=== PATIENT | male | born 1995 | race Caucasian/White ===

== ENCOUNTER → 2018-06-30 16:05 | Outpatient (CLI) | payer MEDICARE, MEDICAID, SELFPAY ==
[2015-10-23 00:17] VITALS: BMI 44.2
--- NOTE | 2018-06-30 16:18 | RAD_ITS ---
STUDY: X-RAY - ABDOMEN/PELVIS REASON FOR EXAM: Male, 22 years old. Kidney stone. TECHNIQUE: Three AP supine views of the abdomen and pelvis. COMPARISON: CT abdomen pelvis without contrast May 21, 2017 FINDINGS: There are bilateral posterior spinal fixation rods, secured in multiple levels with multiple cerclage wires. The rods are also connected to each other by transverse metal bars in the upper thoracic and lower lumbar regions. There is suggestion of a mid thoracic lordosis and upper lumbar kyphosis as well as extensive multilevel degenerative changes of the spine. Images are further distorted by rotation of the patient to the right. Grossly normal visualized lung bases. The heart size is difficult to accurately evaluate Gas-filled loops of bowel predominantly reside in the anterior inferior abdomen, but gas also mildly distends the rectal vault. The pattern is nonspecific. There is no demonstrated free abdominal air. The visualized liver, spleen and kidneys are grossly normal in size and morphology. The ventriculoperitoneal catheter overlaps the right chest and right abdomen, the distal catheter is not well seen. A separate catheter, presumably a suprapubic Bonilla tube, overlaps the low abdominal wall. A few small phleboliths project in the pelvic soft tissues. There are stable chronic deformities of the lower pelvis and hips. RAD/Abdomen Single View IMPRESSION: 1. No demonstrated kidney stone. 2. Nonspecific bowel gas pattern with gas in the rectal vault. 3. Chronic deformities of the spine and pelvis again noted. Bilateral spinal fixation rods again seen as well. 4. Ventriculoperitoneal catheter are again seen overlying the right chest and right abdomen, although its tip is not visualized. A probable suprapubic Bonilla catheter also overlaps the low abdomen. Electronically Signed: Rosalino Heard MD at 17:17 EST , Service support ,
[2018-06-30 16:57] LABS: Hematocrit 44.3 % (40-54); Hemoglobin 12.1 g/dl (13.0-16.5); Mean Corp Hgb Conc 27.3 g/gl (32-36); Mean Corpuscular Hgb 22.5 pg (27.0-32.0); Mean Corpuscular Volume 82.5 fL (80-94); Mean Platelet Vol. 10.5 fl (6.2-12.0); Platelet Count 550 K/mm3 (150-450); RBC Distribution Width CV 22.1 % (11.6-14.6); RBC Distribution Width SD 64.2 fl (35.1-43.9); Red Blood Count 5.37 M/mm3 (4.6-6.2); White Blood Count 7.1 K/mm3 (4.4-11.0)
[2018-06-30 17:03] LABS: Scan Indicated on CBC? Y/N YES- FLAGS NOTED
[2018-06-30 17:14] LABS: Anion Gap 8 (5-15); BUN 13 mg/dL (7-18); BUN/Creat Ratio 17.1 RATIO (10-20); Calcium,Total 8.5 mg/dL (8.5-10.1); Chloride 102 mmol/L (98-107); Creatinine, Serum 0.76 mg/dL (0.70-1.30); EST Glomerular Filtration Rate 133 mL/min (>60); Est Glom Filt Rate - Afr Amer 161 mL/min (>60); Glucose 84 mg/dL (74-106); Potassium 3.7 mmol/L (3.5-5.1); Sodium Level 141 mmol/L (136-145)
[2018-06-30 17:49] LABS: Differential Comment SCANNED
== END ==
PROVIDERS: Family Provider Family Medicine; PCP Family Medicine; Referring Provider Urology; Visit Provider Urology
DX: Q05.9 Spina bifida, unspecified (principal); N20.0 Calculus of kidney
CPT/HCPCS: 36415; 74018; 80048; 85027

== ENCOUNTER 2018-07-14 10:33 | Emergency (ER) | payer MEDICARE, MEDICAID, SELFPAY ==
[2018-07-14 10:35] VITALS: BP 134/88; PULSE 119; RESP 20; TEMP 37.3; O2SAT 92; BMI 47.5
[2018-07-14 10:50] VITALS: BP 138/82; PULSE 113; RESP 22; TEMP 37.3; O2SAT 94
--- NOTE | 2018-07-14 10:54 | EKG12_ITS ---
Test Reason : SOB Blood Pressure : / mmHG Vent. Rate : 114 BPM Atrial Rate : 114 BPM P-R Int : 118 ms QRS Dur : 082 ms QT Int : 326 ms P-R-T Axes : 026 107 018 degrees QTc Int : 449 ms Sinus tachycardia Rightward axis Borderline ECG No previous ECGs available Confirmed by EDITA DANIEL, MATEO ([id number]), school photograph editor CHARITO WAGGONER ([id number]) on 07/22/2018 9:46:08 AM Referred By: NICK Confirmed By:MATEO KOHLER MD
--- NOTE | 2018-07-14 10:54 | CT_ITS ---
STUDY: CTA CHEST REASON FOR EXAM: Male, 22 years old. Shortness of breath. Tachycardia. Spina bifida and Medina dl fixation. RADIATION DOSAGE (If Supplied By Facility): CTDIvol = ( 25.85 ) mGy, DLP = ( 468.62 ) mGycm TECHNIQUE: The examination was performed with the intravenous administration of Isovue 370 100ML IV. Post-processing of the angiographic images was performed, with multiplanar reformation and 3D reconstruction. Individualized dose optimization techniques were used for this CT. COMPARISON: None. FINDINGS: Limited study due to the patient's physical deformity. Normal enhancement of the main pulmonary artery and right and left pulmonary arteries. Normal enhancement of the bilateral peripheral pulmonary arteries. There is no demonstrated pulmonary embolism. Normal thoracic aorta and visualized great vessels. There is no demonstrated aortic dissection. Moderate sized pericardial effusion. Normal mediastinum. Normal hilar regions. Normal visualized trachea and bronchi. Limited inspiratory effort. Mild degree of vascular congestion. Normal pleura. Normal chest wall structures. Severe kyphoscoliosis with Medina dl fixation. Normal visualized upper abdomen. CT/CTA Chest W/WO Contrast IMPRESSION: Moderate sized pericardial effusion. Poor inspiratory effort with evidence of vascular crowding. Electronically Signed: Jesus Alberto Munoz, at 13:44 EDT , Service support ,
[2018-07-14 11:38] VITALS: BP 125/85; PULSE 114; RESP 27; O2SAT 94
[2018-07-14 11:56] LABS: Absolute Lymphocyte Count 2.12 X10^3/ul (0.83-4.51); Basophil# 0.03 X10^3/uL; Basophil% 0.2 % (0-1); Eosinophils% 3.1 % (0-5); Hematocrit 45.5 % (40-54); Hemoglobin 12.5 g/dl (13.0-16.5); Lymphocyte # 2.12 X10^3/ul (4.0); Lymphocyte % 16.4 % (19-41); Mean Corp Hgb Conc 27.5 g/gl (32-36); Mean Corpuscular Hgb 22.3 pg (27.0-32.0); Mean Corpuscular Volume 81.1 fL (80-94); Mean Platelet Vol. 9.7 fl (6.2-12.0); Monocyte# 1.33 X10^3/uL; Monocyte% 10.3 % (0-10); Neutrophil # 9.01 X10^3/uL (2.7-7.7); Neutrophil % 69.5 % (47-70); Platelet Count 522 K/mm3 (150-450); RBC Distribution Width CV 20.8 % (11.6-14.6); RBC Distribution Width SD 60.4 fl (35.1-43.9); Red Blood Count 5.61 M/mm3 (4.6-6.2)
[2018-07-14 11:57] LABS: Differential Indicated SCAN CRITERIA MET; POSITIVE COUNT NO; POSITIVE DIFFERENTIAL NO; POSITIVE MORPHOLOGY YES
[2018-07-14 12:00] LABS: Absolute Nucleated RBC Count 0.09 10^3/uL (0-5)
[2018-07-14 12:02] LABS: ALB/GLOB Ratio 0.3 RATIO (0.9-2.4); AST(SGOT) 14 U/L (15-37); Alanine Aminotransfer ALT/SGPT 9 U/L (16-61); Alkaline Phosphatase 99 U/L (45-117); Anion Gap 2 (5-15); BUN 23 mg/dL (7-18); BUN/Creat Ratio 25.2 RATIO (10-20); Calcium,Total 8.3 mg/dL (8.5-10.1); Chloride 104 mmol/L (98-107); Creatinine, Serum 0.91 mg/dL (0.70-1.30); EST Glomerular Filtration Rate 108 mL/min (>60); Est Glom Filt Rate - Afr Amer 131 mL/min (>60); Estimated Creatinine Clearance 96.67 ml/min; Globulin 6.5 g/dL (2.2-4.2); Glucose 81 mg/dL (74-106); Protein, Total 8.5 g/dL (6.4-8.2); Sodium Level 140 mmol/L (136-145)
[2018-07-14 12:16] LABS: Lactic Acid 0.8 mmol/L (0.4-2.0)
[2018-07-14 12:33] LABS: BNP,B-Type NATRIURETIC PEPTIDE 507.5 pg/mL (0-100)
[2018-07-14 12:38] LABS: Anisocytosis 1+
[2018-07-14 12:47] LABS: Mucous, Urine 0 SEEN /hpf (<or=2+); Squamous Epithelial Cells - UA 0 SEEN /hpf (0-5)
[2018-07-14 12:50] LABS: Glucose, Dipstick Normal (Normal); Ketone-Dipstick Negative (Negative); Leukocyte Esterase-Dipstick 500 /ul (Negative); Nitrite-Dipstick Positive (Negative); Occult Blood-Urine 250 /ul (Negative); Protein-Dipstick 100 mg/dl (Negative); Specific Gravity, Urine 1.015 (1.002-1.030); Urine Bilirubin Dipstick Negative (Negative); Urine Clarity Turbid (Clear); Urine Urobilinogen Normal (Normal); Urine pH 6.5 (5.0 - 8.0)
[2018-07-14 12:56] LABS: Color, Urine SEE COMMENT BELOW (Yellow); White Blood Cells >100 SEEN /hpf (0-5)
--- NOTE | 2018-07-14 12:56 | ED.VISSUMM ---
- ER Visit Summary Date of Service: 07/14/18 Chief Complaint: Shortness of breath History of Present Illness: The patient is a 22 M with intermittent tachycardia and shortness of breath for 2 months. Today at work he was increasingly short of breath and his pulse ox was 64% on room air. He is not sure what is causing his symptoms. He said he is feeling better with nasal cannula oxygen. He does have a history of paraplegia from spina bifida. History of a suprapubic catheter with UTIs and sepsis. Also reports a history of pressure ulcers. Denies any history of cardiac disease, lung disease, pneumonia, PE, heart failure. Physical Examination: Afebrile. Heart rate 113 and respiratory rate 22. 94% on nasal cannula. Patient is alert and oriented. No acute distress. Sitting and breathing comfortably. He is in a wheelchair. Heart tachycardic but regular. Lungs are clear. Abdomen soft and nontender. Extremities are edematous. Test Results: EKG showed sinus rhythm at a rate of 114. White count 13 and hemoglobin 12.5. Platelets 522. CO2 34, BUN 23. Hepatic panel unremarkable. Coags pending. Urine pending. Troponin normal. BNP 507 and lactate normal. Cultures pending. CTA pending. Emergency Department Course and Treatment: Patient presents with shortness of breath and hypoxia. He is improved on a nasal cannula, but it was causing him some discomfort and he was switched to a Ventimask. He maintained normal saturations. His EKG showed sinus tachycardia and troponin was normal. BNP was 507. CTA was done. This was limited. It was significant for a moderate pericardial effusion. This looks like a new finding. The patient has no known history of this, and I could not identify any prior effusion on other imaging. Patient also has a white count of 13, hemoglobin 12.5, platelets 522. Lactate was normal. Urinalysis showed signs of infection. Cultures are pending. He was treated with Rocephin. He was not in septic shock. The remainder of his workup was unremarkable. I spoke with the hospitalist and assembler for puller over hand here. Because of the new pericardial effusion, they do not have the capabilities to care for him at this facility. The patient requested [facility], but no beds were available so he requested [facility], and they are currently on page for transfer. Recent has remained stable. He is receiving antibiotics and on oxygen. Treatment Plan: As above Disposition: Transfer Impression: 1. UTI 2. Sepsis 3. Pericardial effusion This note was generated with DigiZmart dictation software. It may contain incorrect words, spelling, and punctuation that were not noted in review of the chart prior to signing ED Disposition - Plan for ED Patient: Referrals: Cameron Romero DO [Primary Care Provider] -
[2018-07-14 12:58] LABS: Bacteria 4+ /hpf (None Seen)
[2018-07-14 12:59] LABS: Red Blood Cells-Urine 0-5 SEEN /hpf (0-5)
--- NOTE | 2018-07-14 12:59 | ED.DCSUM_ITS ---
- ER Visit Summary Date of Service: 07/14/18 Chief Complaint: Shortness of breath History of Present Illness: The patient is a 22 M with intermittent tachycardia and shortness of breath for 2 months. Today at work he was increasingly short of breath and his pulse ox was 64% on room air. He is not sure what is causing his symptoms. He said he is feeling better with nasal cannula oxygen. He does have a history of paraplegia from spina bifida. History of a suprapubic catheter with UTIs and sepsis. Also reports a history of pressure ulcers. Denies any history of cardiac disease, lung disease, pneumonia, PE, heart failure. Physical Examination: Afebrile. Heart rate 113 and respiratory rate 22. 94% on nasal cannula. Patient is alert and oriented. No acute distress. Sitting and breathing comfortably. He is in a wheelchair. Heart tachycardic but regular. Lungs are clear. Abdomen soft and nontender. Extremities are edematous. Test Results: EKG showed sinus rhythm at a rate of 114. White count 13 and hemoglobin 12.5. Platelets 522. CO2 34, BUN 23. Hepatic panel unremarkable. Coags pending. Urine pending. Troponin normal. BNP 507 and lactate normal. Cultures pending. CTA pending. Emergency Department Course and Treatment: Patient presents with shortness of breath and hypoxia. He is improved on a nasal cannula, but it was causing him some discomfort and he was switched to a Ventimask. He maintained normal saturations. His EKG showed sinus tachycardia and troponin was normal. BNP was 507. CTA was done. This was limited. It was significant for a moderate pericardial effusion . This looks like a new finding. The patient has no known history of this, and I could not identify any prior effusion on other imaging. Patient also has a white count of 13, hemoglobin 12.5, platelets 522. Lactate was normal. Urinalysis showed signs of infection. Cultures are pending. He was treated with Rocephin. He was not in septic shock. The remainder of his workup was unremarkable. I spoke with the hospitalist and graphics coordinator here. Because of the new pericardial effusion, they do not have the capabilities to care for him at this facility. The patient requested [facility], but no beds were available so he requested [facility], and they are currently on page for transfer. Recent has remained stable. He is receiving antibiotics and on oxygen. Treatment Plan: As above Disposition: Transfer Impression: 1. UTI 2. Sepsis 3. Pericardial effusion This note was generated with Ent[employer] dictation software. It may contain incorrect words, spelling, and punctuation that were not noted in review of the chart prior to signing ED Disposition - Plan for ED Patient: Referrals: Cameron Romero DO [Primary Care Provider] -
[2018-07-14 13:03] VITALS: BP 113/76; PULSE 105; RESP 33; TEMP 37.2; O2SAT 93
[2018-07-14 13:18] LABS: International Normalized Ratio 1.2; Partial Thromboplast Time 32.6 Seconds (24.1-36.2); Prothrombin Time (Protime)PT. 15.3 SECONDS (11.7-14.9)
[2018-07-14] MEDS: Ceftriaxone 1 GM/50 ML BAG IV (13:48)
--- NOTE | 2018-07-14 14:45 | CASEMGMT ---
RN CM Assessment Introduced role of RN CM to patient and parents Oliva Hammond at bedside. Patient is alert, oriented and able to participate in RN CM Assessment. Care providers, pharmacy, and demographics verified. Presentation: CC: Patient states was at work- [employer], [employer] and has c/o SOB, Tachycardia x2 months with increased SOB today, pulse ox 64%ra and Dusky with work nurse. PCP: Dr Cameron Romero Specialists: Uro- Dr Cohen Preferred Pharmacy: [facility] Insurance: Medicaid Prescription Benefit: Yes LNOK: Parents Maida/Victor M Hammond Living Arrangements: Lives with parents in a SS Home with ramp. WC Bound, Requires assistance with all ADL's. Denies having Passport/Waiver Services. Transportation: [employer] ([employer]- Voucher Program) DME: WC, Jessy [employer], Hosp. Bed- [facility], Shower Chair. No preference- preference through insurance. HHC: Yes- Past with [facility]. Current- [facility]- RN for VS/Check SNF: None in past, No preference, through insurance. DC PLAN: Home with resumption of HH and possible Home O2. Goal: Home. Issues: would like some assistance with exchanging hospital bed as [facility] closed and would like a new one since current one- they have to use regular mattress on it. Gatito Smith RNCM
[2018-07-14 15:18] VITALS: BP 113/70; PULSE 115; RESP 24; TEMP 36.9; O2SAT 92
--- NOTE | 2018-07-14 16:31 | ED.RN ---
TALKED TO PABLO CHARISMA ETA TO TAKE PATIENT TO [facility] IS 15 MIN
[2018-07-14 16:33] VITALS: BP 111/70; PULSE 110; RESP 32; TEMP 36.4; O2SAT 95
[2018-07-14 21:07] LABS: NRBC Flagged by Analyzer 0.7 % (0-5)
== END 2018-07-14 17:05 | disposition short-term general hospital (02) ==
PROVIDERS: Emergency Provider Emergency Medicine; Family Provider Family Medicine; PCP Family Medicine
DX: A41.9 Sepsis, unspecified organism (principal); N39.0 Urinary tract infection, site not specified; I31.3 Pericardial effusion (noninflammatory); G82.20 Paraplegia, unspecified; Q05.9 Spina bifida, unspecified
CPT/HCPCS: 36415; 71275; 80053; 81001; 83605; 83880; 84484; 85025; 85610; 85730; 87040; 87077; 87086; 87088; 87186; 93005; 96365; 99285; J7050; Q9967; A4216

== ENCOUNTER 2018-07-28 15:40 | Emergency (ER) | payer MEDICARE, MEDICAID, SELFPAY ==
[2018-07-28 15:41] VITALS: BP 122/72; PULSE 108; RESP 16; TEMP 36.6; O2SAT 90; BMI 46.7
[2018-07-28 16:12] VITALS: BP 106/66; PULSE 94; RESP 16; O2SAT 89
--- NOTE | 2018-07-28 16:38 | ED.VISSUMM ---
- ER Visit Summary Date of Service: 07/28/18 Chief Complaint: Hematuria History of Present Illness: The patient is a 22 M who presents with hematuria that was noticed today. Father states that patient has been passing clots through both his suprapubic catheter site and penis. Father denies any fevers or chills. Mother states that while the patient was at [facility] in [place] his suprapubic catheter was accidentally pulled out with the balloon inflated. Patient is currently being treated for urinary tract infection. Patient had been on Xarelto but this was stopped 5 days ago. Physical Examination: Vital signs are stable except for slight tachycardia of 108. Patient is afebrile. Patient is in no acute distress. Oral mucosa is pink and moist. Neck is supple. Trachea is midline. There is no JVD noted. Heart was regular and tachycardic. Lungs are clear and equal bilateral. Abdomen is soft. Bowel sounds are normal. There is no tenderness. There is no rebound or guarding noted. Test Results: CBC shows a mild anemia with a hemoglobin of 10.4. PT with INR and PTT were obtained and were essentially within normal limits. Metabolic profile was essentially within normal limits. Emergency Department Course and Treatment: Suprapubic catheter was replaced under sterile conditions by myself. Urinalysis was ordered but was unable to be obtained. There is no further bleeding from the stoma, suprapubic catheter, or penis here in the emergency department. Father was instructed to follow-up with the patient's primary care physician in 5-7 days. Patient and his father understood and were agreeable with the plan. All questions were answered. Disposition: Discharge home Impression: Hematuria This note was generated with Gamar dictation software. It may contain incorrect words, spelling, and punctuation that were not noted in review of the chart prior to signing ED Disposition - Plan for ED Patient: Disposition: Home or Assisted Living Diagnosis: Hematuria Instructions: ED Hematuria Referrals: Cameron Romero DO [Primary Care Provider] - Additional Instructions: Continue the Levaquin as prescribed until gone. Follow-up with your primary care physician in 5-7 days. Return if worse in any way.
[2018-07-28 16:41] LABS: International Normalized Ratio 1.1; Partial Thromboplast Time 20.4 Seconds (24.1-36.2); Prothrombin Time (Protime)PT. 14.3 SECONDS (11.7-14.9)
[2018-07-28 16:55] LABS: Anion Gap 4 (5-15); BUN 10 mg/dL (7-18); BUN/Creat Ratio 12.9 RATIO (10-20); Calcium,Total 8.4 mg/dL (8.5-10.1); Chloride 98 mmol/L (98-107); Creatinine, Serum 0.78 mg/dL (0.70-1.30); EST Glomerular Filtration Rate 130 mL/min (>60); Est Glom Filt Rate - Afr Amer 157 mL/min (>60); Estimated Creatinine Clearance 112.78 ml/min; Glucose 91 mg/dL (74-106); Sodium Level 135 mmol/L (136-145)
[2018-07-28 17:00] LABS: Absolute Lymphocyte Count 2.49 X10^3/ul (0.83-4.51); Absolute Neutrophil Count 8.4 X10^3/uL (2.0-7.7); Basophil# 0.04 X10^3/uL; Basophil% 0.3 % (0-1); Eosinophil# 0.69 X10^3/uL; Eosinophils% 5.5 % (0-5); Hematocrit 36.5 % (40-54); Hemoglobin 10.4 g/dl (13.0-16.5); Lymphocyte # 2.49 X10^3/ul (4.0); Lymphocyte % 19.7 % (19-41); Mean Corp Hgb Conc 28.5 g/gl (32-36); Mean Corpuscular Hgb 22.3 pg (27.0-32.0); Mean Corpuscular Volume 78.2 fL (80-94); Monocyte% 7.9 % (0-10); Neutrophil # 8.38 X10^3/uL (2.7-7.7); Neutrophil % 66.3 % (47-70); Platelet Count 423 K/mm3 (150-450); RBC Distribution Width CV 22.2 % (11.6-14.6); RBC Distribution Width SD 62.1 fl (35.1-43.9); Red Blood Count 4.67 M/mm3 (4.6-6.2); White Blood Count 12.6 K/mm3 (4.4-11.0)
[2018-07-28 17:05] LABS: Differential Indicated SCAN CRITERIA MET; POSITIVE COUNT NO; POSITIVE DIFFERENTIAL NO; POSITIVE MORPHOLOGY YES
[2018-07-28 17:07] LABS: Anisocytosis 1+; Hypochromasia RARE; Microcytosis 1+; Ovalocyte RARE; Platelet Estimate SLT INC (ADEQ); Platelet Morphology LARGE; Target Cells 1+
--- NOTE | 2018-07-28 19:39 | ED.RN ---
FATHER RINGS OUT STATING THAT THEY WOULD LIKE TO BE DISCHARGED AND THEY HAVE A FOLLOW UP APPOINTMENT WITH HIS PCP TOMORROW. DR. VELÁZQUEZ MADE AWARE.
[2018-07-28 19:51] VITALS: BP 121/80; PULSE 99; RESP 16; O2SAT 100
[2018-07-28 19:52] LABS: Bacteria 0 SEEN /hpf (None Seen); Mucous, Urine 0 SEEN /hpf (<or=2+); Squamous Epithelial Cells - UA 0 SEEN /hpf (0-5)
[2018-07-28 19:53] LABS: Glucose, Dipstick Normal (Normal); Ketone-Dipstick Negative (Negative); Leukocyte Esterase-Dipstick 500 /ul (Negative); Nitrite-Dipstick Negative (Negative); Occult Blood-Urine 250 /ul (Negative); Protein-Dipstick 500 mg/dl (Negative); Urine Bilirubin Dipstick Negative (Negative); Urine Clarity Cloudy (Clear); Urine Urobilinogen Normal (Normal)
[2018-07-28 19:57] LABS: Color, Urine SEE COMMENT BELOW (Yellow)
[2018-07-28 20:02] LABS: Red Blood Cells-Urine > 100 SEEN /hpf (0-5); White Blood Cells 5-10 SEEN /hpf (0-5)
[2018-07-28 20:15] VITALS: BP 111/70; PULSE 90; RESP 16; O2SAT 99
== END 2018-07-28 20:18 | disposition home or self-care (01) ==
PROVIDERS: Emergency Provider Emergency Medicine; Family Provider Family Medicine; PCP Family Medicine
DX: R31.9 Hematuria, unspecified (principal); N39.0 Urinary tract infection, site not specified; E66.9 Obesity, unspecified; R19.7 Diarrhea, unspecified; Q05.9 Spina bifida, unspecified
CPT/HCPCS: 80048; 81001; 85025; 85610; 85730; 99284; J7030; A4216

== ENCOUNTER → 2018-09-07 16:47 | Outpatient (CLI) | payer MEDICARE, MEDICAID, SELFPAY ==
[2018-09-07 13:42] VITALS: BMI 46.6
[2018-09-07 17:56] LABS: Anion Gap 3 (5-15); BUN 16 mg/dL (7-18); Calcium,Total 9.1 mg/dL (8.5-10.1); Chloride 104 mmol/L (98-107); EST Glomerular Filtration Rate 147 mL/min (>60); Est Glom Filt Rate - Afr Amer 178 mL/min (>60); Glucose 81 mg/dL (74-106); Magnesium 2.3 mg/dL (1.6-2.6); Sodium Level 138 mmol/L (136-145)
== END ==
PROVIDERS: Family Provider Family Medicine; PCP Family Medicine; Referring Provider Internal Medicine Cardiovascular Disease; Visit Provider Internal Medicine Cardiovascular Disease
DX: I31.3 Pericardial effusion (noninflammatory) (principal); I27.21 Secondary pulmonary arterial hypertension
CPT/HCPCS: 36415; 80048; 83735

== ENCOUNTER → 2018-09-30 15:11 | Outpatient (CLI) | payer MEDICARE, MEDICAID, SELFPAY ==
[2018-09-07 13:42] VITALS: BMI 46.6
--- NOTE | 2018-09-30 15:20 | ECHOCS_ITS ---
Reason For Study: Pericardial Effusion Procedure This was a 2D Doppler, Color Flow transthoracic echocardiogram. The study was technically difficult. Contrast injection was performed. Patient was scanned in wheel chair. Exam performed in department. Left Ventricle Normal LV size. Moderate concentric left ventricular hypertrophy. Left ventricular systolic function is normal. The estimated ejection fraction is 55 %. No regional wall motion abnormalities noted. Atria The left atrium is not well visualized. The right atrium is not well visualized. Mitral Valve Mitral valve not well visualized. Tricuspid Valve The tricuspid valve is not well visualized. Aortic Valve The aortic valve is not well visualized. Pulmonic Valve The pulmonic valve is not well visualized. Great Vessels Normal aortic root. The pulmonary artery is normal size. Normal inferior vena cava. Pericardium/Pleural No pericardial effusion. Medication 22 gauge I.V. with prn adaptor inserted into right arm. Diluted definity 3ml given slow IV push to enhance endocardial definition. MMode/2D Measurements & Calculations LVIDd: 3.6 cm IVSd: 1.4 cm LAV(MOD-sp4): 42.5 ml LVIDs: 2.7 cm LVPWd: 1.3 cm FS: 24.7 % LVAd ap4: 30.0 cm2 SV(MOD-sp4): 49.5 ml SV(sp4-el): 53.1 ml EDV(MOD-sp4): 97.7 ml EDV(sp4-el): 99.5 ml LVAs ap4: 19.1 cm2 ESV(MOD-sp4): 48.2 ml ESV(sp4-el): 46.3 ml EF(MOD-sp4): 50.7 % EF(sp4-el): 53.4 % LA A4 area: 16.5 cm2 Time Measurements MV dec time: 0.16 sec Doppler Measurements & Calculations MV E max sam: 74.9 cm/sec Lat Peak E' Sam: 10.8 cm/sec Med Peak E' Sam: 7.1 cm/sec MV A max sam: 95.5 cm/sec E/E' lat: 6.9 E/E' med: 10.6 MV E/A: 0.78 MV V2 max: 100.9 cm/sec MV P1/2t max sam: 78.3 cm/sec Ao V2 max: 96.3 cm/sec MV max P.1 mmHg MV P1/2t: 53.3 msec Ao max P.7 mmHg MV V2 mean: 55.2 cm/sec MV mean P.5 mmHg MV dec slope: 430.1 cm/sec2 MV V2 VTI: 16.7 cm MVA(P1/2t): 4.1 cm2 LV V1 max: 86.6 cm/sec PA V2 max: 104.0 cm/sec LV V1 max P.0 mmHg Interpretation Summary Normal LV size. Left ventricular systolic function is normal. The estimated ejection fraction is 55 %. Moderate concentric left ventricular hypertrophy. No pericardial effusion. Ordering Physician: Carroll Holman Referring Physician: Carroll Holman Performed By: Ahsan Loredo [facility]
== END ==
PROVIDERS: Family Provider Family Medicine; PCP Family Medicine; Referring Provider Internal Medicine Cardiovascular Disease; Visit Provider Internal Medicine Cardiovascular Disease
DX: I31.3 Pericardial effusion (noninflammatory) (principal); I27.21 Secondary pulmonary arterial hypertension
CPT/HCPCS: 93306; Q9957; A4216; C8929

== ENCOUNTER → 2019-03-28 13:05 | Outpatient (CLI) | payer MEDICARE, MEDICAID, SELFPAY ==
[2018-10-27 14:27] VITALS: BMI 46.6
== END ==
PROVIDERS: Family Provider Family Medicine; PCP Family Medicine; Visit Provider Family Medicine
DX: R31.9 Hematuria, unspecified (principal)
CPT/HCPCS: 87077; 87086; 87088

== ENCOUNTER → 2019-04-10 14:48 | Outpatient (CLI) | payer MEDICARE, MEDICAID, SELFPAY ==
[2018-10-27 14:27] VITALS: BMI 46.6
[2019-04-10 15:44] LABS: Absolute Lymphocyte Count 3.11 X10^3/uL (0.83-4.51); Absolute Neutrophil Count 8.5 X10^3/uL (2.0-7.7); Basophil# 0.07 X10^3/uL; Basophil% 0.5 % (0-1); Eosinophil# 0.38 X10^3/uL; Eosinophils% 2.9 % (0-5); Hematocrit 33.8 % (40-54); Hemoglobin 9.3 g/dL (13.0-16.5); Lymphocyte # 3.11 X10^3/ul (4.0); Lymphocyte % 23.9 % (19-41); Mean Corp Hgb Conc 27.5 g/dL (32-36); Mean Platelet Vol. 9.1 fl (6.2-12.0); Monocyte# 0.93 X10^3/uL; Monocyte% 7.1 % (0-10); NRBC Flagged by Analyzer 0 % (0-5); Neutrophil # 8.49 X10^3/uL (2.7-7.7); Neutrophil % 65.3 % (47-70); POSITIVE MORPHOLOGY YES; Platelet Count 710 K/mm3 (150-450); RBC Distribution Width CV 20.6 % (11.6-14.6); RBC Distribution Width SD 49.1 fl (35.1-43.9)
[2019-04-10 16:04] LABS: Differential Indicated SCAN CRITERIA MET
[2019-04-10 16:18] LABS: Anion Gap 5 (5-15); BUN 14 mg/dL (7-18); BUN/Creat Ratio 19.4 RATIO (10-20); Calcium,Total 8.9 mg/dL (8.5-10.1); Chloride 106 mmol/L (98-107); Creatinine, Serum 0.72 mg/dL (0.70-1.30); EST Glomerular Filtration Rate 140 mL/min (>60); Est Glom Filt Rate - Afr Amer 170 mL/min (>60); Glucose 91 mg/dL (74-106); Sodium Level 139 mmol/L (136-145)
[2019-04-10 16:20] LABS: Anisocytosis 2+; Hypochromasia 1+; Microcytosis 2+; Platelet Estimate MKD INC (ADEQ); Red Cell Morphology N CHROM NORMAL (NORM C&C)
[2019-04-10 16:21] LABS: Ovalocyte RARE
[2019-04-10 16:32] LABS: Target Cells RARE
== END ==
PROVIDERS: Family Provider Family Medicine; PCP Family Medicine; Referring Provider Physician Assistant Medical; Visit Provider Physician Assistant Medical
DX: I27.21 Secondary pulmonary arterial hypertension (principal); I31.3 Pericardial effusion (noninflammatory); G47.33 Obstructive sleep apnea (adult) (pediatric); E03.9 Hypothyroidism, unspecified
CPT/HCPCS: 36415; 80048; 84443; 85025

== ENCOUNTER → 2019-04-17 13:35 | Outpatient (CLI) | payer MEDICARE, MEDICAID, SELFPAY ==
[2018-10-27 14:27] VITALS: BMI 46.6
== END ==
PROVIDERS: Family Provider Family Medicine; PCP Family Medicine; Referring Provider Family Medicine; Visit Provider Family Medicine
DX: G47.33 Obstructive sleep apnea (adult) (pediatric) (principal)
CPT/HCPCS: 94762

== ENCOUNTER → 2019-04-20 16:08 | Outpatient (CLI) | payer MEDICARE, MEDICAID, SELFPAY ==
[2018-10-27 14:27] VITALS: BMI 46.6
[2019-04-20 17:17] LABS: Ferritin 10 ng/mL (26-388); Iron 18 ug/dL (65-175); LDH 139 U/L (87-241)
== END ==
PROVIDERS: Family Provider Family Medicine; PCP Family Medicine; Visit Provider Family Medicine
DX: D50.9 Iron deficiency anemia, unspecified (principal)
CPT/HCPCS: 36415; 82728; 83540; 83615

== ENCOUNTER 2022-02-10 18:45 | Inpatient (IN) | payer MEDICARE, MEDICAID, SELFPAY ==
[2022-02-10 18:47] VITALS: BP 120/74; PULSE 107; RESP 19; TEMP 36.6; O2SAT 97; BMI 47.9
[2022-02-10 19:33] LABS: Hematocrit 42.2 % (40-54); Hemoglobin 12.6 g/dL (13.0-16.5); Mean Corp Hgb Conc 29.9 g/dL (32-36); Mean Corpuscular Hgb 25.8 pg (27.0-32.0); Mean Corpuscular Volume 86.3 fL (80-94); Mean Platelet Vol. 9.5 fl (6.2-12.0); Platelet Count 580 K/mm3 (150-450); RBC Distribution Width CV 17.4 % (11.6-14.6); RBC Distribution Width SD 54.7 fl (35.1-43.9); Red Blood Count 4.89 M/mm3 (4.6-6.2); White Blood Count 17.8 K/mm3 (4.4-11.0)
[2022-02-10 19:52] LABS: Anion Gap 12 (5-15); BUN 86 mg/dL (7-18); Calcium,Total 8.3 mg/dL (8.5-10.1); Chloride 114 mmol/L (98-107); Creatinine, Serum 3.58 mg/dL (0.70-1.30); EST Glomerular Filtration Rate 22 mL/min (>60); Est Glom Filt Rate - Afr Amer 26 mL/min (>60); Estimated Creatinine Clearance 23.72 ml/min; Glucose 89 mg/dL (74-106); Potassium 5.4 mmol/L (3.5-5.1); Sodium Level 138 mmol/L (136-145)
[2022-02-10 20:01] LABS: Lactic Acid 0.7 mmol/L (0.4-1.9)
[2022-02-10] MEDS: 0.9% Normal Saline 1,000 ML 1000 ML IV (20:03)
[2022-02-10 20:05] VITALS: BP 122/78; PULSE 105; RESP 18; TEMP 36.8; O2SAT 98
[2022-02-10 20:28] LABS: Mucous, Urine 0 SEEN /hpf (<or=2+); Squamous Epithelial Cells - UA 0 SEEN /hpf (0-5)
[2022-02-10 20:33] LABS: Color, Urine Brown (Yellow); Glucose, Dipstick Normal (Normal); Ketone-Dipstick 5 mg/dl (Negative); Leukocyte Esterase-Dipstick 500 /ul (Negative); Nitrite-Dipstick Positive (Negative); Occult Blood-Urine 250 /ul (Negative); Protein-Dipstick 500 mg/dl (Negative); Specific Gravity, Urine 1.015 (1.002-1.030); Urine Bilirubin Dipstick Negative (Negative); Urine Clarity Cloudy (Clear); Urine Urobilinogen Normal (Normal)
[2022-02-10 20:40] LABS: White Blood Cells >100 SEEN /hpf (0-5)
[2022-02-10 20:41] LABS: Bacteria 3+ /hpf (None Seen); Red Blood Cells-Urine > 100 SEEN /hpf (0-5)
[2022-02-10 20:52] LABS: International Normalized Ratio 1.4; Prothrombin Time (Protime)PT. 16.9 SECONDS (11.7-14.9)
[2022-02-10 20:53] LABS: Partial Thromboplast Time 35.3 Seconds (24.1-36.2)
--- NOTE | 2022-02-10 20:59 | EX.ED.DYSGE1 ---
HPI History of Present Illness Chief Complaint: Complaint Detail of Chief Complaint: Failed Patient treatment UTI and diarrhea Informant: patient and parent Onset/Context/Timing Onset: Weeks (Treated with amoxicillin 2 weeks ago. Presently on levofloxacin) Context: Sudden Onset Timing: Intermittent Quality: Foul-smelling urine Current Severity: Mild Maximum Severity: Moderate Worsened by: Nothing Relieved by: Initial antibiotic Associated Symptoms Associated Symptoms: Diarrhea. Subjective fever. Dehydration Narrative Narrative: Patient is a 26-year-old male with spina bifida who is paraplegic who has history of recurrent urinary tract infection. He also has history of secondary pulmonary hypertension and chronic systolic congestive heart failure. Patient presents because of persistent urinary symptoms. He has no sensation. He states his stool is black. He has been taking Pepto-Bismol. Stool does not have an odor to it nor is it sticky. Patient denies documented fever. Patient denies headache, visual, ocular auditory symptoms. Patient denies cardiac respiratory symptoms. Prior similar symptoms: Yes Recent Illness/Hospitalization: Yes [facility] Medical History (Updated 02/10/22 @ 21:[address] 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, stage 3 Right-sided heart failure Secondary pulmonary arterial hypertension Spina bifida Systolic CHF Umbilical hernia Home Medications spironolactone 25 mg tablet 25 mg PO DAILY 30 days #30 tabs 08/30/18 [History Last Taken Unknown] furosemide 40 mg tablet 40 mg PO DAILY 30 days #30 tabs 09/07/18 [History Last Taken Unknown] Allergy/AdvReac Type Severity Reaction Status Date / Time ampicillin Allergy rash Verified 11/16/19 07:43 fentanyl Allergy Rash Verified 11/16/19 07:43 latex Allergy Hives Verified 11/16/19 07:43 meropenem Allergy rash Verified 11/16/19 07:43 morphine Allergy Hives Verified 11/16/19 07:43 Family History Grandfather Heart disease Surgical History (Updated 02/10/22 @ 21:[address] Maureen Ferguson MD) History of back surgery History of foot surgery History of ventriculoperitoneal shunting S/P cutaneous-vesicostomy Status post laser lithotripsy of ureteral calculus Social History (Updated 02/10/22 @ 21:[address] Maureen Ferguson MD) household members: family Smoking Status: Never smoker alcohol intake: never substance use type: does not use ROS ROS ED Constitutional Constitutional ED: Reports fever(s) and subjective; Denies chills, sweats or weight loss Eyes Eyes: Denies blurry vision, change in vision or diplopia ENT ENT ED: Denies ear pain, rhinorrhea or sore throat Cardiovascular Cardiovascular: Denies chest pain, orthopnea or palpitations Respiratory/Chest Respiratory/Chest: Denies cough, dyspnea, dyspnea on exertion or orthopnea Gastrointestinal Gastrointestinal: Reports diarrhea; Denies abdominal pain, constipation, melena, nausea or vomiting Genitourinary Genitourinary ED: Reports other Details: Foul-smelling urine. ; Denies dysuria, hematuria or urinary frequency Musculoskeletal Musculoskeletal: Denies arthralgias, back pain, myalgias or neck pain Integumentary Denies abscess, Abrasions or rash Neurologic Neurologic: Reports weakness; Denies headache(s) or paresthesias Endocrine Endocrinology: Denies cold intolerance or heat intolerance Hematologic/Lymphatic Hematologic/Lymphatic: Reports systems reviewed and no addt'l complaints, except as documented and none Allergic/Immunologic Allergic/Immunologic ED: Denies mouth swelling or tongue swelling EXAM Physical Exam Const Vital Signs: 02/10/22 18:47 02/10/22 20:05 02/10/22 21:26 Temperature 97.9 F 98.3 F 98.3 F Temperature Source Temporal Oral Oral Pulse Rate 107 H 105 H 102 H Respiratory Rate 19 H 18 16 Blood Pressure 120/74 122/78 H 126/75 H Blood Pressure Mean 89 92 92 Pulse Ox 97 98 98 Oxygen Delivery Method Room Air Room Air Room Air Positive well nourished, well developed, obese and unkempt General Appearance ED: unkempt, well developed, NAD and pallor; Negative for cyanotic or diaphoretic Nutritional Appearance: obese HEENT Reports dry mucous membranes HEENT Narrative: Head is atraumatic normocephalic. Ears normal. Nares patent. Uvula midline. No deviation tongue or protrusion. Mouth ED: Yes dry mucous membranes Mouth: dry mucous membranes Eyes PERRL and EOMs intact bilaterally General Eye ED: Negative for pale conjunctiva or scleral icterus Neck no lymphadenopathy, supple and no JVD Chest Wall inspection of chest normal and palpation of chest normal Resp normal respiratory effort and clear to auscultation bilaterally Cardio regular rhythm, S1 normal heart sound, S2 normal heart sound and no murmurs Rate: tachycardic GI non-tender, non-distended, hepatosplenomegaly and no masses Inspection: abdominal distention Auscultation: hypoactive bowel sounds Palpation: soft Back/Spine no CVA tenderness Extremity Negative for normal to inspection Extremity Narrative: Patient is paraplegic. General Extremety ED: Yes edema; Negative for tenderness General Extremity: edema Neuro oriented x3 and CN's II-XII intact bilaterally Sensorium / Orientation: alert Psych mental status grossly normal Appearance: unkempt Skin no rashes or lesions noted and no wounds General Skin Exam: pallor; Negative for jaundice Sepsis Attestation Sepsis Alert: Yes Sepsis Attestation: Agree w/Sepsis Date exam was performed: 02/10/22 Time exam was performed: 19:32 Possible Source of Sepsis: Genitourinary Sepsis Organ Dysfunction Criteria Present: Creatinine > 2.0 mg/dL MDM MDM MDM Narrative Medical decision making narrative: She presents with diarrhea. Suspect his black diarrhea is due to Pepto-Bismol. Suspect this is antibiotic induced. Stool was sent for C. difficile since this needs to be ruled out. Patient's urine has the appearance of bloody cream of mushroom soup. Clinically patient dehydrated. 1 L of normal saline was ordered. He does have evidence of endorgan dysfunction. Based on his allergies to ampicillin, meropenem and the fact he is present levofloxacin with failure he was treated with gentamicin. Since he is not hemodynamically unstable he did not receive the 30 cc/kg bolus furthermore he has a history of chronic heart failure. Lab Data Attestation: I reviewed the patient's lab results. Lab results narrative: White count is elevated. Basic metabolic panel is remarkable for a CO2 of 12 with a normal anion gap. BUN and creatinine are elevated 86 and 3.58 respectively. Lactate is 1. Coags are normal. Urine does consent within fraction. Prior to administration antibiotics blood cultures were obtained. Labs: Laboratory Results - last 24 hr 02/10/22 02/10/22 02/10/22 19:25 19:25 19:25 WBC 17.8 H RBC 4.89 Hgb 12.6 L Hct 42.2 MCV 86.3 MCH 25.8 L MCHC 29.9 L RDW Std Deviation 54.7 H RDW Coeff of Francisco 17.4 H Plt Count 580 H MPV 9.5 PT INR APTT Sodium 138 Potassium 5.4 H Chloride 114 H Carbon Dioxide 12.0 L Anion Gap 12 BUN 86 H Creatinine 3.58 H Estim Creat Clear Calc 23.72 Est GFR (MDRD) Af Amer 26 L Est GFR (MDRD) Non-Af 22 L BUN/Creatinine Ratio 24.0 H Glucose 89 Lactic Acid 0.7 Calcium 8.3 L Urine Color Urine Clarity Urine pH Ur Specific [place] Urine Protein Urine Glucose (UA) Urine Ketones Urine Occult Blood Urine Nitrite Urine Bilirubin Urine Urobilinogen Ur Leukocyte Esterase Urine RBC Urine WBC Ur Squamous Epith Cells Urine Bacteria Urine Mucus 02/10/22 02/10/22 20:18 20:35 WBC RBC Hgb Hct MCV MCH MCHC RDW Std Deviation RDW Coeff of Francisco Plt Count MPV PT 16.9 H INR 1.4 APTT 35.3 Sodium Potassium Chloride Carbon Dioxide Anion Gap BUN Creatinine Estim Creat Clear Calc Est GFR (MDRD) Af Amer Est GFR (MDRD) Non-Af BUN/Creatinine Ratio Glucose Lactic Acid Calcium Urine Color Brown Urine Clarity Cloudy Urine pH 8.0 Ur Specific [place] 1.015 Urine Protein 500 H Urine Glucose (UA) Normal Urine Ketones 5 H Urine Occult Blood 250 H Urine Nitrite Positive H Urine Bilirubin Negative Urine Urobilinogen Normal Ur Leukocyte Esterase 500 H Urine RBC > 100 SEEN Urine WBC >100 SEEN Ur Squamous Epith Cells 0 SEEN Urine Bacteria 3+ Urine Mucus 0 SEEN Rhythm Strip Rhythm Strip: Sinus Tach Rate: 105 Ectopy: None Critical Care Time Critical Care Time: Yes Critical care time (excluding procedures): 30-74 minutes (22), Including time spent: (History, physical, documentation, review of prior records), Discussing w/Patient &/or Family/[employer] (Discussion with patient and family regarding laboratory results), Discussing w/Consultants and Arranging Admission or Transfer Discharge Plan Dx/Rx/DC Orders Clinical Impression: Complicated urinary tract infection, Paraplegia, Spina bifida, Severe sepsis with acute organ dysfunction, Diarrhea, Chronic systolic (congestive) heart failure Disposition Disposition: Acute Care [facility]
--- NOTE | 2022-02-10 21:21 | PCM.HP.STD ---
HPI - General General Date of Admission: 02/10/22 Date of Service: 02/10/22 Chief Complaint: Recent UTI Dx 2 weeks prior, worsening, failed outpatient abx therapy. HPI Narrative The patient is a 20 year old M w/ PMHx: Spina bifida w/ paraplegic immobility syndrome w/ chronic indwelling catheter following w/ Urologist at [facility] w/ history of nephrolithiasis w/ stents in the past, Chronic normocytic anemia/iron deficiency anemia, Chronic Systolic CHF, Hx Pericardial Effusion, Secondary Pulmonary HTN, SOPHIA, Morbid Obesity who presents to the [facility] ED on 02/10/22 with history of recent outpatient urinary tract infection treatment with onset of diarrhea reportedly treated with amoxicillin initially starting 2 weeks prior with initial improvement however worsened, transitioned recently to levofloxacin with 3 doses administered total however patient had worsening foul-smelling urine, subjective fevers, poor oral intake and loose stools with ongoing persistent urinary symptoms prompting ED evaluation. He has been taking pepto-bismol of note and also is on chronic iron and notes his stools are chronically dark appearing but have not been tarry or sticky in appearance. He does report that since his transition to levaquin his diarrhea has lessened. He notes that he did have a urine sample taken by a visiting nurse for culture to [facility], unfortunately he and his mother report that the sample was misplaced therefore there is no UCx from this recent UTI diagnosis. Work-up in the ED included T98.3, heart rate 105, BP 122/70, respiratory rate 18, 98% on room air, CBC with WC 17.8, hemoglobin 12.6, MCV 86.3, platelet 580 without differential performed, coags with PT 16.9, INR 1.4, PTT 35.3, BMP with potassium 5.4, chloride 114, carbon oxide 12, BUN/creatinine 86/3.58 with prior baseline creatinine noted 0.7-0.9, lactic acid 0.7, urinalysis concerning for urinary tract infection, blood culture x2 pending per ED, urine culture pending per ED, c-diff pending per the ED. patient allergies and unclear history of response to cephalosporins ED physician administered normal saline bolus 1 L x 1, maintenance IV fluids and gentamicin IV. [facility] Medical History (Updated 02/10/22 @ 21:[address] 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, stage 3 Right-sided heart failure Secondary pulmonary arterial hypertension Spina bifida Systolic CHF Umbilical hernia Home Medications spironolactone 25 mg tablet 25 mg PO DAILY 30 days #30 tabs 08/30/18 [History Last Taken Unknown] furosemide 40 mg tablet 40 mg PO DAILY 30 days #30 tabs 09/07/18 [History Last Taken Unknown] ferrous gluconate 240 mg (27 mg iron) tablet (Ferate) 27 mg PO BID 02/10/22 [History Last Taken Unknown] Allergy/AdvReac Type Severity Reaction Status Date / Time ampicillin Allergy rash Verified 11/16/19 07:43 fentanyl Allergy Rash Verified 11/16/19 07:43 latex Allergy Hives Verified 11/16/19 07:43 meropenem Allergy rash Verified 11/16/19 07:43 morphine Allergy Hives Verified 11/16/19 07:43 Family History (Updated 02/10/22 @ 21:[address] Maureen Ferguson MD) Grandfather Heart disease Father Hypertension Mother Hyperlipidemia Surgical History (Updated 02/10/22 @ 22:[address] Maureen Ferguson MD) History of back surgery History of foot surgery History of ventriculoperitoneal shunting S/P cutaneous-vesicostomy S/P ureteral stent placement Status post laser lithotripsy of ureteral calculus Social History (Updated 02/10/22 @ 21:[address] Maureen Ferguson MD) household members: family Smoking Status: Never smoker second hand exposure: Yes alcohol intake: never substance use type: does not use ROS ROS Narrative Admission Review of Systems: CONSTITUTIONAL: No weight loss, chills, + subjective fever, weakness or fatigue. HEENT: Eyes: No visual loss, blurred vision, double vision or yellow sclerae. Ears, Nose, Throat: No hearing loss, sneezing, congestion, runny nose or sore throat. SKIN: + chronic stasis/decub, intertrigo. CARDIOVASCULAR: + Edema. No chest pain, chest pressure or chest discomfort, palpitations, orthopnea, syncopal events. RESPIRATORY: No shortness of breath, cough or sputum, wheezing, hemoptysis. GASTROINTESTINAL: + anorexia, No nausea, vomiting or diarrhea, abdominal pain, melena, BRBPR. GENITOURINARY: + foul smelling urine, indwelling catheter. NEUROLOGICAL: + Spina bifida with chronic paraplegia. No headache, dizziness, syncope, change in bowel or bladder control, seizure. MUSCULOSKELETAL: No muscle, back pain, joint pain or stiffness. HEMATOLOGIC: + anemia, bleeding or bruising. LYMPHATICS: No enlarged nodes. No history of splenectomy. PSYCHIATRIC: No history of depression or anxiety. ENDOCRINOLOGIC: No reports of sweating, cold or heat intolerance. No polyuria or polydipsia. ALLERGIES: + history of hives. Vital Signs Vital Signs Vital Signs: 02/10/22 18:47 02/10/22 20:05 Temperature 97.9 F 98.3 F Temperature Source Temporal Oral Pulse Rate 107 H 105 H Respiratory Rate 19 H 18 Blood Pressure 120/74 122/78 H Blood Pressure Mean 89 92 Pulse Ox 97 98 Oxygen Delivery Method Room Air Room Air Weight Weight: 262 lb 2.074 oz Body Mass Index (BMI) 47.9 Physical Exam Narrative Physical Examination: General: Awake, alert, oriented x 3 and cooperative, seated upright in the ED bed, fatigued appearing, no acute distress. Skin: Normal color, normal turgor, no icterus, no cyanosis except for bilateral lower extremity venous stasis skin changes, intertrigo and folds, chronic stasis decubitus ulcers. HEENT: AT/NC, EOMI, PERRLA, dry, no carotid bruits or JVD noted; however, thickened neck makes evaluation difficult. Lungs: Diminished, distant, appropriate effort, no rales, ronchi or wheezing. Heart: Tachycardic with regular rhythm; no gallop, rub audible. Abdomen: Soft, morbidly obese, NTTP, no obvious distention but habitus makes evaluation difficult, distant normal bowel sounds, unable to discern HSM secondary to habitus, chronic catheter with purulent output. Extremities: No cyanosis, no clubbing, see skin, significant pedal to proximal juarez 3+ pitting edema which he notes is chronic. Neurological: Patient awake, alert, oriented as noted, cognitive function currently appears based intact, confirmed per mother; pupils equally reactive to light and accommodation, cranial nerves grossly normal, chronic significant deficits with paraplegia secondary to underlying spina bifida, strength severely global decreased secondary to acute presentation and underlying chronic comorbidities Psychiatric: Affect appears fatigued, no acute evidence of depressive or anxiety feelings. Results Lab / Micro Data Result Diagrams: 02/10/22 19:25 02/10/22 19:25 Labs: Laboratory Results - last 24 hr 02/10/22 19:25: WBC 17.8 H, RBC 4.89, Hgb 12.6 L, Hct 42.2, MCV 86.3, MCH 25.8 L, MCHC 29.9 L, RDW Std Deviation 54.7 H, RDW Coeff of Francisco 17.4 H, Plt Count 580 H, MPV 9.5 02/10/22 19:25: Sodium 138, Potassium 5.4 H, Chloride 114 H, Carbon Dioxide 12.0 L, Anion Gap 12, BUN 86 H, Creatinine 3.58 H, Estim Creat Clear Calc 23.72, Est GFR (MDRD) Af Amer 26 L, Est GFR (MDRD) Non-Af 22 L, BUN/Creatinine Ratio 24.0 H, Glucose 89, Calcium 8.3 L 02/10/22 19:25: Lactic Acid 0.7 02/10/22 20:18: Urine Color Brown, Urine Clarity Cloudy, Urine pH 8.0, Ur Specific [place] 1.015, Urine Protein 500 H, Urine Glucose (UA) Normal, Urine Ketones 5 H, Urine Occult Blood 250 H, Urine Nitrite Positive H, Urine Bilirubin Negative, Urine Urobilinogen Normal, Ur Leukocyte Esterase 500 H, Urine RBC > 100 SEEN, Urine WBC >100 SEEN, Ur Squamous Epith Cells 0 SEEN, Urine Bacteria 3+, Urine Mucus 0 SEEN 02/10/22 20:35: PT 16.9 H, INR 1.4, APTT 35.3 Rhythm Strip Rhythm Strip: Sinus Tach Rate: 105 Ectopy: None Assessment & Plan Assessment/Plan (1) Severe sepsis with acute organ dysfunction: (2) Complicated urinary tract infection: PLAN: Plan The patient is a 20 year old M w/ PMHx: Spina bifida w/ paraplegic immobility syndrome w/ chronic indwelling catheter following w/ Urologist at [facility] w/ history of nephrolithiasis w/ stents in the past, Chronic normocytic anemia/iron deficiency anemia, Chronic Systolic CHF, Hx Pericardial Effusion, Secondary Pulmonary HTN, SOPHIA, Morbid Obesity who presents to the [facility] ED on 02/10/22 with history of recent outpatient urinary tract infection treatment with onset of diarrhea reportedly treated with amoxicillin initially starting 2 weeks prior with initial improvement however worsened, transitioned recently to levofloxacin with 3 doses administered total however patient had worsening foul-smelling urine, subjective fevers, poor oral intake and loose stools with ongoing persistent urinary symptoms prompting ED evaluation. #1. Acute Sepsis secondary to Complicated UTI w/ Chronic Indwelling catheter/Chronic Vesicostomy (evidence of sepsis-induced organ dysfunction with leukocytosis, tachycardia, RUTH with source of infection): Will admit patient to the PCU, maintain on cardiac monitoring, continue judicious IVFs given cardiac history as noted, maintain on IV cefepime pending Cx as does not recall prior reaction to cephalosporins but could always transition to gentamycin if necessary (rash with other abx therapies as reaction), Bld Cx x 2 obtained in the ED, requested renal US and FeNa as noted. Pending sensitivity and speciation low threshold to involve infectious disease if necessary. Will have catheter changed. #2. Diarrhea, suspected secondary to Acute UTI as noted #1 and/or antibiotic associated: C-diff pending per ED, if negative will initiate antidiarrheal regimen, maintain on judicious hydration given CHF history. #3. Acute kidney injury: Secondary to GI losses, acute UTI as noted. Admission BUN/Cr 86/3.58, prior baseline creatinine noted to be 0.7-0.9, will continue judiciously hydrate given underlying CHF history, hold nephrotoxic medications and repeat chemistry in AM. Given significant elevation and history of nephrolithiasis will request renal US and FeNa assessment. #4. Hyperkalemia, mild: Admission potassium 5.4, does not mention any hemolysis evident, will continue hydration, repeat level in AM. #5. Chronic systolic CHF: Given acute kidney injury holding patient Lasix and spironolactone, from review of medications outpatient does not appear to be on a beta-ángel nor EDGAR inhibitor/ARB, given hematuria will defer aspirin therapy at this time, not on statin. 09/30/2018 echocardiogram with normal LV size, LV systolic function normal, EF 55%, moderate concentric LVH, no evidence of any pericardial effusion. #6. Chronic normocytic anemia/iron deficiency anemia: Admission hemoglobin 12.6, MCV 86.3, baseline from review of records appears most recently in 2019 10-12 range, stable, continue to trend. We will continue iron supplementation #7. Spina bifida w/ paraplegic: Patient w/ as noted chronic indwelling catheter, following w/ Urologist at [facility] w/ history of nephrolithiasis w/ stents. Frequent position changes. PT, OT consulted. #8. Chronic bilateral lower extremity edema: Patient frequently sleeps upright, from discussion eats extremely salty foods, discussed at length with mother and will place neck Edgar wraps however in the past she has been hesitant as she notes that they have been aggressively applied and wounds have resulted therefore discussed that these would frequently be assessed. #9. Morbid Obesity: Weight loss and lifestyle changes encouraged, nutrition consulted given per discussion extremely unhealthy eating habits. #10. Chronic pressure ulcers: Frequent position changes, barrier cream, wound RN consultation. #11. DVT prophylaxis: SCDs, given notable hematuria will defer chemoprophylaxis but once improving will add given risk Charges/Coding Visit Charges Inpatient E&M: 73805 Init Hosp L3
[2022-02-10 21:26] VITALS: BP 126/75; PULSE 102; RESP 16; TEMP 36.8; O2SAT 98
[2022-02-10] MEDS: 0.9% Normal Saline 1,000 ML 150 ML IV (21:55)
[2022-02-10 21:56] VITALS: BP 126/75; PULSE 102; RESP 16; TEMP 36.8; O2SAT 98
[2022-02-10 23:13] VITALS: BMI 46.7
[2022-02-10] MEDS: 0.9% Normal Saline 1,000 ML 125 ML IV (23:40)
[2022-02-10] MEDS: Menthol/Lanolin/Calamine/Znox 113 GM Tube 1 APPLIC TOPICAL (23:40)
[2022-02-10] MEDS: Nystatin Powder 15gm Bottle 1 APPLIC TOPICAL (23:40)
[2022-02-10 23:47] VITALS: BMI 46.7
[2022-02-10 23:50] VITALS: BP 114/79; PULSE 111; RESP 18; TEMP 36.6; O2SAT 98
[2022-02-11] VITALS (23 sets, daily range): BP systolic 105–130; BP diastolic 53–93; PULSE 102–126; RESP 16–36; TEMP 35.9–36.9; O2SAT 96–99
--- NOTE | 2022-02-11 00:08 | NURSING ---
When pt came from ed while transferring pt. his supra pubic cath got pulled out. Per father he said that we need to stock up because they fall out often. He said when pt was [facility] it got pulled out w balloon attached and ever since it falls out.
--- NOTE | 2022-02-11 00:21 | NURSING ---
Family now request cath be placed so he can get a good night sleep. 16f latex free cath placed in suprapubic
[2022-02-11 00:27] LABS: Creatinine, Urine (random) < 13.00 mg/dL (NO RANGE EST.); Urine Sodium 123 mmol/L (Not Establ.)
--- NOTE | 2022-02-11 04:16 | CPS ---
Pt brought in own Trilogy machine. machine was set up for use, He is currently on it.
[2022-02-11] MEDS: Nystatin Powder 15gm Bottle 1 APPLIC TOPICAL ×3 (05:00→21:51)
--- NOTE | 2022-02-11 05:55 | US_ITS ---
HISTORY: RUTH -- PATIENT HAS A HOLGUIN -- HX OF SPINA BIFIDA W/ SCRUGGS KAREN FIXATION -- HX OF KIDNEY STONES. TECHNIQUE: Shaw scale and color doppler images were obtained of the kidneys. 52 images. COMPARISON: CT 05/21/2017. FINDINGS: RIGHT KIDNEY: 17 cm in length with a cortical thickness of 1.7 cm. Moderate hydronephrosis. Multiple echogenic foci measuring 1 cm. LEFT KIDNEY: 16.5 cm in length with a cortical thickness of 1.7 cm. Moderate hydronephrosis. Multiple echogenic foci measuring 1 cm. URINARY BLADDER: Decompressed by Holguin catheter, limiting evaluation. US/Kidney and Bladder IMPRESSION: Enlarged bilateral kidneys with multiple renal calculi and moderate bilateral hydronephrosis. Electronically Signed: Jayne Nicolas MD at 8:16 EDT ,
[2022-02-11] MEDS: 0.9% Normal Saline 1,000 ML 125 ML IV (06:46)
[2022-02-11 06:54] LABS: Absolute Lymphocyte Count 2.01 X10^3/uL (0.83-4.51); Basophil# 0.09 X10^3/uL; Basophil% 0.5 % (0-1); Eosinophil# 0.09 X10^3/uL; Eosinophils% 0.5 % (0-5); Hematocrit 41.3 % (40-54); Hemoglobin 12.5 g/dL (13.0-16.5); Lymphocyte # 2.01 X10^3/ul (0.83-4.51); Lymphocyte % 11.2 % (19-41); Mean Corp Hgb Conc 30.3 g/dL (32-36); Mean Corpuscular Hgb 26.5 pg (27.0-32.0); Mean Corpuscular Volume 87.5 fL (80-94); Mean Platelet Vol. 9.4 fl (6.2-12.0); Monocyte% 7.8 % (0-10); NRBC Flagged by Analyzer 0 % (0-5); Neutrophil # 14.01 X10^3/uL (2.7-7.7); Neutrophil % 78.3 % (47-70); Platelet Count 526 K/mm3 (150-450); RBC Distribution Width CV 17.3 % (11.6-14.6); RBC Distribution Width SD 55.9 fl (35.1-43.9); Red Blood Count 4.72 M/mm3 (4.6-6.2); White Blood Count 17.9 K/mm3 (4.4-11.0)
[2022-02-11 07:48] LABS: ALB/GLOB Ratio 0.2 RATIO (0.9-2.4); AST(SGOT) 10 U/L (15-37); Alanine Aminotransfer ALT/SGPT 8 U/L (16-61); Albumin, Serum 1.4 g/dL (3.2-5.0); Alkaline Phosphatase 122 U/L (45-117); Anion Gap 15 (5-15); BUN 84 mg/dL (7-18); BUN/Creat Ratio 24.4 RATIO (10-20); Calcium,Total 7.9 mg/dL (8.5-10.1); Chloride 116 mmol/L (98-107); Creatinine, Serum 3.44 mg/dL (0.70-1.30); EST Glomerular Filtration Rate 23 mL/min (>60); Est Glom Filt Rate - Afr Amer 27 mL/min (>60); Estimated Creatinine Clearance 24.69 ml/min; Glucose 73 mg/dL (74-106); Potassium 5.4 mmol/L (3.5-5.1); Protein, Total 7.4 g/dL (6.4-8.2); Sodium Level 137 mmol/L (136-145)
--- NOTE | 2022-02-11 07:50 | PCM.PN.HOSP ---
Subjective Subjective Follow-up for sepsis most probably due to complicated UTI Patient has history of spina bifid complicated with paraplegia, suprapubic catheter and obstructive sleep apnea on Trelegy Objective Data Objective Data Vital Signs: Vital Signs Temp Pulse Resp BP Pulse Ox O2 Del Method 98 F 110 H 17 114/72 98 Room Air 02/11/22 05:06 02/11/22 06:50 02/11/22 05:06 02/11/22 05:06 02/11/22 05:06 02/11/22 05:08 Oxygen Delivery Method Room Air Weight: 255 lb 15.307 oz Body Mass Index (BMI) 46.7 Intake & Output: Intake and Output for Last 24 Hours 02/09/22 02/10/22 02/11/22 23:59 23:59 23:59 Intake Total 1253 / 1253 1047.5 / 1047.5 Output Total 2350 / 2350 Balance 1253 / -797 -1302.5 / -1302.5 Lab / Micro Data Result Diagrams: 02/11/22 06:48 02/11/22 06:48 Labs: Laboratory Results - last 24 hr 02/10/22 19:25: WBC 17.8 H, RBC 4.89, Hgb 12.6 L, Hct 42.2, MCV 86.3, MCH 25.8 L, MCHC 29.9 L, RDW Std Deviation 54.7 H, RDW Coeff of Francisco 17.4 H, Plt Count 580 H, MPV 9.5 02/10/22 19:25: Sodium 138, Potassium 5.4 H, Chloride 114 H, Carbon Dioxide 12.0 L, Anion Gap 12, BUN 86 H, Creatinine 3.58 H, Estim Creat Clear Calc 23.72, Est GFR (MDRD) Af Amer 26 L, Est GFR (MDRD) Non-Af 22 L, BUN/Creatinine Ratio 24.0 H, Glucose 89, Calcium 8.3 L 02/10/22 19:25: Lactic Acid 0.7 02/10/22 20:18: Urine Color Brown, Urine Clarity Cloudy, Urine pH 8.0, Ur Specific [place] 1.015, Urine Protein 500 H, Urine Glucose (UA) Normal, Urine Ketones 5 H, Urine Occult Blood 250 H, Urine Nitrite Positive H, Urine Bilirubin Negative, Urine Urobilinogen Normal, Ur Leukocyte Esterase 500 H, Urine RBC > 100 SEEN, Urine WBC >100 SEEN, Ur Squamous Epith Cells 0 SEEN, Urine Bacteria 3+, Urine Mucus 0 SEEN 02/10/22 20:18: Ur Random Sodium 123, Urine Creatinine < 13.00 02/10/22 20:35: PT 16.9 H, INR 1.4, APTT 35.3 02/11/22 06:48: WBC 17.9 H, RBC 4.72, Hgb 12.5 L, Hct 41.3, MCV 87.5, MCH 26.5 L, MCHC 30.3 L, RDW Std Deviation 55.9 H, RDW Coeff of Francisco 17.3 H, Plt Count 526 H, MPV 9.4, Immature Gran % (Auto) 1.700 H, Neut % (Auto) 78.3 H, Lymph % (Auto) 11.2 L, [place] % (Auto) 7.8, Eos % (Auto) 0.5, Baso % (Auto) 0.5, Absolute Neuts (auto) 14.0 H, Absolute Lymphs (auto) 2.01, Nucleated RBC % 0 02/11/22 06:48: Sodium 137, Potassium 5.4 H, Chloride 116 H, Carbon Dioxide 6.0 L*, Anion Gap 15, BUN 84 H, Creatinine 3.44 H, Estim Creat Clear Calc 24.69, Est GFR (MDRD) Af Amer 27 L, Est GFR (MDRD) Non-Af 23 L, BUN/Creatinine Ratio 24.4 H, Glucose 73 L, Calcium 7.9 L, Total Bilirubin 0.20, AST 10 L, ALT 8 L, Alkaline Phosphatase 122 H, Total Protein 7.4, Albumin 1.4 L, Globulin 6.0 H, Albumin/Globulin Ratio 0.2 L Micro: Microbiology 02/10/22 19:45 Stool C. difficile DNA Amplification - Final Rhythm Strip Rhythm Strip: Sinus Tach Rate: 105 Ectopy: None Physical Exam Narrative Seen and examined on the floor in the morning and afternoon Physical General: Alert, Oriented x3, Cooperative, morbid obesity BMI 46.8 kg per metered square mainly truncal obesity HEENT: Atraumatic, PERRLA, EOMI, Normocephalic Oral: No Gingival or Mucosal Lesions/ Ulcerations Neck: Supple, No JVD, Negative Carotid Bruits Lungs: Air entry diminished in bilateral lung bases. No crepitation/rhonchi Cardiovascular: Sinus tachycardia, Normal S1, Normal S2, No murmurs Abdomen: Bowel Sounds Present, Soft, Non Tender, Non-Distended : Could not inspect lower abdomen/pelvis/perineum due to body habitus/contracture of lower extremities. Extremities: Mild pedal edema. Edgar wrap bandage. Capillary Refill Less than 3 Seconds Skin: Multiple surgical scar in the back. Musculoskeletal: Paraplegia. Contracture of lower extremities. No Tenderness to Palpation of Joints or Extremities Neurological: Spina bifid probably at lower thoracic level. Paraplegia, contracture. Suprapubic catheter. Psych/Mental Status: Flat affect. Assessment & Plan Assessment/Plan (1) Severe sepsis with acute organ dysfunction: (2) Complicated urinary tract infection: PLAN: Plan The patient is a 20 year old M with history of spina bifida complicated with paraplegia, chronic indwelling catheter, multiple surgeries/rods in his spine was admitted after outpatient failure of antibiotic. It was treated with amoxicillin initiated about 2 weeks and was changed to Levaquin due to diarrhea. He had 3 dosages of Levaquin prior to admission. Patient admitted with fever poor oral intake loose stool and foul-smelling urine. #1. Sepsis due to complicated UTI: Patient is being admitted in the PCU. The patient presented with sepsis due to complicated UTI/genitourinary infection with acute sepsis-related organ dysfunction as evidenced by RUTH, acute hypercarbic respiratory/ventilatory failure that required trilogy ventilator on AVAPS. Portable chest x-ray stat was done and is of poor quality/limited visualization. Lung exams reveal clear breath sounds. ABG 7.1 11/25/ on 21% FiO2/AVAPS, TV 500 mL. BMP shows acute decrease in CO2 of 6 from 12 with anion gap 15 suggestive of with metabolic acidosis compensated respiratory alkalosis. Patient is empirically started on IV cefepime. Cultures were obtained and pending. Ultrasound kidney shows multiple bilateral renal colliculi with bilateral hydronephrosis and enlarged kidneys. ID consulted and requested urology consult. #2. Acute respiratory failure secondary to respiratory muscle fatigue from metabolic acidosis probably related to diarrhea, complicated with sepsis. Patient on AVAPS through trilogy ventilator. Stool for C. difficile PCR negative. Discontinue IV fluid. #3. Acute kidney injury, prerenal due to diarrhea with concern, prolonged ischemia leading to ATN: Admission BUN/Cr 86/3.58, prior baseline creatinine noted to be 0.7-0.9. Patient was on IV fluid on 125 mill per hour but will stop it as patient respiratory distress. #4. Hyperkalemia, mild: Admission potassium 5.4, monitor potassium. #5. Chronic diastolic/HFpEF : Given acute kidney injury holding patient Lasix and spironolactone, from review of medications outpatient does not appear to be on a beta-ángel nor EDGAR inhibitor/ARB. Given hematuria, does not need aspirin. 09/30/2018 echocardiogram with normal LV size, LV systolic function normal, EF 55%, moderate concentric LVH, no evidence of any pericardial effusion. #6. Chronic normocytic anemia/iron deficiency anemia: Admission hemoglobin 12.6, MCV 86.3, baseline from review of records appears most recently in 2018 10-12 range, stable, continue to trend. We will continue iron supplementation #7. Spina bifida w/ paraplegic: Patient with chronic indwelling catheter, being followed by urologist at [facility] w/ history of nephrolithiasis w/ stents. Frequent position changes. PT, OT consulted. As per nursing staff, nurse at the night. Suprapubic catheter. Urologist is consulted. #8. Chronic bilateral lower extremity edema: Patient frequently sleeps upright, from discussion eats extremely salty foods, discussed at length with mother and will place neck Edgar wraps however in the past she has been hesitant as she notes that they have been aggressively applied and wounds have resulted therefore discussed that these would frequently be assessed. #9. Morbid Obesity: Weight loss and lifestyle changes encouraged, nutrition consulted given per discussion extremely unhealthy eating habits. #10. Chronic pressure ulcers: Frequent position changes, barrier cream, wound RN consultation. #11. DVT prophylaxis: SCDs, given notable hematuria will defer chemoprophylaxis but once improving will add given risk Total time of the visit including total time spent in counseling or coordination of care, (more than 50% of the total time, spent in obtaining medical information from nurses and other ancillary care providers,explaining to the patient about labs, imaging, diagnosis and management of active complex medical conditions), , review of labs and imaging is 40 minutes. Total time of the visit including total time spent in counseling or coordination of care, (more than 50% of the total time, spent in obtaining medical information from nurses and other ancillary care providers,explaining to the patient about labs, imaging, diagnosis and management of active complex medical conditions), discussion with drapery sewer hand, ID and urologist, review of labs and imaging is 40 minutes. Clinical Impression(s) from Imaging Studies Renal Ultrasound 02/11/22 05:55 IMPRESSION: Enlarged bilateral kidneys with multiple renal calculi and moderate bilateral hydronephrosis. Microbiology Past 72 Hours 02/10/22 19:45 Stool C. difficile DNA Amplification - Final Laboratory Results 02/10/22 19:25: WBC 17.8 H, RBC 4.89, Hgb 12.6 L, Hct 42.2, MCV 86.3, MCH 25.8 L, MCHC 29.9 L, RDW Std Deviation 54.7 H, RDW Coeff of Francisco 17.4 H, Plt Count 580 H, MPV 9.5 02/10/22 19:25: Sodium 138, Potassium 5.4 H, Chloride 114 H, Carbon Dioxide 12.0 L, Anion Gap 12, BUN 86 H, Creatinine 3.58 H, Estim Creat Clear Calc 23.72, Est GFR (MDRD) Af Amer 26 L, Est GFR (MDRD) Non-Af 22 L, BUN/Creatinine Ratio 24.0 H, Glucose 89, Calcium 8.3 L 02/10/22 19:25: Lactic Acid 0.7 02/10/22 20:18: Urine Color Brown, Urine Clarity Cloudy, Urine pH 8.0, Ur Specific [place] 1.015, Urine Protein 500 H, Urine Glucose (UA) Normal, Urine Ketones 5 H, Urine Occult Blood 250 H, Urine Nitrite Positive H, Urine Bilirubin Negative, Urine Urobilinogen Normal, Ur Leukocyte Esterase 500 H, Urine RBC > 100 SEEN, Urine WBC >100 SEEN, Ur Squamous Epith Cells 0 SEEN, Urine Bacteria 3+, Urine Mucus 0 SEEN 02/10/22 20:18: Ur Random Sodium 123, Urine Creatinine < 13.00 02/10/22 20:35: PT 16.9 H, INR 1.4, APTT 35.3 02/11/22 06:48: WBC 17.9 H, RBC 4.72, Hgb 12.5 L, Hct 41.3, MCV 87.5, MCH 26.5 L, MCHC 30.3 L, RDW Std Deviation 55.9 H, RDW Coeff of Francisco 17.3 H, Plt Count 526 H, MPV 9.4, Immature Gran % (Auto) 1.700 H, Neut % (Auto) 78.3 H, Lymph % (Auto) 11.2 L, [place] % (Auto) 7.8, Eos % (Auto) 0.5, Baso % (Auto) 0.5, Absolute Neuts (auto) 14.0 H, Absolute Lymphs (auto) 2.01, Nucleated RBC % 0 02/11/22 06:48: Sodium 137, Potassium 5.4 H, Chloride 116 H, Carbon Dioxide 6.0 L*, Anion Gap 15, BUN 84 H, Creatinine 3.44 H, Estim Creat Clear Calc 24.69, Est GFR (MDRD) Af Amer 27 L, Est GFR (MDRD) Non-Af 23 L, BUN/Creatinine Ratio 24.4 H, Glucose 73 L, Calcium 7.9 L, Total Bilirubin 0.20, AST 10 L, ALT 8 L, Alkaline Phosphatase 122 H, Total Protein 7.4, Albumin 1.4 L, Globulin 6.0 H, Albumin/Globulin Ratio 0.2 L Sepsis Attestation Sepsis Alert: Yes Sepsis Attestation: Agree w/Sepsis Date exam was performed: 02/11/22 Time exam was performed: 08:00 Possible Source of Sepsis: Genitourinary Supportive Findings: The patient presented with sepsis due to complicated UTI with bilateral renal calculi and bilateral hydronephrosis and with acute sepsis-related organ dysfunction as evidenced by acute hypocarbic respiratory failure/ventilatory failure, metabolic acidosis and RUTH. Charges/Coding Visit Charges Inpatient E&M: 60447 Subs Hosp L3
[2022-02-11] MEDS: Menthol/Lanolin/Calamine/Znox 113 GM Tube 1 APPLIC TOPICAL ×3 (09:07→21:51)
[2022-02-11] MEDS: Ferrous Gluconate 324 MG Tablet 325 MG PO (09:07)
--- NOTE | 2022-02-11 11:45 | CASEMGMT ---
NATHALIA PETERSON FLOUR DISTRIBUTOR KRISTEN to room to meet with patient for initial transition planning/care coordination assessment. NATHALIA PETERSON introduced self and role at [facility]. Pt voices understanding and consents to assessment at this time. Pt resting in bed in no distress at this time. Father, Victor M, @ bedside. Pt agreeable to him being present during assessment. Pt is A/O at this time and answers all questions appropriately. Father provided a lot of the information as well. Care providers, pharmacy, and demographics verified/updated at this time. PCP: Dr Romero Specialists: Pt was seeing urologist @ [facility] but no longer going there. An states he has an appt w/Dr Anderson @ [facility]/urology on 02/19, but he would like him to switch to local urologist. Pt/father provided w/list of local physicians. Pt also sees Dr Holman-cardiology. Preferred Pharmacy: [facility] Retail Insurance: [employer], [employer] Medical Prescription Benefit: Yes Living Will/HPOA: Father states pt completed HPOA @ [facility] in the past but they do not have copy of it. Pt/father made aware, if pt would like to, he can complete new/updated POA paperwork while @ [facility]. Pt states he would like to do that. Danielle VENTURA, made aware. LNOK: Parents, Victor M and Maida. Living Arrangements: Lives in handicap accessible home w/ramp entrance w/parents and 2 siblings. Parents help to take care of pt. Transportation: Parents. DME: States has the following DME: ceiling track/transfer/lift system, hospital bed w/pressure relieving mattress. Father states top half of mattress is not inflating properly and he is not sure what DME co they originally got the mattress from. He states he thought it was from [facility], but he has contacted them and they informed him it was not from them. NATHALIA PETERSON advised him to f/u w/insurance co for this info. Pt also has a Trilogy unit from [employer], a pulse ox, power w/c, and lift chair. Pt does not have a medical alert button. Father interested in info. Provided by CM at this time. He states no need for further DME at this time. HHC/SNF: No hx of SNF. Has had [facility] in the past. Active w/[facility]: SN only. Pt and father wish for pt to return home w/HHC. Father states would be interested in list of other HHC agencies. A list of HHC providers including quality and resource use data and consistent with the patient?s preferred geographic region, medical needs, and insurance network were provided from the [employer] Guide. RN KRISTEN instructed father and pt to inform CM if they wish to resume services w/[facility] or if they would like referral sent to a different provider. They voice understanding. CM to follow for any further discharge planning/needs. Pt and father voice no further concerns/needs at this time. Advised them to ask for CM if any further questions/concerns/needs arise. Voices understanding. PLAN: Home w/HHC, family support and discharge plans in place. Pt may need new script for suprapubic catheter supplies and for pressure relieving mattress. CM to follow. Darnell CORONA RN CM
--- NOTE | 2022-02-11 13:26 | CON.PCM.ID_ITS ---
Assessment & Plan Assessment/Plan (1) Severe sepsis with acute organ dysfunction: PLAN: Complicated by RUTH. Imaging shows bilateral renal stones and hydro. Will consult urology. Cont cefepime. Would avoid further aminoglycosides given his RUTH. Will also consult wound care for eval. Will follow, thank you (2) Paraplegia: (3) Complicated urinary tract infection: HPI Consult Data Date of Consult: 02/11/22 HPI Narrative Reason for Consultation: sepsis HPI Narrative: OKSANA DAMIAN, is a 26 M with paraplegia due to spina bifida, presented with 2 weeks of fever, foul smelling urine. Had been on po abx (reportedly amox then levaquin) with improvement but then sx returned within 4 days. Ucx was not able to be collected. Due to worsening, sent to ED, given gent, admitted on cefepime. Feeling a little better, no abd pain, no flank pain. Full ROS performed and neg except as noted above. 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, stage 3 Right-sided heart failure Secondary pulmonary arterial hypertension Spina bifida Systolic CHF Umbilical hernia Home Medications spironolactone 25 mg tablet 25 mg PO DAILY water pill 30 days #30 tabs 08/30/18 [History Last Taken 02/08/22] furosemide 40 mg tablet 40 mg PO DAILY water pill 30 days #30 tabs 09/07/18 [History Last Taken 02/08/22] ferrous gluconate 240 mg (27 mg iron) tablet (Ferate) 27 mg PO BID iron 02/10/22 [History Last Taken 02/08/22] Allergy/AdvReac Type Severity Reaction Status Date / Time ampicillin Allergy rash Verified 02/10/22 23:55 fentanyl Allergy Rash Verified 02/10/22 23:55 latex Allergy Hives Verified 02/10/22 23:55 meropenem Allergy rash Verified 02/10/22 23:55 morphine Allergy Hives Verified 02/10/22 23:55 Family History (Updated 02/10/22 @ 21:[address] Maureen Ferguson MD) Grandfather Heart disease Father Hypertension Mother Hyperlipidemia Surgical History (Updated 02/10/22 @ 22:[address] Maureen Ferguson MD) History of back surgery History of foot surgery History of ventriculoperitoneal shunting S/P cutaneous-vesicostomy S/P ureteral stent placement Status post laser lithotripsy of ureteral calculus Social History (Updated 02/10/22 @ 21:[address] Maureen Ferguson MD) household members: family Smoking Status: Never smoker second hand exposure: Yes alcohol intake: never substance use type: does not use Physical Exam Const alert and no apparent distress General Appearance: cooperative HEENT head/scalp atraumatic Eyes PERRL and EOMs intact bilaterally Neck supple and No nodes Resp clear to auscultation bilaterally Auscultation: diminished lung sounds Cardio Rate: tachycardic GI soft to palpation, non-tender and non-distended GI Narrative: catheter in place Extremity General Extremity: edema Skin Skin Narrative: unable to visualize pelvic wound. Neuro CN's II-XII intact bilaterally Lab / Micro Data Attestation: I reviewed the patient's lab results. Result Diagrams: 02/11/22 06:48 02/11/22 06:48 Labs: Laboratory Results - last 24 hr 02/10/22 19:25: WBC 17.8 H, RBC 4.89, Hgb 12.6 L, Hct 42.2, MCV 86.3, MCH 25.8 L , MCHC 29.9 L, RDW Std Deviation 54.7 H, RDW Coeff of Francisco 17.4 H, Plt Count 580 H, MPV 9.5 02/10/22 19:25: Sodium 138, Potassium 5.4 H, Chloride 114 H, Carbon Dioxide 12.0 L, Anion Gap 12, BUN 86 H, Creatinine 3.58 H, Estim Creat Clear Calc 23.72, Est GFR (MDRD) Af Amer 26 L, Est GFR (MDRD) Non-Af 22 L, BUN/Creatinine Ratio 24.0 H , Glucose 89, Calcium 8.3 L 02/10/22 19:25: Lactic Acid 0.7 02/10/22 20:18: Urine Color Brown, Urine Clarity Cloudy, Urine pH 8.0, Ur Specific [place] 1.015, Urine Protein 500 H, Urine Glucose (UA) Normal, Urine Ketones 5 H, Urine Occult Blood 250 H, Urine Nitrite Positive H, Urine Bilirubin Negative, Urine Urobilinogen Normal, Ur Leukocyte Esterase 500 H, Urine RBC > 100 SEEN, Urine WBC >100 SEEN, Ur Squamous Epith Cells 0 SEEN, Urine Bacteria 3+, Urine Mucus 0 SEEN 02/10/22 20:18: Ur Random Sodium 123, Urine Creatinine < 13.00 02/10/22 20:35: PT 16.9 H, INR 1.4, APTT 35.3 02/11/22 06:48: WBC 17.9 H, RBC 4.72, Hgb 12.5 L, Hct 41.3, MCV 87.5, MCH 26.5 L , MCHC 30.3 L, RDW Std Deviation 55.9 H, RDW Coeff of Francisco 17.3 H, Plt Count 526 H, MPV 9.4, Immature Gran % (Auto) 1.700 H, Neut % (Auto) 78.3 H, Lymph % (Auto) 11.2 L, [place] % (Auto) 7.8, Eos % (Auto) 0.5, Baso % (Auto) 0.5, Absolute Neuts (auto) 14.0 H, Absolute Lymphs (auto) 2.01, Nucleated RBC % 0 02/11/22 06:48: Sodium 137, Potassium 5.4 H, Chloride 116 H, Carbon Dioxide 6.0 L*, Anion Gap 15, BUN 84 H, Creatinine 3.44 H, Estim Creat Clear Calc 24.69, Est GFR (MDRD) Af Amer 27 L, Est GFR (MDRD) Non-Af 23 L, BUN/Creatinine Ratio 24.4 H , Glucose 73 L, Calcium 7.9 L, Total Bilirubin 0.20, AST 10 L, ALT 8 L, Alkaline Phosphatase 122 H, Total Protein 7.4, Albumin 1.4 L, Globulin 6.0 H, Albumin/Globulin Ratio 0.2 L Micro: Microbiology 02/10/22 19:45 Stool C. difficile DNA Amplification - Final Rhythm Strip Rhythm Strip: Sinus Tach Rate: 105 Ectopy: None Radiology Impression Renal Ultrasound 02/11/22 05:55 IMPRESSION: Enlarged bilateral kidneys with multiple renal calculi and moderate bilateral hydronephrosis. Electronically Signed: Jayne Nicolas MD at 8:16 EDT Reading Location ID and State: [facility] / [place] Tel , Service support ,
--- NOTE | 2022-02-11 13:32 | RAD_ITS ---
STUDY: X-RAY CHEST REASON FOR EXAM: Male, 26 years old. SOB, Resp failure TECHNIQUE: AP and lateral views of the chest. Limited study due to the patient''s condition. COMPARISON: Comparison is made with prior study dated 02/05/2011. FINDINGS: A right-sided ventriculoperitoneal shunt tube is in situ. Limited expansion of the lungs. No definite infiltrate is seen. There is no demonstrated pleural abnormality. Normal size heart. Normal mediastinum and akira. Normal visualized pulmonary arteries. Normal visualized aortic arch and descending thoracic aorta. Status post thin dl fixation of the thoracic and upper lumbar spine. Levoscoliosis. Normal visualized ribs, clavicles, and shoulders. There is no demonstrated abnormality of the visualized soft tissue structures of the upper abdomen. RAD/Chest 1 View (Portable) IMPRESSION: Limited examination. Limited inspiratory effort. No definite infiltrate is seen. Electronically Signed: Jesus Alberto Munoz MD at 14:41 EDT ,
[2022-02-11 13:46] LABS: Allen Test Positive; Base Excess -19 mmol/L (-2 to +2); Bicarbonate 9.5 mmol/L (22-26); Blood Gas Specimen Type ART; FI02 21; Mode avaps; O2 Delivery Device BiPAP; PO2 104 mmHG (75-100); SITE R Radial; SO2 96 % (95-99); Total Carbon Dioxide 10 mmol/L; Vt 500; pH 7.17 (7.35-7.45)
--- NOTE | 2022-02-11 14:20 | CHAPLAIN ---
Type of Pastoral Visit _x__ Initial Visit ___ Follow-up Visit ___ On-call Visit ___ General Patient Visit ___ Spiritual Assessment ___ Family Conference ___ Bereavement ___ Rapid Response ___ Code Blue ___ Other (describe below) Pastoral Care Referral From ___ Patient _x__ Family ___ Nurse ___ Physician ___ Group Fitness Instructor ___ Product Management Consultant ___ Other (describe below) Sacrament/Intervention _x__ Active listening ___ Anointing ___ Cheondoism ___ Bereavement ___ Communion ___ Ashley exploration ___ ___ Life review _x__ Prayer ___ Reconciliation ___ Sacrament of Sick _x__ Supportive presence ___ Wedding ___ Other (describe below) Pastoral Comments patient is awake but on bi-pap machine; father of pt is in the room and speaks for the pt; pt does acknowledge presence and support of this felt cementer; father requests prayers as he describes the condition and needs of the pt; pt welcomes prayer; offer of ongoing support given as they desire
--- NOTE | 2022-02-11 15:12 | EX.PCM.CONCC ---
Assessment & Plan Assessment/Plan (1) Complicated urinary tract infection: (2) Severe sepsis with acute organ dysfunction: (3) Chronic systolic (congestive) heart failure: (4) Secondary pulmonary arterial hypertension: PLAN: Plan RECOMMENDATIONS: 1. Continue cefepime pending culture results 2. Continue AVAPS until tomorrow morning with only short breaks as necessary 3. Monitor closely for hypotension. Cannot exclude need for central line and pressors 4. Obtain ABG as needed for decreased mental status 5. Wean oxygen as tolerated to keep saturations between 90 and 94% 6. Await urology recommendations 7. Confirmed full CODE STATUS IMPRESSIONS: 1. Sepsis secondary to complicated UTI Patient with evidence of endorgan damage with acute kidney injury and respiratory failure requiring AVAPS rescue. Patient with significant acidosis leading to tachypnea and respiratory muscle fatigue. Continue with antibiotics for now. Anticipate improved respiratory status as sepsis improves. Cannot exclude the need for pressors moving forward. Given patient's respiratory status, fluids must be given cautiously if at all. Patient appears to be oxygenating well. 2. Acute respiratory failure secondary to respiratory muscle fatigue Patient with significant metabolic acidosis and attempts at respiratory compensation have required continuous AVAPS rescue. Cannot exclude the need for intubation, but patient appears to be tolerating acidosis at this time. This could improve with antibiotic treatment and time. If patient starts to become more somnolent, repeat ABG would be indicated. If patient starts to develop a respiratory acidosis, intubation would be required. 3. Acute kidney injury Patient with baseline creatinine of approximately 0.8 and presents with a creatinine of 3.58. Nephrotoxic medications have been held. Patient does have a history of nephrolithiasis and urology has been consulted. Exam is significantly limited given abdominal obesity. No indication for acute [employer]. Hyperkalemia likely secondary to acidosis. 4. Chronic normocytic anemia/chronic systolic CHF/spina bifida with paraplegia/lymphedema/morbid obesity/pressure ulcers Complicates care, management, recovery and prognosis. Clinical suspicion for controlled congestive heart failure at this time. Cannot exclude the development of worsening congestive heart failure with additional fluid boluses. Wound nurse has been consulted. HPI Consult Data Date of Consult: 02/11/22 HPI Narrative Reason for Consultation: Respiratory failure HPI Narrative: OKSANA DAMIAN is a 26 M, with past medical history listed below, who presents to [facility] on 02/10/2022 secondary to recurrent urinary tract infection with failure of outpatient therapy. Patient reportedly has been on amoxicillin for 2 weeks and Levaquin just recently. Patient does have a history of quadriplegia secondary to spina bifida and recurrent urinary tract infections with a suprapubic catheter. Patient had denied any respiratory symptoms, but continued to have foul-smelling urine. Patient is taking Pepto-Bismol regularly and states she has black stools. In the ER, patient was afebrile, tachycardic and normotensive. Patient was tolerating room air. Laboratory data showed a white blood cell count of 17.8, hemoglobin 12.6 and platelets of 580. Chemistries showed an elevated potassium level of 5.4, BUN of 86 and creatinine of 3.58. Lactic acid was within normal limits, along with coagulation studies. UA was highly suggestive of a UTI. Patient was given 1 L of normal saline and gentamicin. Patient was not given 30 cc/kg of fluids secondary to a history of heart failure. Patient was transferred to the PCU for further evaluation On the floor, patient was transitioned to cefepime therapy for coverage. Through the day today, patient was noted to have increasing tachypnea and requiring AVAPS [id number] to maintain saturations. There was some concern for worsening respiratory status, so a chest x-ray and ABG was obtained. Given the patient had only partially compensated metabolic acidosis, pulmonary/critical care was consulted for further evaluation. Patient was evaluated by myself in the PCU. Patient was comfortable on AVAPS and outside tachypnea stated that he felt improved. Patient has no sensation in his pelvis. Patient does have a suprapubic catheter and has dealt with this before. Patient reportedly has required intubation in the past when the lungs could not keep up. Patient's father is at the bedside and able to confirm reported history. The patient was transferred to the intensive care unit for further evaluation. Review of the medical record shows patient has grown Klebsiella, Aerococcus and Enterococcus with no signs of MDRO. Review of systems otherwise negative from a constitutional, HEENT, respiratory, cardiovascular, GI, genitourinary, musculoskeletal, skin, neurologic, psychiatric and hematologic system unless stated above. 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, stage 3 Right-sided heart failure Secondary pulmonary arterial hypertension Spina bifida Systolic CHF Umbilical hernia Home Medications spironolactone 25 mg tablet 25 mg PO DAILY water pill 30 days #30 tabs 08/30/18 [History Last Taken 02/08/22] furosemide 40 mg tablet 40 mg PO DAILY water pill 30 days #30 tabs 09/07/18 [History Last Taken 02/08/22] ferrous gluconate 240 mg (27 mg iron) tablet (Ferate) 27 mg PO BID iron 02/10/22 [History Last Taken 02/08/22] Allergy/AdvReac Type Severity Reaction Status Date / Time ampicillin Allergy rash Verified 02/10/22 23:55 fentanyl Allergy Rash Verified 02/10/22 23:55 latex Allergy Hives Verified 02/10/22 23:55 meropenem Allergy rash Verified 02/10/22 23:55 morphine Allergy Hives Verified 02/10/22 23:55 Family History Grandfather Heart disease Father Hypertension Mother Hyperlipidemia Surgical History History of back surgery History of foot surgery History of ventriculoperitoneal shunting S/P cutaneous-vesicostomy S/P ureteral stent placement Status post laser lithotripsy of ureteral calculus Social History household members: family Smoking Status: Never smoker second hand exposure: Yes alcohol intake: never substance use type: does not use ROS ROS Narrative See HPI Physical Exam Const alert, oriented x3 and no apparent distress Constitutional Narrative: On AVAPS and my evaluation General Appearance: in distress Positive for respiratory HEENT normocephalic and head/scalp atraumatic Eyes PERRL and EOMs intact bilaterally Neck supple and No nodes Resp clear to auscultation bilaterally Auscultation: diminished lung sounds; Negative for rales, rhonchi or wheezes Cardio S1 normal heart sound, S2 normal heart sound, no murmurs, no rub and no gallops Rate: tachycardic GI soft to palpation, non-tender and non-distended GI Narrative: Appears to have suprapubic catheter. Significant abdominal obesity limits exam Extremity General Extremity: edema Skin Skin Narrative: unable to visualize pelvic wound. Neuro oriented x3 and CN's II-XII intact bilaterally Neuro Narrative: Paraplegia with atrophy noted Psych cooperative and affect normal Medical Records Data Attestation: I reviewed the patient's medical records (Multiple cultures were reviewed. Results in HPI) Lab / Micro Data Attestation: I reviewed the patient's lab results. Result Diagrams: 02/11/22 06:48 02/11/22 06:48 Labs: Laboratory Results - last 24 hr 02/10/22 19:25: WBC 17.8 H, RBC 4.89, Hgb 12.6 L, Hct 42.2, MCV 86.3, MCH 25.8 L, MCHC 29.9 L, RDW Std Deviation 54.7 H, RDW Coeff of [place] 17.4 H, Plt Count 580 H, MPV 9.5 02/10/22 19:25: Sodium 138, Potassium 5.4 H, Chloride 114 H, Carbon Dioxide 12.0 L, Anion Gap 12, BUN 86 H, Creatinine 3.58 H, Estim Creat Clear Calc 23.72, Est GFR (MDRD) Af Amer 26 L, Est GFR (MDRD) Non-Af 22 L, BUN/Creatinine Ratio 24.0 H, Glucose 89, Calcium 8.3 L 02/10/22 19:25: Lactic Acid 0.7 02/10/22 20:18: Urine Color Brown, Urine Clarity Cloudy, Urine pH 8.0, Ur Specific [place] 1.015, Urine Protein 500 H, Urine Glucose (UA) Normal, Urine Ketones 5 H, Urine Occult Blood 250 H, Urine Nitrite Positive H, Urine Bilirubin Negative, Urine Urobilinogen Normal, Ur Leukocyte Esterase 500 H, Urine RBC > 100 SEEN, Urine WBC >100 SEEN, Ur Squamous Epith Cells 0 SEEN, Urine Bacteria 3+, Urine Mucus 0 SEEN 02/10/22 20:18: Ur Random Sodium 123, Urine Creatinine < 13.00 02/10/22 20:35: PT 16.9 H, INR 1.4, APTT 35.3 02/11/22 06:48: WBC 17.9 H, RBC 4.72, Hgb 12.5 L, Hct 41.3, MCV 87.5, MCH 26.5 L, MCHC 30.3 L, RDW Std Deviation 55.9 H, RDW Coeff of [place] 17.3 H, Plt Count 526 H, MPV 9.4, Immature Gran % (Auto) 1.700 H, Neut % (Auto) 78.3 H, Lymph % (Auto) 11.2 L, [place] % (Auto) 7.8, Eos % (Auto) 0.5, Baso % (Auto) 0.5, Absolute Neuts (auto) 14.0 H, Absolute Lymphs (auto) 2.01, Nucleated RBC % 0 02/11/22 06:48: Sodium 137, Potassium 5.4 H, Chloride 116 H, Carbon Dioxide 6.0 L*, Anion Gap 15, BUN 84 H, Creatinine 3.44 H, Estim Creat Clear Calc 24.69, Est GFR (MDRD) Af Amer 27 L, Est GFR (MDRD) Non-Af 23 L, BUN/Creatinine Ratio 24.4 H, Glucose 73 L, Calcium 7.9 L, Total Bilirubin 0.20, AST 10 L, ALT 8 L, Alkaline Phosphatase 122 H, Total Protein 7.4, Albumin 1.4 L, Globulin 6.0 H, Albumin/Globulin Ratio 0.2 L Micro: Microbiology 02/10/22 19:45 Stool C. difficile DNA Amplification - Final ABG Data ABG results: ABG 02/11/22 13:38 Specimen Type ART Sample Site R Radial pH 7.17 L* Bicarbonate Actual 9.5 L Total CO2 10 Base Excess -19 L O2 Saturation 96 O2 % 21 ABG pCO2 26.0 L ABG pO2 104 H Valdemar Test Positive O2 Delivery Device BiPAP Vent Mode avaps Tidal Volume 500 Crit Call To/Read Back Yes Blood Gas Notified Whom dimitri Attestation: I personally reviewed and interpreted this ABG as follows: (Partially compensated acute metabolic acidosis) Rhythm Strip Rhythm Strip: Sinus Tach Rate: 105 Ectopy: None Radiology Impression Renal Ultrasound 02/11/22 05:55 IMPRESSION: Enlarged bilateral kidneys with multiple renal calculi and moderate bilateral hydronephrosis. Electronically Signed: Jayne Nicolas MD at 8:16 EDT , Chest X-Ray 02/11/22 13:32 IMPRESSION: Limited examination. Limited inspiratory effort. No definite infiltrate is seen. Electronically Signed: Jesus Alberto Munoz MD at 14:41 EDT , Charges/Coding Visit Charges Inpatient E&M: 03443 Init Hosp L3
--- NOTE | 2022-02-11 15:16 | WOUNDNOTE ---
wound/skin photo: buttocks/scrotum
--- NOTE | 2022-02-11 18:21 | PCM.CONS.U ---
HPI Consult Data Date of Consult: 02/11/22 HPI Narrative HPI Narrative: OKSANA DAMIAN, is a 26 male with spina bifida who presented to the hospital with a urinary tract infection he is currently in the intensive care unit for sepsis. Apparently has a suprapubic catheter in but looks like at home per the nursing report he does not use a catheter but currently he does have a suprapubic catheter in place and is draining clear yellow urine. He had an ultrasound done to demonstrate some mild bilateral hydronephrosis I think this is a chronic finding also could be from his spina bifida chronic condition. I hope the patient will improve with resuscitation IV fluids and antibiotics in the intensive care unit I think it could be impossible to do any urological intervention on his kidneys given his body habitus and condition and severe scoliosis because of his spina bifida. If further urological intervention is could be necessary for this patient he may need to be transferred to a tertiary care center facility but at this point I think continue resuscitation as you have been doing and we will continue to monitor with you call me with questions. 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, stage 3 Right-sided heart failure Secondary pulmonary arterial hypertension Spina bifida Systolic CHF Umbilical hernia Home Medications spironolactone 25 mg tablet 25 mg PO DAILY water pill 30 days #30 tabs 08/30/18 [History Last Taken 02/08/22] furosemide 40 mg tablet 40 mg PO DAILY water pill 30 days #30 tabs 09/07/18 [History Last Taken 02/08/22] ferrous gluconate 240 mg (27 mg iron) tablet (Ferate) 27 mg PO BID iron 02/10/22 [History Last Taken 02/08/22] Allergy/AdvReac Type Severity Reaction Status Date / Time ampicillin Allergy rash Verified 02/10/22 23:55 fentanyl Allergy Rash Verified 02/10/22 23:55 latex Allergy Hives Verified 02/10/22 23:55 meropenem Allergy rash Verified 02/10/22 23:55 morphine Allergy Hives Verified 02/10/22 23:55 Family History Grandfather Heart disease Father Hypertension Mother Hyperlipidemia Surgical History History of back surgery History of foot surgery History of ventriculoperitoneal shunting S/P cutaneous-vesicostomy S/P ureteral stent placement Status post laser lithotripsy of ureteral calculus Social History household members: family Smoking Status: Never smoker second hand exposure: Yes alcohol intake: never substance use type: does not use Lab / Micro Data Result Diagrams: 02/11/22 06:48 02/11/22 06:48 Labs: Laboratory Results - last 24 hr 02/10/22 19:25: WBC 17.8 H, RBC 4.89, Hgb 12.6 L, Hct 42.2, MCV 86.3, MCH 25.8 L, MCHC 29.9 L, RDW Std Deviation 54.7 H, RDW Coeff of [place] 17.4 H, Plt Count 580 H, MPV 9.5 02/10/22 19:25: Sodium 138, Potassium 5.4 H, Chloride 114 H, Carbon Dioxide 12.0 L, Anion Gap 12, BUN 86 H, Creatinine 3.58 H, Estim Creat Clear Calc 23.72, Est GFR (MDRD) Af Amer 26 L, Est GFR (MDRD) Non-Af 22 L, BUN/Creatinine Ratio 24.0 H, Glucose 89, Calcium 8.3 L 02/10/22 19:25: Lactic Acid 0.7 02/10/22 20:18: Urine Color Brown, Urine Clarity Cloudy, Urine pH 8.0, Ur Specific [place] 1.015, Urine Protein 500 H, Urine Glucose (UA) Normal, Urine Ketones 5 H, Urine Occult Blood 250 H, Urine Nitrite Positive H, Urine Bilirubin Negative, Urine Urobilinogen Normal, Ur Leukocyte Esterase 500 H, Urine RBC > 100 SEEN, Urine WBC >100 SEEN, Ur Squamous Epith Cells 0 SEEN, Urine Bacteria 3+, Urine Mucus 0 SEEN 02/10/22 20:18: Ur Random Sodium 123, Urine Creatinine < 13.00 02/10/22 20:35: PT 16.9 H, INR 1.4, APTT 35.3 02/11/22 06:48: WBC 17.9 H, RBC 4.72, Hgb 12.5 L, Hct 41.3, MCV 87.5, MCH 26.5 L, MCHC 30.3 L, RDW Std Deviation 55.9 H, RDW Coeff of [place] 17.3 H, Plt Count 526 H, MPV 9.4, Immature Gran % (Auto) 1.700 H, Neut % (Auto) 78.3 H, Lymph % (Auto) 11.2 L, [place] % (Auto) 7.8, Eos % (Auto) 0.5, Baso % (Auto) 0.5, Absolute Neuts (auto) 14.0 H, Absolute Lymphs (auto) 2.01, Nucleated RBC % 0 02/11/22 06:48: Sodium 137, Potassium 5.4 H, Chloride 116 H, Carbon Dioxide 6.0 L*, Anion Gap 15, BUN 84 H, Creatinine 3.44 H, Estim Creat Clear Calc 24.69, Est GFR (MDRD) Af Amer 27 L, Est GFR (MDRD) Non-Af 23 L, BUN/Creatinine Ratio 24.4 H, Glucose 73 L, Calcium 7.9 L, Total Bilirubin 0.20, AST 10 L, ALT 8 L, Alkaline Phosphatase 122 H, Total Protein 7.4, Albumin 1.4 L, Globulin 6.0 H, Albumin/Globulin Ratio 0.2 L Micro: Microbiology 02/10/22 19:45 Stool C. difficile DNA Amplification - Final ABG Data ABG results: ABG 02/11/22 13:38 Specimen Type ART Sample Site R Radial pH 7.17 L* Bicarbonate Actual 9.5 L Total CO2 10 Base Excess -19 L O2 Saturation 96 O2 % 21 ABG pCO2 26.0 L ABG pO2 104 H Valdemar Test Positive O2 Delivery Device BiPAP Vent Mode avaps Tidal Volume 500 Crit Call To/Read Back Yes Blood Gas Notified Whom dimitri Rhythm Strip Rhythm Strip: Sinus Tach Rate: 105 Ectopy: None Radiology Impression Renal Ultrasound 02/11/22 05:55 IMPRESSION: Enlarged bilateral kidneys with multiple renal calculi and moderate bilateral hydronephrosis. Electronically Signed: Jayne Nicolas MD at 8:16 EDT Reading Location ID and State: [facility] / MD Tel , Service support , Chest X-Ray 02/11/22 13:32 IMPRESSION: Limited examination. Limited inspiratory effort. No definite infiltrate is seen. Electronically Signed: Jesus Alberto Munoz MD at 14:41 EDT ,
[2022-02-11] MEDS: 0.9% Saline Lock 10 ML Syringe IV (21:47)
[2022-02-12] VITALS (37 sets, daily range): BP systolic 90–151; BP diastolic 52–103; PULSE 85–129; RESP 12–39; TEMP 35.9–36.8; O2SAT 96–108
--- NOTE | 2022-02-12 04:24 | PCM.HOSP.N ---
Hospitalist Note Staff reporting appearance mildly increased breathing rate, fatigued appearance with concern for mild encephalopathy. Will request ABG, AM CBC, CMP now. Given prior lab review from this AM may require bicarb administration as was notably acidotic.
[2022-02-12 04:40] LABS: Absolute Lymphocyte Count 2.12 X10^3/uL (0.83-4.51); Absolute Neutrophil Count 12.9 X10^3/uL (2.0-7.7); Basophil# 0.19 X10^3/uL; Basophil% 1.1 % (0-1); Eosinophil# 0.18 X10^3/uL; Hematocrit 41.4 % (40-54); Hemoglobin 12.6 g/dL (13.0-16.5); Lymphocyte # 2.12 X10^3/ul (0.83-4.51); Lymphocyte % 12.3 % (19-41); Mean Corp Hgb Conc 30.4 g/dL (32-36); Mean Corpuscular Hgb 26.1 pg (27.0-32.0); Mean Corpuscular Volume 85.7 fL (80-94); Mean Platelet Vol. 9.6 fl (6.2-12.0); Monocyte# 1.26 X10^3/uL; Monocyte% 7.3 % (0-10); NRBC Flagged by Analyzer 0 % (0-5); Neutrophil # 12.94 X10^3/uL (2.7-7.7); Neutrophil % 74.8 % (47-70); Platelet Count 504 K/mm3 (150-450); RBC Distribution Width CV 17.9 % (11.6-14.6); RBC Distribution Width SD 56.8 fl (35.1-43.9); Red Blood Count 4.83 M/mm3 (4.6-6.2); White Blood Count 17.3 K/mm3 (4.4-11.0)
[2022-02-12 04:46] LABS: Bedside Glucose 73 mg/dL (74-106)
[2022-02-12 04:55] LABS: Base Excess -22 mmol/L (-2 to +2); Bicarbonate 6.8 mmol/L (22-26); Blood Gas Specimen Type ART; O2 Delivery Device Room Air; PO2 111 mmHG (75-100); SITE L Radial; SO2 97 % (95-99); Total Carbon Dioxide 7 mmol/L; pCO2 18.4 mmHg (35-45); pH 7.18 (7.35-7.45)
[2022-02-12] MEDS: Succinylcholine Chloride 200 MG/10 ML SYRINGE 100 MG IV (05:05)
--- NOTE | 2022-02-12 05:15 | RAD_ITS ---
EXAM: XR CHEST, 1 VIEW CLINICAL INDICATION: To confirm ET placement -- Call wet read to TECHNIQUE: Frontal view of the chest. This report was created using [employer] report generation technology. COMPARISON: 02/11/2022. FINDINGS: LUNGS AND PLEURAL SPACES: Very lung volumes limit the exam. No consolidations. No pneumothorax. No effusion. HEART: Unremarkable. Cardiac silhouette not enlarged. MEDIASTINUM: Central airways and mediastinal contour are unremarkable. BONES/JOINTS: Severe scoliosis with posterior fixation. SOFT TISSUES: Unremarkable. TUBES, LINES AND DEVICES: Endotracheal tube tip is 2.6 cm above the antionette. NG tube is in the stomach. RAD/Chest 1 View (Portable) IMPRESSION: 1. Endotracheal tube tip is 2.6 cm above the antionette. 2. NG tube is in the stomach. 3. Very lung volumes limit the exam. No consolidations. 4. No acute cardiopulmonary abnormality. 5. Severe scoliosis with posterior fixation. Electronically Signed: Rojelio Marx MD at 6:05 EDT ,
[2022-02-12] MEDS: Propofol 10MG/Ml 1,000 MG/100 ML Bottle 7.2 MG CONT INF (05:26)
[2022-02-12 05:27] LABS: ALB/GLOB Ratio 0.2 RATIO (0.9-2.4); AST(SGOT) 16 U/L (15-37); Alanine Aminotransfer ALT/SGPT 9 U/L (16-61); Albumin, Serum 1.4 g/dL (3.2-5.0); Alkaline Phosphatase 131 U/L (45-117); Anion Gap 15 (5-15); BUN 89 mg/dL (7-18); BUN/Creat Ratio 23.2 RATIO (10-20); Calcium,Total 8.3 mg/dL (8.5-10.1); Chloride 116 mmol/L (98-107); Creatinine, Serum 3.83 mg/dL (0.70-1.30); EST Glomerular Filtration Rate 20 mL/min (>60); Est Glom Filt Rate - Afr Amer 24 mL/min (>60); Estimated Creatinine Clearance 22.18 ml/min; Globulin 6.1 g/dL (2.2-4.2); Glucose 83 mg/dL (74-106); Potassium 5.5 mmol/L (3.5-5.1); Protein, Total 7.5 g/dL (6.4-8.2); Sodium Level 138 mmol/L (136-145)
[2022-02-12] MEDS: Midazolam 2 MG/2 ML Syringe 4 MG IV (05:56)
[2022-02-12] MEDS: Etomidate 20 MG/10 ML Vial IV (05:56)
[2022-02-12] MEDS: Nystatin Powder 15gm Bottle 1 APPLIC TOPICAL ×3 (06:03→21:13)
[2022-02-12] MEDS: 0.9% Saline Lock 10 ML Syringe IV ×2 (06:09→06:10)
--- NOTE | 2022-02-12 06:23 | NURSING ---
0450: Dr. Ferguson at bedside to prepare for RSI d/t respiratory fatigue and increased work of breathing. 0501: 20 mg etomidate IVP given. 0502: 4 mg versed IVP given. RT bagging pt. 0505: 100 mg succ IVP given d/t difficulty intubating. 0507: 7.5 cm tube, 24 @ lip, positive color change, and bilateral breath sounds. OG placed.
[2022-02-12 06:39] LABS: CPK Total, Creatine Kinase 24 U/L (39-308); Triglycerides 192 mg/dL
[2022-02-12 06:43] LABS: Ferritin 138 ng/mL (26-388)
--- NOTE | 2022-02-12 07:21 | PN.CC_ITS ---
Assessment & Plan Assessment/Plan (1) Complicated urinary tract infection: (2) Severe sepsis with acute organ dysfunction: (3) Chronic systolic (congestive) heart failure: (4) Secondary pulmonary arterial hypertension: PLAN: Plan RECOMMENDATIONS: 1. Continue cefepime pending culture results 2. Continue mechanical ventilation 3. Monitor closely for hypotension. Cannot exclude need for central line and pressors 4. Obtain nephrology consult. Initiate bicarbonate drip 5. Wean oxygen as tolerated to keep saturations between 90 and 94% 6. Potential transfer for urologic investigation/intervention 7. Confirmed full CODE STATUS IMPRESSIONS: 1. Sepsis secondary to complicated UTI Patient with evidence of endorgan damage with acute kidney injury and respiratory failure requiring AVAPS rescue. Patient with significant acidosis leading to tachypnea and respiratory muscle fatigue. Continue with antibiotics for now. Anticipate improved respiratory status as sepsis improves. Some concern for postobstructive renal failure. Cannot exclude the need for pressors moving forward. Given patient's respiratory status, fluids must be given cautiously if at all. Patient appears to be oxygenating well for now. 2. Acute respiratory failure secondary to respiratory muscle fatigue Patient deteriorated overnight with respiratory muscle fatigue requiring intubation this morning. Chest x-ray shows appropriate placement of the endotracheal tube with the limitations of body habitus. No significant infiltrates are appreciated. Patient is oxygenating well 3. Acute kidney injury Patient with baseline creatinine of approximately 0.8 and presents with a creatinine of 3.58. Nephrotoxic medications have been held. Patient does have a history of nephrolithiasis with renal ultrasound showing postobstructive issues. Urologic options limited per consult. Exam is significantly limited given abdominal obesity. Cannot exclude the need for renal replacement therapy, but bicarbonate drip has been ordered. Nephrology consulted. Patient may requi re transfer for definitive urologic interventions. Hyperkalemia likely secondary to acidosis. 4. Chronic normocytic anemia/chronic systolic CHF/spina bifida with paraplegia/lymphedema/morbid obesity/pressure ulcers Complicates care, management, recovery and prognosis. Clinical suspicion for controlled congestive heart failure at this time. Cannot exclude the devel opment of worsening congestive heart failure with additional fluid boluses. Wound nurse has been consulted. TIME: 34 minutes critical care time spent addressing patient's complicated UTI, acute respiratory failure, acute kidney injury, review of all data and collaboration with care team Subjective Subjective Overnight events reviewed. Unfortunately, patient did develop paradoxical breathing requiring intubation. Patient also initiated on a bicarbonate drip. Urology did assess the patient and states that interventions at [facility] are limited. Did discuss with the patient's family at the bedside and they are willing to transfer him if necessary. Family also reported the patient has had a rash to morphine in the past. They believe it is also happen with fentanyl, but were not sure. Objective Data Objective Data Vital Signs: Vital Signs Temp Pulse Resp BP Pulse Ox O2 Del Method FiO2 36.3 C L 120 H 31 H 121/94 H 98 Bi-pap 28 02/12/22 00:00 02/12/22 05:44 02/12/22 05:44 02/12/22 03:00 02/12/22 05:44 02/12/22 03:00 02/12/22 05:44 Oxygen Delivery Method Bi-pap Weight: 119.4 kg Body Mass Index (BMI) 46.7 Intake & Output: Intake and Output for Last 24 Hours 02/10/22 02/11/22 02/12/22 23:59 23:59 23:59 Intake Total 1253 / 1253 2607.5 / 2607.5 5.19 / 5.19 Output Total 2900 / 3300 400 / 400 Balance 1253 / -797 -292.5 / -692.5 -394.81 / -394.81 Lab / Micro Data Attestation: I reviewed the patient's lab results. Result Diagrams: 02/12/22 04:30 02/12/22 04:56 Labs: Laboratory Results - last 24 hr 02/11/22 06:48: Sodium 137, Potassium 5.4 H, Chloride 116 H, Carbon Dioxide 6.0 L*, Anion Gap 15, BUN 84 H, Creatinine 3.44 H, Estim Creat Clear Calc 24.69, Est GFR (MDRD) Af Amer 27 L, Est GFR (MDRD) Non-Af 23 L, BUN/Creatinine Ratio 24.4 H , Glucose 73 L, Calcium 7.9 L, Total Bilirubin 0.20, AST 10 L, ALT 8 L, Alkaline Phosphatase 122 H, Total Protein 7.4, Albumin 1.4 L, Globulin 6.0 H, Albumin/Globulin Ratio 0.2 L 02/12/22 04:25: POC Glucose 73 L 02/12/22 04:30: WBC 17.3 H, RBC 4.83, Hgb 12.6 L, Hct 41.4, MCV 85.7, MCH 26.1 L , MCHC 30.4 L, RDW Std Deviation 56.8 H, RDW Coeff of Francisco 17.9 H, Plt Count 504 H, MPV 9.6, Immature Gran % (Auto) 3.500 H, Neut % (Auto) 74.8 H, Lymph % (Auto) 12.3 L, [place] % (Auto) 7.3, Eos % (Auto) 1.0, Baso % (Auto) 1.1 H, Absolute Neuts (auto) 12.9 H, Absolute Lymphs (auto) 2.12, Nucleated RBC % 0 02/12/22 04:30: Sodium Cancelled, Potassium Cancelled, Chloride Cancelled, Carbon Dioxide Cancelled, Anion Gap Cancelled, BUN Cancelled, Creatinine Cancelled, Estim Creat Clear Calc Cancelled, Est GFR (MDRD) Af Amer Cancelled, Est GFR (MDRD) Non-Af Cancelled, BUN/Creatinine Ratio Cancelled, Glucose Cancelled, Calcium Cancelled, Total Bilirubin Cancelled, AST Cancelled, ALT Cancelled, Alkaline Phosphatase Cancelled, Total Protein Cancelled, Albumin Cancelled, Globulin Cancelled, Albumin/Globulin Ratio Cancelled 02/12/22 04:56: Ferritin 138 02/12/22 04:56: Sodium 138, Potassium 5.5 H, Chloride 116 H, Carbon Dioxide 7.0 L*, Anion Gap 15, BUN 89 H, Creatinine 3.83 H, Estim Creat Clear Calc 22.18, Est GFR (MDRD) Af Amer 24 L, Est GFR (MDRD) Non-Af 20 L, BUN/Creatinine Ratio 23.2 H , Glucose 83, Calcium 8.3 L, Total Bilirubin 0.30, AST 16, ALT 9 L, Alkaline Phosphatase 131 H, Total Protein 7.5, Albumin 1.4 L, Globulin 6.1 H, Albumin/Globulin Ratio 0.2 L 02/12/22 04:56: Total Creatine Kinase 24 L, Triglycerides 192 Micro: Microbiology 02/10/22 19:45 Stool C. difficile DNA Amplification - Final ABG Data ABG results: ABG 02/11/22 02/12/22 13:38 04:50 Specimen Type ART ART Sample Site R Radial L Radial pH 7.17 L* 7.18 L* Bicarbonate Actual 9.5 L 6.8 L Total CO2 10 7 Base Excess -19 L -22 L O2 Saturation 96 97 O2 % 21 ABG pCO2 26.0 L 18.4 L* ABG pO2 104 H 111 H Valdemar Test Positive O2 Delivery Device BiPAP Room Air Vent Mode avaps Tidal Volume 500 Crit Call To/Read Back Yes Yes Blood Gas Notified Whom dimitri Ferguson Attestation: I personally reviewed and interpreted this ABG as follows: (Partially compensated metabolic acidosis) Radiography Diagnostic Testing: Radiology Impression Renal Ultrasound 02/11/22 05:55 IMPRESSION: Enlarged bilateral kidneys with multiple renal calculi and moderate bilateral hydronephrosis. Electronically Signed: Jayne Nicolas MD at 8:16 EDT , Chest X-Ray 02/11/22 13:32 IMPRESSION: Limited examination. Limited inspiratory effort. No definite infiltrate is seen. Electronically Signed: Jesus Alberto Munoz MD at 14:41 EDT , Chest X-Ray 02/12/22 05:15 IMPRESSION: 1. Endotracheal tube tip is 2.6 cm above the antionette. 2. NG tube is in the stomach. 3. Very lung volumes limit the exam. No consolidations. 4. No acute cardiopulmonary abnormality. 5. Severe scoliosis with posterior fixation. Electronically Signed: Rojelio Marx MD at 6:05 EDT , Rhythm Strip Rhythm Strip: Sinus Tach Rate: 124 Ectopy: None Physical Exam Const no apparent distress Constitutional Narrative: Recently paralyzed on my evaluation General Appearance: patient mechanically ventilated HEENT normocephalic and head/scalp atraumatic Eyes Eyes Narrative: Recently paralyzed Neck supple and No nodes Neck Narrative: JVD difficult to assess given body habitus and ramos Resp clear to auscultation bilaterally Auscultation: diminished lung sounds; Negative for rales, rhonchi or wheezes Cardio regular rate, S1 normal heart sound, S2 normal heart sound, no murmurs, no rub and no gallops Rate: tachycardic GI soft to palpation, non-tender and non-distended GI Narrative: Appears to have very mobile suprapubic catheter. Significant abdominal obesity limits exam Extremity General Extremity: edema Skin Skin Narrative: unable to visualize pelvic wound. Neuro oriented x3 and CN's II-XII intact bilaterally Neuro Narrative: Paraplegia with atrophy noted Psych Mood & Affect: flat affect Charges/Coding Procedures Hospitalists Procedures: 17992 Critial Care 1st Hr
[2022-02-12] MEDS: Propofol 10MG/Ml 1,000 MG/100 ML Bottle 35.8 MG CONT INF ×2 (08:16→11:04)
--- NOTE | 2022-02-12 09:14 | PCM.PN.ID ---
Physical Exam Narrative Now in icu, intubated, no fever Const no apparent distress Resp Effort and Inspection: mechanically ventilated Cardio regular rate and regular rhythm GI soft to palpation, non-tender and non-distended Skin Skin Narrative: wound bandaged, reviewed photo ID ID: Route of nutrition/ use of supplements: [] Nutritional Intake: [] IV Site: [] Bonilla Catheter: [] Assessment & Plan Assessment/Plan (1) Severe sepsis with acute organ dysfunction: PLAN: Complicated by RUTH. Imaging shows bilateral renal stones and hydro. Urology recommends transfer, now in process. Ucx with alpha hemolytic organism. Cont cefepime, adjusting dose due to worsening GFR. Neph consulted. Now intubated. Would avoid further aminoglycosides given his RUTH. Small scrotal wound, seen by wound care. Will follow (2) Paraplegia: (3) Complicated urinary tract infection:
[2022-02-12] MEDS: Menthol/Lanolin/Calamine/Znox 113 GM Tube 1 APPLIC TOPICAL ×3 (10:01→21:13)
[2022-02-12] MEDS: Chlorhexidine 15 ML PO ×2 (10:02→21:13)
--- NOTE | 2022-02-12 10:06 | CON.PCM.RE_ITS ---
Assessment & Plan Assessment/Plan (1) RUTH (acute kidney injury): PLAN: The patient has normal as of 2019. Serum creatinine was 0.72 mg/dL then. The patient was admitted on 02/10/2022 with serum creatinine of 3.58 mg/dL. There has been further progression of RUTH since admission despite stable hemodynamics. Suspect this is RUTH from ATN related to severe sepsis. The patient is still making urine. He has mild hyperkalemia and acidosis which should still be treatable medically. No need for dialysis at this point. We will recheck renal function later today and in the morning. (2) Metabolic acidosis: PLAN: Acidosis is secondary to RUTH. Will start patient on isotonic sodium bicarbonate infusion. Recheck serum bicarbonate level later today and in a.m. (3) Hyperkalemia: PLAN: The patient has mild hyperkalemia with potassium level 5.5 mmol/L. This is secondary to RUTH and severe acidosis. He is still making urine, so potassium should still be treatable with bicarbonate drip which we are starting. We will recheck potassium level later today and in a.m. (4) Severe sepsis with acute organ dysfunction: PLAN: The patient is being treated for complicated UTI. Antimicrobial is appropriately dosed for his renal function. HPI Consult Data Date of Consult: 02/13/22 HPI Narrative Reason for Consultation: Acute kidney injury HPI Narrative: OKSANA DAMIAN, is a 26-year-old man with history of spina bifida with paraplegia, bladder dysfunction status post suprapubic tube placement, anemia, heart failure with reduced ejection fraction, pulmonary hypertension, morbid obesity, and SOPHIA. The patient presented to the hospital on 02/10/2022 with fever, foul-smelling urine, poor oral intake and loose bowel movements. The patient was actually admits of treatment with oral antibiotic for UTI. He was initially on amoxicillin for 2 weeks without improvement. He had been on levofloxacin for 3 days prior to presentation. On presentation, the patient was found to have severe sepsis due to complicated UTI. He has subsequently been intubated although he is not currently on IV vasopressor. Prior to admission, the patient had been on spironolactone and furosemide. He was not on RAMIRO inhi bitor or ARB. There is no prior chronic use of NSAIDs. Ultrasound of the kidney from 02/11/2022 showed bilateral nephrolithiasis. There is moderate hydronephrosis in both kidneys. The patient is currently intubated and sedated. We cannot obtain any history directly from the patient. However, his father, Victor M, was extensively interviewed. The patient has not been followed by nephrology as outpatient. He has seen urology at [facility] in the past. He was followed by Dr. Pino, pediatric urologist. However, he has not seen urology recently since he is aged out from [facility]. The patient has what sounds like a Mitrofanoff valve that was being catheterized in the past. The patient has not been doing self cath lately. He does have suprapubic tube. There has been no hospitalization since 2019. At that time, renal function was normal. The patient's father is unsure if there has been more recent blood work since [address] Romero's office. 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, stage 3 Right-sided heart failure Secondary pulmonary arterial hypertension Spina bifida Systolic CHF Umbilical hernia Home Medications spironolactone 25 mg tablet 25 mg PO DAILY water pill 30 days #30 tabs 08/30/18 [History Last Taken 02/08/22] furosemide 40 mg tablet 40 mg PO DAILY water pill 30 days #30 tabs 09/07/18 [ History Last Taken 02/08/22] ferrous gluconate 240 mg (27 mg iron) tablet (Ferate) 27 mg PO BID iron 02/10/22 [History Last Taken 02/08/22] Allergy/AdvReac Type Severity Reaction Status Date / Time ampicillin Allergy rash Verified 02/10/22 23:55 fentanyl Allergy Rash Verified 02/10/22 23:55 latex Allergy Hives Verified 02/10/22 23:55 meropenem Allergy rash Verified 02/10/22 23:55 morphine Allergy Hives Verified 02/10/22 23:55 Family History Grandfather Heart disease Father Hypertension Mother Hyperlipidemia Surgical History History of back surgery History of foot surgery History of ventriculoperitoneal shunting S/P cutaneous-vesicostomy S/P ureteral stent placement Status post laser lithotripsy of ureteral calculus Social History household members: family Smoking Status: Never smoker second hand exposure: Yes alcohol intake: never substance use type: does not use ROS ROS Narrative Cannot do ROS because patient is intubated and sedated. Physical Exam Narrative General appearance: Ill-appearing. On mechanical ventilator and sedated. HEENT: Normocephalic, atraumatic. Mucous membrane moist. He is intubated. Pupils equal round and reactive to light. Neck: Thick but supple. Heart: Normal S1, S2. No rubs, murmurs or gallops. Lungs: Coarse breath sound anteriorly. Abdomen: Obese, normal bowel sound, firm, nontender. No guarding or rebound. Extremities: 1+ edema in the lower extremity bilaterally. No clubbing or cyanosis. Neurologic: The patient is sedated so neurologic exam is limited. However, there is no focal neurologic deficit on my exam. Skin: Warm and dry. No rash. Lab / Micro Data Result Diagrams: 02/13/22 04:05 02/13/22 04:05 Labs: Laboratory Results - last 24 hr 02/10/22 20:18: Urine Color Brown, Urine Clarity Cloudy, Urine pH 8.0, Ur Specific [place] 1.015, Urine Protein 500 H, Urine Glucose (UA) Normal, Urine Ketones 5 H, Urine Occult Blood 250 H, Urine Nitrite Positive H, Urine Bilirubin Negative, Urine Urobilinogen Normal, Ur Leukocyte Esterase 500 H, Urine RBC > 100 SEEN, Urine WBC >100 SEEN, Ur Squamous Epith Cells 0 SEEN, Urine Bacteria 3+, Urine Mucus 0 SEEN 02/12/22 04:25: POC Glucose 73 L 02/12/22 04:30: WBC 17.3 H, RBC 4.83, Hgb 12.6 L, Hct 41.4, MCV 85.7, MCH 26.1 L , MCHC 30.4 L, RDW Std Deviation 56.8 H, RDW Coeff of Francisco 17.9 H, Plt Count 504 H, MPV 9.6, Immature Gran % (Auto) 3.500 H, Neut % (Auto) 74.8 H, Lymph % (Auto) 12.3 L, [place] % (Auto) 7.3, Eos % (Auto) 1.0, Baso % (Auto) 1.1 H, Absolute Neuts (auto) 12.9 H, Absolute Lymphs (auto) 2.12, Nucleated RBC % 0 02/12/22 04:30: Sodium Cancelled, Potassium Cancelled, Chloride Cancelled, Carbon Dioxide Cancelled, Anion Gap Cancelled, BUN Cancelled, Creatinine Cancelled, Estim Creat Clear Calc Cancelled, Est GFR (MDRD) Af Amer Cancelled, Est GFR (MDRD) Non-Af Cancelled, BUN/Creatinine Ratio Cancelled, Glucose Can celled, Calcium Cancelled, Total Bilirubin Cancelled, AST Cancelled, ALT Cancelled, Alkaline Phosphatase Cancelled, Total Protein Cancelled, Albumin Cancelled, Globulin Cancelled, Albumin/Globulin Ratio Cancelled 02/12/22 04:56: Ferritin 138 02/12/22 04:56: Sodium 138, Potassium 5.5 H, Chloride 116 H, Carbon Dioxide 7.0 L*, Anion Gap 15, BUN 89 H, Creatinine 3.83 H, Estim Creat Clear Calc 22.18, Est GFR (MDRD) Af Amer 24 L, Est GFR (MDRD) Non-Af 20 L, BUN/Creatinine Ratio 23.2 H , Glucose 83, Calcium 8.3 L, Total Bilirubin 0.30, AST 16, ALT 9 L, Alkaline Phosphatase 131 H, Total Protein 7.5, Albumin 1.4 L, Globulin 6.1 H, Albumin/Globulin Ratio 0.2 L 02/12/22 04:56: Total Creatine Kinase 24 L, Triglycerides 192 Micro: Microbiology 02/10/22 20:18 Urine Catheter - Bonilla Urine Culture - Preliminary Alpha hemolytic organism ABG Data ABG results: ABG 02/11/22 02/12/22 13:38 04:50 Specimen Type ART ART Sample Site R Radial L Radial pH 7.17 L* 7.18 L* Bicarbonate Actual 9.5 L 6.8 L Total CO2 10 7 Base Excess -19 L -22 L O2 Saturation 96 97 O2 % 21 ABG pCO2 26.0 L 18.4 L* ABG pO2 104 H 111 H Valdemar Test Positive O2 Delivery Device BiPAP Room Air Vent Mode avaps Tidal Volume 500 Crit Call To/Read Back Yes Yes Blood Gas Notified Whom dimitri Ferguson Rhythm Strip Rhythm Strip: Sinus Tach Rate: 124 Ectopy: None Radiology Impression Chest X-Ray 02/11/22 13:32 IMPRESSION: Limited examination. Limited inspiratory effort. No definite infiltrate is seen. Electronically Signed: Jesus Alberto Munoz MD at 14:41 EDT , Chest X-Ray 02/12/22 05:15 IMPRESSION: 1. Endotracheal tube tip is 2.6 cm above the antionette. 2. NG tube is in the stomach. 3. Very lung volumes limit the exam. No consolidations. 4. No acute cardiopulmonary abnormality. 5. Severe scoliosis with posterior fixation. Electronically Signed: Rojelio Marx MD at 6:05 EDT ,
[2022-02-12] MEDS: FLU VACC QS2022-23(6MOS UP)/PF 60 MCG/0.5 ML SYRINGE IM (11:05)
--- NOTE | 2022-02-12 13:05 | CPS ---
Critical ABG values, Dr. Mega nicole.
[2022-02-12 13:15] LABS: Allen Test Positive; Base Excess -21 mmol/L (-2 to +2); Bicarbonate 7.2 mmol/L (22-26); Blood Gas Specimen Type ART; FI02 28; Mode AC; O2 Delivery Device ET Tube; PEEP 5; PO2 155 mmHG (75-100); RR 12; SITE R Radial; SO2 99 % (95-99); Total Carbon Dioxide 8 mmol/L; Vt 450; pCO2 18.8 mmHg (35-45); pH 7.19 (7.35-7.45)
[2022-02-12] MEDS: fentaNYL 100 MCG/2 ML Ampul 50 MCG IV (13:51)
--- NOTE | 2022-02-12 15:36 | PCM.PN.HOSP ---
Subjective Subjective In and examined today, he is sedated and on the ventilator at this time, I talked with his family members who are in the room at the time of my examination. I also talked with critical care as well as nephrology concerning his care. Nephrology feels that the patient has a chronic hydronephrosis and does not need to be transferred to a tertiary facility to be seen by urologist. Objective Data Objective Data Vital Signs: Vital Signs Temp Pulse Resp BP Pulse Ox O2 Del Method FiO2 97.8 F 107 H 27 H 108/66 99 Mechanical Ventilator 28 02/12/22 12:00 02/12/22 15:00 02/12/22 15:00 02/12/22 15:00 02/12/22 15:00 02/12/22 15:00 02/12/22 15:00 Oxygen Delivery Method Mechanical Ventilator Weight: 119.4 kg Body Mass Index (BMI) 46.7 Intake & Output: Intake and Output for Last 24 Hours 02/10/22 02/11/22 02/12/22 23:59 23:59 23:59 Intake Total 1253 / 1253 2607.5 / 2607.5 1027.59 / 1027.59 Output Total 2900 / 3300 950 / 950 Balance 1253 / -797 -292.5 / -692.5 77.59 / 77.59 Lab / Micro Data Result Diagrams: 02/12/22 04:30 02/12/22 04:56 Labs: Laboratory Results - last 24 hr 02/10/22 20:18: Urine Color Brown, Urine Clarity Cloudy, Urine pH 8.0, Ur Specific [place] 1.015, Urine Protein 500 H, Urine Glucose (UA) Normal, Urine Ketones 5 H, Urine Occult Blood 250 H, Urine Nitrite Positive H, Urine Bilirubin Negative, Urine Urobilinogen Normal, Ur Leukocyte Esterase 500 H, Urine RBC > 100 SEEN, Urine WBC >100 SEEN, Ur Squamous Epith Cells 0 SEEN, Urine Bacteria 3+, Urine Mucus 0 SEEN 02/12/22 04:25: POC Glucose 73 L 02/12/22 04:30: WBC 17.3 H, RBC 4.83, Hgb 12.6 L, Hct 41.4, MCV 85.7, MCH 26.1 L, MCHC 30.4 L, RDW Std Deviation 56.8 H, RDW Coeff of Francisco 17.9 H, Plt Count 504 H, MPV 9.6, Immature Gran % (Auto) 3.500 H, Neut % (Auto) 74.8 H, Lymph % (Auto) 12.3 L, [place] % (Auto) 7.3, Eos % (Auto) 1.0, Baso % (Auto) 1.1 H, Absolute Neuts (auto) 12.9 H, Absolute Lymphs (auto) 2.12, Nucleated RBC % 0 02/12/22 04:30: Sodium Cancelled, Potassium Cancelled, Chloride Cancelled, Carbon Dioxide Cancelled, Anion Gap Cancelled, BUN Cancelled, Creatinine Cancelled, Estim Creat Clear Calc Cancelled, Est GFR (MDRD) Af Amer Cancelled, Est GFR (MDRD) Non-Af Cancelled, BUN/Creatinine Ratio Cancelled, Glucose Cancelled, Calcium Cancelled, Total Bilirubin Cancelled, AST Cancelled, ALT Cancelled, Alkaline Phosphatase Cancelled, Total Protein Cancelled, Albumin Cancelled, Globulin Cancelled, Albumin/Globulin Ratio Cancelled 02/12/22 04:56: Ferritin 138 02/12/22 04:56: Sodium 138, Potassium 5.5 H, Chloride 116 H, Carbon Dioxide 7.0 L*, Anion Gap 15, BUN 89 H, Creatinine 3.83 H, Estim Creat Clear Calc 22.18, Est GFR (MDRD) Af Amer 24 L, Est GFR (MDRD) Non-Af 20 L, BUN/Creatinine Ratio 23.2 H, Glucose 83, Calcium 8.3 L, Total Bilirubin 0.30, AST 16, ALT 9 L, Alkaline Phosphatase 131 H, Total Protein 7.5, Albumin 1.4 L, Globulin 6.1 H, Albumin/Globulin Ratio 0.2 L 02/12/22 04:56: Total Creatine Kinase 24 L, Triglycerides 192 Micro: Microbiology 02/12/22 05:40 Sputum, Tracheal Aspirate Gram Stain - Final 02/10/22 20:18 Urine Catheter - Bonilla Urine Culture - Preliminary Alpha hemolytic organism 02/10/22 19:45 Stool C. difficile DNA Amplification - Final ABG Data ABG results: ABG 02/12/22 02/12/22 04:50 13:04 Specimen Type ART ART Sample Site L Radial R Radial pH 7.18 L* 7.19 L* Bicarbonate Actual 6.8 L 7.2 L Total CO2 7 8 Base Excess -22 L -21 L O2 Saturation 97 99 O2 % 28 ABG pCO2 18.4 L* 18.8 L* ABG pO2 111 H 155 H Valdemar Test Positive Respiration Rate 12 O2 Delivery Device Room Air ET Tube Vent Mode AC Tidal Volume 450 POC PEEP 5 Crit Call To/Read Back Yes Yes Blood Gas Notified Whom Dr. Ferguson Radiography Diagnostic Testing: Radiology Impression Chest X-Ray 02/12/22 05:15 IMPRESSION: 1. Endotracheal tube tip is 2.6 cm above the antionette. 2. NG tube is in the stomach. 3. Very lung volumes limit the exam. No consolidations. 4. No acute cardiopulmonary abnormality. 5. Severe scoliosis with posterior fixation. Electronically Signed: Rojelio Marx MD at 6:05 EDT , Rhythm Strip Rhythm Strip: Sinus Tach Rate: 124 Ectopy: None Physical Exam Const Constitutional Narrative: Patient is mildly sedated, he withdraws to painful stimuli. Patient is on the ventilator at this time HEENT head/scalp atraumatic and moist oral mucous membranes Neck no JVD Resp normal respiratory effort, no use of accessory muscles and clear to auscultation bilaterally Cardio regular rate, regular rhythm, S1 normal heart sound and S2 normal heart sound GI normal to inspection, nondistended, normoactive bowel sounds, soft to palpation and non-tender Extremity Extremity Narrative: Severe muscle atrophy is noted over the lower extremities Neuro CN's II-XII intact bilaterally Neuro Narrative: Patient has severe muscle atrophy of the lower extremities, patient is paraplegic Psych Psych Narrative: Patient is mildly sedated and on the ventilator Assessment & Plan Assessment/Plan (1) Metabolic acidosis: PLAN: Plan 1. Sepsis secondary to urinary tract infection from indwelling suprapubic Bonilla catheter-continue present antibiotic coverage per infectious diseases #2 acute respiratory failure-patient is now on a ventilator, critical care is participating in his care #3 acute kidney injury-nephrology is participating in his care, he will be given IV fluids and labs will be monitored #4 spina bifida with paraplegia-complicates care, management, recovery, and prognosis #5 metabolic acidosis-secondary to acute sepsis, nephrology is participating in his care, he is currently on a bicarb drip Charges/Coding Visit Charges Inpatient E&M: 02817 Subs Hosp L2
[2022-02-12 16:05] LABS: CPK Total, Creatine Kinase 175 U/L (39-308)
[2022-02-12 18:44] LABS: Albumin, Serum 1.3 g/dL (3.2-5.0); BUN 96 mg/dL (7-18); Calcium,Total 8.5 mg/dL (8.5-10.1); Chloride 115 mmol/L (98-107); Creatinine, Serum 4.17 mg/dL (0.70-1.30); EST Glomerular Filtration Rate 18 mL/min (>60); Est Glom Filt Rate - Afr Amer 22 mL/min (>60); Estimated Creatinine Clearance 20.37 ml/min; Glucose 91 mg/dL (74-106); Phosphorus 8.6 mg/dL (2.5-4.9); Potassium 5.1 mmol/L (3.5-5.1); Sodium Level 140 mmol/L (136-145)
[2022-02-12] MEDS: Propofol 10MG/Ml 1,000 MG/100 ML Bottle 14.3 MG CONT INF (19:42)
--- NOTE | 2022-02-12 19:52 | NURSING ---
This nurse checked pt's IV drips. The last bottle of propofol that was hung was not scanned. Propofol was running at 20mg/hr when this RN came on shift at 1900. Sodium bicarb drip was not changed to 150ml/hr, was still running at 100ml/hr. This RN changed rate to 150ml/hr, according to orders.
--- NOTE | 2022-02-12 21:36 | NURSING ---
This RN, with help of two fellow RNs and WOOL BRUSHER, rolled pt to assess suprapubic catheter, catheter was intact and draining, but had lots of sediment. Urine is dark brownish red, milky looking with clots. Catheter irrigated with 50cc sterile water, not much output drained back out. Pt was also incontinent of stool. [place] care provided, bed linens changed. While turning pt, catheter came out with balloon intact, bleeding noted from stoma. This RN placed a new latex-free catheter using sterile technique, inserted until resistance met, then inflated balloon with 10cc. No urine output noted at this time.
--- NOTE | 2022-02-12 21:54 | NURSING ---
Pt's father very concerned about pt's blood pressure of 92/53, map of 66. This RN provided education on goal blood pressure and the importance of map of 65 or greater. This RN provided emotional support and acknowledged that this BP looks scary because we're taught that 120/80 is normal, but this RN reassured pt's father that this BP is very good especially because his map is above 65, and that we don't start to worry until SBP drops or the map is below 65. This RN also reassured pt's father that we can see all of pt's vital signs on the monitor at the nurse's station and that we are taking his BP every hour.
[2022-02-13] VITALS (26 sets, daily range): BP systolic 88–100; BP diastolic 56–68; PULSE 77–94; RESP 12–26; TEMP 36.1–36.6; O2SAT 94–98
[2022-02-13] MEDS: Propofol 10MG/Ml 1,000 MG/100 ML Bottle 14.3 MG CONT INF (03:00)
[2022-02-13 04:09] LABS: Absolute Lymphocyte Count 2.13 X10^3/uL (0.83-4.51); Absolute Neutrophil Count 10.5 X10^3/uL (2.0-7.7); Basophil# 0.14 X10^3/uL; Basophil% 0.9 % (0-1); Eosinophil# 0.71 X10^3/uL; Eosinophils% 4.7 % (0-5); Hematocrit 35.8 % (40-54); Hemoglobin 11.2 g/dL (13.0-16.5); Lymphocyte # 2.13 X10^3/ul (0.83-4.51); Mean Corp Hgb Conc 31.3 g/dL (32-36); Mean Corpuscular Volume 83.1 fL (80-94); Mean Platelet Vol. 9.4 fl (6.2-12.0); Monocyte# 1.08 X10^3/uL; Monocyte% 7.1 % (0-10); NRBC Flagged by Analyzer 0 % (0-5); Neutrophil # 10.54 X10^3/uL (2.7-7.7); Neutrophil % 69.4 % (47-70); Platelet Count 468 K/mm3 (150-450); RBC Distribution Width CV 17.6 % (11.6-14.6); RBC Distribution Width SD 53.8 fl (35.1-43.9); Red Blood Count 4.31 M/mm3 (4.6-6.2); White Blood Count 15.2 K/mm3 (4.4-11.0)
[2022-02-13 04:21] LABS: Anion Gap 15 (5-15); BUN 91 mg/dL (7-18); BUN/Creat Ratio 20.4 RATIO (10-20); Chloride 110 mmol/L (98-107); Creatinine, Serum 4.47 mg/dL (0.70-1.30); EST Glomerular Filtration Rate 17 mL/min (>60); Est Glom Filt Rate - Afr Amer 20 mL/min (>60); Glucose 122 mg/dL (74-106); Potassium 4.3 mmol/L (3.5-5.1); Sodium Level 139 mmol/L (136-145)
[2022-02-13] MEDS: Nystatin Powder 15gm Bottle 1 APPLIC TOPICAL (05:40)
--- NOTE | 2022-02-13 07:57 | PCM.CONS.B ---
Consult Date of Consult: 02/13/22 Reason for Consult Spoke to Hospitalist this morning, the patient condition is deteriorating, less urine output, rising Cr. He does have rising cr and on ultrasound has hydro worse on right, At this point since he is not improving with resusitation I would recommend a right nephrostomy tube placed by interventional radiology given anatomy a stent placement will be impossible. Call me with questions or concerns.
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
[2022-02-13 09:07] LABS: International Normalized Ratio 1.3; Prothrombin Time (Protime)PT. 16.1 SECONDS (11.7-14.9)
[2022-02-13 09:08] LABS: Partial Thromboplast Time 34.7 Seconds (24.1-36.2)
[2022-02-13] MEDS: Menthol/Lanolin/Calamine/Znox 113 GM Tube 1 APPLIC TOPICAL (10:22)
[2022-02-13] MEDS: Chlorhexidine 15 ML PO (10:23)
--- NOTE | 2022-02-13 11:36 | PN.RENAL_ITS ---
Subjective Subjective Following for RUTH. The patient remains intubated on ventilator. Cannot do ROS. Objective Data Objective Data Vital Signs: Vital Signs Temp Pulse Resp BP Pulse Ox O2 Del Method FiO2 97.8 F 90 21 H 96/61 96 Mechanical Ventilator 21 02/13/22 10:00 02/13/22 11:14 02/13/22 11:14 02/13/22 11:00 02/13/22 11:14 02/13/22 11:00 02/13/22 11:14 Oxygen Delivery Method Mechanical Ventilator Weight: 120 kg Body Mass Index (BMI) 46.7 Intake & Output: Intake and Output for Last 24 Hours 02/11/22 02/12/22 02/13/22 23:59 23:59 23:59 Intake Total 2607.5 / 2607.5 1124.78 / 1139.08 2471.77 / 2471.77 Output Total 2900 / 3300 950 / 975 25 / 25 Balance -292.5 / -692.5 174.78 / 164.08 2446.77 / 2446.77 Lab / Micro Data Result Diagrams: 02/13/22 04:05 02/13/22 04:05 Labs: Laboratory Results - last 24 hr 02/10/22 20:18: Urine Color Brown, Urine Clarity Cloudy, Urine pH 8.0, Ur Specific [place] 1.015, Urine Protein 500 H, Urine Glucose (UA) Normal, Urine Ketones 5 H, Urine Occult Blood 250 H, Urine Nitrite Positive H, Urine Bilirubin Negative, Urine Urobilinogen Normal, Ur Leukocyte Esterase 500 H, Urine RBC > 100 SEEN, Urine WBC >100 SEEN, Ur Squamous Epith Cells 0 SEEN, Urine Bacteria 3+, Urine Mucus 0 SEEN 02/12/22 15:30: Sodium 140, Potassium 5.1, Chloride 115 H, Carbon Dioxide 7.0 L* , BUN 96 H, Creatinine 4.17 H, Estim Creat Clear Calc 20.37, Est GFR (MDRD) Af Amer 22 L, Est GFR (MDRD) Non-Af 18 L, BUN/Creatinine Ratio 23.0 H, Glucose 91, Calcium 8.5, Phosphorus 8.6 H, Albumin 1.3 L 02/12/22 15:30: Total Creatine Kinase 175 02/13/22 04:05: WBC 15.2 H, RBC 4.31 L, Hgb 11.2 L, Hct 35.8 L, MCV 83.1, MCH 26.0 L, MCHC 31.3 L, RDW Std Deviation 53.8 H, RDW Coeff of [place] 17.6 H, Plt Count 468 H, MPV 9.4, Immature Gran % (Auto) 3.900 H, Neut % (Auto) 69.4, Lymph % (Auto) 14.0 L, [place] % (Auto) 7.1, Eos % (Auto) 4.7, Baso % (Auto) 0.9, Absolute Neuts (auto) 10.5 H, Absolute Lymphs (auto) 2.13, Nucleated RBC % 0 02/13/22 04:05: Sodium 139, Potassium 4.3, Chloride 110 H, Carbon Dioxide 14.0 L , Anion Gap 15, BUN 91 H, Creatinine 4.47 H, Estim Creat Clear Calc 19.00, Est GFR (MDRD) Af Amer 20 L, Est GFR (MDRD) Non-Af 17 L, BUN/Creatinine Ratio 20.4 H , Glucose 122 H, Calcium 8.0 L 02/13/22 08:30: PT 16.1 H, INR 1.3, APTT 34.7 Micro: Microbiology 02/10/22 20:18 Urine Catheter - [facility] Urine Culture - Preliminary Alpha Hemolytic Streptococcus GPC Poss Enterococcus sp 02/12/22 05:40 Sputum, Tracheal Aspirate Gram Stain - Final 02/12/22 05:40 Sputum, Tracheal Aspirate Respiratory Culture - Preliminary Presumptive C albicans 02/10/22 20:30 Blood Culture (Wb) - Anticubital Right Blood Culture - Preliminary No growth in 48 hours. 02/10/22 20:35 Blood Culture (Wb) - Anticubital Left Blood Culture - Preliminary No growth in 48 hours. 02/10/22 19:45 Stool C. difficile DNA Amplification - Final ABG Data ABG results: ABG 02/12/22 13:04 Specimen Type ART Sample Site R Radial pH 7.19 L* Bicarbonate Actual 7.2 L Total CO2 8 Base Excess -21 L O2 Saturation 99 O2 % 28 ABG pCO2 18.8 L* ABG pO2 155 H Valdemar Test Positive Respiration Rate 12 O2 Delivery Device ET Tube Vent Mode AC Tidal Volume 450 POC PEEP 5 Crit Call To/Read Back Yes Rhythm Strip Rhythm Strip: Sinus Rhythm Rate: 88 Ectopy: None Physical Exam Narrative General appearance: Ill-appearing. On mechanical ventilator and sedated. HEENT: Normocephalic, atraumatic. Mucous membrane moist. He is intubated. Pupils equal round and reactive to light. Neck: Thick but supple. Heart: Normal S1, S2. No rubs, murmurs or gallops. Lungs: Coarse breath sound anteriorly. Abdomen: Obese, normal bowel sound, firm, nontender. No guarding or rebound. Extremities: 1+ edema in the lower extremity bilaterally. No clubbing or cyanosis. Assessment & Plan Assessment/Plan (1) RUTH (acute kidney injury): PLAN: The patient has normal as of 2019. Serum creatinine was 0.72 mg/dL then. The patient was admitted on 02/10/2022 with serum creatinine of 3.58 mg/dL. There has been further progression of RUTH. I still think that RUTH from ATN related to severe sepsis. Urine output has declined with soft BP although he is not yet on IV vasopressor. Plan is for the patient be transferred to tertiary care [facility] for nephrostomy tube. The patient may still need dialysis although there is no urgent need since potassium and acidosis has improved. (2) Metabolic acidosis: PLAN: Acidosis is most likely secondary to RUTH. Serum bicarbonate level has improved from 4 mmol/L up to 14 mmol/L in less than 24 hours. Continue bicarbonate drip for now until serum bicarbonate level is consistently above 20 mmol/L. (3) Hyperkalemia: PLAN: The patient had mild hyperkalemia with potassium level 5.5 mmol/L. This is secondary to RUTH and severe acidosis. Potassium level has improved and is better today at 4.3 mmol/L. We will continue to monitor. (4) Severe sepsis with acute organ dysfunction: PLAN: The patient is being treated for complicated UTI. Antimicrobial is appropriately dosed for his renal function. (5) Hydronephrosis: PLAN: The patient has bilateral hydronephrosis. He does have multiple nephrolithiasis bilaterally. However, these are intrarenal kidney stones. I reviewed ultrasound with radiologist yesterday. There is no ureteral obstruction. Suspect hydronephrosis is chronic. He has been seen by urologist who is recommending nephrostomy tube placement. The patient will be transferred to tertiary care center for nephrostomy tube placement.
--- NOTE | 2022-02-13 13:14 | PCM.PN.ID ---
Physical Exam Narrative On vent, worsening Cr, transfer planned for neph tube placement Const Constitutional Narrative: intubated, sedated Resp clear to auscultation bilaterally Effort and Inspection: mechanically ventilated Cardio regular rate and regular rhythm GI soft to palpation and non-tender Skin no rashes or lesions noted ID ID: Route of nutrition/ use of supplements: [] Nutritional Intake: [] IV Site: [] [place] Catheter: [] Assessment & Plan Assessment/Plan (1) Severe sepsis with acute organ dysfunction: PLAN: Complicated by RUTH. Imaging shows bilateral renal stones and hydro. Urology recommends transfer, now in process. Ucx with alpha strep and now also growing 1-10k enterococcus (suspect not a true pathogen). Cont cefepime, adjusted dose due to worsening GFR. Neph consulted. Now intubated. Would avoid further aminoglycosides given his RUTH. Small scrotal wound, seen by wound care. Will follow (2) Paraplegia: (3) Complicated urinary tract infection:
--- NOTE | 2022-02-13 16:08 | NURSING ---
[facility] at bedside to transfer patient to [facility] for continued care.
--- NOTE | 2022-02-13 16:54 | DS.PCM_ITS ---
Providers Date of Admission: 02/10/22 Date of Discharge: 02/13/22 Primary Care Physician: Dr. Cameron Romero, Consultations 02/11/22 11:39 Consult: Infectious Disease Routine Consulting Provider: Luis Amador Reason for Consult: Recurrent UTI, Suprapubic cath, Spina bifida EMERGENT Consult: No MD Notified: Yes Date Notified: 02/11/22 Time Notified: 11:39 Method of Notification: Verbal 02/11/22 12:39 Consult: Urology Routine Consulting Provider: Michele Cohen Reason for Consult: RUTH, stones and hydro bilaterally EMERGENT Consult: No MD Notified: Yes Date Notified: 02/11/22 Time Notified: 15:05 Method of Notification: Answering Service 02/11/22 12:41 Consult: Onc/Wound/academic records specialist Routine Comment: Reason for Consult:: sacral wound 02/11/22 14:09 Consult: Youth Accommodation Support Worker / Pulmonary Medicine Routine Consulting Provider: Pulmonary Medicine [facility] Reason for Consult: acute on chr resp failure/ventilatory failure EMERGENT Consult: No MD Notified: Yes Date Notified: 02/11/22 Time Notified: 14:09 Method of Notification: Verbal 02/12/22 06:56 Consult: Nephrology Routine Consulting Provider: Cruz Ocampo Reason for Consult: Acute renal failure EMERGENT Consult: No MD Notified: Yes Date Notified: 02/12/22 Time Notified: 08:07 Method of Notification: Answering Service Reason For Visit: SEPSIS, COMPLICATED UTI, RUTH Diagnosis Discharge Diagnosis (1) Severe sepsis with acute organ dysfunction: Status: Acute Code(s): A41.9 - Sepsis, unspecified organism; R65.20 - Severe sepsis without septic shock (2) Paraplegia: Status: Chronic Code(s): G82.20 - Paraplegia, unspecified (3) Complicated urinary tract infection: Status: Acute Code(s): N39.0 - Urinary tract infection, site not specified Plan 1. Sepsis secondary to urinary tract infection from indwelling suprapubic Bonilla catheter-continue present antibiotic coverage per infectious diseases #2 acute respiratory failure-patient is now on a ventilator, critical care is p articipating in his care #3 acute kidney injury etiology unclear-nephrology is participating in his care, he will be given IV fluids and labs will be monitored #4 spina bifida with paraplegia-complicates care, management, recovery, and prognosis #5 Acute metabolic acidosis-secondary to acute sepsis, nephrology is participating in his care, he is currently on a bicarb drip #6 bilateral hydronephrosis #7 morbid obesity Medications at Discharge Home Medications spironolactone 25 mg tablet 25 mg PO DAILY water pill 30 days #30 tabs 08/30/18 furosemide 40 mg tablet 40 mg PO DAILY water pill 30 days #30 tabs 09/07/18 ferrous gluconate 240 mg (27 mg iron) tablet (Ferate) 27 mg PO BID iron 02/10/22 Hospital Course Operations None Procedures Intubation Summary of Care Provided Minutes Spent on Discharge: 32 Hospital Course: This 26-year-old white male was seen in the emergency room at [facility] with complaints of feeling unwell with feverish symptoms although he denied any documented fever at home. He also complained of urinary symptoms such as foul-smelling urine. Patient has a chronic suprapubic catheter in place due to his spina bifida. Patient also complained of diarrhea symptoms and had been taking Pepto-Bismol at home. Work-up in the emergency room revealed the patient be tachycardic, white blood cell count was elevated at 17.8, urinalysis indicated a urinary tract infection and the patient's creatinine was elevated at 3.58 with a BUN of 86. Patient was admitted to [facility], he was seen in consultation by infectious diseases and pulmonary medicine, he was placed on IV antibiotics and seen in consultation by urology. Kidney ultrasound revealed bilateral hydronephrosis, this however was felt to be chronic in nature and patient was seen by nephrology and given IV fluids. Patient had respiratory failure during his admission due to muscle fatigue and had to be transferred to the ICU and intubated. Patient was noted to be acidotic and a bicarb drip was instituted and adjusted by nephrology. Patient's creatinine however continued to elevate and it was recommended that the patient undergo insertion of a nephrostomy tube to see if this would improve his creatinine. Unfortunately, services were not available at [facility] for insertion of the nephrostomy tube and the patient had to be transferred to [facility] in [place] for further care. On 02/13/2022, patient was seen and examined:Patient is somnolent but responds to some questions by nodding his head, he remains on the ventilator HEENT head/scalp atraumatic and moist oral mucous membranes Neck no JVD Resp normal respiratory effort, no use of accessory muscles and clear to auscultation bilaterally Cardio regular rate, regular rhythm, S1 normal heart sound and S2 normal heart sound GI normal to inspection, nondistended, normoactive bowel sounds, soft to palpation and non-tender Extremity Extremity Narrative: Severe muscle atrophy is noted over the lower extremities Neuro CN's II-XII intact bilaterally Neuro Narrative: Patient has severe muscle atrophy of the lower extremities, patient is paraplegic Psych Psych Narrative: Patient is somnolent and on the ventilator On 02/13/2022, patient was transferred to [facility] in [facility] for further care. Patient was in stable condition at the time of his discharge Weight / BMI Weight Weight: 120 kg Body Mass Index (BMI) 46.7 ABG / Lab / Microbiology Data Result Diagrams: 02/13/22 04:05 02/13/22 04:05 Laboratory: Laboratory Results - last 24 hr 02/10/22 20:18: Urine Color Brown, Urine Clarity Cloudy, Urine pH 8.0, Ur Specific [place] 1.015, Urine Protein 500 H, Urine Glucose (UA) Normal, Urine Ketones 5 H, Urine Occult Blood 250 H, Urine Nitrite Positive H, Urine Bilirubin Negative, Urine Urobilinogen Normal, Ur Leukocyte Esterase 500 H, Urine RBC > 100 SEEN, Urine WBC >100 SEEN, Ur Squamous Epith Cells 0 SEEN, Urine Bacteria 3+, Urine Mucus 0 SEEN 02/12/22 15:30: Sodium 140, Potassium 5.1, Chloride 115 H, Carbon Dioxide 7.0 L* , BUN 96 H, Creatinine 4.17 H, Estim Creat Clear Calc 20.37, Est GFR (MDRD) Af Amer 22 L, Est GFR (MDRD) Non-Af 18 L, BUN/Creatinine Ratio 23.0 H, Glucose 91, Calcium 8.5, Phosphorus 8.6 H, Albumin 1.3 L 02/13/22 04:05: WBC 15.2 H, RBC 4.31 L, Hgb 11.2 L, Hct 35.8 L, MCV 83.1, MCH 26.0 L, MCHC 31.3 L, RDW Std Deviation 53.8 H, RDW Coeff of Francisco 17.6 H, Plt Count 468 H, MPV 9.4, Immature Gran % (Auto) 3.900 H, Neut % (Auto) 69.4, Lymph % (Auto) 14.0 L, [place] % (Auto) 7.1, Eos % (Auto) 4.7, Baso % (Auto) 0.9, Absolute Neuts (auto) 10.5 H, Absolute Lymphs (auto) 2.13, Nucleated RBC % 0 02/13/22 04:05: Sodium 139, Potassium 4.3, Chloride 110 H, Carbon Dioxide 14.0 L , Anion Gap 15, BUN 91 H, Creatinine 4.47 H, Estim Creat Clear Calc 19.00, Est GFR (MDRD) Af Amer 20 L, Est GFR (MDRD) Non-Af 17 L, BUN/Creatinine Ratio 20.4 H , Glucose 122 H, Calcium 8.0 L 02/13/22 08:30: PT 16.1 H, INR 1.3, APTT 34.7 Microbiology: Microbiology 02/10/22 20:18 Urine Catheter - Bonilla Urine Culture - Preliminary Alpha Hemolytic Streptococcus GPC Poss Enterococcus sp 02/12/22 05:40 Sputum, Tracheal Aspirate Gram Stain - Final 02/12/22 05:40 Sputum, Tracheal Aspirate Respiratory Culture - Preliminary Presumptive C albicans 02/10/22 20:30 Blood Culture (Wb) - Anticubital Right Blood Culture - Preliminary No growth in 48 hours. 02/10/22 20:35 Blood Culture (Wb) - Anticubital Left Blood Culture - P reliminary No growth in 48 hours. 02/10/22 19:45 Stool C. difficile DNA Amplification - Final Meaningful Use Info Meaningful Use Diagnoses (Choose all that apply): None applicable Discharge Plan Admission Admit Date/Time: 02/10/22 21:36 Attending Provider: Cameron Mclean Primary Care Provider: Cameron Romero Consulting Providers: Maureen Ferguson ; Luis Amador ; Armaan Ayoub ; Laurent Bernal ; Twin Lucas ; Frank Desouza ; Karen Sierra NP ; Michele Cohen ; Reuben Fajardo ; Cruz Oacmpo Discharge Orders/Prescriptions Prescriptions: No Action furosemide 40 mg tablet 40 mg PO DAILY 30 Days Qty: 30 spironolactone 25 mg tablet 25 mg PO DAILY 30 Days Qty: 30 Label Comments: TAKE 1 TABLET BY MOUTH DAILY ferrous gluconate [Ferate] 240 mg (27 mg iron) tablet 27 mg PO BID Label Comments: TAKE 1 TABLET BY MOUTH TWICE DAILY WITH WATER OR JUICE BETWEEN MEALS. Referrals / Follow Up: Cameron Romero DO [Primary Care Provider] - Disposition Disposition (needs filled in before D/C Order can be placed): Acute Care Hospital Charges/Coding Visit Charges Inpatient E&M: 14762 Disch Hosp
== END 2022-02-13 16:05 | disposition short-term general hospital (02) | DRG 698 ==
LOC: ED 21:46 → PCU 22:26 → ICU 02-11 14:49
PROVIDERS: Internal Medicine; Internal Medicine Critical Care Medicine; Internal Medicine Nephrology; Admitting Provider Family Medicine; Emergency Provider Emergency Medicine; PCP Family Medicine; Visit Provider Internal Medicine
DX: T83.510A Infection and inflammatory reaction due to cystostomy catheter, initial encounter (principal); A41.9 Sepsis, unspecified organism; N17.0 Acute kidney failure with tubular necrosis; J96.02 Acute respiratory failure with hypercapnia; R65.20 Severe sepsis without septic shock; E87.4 Mixed disorder of acid-base balance; E87.29 Other acidosis; N13.6 Pyonephrosis; G82.20 Paraplegia, unspecified; Z68.42 Body mass index [BMI] 45.0-49.9, adult; I50.42 Chronic combined systolic (congestive) and diastolic (congestive) heart failure; N39.0 Urinary tract infection, site not specified; E87.21 Acute metabolic acidosis; I27.29 Other secondary pulmonary hypertension; I11.0 Hypertensive heart disease with heart failure; Q05.9 Spina bifida, unspecified; E66.01 Morbid (severe) obesity due to excess calories; G47.33 Obstructive sleep apnea (adult) (pediatric); D50.9 Iron deficiency anemia, unspecified; R19.7 Diarrhea, unspecified; E87.5 Hyperkalemia; M41.9 Scoliosis, unspecified; I89.0 Lymphedema, not elsewhere classified; Z23 Encounter for immunization; B95.2 Enterococcus as the cause of diseases classified elsewhere
CPT/HCPCS: 31500; 31720; 36415; 36600; 71045; 76770; 80048; 80053; 80069; 81001; 82550; 82570; 82728; 82803; 82962; 83605; 84300; 84478; 85025; 85027; 85610; 85730; 87040; 87070; 87077; 87086; 87088; 87186; 87205; 87493; 94002; 94003; 97803; 99251; 99285; G0008; J7030; 90686; A4216; G0463

== ENCOUNTER 2022-09-17 01:29 | Inpatient (IN) | payer MEDICARE, MEDICAID, SELFPAY ==
[2022-09-17] VITALS (31 sets, daily range): BP systolic 80–140; BP diastolic 28–94; PULSE 79–132; RESP 13–38; TEMP 36.4–37.8; O2SAT 89–98; BMI 43.0; BMI 40.7
--- NOTE | 2022-09-17 01:44 | EDS_ITS ---
HPI History of Present Illness Chief Complaint: General Illness Detail of Chief Complaint: Fever Informant: patient Narrative Narrative: Patient presents from [facility] with complaint of fever and chills that started around 7 PM yesterday. Patient temp went up to 100.6. Patient apparently also had low blood pressure however he has history of sepsis a year ago and since that time he had low blood pressure and is on midodrine. Patient has history of spina bifida. Patient has had a cough for about a week. Also has pressure ulcers. He had some loose stools today. He denies chest pain or abdominal pain. Patient is a dialysis patient. He has a port in his right chest and a fistula in his left arm. 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, stage 3 Right-sided heart failure Secondary pulmonary arterial hypertension Spina bifida Systolic CHF Umbilical hernia Home Medications acetaminophen 325 mg tablet 650 mg PO Q4H PRN PAIN/FEVER 09/17/22 [History Last Taken Unknown] acetaminophen 650 mg rectal suppository 650 mg CO Q4H PRN PAIN/FEVER 09/17/22 [History Last Taken Unknown] albuterol sulfate 2.5 mg/3 mL (0.083 %) solution for nebulization 2.5 mg inhalation Q4H PRN Shortness Of Breath 09/17/22 [History Last Taken Unknown] aluminum-magnesium hydroxide 225 mg-200 mg/5 mL oral suspension 30 ml PO Q4H PRN PRN GI DISTRESS 09/17/22 [History Last Taken Unknown] bisacodyl 10 mg rectal suppository 10 mg CO DAILY PRN Constipation 09/17/22 [History Last Taken Unknown] dextrose 40 % oral gel (Glucose Gel) 15 g PO Q15M PRN Hypoglycemia 09/17/22 [History Last Taken Unknown] ferrous sulfate 325 mg (65 mg iron) tablet 325 mg PO DAILY 09/17/22 [History Last Taken Unknown] gabapentin 100 mg capsule 100 mg PO DAILY 09/17/22 [History Last Taken Unknown] guaifenesin 200 mg/5 mL oral liquid 400 mg PO Q4H PRN Cough 09/17/22 [History Last Taken Unknown] guaifenesin 600 mg tablet, extended release 12 hr (Mucinex) 600 mg PO BID 09/17/22 [History Last Taken Unknown] heparin, porcine (PF) 5,000 unit/mL injection syringe 5,000 unit subcut Q8H 09/17/22 [History Last Taken Unknown] hydrocortisone 10 mg tablet 10 mg PO BID 09/17/22 [History Last Taken Unknown] hydrocortisone 5 mg tablet 5 mg PO DAILY 09/17/22 [History Last Taken Unknown] loperamide 2 mg tablet 2 mg PO Q6H PRN Diarrhea 09/17/22 [History Last Taken Unknown] magnesium hydroxide 400 mg/5 mL oral suspension (Milk of Magnesia) 400 mg PO DAILY PRN Constipation 09/17/22 [History Last Taken Unknown] melatonin 3 mg tablet 3 mg PO QHS 09/17/22 [History Last Taken Unknown] midodrine 10 mg tablet 20 mg PO TID 09/17/22 [History Last Taken Unknown] pantoprazole 40 mg tablet,delayed release 40 mg PO BID 09/17/22 [History Last Taken Unknown] sertraline 25 mg tablet 25 mg PO DAILY 09/17/22 [History Last Taken Unknown] sodium hypochlorite 0.25 % solution (Dakin's Solution) 1 applic topical DAILY 09/17/22 [History Last Taken Unknown] sodium phosphates 19 gram-7 gram/118 mL enema (Fleet Enema) 118 ml CO DAILY PRN Constipation 09/17/22 [History Last Taken Unknown] trazodone 100 mg tablet 100 mg PO QHS 09/17/22 [History Last Taken Unknown] vitamin B complex-vitamin C-folic acid 0.8 mg tablet (Renal-Adal) 1 tab PO DAILY 09/17/22 [History Last Taken Unknown] Allergy/AdvReac Type Severity Reaction Status Date / Time ampicillin Allergy rash Verified 09/17/22 01:38 cefepime Allergy Hives Verified 09/17/22 01:38 daptomycin Allergy Hives Verified 09/17/22 01:38 fentanyl Allergy Rash Verified 09/17/22 01:38 latex Allergy Hives Verified 09/17/22 01:38 meropenem Allergy rash Verified 09/17/22 01:38 morphine Allergy Hives Verified 09/17/22 01:38 sulbactam [From Unasyn] Allergy Hives Verified 09/17/22 01:38 vancomycin Allergy Hives Verified 09/17/22 01:38 Family History Grandfather Heart disease Father Hypertension Mother Hyperlipidemia Surgical History History of back surgery History of foot surgery History of ventriculoperitoneal shunting S/P cutaneous-vesicostomy S/P ureteral stent placement Status post laser lithotripsy of ureteral calculus Social History household members: family Smoking Status: Never smoker second hand exposure: Yes alcohol intake: never substance use type: does not use ROS ROS ED Review of Systems ROS Unobtainable: other Constitutional Constitutional ED: Reports chills, fever(s) and lethargy; Denies sweats or weight loss Eyes Eyes: Denies blurry vision, change in vision or diplopia ENT ENT ED: Denies rhinorrhea or sore throat Cardiovascular Cardiovascular: Denies chest pain, orthopnea or racing heartbeat Respiratory/Chest Respiratory/Chest: Reports cough and dyspnea on exertion; Denies dyspnea, orthopnea or sputum Gastrointestinal Gastrointestinal: Denies abdominal pain, diarrhea, nausea or vomiting Genitourinary Genitourinary ED: Denies dysuria, hematuria or urinary frequency Musculoskeletal Musculoskeletal: Denies arthralgias, back pain, myalgias or neck pain Integumentary Denies abscess, Abrasions or rash Neurologic Neurologic: Denies headache(s) or weakness Psychiatric Psychiatric: Denies anxiety, depression or suicidal thoughts Endocrine Endocrinology: Denies polydipsia, polyphagia or polyuria Hematologic/Lymphatic Hematologic/Lymphatic: Denies easy bleeding, easy bruising or lymphadenopathy Allergic/Immunologic Allergic/Immunologic ED: Denies mouth swelling, tongue swelling or urticaria EXAM Physical Exam Const Vital Signs: 09/17/22 01:30 09/17/22 01:33 09/17/22 02:11 Temperature 99.4 F H 99.4 F H Temperature Source Oral Oral Pulse Rate 132 H 132 H Respiratory Rate 18 20 H Respiratory Effort Normal Respiratory Pattern Normal Blood Pressure 101/60 101/60 Blood Pressure Mean 73 73 Pulse Ox 94 94 Oxygen Delivery Method Nasal Cannula Nasal Cannula Oxygen Flow Rate (L/min) 2 2 09/17/22 02:33 09/17/22 03:00 Temperature 99.7 F H 99.1 F Temperature Source Oral Oral Pulse Rate 126 H 125 H Respiratory Rate 20 H 20 H Respiratory Effort Respiratory Pattern Blood Pressure 89/57 L 88/48 L Blood Pressure Mean 67 61 Pulse Ox 95 95 Oxygen Delivery Method Room Air Room Air Oxygen Flow Rate (L/min) Positive well nourished and well developed General Appearance ED: well developed and NAD HEENT Reports TM's clear and moist mucous membranes normocephalic and atraumatic; Negative for trauma or tenderness Tympanic Membrane ED: Yes TM's clear Eyes PERRL and EOMs intact bilaterally General Eye ED: Negative for pale conjunctiva or scleral icterus Neck no lymphadenopathy, supple and no JVD General: Negative for tenderness Chest Wall inspection of chest normal and palpation of chest normal Chest: Negative for tenderness Resp normal respiratory effort and clear to auscultation bilaterally Effort and Inspection: Negative for respiratory distress or pain with movement Auscultation: Negative for rhonchi, wheezes or diminished lung sounds Cardio regular rate, regular rhythm, S1 normal heart sound, S2 normal heart sound and no murmurs Peripheral Pulses: pulses 2+ throughout GI normal to inspection, nondistended, normoactive bowel sounds, soft to palpation, non-tender, non-distended and no masses Back/Spine no CVA tenderness and no thoracic nor lumbar tenderness Back/Spine Narrative: Patient has a nephrostomy tube in the right flank. Patient has pressure ulcers to his buttocks with no significant drainage noted. He does have some friable skin. Does have some loose stool on arrival. Extremity normal to inspection General Extremety ED: Negative for edema General Extremity: Negative for edema Neuro oriented x3, CN's II-XII intact bilaterally, no sensory deficits noted and gait normal Sensorium / Orientation: awake, alert, oriented to person, oriented to place and oriented to time Motor Exam: strength 5/5 throughout and strength abnormal Psych mental status grossly normal Skin no rashes or lesions noted and no wounds MDM MDM MDM Narrative Medical decision making narrative: Patient presents with fever and low blood pressure at [facility]. Concern for sepsis. Patient with prior history of sepsis from urine source. He has a nephrostomy tube. His last dialysis was yesterday. Patient also chronically has low blood pressure from what he and his father tell me and has been on midodrine. Patient had fevers and chills and he had a cough for about a week. IV line established. Patient placed on a panel monitor. CBC with differential obtained showed a white count 25,000. Urinalysis obtained from nephrostomy tubes showed 500 leukocyte Estrace and greater than 100 RBCs and WBCs and +4 bacteria. I did send off urine culture. Blood cultures ordered. Patient empirically started on Levaquin IV as he has multiple drug allergies. Chest x-ray on my interpretation shows no evidence of infiltrate although difficult study given patient body habitus. I ordered a liter normal same fluid bolus initially instead of the 30 mL/kg given that he is a dialysis patient and wanted to slowly add fluid as needed. Case discussed with hospitalist will evaluate patient for admission. COVID and flu testing was negative. Lab Data Attestation: I reviewed the patient's lab results. Labs: Laboratory Results - last 24 hr 09/17/22 09/17/22 09/17/22 01:55 01:55 01:55 WBC 25.3 H RBC 3.67 L Hgb 9.5 L Hct 33.0 L MCV 89.9 MCH 25.9 L MCHC 28.8 L RDW Std Deviation 63.7 H RDW Coeff of Francisco 19.8 H Plt Count 479 H MPV 10.3 Immature Gran % (Auto) 0.700 Neut % (Auto) 87.0 H Lymph % (Auto) 5.1 L [place] % (Auto) 4.7 Eos % (Auto) 2.0 Baso % (Auto) 0.5 Absolute Neuts (auto) 22.0 H Absolute Lymphs (auto) 1.29 Nucleated RBC % 0 Platelet Estimate SLT INC Anisocytosis 2+ Sodium 137 Potassium 4.0 Chloride 98 Carbon Dioxide 29.0 Anion Gap 10 BUN 23 H Creatinine 2.38 H Estim Creat Clear Calc 35.69 Est GFR (MDRD) Af Amer 42 L Est GFR (MDRD) Non-Af 35 L BUN/Creatinine Ratio 9.7 L Glucose 129 H Lactic Acid 3.1 H* Calcium 9.2 Total Bilirubin 0.80 AST 22 ALT 16 Alkaline Phosphatase 256 H Total Protein 7.6 Albumin 2.2 L Globulin 5.4 H Albumin/Globulin Ratio 0.4 L Urine Color Urine Clarity Urine pH Ur Specific [place] Urine Protein Urine Glucose (UA) Urine Ketones Urine Occult Blood Urine Nitrite Urine Bilirubin Urine Urobilinogen Ur Leukocyte Esterase Urine RBC Urine WBC Ur Squamous Epith Cells Urine Bacteria Urine Mucus 09/17/22 02:04 WBC RBC Hgb Hct MCV MCH MCHC RDW Std Deviation RDW Coeff of [place] Plt Count MPV Immature Gran % (Auto) Neut % (Auto) Lymph % (Auto) [place] % (Auto) Eos % (Auto) Baso % (Auto) Absolute Neuts (auto) Absolute Lymphs (auto) Nucleated RBC % Platelet Estimate Anisocytosis Sodium Potassium Chloride Carbon Dioxide Anion Gap BUN Creatinine Estim Creat Clear Calc Est GFR (MDRD) Af Amer Est GFR (MDRD) Non-Af BUN/Creatinine Ratio Glucose Lactic Acid Calcium Total Bilirubin AST ALT Alkaline Phosphatase Total Protein Albumin Globulin Albumin/Globulin Ratio Urine Color [place] Urine Clarity Turbid Urine pH 8.0 Ur Specific [place] 1.015 Urine Protein 500 H Urine Glucose (UA) Normal Urine Ketones Negative Urine Occult Blood 250 H Urine Nitrite Negative Urine Bilirubin Negative Urine Urobilinogen Normal Ur Leukocyte Esterase 500 H Urine RBC > 100 SEEN Urine WBC >100 SEEN Ur Squamous Epith Cells 0 SEEN Urine Bacteria 4+ Urine Mucus 0 SEEN Radiography Chest X-Ray - ED: 1 View Diagnostic Testin view chest x-ray obtained interpreted by myself no acute disease process. Discharge Plan Triage Chief Complaint: General Illness ED Provider: [place] Dx/Rx/DC Orders Clinical Impression: Acute UTI, Sepsis, Leukocytosis, Pressure ulcer Prescriptions: No Action hydrocortisone 5 mg Tablet 5 mg PO DAILY Rx Instructions: MORNING WITH 10MNG TABLET acetaminophen 325 mg Tablet 650 mg PO Q4H PRN (Reason: PAIN/FEVER) acetaminophen 650 mg Suppository 650 mg CO Q4H PRN (Reason: PAIN/FEVER) albuterol sulfate 2.5 mg /3 mL (0.083 %) Solution For Nebulization 2.5 mg INHALATION Q4H PRN (Reason: Shortness Of Breath) dextrose [Glucose Gel] 40 % Gel 15 g PO Q15M PRN (Reason: Hypoglycemia) Rx Instructions: until symptoms of low blood sugar are controlled loperamide 2 mg Tablet 2 mg PO Q6H PRN (Reason: Diarrhea) melatonin 3 mg Tablet 3 mg PO QHS magnesium hydroxide [Milk of Magnesia] 400 mg/5 mL Suspension 400 mg PO DAILY PRN (Reason: Constipation) trazodone 100 mg Tablet 100 mg PO QHS bisacodyl 10 mg Suppository 10 mg CO DAILY PRN (Reason: Constipation) pantoprazole 40 mg Tablet,Delayed Release (Dr/Ec) 40 mg PO BID ferrous sulfate 325 mg (65 mg iron) Tablet 325 mg PO DAILY aluminum-magnesium hydroxide 225-200 mg/5 mL Suspension 30 ml PO Q4H PRN PRN (Reason: GI DISTRESS) Fleet Enema 19-7 gram/118 mL Enema 118 ml CO DAILY PRN (Reason: Constipation) sertraline 25 mg Tablet 25 mg PO DAILY Renal-Adal 0.8 mg Tablet 1 tab PO DAILY gabapentin 100 mg Capsule 100 mg PO DAILY hydrocortisone 10 mg Tablet 10 mg PO BID Rx Instructions: MORNING AND EVENING Dakin's Solution 0.25 % Solution 1 applic TOPICAL DAILY midodrine 10 mg Tablet 20 mg PO TID Rx Instructions: do not give last dose of day after 6PM or within 4 hrs of bedtime guaifenesin 200 mg/5 mL Liquid 400 mg PO Q4H PRN (Reason: Cough) heparin, porcine (PF) 5,000 unit/mL Syringe 5,000 unit SUBCUT Q8H guaifenesin [Mucinex] 600 mg Tablet Extended Release 12hr 600 mg PO BID Primary Care Provider: Rebeca Stephenson Referrals: Cameron Romero DO [Med Staff - [facility]] - Disposition Disposition: Acute Care Hospital [facility]
[2022-09-17] MEDS: levoFLOXacin IV 750 MG/150 ML BAG 100 MG IV ×2 (02:07→10:51)
[2022-09-17 02:12] LABS: Mucous, Urine 0 SEEN /hpf (<or=2+); Squamous Epithelial Cells - UA 0 SEEN /hpf (0-5)
[2022-09-17 02:13] LABS: Color, Urine Amber (Yellow); Glucose, Dipstick Normal (Normal); Ketone-Dipstick Negative (Negative); Leukocyte Esterase-Dipstick 500 /ul (Negative); Nitrite-Dipstick Negative (Negative); Occult Blood-Urine 250 /ul (Negative); Protein-Dipstick 500 mg/dl (Negative); Specific Gravity, Urine 1.015 (1.002-1.030); Urine Bilirubin Dipstick Negative (Negative); Urine Clarity Turbid (Clear); Urine Urobilinogen Normal (Normal)
[2022-09-17 02:14] LABS: Absolute Lymphocyte Count 1.29 X10^3/uL (0.83-4.51); Basophil# 0.12 X10^3/uL; Basophil% 0.5 % (0-1); Eosinophil# 0.51 X10^3/uL; Hemoglobin 9.5 g/dL (13.0-16.5); Lymphocyte # 1.29 X10^3/ul (0.83-4.51); Lymphocyte % 5.1 % (19-41); Mean Corp Hgb Conc 28.8 g/dL (32-36); Mean Corpuscular Hgb 25.9 pg (27.0-32.0); Mean Corpuscular Volume 89.9 fL (80-94); Mean Platelet Vol. 10.3 fl (6.2-12.0); Monocyte% 4.7 % (0-10); NRBC Flagged by Analyzer 0 % (0-5); Neutrophil # 22.04 X10^3/uL (2.7-7.7); POSITIVE DIFFERENTIAL YES; Platelet Count 479 K/mm3 (150-450); RBC Distribution Width CV 19.8 % (11.6-14.6); RBC Distribution Width SD 63.7 fl (35.1-43.9); Red Blood Count 3.67 M/mm3 (4.6-6.2); White Blood Count 25.3 K/mm3 (4.4-11.0)
--- NOTE | 2022-09-17 02:15 | RAD_ITS ---
EXAM: XR CHEST, 1 VIEW CLINICAL INDICATION: cough cough TECHNIQUE: Frontal view of the chest. COMPARISON: 02/12/2022. FINDINGS: LUNGS AND PLEURAL SPACES: Lungs are underexpanded. There is no visualized pulmonary infiltrate. No pneumothorax. No effusion. HEART: Unremarkable. Cardiac silhouette not enlarged. MEDIASTINUM: Central airways and mediastinal contour are unremarkable. BONES/JOINTS: There are [place] rods overlying the thoracic spine. There is thoracic kyphosis and levoscoliosis. SOFT TISSUES: Unremarkable. TUBES, LINES AND DEVICES: There is a right internal jugular central venous catheter with its tip overlying the superior vena cava. RAD/Chest 1 View (Portable) IMPRESSION: 1. Underexpansion of the lungs with no visualized pulmonary infiltrate. 2. Central line in place. Electronically Signed: Ace Escamilla MD at 3:41 EDT Reading Location ID and State: [facility] / [place] , Service support ,
[2022-09-17 02:19] LABS: Differential Indicated SCAN CRITERIA MET
[2022-09-17] MEDS: 0.9% Normal Saline 1,000 ML 150 ML IV (02:26)
--- NOTE | 2022-09-17 02:36 | ED.RN ---
PATIENT TAKES MIDODRINE THREE TIMES A DAY FOR HYPOTENSION. FATHER AND PATIENT REPORT HIS BLOOD PRESSURES TYPICALLY RUN IN THE 80-90 RANGE SYSTOLIC.
[2022-09-17 02:38] LABS: Bacteria 4+ /hpf (None Seen); Red Blood Cells-Urine > 100 SEEN /hpf (0-5); White Blood Cells >100 SEEN /hpf (0-5)
[2022-09-17 02:38] LABS: Anisocytosis 2+; Platelet Estimate SLT INC (ADEQ)
[2022-09-17] MEDS: 0.9% Normal Saline 1,000 ML 999 ML IV ×2 (02:50→03:59)
[2022-09-17 03:00] LABS: ALB/GLOB Ratio 0.4 RATIO (0.9-2.4); AST(SGOT) 22 U/L (15-37); Alanine Aminotransfer ALT/SGPT 16 U/L (16-61); Albumin, Serum 2.2 g/dL (3.2-5.0); Alkaline Phosphatase 256 U/L (45-117); Anion Gap 10 (5-15); BUN 23 mg/dL (7-18); BUN/Creat Ratio 9.7 RATIO (10-20); Calcium,Total 9.2 mg/dL (8.5-10.1); Chloride 98 mmol/L (98-107); Creatinine, Serum 2.38 mg/dL (0.70-1.30); EST Glomerular Filtration Rate 35 mL/min (>60); Est Glom Filt Rate - Afr Amer 42 mL/min (>60); Estimated Creatinine Clearance 35.69 ml/min; Globulin 5.4 g/dL (2.2-4.2); Glucose 129 mg/dL (74-106); Protein, Total 7.6 g/dL (6.4-8.2); Sodium Level 137 mmol/L (136-145)
[2022-09-17 03:09] LABS: Lactic Acid 3.1 mmol/L (0.4-1.9)
[2022-09-17 03:47] LABS: Magnesium 1.8 mg/dL (1.6-2.6); Phosphorus 2.6 mg/dL (2.5-4.9)
--- NOTE | 2022-09-17 03:58 | PCM.HP.STD ---
HPI - General General Date of Admission: 09/17/22 Date of Service: 09/17/22 Chief Complaint: Fever, chills, BP lower than his baseline. HPI Narrative The patient is a 26 /o M w/ PMHx: Spina bifida w/ paraplegic immobility syndrome w/ chronic indwelling catheter following w/ Urologist at [facility] w/ history of nephrolithiasis w/ stents in the past, Chronic normocytic anemia/iron deficiency anemia, Chronic Systolic CHF, Hx Pericardial Effusion, Secondary Pulmonary HTN, SOPHIA, Morbid Obesity, Chronic Hypotension on Midodrine with suspected underlying adrenal insufficiency, ESRD on HD who presents to the [facility] ED on 09/17/22 with history of most recent [facility] time for change out in 4 to 6 to 8 weeks locally however its unclear who this has been set up with who now presents with onset of fever and chills starting approximately 7 PM on day prior to presentation with blood pressure mildly decreased from his baseline although his baseline has currently been low since his septic presentation 01/2022 and as noted he has been initiated on midodrine but also on hydrocortisone this is noted suspect adrenal insufficiency concurrently prompting skilled facility transition from the ED for evaluation. Work-up in the ED included T99.4, heart rate 132, BP 101/60, respiratory rate 18, 94% on 2 L nasal cannula with most recent vital sign assessment T99.7, heart rate 126, BP 89/65 with MAP 67, respiratory rate 20, 95% oxygenation reported as on room air, CBC with WC 25.3, hemoglobin 9.5, MCV 89.9, platelet 479 with significant left shift, CMP with BUN/creatinine 23/2.38, glucose 129, alk phos 256 otherwise hepatic profile not marked appearing, lactic acid 3.1, urine noted to be turbid, specific remedy 1.015, protein 500, occult blood 250, negative nitrite, leukocyte Estrace 500 with greater than 100 urine RBCs and WBCs with 4+ urine bacteria, urine culture pending per ED, blood culture x2 pending per ED, rapid COVID and influenza antigen negative, chest x-ray with significant chronic changes with no acute cardiopulmonary findings. In the ED patient administered 1 L normal saline, maintained on maintenance IV fluids and administered Levaquin 750 mg x 1. 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, stage 3 Right-sided heart failure Secondary pulmonary arterial hypertension Spina bifida Systolic CHF Umbilical hernia Home Medications acetaminophen 325 mg tablet 650 mg PO Q4H PRN PAIN/FEVER 09/17/22 [History Last Taken Unknown] acetaminophen 650 mg rectal suppository 650 mg TX Q4H PRN PAIN/FEVER 09/17/22 [History Last Taken Unknown] albuterol sulfate 2.5 mg/3 mL (0.083 %) solution for nebulization 2.5 mg inhalation Q4H PRN Shortness Of Breath 09/17/22 [History Last Taken Unknown] aluminum-magnesium hydroxide 225 mg-200 mg/5 mL oral suspension 30 ml PO Q4H PRN PRN GI DISTRESS 09/17/22 [History Last Taken Unknown] bisacodyl 10 mg rectal suppository 10 mg TX DAILY PRN Constipation 09/17/22 [History Last Taken Unknown] dextrose 40 % oral gel (Glucose Gel) 15 g PO Q15M PRN Hypoglycemia 09/17/22 [History Last Taken Unknown] ferrous sulfate 325 mg (65 mg iron) tablet 325 mg PO DAILY 09/17/22 [History Last Taken Unknown] gabapentin 100 mg capsule 100 mg PO DAILY 09/17/22 [History Last Taken Unknown] guaifenesin 200 mg/5 mL oral liquid 400 mg PO Q4H PRN Cough 09/17/22 [History Last Taken Unknown] guaifenesin 600 mg tablet, extended release 12 hr (Mucinex) 600 mg PO BID 09/17/22 [History Last Taken Unknown] heparin, porcine (PF) 5,000 unit/mL injection syringe 5,000 unit subcut Q8H 09/17/22 [History Last Taken Unknown] hydrocortisone 10 mg tablet 10 mg PO BID 09/17/22 [History Last Taken Unknown] hydrocortisone 5 mg tablet 5 mg PO DAILY 09/17/22 [History Last Taken Unknown] loperamide 2 mg tablet 2 mg PO Q6H PRN Diarrhea 09/17/22 [History Last Taken Unknown] magnesium hydroxide 400 mg/5 mL oral suspension (Milk of Magnesia) 400 mg PO DAILY PRN Constipation 09/17/22 [History Last Taken Unknown] melatonin 3 mg tablet 3 mg PO QHS 09/17/22 [History Last Taken Unknown] midodrine 10 mg tablet 20 mg PO TID 09/17/22 [History Last Taken Unknown] pantoprazole 40 mg tablet,delayed release 40 mg PO BID 09/17/22 [History Last Taken Unknown] sertraline 25 mg tablet 25 mg PO DAILY 09/17/22 [History Last Taken Unknown] sodium hypochlorite 0.25 % solution (Dakin's Solution) 1 applic topical DAILY 09/17/22 [History Last Taken Unknown] sodium phosphates 19 gram-7 gram/118 mL enema (Fleet Enema) 118 ml TX DAILY PRN Constipation 09/17/22 [History Last Taken Unknown] trazodone 100 mg tablet 100 mg PO QHS 09/17/22 [History Last Taken Unknown] vitamin B complex-vitamin C-folic acid 0.8 mg tablet (Renal-Adal) 1 tab PO DAILY 09/17/22 [History Last Taken Unknown] Allergy/AdvReac Type Severity Reaction Status Date / Time ampicillin Allergy rash Verified 09/17/22 01:38 cefepime Allergy Hives Verified 09/17/22 01:38 daptomycin Allergy Hives Verified 09/17/22 01:38 fentanyl Allergy Rash Verified 09/17/22 01:38 latex Allergy Hives Verified 09/17/22 01:38 meropenem Allergy rash Verified 09/17/22 01:38 morphine Allergy Hives Verified 09/17/22 01:38 sulbactam [From Unasyn] Allergy Hives Verified 09/17/22 01:38 vancomycin Allergy Hives Verified 09/17/22 01:38 Family History Grandfather Heart disease Father Hypertension Mother Hyperlipidemia Surgical History (Updated 09/17/22 @ 03:[address] Maureen Ferguson MD) History of back surgery History of foot surgery History of kidney surgery History of ventriculoperitoneal shunting S/P cutaneous-vesicostomy S/P ureteral stent placement Status post laser lithotripsy of ureteral calculus Social History household members: family Smoking Status: Never smoker second hand exposure: Yes alcohol intake: never substance use type: does not use ROS ROS Narrative Admission Review of Systems: CONSTITUTIONAL: No weight loss, + fever, chills, weakness or fatigue. HEENT: Eyes: No visual loss, blurred vision, double vision or yellow sclerae. Ears, Nose, Throat: No hearing loss, sneezing, congestion, runny nose or sore throat. SKIN: + chronic stasis/decub, intertrigo. CARDIOVASCULAR: + Edema. No chest pain, chest pressure or chest discomfort, palpitations, orthopnea, syncopal events. RESPIRATORY: No shortness of breath, cough or sputum, wheezing, hemoptysis. GASTROINTESTINAL: + anorexia, No nausea, vomiting or diarrhea, abdominal pain, melena, BRBPR. GENITOURINARY: + foul smelling urine, nephrostomy tube in place. NEUROLOGICAL: + Spina bifida with chronic paraplegia. No headache, dizziness, syncope, change in bowel or bladder control, seizure. MUSCULOSKELETAL: No muscle, back pain, joint pain or stiffness. HEMATOLOGIC: + anemia, bleeding or bruising. LYMPHATICS: No enlarged nodes. No history of splenectomy. PSYCHIATRIC: No history of depression or anxiety. ENDOCRINOLOGIC: No reports of sweating, cold or heat intolerance. No polyuria or polydipsia. ALLERGIES: + history of hives. Vital Signs Vital Signs Vital Signs: 09/17/22 01:30 09/17/22 01:33 09/17/22 02:11 Temperature 99.4 F H 99.4 F H Temperature Source Oral Oral Pulse Rate 132 H 132 H Respiratory Rate 18 20 H Respiratory Effort Normal Respiratory Pattern Normal Blood Pressure 101/60 101/60 Blood Pressure Mean 73 73 Pulse Ox 94 94 Oxygen Delivery Method Nasal Cannula Nasal Cannula Oxygen Flow Rate (L/min) 2 2 09/17/22 02:33 09/17/22 03:00 Temperature 99.7 F H 99.1 F Temperature Source Oral Oral Pulse Rate 126 H 125 H Respiratory Rate 20 H 20 H Respiratory Effort Respiratory Pattern Blood Pressure 89/57 L 88/48 L Blood Pressure Mean 67 61 Pulse Ox 95 95 Oxygen Delivery Method Room Air Room Air Oxygen Flow Rate (L/min) Weight Weight: 235 lb 0.204 oz Body Mass Index (BMI) 43.0 Physical Exam Narrative Physical Examination: General: Awake, alert, oriented x 3 and cooperative, seated upright in the ED bed, fatigued appearing, no acute distress. Skin: Normal color, normal turgor, no icterus, no cyanosis except for bilateral lower extremity venous stasis skin changes, intertrigo in folds, chronic stasis decubitus ulcers, BL ischial/abdominal/scrotal wounds with dressings in place. HEENT: AT/NC, EOMI, PERRLA, mildly dry MM, no carotid bruits or JVD noted; however, thickened neck makes evaluation difficult. Lungs: Diminished, distant, appropriate effort, no rales, ronchi or wheezing. Heart: Tachycardic with regular rhythm; no gallop, rub audible. Abdomen: Soft, morbidly obese, NTTP, no obvious distention but habitus makes evaluation difficult, distant normal bowel sounds, unable to discern HSM secondary to habitus, nephrostomy tube in place. Extremities: No cyanosis, no clubbing, see skin, 1+ pedal edema to mid juarez, improved from prior evaluations. Neurological: Patient awake, alert, oriented as noted, cognitive function appears baseline intact, confirmed per mother; pupils equally reactive to light and accommodation, cranial nerves grossly normal, chronic significant deficits with paraplegia secondary to underlying spina bifida, strength severely global decreased secondary to acute presentation and underlying chronic comorbidities Psychiatric: Affect appears fatigued, no acute evidence of depressive or anxiety feelings. Results Lab / Micro Data Result Diagrams: 09/17/22 01:55 09/17/22 01:55 Labs: Laboratory Results - last 24 hr 09/17/22 01:55: WBC 25.3 H, RBC 3.67 L, Hgb 9.5 L, Hct 33.0 L, MCV 89.9, MCH 25.9 L, MCHC 28.8 L, RDW Std Deviation 63.7 H, RDW Coeff of Francisco 19.8 H, Plt Count 479 H, MPV 10.3, Immature Gran % (Auto) 0.700, Neut % (Auto) 87.0 H, Lymph % (Auto) 5.1 L, Blair % (Auto) 4.7, Eos % (Auto) 2.0, Baso % (Auto) 0.5, Absolute Neuts (auto) 22.0 H, Absolute Lymphs (auto) 1.29, Nucleated RBC % 0, Platelet Estimate SLT INC, Anisocytosis 2+ 09/17/22 01:55: Sodium 137, Potassium 4.0, Chloride 98, Carbon Dioxide 29.0, Anion Gap 10, BUN 23 H, Creatinine 2.38 H, Estim Creat Clear Calc 35.69, Est GFR (MDRD) Af Amer 42 L, Est GFR (MDRD) Non-Af 35 L, BUN/Creatinine Ratio 9.7 L, Glucose 129 H, Calcium 9.2, Total Bilirubin 0.80, AST 22, ALT 16, Alkaline Phosphatase 256 H, Total Protein 7.6, Albumin 2.2 L, Globulin 5.4 H, Albumin/Globulin Ratio 0.4 L 09/17/22 01:55: Lactic Acid 3.1 H* 09/17/22 02:04: Urine Color [place], Urine Clarity Turbid, Urine pH 8.0, Ur Specific [place] 1.015, Urine Protein 500 H, Urine Glucose (UA) Normal, Urine Ketones Negative, Urine Occult Blood 250 H, Urine Nitrite Negative, Urine Bilirubin Negative, Urine Urobilinogen Normal, Ur Leukocyte Esterase 500 H, Urine RBC > 100 SEEN, Urine WBC >100 SEEN, Ur Squamous Epith Cells 0 SEEN, Urine Bacteria 4+, Urine Mucus 0 SEEN Micro: Microbiology 09/17/22 02:05 Nasal Secretion SARS-CoV-2 & FLU Antigen (Rapid) - Final Assessment & Plan Assessment/Plan (1) Sepsis: PLAN: Plan The patient is a 26 /o M w/ PMHx: Spina bifida w/ paraplegic immobility syndrome w/ chronic indwelling catheter following w/ Urologist at [facility] w/ history of nephrolithiasis w/ stents in the past, Chronic normocytic anemia/iron deficiency anemia, Chronic Systolic CHF, Hx Pericardial Effusion, Secondary Pulmonary HTN, SOPHIA, Morbid Obesity, Chronic Hypotension on Midodrine with suspected underlying adrenal insufficiency, ESRD on HD who presents to the [facility] ED on 09/17/22 with history of most recent [facility] at that time for change out in 4 to 6 to 8 weeks locally however its unclear who this has been set up with who now presents with onset of fever and chills starting approximately 7 PM on day prior to presentation with blood pressure mildly decreased from his baseline. #1. Acute Sepsis (tachycardia, hypotension with systolic less than 90, tachypnea, positive source of infection, lactic acidosis) with chronic nephrostomy tube: Will admit patient to the ICU to be cautious although patient does tend to run low, continue judicious hydration given underlying CHF history with lactic acid trending per facility protocol, maintain on cardiac monitoring, maintain on IV Levaquin given allergies and review of most recent culture with pending Cx with de-escalation/alteration of antibiotic therapy once this results, will stress dose with IV hydrocortisone, blood culture x2 pending per ED, will request IR consultation for nephrostomy change, PT/OT/CM consultations for discharge planning, will consult pen and pencil repairer per protocol. #2. ESRD: Admission BUN/creatinine 23/2.38, following with Dr. Tinsley, noted dialysis days Wednesday, Wednesday, Wednesday, Wednesday last note noted 02/13/2022 admission with [facility] at that time felt secondary to ATN secondary to severe sepsis transferred at that time to tertiary care center for nephrostomy tube placements with noted bilateral hydronephrosis eventually worsening and transitioning to dialysis, will continue home HD regimen, nephrology consulted, pending. #3. Chronic hypotension with suspected underlying adrenal insufficiency: Not clear on patient medical history from skilled facility but patient is maintained on chronic midodrine as well as hydrocortisone oral daily regimen thus suspect underlying adrenal insufficiency, will continuemidodrine and given presentation will stress dose with IV hydrocortisone with transition back to oral regimen once improved. #5. Chronic systolic CHF: 09/30/2018 echocardiogram with normal LV size, LV systolic function normal, EF 55%, moderate concentric LVH, no evidence of any pericardial effusion. Patient with concurrent history of hypertension on midodrine therapy which complicates patient underlying CHF history, will continue aspirin, not on statin therapy, not on beta-ángel nor RAMIRO inhibitor/ARB given progressive renal disease as well as hypertension. We will continue judicious hydration given his history. #5. Chronic normocytic anemia/iron deficiency anemia: Admission hemoglobin 9.5, baseline hemoglobin more recently noted to be 8-9, most recent prior to this 09/14/2022 hemoglobin 8.2 however in 01/2022 hemoglobin 1112 at that time but has vacillated over the years, repeat CBC in AM, continue supplementation. #6. Spina bifida w/ paraplegic: Patient w/ as noted chronic indwelling catheter, following w/ Urologist at [facility] w/ history of nephrolithiasis w/ stents, 01/2022 admission as noted with eventual transfer for nephrostomy tube placements with eventual end-stage renal disease requiring dialysis. Frequent position changes. PT, OT consulted. #7. Chronic bilateral lower extremity edema: Patient from prior records frequently sleeping upright in a chair with poor food choices heavy and salts, will place neck ramiro wraps, elevate bilateral lower extremity, improved from prior evaluations. #8. Morbid Obesity: Weight loss and lifestyle changes encouraged. #9. Chronic pressure ulcers: Frequent position changes, barrier cream, continue Dakin's solution with packing, wound RN consultation. #10. SOPHIA: We will continue CPAP nightly. #11. Anxiety and depression: We will continue patient home sertraline regimen. #12. GERD: We will continue patient home PPI. #13. DVT prophylaxis: Heparin. #14. CODE STATUS: Full code per facility paperwork. Admission Evaluation Time spent evaluating chart, patient history, patient evaluation, care planning and discussion with specialists: 75 minutes. Charges/Coding Visit Charges Inpatient E&M: 54066 Init Hosp L3 Procedures Hospitalists Procedures: 90320 Advncd Care Plan 30 Min
--- NOTE | 2022-09-17 04:25 | RAD_ITS ---
PROCEDURE: Right nephrostomy tube exchange. DATE OF EXAMINATION: September 17, 2022. INDICATION: Male, 26 years old. Spina bifida. Renal infection. PHYSICIAN: Dr. Alexander Miller FLUOROSCOPY TIME (if supplied): (10 seconds) minutes/seconds. 2 images were submitted. CONSENT: The risks, benefits and alternatives to the procedure were explained to the patient, and the patient agreed to the procedure and signed the consent. Procedure: The indwelling right sided 10 [place] nephrostomy catheter was removed. Over a Amplatz Super Stiff guidewire, a 10 [place] percutaneous nephrostomy catheter was placed. Good drainage was obtained. The patient tolerated the procedure well. RAD/Nephrostomy Tube Exchange IMPRESSION: Exchange of the right 10 [place] percutaneous nephrostomy catheter. Electronically Signed: Jesus Alberto Munoz MD at 12:17 EDT ,
[2022-09-17] MEDS: 0.9% Normal Saline 1,000 ML 125 ML IV (05:53)
[2022-09-17] MEDS: Heparin Injection (Vial) 5,000 UNIT/ML VIAL 5000 UNIT SC ×3 (05:53→21:44)
[2022-09-17] MEDS: Hydrocortisone Sod Succinate 100 MG/2 ML Vial IV ×3 (05:53→21:44)
[2022-09-17] MEDS: 0.9% Saline Lock 10 ML Syringe IV ×2 (06:05→14:17)
[2022-09-17] MEDS: levoFLOXacin 750 MG Tablet PO (06:06)
[2022-09-17 06:09] LABS: Reflex Lactate? Y
[2022-09-17 06:21] LABS: Absolute Lymphocyte Count 1.45 X10^3/uL (0.83-4.51); Absolute Neutrophil Count 20.5 X10^3/uL (2.0-7.7); Basophil# 0.09 X10^3/uL; Basophil% 0.4 % (0-1); Eosinophil# 0.51 X10^3/uL; Eosinophils% 2.2 % (0-5); Hematocrit 29.6 % (40-54); Hemoglobin 8.5 g/dL (13.0-16.5); Lymphocyte # 1.45 X10^3/ul (0.83-4.51); Lymphocyte % 6.2 % (19-41); Mean Corp Hgb Conc 28.7 g/dL (32-36); Mean Corpuscular Volume 90.5 fL (80-94); Mean Platelet Vol. 10.1 fl (6.2-12.0); Monocyte# 0.69 X10^3/uL; Monocyte% 2.9 % (0-10); NRBC Flagged by Analyzer 0 % (0-5); Neutrophil # 20.49 X10^3/uL (2.7-7.7); Neutrophil % 87.4 % (47-70); POSITIVE DIFFERENTIAL YES; Platelet Count 439 K/mm3 (150-450); RBC Distribution Width CV 19.7 % (11.6-14.6); Red Blood Count 3.27 M/mm3 (4.6-6.2); White Blood Count 23.5 K/mm3 (4.4-11.0)
[2022-09-17 06:23] LABS: Differential Indicated SCAN CRITERIA MET
--- NOTE | 2022-09-17 06:31 | EX.PCM.CONCC ---
Assessment & Plan Assessment/Plan (1) Sepsis: PLAN: Plan RECOMMENDATIONS: 1. Continue broad-spectrum antimicrobials, pending infectious work-up. 2. Continue stress dose steroids for now. 3. Continue scheduled midodrine. 4. Consider nephrostomy tube exchange. 5. Wean supplemental oxygen for saturations greater than 90%. 6. Encourage incentive spirometer use. 7. Initiate nocturnal BiPAP therapy, given history of SOPHIA. IMPRESSIONS: 1. Sepsis The patient presented with sepsis due to probable urinary tract source of infection with acute sepsis related organ dysfunction as evidenced by lactic acidemia and persistent hypotension. The patient has stabilized from a hemodynamic perspective. He does have a history of questionable adrenal insufficiency and chronic hypotension, requiring scheduled midodrine. The patient currently has a nephrostomy tube in place, raising the possibility for a complicated UTI. At this time, agree with exchanging the nephrostomy tube. Continue empiric broad-spectrum antimicrobials, pending infectious work-up. The patient will be maintained on scheduled midodrine along with stress dose steroids, pending further clinical improvement. 2. End-stage renal disease on hemodialysis Nephrology consultation pending to assist with hemodialysis needs. 3. Relative adrenal insufficiency with persistent/chronic hypotension Continue baseline midodrine regimen. Agree with continuing hydrocortisone for now pending improvement in clinical status. 4. History of congestive heart failure/anemia/spina bifida with paraplegia/obesity/obstructive sleep apnea Complicates care, management, recovery and prognosis. Continue home supportive measures. Initiate nocturnal BiPAP therapy with sleep. This note was generated with [employer] dictation software. It may contain incorrect words, spelling, and punctuation that were not noted in checking the note before signing. HPI Consult Data Date of Consult: 09/18/22 HPI Narrative Reason for Consultation: Sepsis HPI Narrative: The patient is a 26-year-old male, with a history as outlined below, who presented to the emergency department on September 17 via EMS with fevers, chills and hypotension. The patient has a complex medical history including baseline spina bifida with immobility, end-stage renal disease on hemodialysis, anemia, chronic congestive heart failure, obstructive sleep apnea, chronic hypotension, and adrenal insufficiency. The patient recently underwent nephrostomy tube placement approximately 6 weeks ago at [facility]. The patient currently resides at a senior living facility and presented to the hospital with multiple decubitus wounds as well. The patient reported that his blood pressure at his baseline typically runs 90 to 110 mmHg systolic. On presentation to the emergency department, the patient was noted to have a low-grade fever of 99.4 ?F. He was tachycardic and tachypneic. Presenting blood pressure was documented to be 101/60 mmHg. Initial laboratory evaluation revealed a white blood cell count of 25,000. Chemistry profile was notable for a creatinine of 2.38 with a lactate of 3.1. Urinalysis was notable for leukocyte Estrace, white blood cells and 4+ urine bacteria. Chest x-ray demonstrated no acute cardiopulmonary process. The patient did receive supplemental IV fluid hydration and was initiated on broad-spectrum antimicrobials. The patient was admitted to the medical intensive care unit for further management. [facility] Medical History (Updated 09/17/22 @ 12:[address] 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, stage 3 Right-sided heart failure Secondary pulmonary arterial hypertension Spina bifida Systolic CHF Umbilical hernia Home Medications acetaminophen 325 mg tablet 650 mg PO Q4H PRN PAIN/FEVER 09/17/22 [History Last Taken Unknown] acetaminophen 650 mg rectal suppository 650 mg NH Q4H PRN PAIN/FEVER 09/17/22 [History Last Taken Unknown] albuterol sulfate 2.5 mg/3 mL (0.083 %) solution for nebulization 2.5 mg inhalation Q4H PRN Shortness Of Breath 09/17/22 [History Last Taken Unknown] aluminum-magnesium hydroxide 225 mg-200 mg/5 mL oral suspension 30 ml PO Q4H PRN PRN GI DISTRESS 09/17/22 [History Last Taken Unknown] bisacodyl 10 mg rectal suppository 10 mg NH DAILY PRN Constipation 09/17/22 [History Last Taken Unknown] dextrose 40 % oral gel (Glucose Gel) 15 g PO Q15M PRN Hypoglycemia 09/17/22 [History Last Taken Unknown] ferrous sulfate 325 mg (65 mg iron) tablet 325 mg PO DAILY 09/17/22 [History Last Taken Unknown] gabapentin 100 mg capsule 100 mg PO DAILY 09/17/22 [History Last Taken Unknown] guaifenesin 200 mg/5 mL oral liquid 400 mg PO Q4H PRN Cough 09/17/22 [History Last Taken Unknown] guaifenesin 600 mg tablet, extended release 12 hr (Mucinex) 600 mg PO BID 09/17/22 [History Last Taken Unknown] heparin, porcine (PF) 5,000 unit/mL injection syringe 5,000 unit subcut Q8H 09/17/22 [History Last Taken Unknown] hydrocortisone 10 mg tablet 10 mg PO BID 09/17/22 [History Last Taken Unknown] hydrocortisone 5 mg tablet 5 mg PO DAILY 09/17/22 [History Last Taken Unknown] loperamide 2 mg tablet 2 mg PO Q6H PRN Diarrhea 09/17/22 [History Last Taken Unknown] magnesium hydroxide 400 mg/5 mL oral suspension (Milk of Magnesia) 400 mg PO DAILY PRN Constipation 09/17/22 [History Last Taken Unknown] melatonin 3 mg tablet 3 mg PO QHS 09/17/22 [History Last Taken Unknown] midodrine 10 mg tablet 20 mg PO TID 09/17/22 [History Last Taken Unknown] pantoprazole 40 mg tablet,delayed release 40 mg PO BID 09/17/22 [History Last Taken Unknown] sertraline 25 mg tablet 25 mg PO DAILY 09/17/22 [History Last Taken Unknown] sodium hypochlorite 0.25 % solution (Dakin's Solution) 1 applic topical DAILY 09/17/22 [History Last Taken Unknown] sodium phosphates 19 gram-7 gram/118 mL enema (Fleet Enema) 118 ml NH DAILY PRN Constipation 09/17/22 [History Last Taken Unknown] trazodone 100 mg tablet 100 mg PO QHS 09/17/22 [History Last Taken Unknown] vitamin B complex-vitamin C-folic acid 0.8 mg tablet (Renal-Adal) 1 tab PO DAILY 09/17/22 [History Last Taken Unknown] Allergy/AdvReac Type Severity Reaction Status Date / Time ampicillin Allergy rash Verified 09/17/22 01:38 cefepime Allergy Hives Verified 09/17/22 01:38 daptomycin Allergy Hives Verified 09/17/22 01:38 fentanyl Allergy Rash Verified 09/17/22 01:38 latex Allergy Hives Verified 09/17/22 01:38 meropenem Allergy rash Verified 09/17/22 01:38 morphine Allergy Hives Verified 09/17/22 01:38 sulbactam [From Unasyn] Allergy Hives Verified 09/17/22 01:38 vancomycin Allergy Hives Verified 09/17/22 01:38 Family History Grandfather Heart disease Father Hypertension Mother Hyperlipidemia Surgical History History of back surgery History of foot surgery History of kidney surgery History of ventriculoperitoneal shunting S/P cutaneous-vesicostomy S/P ureteral stent placement Status post laser lithotripsy of ureteral calculus Social History household members: family Smoking Status: Never smoker second hand exposure: Yes alcohol intake: never substance use type: does not use ROS ROS Narrative 10 systems reviewed with pertinent positives as noted in the HPI above. Physical Exam Const alert and no apparent distress General Appearance: cooperative Nutritional Appearance: obese HEENT normocephalic and head/scalp atraumatic Eyes PERRL, EOMs intact bilaterally and conjunctivae normal Neck supple General: trachea midline Chest inspection of chest normal Resp normal respiratory effort Auscultation: diminished lung sounds; Negative for rales, rhonchi or wheezes Cardio S1 normal heart sound and S2 normal heart sound Rate: tachycardic GI normal to inspection, nondistended, normoactive bowel sounds Extremity General Extremity: edema; Negative for clubbing Skin General Skin Exam: venous stasis and dermatitis Neuro oriented x3 and no focal motor deficits Neuro Narrative: Baseline paraplegia Psych cooperative and affect normal Lab / Micro Data Result Diagrams: 09/17/22 06:05 09/17/22 06:05 Labs: Laboratory Results - last 24 hr 09/17/22 01:55: WBC 25.3 H, RBC 3.67 L, Hgb 9.5 L, Hct 33.0 L, MCV 89.9, MCH 25.9 L, MCHC 28.8 L, RDW Std Deviation 63.7 H, RDW Coeff of Francisco 19.8 H, Plt Count 479 H, MPV 10.3, Immature Gran % (Auto) 0.700, Neut % (Auto) 87.0 H, Lymph % (Auto) 5.1 L, [place] % (Auto) 4.7, Eos % (Auto) 2.0, Baso % (Auto) 0.5, Absolute Neuts (auto) 22.0 H, Absolute Lymphs (auto) 1.29, Nucleated RBC % 0, Platelet Estimate SLT INC, Anisocytosis 2+ 09/17/22 01:55: Sodium 137, Potassium 4.0, Chloride 98, Carbon Dioxide 29.0, Anion Gap 10, BUN 23 H, Creatinine 2.38 H, Estim Creat Clear Calc 35.69, Est GFR (MDRD) Af Amer 42 L, Est GFR (MDRD) Non-Af 35 L, BUN/Creatinine Ratio 9.7 L, Glucose 129 H, Calcium 9.2, Total Bilirubin 0.80, AST 22, ALT 16, Alkaline Phosphatase 256 H, Total Protein 7.6, Albumin 2.2 L, Globulin 5.4 H, Albumin/Globulin Ratio 0.4 L 09/17/22 01:55: Lactic Acid 3.1 H* 09/17/22 01:55: Phosphorus 2.6, Magnesium 1.8 09/17/22 02:04: Urine Color Yamilex, Urine Clarity Turbid, Urine pH 8.0, Ur Specific [place] 1.015, Urine Protein 500 H, Urine Glucose (UA) Normal, Urine Ketones Negative, Urine Occult Blood 250 H, Urine Nitrite Negative, Urine Bilirubin Negative, Urine Urobilinogen Normal, Ur Leukocyte Esterase 500 H, Urine RBC > 100 SEEN, Urine WBC >100 SEEN, Ur Squamous Epith Cells 0 SEEN, Urine Bacteria 4+, Urine Mucus 0 SEEN 09/17/22 06:05: WBC 23.5 H, RBC 3.27 L, Hgb 8.5 L, Hct 29.6 L, MCV 90.5, MCH 26.0 L, MCHC 28.7 L, RDW Std Deviation 65.0 H, RDW Coeff of [place] 19.7 H, Plt Count 439, MPV 10.1, Immature Gran % (Auto) 0.900, Neut % (Auto) 87.4 H, Lymph % (Auto) 6.2 L, [place] % (Auto) 2.9, Eos % (Auto) 2.2, Baso % (Auto) 0.4, Absolute Neuts (auto) 20.5 H, Absolute Lymphs (auto) 1.45, Nucleated RBC % 0 Micro: Microbiology 09/17/22 02:05 Nasal Secretion SARS-CoV-2 & FLU Antigen (Rapid) - Final Radiology Impression Chest X-Ray 09/17/22 02:15 IMPRESSION: 1. Underexpansion of the lungs with no visualized pulmonary infiltrate. 2. Central line in place. Electronically Signed: Ace Escamilla MD at 3:41 EDT Reading Location ID and State: [facility] / [place] , Service support , Charges/Coding Visit Charges Inpatient E&M: 10108 Init Hosp L3
[2022-09-17 06:41] LABS: ALB/GLOB Ratio 0.4 RATIO (0.9-2.4); AST(SGOT) 26 U/L (15-37); Alanine Aminotransfer ALT/SGPT 14 U/L (16-61); Albumin, Serum 1.9 g/dL (3.2-5.0); Alkaline Phosphatase 240 U/L (45-117); Anion Gap 6 (5-15); BUN 23 mg/dL (7-18); BUN/Creat Ratio 9.4 RATIO (10-20); Calcium,Total 8.6 mg/dL (8.5-10.1); Chloride 105 mmol/L (98-107); Creatinine, Serum 2.45 mg/dL (0.70-1.30); EST Glomerular Filtration Rate 33 mL/min (>60); Est Glom Filt Rate - Afr Amer 40 mL/min (>60); Estimated Creatinine Clearance 33.21 ml/min; Globulin 4.9 g/dL (2.2-4.2); Glucose 79 mg/dL (74-106); Potassium 3.9 mmol/L (3.5-5.1); Protein, Total 6.8 g/dL (6.4-8.2); Sodium Level 139 mmol/L (136-145)
[2022-09-17 06:52] LABS: Differential Comment SCANNED
--- NOTE | 2022-09-17 06:58 | NURSING ---
This RN called [facility] about new consult for patient. They were updated that patient is an ESRD patient that receives hemodialysis Mondays, Tuesdays, Wednesdays, and Fridays.
--- NOTE | 2022-09-17 07:03 | PN.HOSP_ITS ---
Reason for Visit Reason for Visit: Diagnoses Sepsis, unspecified organism (09/17/22) Subjective Subjective feeling better. Objective Data Objective Data Vital Signs: Vital Signs Temp Pulse Resp BP Pulse Ox O2 Del Method O2 Flow Rate 37.0 C 123 H 38 H 98/54 L 93 Room Air 2 09/17/22 04:45 09/17/22 07:00 09/17/22 07:00 09/17/22 07:00 09/17/22 07:00 09/17/22 07:00 09/17/22 01:33 Oxygen Flow Rate (L/min) 2 Oxygen Delivery Method Room Air Weight: 100.4 kg Body Mass Index (BMI) 40.7 Intake & Output: Intake and Output for Last 24 Hours 09/15/22 09/16/22 09/17/22 23:59 23:59 23:59 Intake Total 2380 / 2380 Balance 2380 / 2380 Lab / Micro Data Result Diagrams: 09/17/22 06:05 09/17/22 06:05 Labs: Laboratory Results - last 24 hr 09/17/22 01:55: WBC 25.3 H, RBC 3.67 L, Hgb 9.5 L, Hct 33.0 L, MCV 89.9, MCH 25 .9 L, MCHC 28.8 L, RDW Std Deviation 63.7 H, RDW Coeff of Francisco 19.8 H, Plt Count 479 H, MPV 10.3, Immature Gran % (Auto) 0.700, Neut % (Auto) 87.0 H, Lymph % (Auto) 5.1 L, [place] % (Auto) 4.7, Eos % (Auto) 2.0, Baso % (Auto) 0.5, Absolute Neuts (auto) 22.0 H, Absolute Lymphs (auto) 1.29, Nucleated RBC % 0, Platelet Estimate SLT INC, Anisocytosis 2+ 09/17/22 01:55: Sodium 137, Potassium 4.0, Chloride 98, Carbon Dioxide 29.0, Anion Gap 10, BUN 23 H, Creatinine 2.38 H, Estim Creat Clear Calc 35.69, Est GFR (MDRD) Af Amer 42 L, Est GFR (MDRD) Non-Af 35 L, BUN/Creatinine Ratio 9.7 L, Glucose 129 H, Calcium 9.2, Total Bilirubin 0.80, AST 22, ALT 16, Alkaline Phosphatase 256 H, Total Protein 7.6, Albumin 2.2 L, Globulin 5.4 H, Albumin/Globulin Ratio 0.4 L 09/17/22 01:55: Lactic Acid 3.1 H* 09/17/22 01:55: Phosphorus 2.6, Magnesium 1.8 09/17/22 02:04: Urine Color Yamilex, Urine Clarity Turbid, Urine pH 8.0, Ur Specific [place] 1.015, Urine Protein 500 H, Urine Glucose (UA) Normal, Urine Ketones Negative, Urine Occult Blood 250 H, Urine Nitrite Negative, Urine Bilirubin Negative, Urine Urobilinogen Normal, Ur Leukocyte Esterase 500 H, Urine RBC > 100 SEEN, Urine WBC >100 SEEN, Ur Squamous Epith Cells 0 SEEN, Urine Bacteria 4+, Urine Mucus 0 SEEN 09/17/22 06:05: WBC 23.5 H, RBC 3.27 L, Hgb 8.5 L, Hct 29.6 L, MCV 90.5, MCH 26.0 L, MCHC 28.7 L, RDW Std Deviation 65.0 H, RDW Coeff of Francisco 19.7 H, Plt Co unt 439, MPV 10.1, Immature Gran % (Auto) 0.900, Neut % (Auto) 87.4 H, Lymph % (Auto) 6.2 L, [place] % (Auto) 2.9, Eos % (Auto) 2.2, Baso % (Auto) 0.4, Absolute Neuts (auto) 20.5 H, Absolute Lymphs (auto) 1.45, Nucleated RBC % 0, Diff erential Comment SCANNED 09/17/22 06:05: Sodium 139, Potassium 3.9, Chloride 105, Carbon Dioxide 28.0, Anion Gap 6, BUN 23 H, Creatinine 2.45 H, Estim Creat Clear Calc 33.21, Est GFR (MDRD) Af Amer 40 L, Est GFR (MDRD) Non-Af 33 L, BUN/Creatinine Ratio 9.4 L, Gl ucose 79, Calcium 8.6, Total Bilirubin 0.60, AST 26, ALT 14 L, Alkaline Phosphatase 240 H, Total Protein 6.8, Albumin 1.9 L, Globulin 4.9 H, Albumin/Globulin Ratio 0.4 L Micro: Microbiology 09/17/22 02:05 Nasal Secretion SARS-CoV-2 & FLU Antigen (Rapid) - Final Radiography Diagnostic Testing: Radiology Impression Chest X-Ray 09/17/22 02:15 IMPRESSION: 1. Underexpansion of the lungs with no visualized pulmonary infiltrate. 2. Central line in place. Electronically Signed: Ace Escamilla MD at 3:41 EDT Reading Location ID and State: [facility] / [place] , Service support , Physical Exam Const alert and no apparent distress HEENT head/scalp atraumatic and moist oral mucous membranes Resp normal respiratory effort, no retractions, no use of accessory muscles and clear to auscultation bilaterally Cardio regular rate, regular rhythm, S1 normal heart sound and S2 normal heart sound GI normal to inspection, nondistended, normoactive bowel sounds, soft to palpation, non-tender and non-distended Extremity Extremity Narrative: stage 4 ischial ulcer bilateral hips Assessment & Plan Assessment/Plan (1) Sepsis: PLAN: Acute Sepsis (tachycardia, hypotension with systolic less than 90, tachypnea, positive source of infection, lactic acidosis) with chronic nephrostomy tube: Will admit patient to the ICU to be cautious although patient does tend to run low, continue judicious hydration given underlying CHF history with lactic acid trending per facility protocol, maintain on cardiac monitoring, IV Levaquin given allergies and review of most recent culture with pending Cx with de-escalation/alteration of antibiotic therapy once this results, will stress dose with IV hydrocortisone, blood culture x2 pending per ED, will request IR consultation for nephrostomy change, PT/OT/CM consultations for discharge planning, will consult rag cutting machine operator per protocol. (2) Acute UTI: PLAN: On IV levofloxacin s/p right nephrostomy tube change on 09/17 follow up UCx (3) Decubitus ulcer: QUALIFIERS: Pressure injury location: buttock Laterality: unspecified laterality PLAN: Chronic pressure ulcers: Frequent position changes, barrier cream, continue Dakin's solution with packing, wound RN consultation. Continue wound care. No clear sign of infection at this time. PLAN: Plan The patient is a 26 /o M w/ PMHx: Spina bifida w/ paraplegic immobility syndrome w/ chronic indwelling catheter following w/ Urologist at [facility] w/ history of nephrolithiasis w/ stents in the past, Chronic normocytic anemia/iron deficiency anemia, Chronic Systolic CHF, Hx Pericardial Effusion, Secondary Pulmonary HTN, SOPHIA, Morbid Obesity, Chronic Hypotension on Midodrine with suspected underlying adrenal insufficiency, ESRD on HD who presents to the [facility] ED on 09/17/22 with history of most recent nephrostomy tube replacement 6 weeks prior reportedly at [facility] with recommendation at that time for change out in 4 to 6 to 8 weeks locally however its unclear who this has been set up with who now presents with onset of fever and chills starting approximately 7 PM on day prior to presentation with blood pressure mildly decreased from his baseline. Chronic conditions: * ESRD: Admission BUN/creatinine 25/06.38, following with Dr. Tinsley, noted dialysis days Wednesday, Wednesday, Wednesday, Wednesday last note noted 02/13/2022 admission with [facility] at that time felt secondary to ATN secondary to severe sepsis transferred at that time to tertiary care center for nephrostomy tube placements with noted bilateral hydronephrosis eventually worsening and transitioning to dialysis, will continue home HD regimen, nephrology consulted, pending. * Chronic hypotension with suspected underlying adrenal insufficiency: Not clear on patient medical history from skilled facility but patient is maintained on chronic midodrine as well as hydrocortisone oral daily regimen thus suspect underlying adrenal insufficiency, will continuemidodrine and given presentation will stress dose with IV hydrocortisone with transition back to oral regimen once improved. * Chronic systolic CHF: 09/30/2018 echocardiogram with normal LV size, LV systolic function normal, EF 55%, moderate concentric LVH, no evidence of any pericardial effusion. Patient with concurrent history of hypertension on midodrine therapy which complicates patient underlying CHF history, will continue aspirin, not on statin therapy, not on beta-ángel nor RAMIRO inhibitor/ARB given progressive renal disease as well as hypertension. We will continue judicious hydration given his history. * Chronic normocytic anemia/iron deficiency anemia: Admission hemoglobin 9.5, baseline hemoglobin more recently noted to be 8-9, most recent prior to this 09/14/2022 hemoglobin 8.2 however in 01/2022 hemoglobin 1112 at that time but has vacillated over the years, repeat CBC in AM, continue supplementation. * Spina bifida w/ paraplegic: Patient w/ as noted chronic indwelling catheter, following w/ Urologist at [facility] w/ history of nephrolithiasis w/ stents, 01/2022 admission as noted with eventual transfer for nephrostomy tube placements with eventual end-stage renal disease requiring dialysis. Frequent position changes. PT, OT consulted. * Chronic bilateral lower extremity edema: Patient from prior records frequently sleeping upright in a chair with poor food choices heavy and salts, will place neck ramiro wraps, elevate bilateral lower extremity, improved from prior evaluations. * Morbid Obesity: Weight loss and lifestyle changes encouraged. * SOPHIA: We will continue CPAP nightly. * Anxiety and depression: We will continue patient home sertraline regimen. * GERD: We will continue patient home PPI. DVT prophylaxis: Heparin. CODE STATUS: Full code per facility paperwork. Charges/Coding Visit Charges Inpatient E&M: 37411 Subs Hosp L3
[2022-09-17 07:25] LABS: Lactic Acid 1.6 mmol/L (0.4-1.9)
[2022-09-17] MEDS: Ferrous Sulfate 325 MG Tablet PO (07:57)
[2022-09-17] MEDS: Midodrine HCl 5 MG Tablet 20 MG PO ×3 (07:58→17:39)
--- NOTE | 2022-09-17 09:30 | CASEMGMT ---
Social Work SW participated in ICU rounds, pt is here from [facility]. SW spoke w/pt after rounds. Pt confirmed he is here from [facility], and would like to return. Pt states he feels he is being well cared for at [facility], pt declined a list of other facilities in the area. Pt has been there two weeks, was at [facility] prior. His plan is to get home eventually, he normally lives with his parents and two of his three brothers. Pt has been on dialysis since January, and his family is working on getting a van to get him back and forth to dialysis. Pt explained has been in and out of hospitals and nursing homes since January. SW offered support to pt. Plan will be for pt to return to [facility] when ready. case planner Kiera will send updates via [employer]. JAY Rai
--- NOTE | 2022-09-17 09:49 | CASEMGMT ---
Discharge Planning Return SNF referral sent to [facility] via [facility]. Kiera Miranda
--- NOTE | 2022-09-17 10:08 | NURSING ---
0925-pt transported to radiology for nephrostomy tube replacement.
--- NOTE | 2022-09-17 10:12 | NURSING ---
RAMIRO wraps to be placed after wound nurse sees patient.
--- NOTE | 2022-09-17 10:14 | CASEMGMT ---
Social Work LW/POA forms not on file. SW called [facility], they do not have the documents either. They are going to request them from [facility], where pt was prior, and send them to the hospital should they attain a copy. JAY Rai
--- NOTE | 2022-09-17 10:35 | CASEMGMT ---
Discharge Planning Per [facility], patient can return. He was being skilled when sent to hospital and will return skilled. notified. Kiera Miranda
[2022-09-17] MEDS: Gabapentin 100 MG Capsule PO (10:57)
[2022-09-17] MEDS: guaiFENesin 600 MG Tablet PO ×2 (10:57→21:34)
[2022-09-17] MEDS: Pantoprazole Sodium 40 MG Tablet PO ×2 (10:57→21:34)
[2022-09-17] MEDS: Sertraline 50 MG Tablet 25 MG PO (10:58)
--- NOTE | 2022-09-17 11:54 | NURSING ---
1047-Patient returned from Radiology.
[2022-09-17] MEDS: DAKIN'S SOL HALF STRENGTH (=0.25%) 1 APPLIC TOPICAL (12:02)
[2022-09-17] MEDS: Menthol/Lanolin/Calamine/Znox 113 GM Tube 1 APPLIC TOPICAL ×3 (12:05→21:35)
--- NOTE | 2022-09-17 12:29 | NURSING ---
RAMIRO wraps applied to BLE
--- NOTE | 2022-09-17 12:51 | WOUNDNOTE ---
wound photo: right ischium
--- NOTE | 2022-09-17 12:52 | WOUNDNOTE ---
wound photo: left ischium
--- NOTE | 2022-09-17 12:53 | WOUNDNOTE ---
wound photo: right abdomen/right thigh
[2022-09-17] MEDS: MELATONIN 3 MG TABLET PO (21:34)
[2022-09-17] MEDS: traZODone 100 MG Tablet PO ×2 (21:34→21:35)
[2022-09-18] VITALS (15 sets, daily range): BP systolic 112–143; BP diastolic 69–95; PULSE 71–93; RESP 13–27; TEMP 35.9–37.3; O2SAT 90–99; BMI 40.8
[2022-09-18] MEDS: Hydrocortisone Sod Succinate 100 MG/2 ML Vial IV ×2 (05:07→21:48)
[2022-09-18] MEDS: Heparin Injection (Vial) 5,000 UNIT/ML VIAL 5000 UNIT SC ×3 (05:07→21:48)
--- NOTE | 2022-09-18 06:28 | PN.CC_ITS ---
Assessment & Plan Assessment/Plan (1) Sepsis: PLAN: Plan RECOMMENDATIONS: 1. Continue continue empiric antimicrobials, pending finalized culture results. 2. Will decrease stress dose steroids today. Continue to wean as tolerated. 3. Continue scheduled midodrine. 4. Encourage incentive spirometer use. 5. Continue nocturnal BiPAP therapy, given history of SOPHIA. 6. The patient is medically stable for transfer out of the intensive care unit. We will sign off from a critical care perspective. IMPRESSIONS: 1. Sepsis The patient presented with sepsis due to gram-negative complicated UTI/bacteremia with acute sepsis related organ dysfunction as evidenced by lactic acidemia and persistent hypotension. The patient has stabilized from a hemodynamic perspective. He does have a history of questionable adrenal insufficiency and chronic hypotension, requiring scheduled midodrine. The patient's nephrostomy tube was exchanged on September 17, without complication. Plan to continue antimicrobials, pending finalized culture results. The patient will remain on scheduled midodrine. Given hemodynamic stability, will decrease michelle quency of stress dose steroids. 2. End-stage renal disease on hemodialysis Nephrology following to assist with hemodialysis needs. 3. Relative adrenal insufficiency with persistent/chronic hypotension Continue baseline midodrine regimen. Continue to wean stress dose steroids as tolerated by hemodynamic status. 4. History of congestive heart failure/anemia/spina bifida with paraplegia/obesity/obstructive sleep apnea Complicates care, management, recovery and prognosis. Continue home supportive measures. Continue nocturnal BiPAP therapy. This note was generated with SnipSnap dictation software. It may contain incorrect words, spelling, and punctuation that were not noted in checking the note before signing. Subjective Subjective The patient was seen and examined at the bedside this morning. Events from the last 24 hours have been reviewed. The patient is currently afebrile, hemodynamically stable and maintaining appropriate oxygen saturations on room air. The patient's nephrostomy tube was successfully exchanged yesterday. The patient is documented to be overall net +3.6 L for the hospitalization. White count remains elevated at 23,000. Objective Data Objective Data The patient's most recent lab work, culture data and imaging studies have all been personally reviewed. Preliminary blood cultures dated September 17 were positive for gram-negative rods. Urine culture is pending. Vital Signs: Vital Signs Temp Pulse Resp BP Pulse Ox O2 Del Method O2 Flow Rate 98.9 F 83 20 H 121/90 H 92 Room Air 2 09/18/22 05:00 09/18/22 06:00 09/18/22 06:00 09/18/22 06:00 09/18/22 06:00 09/18/22 06:00 09/17/22 15:53 FiO2 25 09/18/22 01:38 Oxygen Flow Rate (L/min) 2 Oxygen Delivery Method Room Air Weight: 221 lb 12.56 oz Body Mass Index (BMI) 40.8 Intake & Output: Intake and Output for Last 24 Hours 09/16/22 09/17/22 09/18/22 23:59 23:59 23:59 Intake Total 3475.83 / 3595.83 120 / 120 Output Total 50 / 50 Balance 3425.83 / 3545.83 120 / 120 Lab / Micro Data Attestation: I reviewed the patient's lab results. Result Diagrams: 09/19/22 03:34 09/19/22 03:34 Labs: Laboratory Results - last 24 hr 09/17/22 06:05: Differential Comment SCANNED 09/17/22 06:05: Sodium 139, Potassium 3.9, Chloride 105, Carbon Dioxide 28.0, Anion Gap 6, BUN 23 H, Creatinine 2.45 H, Estim Creat Clear Calc 33.21, Est GFR (MDRD) Af Amer 40 L, Est GFR (MDRD) Non-Af 33 L, BUN/Creatinine Ratio 9.4 L, Glucose 79, Calcium 8.6, Total Bilirubin 0.60, AST 26, ALT 14 L, Alkaline Ph osphatase 240 H, Total Protein 6.8, Albumin 1.9 L, Globulin 4.9 H, Albumin/Globulin Ratio 0.4 L 09/17/22 06:45: Lactic Acid 1.6 Micro: Microbiology 09/17/22 02:00 Blood Culture (Wb) - Right Hand Blood Culture - Preliminary 09/17/22 02:05 Nasal Secretion SARS-CoV-2 & FLU Antigen (Rapid) - Final Radiography Diagnostic Testing: Radiology Impression Nephrostomy Tube Change 09/17/22 04:25 IMPRESSION: Exchange of the right 10 Kuwaiti percutaneous nephrostomy catheter. Electronically Signed: Jesus Alberto Munoz MD at 12:17 EDT , Physical Exam Const alert and no apparent distress General Appearance: cooperative Nutritional Appearance: obese HEENT normocephalic and head/scalp atraumatic Eyes PERRL, EOMs intact bilaterally and conjunctivae normal Neck supple General: trachea midline Chest inspection of chest normal Resp normal respiratory effort Auscultation: diminished lung sounds; Negative for rales, rhonchi or wheezes Cardio S1 normal heart sound and S2 normal heart sound Rate: tachycardic GI normal to inspection, nondistended, normoactive bowel sounds Extremity General Extremity: edema; Negative for clubbing Skin General Skin Exam: venous stasis and dermatitis Neuro oriented x3 and no focal motor deficits Neuro Narrative: Baseline paraplegia Psych cooperative and affect normal Charges/Coding Visit Charges Inpatient E&M: 16468 Subs Hosp L2
--- NOTE | 2022-09-18 07:01 | PN.HOSP_ITS ---
Reason for Visit Reason for Visit: Diagnoses Sepsis, unspecified organism (09/17/22) Pressure ulcer of unspecified site, unspecified stage (09/17/22) Urinary tract infection, site not specified (09/17/22) Subjective Subjective feels better Objective Data Objective Data Vital Signs: Vital Signs Temp Pulse Resp BP Pulse Ox O2 Del Method O2 Flow Rate 37.2 C 83 20 H 121/90 H 92 Room Air 2 09/18/22 05:00 09/18/22 06:00 09/18/22 06:00 09/18/22 06:00 09/18/22 06:00 09/18/22 06:00 09/17/22 15:53 FiO2 25 09/18/22 01:38 Oxygen Flow Rate (L/min) 2 Oxygen Delivery Method Room Air Weight: 100.6 kg Body Mass Index (BMI) 40.8 Intake & Output: Intake and Output for Last 24 Hours 09/16/22 09/17/22 09/18/22 23:59 23:59 23:59 Intake Total 3475.83 / 3595.83 240 / 240 Output Total 50 / 50 Balance 3425.83 / 3545.83 240 / 240 Lab / Micro Data Result Diagrams: 09/17/22 06:05 09/17/22 06:05 Labs: Laboratory Results - last 24 hr 09/17/22 06:45: Lactic Acid 1.6 Micro: Microbiology 09/17/22 02:00 Blood Culture (Wb) - Right Hand Blood Culture - Preliminary 09/17/22 02:05 Nasal Secretion SARS-CoV-2 & FLU Antigen (Rapid) - Final Radiography Diagnostic Testing: Radiology Impression Nephrostomy Tube Change 09/17/22 04:25 IMPRESSION: Exchange of the right 10 Hong Konger percutaneous nephrostomy catheter. Electronically Signed: Jesus Alberto Munoz MD at 12:17 EDT , Physical Exam Const alert and no apparent distress HEENT head/scalp atraumatic and moist oral mucous membranes Resp normal respiratory effort, no retractions, no use of accessory muscles and clear to auscultation bilaterally Cardio regular rate, regular rhythm, S1 normal heart sound and S2 normal heart sound GI normal to inspection, nondistended, normoactive bowel sounds, soft to palpation, non-tender and non-distended Assessment & Plan Assessment/Plan (1) Sepsis: PLAN: Acute Sepsis (tachycardia, hypotension with systolic less than 90, tachypnea, positive source of infection, lactic acidosis) with chronic nephrostomy tube: Will admit patient to the ICU to be cautious although patient does tend to run low, continue judicious hydration given underlying CHF history with lactic acid trending per facility protocol, maintain on cardiac monitoring, IV Levaquin given allergies and review of most recent culture with pending Cx with de-escalation/alteration of antibiotic therapy once this results, will stress dose with IV hydrocortisone, blood culture x2 pending UCx pending. (2) Acute UTI: PLAN: 2/ nephrostomy tube On IV levofloxacin s/p right nephrostomy tube changed on 09/17 follow up UCx (3) Decubitus ulcer: QUALIFIERS: Laterality: unspecified laterality Pressure injury location: buttock PLAN: Chronic pressure ulcers: Frequent position changes, barrier cream, continue Dakin's solution with packing, wound RN consultation. Continue wound care. No clear sign of infection at this time. PLAN: Plan The patient is a 26 /o M w/ PMHx: Spina bifida w/ paraplegic immobility syndrome w/ chronic indwelling catheter following w/ Urologist at [facility]/ history of nephrolithiasis w/ stents in the past, Chronic normocytic anemia/iron deficiency anemia, Chronic Systolic CHF, Hx Pericardial Effusion, Secondary Pulmonary HTN, SOPHIA, Morbid Obesity, Chronic Hypotension on Midodrine with suspected underlying adrenal insufficiency, ESRD on HD who presents to the [facility] ED on 09/17/22 with history of most recent nephrostomy tube replacement 6 weeks prior reportedly at [facility] with recommendation at that time for change out in 4 to 6 to 8 weeks locally however its unclear who this has been set up with who now presents with onset of fever and chills starting approximately 7 PM on day prior to presentation with blood pressure mildly decreased from his baseline. Chronic conditions: * ESRD: Admission BUN/creatinine /2.38, following with Dr. Tinsley, noted dialysis days Wednesday, Wednesday, Wednesday, Wednesday last note noted 02/13/2022 admission with [facility] at that time felt secondary to ATN secondary to severe sepsis transferred at that time to tertiary care center for nephrostomy tube place ments with noted bilateral hydronephrosis eventually worsening and transitioning to dialysis, will continue home HD regimen, nephrology consulted, pending. * Chronic hypotension with suspected underlying adrenal insufficiency: Not clear on patient medical history from skilled facility but patient is maintained on chronic midodrine as well as hydrocortisone oral daily regimen thus suspect underlying adrenal insufficiency, will continuemidodrine and given presentation will stress dose with IV hydrocortisone with transition back to oral regimen once improved. * Chronic systolic CHF: 09/30/2018 echocardiogram with normal LV size, LV systolic function normal, EF 55%, moderate concentric LVH, no evidence of any pericardial effusion. Patient with concurrent history of hypertension on midodrine therapy which complicates patient underlying CHF history, will continue aspirin, not on statin therapy, not on beta-ángel nor RAMIRO inhibitor/ARB given progressive renal disease as well as hypertension. We will continue judicious hydration given his history. * Chronic normocytic anemia/iron deficiency anemia: Admission hemoglobin 9.5, baseline hemoglobin more recently noted to be 8-9, most recent prior to this 09/14/2022 hemoglobin 8.2 however in 01/2022 hemoglobin 1112 at that time but has vacillated over the years, repeat CBC in AM, continue supplementation. * Spina bifida w/ paraplegic: Patient w/ as noted chronic indwelling catheter, following w/ Urologist at [facility] w/ history of nephrolithiasis w/ stents, 01/2022 admission as noted with eventual transfer for nephrostomy tube placements with eventual end-stage renal disease requiring dialysis. Frequent position changes. PT, OT consulted. * Chronic bilateral lower extremity edema: Patient from prior records frequently sleeping upright in a chair with poor food choices heavy and salts, will place neck ramiro wraps, elevate bilateral lower extremity, improved from prior evaluations. * Morbid Obesity: BMI >40 * SOPHIA: We will continue CPAP nightly. * Anxiety and depression: We will continue patient home sertraline regimen. * GERD: We will continue patient home PPI. DVT prophylaxis: Heparin. CODE STATUS: Full code per facility paperwork. Charges/Coding Visit Charges Inpatient E&M: 60249 Subs Hosp L2
[2022-09-18] MEDS: Midodrine HCl 5 MG Tablet 20 MG PO ×3 (08:52→17:32)
--- NOTE | 2022-09-18 09:26 | CASEMGMT ---
SW sent updates to [facility]. SW also let [facility] know patient may be ready over the weekend. Green sheet will be placed on chart. Plan: d/c back to [facility] under skilled level of care. Danielle PINEDA
--- NOTE | 2022-09-18 09:30 | CON.PCM.RE_ITS ---
Assessment & Plan Assessment/Plan (1) ESRD (end stage renal disease): (2) Acute UTI: (3) Hypotension: PLAN: Plan This is a pleasant 26-year-old male with past medical history significant for ESRD on hemodialysis 4 times weekly at [facility] who was admitted for further evaluation and treatment of acute UTI. Patient has history of hydronephrosis and has right nephrostomy tube. He had nephrostomy tube changed yesterday. Urine culture is pending. He is on IV antibiotics, Levaquin. Nephrology consulted for management of hemodialysis needs. Patient last dialyzed Wednesday at the [facility]. We will plan for dialysis today over 3.5 hours on 3K bath and attempt around 1 L fluid removal. Patient appears near euvolemic. Continue midodrine predialysis and as ordered. Blood pressures are acceptable currently. Patient has a history of anemia of chronic disease and receives CRISTIANO and iron at nursing, we will monitor hemoglobin trends. Last hemoglobin 8.5. Further orders forthcoming as hospitalization evolves, thank you for allowing us to participate in the care of of Mr. Damian. HPI Consult Data Date of Consult: 09/18/22 HPI Narrative HPI Narrative: OKSANA DAMIAN, is a 26 M with past medical history significant for spina bifida, chronic diastolic heart failure, history of bilateral hydronephrosis with chroni c nephrostomy tube, ESRD on dialysis since around March 2022 who was brought to the emergency room from [facility] for evaluation of hypotension and fever. Patient was admitted for further evaluation and treatment. Nephrology consulted for management of hemodialysis. Patient currently dialyzes at [facility] on a Wednesday, Wednesday, Wednesday, Wednesday schedule. Patient last dialyzed on Wednesday. This morning patient reports he is feeling better. Denies any nausea or vomiting. Reports has good appetite. 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, stage 3 Right-sided heart failure Secondary pulmonary arterial hypertension Spina bifida Systolic CHF Umbilical hernia Home Medications acetaminophen 325 mg tablet 650 mg PO Q4H PRN PAIN/FEVER 09/17/22 [History Last Taken Unknown] acetaminophen 650 mg rectal suppository 650 mg WI Q4H PRN PAIN/FEVER 09/17/22 [History Last Taken Unknown] albuterol sulfate 2.5 mg/3 mL (0.083 %) solution for nebulization 2.5 mg inhalation Q4H PRN Shortness Of Breath 09/17/22 [History Last Taken Unknown] aluminum-magnesium hydroxide 225 mg-200 mg/5 mL oral suspension 30 ml PO Q4H PRN PRN GI DISTRESS 09/17/22 [History Last Taken Unknown] bisacodyl 10 mg rectal suppository 10 mg WI DAILY PRN Constipation 09/17/22 [History Last Taken Unknown] dextrose 40 % oral gel (Glucose Gel) 15 g PO Q15M PRN Hypoglycemia 09/17/22 [History Last Taken Unknown] ferrous sulfate 325 mg (65 mg iron) tablet 325 mg PO DAILY 09/17/22 [History Last Taken Unknown] gabapentin 100 mg capsule 100 mg PO DAILY 09/17/22 [History Last Taken Unknown] guaifenesin 200 mg/5 mL oral liquid 400 mg PO Q4H PRN Cough 09/17/22 [History Last Taken Unknown] guaifenesin 600 mg tablet, extended release 12 hr (Mucinex) 600 mg PO BID 09/17/22 [History Last Taken Unknown] heparin, porcine (PF) 5,000 unit/mL injection syringe 5,000 unit subcut Q8H 09/17/22 [History Last Taken Unknown] hydrocortisone 10 mg tablet 10 mg PO BID 09/17/22 [History Last Taken Unknown] hydrocortisone 5 mg tablet 5 mg PO DAILY 09/17/22 [History Last Taken Unknown] loperamide 2 mg tablet 2 mg PO Q6H PRN Diarrhea 09/17/22 [History Last Taken Unknown] magnesium hydroxide 400 mg/5 mL oral suspension (Milk of Magnesia) 400 mg PO SADAF LY PRN Constipation 09/17/22 [History Last Taken Unknown] melatonin 3 mg tablet 3 mg PO QHS 09/17/22 [History Last Taken Unknown] midodrine 10 mg tablet 20 mg PO TID 09/17/22 [History Last Taken Unknown] pantoprazole 40 mg tablet,delayed release 40 mg PO BID 09/17/22 [History Last Taken Unknown] sertraline 25 mg tablet 25 mg PO DAILY 09/17/22 [History Last Taken Unknown] sodium hypochlorite 0.25 % solution (Dakin's Solution) 1 applic topical DAILY 09/17/22 [History Last Taken Unknown] sodium phosphates 19 gram-7 gram/118 mL enema (Fleet Enema) 118 ml WI DAILY PRN Constipation 09/17/22 [History Last Taken Unknown] trazodone 100 mg tablet 100 mg PO QHS 09/17/22 [History Last Taken Unknown] vitamin B complex-vitamin C-folic acid 0.8 mg tablet (Renal-Adal) 1 tab PO DAILY 09/17/22 [History Last Taken Unknown] Allergy/AdvReac Type Severity Reaction Status Date / Time ampicillin Allergy rash Verified 09/17/22 01:38 cefepime Allergy Hives Verified 09/17/22 01:38 daptomycin Allergy Hives Verified 09/17/22 01:38 fentanyl Allergy Rash Verified 09/17/22 01:38 latex Allergy Hives Verified 09/17/22 01:38 meropenem Allergy rash Verified 09/17/22 01:38 morphine Allergy Hives Verified 09/17/22 01:38 sulbactam [From Unasyn] Allergy Hives Verified 09/17/22 01:38 vancomycin Allergy Hives Verified 09/17/22 01:38 Family History Grandfather Heart disease Father Hypertension Mother Hyperlipidemia Surgical History History of back surgery History of foot surgery History of kidney surgery History of ventriculoperitoneal shunting S/P cutaneous-vesicostomy S/P ureteral stent placement Status post laser lithotripsy of ureteral calculus Social History household members: family Smoking Status: Never smoker second hand exposure: Yes alcohol intake: never substance use type: does not use ROS ROS Narrative As in HPI and past medical history Physical Exam Narrative Alert and oriented x3, no apparent distress S1, S2, RRR Lung sounds clear anteriorly and posteriorly. No wheezes, rhonchi or rales noted Abdomen soft, nontender, positive bowel sounds No edema noted to bilateral legs Tunneled HD catheter dressing clean, dry and intact Lab / Micro Data Result Diagrams: 09/17/22 06:05 09/17/22 06:05 Micro: Microbiology 05/18/23 02:00 Blood Culture (Wb) - Right Hand Blood Culture - Preliminary Radiology Impression Nephrostomy Tube Change 09/17/22 04:25 IMPRESSION: Exchange of the right 10 Ivorian percutaneous nephrostomy catheter. Electronically Signed: Jesus Alberto Munoz MD at 12:17 EDT ,
[2022-09-18] MEDS: guaiFENesin 600 MG Tablet PO ×2 (13:19→21:48)
[2022-09-18] MEDS: Pantoprazole Sodium 40 MG Tablet PO ×2 (13:19→21:49)
[2022-09-18] MEDS: Heparin 10,000 UNITS/10 ML Vial IV (13:20)
[2022-09-18] MEDS: Sertraline 50 MG Tablet 25 MG PO (13:21)
[2022-09-18] MEDS: Menthol/Lanolin/Calamine/Znox 113 GM Tube 1 APPLIC TOPICAL ×2 (13:22→21:49)
[2022-09-18] MEDS: Gabapentin 100 MG Capsule PO (13:23)
--- NOTE | 2022-09-18 13:40 | DIALYSIS ---
Hemodialysis x 3.5 hours completed. UF 1000 ml as ordered. CVC flushed with normal saline and filled to volume with heparin. Patient stable and alert. Report to Noelle Kumar Rn
[2022-09-18] MEDS: DAKIN'S SOL HALF STRENGTH (=0.25%) 1 APPLIC TOPICAL (14:10)
[2022-09-18] MEDS: MELATONIN 3 MG TABLET PO (21:48)
--- NOTE | 2022-09-18 22:00 | NURSING ---
This RN assumed care of this pt at this time
[2022-09-19 03:01] VITALS: RESP 14
[2022-09-19 03:52] VITALS: BP 127/81; PULSE 86; RESP 15; TEMP 36.7; O2SAT 99
[2022-09-19 03:59] LABS: Absolute Neutrophil Count 16.9 X10^3/uL (2.0-7.7); Basophil# 0.05 X10^3/uL; Basophil% 0.3 % (0-1); Eosinophil# 0.06 X10^3/uL; Eosinophils% 0.3 % (0-5); Hematocrit 32.5 % (40-54); Hemoglobin 9.4 g/dL (13.0-16.5); Lymphocyte % 5.8 % (19-41); Mean Corp Hgb Conc 28.9 g/dL (32-36); Mean Corpuscular Hgb 25.6 pg (27.0-32.0); Mean Corpuscular Volume 88.6 fL (80-94); Mean Platelet Vol. 10.3 fl (6.2-12.0); Monocyte# 0.64 X10^3/uL; Monocyte% 3.4 % (0-10); NRBC Flagged by Analyzer 0 % (0-5); Neutrophil # 16.85 X10^3/uL (2.7-7.7); Neutrophil % 89.3 % (47-70); Platelet Count 499 K/mm3 (150-450); RBC Distribution Width CV 19.1 % (11.6-14.6); RBC Distribution Width SD 61.7 fl (35.1-43.9); Red Blood Count 3.67 M/mm3 (4.6-6.2); White Blood Count 18.9 K/mm3 (4.4-11.0)
[2022-09-19 04:51] LABS: Anion Gap 8 (5-15); BUN 45 mg/dL (7-18); BUN/Creat Ratio 18.1 RATIO (10-20); Calcium,Total 9.4 mg/dL (8.5-10.1); Chloride 101 mmol/L (98-107); Creatinine, Serum 2.48 mg/dL (0.70-1.30); EST Glomerular Filtration Rate 33 mL/min (>60); Est Glom Filt Rate - Afr Amer 40 mL/min (>60); Glucose 135 mg/dL (74-106); Potassium 4.8 mmol/L (3.5-5.1); Sodium Level 137 mmol/L (136-145)
[2022-09-19] MEDS: Heparin Injection (Vial) 5,000 UNIT/ML VIAL 5000 UNIT SC ×2 (05:20→14:25)
[2022-09-19 06:00] VITALS: BMI 40.9
[2022-09-19 07:52] VITALS: O2SAT 96
--- NOTE | 2022-09-19 08:24 | PN.HOSP_ITS ---
Reason for Visit Reason for Visit: Diagnoses Sepsis, unspecified organism (09/17/22) Pressure ulcer of unspecified site, unspecified stage (09/17/22) Urinary tract infection, site not specified (09/17/22) Subjective Subjective Feeling better. No events. Objective Data Objective Data Vital Signs: Vital Signs Temp Pulse Resp BP Pulse Ox O2 Del Method O2 Flow Rate 36.7 C 86 15 127/81 H 99 CPAP 2 09/19/22 03:52 09/19/22 03:52 09/19/22 03:52 09/19/22 03:52 09/19/22 03:52 09/19/22 03:52 09/17/22 15:53 FiO2 25 09/19/22 03:52 Oxygen Flow Rate (L/min) 2 Oxygen Delivery Method CPAP Weight: 101 kg Body Mass Index (BMI) 40.9 Intake & Output: Intake and Output for Last 24 Hours 09/17/22 09/18/22 09/19/22 23:59 23:59 23:59 Intake Total 3475.83 / 3595.83 640 / 640 Output Total 50 / 50 1000 / 1000 0 / 0 Balance 3425.83 / 3545.83 -360 / -360 0 / 0 Lab / Micro Data Result Diagrams: 09/19/22 03:34 09/19/22 03:34 Labs: Laboratory Results - last 24 hr 09/19/22 03:34: Sodium 137, Potassium 4.8, Chloride 101, Carbon Dioxide 28.0, Anion Gap 8, BUN 45 H, Creatinine 2.48 H, Estim Creat Clear Calc 32.80, Est GFR (MDRD) Af Amer 40 L, Est GFR (MDRD) Non-Af 33 L, BUN/Creatinine Ratio 18.1, Glucose 135 H, Calcium 9.4 09/19/22 03:34: WBC 18.9 H, RBC 3.67 L, Hgb 9.4 L, Hct 32.5 L, MCV 88.6, MCH 25.6 L, MCHC 28.9 L, RDW Std Deviation 61.7 H, RDW Coeff of Francisco 19.1 H, Plt Count 499 H, MPV 10.3, Immature Gran % (Auto) 0.900, Neut % (Auto) 89.3 H, Lymph % (Auto) 5.8 L, [place] % (Auto) 3.4, Eos % (Auto) 0.3, Baso % (Auto) 0.3, Absolute Neuts (auto) 16.9 H, Absolute Lymphs (auto) 1.10, Nucleated RBC % 0 Micro: Microbiology 09/17/22 02:04 Urine, Clean Catch Urine Culture - Final Proteus mirabilis 09/17/22 02:00 Blood Culture (Wb) - Right Hand Blood Culture - Preliminary 09/17/22 02:05 Nasal Secretion SARS-CoV-2 & FLU Antigen (Rapid) - Final Physical Exam Const alert and no apparent distress Resp normal respiratory effort, no retractions, no use of accessory muscles and clear to auscultation bilaterally Cardio regular rate, regular rhythm, S1 normal heart sound and S2 normal heart sound GI normal to inspection, nondistended, normoactive bowel sounds, soft to palpation, non-tender and non-distended Extremity normal to inspection Assessment & Plan Assessment/Plan (1) Sepsis: PLAN: Acute Sepsis (tachycardia, hypotension with systolic less than 90, tachypnea, positive source of infection, lactic acidosis) with chronic nephrostomy tube: Will admit patient to the ICU to be cautious although patient does tend to run low, continue judicious hydration given underlying CHF history with lactic acid trending per facility protocol, maintain on cardiac monitoring, IV Levaquin given allergies and review of most recent culture with pending Cx with de-escalation/alteration of antibiotic therapy once this results, will stress dose with IV hydrocortisone, blood culturethus far negative. UCx showing proteus. DC levofloxacin (2) Acute UTI: PLAN: / nephrostomy tube On IV levofloxacin s/p right nephrostomy tube changed on 09/17 Culture showing Proteus mirabilis. (3) Decubitus ulcer: QUALIFIERS: Laterality: unspecified laterality Pressure injury location: buttock PLAN: Chronic pressure ulcers: Frequent position changes, barrier cream, continue Dakin's solution with packing, wound RN consultation. Continue wound care. No clear sign of infection at this time. (4) Chronic hypotension: PLAN: Chronic hypotension with suspected underlying adrenal insufficiency: Not clear on patient medical history from skilled facility but patient is maintained on chronic midodrine as well as hydrocortisone oral daily regimen thus suspect underlying adrenal insufficiency, will continue midodrine Change IV hydrocortisone to PO and wean down to his home dose of 5mg. PLAN: Plan The patient is a 26 /o M w/ PMHx: Spina bifida w/ paraplegic immobility syndrome w/ chronic indwelling catheter following w/ Urologist at [facility] w/ history of nephrolithiasis w/ stents in the past, Chronic normocytic anemia/iron deficiency anemia, Chronic Systolic CHF, Hx Pericardial Effusion, Secondary Pulmonary HTN, SOPHIA, Morbid Obesity, Chronic Hypotension on Midodrine with suspected underlying adrenal insufficiency, ESRD on HD who presents to the [facility] ED on 09/17/22 with history of most recent nephrostomy tube replacement 6 weeks p rior reportedly at [facility] with recommendation at that time for change out in 4 to 6 to 8 weeks locally however its unclear who this has been set up with who now presents with onset of fever and chills starting approximately 7 PM on day prior to presentation with blood pressure mildly decreased from his baseline. Chronic conditions: * ESRD: Admission BUN/creatinine 23/2.38, following with Dr. Tinsley, noted dialysis days Wednesday, Wednesday, Wednesday, Wednesday last note noted 02/13/2022 admission with [facility] at that time felt secondary to ATN secondary to severe sepsis transferred at that time to tertiary care center for nephrostomy tube placements with noted bilateral hydronephrosis eventually worsening and transitioning to dialysis, will continue home HD regimen, nephrology consulted, pending. * Chronic systolic CHF: 09/30/2018 echocardiogram with normal LV size, LV systolic function normal, EF 55%, moderate concentric LVH, no evidence of any pericardial effusion. Patient with concurrent history of hypertension on midodrine therapy which complicates patient underlying CHF history, will continue aspirin, not on statin therapy, not on beta-ángel nor RAMIRO inhibitor/ARB given progressive renal disease as well as hypertension. We will continue judicious hydration given his history. * Chronic normocytic anemia/iron deficiency anemia: Admission hemoglobin 9.5, baseline hemoglobin more recently noted to be 8-9, most recent prior to this 09/14/2022 hemoglobin 8.2 however in 01/2022 hemoglobin 1112 at that time but has vacillated over the years, repeat CBC in AM, continue supplementation. * Spina bifida w/ paraplegic: Patient w/ as noted chronic indwelling catheter, following w/ Urologist at [facility] w/ history of nephrolithiasis w/ stents, 01/2022 admission as noted with eventual transfer for nephrostomy tube placements with eventual end-stage renal disease requiring dialysis. Frequent position changes. PT, OT consulted. * Chronic bilateral lower extremity edema: Patient from prior records frequently sleeping upright in a chair with poor food choices heavy and salts, will place neck ramiro wraps, elevate bilateral lower extremity, improved from prior evaluations. * Morbid Obesity: BMI >40 * SOPHIA: We will continue CPAP nightly. * Anxiety and depression: We will continue patient home sertraline regimen. * GERD: We will continue patient home PPI. DVT prophylaxis: Heparin. CODE STATUS: Full code per facility paperwork. DC to facility today.
[2022-09-19 09:07] VITALS: BP 114/62; PULSE 93; RESP 14; TEMP 36.6; O2SAT 94
[2022-09-19] MEDS: Ferrous Sulfate 325 MG Tablet PO (09:14)
[2022-09-19] MEDS: Midodrine HCl 5 MG Tablet 20 MG PO ×2 (09:14→12:28)
[2022-09-19] MEDS: guaiFENesin 600 MG Tablet PO (09:15)
[2022-09-19] MEDS: Pantoprazole Sodium 40 MG Tablet PO (09:15)
[2022-09-19] MEDS: Sertraline 50 MG Tablet 25 MG PO (09:15)
[2022-09-19] MEDS: levoFLOXacin IV 750 MG/150 ML BAG 100 MG IV (09:33)
[2022-09-19] MEDS: 0.9% Saline Lock 10 ML Syringe IV (09:33)
[2022-09-19] MEDS: Gabapentin 100 MG Capsule PO (09:33)
[2022-09-19] MEDS: Menthol/Lanolin/Calamine/Znox 113 GM Tube 1 APPLIC TOPICAL ×2 (09:50→14:25)
--- NOTE | 2022-09-19 12:35 | TREXTCAR_ITS ---
Diet Diet Order/Speech Therapy: 09/17/22 04:25 Diet: Cardiac - Heart Healthy Food consistency:: Regular Liquid Consistency:: Regular/Thin Type of Dietary Supplement:: Napoleon Diet Comments: orange napoleon w/ breakfast and dinner; 240mL nerpo w/ lunch vanilla Routine Orders/Code Status Routine Lab Work: CBC (weekly) and BMP (weekly) Code Status: Full Code Wound(s) Right Buttock: Wound Type: Pressure Injury Left Buttock: Wound Type: Pressure Injury Right Wilder: Wound Type: Abrasion Right Thigh: Wound Type: Skin Tear Dressing Change: Adaptic RLQ Abdomen: Wound Type: open wound (unknown etiology) Dressing Change: Dakins moistened gauze right ischium: Wound Type: Pressure Injury Dressing Change: Dakins moistened gauze left ischium: Wound Type: Pressure Injury Dressing Change: Dakins moistened gauze Therapies Extremity Affected:: Bilateral Lower Physical Therapy: Eval and Treat Occupational Therapy: Eval and Treat Problem/Diagnosis (1) Sepsis: Status: Acute Code(s): A41.9 - Sepsis, unspecified organism Plan: Acute Sepsis (tachycardia, hypotension with systolic less than 90, tachypnea, positive source of infection, lactic acidosis) with chronic nephrostomy tube: Will admit patient to the ICU to be cautious although patient does tend to run low, continue judicious hydration given underlying CHF history with lactic acid trending per facility protocol, maintain on cardiac monitoring, IV Levaquin given allergies and review of most recent culture with pending Cx w ith de-escalation/alteration of antibiotic therapy once this results, will stress dose with IV hydrocortisone, blood culturethus far negative. UCx showing proteus. DC levofloxacin (2) Acute UTI: Status: Acute Code(s): N39.0 - Urinary tract infection, site not specified Plan: 2/ nephrostomy tube On IV levofloxacin s/p right nephrostomy tube changed on 09/17 Culture showing Proteus mirabilis. (3) Decubitus ulcer: Status: Acute Code(s): L89.90 - Pressure ulcer of unspecified site, unspecified stage Plan: Chronic pressure ulcers: Frequent position changes, barrier cream, continue Dakin's solution with packing, wound RN consultation. Continue wound care. No clear sign of infection at this time. (4) Chronic hypotension: Status: Chronic Code(s): I95.89 - Other hypotension Plan: Chronic hypotension with suspected underlying adrenal insufficiency: Not clear on patient medical history from skilled facility but patient is maintained on chronic midodrine as well as hydrocortisone oral daily regimen thus suspect underlying adrenal insufficiency, will continue midodrine Change IV hydrocortisone to PO and wean down to his home dose of 5mg. Plan The patient is a 26 /o M w/ PMHx: Spina bifida w/ paraplegic immobility syndrome w/ chronic indwelling catheter following w/ Urologist at [facility] w/ history of nephrolithiasis w/ stents in the past, Chronic normocytic anemia/iron deficiency anemia, Chronic Systolic CHF, Hx Pericardial Effusion, Secondary Pulmonary HTN, SOPHIA, Morbid Obesity, Chronic Hypotension on Midodrine with suspected underlying adrenal insufficiency, ESRD on HD who presents to the [facility] ED on 09/17/22 with history of most recent nephrostomy tube replacement 6 weeks prior reportedly at [facility] with recommendation at that time for change out in 4 to 6 to 8 weeks locally however its unclear who this has been set up with who now presents with onset of fever and chills starting approximately 7 PM on day prior to presentation with blood pressure mildly decreased from his baseline. Chronic conditions: * ESRD: Admission BUN/creatinine 23/2.38, following with Dr. Tinsley, noted dialysis days Wednesday, Wednesday, Wednesday, Wednesday last note noted 02/13/2022 admission with [facility] at that time felt secondary to ATN secondary to severe sepsis transferred at that time to tertiary care center for nephrostomy tube placements with noted bilateral hydronephrosis eventually worsening and transitioning to dialysis, will continue home HD regimen, nephrology consulted, pending. * Chronic systolic CHF: 09/30/2018 echocardiogram with normal LV size, LV systolic function normal, EF 55%, moderate concentric LVH, no evidence of any pericardial effusion. Patient with concurrent history of hypertension on midodrine therapy which complicates patient underlying CHF history, will continue aspirin, not on statin therapy, not on beta-ángel nor RAMIRO inhibitor/ARB given progressive renal disease as well as hypertension. We will continue judicious hydration given his history. * Chronic normocytic anemia/iron deficiency anemia: Admission hemoglobin 9.5, baseline hemoglobin more recently noted to be 8-9, most recent prior to this 09/14/2022 hemoglobin 8.2 however in 01/2022 hemoglobin 1112 at that time but has vacillated over the years, repeat CBC in AM, continue supplementation. * Spina bifida w/ paraplegic: Patient w/ as noted chronic indwelling catheter, following w/ Urologist at [facility] w/ history of nephrolithiasis w/ stents, 01/2022 admission as noted with eventual transfer for nephrostomy tube placements with eventual end-stage renal disease requiring dialysis. Frequent position changes. PT, OT consulted. * Chronic bilateral lower extremity edema: Patient from prior records frequently sleeping upright in a chair with poor food choices heavy and salts, will place neck ramiro wraps, elevate bilateral lower extremity, improved from prior evaluations. * Morbid Obesity: BMI >40 * SOPHIA: We will continue CPAP nightly. * Anxiety and depression: We will continue patient home sertraline regimen. * GERD: We will continue patient home PPI. DVT prophylaxis: Heparin. CODE STATUS: Full code per facility paperwork. DC to facility today. Allergies/Procedures Done in Hospital Allergies ampicillin Allergy (Verified 09/17/22 01:38) rash cefepime Allergy (Verified 09/17/22 01:38) Hives daptomycin Allergy (Verified 09/17/22 01:38) Hives fentanyl Allergy (Verified 09/17/22 01:38) Rash latex Allergy (Verified 09/17/22 01:38) Hives meropenem Allergy (Verified 09/17/22 01:38) rash morphine Allergy (Verified 09/17/22 01:38) Hives sulbactam [From Unasyn] Allergy (Verified 09/17/22 01:38) Hives vancomycin Allergy (Verified 09/17/22 01:38) Hives Procedures: - (nephrostomy tube change) Type of Care/Length of Stay Estimated LOS: More Than 30 Days Type of Care Needed: Skilled Rehab Potential: Fair Prognosis: Fair Additional Orders/Day of Discharge Day of Discharge: 09/19/22 Dietary and Speech Recommendations Dietitian Recommendations/Changes: continue cardiac diet; will monitor intake/labs and adjust diet as indicated. Napoleon BID for wounds, Nepro CarbSteady ONS 1x/day for additional protein if consumed. Discharge Plan Admission Admit Date/Time: 09/17/22 03:22 Primary Reason for Your Visit: sepsis UTI Attending Provider: Adam Allen Primary Care Provider: Rebeca Stephenson Consulting Providers: Maureen Ferguson ; Laurent Bernal ; Cruz Ocampo Instructions Additional Instructions / Restrictions: Dialysis 4x/week. (Wednesday, Wednesday, Wednesday, Wednesday). Discharge Orders/Prescriptions Prescriptions: New levofloxacin 750 mg tablet 750 mg PO Q48H Qty: 5 0RF Rx Instructions: start 09/21/2022 hydrocortisone 10 mg tablet 10 mg PO TID Qty: 30 0RF Rx Instructions: 2 tabs (20mg) twice daily for 3 days, then resume normal routine. Continued acetaminophen 325 mg Tablet 650 mg PO Q4H PRN (Reason: PAIN/FEVER) acetaminophen 650 mg Suppository 650 mg MD Q4H PRN (Reason: PAIN/FEVER) albuterol sulfate 2.5 mg /3 mL (0.083 %) Solution For Nebulization 2.5 mg INHALATION Q4H PRN (Reason: Shortness Of Breath) dextrose [Glucose Gel] 40 % Gel 15 g PO Q15M PRN (Reason: Hypoglycemia) Rx Instructions: until symptoms of low blood sugar are controlled loperamide 2 mg Tablet 2 mg PO Q6H PRN (Reason: Diarrhea) melatonin 3 mg Tablet 3 mg PO QHS magnesium hydroxide [Milk of Magnesia] 400 mg/5 mL Suspension 400 mg PO DAILY PRN (Reason: Constipation) trazodone 100 mg Tablet 100 mg PO QHS bisacodyl 10 mg Suppository 10 mg MD DAILY PRN (Reason: Constipation) pantoprazole 40 mg Tablet,Delayed Release (Dr/Ec) 40 mg PO BID ferrous sulfate 325 mg (65 mg iron) Tablet 325 mg PO DAILY aluminum-magnesium hydroxide 225-200 mg/5 mL Suspension 30 ml PO Q4H PRN PRN (Reason: GI DISTRESS) Fleet Enema 19-7 gram/118 mL Enema 118 ml MD DAILY PRN (Reason: Constipation) sertraline 25 mg Tablet 25 mg PO DAILY Renal-Adal 0.8 mg Tablet 1 tab PO DAILY gabapentin 100 mg Capsule 100 mg PO DAILY Dakin's Solution 0.25 % Solution 1 applic TOPICAL DAILY midodrine 10 mg Tablet 20 mg PO TID Rx Instructions: do not give last dose of day after 6PM or within 4 hrs of bedtime guaifenesin 200 mg/5 mL Liquid 400 mg PO Q4H PRN (Reason: Cough) heparin, porcine (PF) 5,000 unit/mL Syringe 5,000 unit SUBCUT Q8H guaifenesin [Mucinex] 600 mg Tablet Extended Release 12hr 600 mg PO BID Held hydrocortisone 5 mg Tablet 5 mg PO DAILY Hold Instructions: Resume on 09/23/22. Rx Instructions: MORNING WITH 10MNG TABLET hydrocortisone 10 mg Tablet 10 mg PO BID Hold Instructions: Resume on 09/23/22. Rx Instructions: MORNING AND EVENING Referrals / Follow Up: Rebeca Stephenson MD [Primary Care Provider] - Cameron Romero DO [Med Staff - Machine Sorter] - Within 2 Weeks Disposition Disposition (needs filled in before D/C Order can be placed): [facility] (1) Decubitus ulcer Qualifiers: Pressure injury location: buttock Laterality: unspecified laterality
--- NOTE | 2022-09-19 12:51 | DS.PCM_ITS ---
Providers Date of Admission: 09/17/22 Primary Care Physician: Dr. 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 / Pulmonary Medicine Routine Consulting Provider: Laurent Bernal Reason for Consult: Sepsis, UTI EMERGENT Consult: No Notified: Yes Date Notified: 09/17/22 Time Notified: 03:56 Method of Notification: Text Consult: Nephrology Routine Consulting Provider: Cruz Ocampo Reason for Consult: ESRD on HD EMERGENT Consult: No Notified: Yes Date Notified: 09/17/22 Time Notified: 03:24 Method of Notification: Verbal Consult: Onc/Wound/verification rep Routine Comment: Reason for Consult:: Pressure ulcers Reason For Visit: SEPSIS, UTI Diagnosis Discharge Diagnosis (1) Sepsis: Status: Acute Code(s): A41.9 - Sepsis, unspecified organism Plan: Acute Sepsis (tachycardia, hypotension with systolic less than 90, tachypnea, positive source of infection, lactic acidosis) with chronic nephrostomy tube: Will admit patient to the ICU to be cautious although patient does tend to run low, continue judicious hydration given underlying CHF history with lactic acid trending per facility protocol, maintain on cardiac monitoring, IV Levaquin given allergies and review of most recent culture with pending Cx with de-escalation/alteration of antibiotic therapy once this results, will stress dose with IV hydrocortisone, blood culturethus far negative. UCx showing proteus. DC levofloxacin (2) Acute UTI: Status: Acute Code(s): N39.0 - Urinary tract infection, site not specified Plan: 2/2 nephrostomy tube On IV levofloxacin s/p right nephrostomy tube changed on 09/17 Culture showing Proteus mirabilis. (3) Decubitus ulcer: Status: Acute Code(s): L89.90 - Pressure ulcer of unspecified site, unspecified stage Qualifiers: Pressure injury location: buttock Laterality: unspecified laterality Plan: Chronic pressure ulcers: Frequent position changes, barrier cream, continue Dakin's solution with packing, wound RN consultation. Continue wound care. No clear sign of infection at this time. (4) Chronic hypotension: Status: Chronic Code(s): I95.89 - Other hypotension Plan: Chronic hypotension with suspected underlying adrenal insufficiency: Not clear on patient medical history from skilled facility but patient is maintained on chronic midodrine as well as hydrocortisone oral daily regimen thus suspect underlying adrenal insufficiency, will continue midodrine Change IV hydrocortisone to PO and wean down to his home dose of 5mg. Plan The patient is a 26 /o M w/ PMHx: Spina bifida w/ paraplegic immobility syndrome w/ chronic indwelling catheter following w/ Urologist at [facility] w/ history of nephrolithiasis w/ stents in the past, Chronic normocytic anemia/iron deficiency anemia, Chronic Systolic CHF, Hx Pericardial Effusion, Secondary Pulmonary HTN, SOPHIA, Morbid Obesity, Chronic Hypotension on Midodrine with suspected underlying adrenal insufficiency, ESRD on HD who presents to the [facility] ED on 09/17/22 with history of most recent nephrostomy tube replacement 6 weeks prior reportedly at [facility] with recommendation at that time for change out in 4 to 6 to 8 weeks locally however its unclear who this has been set up with who now presents with onset of fever and chills starting approximately 7 PM on day prior to presentation with blood pressure mildly decreased from his baseline. Chronic conditions: * ESRD: Admission BUN/creatinine 23/2.38, following with Dr. Tinsley, noted dialysis days Wednesday, Wednesday, Wednesday, Wednesday last note noted 02/13/2022 admission with [facility] at that time felt secondary to ATN secondary to severe sepsis transferred at that time to tertiary care center for nephrostomy tube placements with noted bilateral hydronephrosis eventually worsening and t ransitioning to dialysis, will continue home HD regimen, nephrology consulted, pending. * Chronic systolic CHF: 09/30/2018 echocardiogram with normal LV size, LV systolic function normal, EF 55%, moderate concentric LVH, no evidence of any pericardial effusion. Patient with concurrent history of hypertension on midodrine therapy which complicates patient underlying CHF history, will continue aspirin, not on statin therapy, not on beta-ángel nor RAMIRO inhibitor/ARB given progressive renal disease as well as hypertension. We will continue judicious hydration given his history. * Chronic normocytic anemia/iron deficiency anemia: Admission hemoglobin 9.5, baseline hemoglobin more recently noted to be 8-9, most recent prior to this 09/14/2022 hemoglobin 8.2 however in 01/2022 hemoglobin 1112 at that time but has vacillated over the years, repeat CBC in AM, continue supplementation. * Spina bifida w/ paraplegic: Patient w/ as noted chronic indwelling catheter, following w/ Urologist at [facility] w/ history of nephrolithiasis w/ stents, 01/2022 admission as noted with eventual transfer for nephrostomy tube placements with eventual end-stage renal disease requiring dialysis. Frequent position changes. PT, OT consulted. * Chronic bilateral lower extremity edema: Patient from prior records frequently sleeping upright in a chair with poor food choices heavy and salts, will place neck ramiro wraps, elevate bilateral lower extremity, improved from prior evaluations. * Morbid Obesity: BMI >40 * SOPHIA: We will continue CPAP nightly. * Anxiety and depression: We will continue patient home sertraline regimen. * GERD: We will continue patient home PPI. DVT prophylaxis: Heparin. CODE STATUS: Full code per facility paperwork. DC to facility today. Medications at Discharge Home Medications acetaminophen 325 mg tablet 650 mg PO Q4H PRN PAIN/FEVER 09/17/22 acetaminophen 650 mg rectal suppository 650 mg TX Q4H PRN PAIN/FEVER 09/17/22 albuterol sulfate 2.5 mg/3 mL (0.083 %) solution for nebulization 2.5 mg inhalation Q4H PRN Shortness Of Breath 09/17/22 aluminum-magnesium hydroxide 225 mg-200 mg/5 mL oral suspension 30 ml PO Q4H PRN PRN GI DISTRESS 09/17/22 bisacodyl 10 mg rectal suppository 10 mg TX DAILY PRN Constipation 09/17/22 dextrose 40 % oral gel (Glucose Gel) 15 g PO Q15M PRN Hypoglycemia 09/17/22 ferrous sulfate 325 mg (65 mg iron) tablet 325 mg PO DAILY 09/17/22 gabapentin 100 mg capsule 100 mg PO DAILY 09/17/22 guaifenesin 200 mg/5 mL oral liquid 400 mg PO Q4H PRN Cough 09/17/22 guaifenesin 600 mg tablet, extended release 12 hr (Mucinex) 600 mg PO BID 09/17/22 heparin, porcine (PF) 5,000 unit/mL injection syringe 5,000 unit subcut Q8H 09/17/22 hydrocortisone 10 mg tablet 10 mg PO BID 09/17/22 hydrocortisone 5 mg tablet 5 mg PO DAILY 09/17/22 loperamide 2 mg tablet 2 mg PO Q6H PRN Diarrhea 09/17/22 magnesium hydroxide 400 mg/5 mL oral suspension (Milk of Magnesia) 400 mg PO DAILY PRN Constipation 09/17/22 melatonin 3 mg tablet 3 mg PO QHS 09/17/22 midodrine 10 mg tablet 20 mg PO TID 09/17/22 pantoprazole 40 mg tablet,delayed release 40 mg PO BID 09/17/22 sertraline 25 mg tablet 25 mg PO DAILY 09/17/22 sodium hypochlorite 0.25 % solution (Dakin's Solution) 1 applic topical DAILY 09/17/22 sodium phosphates 19 gram-7 gram/118 mL enema (Fleet Enema) 118 ml TX DAILY PRN Constipation 09/17/22 trazodone 100 mg tablet 100 mg PO QHS 09/17/22 vitamin B complex-vitamin C-folic acid 0.8 mg tablet (Renal-Adal) 1 tab PO DAILY 09/17/22 hydrocortisone 10 mg tablet 10 mg PO TID #30 tabs 09/19/22 levofloxacin 750 mg tablet 750 mg PO Q48H #5 tabs 09/19/22 Hospital Course Operations None Procedures - (nephrostomy tube change) Summary of Care Provided Minutes Spent on Discharge: 35 Hospital Course: 18-year-old male presents with sepsis secondary to UTI. Patient was found to have nephrostomy tube associated UTI secondary to Proteus mirabilis. Sensitive levofloxacin which is what he was started on. Patient has noted extensive history of allergies. Patient steroids were increased and to 100 twice daily of hydrocortisone. Patient has remained stable. Patient did have a nephrostomy tube change. Today, the patient is doing much better, his white count still elevated but is trending downwards. Should be noted that his white count has been elevated at least since July. Patient continue with levofloxacin which she has been on here in the hospital with renal dosing. Patient is end-stage renal disease as well as on hemodialysis 4 times a week on Mondays, Wednesday, Wednesday and Wednesday. Patient did have dialysis while he was here. Patient will be discharged back to [facility] in stable condition. Weight / BMI Weight Weight: 101 kg Body Mass Index (BMI) 40.9 ABG / Lab / Microbiology Data Result Diagrams: 09/19/22 03:34 09/19/22 03:34 Laboratory: Laboratory Results - last 24 hr 09/19/22 03:34: Sodium 137, Potassium 4.8, Chloride 101, Carbon Dioxide 28.0, Anion Gap 8, BUN 45 H, Creatinine 2.48 H, Estim Creat Clear Calc 32.80, Est GFR (MDRD) Af Amer 40 L, Est GFR (MDRD) Non-Af 33 L, BUN/Creatinine Ratio 18.1, Glucose 135 H, Calcium 9.4 09/19/22 03:34: WBC 18.9 H, RBC 3.67 L, Hgb 9.4 L, Hct 32.5 L, MCV 88.6, MCH 25.6 L, MCHC 28.9 L, RDW Std Deviation 61.7 H, RDW Coeff of Francisco 19.1 H, Plt Count 499 H, MPV 10.3, Immature Gran % (Auto) 0.900, Neut % (Auto) 89.3 H, Lymph % (Auto) 5.8 L, [place] % (Auto) 3.4, Eos % (Auto) 0.3, Baso % (Auto) 0.3, Absolute Neuts (auto) 16.9 H, Absolute Lymphs (auto) 1.10, Nucleated RBC % 0 Microbiology: Microbiology 09/17/22 02:00 Blood Culture (Wb) - Right Hand Blood Culture - Preliminary 09/17/22 01:55 Blood Culture (Wb) - Right Forearm Blood Culture - Preliminary No growth in 48 hours. 09/17/22 02:04 Urine, Clean Catch Urine Culture - Final Proteus mirabilis 09/17/22 02:05 Nasal Secretion SARS-CoV-2 & FLU Antigen (Rapid) - Final Meaningful Use Info Meaningful Use Diagnoses (Choose all that apply): None applicable Discharge Plan Admission Admit Date/Time: 09/17/22 03:22 Primary Reason for Your Visit: sepsis UTI Attending Provider: Adam Allen Primary Care Provider: Rebeca Stephenson Consulting Providers: Maureen Ferguson ; Laurent Bernal ; Cruz Ocampo Instructions Additional Instructions / Restrictions: Dialysis 4x/week. (Wednesday, Wednesday, Wednesday, Wednesday). Discharge Orders/Prescriptions Prescriptions: New levofloxacin 750 mg tablet 750 mg PO Q48H Qty: 5 0RF Rx Instructions: start 09/21/2022 hydrocortisone 10 mg tablet 10 mg PO TID Qty: 30 0RF Rx Instructions: 2 tabs (20mg) twice daily for 3 days, then resume normal routine. Continued acetaminophen 325 mg Tablet 650 mg PO Q4H PRN (Reason: PAIN/FEVER) acetaminophen 650 mg Suppository 650 mg TX Q4H PRN (Reason: PAIN/FEVER) albuterol sulfate 2.5 mg /3 mL (0.083 %) Solution For Nebulization 2.5 mg INHALATION Q4H PRN (Reason: Shortness Of Breath) dextrose [Glucose Gel] 40 % Gel 15 g PO Q15M PRN (Reason: Hypoglycemia) Rx Instructions: until symptoms of low blood sugar are controlled loperamide 2 mg Tablet 2 mg PO Q6H PRN (Reason: Diarrhea) melatonin 3 mg Tablet 3 mg PO QHS magnesium hydroxide [Milk of Magnesia] 400 mg/5 mL Suspension 400 mg PO DAILY PRN (Reason: Constipation) trazodone 100 mg Tablet 100 mg PO QHS bisacodyl 10 mg Suppository 10 mg TX DAILY PRN (Reason: Constipation) pantoprazole 40 mg Tablet,Delayed Release (Dr/Ec) 40 mg PO BID ferrous sulfate 325 mg (65 mg iron) Tablet 325 mg PO DAILY aluminum-magnesium hydroxide 225-200 mg/5 mL Suspension 30 ml PO Q4H PRN PRN (Reason: GI DISTRESS) Fleet Enema 19-7 gram/118 mL Enema 118 ml TX DAILY PRN (Reason: Constipation) sertraline 25 mg Tablet 25 mg PO DAILY Renal-Adal 0.8 mg Tablet 1 tab PO DAILY gabapentin 100 mg Capsule 100 mg PO DAILY Dakin's Solution 0.25 % Solution 1 applic TOPICAL DAILY midodrine 10 mg Tablet 20 mg PO TID Rx Instructions: do not give last dose of day after 6PM or within 4 hrs of bedtime guaifenesin 200 mg/5 mL Liquid 400 mg PO Q4H PRN (Reason: Cough) heparin, porcine (PF) 5,000 unit/mL Syringe 5,000 unit SUBCUT Q8H guaifenesin [Mucinex] 600 mg Tablet Extended Release 12hr 600 mg PO BID Held hydrocortisone 5 mg Tablet 5 mg PO DAILY Hold Instructions: Resume on 09/23/22. Rx Instructions: MORNING WITH 10MNG TABLET hydrocortisone 10 mg Tablet 10 mg PO BID Hold Instructions: Resume on 09/23/22. Rx Instructions: MORNING AND EVENING Referrals / Follow Up: Gudla,Rebeca, MD [Primary Care Provider] - Cameron Romero DO [Med Staff - Portable Canteen Operator] - Within 2 Weeks Disposition Disposition (needs filled in before D/C Order can be placed): Care Home Facility Charges/Coding Visit Charges Inpatient E&M: 35585 Disch Hosp >30min
--- NOTE | 2022-09-19 13:03 | NURSING ---
I spoke with Afua at [facility] to inform her that the pt will be d/c today and transport is scheduled for 1500.
--- NOTE | 2022-09-19 13:05 | NURSING ---
I left a message for Maida pt's mom to return a phone call to [facility] to inform her that the pt will be d/c today and picked up by transport at 1500.
--- NOTE | 2022-09-19 13:33 | NURSING ---
report called to [facility] Dorian rn
[2022-09-19 14:28] VITALS: BP 125/84; PULSE 91; RESP 16; TEMP 37; O2SAT 96
== END 2022-09-19 15:25 | disposition skilled nursing facility (03) | DRG 698 ==
LOC: ED 03:19 → ICU 04:17 → PCU 09-18 14:28
PROVIDERS: Admitting Provider Family Medicine; Emergency Provider Emergency Medicine; PCP Internal Medicine
DX: T83.512A Infection and inflammatory reaction due to nephrostomy catheter, initial encounter (principal); A41.9 Sepsis, unspecified organism; L89.214 Pressure ulcer of right hip, stage 4; L89.224 Pressure ulcer of left hip, stage 4; N18.6 End stage renal disease; E27.40 Unspecified adrenocortical insufficiency; G82.20 Paraplegia, unspecified; I13.2 Hypertensive heart and chronic kidney disease with heart failure and with stage 5 chronic kidney disease, or end stage renal disease; I50.22 Chronic systolic (congestive) heart failure; Z68.41 Body mass index [BMI] 40.0-44.9, adult; D63.8 Anemia in other chronic diseases classified elsewhere; I95.89 Other hypotension; I27.29 Other secondary pulmonary hypertension; Z99.2 Dependence on renal dialysis; Q05.9 Spina bifida, unspecified; E66.01 Morbid (severe) obesity due to excess calories; I50.812 Chronic right heart failure; D50.9 Iron deficiency anemia, unspecified; G47.33 Obstructive sleep apnea (adult) (pediatric); F41.9 Anxiety disorder, unspecified; F32.A Depression, unspecified; Z79.01 Long term (current) use of anticoagulants; Z79.899 Other long term (current) drug therapy; Z20.822 Contact with and (suspected) exposure to COVID-19
CPT/HCPCS: 36415; 50435; 71045; 80048; 80053; 81001; 83605; 83735; 84100; 85025; 87040; 87077; 87086; 87088; 87186; 87428; 94002; 94003; 94668; 94762; 97166; 97535; 97802; 99252; 99285; J7030; J7050; Q9967; A4216; G0463

== ENCOUNTER 2022-10-28 19:14 | Inpatient (IN) | payer MEDICARE, MEDICAID, SELFPAY ==
[2022-10-28 19:17] VITALS: BP 95/50; PULSE 106; RESP 18; TEMP 37.2; O2SAT 95
--- NOTE | 2022-10-28 19:40 | EKG12_ITS ---
Test Reason : FEVER Blood Pressure : / mmHG Vent. Rate : 103 BPM Atrial Rate : 000 BPM P-R Int : 000 ms QRS Dur : 080 ms QT Int : 360 ms P-R-T Axes : 000 045 021 degrees QTc Int : 471 ms Sinus tachycardia Confirmed by EDITA DANIEL, MATEO ([id number]), managing editor CHARITO WAGGONER ([id number]) on 10/29/2022 10:43:39 AM Referred By: Confirmed By:MATEO KOHLER MD
--- NOTE | 2022-10-28 19:42 | EDS_ITS ---
HPI History of Present Illness Chief Complaint: Fever Informant: patient Narrative Narrative: Patient presents secondary to concerns for sepsis. Patient was diagnosed with C. difficile approximately 10 days ago. He is on an oral antibiotic but he does not know the name. I presume this to be Flagyl as he does have a documented allergy to vancomycin. Patient reportedly had low blood pressure today with systolic pressures in the 90s. He states his systolic pressure is usually between 100-110. His oxygen saturation also dropped to 85 today although patient states he was not feeling short of breath at the time. They placed him on nasal cannula. Family states in the past they have let his infections go too long and he ended up with sepsis. They were concerned for this of brought him in. He is currently at [facility]. Patient had a CBC obtained on Wednesday, 2 days ago, there revealed a white count of 23,000. He had chemistry studies obtained today but a repeat CBC was not performed. 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, stage 3 Pressure ulcer Right-sided heart failure Secondary pulmonary arterial hypertension Spina bifida Systolic CHF Umbilical hernia Home Medications acetaminophen 325 mg tablet 650 mg PO Q4H PRN PAIN/FEVER 09/17/22 [History Last Taken Unknown] acetaminophen 650 mg rectal suppository 650 mg LA Q4H PRN PAIN/FEVER 09/17/22 [History Last Taken Unknown] albuterol sulfate 2.5 mg/3 mL (0.083 %) solution for nebulization 2.5 mg inhalation Q4H PRN Shortness Of Breath 09/17/22 [History Last Taken Unknown] aluminum-magnesium hydroxide 225 mg-200 mg/5 mL oral suspension 30 ml PO Q4H PRN PRN GI DISTRESS 09/17/22 [History Last Taken Unknown] bisacodyl 10 mg rectal suppository 10 mg LA DAILY PRN Constipation 09/17/22 [History Last Taken Unknown] dextrose 40 % oral gel (Glucose Gel) 15 g PO Q15M PRN Hypoglycemia 09/17/22 [History Last Taken Unknown] ferrous sulfate 325 mg (65 mg iron) tablet 325 mg PO DAILY 09/17/22 [History Last Taken Unknown] gabapentin 100 mg capsule 100 mg PO DAILY 09/17/22 [History Last Taken Unknown] guaifenesin 200 mg/5 mL oral liquid 400 mg PO Q4H PRN Cough 09/17/22 [History Last Taken Unknown] guaifenesin 600 mg tablet, extended release 12 hr (Mucinex) 600 mg PO BID 09/17/22 [History Last Taken Unknown] heparin, porcine (PF) 5,000 unit/mL injection syringe 5,000 unit subcut Q8H 09/17/22 [History Last Taken Unknown] hydrocortisone 10 mg tablet 10 mg PO Q12H 09/17/22 [History Last Taken Unknown] hydrocortisone 5 mg tablet 5 mg PO DAILY 09/17/22 [History Last Taken Unknown] loperamide 2 mg tablet 2 mg PO Q6H PRN Diarrhea 09/17/22 [History Last Taken Unknown] magnesium hydroxide 400 mg/5 mL oral suspension (Milk of Magnesia) 400 mg PO DAILY PRN Constipation 09/17/22 [History Last Taken Unknown] melatonin 3 mg tablet 3 mg PO QHS PRN insomnia 09/17/22 [History Last Taken Unknown] midodrine 10 mg tablet 20 mg PO TID 09/17/22 [History Last Taken Unknown] pantoprazole 40 mg tablet,delayed release 40 mg PO BID 09/17/22 [History Last Taken Unknown] sertraline 25 mg tablet 25 mg PO DAILY 09/17/22 [History Last Taken Unknown] sodium hypochlorite 0.25 % solution (Dakin's Solution) 1 applic topical DAILY 09/17/22 [History Last Taken Unknown] sodium phosphates 19 gram-7 gram/118 mL enema (Fleet Enema) 118 ml LA DAILY PRN Constipation 09/17/22 [History Last Taken Unknown] trazodone 100 mg tablet 100 mg PO QHS 09/17/22 [History Last Taken Unknown] vitamin B complex-vitamin C-folic acid 0.8 mg tablet (Renal-Adal) 1 tab PO DAILY 09/17/22 [History Last Taken Unknown] levofloxacin 750 mg tablet 750 mg PO Q48H #5 tabs 09/19/22 [Rx Last Taken Unknown] Lactobacillus rhamnosus GG 10 billion cell capsule (Culturelle) 1 cap PO BID 10/28/22 [History Last Taken Unknown] digestive enzymes (Enzyme Digest capsule) 1 cap PO TID 10/28/22 [History Last Taken Unknown] metronidazole 500 mg tablet 500 mg PO TID 10/28/22 [History Last Taken Unknown] sevelamer carbonate 800 mg tablet (Renvela) 800 mg PO TID 10/28/22 [History Last Taken Unknown] simethicone 80 mg chewable tablet (Gas Relief (simethicone)) 80 mg PO BID PRN gi upset 10/28/22 [History Last Taken Unknown] Allergy/AdvReac Type Severity Reaction Status Date / Time ampicillin Allergy rash Verified 10/28/22 19:20 cefepime Allergy Hives Verified 10/28/22 19:20 daptomycin Allergy Hives Verified 10/28/22 19:20 fentanyl Allergy Rash Verified 10/28/22 19:20 latex Allergy Hives Verified 10/28/22 19:20 meropenem Allergy rash Verified 10/28/22 19:20 morphine Allergy Hives Verified 10/28/22 19:20 sulbactam [From Unasyn] Allergy Hives Verified 10/28/22 19:20 vancomycin Allergy Hives Verified 10/28/22 19:20 Family History Grandfather Heart disease Father Hypertension Mother Hyperlipidemia Surgical History History of back surgery History of foot surgery History of kidney surgery History of ventriculoperitoneal shunting S/P cutaneous-vesicostomy S/P ureteral stent placement Status post laser lithotripsy of ureteral calculus Social History household members: family Smoking Status: Never smoker second hand exposure: Yes alcohol intake: never substance use type: does not use ROS ROS ED Constitutional Constitutional ED: Denies chills or fever(s) Eyes Eyes: Denies change in vision or discharge from eye(s) ENT ENT ED: Denies discharge from eye(s), rhinorrhea or sore throat Cardiovascular Cardiovascular: Denies chest pain or palpitations Respiratory/Chest Respiratory/Chest: Denies cough or dyspnea Gastrointestinal Gastrointestinal: Reports diarrhea; Denies nausea or vomiting Musculoskeletal Musculoskeletal: Reports other Details: Paraplegia Integumentary Denies Abrasions or rash Neurologic Neurologic: Denies headache(s) or weakness Psychiatric Psychiatric: Denies anxiety or depression Allergic/Immunologic Allergic/Immunologic ED: Denies lip swelling or urticaria EXAM Physical Exam Const Vital Signs: 10/28/22 19:17 10/28/22 19:52 10/28/22 20:07 Temperature 99.0 F 98.6 F Temperature Source Temporal Oral Pulse Rate 106 H Respiratory Rate 18 Respiratory Effort Respiratory Pattern Blood Pressure 95/50 L Blood Pressure Mean 65 Pulse Ox 95 Oxygen Delivery Method Nasal Cannula Room Air Oxygen Flow Rate (L/min) 2 10/28/22 20:58 10/28/22 21:24 10/28/22 22:00 Temperature 98.6 F Temperature Source Oral Pulse Rate 105 H 100 Respiratory Rate 30 H 21 H Respiratory Effort Normal Respiratory Pattern Normal Blood Pressure 81/45 L 101/55 L Blood Pressure Mean 57 70 Pulse Ox 98 100 Oxygen Delivery Method Nasal Cannula Nasal Cannula Oxygen Flow Rate (L/min) 2 2 10/28/22 23:42 Temperature Temperature Source Pulse Rate 108 H Respiratory Rate 28 H Respiratory Effort Respiratory Pattern Blood Pressure 77/53 L Blood Pressure Mean 61 Pulse Ox 100 Oxygen Delivery Method Nasal Cannula Oxygen Flow Rate (L/min) 2 Positive well nourished and well developed General Appearance ED: well developed HEENT Reports normocephalic and head/scalp atraumatic Eyes PERRL and EOMs intact bilaterally Neck supple Chest Wall inspection of chest normal and palpation of chest normal Resp normal respiratory effort and clear to auscultation bilaterally Cardio regular rate and regular rhythm GI non-tender GI Narrative: Reducible periumbilical hernia. Large decubitus ulcer. Inspection: abdominal distention Palpation: soft Extremity Extremity Narrative: Lower extremity atrophy secondary to paraplegia. Neuro oriented x3 Neuro Narrative: Chronic paraplegia secondary to spina bifida Sensorium / Orientation: alert Psych mental status grossly normal MDM MDM MDM Narrative Medical decision making narrative: Sepsis work-up was initiated. Blood and urine cultures sent. Given patient's low blood pressure and dialysis status he was given initially a 250 cc IV fluid bolus. With patient having hypoxia a CTA of the chest was obtained to evaluate for PE. CT scan of the abdomen pelvis was also obtained while he was there given patient has recently been treated for colitis. Lab Data Attestation: I reviewed the patient's lab results. Labs: Laboratory Results - last 24 hr 10/28/22 10/28/22 20:00 20:36 WBC 21.6 H RBC 3.63 L Hgb 9.5 L Hct 32.8 L MCV 90.4 MCH 26.2 L MCHC 29.0 L RDW Std Deviation 59.3 H RDW Coeff of Francisco 18.1 H Plt Count 503 H MPV 10.0 Immature Gran % (Auto) 1.300 H Neut % (Auto) 73.6 H Lymph % (Auto) 14.2 L Hudson % (Auto) 8.2 Eos % (Auto) 1.9 Baso % (Auto) 0.8 Absolute Neuts (auto) 15.9 H Absolute Lymphs (auto) 3.07 Nucleated RBC % 0 Differential Comment SCANNED Diff Path Review August foll PT 16.4 H INR 1.3 APTT 40.3 H Sodium 136 Potassium 5.0 Chloride 100 Carbon Dioxide 28.0 Anion Gap 8 BUN 54 H Creatinine 4.22 H Est GFR (MDRD) Af Amer 22 L Est GFR (MDRD) Non-Af 18 L BUN/Creatinine Ratio 12.8 Glucose 128 H Lactic Acid 2.1 H* Calcium 9.5 Total Bilirubin 0.50 AST 16 ALT 10 L Alkaline Phosphatase 176 H Total Protein 8.0 Albumin 2.1 L Globulin 5.9 H Albumin/Globulin Ratio 0.4 L Urine Color Yellow Urine Clarity Cloudy Urine pH 7.0 Ur Specific Hague 1.010 Urine Protein 500 H Urine Glucose (UA) Normal Urine Ketones Negative Urine Occult Blood 50 H Urine Nitrite Negative Urine Bilirubin Negative Urine Urobilinogen Normal Ur Leukocyte Esterase 500 H Urine RBC 5-10 SEEN Urine WBC >100 SEEN Ur Squamous Epith Cells 0 SEEN Urine Bacteria 3+ Urine Mucus 0 SEEN Radiography Diagnostic Testing: Clinical Impression(s) from Imaging Studies Abdomen/Pelvis CT 10/28/22 21:45 IMPRESSION: 1. Right inguinal hernia containing short segment of bowel likely the cecum, which wall thickening and mild stranding which can be a sign of incarceration, cannot exclude strangulation. No bowel obstruction. 2. Suggestion of colonic wall thickening ascending to transverse colon is most likely due to nondistention, colitis less likely. 3. Right nephrostomy tube tip appears to be within the renal parenchyma at the upper pole. No hydronephrosis. Right nephrolithiasis. 4. Left renal pelviectasis with stranding about the renal pelvis is nonspecific, can be seen with inflammatory process pyelitis or pyelonephritis. No hydronephrosis on the left. 5. Marked hepatomegaly significantly increased compared to prior CT. 6. Presumed wound with decubitus ulcer posteriorly overlying the right hip/ischium with findings of possible osteomyelitis. Moderate right hip joint effusion. Cannot exclude septic hip. Smaller left hip joint effusion with likely smaller similar wound on the left. 7. CT chest reported separately. Electronically Signed: Lexi Kidd MD at 22:27 EDT , ADDENDUM: 10/28/22 2240 IMPRESSION: 1. Right inguinal hernia containing short segment of bowel likely the cecum, which wall thickening and mild stranding which can be a sign of incarceration, cannot exclude strangulation. No bowel obstruction. 2. Suggestion of colonic wall thickening ascending to transverse colon is most likely due to nondistention, colitis less likely. 3. Right nephrostomy tube tip appears to be within the renal parenchyma at the upper pole. No hydronephrosis. Right nephrolithiasis. 4. Left renal pelviectasis with stranding about the renal pelvis is nonspecific, can be seen with inflammatory process pyelitis or pyelonephritis. No hydronephrosis on the left. 5. Marked hepatomegaly significantly increased compared to prior CT. 6. Presumed wound with decubitus ulcer posteriorly overlying the right hip/ischium with findings of possible osteomyelitis. Moderate right hip joint effusion. Cannot exclude septic hip. Smaller left hip joint effusion with likely smaller similar wound on the left. 7. CT chest reported separately. N.B. : The above Results were Read Back by Lexi Kidd MD to Cuca Montiel MD, and understanding confirmed on 10/28/2022 22:33:21 (ET). Electronically Signed: Lexi Kidd MD at 22:27 EDT , Chest CTA 10/28/22 21:45 IMPRESSION: Suboptimal study. No definite evidence of pulmonary emboli. Hazy opacities in the lungs nonspecific and may be due to atelectasis, edema, or pneumonitis. Partial compressive atelectasis in the lower lobes. CT abdomen and pelvis reported separately. Electronically Signed: Lexi Kidd MD at 22:13 EDT , EKG Initial EKG: Attestation: I personally reviewed and interpreted this EKG as follows: Interpretation: Sinus Tachycardia (Sinus tach at 103. No acute ischemia.) Treatment and Re-Evaluation :: CBC was a white count of 21.6. This is slightly improved when compared to labs from 2 days ago. Hemoglobin is 9.5 which is stable with his baseline. Chemistry studies reveal a BUN of 54 and a creatinine of 4.22. Patient is dialysis dependent. Lactic acid is slightly elevated at 2.1. LFTs significant only for an alk phos of 176. Urinalysis reveals greater than 100 white cells with 3+ bacteria. This is taken from his nephrostomy bag. Urine and blood cultures have been sent. CTA of the chest reveals no obvious pulmonary embolism. CT scan of the abdomen and pelvis reveals right inguinal hernia with a short segment of bowel and possible stranding. Right nephrostomy tube in pl c[facility]. No hydronephrosis. Hepatomegaly is noted when compared to prior CT scan from a couple years ago. Decubitus ulcer noted with possible osteomyelitis. Fluid noted in the right hip joint. When I spoke with the radiologist her primary concern was for this inguinal hernia. I went back and reexamined the patient. I do not palpate any hernias in the groin line. He has a hernia in the periumbilical region that is soft and reducible. I reviewed the images with Dr. Pham. He examined the patient and agrees the only hernia that he notes is the periumbilical lesion that is soft and reducible. Patient has continued to require repeat doses of IV fluids. He was just given his evening dose of midodrine for blood pressure support. I spoke with the hospitalist and he will be admitted to the ICU for further treatment. Patient has significant antibiotic allergies. He is given a dose of Levaquin which is worked well for his urine in the past as well as a dose of clindamycin for skin given his decubitus ulcers. Stool was sent for C. difficile. Initial test does return positive and we are awaiting toxin test at this time. Critical Care Time Critical Care Time: Yes Critical care time (excluding procedures): 30-74 minutes (40 mins), Including time spent:, Discussing w/Patient &/or Family/Digital Data Analyst, Discussing w/Consultants, Arranging Admission or Transfer and Performing Direct Patient Care at Bedside Discharge Plan Triage Chief Complaint: Fever ED Provider: Cuca Montiel Dx/Rx/DC Orders Clinical Impression: UTI (urinary tract infection), Sepsis, Decubitus ulcer Prescriptions: No Action hydrocortisone 5 mg Tablet 5 mg PO DAILY Hold Instructions: Resume on 09/23/22. Rx Instructions: MORNING WITH 10MNG TABLET acetaminophen 325 mg Tablet 650 mg PO Q4H PRN (Reason: PAIN/FEVER) acetaminophen 650 mg Suppository 650 mg LA Q4H PRN (Reason: PAIN/FEVER) albuterol sulfate 2.5 mg /3 mL (0.083 %) Solution For Nebulization 2.5 mg INHALATION Q4H PRN (Reason: Shortness Of Breath) dextrose [Glucose Gel] 40 % Gel 15 g PO Q15M PRN (Reason: Hypoglycemia) Rx Instructions: until symptoms of low blood sugar are controlled loperamide 2 mg Tablet 2 mg PO Q6H PRN (Reason: Diarrhea) melatonin 3 mg Tablet 3 mg PO QHS PRN (Reason: insomnia) magnesium hydroxide [Milk of Magnesia] 400 mg/5 mL Suspension 400 mg PO DAILY PRN (Reason: Constipation) trazodone 100 mg Tablet 100 mg PO QHS bisacodyl 10 mg Suppository 10 mg LA DAILY PRN (Reason: Constipation) pantoprazole 40 mg Tablet,Delayed Release (Dr/Ec) 40 mg PO BID ferrous sulfate 325 mg (65 mg iron) Tablet 325 mg PO DAILY aluminum-magnesium hydroxide 225-200 mg/5 mL Suspension 30 ml PO Q4H PRN PRN (Reason: GI DISTRESS) Fleet Enema 19-7 gram/118 mL Enema 118 ml LA DAILY PRN (Reason: Constipation) sertraline 25 mg Tablet 25 mg PO DAILY Renal-Adal 0.8 mg Tablet 1 tab PO DAILY gabapentin 100 mg Capsule 100 mg PO DAILY hydrocortisone 10 mg Tablet 10 mg PO Q12H Hold Instructions: Resume on 09/23/22. Dakin's Solution 0.25 % Solution 1 applic TOPICAL DAILY midodrine 10 mg Tablet 20 mg PO TID Rx Instructions: do not give last dose of day after 6PM or within 4 hrs of bedtime guaifenesin 200 mg/5 mL Liquid 400 mg PO Q4H PRN (Reason: Cough) heparin, porcine (PF) 5,000 unit/mL Syringe 5,000 unit SUBCUT Q8H guaifenesin [Mucinex] 600 mg Tablet Extended Release 12hr 600 mg PO BID levofloxacin 750 mg tablet 750 mg PO Q48H Qty: 5 0RF Rx Instructions: start 09/21/2022 metronidazole 500 mg tablet 500 mg PO TID Patient Comments: complete 11/04/22 Culturelle 10 billion cell capsule 1 cap PO BID Rx Instructions: x2 weeks end 11/07/22 Enzyme Digest Capsule 1 cap PO TID Rx Instructions: administer with food; swallow whole; do not crush/chew/dissolve/break/cut sevelamer carbonate [Renvela] 800 mg tablet 800 mg PO TID Rx Instructions: must administer with a meal/food simethicone [Gas Relief (simethicone)] 80 mg tablet,chewable 80 mg PO BID PRN (Reason: gi upset) Primary Care Provider: Rebeca Stephenson Referrals: Rebeca Stephenson MD [Primary Care Provider] -
[2022-10-28 20:07] VITALS: TEMP 37
[2022-10-28 20:17] LABS: Absolute Lymphocyte Count 3.07 X10^3/uL (0.83-4.51); Absolute Neutrophil Count 15.9 X10^3/uL (2.0-7.7); Basophil# 0.18 X10^3/uL; Basophil% 0.8 % (0-1); Eosinophils% 1.9 % (0-5); Hematocrit 32.8 % (40-54); Hemoglobin 9.5 g/dL (13.0-16.5); Lymphocyte # 3.07 X10^3/ul (0.83-4.51); Lymphocyte % 14.2 % (19-41); Mean Corpuscular Hgb 26.2 pg (27.0-32.0); Mean Corpuscular Volume 90.4 fL (80-94); Monocyte# 1.77 X10^3/uL; Monocyte% 8.2 % (0-10); NRBC Flagged by Analyzer 0 % (0-5); Neutrophil % 73.6 % (47-70); POSITIVE DIFFERENTIAL YES; Platelet Count 503 K/mm3 (150-450); RBC Distribution Width CV 18.1 % (11.6-14.6); RBC Distribution Width SD 59.3 fl (35.1-43.9); Red Blood Count 3.63 M/mm3 (4.6-6.2); White Blood Count 21.6 K/mm3 (4.4-11.0)
[2022-10-28 20:20] LABS: Differential Indicated SCAN CRITERIA MET
[2022-10-28 20:36] LABS: ALB/GLOB Ratio 0.4 RATIO (0.9-2.4); AST(SGOT) 16 U/L (15-37); Alanine Aminotransfer ALT/SGPT 10 U/L (16-61); Albumin, Serum 2.1 g/dL (3.2-5.0); Alkaline Phosphatase 176 U/L (45-117); Anion Gap 8 (5-15); BUN 54 mg/dL (7-18); BUN/Creat Ratio 12.8 RATIO (10-20); Calcium,Total 9.5 mg/dL (8.5-10.1); Chloride 100 mmol/L (98-107); Creatinine, Serum 4.22 mg/dL (0.70-1.30); EST Glomerular Filtration Rate 18 mL/min (>60); Est Glom Filt Rate - Afr Amer 22 mL/min (>60); Globulin 5.9 g/dL (2.2-4.2); Glucose 128 mg/dL (74-106); Sodium Level 136 mmol/L (136-145)
[2022-10-28 20:43] LABS: International Normalized Ratio 1.3; Prothrombin Time (Protime)PT. 16.4 SECONDS (11.7-14.9)
[2022-10-28 20:44] LABS: Mucous, Urine 0 SEEN /hpf (<or=2+); Squamous Epithelial Cells - UA 0 SEEN /hpf (0-5)
[2022-10-28 20:44] LABS: Partial Thromboplast Time 40.3 Seconds (24.1-36.2)
[2022-10-28 20:56] LABS: Color, Urine Yellow (Yellow); Glucose, Dipstick Normal (Normal); Ketone-Dipstick Negative (Negative); Leukocyte Esterase-Dipstick 500 /ul (Negative); Nitrite-Dipstick Negative (Negative); Occult Blood-Urine 50 /ul (Negative); Protein-Dipstick 500 mg/dl (Negative); Urine Bilirubin Dipstick Negative (Negative); Urine Clarity Cloudy (Clear); Urine Urobilinogen Normal (Normal)
[2022-10-28 20:58] VITALS: BMI 42.4
[2022-10-28 20:59] LABS: Lactic Acid 2.1 mmol/L (0.4-1.9)
[2022-10-28 21:20] LABS: Bacteria 3+ /hpf (None Seen); Red Blood Cells-Urine 5-10 SEEN /hpf (0-5); White Blood Cells >100 SEEN /hpf (0-5)
[2022-10-28 21:24] VITALS: BP 81/45; PULSE 105; RESP 30; TEMP 37; O2SAT 98
[2022-10-28 21:30] LABS: Differential Comment SCANNED
--- NOTE | 2022-10-28 21:45 | CT_ITS ---
We are attempting to reach an attending provider to discuss findings. An addendum with communication details will be sent when the communication is complete. EXAM: CT Abdomen And Pelvis W/ Contrast Injection HISTORY: colitis TECHNIQUE: Routine protocol CT abdomen pelvis. IV Contrast: IV 100mL Isovue-370 . Oral Contrast: without. Sagittal and coronal images were reconstructed. RADIATION DOSAGE (If Supplied By Facility): CTDIvol = ( 21.72 ) mGy, DLP = ( 1846.79 ) mGycm Individualized dose optimization techniques were used for this CT. COMPARISON: CT abdomen and pelvis 05/21/2017. LIMITATIONS: None. FINDINGS: LOWER CHEST: Reported separately. LIVER: Enlarged, especially the left lobe which is significantly larger compared to previous CT. GALLBLADDER/BILE DUCTS: Unremarkable. PANCREAS: Unremarkable. SPLEEN: Unremarkable. ADRENAL GLANDS: Unremarkable. 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 Right nephrostomy tube with tip appears to be in the upper pole parenchyma superficially, near the renal margin posteriorly, not in the collecting system. Several calculi in the right kidney. No significant hydronephrosis or perinephric stranding. Left kidney with diffuse cortical thinning compared to prior, lobulated contour. Mild fullness of the left renal pelvis with stranding about the renal pelvis and proximal ureter, no significant hydronephrosis. BOWEL / MESENTERY: There is a small right inguinal hernia which contains a short segment of bowel which is likely the cecum, with mild wall thickening, minimal adjacent stranding and fluid in the hernia sac. Suggestion of colonic wall thickening mainly the ascending through transverse colon possibly exaggerated by suboptimal distention. No adjacent stranding. No bowel obstruction. APPENDIX: Not identified. PERITONEUM: No free air. No free fluid. VESSELS: Abdominal aorta is normal caliber. RETROPERITONEUM: Several mildly enlarged lymph nodes largest periaortic level of the left kidney 1.6 cm in short axis, similar to slightly larger compared to prior. REPRODUCTIVE ORGANS: Unremarkable. BLADDER: Not distended. ABDOMINAL WALL: Apparent skin defect or wound posteriorly overlying the right hip/ischial, with superficial collection measures approximately 5 x 2.5 cm axial, with fluid and small foci of air in the collection. This collection may be actually within skinfold or abscess. Smaller similar collection overlying the left ischium. These collections appear larger compared to prior. There is associated marked soft tissue thickening about the right hip joint with right joint effusion, which is increased. Smaller left hip joint effusion. BONES: Chronic deformity of the pelvis and hips. There is focal sclerosis of the right ischium which is similar but increased compared to prior study, just deep to the overlying presumed wound. Surgical hardware throughout the spine with marked kyphoscoliosis. OTHER: None. CT/Abdomen/Pelvis W IV Cont ONLY IMPRESSION: 1. Right inguinal hernia containing short segment of bowel likely the cecum, which wall thickening and mild stranding which can be a sign of incarceration, cannot exclude strangulation. No bowel obstruction. 2. Suggestion of colonic wall thickening ascending to transverse colon is most likely due to nondistention, colitis less likely. 3. Right nephrostomy tube tip appears to be within the renal parenchyma at the upper pole. No hydronephrosis. Right nephrolithiasis. 4. Left renal pelviectasis with stranding about the renal pelvis is nonspecific, can be seen with inflammatory process pyelitis or pyelonephritis. No hydronephrosis on the left. 5. Marked hepatomegaly significantly increased compared to prior CT. 6. Presumed wound with decubitus ulcer posteriorly overlying the right hip/ischium with findings of possible osteomyelitis. Moderate right hip joint effusion. Cannot exclude septic hip. Smaller left hip joint effusion with likely smaller similar wound on the left. 7. CT chest reported separately. Electronically Signed: Lexi Kidd MD at 22:27 EDT ,
--- NOTE | 2022-10-28 21:45 | CT_ITS ---
STUDY: CTA CHEST REASON FOR EXAM: Male, 27 years old. hypoxia RADIATION DOSAGE (If Supplied By Facility): CTDIvol = ( 21.72 ) mGy, DLP = ( 1846.79 ) mGycm TECHNIQUE: The examination was performed with the intravenous administration of IV 100mL Isovue-370. Post-processing of the angiographic images was performed, with multiplanar reformation and 3D reconstruction. Individualized dose optimization techniques were used for this CT. COMPARISON: CT chest 07/14/2018 FINDINGS: Limitations: Significant image degradation due to patient body habitus/scoliosis, artifact from extensive surgical hardware in the spine, and respiratory motion. LUNGS: Low lung volumes. Hazy opacities throughout both lungs. Partial compressive atelectasis in the lower lobes greater on the right. No consolidation. PLEURA: No pleural effusion. No pneumothorax. PULMONARY VESSELS: No definite pulmonary emboli identified. MEDIASTINUM: Unremarkable. HEART: Not enlarged. AORTA/GREAT VESSELS: Thoracic aorta is normal caliber. No aneurysm or dissection. UPPER ABDOMEN: No acute findings. BONES/SOFT TISSUES: Marked kyphoscoliosis with surgical hardware in place. OTHER: None. CT/CTA Chest W/WO Contrast IMPRESSION: Suboptimal study. No definite evidence of pulmonary emboli. Hazy opacities in the lungs nonspecific and may be due to atelectasis, edema, or pneumonitis. Partial compressive atelectasis in the lower lobes. CT abdomen and pelvis reported separately. Electronically Signed: Lexi Kidd MD at 22:13 EDT ,
[2022-10-28 22:00] VITALS: BP 101/55; PULSE 100; RESP 21; O2SAT 100
[2022-10-28] MEDS: Midodrine HCl 5 MG Tablet 20 MG PO (23:34)
[2022-10-28 23:42] VITALS: BP 77/53; PULSE 108; RESP 28; O2SAT 100
--- NOTE | 2022-10-28 23:44 | ED.RN ---
Dr. Montiel aware of pt fluid resuscitation for sepsis. Pt not applicable for fluid due to kidney function.
[2022-10-29] VITALS (20 sets, daily range): BP systolic 80–145; BP diastolic 37–90; PULSE 69–111; RESP 12–31; TEMP 36.2–37.1; O2SAT 93–100; BMI 41.7
--- NOTE | 2022-10-29 00:07 | PCM.HP.STD ---
HPI - General General Date of Admission: 10/29/22 Date of Service: 10/29/22 Chief Complaint: Fever, fatigue, malaise, low BP, transient hypoxia. HPI Narrative The patient is a 27 y/o M w/ PMHx: Spina bifida s/p PROGRAM REP shunt (nonfunctional) w/ paraplegic immobility syndrome w/ chronic indwelling catheter following w/ Urologist at [facility] w/ history of nephrolithiasis w/ stents in the past and chronic right nephrostomy tube with most recent change noted 09/17/2022 during recent prior admission complicated by sepsis and acute complicated urinary infection, Chronic normocytic anemia/iron deficiency anemia, Chronic Systolic CHF, Hx Pericardial Effusion, Secondary Pulmonary HTN, SOPHIA, Morbid Obesity, Chronic Hypotension on Midodrine with suspected underlying adrenal insufficiency, ESRD on HD who presents to the [facility] ED from [facility] on 10/28/22 with history of concern for sepsis per his family with recent diagnosis of C. difficile approximately 10 days prior placed on oral antibiotic although patient did not know the name but it was presumed to be Flagyl given documented vancomycin allergy with desaturation with oxygen dropping to 85 although patient denied dyspnea at that time, placed on nasal cannula with also concern for his blood pressure dropping into the 90s however he does have chronically low blood pressure and his pressures frequently are 90s to 100 range from review of records with also reported CBC most recently on Wednesday with a WBC elevation of 23,000. He denies any recent abdominal pain, nausea or emesis but does report decreased appetite. Work-up in the ED included Tmax 99 with most recent repeat 98.6, heart rate initially 106 with most recent repeat 100, BP initially 95/50 with decreased to 81/45 but most recent 101/55, respiratory rate 98% on 2 L nasal cannula, CBC with WBC 21.6, hemoglobin 9.5, MCV 90.4, platelet 503 with left shift, coags with PT 16.4, INR 1.3, PTT 40.3, CMP with BUN/creatinine 54/4.22, glucose 128, lactic acid 2.1, total bilirubin 0.5, AST/LT 16/10, alk phos 176, urinalysis noted to be cloudy, specific remedy 1.010, protein 500, occult blood 50, nitrite negative, leukocyte Estrace 500 with urine RBCs 5-10, greater than 100 urine WBCs and 3+ urine bacteria, urine culture pending per ED, blood culture x2 pending per ED, C. difficile assay requested per ED physician and pending upon requested evaluation of patient, chest CTA secondary to mild hypoxia noted to be a suboptimal study, no definitive evidence of pulmonary emboli, hazy opacity in the lungs nonspecific secondary to atelectasis, edema or pneumonitis, partially compressive atelectasis in the lower lobes, CT abdomen and pelvis with right inguinal hernia containing a short segment of bowel likely the cecum with wall thickening and mild stranding possibly a sign of incarceration cannot exclude strangulation at this point but no bowel obstruction, suggestion of colonic wall thickening of the ascending to transverse colon likely due to nondistention, colitis less likely, right nephrostomy tube tip appears to be within the renal parenchyma at the upper pole with no evidence of hydronephrosis with right nephrolithiasis noted, left renal pelviectasis with stranding about the renal pelvis is nonspecific but certainly could be seen with inflammatory process like pyelitis or pyelonephritis with no hydronephrosis noted on the left, marked hepatomegaly increased from prior CT, presumed wound with a decubitus ulcer posteriorly overlying the right hip/ischium with findings of possible osteomyelitis, moderate right hip joint effusion, unable to exclude septic hip possibility, small left hip joint effusion with likely small similar wound on the left. In the ED patient administered 1 L normal saline. Given possible acute findings on imaging ED requested general surgery evaluation and Dr. Pham presented to the ED and noted patient with reproducible hernia and no clinical concern for incarcerated hernia. He also reviewed the CT read as well. 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, stage 3 Pressure ulcer Right-sided heart failure Secondary pulmonary arterial hypertension Spina bifida Systolic CHF Umbilical hernia Home Medications acetaminophen 325 mg tablet 650 mg PO Q4H PRN PAIN/FEVER 09/17/22 [History Last Taken Unknown] acetaminophen 650 mg rectal suppository 650 mg CO Q4H PRN PAIN/FEVER 09/17/22 [History Last Taken Unknown] albuterol sulfate 2.5 mg/3 mL (0.083 %) solution for nebulization 2.5 mg inhalation Q4H PRN Shortness Of Breath 09/17/22 [History Last Taken Unknown] aluminum-magnesium hydroxide 225 mg-200 mg/5 mL oral suspension 30 ml PO Q4H PRN PRN GI DISTRESS 09/17/22 [History Last Taken Unknown] bisacodyl 10 mg rectal suppository 10 mg CO DAILY PRN Constipation 09/17/22 [History Last Taken Unknown] dextrose 40 % oral gel (Glucose Gel) 15 g PO Q15M PRN Hypoglycemia 09/17/22 [History Last Taken Unknown] ferrous sulfate 325 mg (65 mg iron) tablet 325 mg PO DAILY 09/17/22 [History Last Taken Unknown] gabapentin 100 mg capsule 100 mg PO DAILY 09/17/22 [History Last Taken Unknown] guaifenesin 200 mg/5 mL oral liquid 400 mg PO Q4H PRN Cough 09/17/22 [History Last Taken Unknown] guaifenesin 600 mg tablet, extended release 12 hr (Mucinex) 600 mg PO BID 09/17/22 [History Last Taken Unknown] heparin, porcine (PF) 5,000 unit/mL injection syringe 5,000 unit subcut Q8H 09/17/22 [History Last Taken Unknown] hydrocortisone 10 mg tablet 10 mg PO Q12H 09/17/22 [History Last Taken Unknown] hydrocortisone 5 mg tablet 5 mg PO DAILY 09/17/22 [History Last Taken Unknown] loperamide 2 mg tablet 2 mg PO Q6H PRN Diarrhea 09/17/22 [History Last Taken Unknown] magnesium hydroxide 400 mg/5 mL oral suspension (Milk of Magnesia) 400 mg PO DAILY PRN Constipation 09/17/22 [History Last Taken Unknown] melatonin 3 mg tablet 3 mg PO QHS PRN insomnia 09/17/22 [History Last Taken Unknown] midodrine 10 mg tablet 20 mg PO TID 09/17/22 [History Last Taken Unknown] pantoprazole 40 mg tablet,delayed release 40 mg PO BID 09/17/22 [History Last Taken Unknown] sertraline 25 mg tablet 25 mg PO DAILY 09/17/22 [History Last Taken Unknown] sodium hypochlorite 0.25 % solution (Dakin's Solution) 1 applic topical DAILY 09/17/22 [History Last Taken Unknown] sodium phosphates 19 gram-7 gram/118 mL enema (Fleet Enema) 118 ml CO DAILY PRN Constipation 09/17/22 [History Last Taken Unknown] trazodone 100 mg tablet 100 mg PO QHS 09/17/22 [History Last Taken Unknown] vitamin B complex-vitamin C-folic acid 0.8 mg tablet (Renal-Adal) 1 tab PO DAILY 09/17/22 [History Last Taken Unknown] levofloxacin 750 mg tablet 750 mg PO Q48H #5 tabs 09/19/22 [Rx Last Taken Unknown] Lactobacillus rhamnosus GG 10 billion cell capsule (Culturelle) 1 cap PO BID 10/28/22 [History Last Taken Unknown] digestive enzymes (Enzyme Digest capsule) 1 cap PO TID 10/28/22 [History Last Taken Unknown] metronidazole 500 mg tablet 500 mg PO TID 10/28/22 [History Last Taken Unknown] sevelamer carbonate 800 mg tablet (Renvela) 800 mg PO TID 10/28/22 [History Last Taken Unknown] simethicone 80 mg chewable tablet (Gas Relief (simethicone)) 80 mg PO BID PRN gi upset 10/28/22 [History Last Taken Unknown] Allergy/AdvReac Type Severity Reaction Status Date / Time ampicillin Allergy rash Verified 10/28/22 19:20 cefepime Allergy Hives Verified 10/28/22 19:20 daptomycin Allergy Hives Verified 10/28/22 19:20 fentanyl Allergy Rash Verified 10/28/22 19:20 latex Allergy Hives Verified 10/28/22 19:20 meropenem Allergy rash Verified 10/28/22 19:20 morphine Allergy Hives Verified 10/28/22 19:20 sulbactam [From Unasyn] Allergy Hives Verified 10/28/22 19:20 vancomycin Allergy Hives Verified 10/28/22 19:20 Family History Grandfather Heart disease Father Hypertension Mother Hyperlipidemia Surgical History History of back surgery History of foot surgery History of kidney surgery History of ventriculoperitoneal shunting S/P cutaneous-vesicostomy S/P ureteral stent placement Status post laser lithotripsy of ureteral calculus Social History household members: family Smoking Status: Never smoker second hand exposure: Yes alcohol intake: never substance use type: does not use ROS ROS Narrative Admission Review of Systems: CONSTITUTIONAL: No weight loss, + fever, chills, weakness or fatigue. HEENT: Eyes: No visual loss, blurred vision, double vision or yellow sclerae. Ears, Nose, Throat: No hearing loss, sneezing, congestion, runny nose or sore throat. SKIN: + chronic stasis/decub ulcers, frequent intertrigo. CARDIOVASCULAR: + Chronic peripheral edema, unchanged. No chest pain, chest pressure or chest discomfort, palpitations, orthopnea, syncopal events. RESPIRATORY: No shortness of breath, cough or sputum, wheezing, hemoptysis. GASTROINTESTINAL: + anorexia, No nausea, vomiting or diarrhea, abdominal pain, melena, BRBPR. GENITOURINARY: + foul smelling urine, nephrostomy tube in place. NEUROLOGICAL: + Spina bifida with chronic paraplegia. No headache, dizziness, syncope, change in bowel or bladder control, seizure. MUSCULOSKELETAL: No muscle, back pain, joint pain or stiffness. HEMATOLOGIC: + anemia, bleeding or bruising. LYMPHATICS: No enlarged nodes. No history of splenectomy. PSYCHIATRIC: No history of depression or anxiety. ENDOCRINOLOGIC: No reports of sweating, cold or heat intolerance. No polyuria or polydipsia. ALLERGIES: + history of hives. Vital Signs Vital Signs Vital Signs: 10/28/22 19:17 10/28/22 19:52 10/28/22 20:07 Temperature 99.0 F 98.6 F Temperature Source Temporal Oral Pulse Rate 106 H Respiratory Rate 18 Respiratory Effort Respiratory Pattern Blood Pressure 95/50 L Blood Pressure Mean 65 Pulse Ox 95 Oxygen Delivery Method Nasal Cannula Room Air Oxygen Flow Rate (L/min) 2 10/28/22 20:58 10/28/22 21:24 10/28/22 22:00 Temperature 98.6 F Temperature Source Oral Pulse Rate 105 H 100 Respiratory Rate 30 H 21 H Respiratory Effort Normal Respiratory Pattern Normal Blood Pressure 81/45 L 101/55 L Blood Pressure Mean 57 70 Pulse Ox 98 100 Oxygen Delivery Method Nasal Cannula Nasal Cannula Oxygen Flow Rate (L/min) 2 2 10/28/22 23:42 Temperature Temperature Source Pulse Rate 108 H Respiratory Rate 28 H Respiratory Effort Respiratory Pattern Blood Pressure 77/53 L Blood Pressure Mean 61 Pulse Ox 100 Oxygen Delivery Method Nasal Cannula Oxygen Flow Rate (L/min) 2 Weight Weight: 231 lb 14.821 oz Body Mass Index (BMI) 42.4 Physical Exam Narrative Physical Examination: General: Awakens to stimuli, alert once awoken, oriented x 3 and cooperative, laying in the ED bed, fatigued appearing, no acute distress. Skin: Normal color, normal turgor, no icterus, no cyanosis except for bilateral lower extremity venous stasis skin changes, chronic stasis decubitus ulcers w/ BL ischial/abdominal region. HEENT: AT/NC, EOMI, PERRLA, mildly dry MM, no carotid bruits or JVD noted; however, thickened neck makes evaluation difficult. Lungs: Diminished, distant, appropriate effort, no rales, ronchi or wheezing. Heart: Mildly tachycardic with regular rhythm; no gallop, rub audible. Abdomen: Soft, morbidly obese, NTTP, no obvious distention but habitus makes evaluation difficult, distant normal bowel sounds, unable to discern HSM secondary to habitus, nephrostomy tube in place. Extremities: No cyanosis, no clubbing, see skin, 1+ pedal edema to mid juarez, similar to his prior presentation, stable. Neurological: Patient awake, alert, oriented as noted, cognitive function appears baseline intact, pupils equally reactive to light and accommodation, cranial nerves grossly normal, chronic significant deficits with paraplegia secondary to underlying spina bifida, strength severely global decreased secondary to acute presentation and underlying chronic comorbidities Psychiatric: Affect appears fatigued, no acute evidence of depressive or anxiety feelings. Results Lab / Micro Data 10/28/22 20:00 10/28/22 20:00 Labs: Laboratory Results - last 24 hr 10/28/22 20:00: WBC 21.6 H, RBC 3.63 L, Hgb 9.5 L, Hct 32.8 L, MCV 90.4, MCH 26.2 L, MCHC 29.0 L, RDW Std Deviation 59.3 H, RDW Coeff of Francisco 18.1 H, Plt Count 503 H, MPV 10.0, Immature Gran % (Auto) 1.300 H, Neut % (Auto) 73.6 H, Lymph % (Auto) 14.2 L, [place] % (Auto) 8.2, Eos % (Auto) 1.9, Baso % (Auto) 0.8, Absolute Neuts (auto) 15.9 H, Absolute Lymphs (auto) 3.07, Nucleated RBC % 0, Differential Comment SCANNED, Diff Path Review August, PT 16.4 H, INR 1.3, APTT 40.3 H, Sodium 136, Potassium 5.0, Chloride 100, Carbon Dioxide 28.0, Anion Gap 8, BUN 54 H, Creatinine 4.22 H, Est GFR (MDRD) Af Amer 22 L, Est GFR (MDRD) Non-Af 18 L, BUN/Creatinine Ratio 12.8, Glucose 128 H, Lactic Acid 2.1 H*, Calcium 9.5, Total Bilirubin 0.50, AST 16, ALT 10 L, Alkaline Phosphatase 176 H, Total Protein 8.0, Albumin 2.1 L, Globulin 5.9 H, Albumin/Globulin Ratio 0.4 L 10/28/22 20:36: Urine Color Yellow, Urine Clarity Cloudy, Urine pH 7.0, Ur Specific Lincoln 1.010, Urine Protein 500 H, Urine Glucose (UA) Normal, Urine Ketones Negative, Urine Occult Blood 50 H, Urine Nitrite Negative, Urine Bilirubin Negative, Urine Urobilinogen Normal, Ur Leukocyte Esterase 500 H, Urine RBC 5-10 SEEN, Urine WBC >100 SEEN, Ur Squamous Epith Cells 0 SEEN, Urine Bacteria 3+, Urine Mucus 0 SEEN Micro: Microbiology 10/28/22 20:36 Stool C. difficile DNA Amplification - Final Radiology Impression Abdomen/Pelvis CT 10/28/22 21:45 IMPRESSION: 1. Right inguinal hernia containing short segment of bowel likely the cecum, which wall thickening and mild stranding which can be a sign of incarceration, cannot exclude strangulation. No bowel obstruction. 2. Suggestion of colonic wall thickening ascending to transverse colon is most likely due to nondistention, colitis less likely. 3. Right nephrostomy tube tip appears to be within the renal parenchyma at the upper pole. No hydronephrosis. Right nephrolithiasis. 4. Left renal pelviectasis with stranding about the renal pelvis is nonspecific, can be seen with inflammatory process pyelitis or pyelonephritis. No hydronephrosis on the left. 5. Marked hepatomegaly significantly increased compared to prior CT. 6. Presumed wound with decubitus ulcer posteriorly overlying the right hip/ischium with findings of possible osteomyelitis. Moderate right hip joint effusion. Cannot exclude septic hip. Smaller left hip joint effusion with likely smaller similar wound on the left. 7. CT chest reported separately. Electronically Signed: Lexi Kidd MD at 22:27 EDT , ADDENDUM: 10/28/22 2240 IMPRESSION: 1. Right inguinal hernia containing short segment of bowel likely the cecum, which wall thickening and mild stranding which can be a sign of incarceration, cannot exclude strangulation. No bowel obstruction. 2. Suggestion of colonic wall thickening ascending to transverse colon is most likely due to nondistention, colitis less likely. 3. Right nephrostomy tube tip appears to be within the renal parenchyma at the upper pole. No hydronephrosis. Right nephrolithiasis. 4. Left renal pelviectasis with stranding about the renal pelvis is nonspecific, can be seen with inflammatory process pyelitis or pyelonephritis. No hydronephrosis on the left. 5. Marked hepatomegaly significantly increased compared to prior CT. 6. Presumed wound with decubitus ulcer posteriorly overlying the right hip/ischium with findings of possible osteomyelitis. Moderate right hip joint effusion. Cannot exclude septic hip. Smaller left hip joint effusion with likely smaller similar wound on the left. 7. CT chest reported separately. N.B. : The above Results were Read Back by Lexi Kidd MD to Cuca Montiel MD, and understanding confirmed on 10/28/2022 22:33:21 (ET). Electronically Signed: Lexi Kidd MD at 22:27 EDT , Chest CTA 10/28/22 21:45 IMPRESSION: Suboptimal study. No definite evidence of pulmonary emboli. Hazy opacities in the lungs nonspecific and may be due to atelectasis, edema, or pneumonitis. Partial compressive atelectasis in the lower lobes. CT abdomen and pelvis reported separately. Electronically Signed: Lexi Kidd MD at 22:13 EDT , Assessment & Plan Assessment/Plan (1) UTI (urinary tract infection): PLAN: Plan The patient is a 27 y/o M w/ PMHx: Spina bifida s/p PROGRAM REP shunt (nonfunctional) w/ paraplegic immobility syndrome w/ chronic indwelling catheter following w/ Urologist at [facility] w/ history of nephrolithiasis w/ stents in the past and chronic right nephrostomy tube with most recent change noted 09/17/2022 during recent prior admission complicated by sepsis and acute complicated urinary infection, Chronic normocytic anemia/iron deficiency anemia, Chronic Systolic CHF, Hx Pericardial Effusion, Secondary Pulmonary HTN, SOPHIA, Morbid Obesity, Chronic Hypotension on Midodrine with suspected underlying adrenal insufficiency, ESRD on HD who presents to the [facility] ED from [facility] on 10/28/22 with history of concern for sepsis per his family with recent diagnosis of C. difficile approximately 10 days prior placed on oral antibiotic although patient did not know the name but it was presumed to be Flagyl given documented vancomycin allergy with transient desaturation with oxygen dropping to 85 although patient denied dyspnea at that time placed on nasal cannula with also concern for his blood pressure dropping into the 90s. #1. Acute Sepsis (tachycardia, hypotension with systolic less than 90, tachypnea, leukocytosis, lactic acidosis), multifactorial including Acute pyelonephritis/Acute complicated UTI complicated by chronic nephrostomy tube (although in alternate kidney affected on imaging), recently diagnosed C. difficile colitis and potential #2: Will admit patient to the ICU to be cautious although patient does tend to run low, continue judicious hydration given underlying CHF history with lactic acid trending per facility protocol, maintain on cardiac monitoring, maintain on IV Levaquin given allergies pending Cx with de-escalation/alteration of antibiotic therapy once this results with concurrent continuation of presumed oral flagyl given recent C. difficile infection history, will stress dose with IV hydrocortisone and hold oral with continuation of chronic midodrine regimen at this time, may need to request IR involvement for nephrostomy tube change as on imaging it notes that the right kidney is low-lying and malrotated and that the right nephrostomy tube tip appears to be within the upper pole of the parenchyma superficially near the renal margin posteriorly and not in the collecting system with several calculi in the right kidney although it does not demonstrate any hydronephrosis or perinephric stranding compared to the left kidney, will request Infectious disease involvement, PT/OT/CM consultations for discharge planning, will consult historical guide per protocol, maintain on fall and aspiration precautions. #2. Incidental right inguinal hernia containing a short segment of bowel with mild stranding concerning for possible incarceration: Given these acute findings on imaging ED requested general surgery evaluation and Dr. Pham presented to the ED and noted patient with reproducible hernia and no clinical concern for incarcerated hernia. He also reviewed the CT read as well. Given note placed upon his evaluation while patient in the ED and no acute surgical needs at this time will defer ongoing consultation. #3. Possible Mild Acute Hypoxia secondary to Acute on Chronic systolic CHF with mild overload secondary to missed HD: 09/30/2018 echocardiogram with normal LV size, LV systolic function normal, EF 55%, moderate concentric LVH, no evidence of any pericardial effusion. Patient with concurrent history of hypertension on midodrine therapy which complicates patient underlying CHF history, will continue aspirin, not on statin therapy, not on beta-ángel nor RAMIRO inhibitor/ARB given progressive renal disease as well as hypotension. We will continue judicious hydration given his history of hypotension cautiously and plan for HD arrangement per Nephrology, will supplement oxygenation in the interim and likely confounded by hypoventilation syndrome with his habitus. If BP improves enough could certainly pulse dose lasix. #4. Incidental moderate right hip joint effusion as well as small left hip joint effusion: Noted on CT imaging, no obvious immediate concerns for septic arthritis but will continue to closely monitor and if necessary may always consider orthopedic surgery involvement and aspiration. #5. Chronic pressure ulcers/chronic osteomyelitis: CT abdomen and pelvis with decubitus ulcer posteriorly overlying the right hip/ischium with findings consistent with osteomyelitis, frequent position changes, barrier cream, continue Dakin's solution with packing, wound RN consultation. #6. ESRD: Admission BUN/creatinine 54/4.22, following with Dr. Tinsley, noted dialysis days Wednesday, Wednesday, Wednesday, Wednesday, will continue home HD regimen, nephrology consulted, pending. Missed HD Wednesday of note given illness. #7. Chronic hypotension with suspected underlying adrenal insufficiency complicated by #1 as noted: Patient blood pressures routinely 90-100 range, maintained on chronic midodrine as well hydrocortisone oral regimen, given presentation will place on stress dose steroids and continue chronic midodrine regimen. #8. Chronic normocytic anemia/iron deficiency anemia: Admission hemoglobin 9.5, baseline hemoglobin more recently noted to be 8-9 range, repeat CBC in AM, continue supplementation. #9. Spina bifida w/ paraplegic: s/p PROGRAM REP shunt (nonfunctional), patient w/ as noted chronic indwelling catheter coupled with concurrent chronic nephrostomy tube, following w/ Urologist at [facility] w/ history of nephrolithiasis w/ stents/nephrostomy tube placement 01/2022 with eventual transition to ESRD on HD secondary to worsening renal function, will maintain on frequent positional changes, offloading, PT and OT assessments as well as case management for discharge planning. #10. Chronic bilateral lower extremity edema: Patient from prior records frequently sleeping upright in a chair with poor food choices heavy and salts, will place neck ramiro wraps, elevate bilateral lower extremity. #11. Morbid Obesity: Weight loss and lifestyle changes encouraged. #12. SOPHIA: We will continue CPAP nightly. #13. Anxiety and depression: We will continue patient home sertraline regimen. #14. GERD: We will continue patient home PPI. #15. DVT prophylaxis: Heparin. #16. CODE STATUS: Full code per facility paperwork. Admission Evaluation Time spent evaluating chart, patient history, patient evaluation, care planning and discussion with specialists: 75 minutes. Charges/Coding Visit Charges Inpatient E&M: 38230 Init Hosp L3
--- NOTE | 2022-10-29 00:08 | PCM.PN.BLA ---
Progress Note I was asked by EM to evaluate patient for possible incarcerated/strangulated inguinal hernia based on intake CT imaging report. In my review of imaging and examination of patient, I find that the hernia designated as an 'inguinal hernia' on report actually is an umbilical hernia. This is not immediately apparent given the usual location of such a finding, but Mr. Hammond's altered habitus puts his umbilical hernia in an unusually inferior position. One may more readily appreciate this fact when closely evaluating the designated hernia's location as widely disparate from the pubis. With this clarification, I found Mr. Hammond's umbilical hernia to be relatively wide-mouthed and free reducible without overlying skin changes or other exam findings consistent with incarceration/strangulation.
[2022-10-29 00:14] LABS: Reflex Lactate? Y
[2022-10-29 00:46] LABS: Erythrocyte Sedimentation Rate 130 mm/hr (0-20)
[2022-10-29] MEDS: Clindamycin 600 MG/50 ML BAG 100 MG IV (01:06)
[2022-10-29 01:14] LABS: Lactic Acid 0.9 mmol/L (0.4-1.9)
[2022-10-29] MEDS: 0.9% Normal Saline 1,000 ML 100 ML IV (02:44)
[2022-10-29] MEDS: Hydrocortisone Sod Succinate 100 MG/2 ML Vial IV ×5 (02:45→22:59)
[2022-10-29 03:49] LABS: Absolute Lymphocyte Count 2.76 X10^3/uL (0.83-4.51); Absolute Neutrophil Count 19.3 X10^3/uL (2.0-7.7); Basophil# 0.13 X10^3/uL; Basophil% 0.5 % (0-1); Eosinophils% 1.6 % (0-5); Hematocrit 28.7 % (40-54); Hemoglobin 8.4 g/dL (13.0-16.5); Lymphocyte # 2.76 X10^3/ul (0.83-4.51); Lymphocyte % 11.2 % (19-41); Mean Corp Hgb Conc 29.3 g/dL (32-36); Mean Corpuscular Hgb 26.8 pg (27.0-32.0); Mean Corpuscular Volume 91.7 fL (80-94); Mean Platelet Vol. 9.9 fl (6.2-12.0); Monocyte# 1.68 X10^3/uL; Monocyte% 6.8 % (0-10); NRBC Flagged by Analyzer 0 % (0-5); Neutrophil # 19.27 X10^3/uL (2.7-7.7); Neutrophil % 78.7 % (47-70); POSITIVE DIFFERENTIAL YES; Platelet Count 460 K/mm3 (150-450); RBC Distribution Width SD 59.8 fl (35.1-43.9); Red Blood Count 3.13 M/mm3 (4.6-6.2); White Blood Count 24.5 K/mm3 (4.4-11.0)
[2022-10-29 04:12] LABS: ALB/GLOB Ratio 0.3 RATIO (0.9-2.4); AST(SGOT) 18 U/L (15-37); Alanine Aminotransfer ALT/SGPT < 6 U/L (16-61); Albumin, Serum 1.8 g/dL (3.2-5.0); Alkaline Phosphatase 146 U/L (45-117); Anion Gap 7 (5-15); BUN 56 mg/dL (7-18); BUN/Creat Ratio 13.2 RATIO (10-20); Calcium,Total 8.5 mg/dL (8.5-10.1); Chloride 103 mmol/L (98-107); Creatinine, Serum 4.24 mg/dL (0.70-1.30); EST Glomerular Filtration Rate 18 mL/min (>60); Est Glom Filt Rate - Afr Amer 21 mL/min (>60); Estimated Creatinine Clearance 19.85 ml/min; Globulin 5.4 g/dL (2.2-4.2); Glucose 107 mg/dL (74-106); Potassium 5.1 mmol/L (3.5-5.1); Protein, Total 7.2 g/dL (6.4-8.2); Sodium Level 137 mmol/L (136-145)
[2022-10-29 04:54] LABS: Differential Indicated SCAN CRITERIA MET
[2022-10-29 05:13] LABS: Anisocytosis 1+; Platelet Estimate SLT INC (ADEQ)
[2022-10-29] MEDS: metroNIDAZOLE 500 MG Tablet PO ×3 (05:24→22:59)
--- NOTE | 2022-10-29 07:13 | EX.PCM.CONCC ---
Assessment & Plan Assessment/Plan (1) Sepsis: PLAN: Plan RECOMMENDATIONS: 1. Continue continue empiric antimicrobials, pending finalized culture results. ID consultation is pending. 2. Discuss need for ongoing nephrostomy tube with urology. 3. Consultation to nephrology to assist with hemodialysis needs. 4. Continue midodrine and stress dose steroids. 5. Encourage incentive spirometer use. 6. Okay to discontinue continuous IV fluid resuscitation. 7. Continue nocturnal BiPAP therapy, given history of SOPHIA. IMPRESSIONS: 1. Sepsis The patient presented with sepsis due to probable complicated UTI with acute sepsis related organ dysfunction as evidenced by lactic acidemia and hypotension. The patient did ultimately respond from a hemodynamic perspective to IV fluid resuscitation and the initiation of midodrine and stress dose steroids. The patient was admitted to the hospital last month with a gram-negative complicated UTI and bacteremia. His nephrostomy tube was last exchanged during his prior hospitalization. He does have a history of questionable adrenal insufficiency and chronic hypotension, requiring scheduled midodrine. Plan to continue antimicrobials, pending finalized culture results. Infectious diseases consultation is pending. We will need to discuss management of nephrostomy tube with urology. Continuous IV fluids can be discontinued from my perspective. 2. End-stage renal disease on hemodialysis Nephrology consultation has been placed to assist with hemodialysis needs. 3. Relative adrenal insufficiency with persistent/chronic hypotension Continue baseline midodrine regimen. Continue to wean stress dose steroids as tolerated by hemodynamic status. 4. History of congestive heart failure/anemia/spina bifida with paraplegia/obesity/obstructive sleep apnea Complicates care, management, recovery and prognosis. Continue home supportive measures. Continue nocturnal BiPAP therapy. This note was generated with [employer] dictation software. It may contain incorrect words, spelling, and punctuation that were not noted in checking the note before signing. HPI Consult Data Date of Consult: 10/29/22 HPI Narrative Reason for Consultation: Sepsis HPI Narrative: The patient is a 27-year-old male, with a history as outlined below, who presented to the emergency department on October 28 with fevers, malaise and hypotension. The patient was last admitted to the hospital in August 2022 with sepsis secondary to gram-negative complicated UTI/bacteremia. He did require nephrostomy tube exchange during his last hospitalization. The patient was ultimately discharged on September 19. The patient has a complex medical history including baseline spina bifida with immobility, end-stage renal disease on hemodialysis, anemia, chronic congestive heart failure, obstructive sleep apnea, chronic hypotension, and adrenal insufficiency. The patient currently resides at a longterm facility and presented to the hospital with multiple decubitus wounds as well. The patient reported that his blood pressure at his baseline typically runs 90 to 110 mmHg systolic. On presentation to the emergency department, the patient was noted to be afebrile with a presenting blood pressure of 95/50 mmHg. Initial laboratory evaluation revealed an elevated white blood cell count to 21,000. Chemistry profile was notable for a sodium of 135 and creatinine of 3.4. Lactate was elevated at 2.1. Urine analysis was positive for leukocyte esterase and 3+ urine bacteria. CT abdomen/pelvis demonstrated colonic wall thickening with possible left-sided pyelonephritis and a decubitus ulcer overlying the right hip/ischium with findings of possible osteomyelitis. CTA chest demonstrated no definitive PE with compressive atelectasis in the lower lobes. The patient received supplemental IV fluid hydration and was started on broad-spectrum antimicrobials. The patient was continued on midodrine and was started on stress dose steroids as well. Consultations were placed to infectious diseases, nephrology and wound care. The patient was admitted to the medical intensive care unit for further management. 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, stage 3 Pressure ulcer Right-sided heart failure Secondary pulmonary arterial hypertension Spina bifida Systolic CHF Umbilical hernia Home Medications acetaminophen 325 mg tablet 650 mg PO Q4H PRN PAIN/FEVER 09/17/22 [History Last Taken Unknown] acetaminophen 650 mg rectal suppository 650 mg SD Q4H PRN PAIN/FEVER 09/17/22 [History Last Taken Unknown] albuterol sulfate 2.5 mg/3 mL (0.083 %) solution for nebulization 2.5 mg inhalation Q4H PRN Shortness Of Breath 09/17/22 [History Last Taken Unknown] aluminum-magnesium hydroxide 225 mg-200 mg/5 mL oral suspension 30 ml PO Q4H PRN PRN GI DISTRESS 09/17/22 [History Last Taken Unknown] bisacodyl 10 mg rectal suppository 10 mg SD DAILY PRN Constipation 09/17/22 [History Last Taken Unknown] dextrose 40 % oral gel (Glucose Gel) 15 g PO Q15M PRN Hypoglycemia 09/17/22 [History Last Taken Unknown] ferrous sulfate 325 mg (65 mg iron) tablet 325 mg PO DAILY 09/17/22 [History Last Taken Unknown] gabapentin 100 mg capsule 100 mg PO DAILY 09/17/22 [History Last Taken Unknown] guaifenesin 200 mg/5 mL oral liquid 400 mg PO Q4H PRN Cough 09/17/22 [History Last Taken Unknown] guaifenesin 600 mg tablet, extended release 12 hr (Mucinex) 600 mg PO BID 09/17/22 [History Last Taken Unknown] heparin, porcine (PF) 5,000 unit/mL injection syringe 5,000 unit subcut Q8H 09/17/22 [History Last Taken Unknown] hydrocortisone 10 mg tablet 10 mg PO Q12H 09/17/22 [History Last Taken Unknown] hydrocortisone 5 mg tablet 5 mg PO DAILY 09/17/22 [History Last Taken Unknown] loperamide 2 mg tablet 2 mg PO Q6H PRN Diarrhea 09/17/22 [History Last Taken Unknown] magnesium hydroxide 400 mg/5 mL oral suspension (Milk of Magnesia) 400 mg PO DAILY PRN Constipation 09/17/22 [History Last Taken Unknown] melatonin 3 mg tablet 3 mg PO QHS PRN insomnia 09/17/22 [History Last Taken Unknown] midodrine 10 mg tablet 20 mg PO TID 09/17/22 [History Last Taken Unknown] pantoprazole 40 mg tablet,delayed release 40 mg PO BID 09/17/22 [History Last Taken Unknown] sertraline 25 mg tablet 25 mg PO DAILY 09/17/22 [History Last Taken Unknown] sodium hypochlorite 0.25 % solution (Dakin's Solution) 1 applic topical DAILY 09/17/22 [History Last Taken Unknown] sodium phosphates 19 gram-7 gram/118 mL enema (Fleet Enema) 118 ml SD DAILY PRN Constipation 09/17/22 [History Last Taken Unknown] trazodone 100 mg tablet 100 mg PO QHS 09/17/22 [History Last Taken Unknown] vitamin B complex-vitamin C-folic acid 0.8 mg tablet (Renal-Adal) 1 tab PO DAILY 09/17/22 [History Last Taken Unknown] levofloxacin 750 mg tablet 750 mg PO Q48H #5 tabs 09/19/22 [Rx Last Taken Unknown] Lactobacillus rhamnosus GG 10 billion cell capsule (Culturelle) 1 cap PO BID 10/28/22 [History Last Taken Unknown] digestive enzymes (Enzyme Digest capsule) 1 cap PO TID 10/28/22 [History Last Taken Unknown] metronidazole 500 mg tablet 500 mg PO TID 10/28/22 [History Last Taken Unknown] sevelamer carbonate 800 mg tablet (Renvela) 800 mg PO TID 10/28/22 [History Last Taken Unknown] simethicone 80 mg chewable tablet (Gas Relief (simethicone)) 80 mg PO BID PRN gi upset 10/28/22 [History Last Taken Unknown] Allergy/AdvReac Type Severity Reaction Status Date / Time ampicillin Allergy rash Verified 10/28/22 19:20 cefepime Allergy Hives Verified 10/28/22 19:20 daptomycin Allergy Hives Verified 10/28/22 19:20 fentanyl Allergy Rash Verified 10/28/22 19:20 latex Allergy Hives Verified 10/28/22 19:20 meropenem Allergy rash Verified 10/28/22 19:20 morphine Allergy Hives Verified 10/28/22 19:20 sulbactam [From Unasyn] Allergy Hives Verified 10/28/22 19:20 vancomycin Allergy Hives Verified 10/28/22 19:20 Family History Grandfather Heart disease Father Hypertension Mother Hyperlipidemia Surgical History History of back surgery History of foot surgery History of kidney surgery History of ventriculoperitoneal shunting S/P cutaneous-vesicostomy S/P ureteral stent placement Status post laser lithotripsy of ureteral calculus Social History household members: family Smoking Status: Never smoker second hand exposure: Yes alcohol intake: never substance use type: does not use ROS ROS Narrative 10 systems reviewed with pertinent positives as noted in the HPI above. Physical Exam Const alert and no apparent distress General Appearance: cooperative Nutritional Appearance: obese HEENT normocephalic and head/scalp atraumatic Eyes PERRL, EOMs intact bilaterally and conjunctivae normal Neck supple General: trachea midline Chest inspection of chest normal Resp normal respiratory effort Auscultation: diminished lung sounds; Negative for rales, rhonchi or wheezes Cardio regular rate, regular rhythm, S1 normal heart sound and S2 normal heart sound GI normal to inspection, nondistended, normoactive bowel sounds Extremity General Extremity: edema; Negative for clubbing Skin General Skin Exam: venous stasis and dermatitis Neuro oriented x3 and no focal motor deficits Neuro Narrative: Baseline paraplegia Psych cooperative and affect normal Lab / Micro Data 10/29/22 03:40 10/29/22 03:40 Labs: Laboratory Results - last 24 hr 10/28/22 20:00: WBC 21.6 H, RBC 3.63 L, Hgb 9.5 L, Hct 32.8 L, MCV 90.4, MCH 26.2 L, MCHC 29.0 L, RDW Std Deviation 59.3 H, RDW Coeff of Francisco 18.1 H, Plt Count 503 H, MPV 10.0, Immature Gran % (Auto) 1.300 H, Neut % (Auto) 73.6 H, Lymph % (Auto) 14.2 L, [place] % (Auto) 8.2, Eos % (Auto) 1.9, Baso % (Auto) 0.8, Absolute Neuts (auto) 15.9 H, Absolute Lymphs (auto) 3.07, Nucleated RBC % 0, Differential Comment SCANNED, Diff Path Review August, ESR 130 H, PT 16.4 H, INR 1.3, APTT 40.3 H, Sodium 136, Potassium 5.0, Chloride 100, Carbon Dioxide 28.0, Anion Gap 8, BUN 54 H, Creatinine 4.22 H, Est GFR (MDRD) Af Amer 22 L, Est GFR (MDRD) Non-Af 18 L, BUN/Creatinine Ratio 12.8, Glucose 128 H, Lactic Acid 2.1 H*, Calcium 9.5, Total Bilirubin 0.50, AST 16, ALT 10 L, Alkaline Phosphatase 176 H, C-React Prot Ext Range 142.00 H, Total Protein 8.0, Albumin 2.1 L, Globulin 5.9 H, Albumin/Globulin Ratio 0.4 L 10/28/22 20:36: Urine Color Yellow, Urine Clarity Cloudy, Urine pH 7.0, Ur Specific [place] 1.010, Urine Protein 500 H, Urine Glucose (UA) Normal, Urine Ketones Negative, Urine Occult Blood 50 H, Urine Nitrite Negative, Urine Bilirubin Negative, Urine Urobilinogen Normal, Ur Leukocyte Esterase 500 H, Urine RBC 5-10 SEEN, Urine WBC >100 SEEN, Ur Squamous Epith Cells 0 SEEN, Urine Bacteria 3+, Urine Mucus 0 SEEN 10/29/22 00:45: Lactic Acid 0.9 10/29/22 03:40: WBC 24.5 H, RBC 3.13 L, Hgb 8.4 L, Hct 28.7 L, MCV 91.7, MCH 26.8 L, MCHC 29.3 L, RDW Std Deviation 59.8 H, RDW Coeff of Francisco 18.0 H, Plt Count 460 H, MPV 9.9, Immature Gran % (Auto) 1.200 H, Neut % (Auto) 78.7 H, Lymph % (Auto) 11.2 L, [place] % (Auto) 6.8, Eos % (Auto) 1.6, Baso % (Auto) 0.5, Absolute Neuts (auto) 19.3 H, Absolute Lymphs (auto) 2.76, Nucleated RBC % 0, Diff Path Review May , Platelet Estimate SLT INC, Anisocytosis 1+, Sodium 137, Potassium 5.1, Chloride 103, Carbon Dioxide 27.0, Anion Gap 7, BUN 56 H, Creatinine 4.24 H, Estim Creat Clear Calc 19.85, Est GFR (MDRD) Af Amer 21 L, Est GFR (MDRD) Non-Af 18 L, BUN/Creatinine Ratio 13.2, Glucose 107 H, Calcium 8.5, Total Bilirubin 0.50, AST 18, ALT < 6 L, Alkaline Phosphatase 146 H, Total Protein 7.2, Albumin 1.8 L, Globulin 5.4 H, Albumin/Globulin Ratio 0.3 L Micro: Microbiology 10/28/22 20:36 Stool C. difficile GDH Antigen & Toxins - Final 10/28/22 20:36 Stool C. difficile DNA Amplification - Final Radiology Impression Abdomen/Pelvis CT 10/28/22 21:45 IMPRESSION: 1. Right inguinal hernia containing short segment of bowel likely the cecum, which wall thickening and mild stranding which can be a sign of incarceration, cannot exclude strangulation. No bowel obstruction. 2. Suggestion of colonic wall thickening ascending to transverse colon is most likely due to nondistention, colitis less likely. 3. Right nephrostomy tube tip appears to be within the renal parenchyma at the upper pole. No hydronephrosis. Right nephrolithiasis. 4. Left renal pelviectasis with stranding about the renal pelvis is nonspecific, can be seen with inflammatory process pyelitis or pyelonephritis. No hydronephrosis on the left. 5. Marked hepatomegaly significantly increased compared to prior CT. 6. Presumed wound with decubitus ulcer posteriorly overlying the right hip/ischium with findings of possible osteomyelitis. Moderate right hip joint effusion. Cannot exclude septic hip. Smaller left hip joint effusion with likely smaller similar wound on the left. 7. CT chest reported separately. Electronically Signed: Lexi Kidd MD at 22:27 EDT , ADDENDUM: 10/28/22 2734 IMPRESSION: 1. Right inguinal hernia containing short segment of bowel likely the cecum, which wall thickening and mild stranding which can be a sign of incarceration, cannot exclude strangulation. No bowel obstruction. 2. Suggestion of colonic wall thickening ascending to transverse colon is most likely due to nondistention, colitis less likely. 3. Right nephrostomy tube tip appears to be within the renal parenchyma at the upper pole. No hydronephrosis. Right nephrolithiasis. 4. Left renal pelviectasis with stranding about the renal pelvis is nonspecific, can be seen with inflammatory process pyelitis or pyelonephritis. No hydronephrosis on the left. 5. Marked hepatomegaly significantly increased compared to prior CT. 6. Presumed wound with decubitus ulcer posteriorly overlying the right hip/ischium with findings of possible osteomyelitis. Moderate right hip joint effusion. Cannot exclude septic hip. Smaller left hip joint effusion with likely smaller similar wound on the left. 7. CT chest reported separately. N.B. : The above Results were Read Back by Lexi Kidd MD to Cuca Montiel MD, and understanding confirmed on 10/28/2022 22:33:21 (ET). Electronically Signed: Lexi Kidd MD at 22:27 EDT , Chest CTA 10/28/22 21:45 IMPRESSION: Suboptimal study. No definite evidence of pulmonary emboli. Hazy opacities in the lungs nonspecific and may be due to atelectasis, edema, or pneumonitis. Partial compressive atelectasis in the lower lobes. CT abdomen and pelvis reported separately. Electronically Signed: Lexi Kidd MD at 22:13 EDT , Charges/Coding Visit Charges Inpatient E&M: 85905 Init Hosp L3
[2022-10-29] MEDS: DAKIN'S SOL HALF STRENGTH (=0.25%) 1 APPLIC TOPICAL (08:46)
[2022-10-29] MEDS: SEVELAMER CARBONATE 800 MG TABLET PO ×3 (09:06→17:14)
[2022-10-29] MEDS: Folic Acid/Vitamin B Comp W-C 1 Capsule 1 CAP PO (09:06)
[2022-10-29] MEDS: Midodrine HCl 5 MG Tablet 20 MG PO ×2 (09:06→12:24)
[2022-10-29] MEDS: Ferrous Sulfate 325 MG Tablet PO (09:06)
[2022-10-29] MEDS: Pantoprazole Sodium 40 MG Tablet PO ×2 (09:07→22:59)
[2022-10-29] MEDS: Sertraline 50 MG Tablet 25 MG PO (09:07)
--- NOTE | 2022-10-29 09:18 | CASEMGMT ---
Patient is from [facility]. SW met with patient. Introduced self and role at [facility]. SW asked patient if his plan is to return to [facility] at d/c. Patient said the plan before he came to [facility] this visit was d/c from [facility] on Wednesday10-31-22. Patient said he would like t go home if possible. AUDREY asked [facility] d/c schedule planning manager to please find out what services including dialysis and home health have been arranged. Danilele Daly CONTACT LENS ASSISTANT MIRIAM
[2022-10-29] MEDS: Gabapentin 100 MG Capsule PO (09:23)
[2022-10-29] MEDS: Heparin Injection (Vial) 5,000 UNIT/ML VIAL 5000 UNIT SC ×2 (09:23→23:00)
--- NOTE | 2022-10-29 09:49 | CASEMGMT ---
Discharge Planning Patient was at [facility] for a skilled stay and planned to discharge this weekend. Per [facility], the following has been completed or needs completed; HH referral made to [facility]. Per my follow up with HH, they have asked for new referral to be made closer to discharge. Dialysis is set up with [facility] for /Wed, patient needing to arrive at 11:40. DME's ordered through [employer]; bipap ordered and approved, low air loss mattress ordered and waiting for approval. Needs a referral to the wound center. [facility] was going to send script for pull-ups and initiate wound care teaching with family. Follow up is scheduled with Dr. Romero for 11/04/22 @ 11:20a. Kiera Miranda, Discharge Planning Asst.
--- NOTE | 2022-10-29 09:57 | WOUNDNOTE ---
wound photo: left ischium
--- NOTE | 2022-10-29 09:58 | WOUNDNOTE ---
wound photo: right ischium
--- NOTE | 2022-10-29 09:59 | WOUNDNOTE ---
wound photo: right lower abdomen
--- NOTE | 2022-10-29 09:59 | WOUNDNOTE ---
wound photo: right lower leg
--- NOTE | 2022-10-29 10:00 | WOUNDNOTE ---
wound photo: left lower leg
--- NOTE | 2022-10-29 12:44 | CASEMGMT ---
AUDREY called patient's mom Maida. AUDREY introduced self and role at [facility]. AUDREY spoke with Maida about about d/c planning. Maida confirmed the plan was to come home from [facility] on Wednesday. AUDREY asked if there is anything that would prevent patient from being able to come home. Maida did not think so. Maida said the SW at [facility] had set things up. The SW at [facility] did order a mattress and a bed for patient, but it is not in yet. Maida said they have patient's old bed, but it is really narrow. AUDREY told her we could check on this. Per d/c planner scheduler Kiera a low air loss mattress was ordered from [facility], but has not yet been approved. AUDREY and NATHALIA CM will follow for d/c planning. Danielle PINEDA
[2022-10-29 13:11] LABS: Pathologist Review Reviewed
[2022-10-29 13:11] LABS: Pathologist Review Reviewed
--- NOTE | 2022-10-29 13:12 | PN.HOSP_ITS ---
Hospitalist Note Seen and examined today in the ICU, I talked briefly with critical care about his care, I also talked with urology concerning his nephrostomy tube, urology does not feel it needs to be changed at this time. Patient's C. difficile toxin was negative, antigen was positive. Patient had gram-positive cocci in the blood today, ID will see the patient and evaluate antibiotic coverage. I also talked briefly with the wound nurse, patient's pressure wounds do not appear to have purulent drainage present. Patient's white blood cell count today was 24.5. Patient's urine culture resulted in showing over 100,000 colonies of gram- negative dl. Await antibiotic recommendations from infectious diseases at this time.
[2022-10-29] MEDS: 0.9% Saline Lock 10 ML Syringe IV ×2 (15:05→17:14)
[2022-10-29] MEDS: Linezolid 600 MG Tablet PO ×2 (15:15→22:59)
--- NOTE | 2022-10-29 15:20 | CON.PCM.ID_ITS ---
Assessment & Plan Assessment/Plan (1) Bacteremia: PLAN: PCR showing mSSA. Will check repeat bcx and echo. Suspected source is deep R ischial wound with possible osteo seen on CT. Recommend plastic surgery eval and wound culture. Ucx with GNR. On flagyl for cdiff at [facility], will continue, diarrhea controlled. Will change abx to linezolid/cefepime/flagyl. Has tolerated cefepime in recent past. Will follow, thank you, d/w primary team. (2) Sepsis: (3) Decubitus ulcer: (4) UTI (urinary tract infection): HPI Consult Data Date of Consult: 10/29/22 HPI Narrative Reason for Consultation: bacteremia HPI Narrative: OKSANA DAMIAN, is a 27 M with spina bifida, paraplegia, recurrent uti, chronic R neph tube, ESRD, presented 10/28 to ED from [facility] with fatigue, hypoxia, low BP. Was started on po flagyl 10/16/22 for cdiff, diarrhea resolved. Admitted to icu on levaquin/flagyl. Feeling better this afternoon. No abd pain, no blood in stool. Full ROS performed and neg except as noted above. 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, stage 3 Pressure ulcer Right-sided heart failure Secondary pulmonary arterial hypertension Spina bifida Systolic CHF Umbilical hernia Home Medications acetaminophen 325 mg tablet 650 mg PO Q4H PRN PAIN/FEVER 09/17/22 [History Last Taken Unknown] acetaminophen 650 mg rectal suppository 650 mg MA Q4H PRN PAIN/FEVER 09/17/22 [History Last Taken Unknown] albuterol sulfate 2.5 mg/3 mL (0.083 %) solution for nebulization 2.5 mg inhalation Q4H PRN Shortness Of Breath 09/17/22 [History Last Taken Unknown] aluminum-magnesium hydroxide 225 mg-200 mg/5 mL oral suspension 30 ml PO Q4H PRN PRN GI DISTRESS 09/17/22 [History Last Taken Unknown] bisacodyl 10 mg rectal suppository 10 mg MA DAILY PRN Constipation 09/17/22 [History Last Taken Unknown] dextrose 40 % oral gel (Glucose Gel) 15 g PO Q15M PRN Hypoglycemia 09/17/22 [History Last Taken Unknown] ferrous sulfate 325 mg (65 mg iron) tablet 325 mg PO DAILY 09/17/22 [History Last Taken Unknown] gabapentin 100 mg capsule 100 mg PO DAILY 09/17/22 [History Last Taken Unknown] guaifenesin 200 mg/5 mL oral liquid 400 mg PO Q4H PRN Cough 09/17/22 [History Last Taken Unknown] guaifenesin 600 mg tablet, extended release 12 hr (Mucinex) 600 mg PO BID 09/17/22 [History Last Taken Unknown] heparin, porcine (PF) 5,000 unit/mL injection syringe 5,000 unit subcut Q8H 09/17/22 [History Last Taken Unknown] hydrocortisone 10 mg tablet 10 mg PO Q12H 09/17/22 [History Last Taken Unknown] hydrocortisone 5 mg tablet 5 mg PO DAILY 09/17/22 [History Last Taken Unknown] loperamide 2 mg tablet 2 mg PO Q6H PRN Diarrhea 09/17/22 [History Last Taken Unknown] magnesium hydroxide 400 mg/5 mL oral suspension (Milk of Magnesia) 400 mg PO DAILY PRN Constipation 09/17/22 [History Last Taken Unknown] melatonin 3 mg tablet 3 mg PO QHS PRN insomnia 09/17/22 [History Last Taken Unknown] midodrine 10 mg tablet 20 mg PO TID 09/17/22 [History Last Taken Unknown] pantoprazole 40 mg tablet,delayed release 40 mg PO BID 09/17/22 [History Last Taken Unknown] sertraline 25 mg tablet 25 mg PO DAILY 09/17/22 [History Last Taken Unknown] sodium hypochlorite 0.25 % solution (Dakin's Solution) 1 applic topical DAILY 09/17/22 [History Last Taken Unknown] sodium phosphates 19 gram-7 gram/118 mL enema (Fleet Enema) 118 ml MA DAILY PRN Constipation 09/17/22 [History Last Taken Unknown] trazodone 100 mg tablet 100 mg PO QHS 09/17/22 [History Last Taken Unknown] vitamin B complex-vitamin C-folic acid 0.8 mg tablet (Renal-Adal) 1 tab PO DAILY 09/17/22 [History Last Taken Unknown] levofloxacin 750 mg tablet 750 mg PO Q48H #5 tabs 09/19/22 [Rx Last Taken Unknown] Lactobacillus rhamnosus GG 10 billion cell capsule (Culturelle) 1 cap PO BID 10/28/22 [History Last Taken Unknown] digestive enzymes (Enzyme Digest capsule) 1 cap PO TID 10/28/22 [History Last Taken Unknown] metronidazole 500 mg tablet 500 mg PO TID 10/28/22 [History Last Taken Unknown] sevelamer carbonate 800 mg tablet (Renvela) 800 mg PO TID 10/28/22 [History Last Taken Unknown] simethicone 80 mg chewable tablet (Gas Relief (simethicone)) 80 mg PO BID PRN gi upset 10/28/22 [History Last Taken Unknown] Allergy/AdvReac Type Severity Reaction Status Date / Time ampicillin Allergy rash Verified 10/28/22 19:20 cefepime Allergy Hives Verified 10/28/22 19:20 daptomycin Allergy Hives Verified 10/28/22 19:20 fentanyl Allergy Rash Verified 10/28/22 19:20 latex Allergy Hives Verified 10/28/22 19:20 meropenem Allergy rash Verified 10/28/22 19:20 morphine Allergy Hives Verified 10/28/22 19:20 sulbactam [From Unasyn] Allergy Hives Verified 10/28/22 19:20 vancomycin Allergy Hives Verified 10/28/22 19:20 Family History Grandfather Heart disease Father Hypertension Mother Hyperlipidemia Surgical History History of back surgery History of foot surgery History of kidney surgery History of ventriculoperitoneal shunting S/P cutaneous-vesicostomy S/P ureteral stent placement Status post laser lithotripsy of ureteral calculus Social History household members: family Smoking Status: Never smoker second hand exposure: Yes alcohol intake: never substance use type: does not use Physical Exam Const alert, oriented x3 and no apparent distress General Appearance: cooperative HEENT normocephalic and head/scalp atraumatic Eyes PERRL and EOMs intact bilaterally Neck supple and No nodes Resp normal air movement and clear to auscultation bilaterally Cardio regular rate and regular rhythm GI soft to palpation, non-tender and non-distended Extremity General Extremity: edema Skin Skin Narrative: reviewed photos Neuro CN's II-XII intact bilaterally Lab / Micro Data Attestation: I reviewed the patient's lab results. 10/29/22 03:40 10/29/22 03:40 Labs: Laboratory Results - last 24 hr 10/28/22 20:00: WBC 21.6 H, RBC 3.63 L, Hgb 9.5 L, Hct 32.8 L, MCV 90.4, MCH 26.2 L, MCHC 29.0 L, RDW Std Deviation 59.3 H, RDW Coeff of [place] 18.1 H, Plt Count 503 H, MPV 10.0, Immature Gran % (Auto) 1.300 H, Neut % (Auto) 73.6 H, Lymph % (Auto) 14.2 L, [place] % (Auto) 8.2, Eos % (Auto) 1.9, Baso % (Auto) 0.8, Absolute Neuts (auto) 15.9 H, Absolute Lymphs (auto) 3.07, Nucleated RBC % 0, Differential Comment SCANNED, Diff Path Review Reviewed, ESR 130 H, PT 16.4 H, INR 1.3, APTT 40.3 H, Sodium 136, Potassium 5.0, Chloride 100, Carbon Dioxide 28.0, Anion Gap 8, BUN 54 H, Creatinine 4.22 H, Est GFR (MDRD) Af Amer 22 L, Est GFR (MDRD) Non-Af 18 L, BUN/Creatinine Ratio 12.8, Glucose 128 H, Lactic Acid 2.1 H*, Calcium 9.5, Total Bilirubin 0.50, AST 16, ALT 10 L, Alkaline Phosphatase 176 H, C-React Prot Ext Range 142.00 H, Total Protein 8.0, Albumin 2.1 L, Globulin 5.9 H, Albumin/Globulin Ratio 0.4 L 10/28/22 20:36: Urine Color Yellow, Urine Clarity Cloudy, Urine pH 7.0, Ur Specific [place] 1.010, Urine Protein 500 H, Urine Glucose (UA) Normal, Urine Ketones Negative, Urine Occult Blood 50 H, Urine Nitrite Negative, Urine Bilirubin Negative, Urine Urobilinogen Normal, Ur Leukocyte Esterase 500 H, Urine RBC 5-10 SEEN, Urine WBC >100 SEEN, Ur Squamous Epith Cells 0 SEEN, Urine Bacteria 3+, Urine Mucus 0 SEEN 10/29/22 00:45: Lactic Acid 0.9 10/29/22 03:40: WBC 24.5 H, RBC 3.13 L, Hgb 8.4 L, Hct 28.7 L, MCV 91.7, MCH 26.8 L, MCHC 29.3 L, RDW Std Deviation 59.8 H, RDW Coeff of [place] 18.0 H, Plt Count 460 H, MPV 9.9, Immature Gran % (Auto) 1.200 H, Neut % (Auto) 78.7 H, Lymph % (Auto) 11.2 L, [place] % (Auto) 6.8, Eos % (Auto) 1.6, Baso % (Auto) 0.5, Absolute Neuts (auto) 19.3 H, Absolute Lymphs (auto) 2.76, Nucleated RBC % 0, Diff Path Review Reviewed, Platelet Estimate SLT INC, Anisocytosis 1+, Sodium 137, Potassium 5.1, Chloride 103, Carbon Dioxide 27.0, Anion Gap 7, BUN 56 H, Creatinine 4.24 H, Estim Creat Clear Calc 19.85, Est GFR (MDRD) Af Amer 21 L, Est GFR (MDRD) Non-Af 18 L, BUN/Creatinine Ratio 13.2, Glucose 107 H, Calcium 8.5, Total Bilirubin 0.50, AST 18, ALT < 6 L, Alkaline Phosphatase 146 H, Total Protein 7.2, Albumin 1.8 L, Globulin 5.4 H, Albumin/Globulin Ratio 0.3 L Micro: Microbiology 10/28/22 21:17 Blood Culture (Wb) - Anticubital Right Bacteria Detection (PCR) - Final Staphylococcus aureus 10/28/22 21:17 Blood Culture (Wb) - Anticubital Right Blood Culture - Preliminary 10/28/22 20:36 Stool C. difficile GDH Antigen & Toxins - Final 10/28/22 20:36 Stool C. difficile DNA Amplification - Final 10/28/22 20:36 Urine Catheter - Catheter Urine Culture - Preliminary Gram negative dl 10/28/22 20:00 Blood Culture (Wb) - Anticubital Right Blood Culture - Preliminary Radiology Impression Abdomen/Pelvis CT 10/28/22 21:45 IMPRESSION: 1. Right inguinal hernia containing short segment of bowel likely the cecum, which wall thickening and mild stranding which can be a sign of incarceration, cannot exclude strangulation. No bowel obstruction. 2. Suggestion of colonic wall thickening ascending to transverse colon is most likely due to nondistention, colitis less likely. 3. Right nephrostomy tube tip appears to be within the renal parenchyma at the upper pole. No hydronephrosis. Right nephrolithiasis. 4. Left renal pelviectasis with stranding about the renal pelvis is nonspecific, can be seen with inflammatory process pyelitis or pyelonephritis. No hydronephrosis on the left. 5. Marked hepatomegaly significantly increased compared to prior CT. 6. Presumed wound with decubitus ulcer posteriorly overlying the right hip/ischium with findings of possible osteomyelitis. Moderate right hip joint effusion. Cannot exclude septic hip. Smaller left hip joint effusion with likely smaller similar wound on the left. 7. CT chest reported separately. Electronically Signed: Lexi Kidd MD at 22:27 EDT , ADDENDUM: 10/28/22 [id number] IMPRESSION: 1. Right inguinal hernia containing short segment of bowel likely the cecum, which wall thickening and mild stranding which can be a sign of incarceration, cannot exclude strangulation. No bowel obstruction. 2. Suggestion of colonic wall thickening ascending to transverse colon is most likely due to nondistention, colitis less likely. 3. Right nephrostomy tube tip appears to be within the renal parenchyma at the upper pole. No hydronephrosis. Right nephrolithiasis. 4. Left renal pelviectasis with stranding about the renal pelvis is nonspecific, can be seen with inflammatory process pyelitis or pyelonephritis. No hydronephrosis on the left. 5. Marked hepatomegaly significantly increased compared to prior CT. 6. Presumed wound with decubitus ulcer posteriorly overlying the right hip/ischium with findings of possible osteomyelitis. Moderate right hip joint effusion. Cannot exclude septic hip. Smaller left hip joint effusion with likely smaller similar wound on the left. 7. CT chest reported separately. N.B. : The above Results were Read Back by Lexi Kidd MD to Cuca Montiel MD, and understanding confirmed on 10/28/2022 22:33:21 (ET). Electronically Signed: Lexi Kidd MD at 22:27 EDT , Chest CTA 10/28/22 21:45 IMPRESSION: Suboptimal study. No definite evidence of pulmonary emboli. Hazy opacities in the lungs nonspecific and may be due to atelectasis, edema, or pneumonitis. Partial compressive atelectasis in the lower lobes. CT abdomen and pelvis reported separately. Electronically Signed: Lexi Kidd MD at 22:13 EDT ,
--- NOTE | 2022-10-29 15:24 | ECHOCS_ITS ---
Reason For Study: Murmur Procedure This was a 2D Doppler, Color Flow transthoracic echocardiogram. The study was technically difficult. Contrast injection was performed. Exam performed portable in patient room. Left Ventricle Normal LV size. Left ventricular systolic function is normal. The estimated ejection fraction is 60 %. No regional wall motion abnormalities noted. Right Ventricle Normal RV size. Normal systolic function. Atria The left atrium is mildly enlarged. Normal right atrium. Mitral Valve Mitral valve not well visualized. Tricuspid Valve The tricuspid valve is not well visualized. Mild (1+) eccentric tricuspid valve insufficiency. Pulmonary artery systolic pressure is 30 mmHg. Aortic Valve The aortic valve is not well visualized. Pulmonic Valve The pulmonic valve is not well visualized. Great Vessels Normal aortic root. The pulmonary is not well visualized. Normal inferior vena cava. Pericardium/Pleural No pericardial effusion. Medication Diluted definity 2ml given slow IV push to enhance endocardial definition. MMode/2D Measurements & Calculations LVIDd: 5.3 cm IVSd: 0.93 cm Ao root diam: 3.2 cm LVIDs: 2.6 cm LVPWd: 0.69 cm LA dimension: 3.8 cm FS: 51.3 % LAV(MOD-bp): 76.6 ml LVAd ap4: 33.5 cm2 SV(MOD-sp4): 75.0 ml LAV(MOD-bp) Indexed: 38.1 ml/m2 LVLd ap4: 8.0 cm LAV(MOD-sp2): 68.8 ml EDV(MOD-sp4): 115.0 ml LAV(MOD-sp4): 84.5 ml EDV(sp4-el): 119.0 ml LVAs ap4: 17.3 cm2 LVLs ap4: 6.3 cm ESV(MOD-sp4): 39.9 ml ESV(sp4-el): 40.6 ml EF(MOD-sp4): 65.3 % EF(sp4-el): 65.9 % SV(sp4-el): 78.4 ml LA A4 area: 25.3 cm2 Time Measurements MV dec time: 0.20 sec Doppler Measurements & Calculations MV E max sam: 127.0 cm/sec Lat Peak E' Sam: 12.8 cm/sec Med Peak E' Sam: 9.9 cm/sec MV A max sam: 86.0 cm/sec E/E' lat: 9.9 E/E' med: 12.9 MV E/A: 1.5 MV V2 max: 130.1 cm/sec MV P1/2t max sam: 130.1 cm/sec Ao V2 max: 125.4 cm/sec MV max P.8 mmHg MV P1/2t: 58.1 msec Ao max P.3 mmHg MV V2 mean: 69.9 cm/sec Ao V2 mean: 82.6 cm/sec MV mean P.4 mmHg MV dec slope: 655.3 cm/sec2 Ao mean P.2 mmHg MV V2 VTI: 25.6 cm MVA(P1/2t): 3.8 cm2 Ao V2 VTI: 29.4 cm AV (velocity ratio): 0.96 LV V1 max: 109.3 cm/sec PA V2 max: 127.0 cm/sec TR max sam: 261.2 cm/sec LV V1 max P.8 mmHg PA V2 mean: 86.0 cm/sec TR max P.3 mmHg LV V1 mean P.0 mmHg LV V1 mean: 82.7 cm/sec LV V1 VTI: 28.3 cm ECHO/Echo Complete W/ Contrast Interpretation Summary Normal LV size. Left ventricular systolic function is normal. The estimated ejection fraction is 60 %. Pulmonary artery systolic pressure is 30 mmHg. Contrast injection was performed. Ordering Physician: Luis Amador Performed By: Ahsan Loredo RCS
[2022-10-29] MEDS: Menthol/Lanolin/Calamine/Znox 113 GM Tube 1 APPLIC TOPICAL (22:59)
[2022-10-30] VITALS (7 sets, daily range): BP systolic 113–159; BP diastolic 79–98; PULSE 59–89; RESP 12–29; TEMP 36.3–36.8; O2SAT 90–98; BMI 42.0
[2022-10-30] MEDS: metroNIDAZOLE 500 MG Tablet PO ×3 (05:18→22:53)
[2022-10-30] MEDS: Hydrocortisone Sod Succinate 100 MG/2 ML Vial IV ×4 (05:20→22:53)
--- NOTE | 2022-10-30 08:44 | PCM.CONS.R ---
Assessment & Plan Assessment/Plan (1) Bacteremia: (2) ESRD (end stage renal disease): (3) Decubitus ulcer: (4) UTI (urinary tract infection): (5) Hypotension: PLAN: Plan This is a pleasant 27-year-old male with past medical history significant for ESRD on hemodialysis who was brought to the emergency room for evaluation of fever and fatigue. Admitted for bacteremia. Nephrology consulted for hemodialysis needs. Patient currently dialyzes at [facility] on a Wednesday, Wednesday, , Wednesday schedule; however patient was to be discharged from long term to home this weekend. His outpatient hemodialysis schedule is arranged at [facility] on a Wednesday, , Wednesday schedule. We will plan for hemodialysis today over 3.5 hours and attempt fluid removal as patient/blood pressure tolerates. Patient currently has tunneled hemodialysis catheter that is being used for dialysis however he does have a maturing left forearm AV fistula. Per patient report this was created in June however he has not been able to follow-up with vascular due to conflict in schedule and hospitalizations. For now we will use tunneled hemodialysis catheter for dialysis today. ID consulted. Blood cultures showing MSSA. Suspected source is deep right hip/ischial wound and possible osteo was seen on CT from 10/28. Repeat blood cultures pending. Echo pending. Patient is on IV antibiotics. Patient has history of chronic hypotension and is on midodrine 20 mg 3 times daily. Blood pressures acceptable. Patient has a history of anemia of chronic disease. We will monitor hemoglobin trends. Further orders forthcoming as hospitalization evolves, thank you for allowing us to participate in the care of Mr. Damian. HPI Consult Data Date of Consult: 10/30/22 HPI Narrative HPI Narrative: OKSANA DAMIAN, is a 27 M with past medical history significant for ESRD on hemodialysis at [facility] on a Wednesday, Wednesday, , Wednesday schedule, history of spina bifida status post RN FLIGHT shunt (nonfunctional) with paraplegic immobility syndrome, chronic indwelling Bon[place] catheter, history of bilateral hydronephrosis and history of nephrolithiasis with stents in past with chronic right nephrostomy tube, chronic diastolic heart failure, SOPHIA who was brought to the emergency room from the long term for evaluation of fever, fatigue, hypotension. Patient was initially admitted to ICU for acute sepsis. Since admission patient has improved and has been moved out of ICU. Nephrology consulted for dialysis needs. Patient reports feeling better overall. Denies any nausea or vomiting. Per patient report this week and he was supposed to be discharged from long term to home. 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, stage 3 Pressure ulcer Right-sided heart failure Secondary pulmonary arterial hypertension Spina bifida Systolic CHF Umbilical hernia Home Medications acetaminophen 325 mg tablet 650 mg PO Q4H PRN PAIN/FEVER 09/17/22 [History Last Taken Unknown] acetaminophen 650 mg rectal suppository 650 mg [place] Q4H PRN PAIN/FEVER 09/17/22 [History Last Taken Unknown] albuterol sulfate 2.5 mg/3 mL (0.083 %) solution for nebulization 2.5 mg inhalation Q4H PRN Shortness Of Breath 09/17/22 [History Last Taken Unknown] aluminum-magnesium hydroxide 225 mg-200 mg/5 mL oral suspension 30 ml PO Q4H PRN PRN GI DISTRESS 09/17/22 [History Last Taken Unknown] bisacodyl 10 mg rectal suppository 10 mg [place] DAILY PRN Constipation 09/17/22 [History Last Taken Unknown] dextrose 40 % oral gel (Glucose Gel) 15 g PO Q15M PRN Hypoglycemia 09/17/22 [History Last Taken Unknown] ferrous sulfate 325 mg (65 mg iron) tablet 325 mg PO DAILY 09/17/22 [History Last Taken Unknown] gabapentin 100 mg capsule 100 mg PO DAILY 09/17/22 [History Last Taken Unknown] guaifenesin 200 mg/5 mL oral liquid 400 mg PO Q4H PRN Cough 09/17/22 [History Last Taken Unknown] guaifenesin 600 mg tablet, extended release 12 hr (Mucinex) 600 mg PO BID 09/17/22 [History Last Taken Unknown] heparin, porcine (PF) 5,000 unit/mL injection syringe 5,000 unit subcut Q8H 09/17/22 [History Last Taken Unknown] hydrocortisone 10 mg tablet 10 mg PO Q12H 09/17/22 [History Last Taken Unknown] hydrocortisone 5 mg tablet 5 mg PO DAILY 09/17/22 [History Last Taken Unknown] loperamide 2 mg tablet 2 mg PO Q6H PRN Diarrhea 09/17/22 [History Last Taken Unknown] magnesium hydroxide 400 mg/5 mL oral suspension (Milk of Magnesia) 400 mg PO DAILY PRN Constipation 09/17/22 [History Last Taken Unknown] melatonin 3 mg tablet 3 mg PO QHS PRN insomnia 09/17/22 [History Last Taken Unknown] midodrine 10 mg tablet 20 mg PO TID 09/17/22 [History Last Taken Unknown] pantoprazole 40 mg tablet,delayed release 40 mg PO BID 09/17/22 [History Last Taken Unknown] sertraline 25 mg tablet 25 mg PO DAILY 09/17/22 [History Last Taken Unknown] sodium hypochlorite 0.25 % solution (Dakin's Solution) 1 applic topical DAILY 09/17/22 [History Last Taken Unknown] sodium phosphates 19 gram-7 gram/118 mL enema (Fleet Enema) 118 ml [place] DAILY PRN Constipation 09/17/22 [History Last Taken Unknown] trazodone 100 mg tablet 100 mg PO QHS 09/17/22 [History Last Taken Unknown] vitamin B complex-vitamin C-folic acid 0.8 mg tablet (Renal-Adal) 1 tab PO DAILY 09/17/22 [History Last Taken Unknown] levofloxacin 750 mg tablet 750 mg PO Q48H #5 tabs 09/19/22 [Rx Last Taken Unknown] Lactobacillus rhamnosus GG 10 billion cell capsule (Culturelle) 1 cap PO BID 10/28/22 [History Last Taken Unknown] digestive enzymes (Enzyme Digest capsule) 1 cap PO TID 10/28/22 [History Last Taken Unknown] metronidazole 500 mg tablet 500 mg PO TID 10/28/22 [History Last Taken Unknown] sevelamer carbonate 800 mg tablet (Renvela) 800 mg PO TID 10/28/22 [History Last Taken Unknown] simethicone 80 mg chewable tablet (Gas Relief (simethicone)) 80 mg PO BID PRN gi upset 10/28/22 [History Last Taken Unknown] Allergy/AdvReac Type Severity Reaction Status Date / Time ampicillin Allergy rash Verified 10/28/22 19:20 cefepime Allergy Hives Verified 10/28/22 19:20 daptomycin Allergy Hives Verified 10/28/22 19:20 fentanyl Allergy Rash Verified 10/28/22 19:20 latex Allergy Hives Verified 10/28/22 19:20 meropenem Allergy rash Verified 10/28/22 19:20 morphine Allergy Hives Verified 10/28/22 19:20 sulbactam [From Unasyn] Allergy Hives Verified 10/28/22 19:20 vancomycin Allergy Hives Verified 10/28/22 19:20 Family History Grandfather Heart disease Father Hypertension Mother Hyperlipidemia Surgical History History of back surgery History of foot surgery History of kidney surgery History of ventriculoperitoneal shunting S/P cutaneous-vesicostomy S/P ureteral stent placement Status post laser lithotripsy of ureteral calculus Social History household members: family Smoking Status: Never smoker second hand exposure: Yes alcohol intake: never substance use type: does not use ROS ROS Narrative As in HPI and past medical history Physical Exam Narrative Alert oriented x3, no apparent distress S1, S2, RRR Lung sounds clear anteriorly and posteriorly. No wheezes, rhonchi rales noted No edema Right chest tunneled HD catheter dressing clean, dry and intact Left forearm AV fistula positive thrill and bruit noted Lab / Micro Data 10/29/22 03:40 10/29/22 03:40 Labs: Laboratory Results - last 24 hr 10/28/22 20:00: Diff Path Review Reviewed 10/29/22 03:40: Diff Path Review Reviewed Micro: Microbiology 10/28/22 20:00 Blood Culture (Wb) - Anticubital Right Blood Culture - Preliminary 10/28/22 21:17 Blood Culture (Wb) - Anticubital Right Bacteria Detection (PCR) - Final Staphylococcus aureus 10/28/22 21:17 Blood Culture (Wb) - Anticubital Right Blood Culture - Preliminary Staphylococcus aureus 10/28/22 20:36 Urine Catheter - Catheter Urine Culture - Preliminary Acinetobacter baumannii 10/28/22 20:36 Stool C. difficile GDH Antigen & Toxins - Final 10/28/22 20:36 Stool C. difficile DNA Amplification - Final
[2022-10-30] MEDS: Pantoprazole Sodium 40 MG Tablet PO ×2 (09:19→22:53)
[2022-10-30] MEDS: Midodrine HCl 5 MG Tablet 20 MG PO ×2 (09:19→11:36)
[2022-10-30] MEDS: Heparin Injection (Vial) 5,000 UNIT/ML VIAL 5000 UNIT SC ×2 (09:20→22:43)
[2022-10-30] MEDS: Sertraline 50 MG Tablet 25 MG PO (09:20)
[2022-10-30] MEDS: Folic Acid/Vitamin B Comp W-C 1 Capsule 1 CAP PO (09:20)
[2022-10-30] MEDS: Ferrous Sulfate 325 MG Tablet PO (09:21)
[2022-10-30] MEDS: Gabapentin 100 MG Capsule PO (09:21)
[2022-10-30] MEDS: Linezolid 600 MG Tablet PO ×2 (09:21→22:53)
[2022-10-30] MEDS: Menthol/Lanolin/Calamine/Znox 113 GM Tube 1 APPLIC TOPICAL ×2 (09:22→22:52)
[2022-10-30] MEDS: DAKIN'S SOL HALF STRENGTH (=0.25%) 1 APPLIC TOPICAL (09:23)
--- NOTE | 2022-10-30 11:06 | PCM.PN.INT ---
Assessment & Plan Assessment/Plan (1) Sepsis: PLAN: Plan RECOMMENDATIONS: 1. Continue antimicrobials per ID recommendations. 2. Ongoing hemodialysis per nephrology recommendations. 3. Continue midodrine. Okay to begin to wean stress dose steroids as tolerated. 4. Encourage incentive spirometer use. 5. Continue nocturnal BiPAP therapy, given history of SOPHIA. 6. We will sign off from a critical care perspective. Please call with any additional questions. IMPRESSIONS: 1. Sepsis The patient presented with sepsis due to probable complicated UTI +/- Hip/ischium osteomyelitis with acute sepsis related organ dysfunction as evidenced by lactic acidemia and hypotension. The patient did ultimately respond from a hemodynamic perspective to IV fluid resuscitation and the initiation of midodrine and stress dose steroids. The patient was admitted to the hospital last month with a gram-negative complicated UTI and bacteremia. His nephrostomy tube was last exchanged during his prior hospitalization. He does have a history of questionable adrenal insufficiency and chronic hypotension, requiring scheduled midodrine. Plan to continue antimicrobials, per ID recommendations. Given stability and hemodynamic status, stress dose steroids can be weaned as tolerated. 2. End-stage renal disease on hemodialysis Nephrology following to assist with hemodialysis needs. 3. Relative adrenal insufficiency with persistent/chronic hypotension Continue baseline midodrine regimen. Continue to wean stress dose steroids as tolerated by hemodynamic status. 4. History of congestive heart failure/anemia/spina bifida with paraplegia/obesity/obstructive sleep apnea Complicates care, management, recovery and prognosis. Continue home supportive measures. Continue nocturnal BiPAP therapy. This note was generated with [employer] dictation software. It may contain incorrect words, spelling, and punctuation that were not noted in checking the note before signing. Subjective Subjective The patient was seen and examined at the bedside this morning. Events from the last 24 hours have been reviewed. The patient is currently afebrile, hemodynamically stable and maintaining appropriate oxygen saturations on room air. The patient is documented to be overall net +2.6 L for the hospitalization. The patient is resting comfortably in bed without any specific complaints. Objective Data Objective Data The patient's most recent lab work, culture data and imaging studies have all been personally reviewed. Preliminary urine culture dated October 28 was positive for Acinetobacter. Preliminary blood culture is growing Staph aureus. Vital Signs: Vital Signs Temp Pulse Resp BP Pulse Ox O2 Del Method O2 Flow Rate 97.6 F L 85 18 128/88 H 95 Room Air 1 10/30/22 05:00 10/30/22 05:00 10/30/22 05:00 10/30/22 05:00 10/30/22 05:00 10/30/22 05:00 10/29/22 15:42 FiO2 30 10/30/22 04:55 Oxygen Flow Rate (L/min) 1 Oxygen Delivery Method Room Air Weight: 229 lb 11.547 oz Body Mass Index (BMI) 42.0 Intake & Output: Intake and Output for Last 24 Hours 10/28/22 10/29/22 10/30/22 23:59 23:59 23:59 Intake Total 750 / 750 2034 / 2034 Output Total 90 / 190 100 / 100 Balance 750 / 750 1945 / 1845 -100 / -100 Lab / Micro Data Attestation: I reviewed the patient's lab results. 10/29/22 03:40 10/29/22 03:40 Labs: Laboratory Results - last 24 hr 10/28/22 20:00: Diff Path Review Reviewed 10/29/22 03:40: Diff Path Review Reviewed Micro: Microbiology 10/28/22 20:00 Blood Culture (Wb) - Anticubital Right Blood Culture - Preliminary 10/28/22 21:17 Blood Culture (Wb) - Anticubital Right Bacteria Detection (PCR) - Final Staphylococcus aureus 10/28/22 21:17 Blood Culture (Wb) - Anticubital Right Blood Culture - Preliminary Staphylococcus aureus 10/28/22 20:36 Urine Catheter - Catheter Urine Culture - Preliminary Acinetobacter baumannii 10/28/22 20:36 Stool C. difficile GDH Antigen & Toxins - Final 10/28/22 20:36 Stool C. difficile DNA Amplification - Final Physical Exam Const alert and no apparent distress General Appearance: cooperative Nutritional Appearance: obese HEENT normocephalic and head/scalp atraumatic Eyes PERRL, EOMs intact bilaterally and conjunctivae normal Neck supple General: trachea midline Chest inspection of chest normal Resp normal respiratory effort Auscultation: diminished lung sounds; Negative for rales, rhonchi or wheezes Cardio regular rate, regular rhythm, S1 normal heart sound and S2 normal heart sound GI normal to inspection, nondistended, normoactive bowel sounds Extremity General Extremity: edema; Negative for clubbing Skin General Skin Exam: venous stasis and dermatitis Neuro oriented x3 and no focal motor deficits Neuro Narrative: Baseline paraplegia Psych cooperative and affect normal Charges/Coding Visit Charges Inpatient E&M: 49232 Subs Hosp L2
[2022-10-30] MEDS: SEVELAMER CARBONATE 800 MG TABLET PO (11:37)
--- NOTE | 2022-10-30 13:46 | PN.ID_ITS ---
Physical Exam Narrative Feeling better, no fever, no new joint pain Const alert and no apparent distress Resp normal air movement and clear to auscultation bilaterally Cardio regular rate and regular rhythm GI soft to palpation, non-tender and non-distended Skin Skin Narrative: no new rash ID ID: Route of nutrition/ use of supplements: [] Nutritional Intake: [] IV Site: [] Bonilla Catheter: [] Assessment & Plan Assessment/Plan (1) Bacteremia: PLAN: PCR showing mSSA. Will check repeat bcx and has pending echo. Suspected source is deep R ischial wound with possible osteo seen on CT. Recommend plastic surgery eval and wound culture. Ucx with XDR Acinetobacter, will request additional susceptibilities. On flagyl for cdiff at [facility], will continue, diarrhea controlled. Cont linezolid/cefepime/flagyl. Has tolerated cefepime in recent past. Will follow (2) Sepsis: (3) Decubitus ulcer: (4) UTI (urinary tract infection):
--- NOTE | 2022-10-30 17:03 | PCM.PN.HOSP ---
Reason for Visit Reason for Visit: Diagnoses Sepsis, unspecified organism (10/29/22) Pressure ulcer of unspecified site, unspecified stage (10/29/22) Urinary tract infection, site not specified (10/29/22) Bacteremia (10/29/22) Subjective Subjective Patient was seen and examined today, he remains afebrile, I talked briefly with infectious diseases-they would like the patient to be seen by plastic surgery regarding his right ischial wound. Patient continues on Zyvox, cefepime, and Flagyl Objective Data Objective Data Vital Signs: Vital Signs Temp Pulse Resp BP Pulse Ox O2 Del Method O2 Flow Rate 97.4 F L 80 18 159/98 H 90 Room Air 1 10/30/22 14:39 10/30/22 14:39 10/30/22 14:39 10/30/22 14:39 10/30/22 11:00 10/30/22 14:39 10/29/22 15:42 FiO2 30 10/30/22 04:55 Oxygen Flow Rate (L/min) 1 Oxygen Delivery Method Room Air Weight: 104.2 kg Body Mass Index (BMI) 42.0 Intake & Output: Intake and Output for Last 24 Hours 10/28/22 10/29/22 10/30/22 23:59 23:59 23:59 Intake Total 750 / 750 2035 / 2035 700 / 700 Output Total 90 / 190 100 / 100 Balance 750 / 750 1945 / 1845 600 / 600 Lab / Micro Data 10/29/22 03:40 10/29/22 03:40 Micro: Microbiology 10/30/22 09:00 Wound - Ischium Gram Stain - Final 10/28/22 20:00 Blood Culture (Wb) - Anticubital Right Blood Culture - Preliminary 10/28/22 21:17 Blood Culture (Wb) - Anticubital Right Bacteria Detection (PCR) - Final Staphylococcus aureus 10/28/22 21:17 Blood Culture (Wb) - Anticubital Right Blood Culture - Preliminary Staphylococcus aureus 10/28/22 20:36 Urine Catheter - Catheter Urine Culture - Preliminary Acinetobacter baumannii 10/28/22 20:36 Stool C. difficile GDH Antigen & Toxins - Final 10/28/22 20:36 Stool C. difficile DNA Amplification - Final Radiography Diagnostic Testing: Radiology Impression Echocardiogram 10/29/22 15:24 Interpretation Summary Normal LV size. Left ventricular systolic function is normal. The estimated ejection fraction is 60 %. Pulmonary artery systolic pressure is 30 mmHg. Contrast injection was performed. Ordering Physician: Luis Amador Performed By: Ahsan Loredo RCS Physical Exam Const alert, oriented x3 and no apparent distress General Appearance: cooperative, well kempt and well developed Orientation / Consciousness: awake, oriented to person, oriented to place and oriented to time HEENT normocephalic and moist oral mucous membranes Eyes PERRL, EOMs intact bilaterally and conjunctivae normal Neck supple, no JVD, thyroid normal and no carotid bruits General: trachea midline Resp normal respiratory effort, no retractions, no use of accessory muscles and clear to auscultation bilaterally Auscultation: Negative for rales, rhonchi or wheezes Cardio regular rate, regular rhythm, S1 normal heart sound, S2 normal heart sound, no murmurs, no rub and no gallops GI normal to inspection, nondistended, normoactive bowel sounds, soft to palpation, non-tender and non-distended GI Narrative: Patient is morbidly obese, nephrostomy tube in place in the right lateral abdominal area Extremity Extremity Narrative: Generalized atrophy is noted over the lower extremities Neuro oriented x3, CN's II-XII intact bilaterally and no sensory deficits noted Sensorium / Orientation: awake, alert, oriented to person, oriented to place and oriented to time Speech: speech normal Psych affect normal Assessment & Plan Assessment/Plan (1) Bacteremia: PLAN: Plan 1. Methicillin sensitive Staph aureus bacteremia-possibly from ischial decubitus infection, continue antibiotic coverage per infectious diseases #2 right ischial decubitus with infection-continue antibiotic coverage per ID #3 Acinetobacter urinary tract infection--this organism is resistant to many antibiotics, infectious diseases have requested additional susceptibilities #4 sepsis secondary to methicillin sensitive Staph aureus-continue antibiotic coverage per infectious diseases #5 end-stage renal disease on dialysis-nephrology is participating in his care #6 spina bifida with paraplegia-complicates care, medical course, recovery, and prognosis #7 morbid obesity-complicates care, medical course, recovery, and prognosis #8 obstructive sleep apnea-patient is on CPAP at night #9 right nephrostomy tube secondary to obstruction from renal calculi-I talked to urology yesterday, patient is at high risk for treatment of his right kidney stones here at the hospital, urology will not attempt any removal of stones at this hospital here. Total clinical time spent by myself addressing the patient's medical issues, reviewing all of his data, and collaborating with patient's care team: 35 minutes Charges/Coding Visit Charges Inpatient E&M: 91972 Subs Hosp L2
--- NOTE | 2022-10-30 18:15 | DIALYSIS ---
Hemodialysis complete with 3 liters fluid removed. Dialysis CVC dressing changed, site clean and dry. Pt tolerated treatment without difficulty.
[2022-10-30] MEDS: 0.9% Saline Lock 10 ML Syringe IV (22:53)
[2022-10-30] MEDS: Acetaminophen 325 MG Tablet 650 MG PO (23:01)
[2022-10-31] VITALS (8 sets, daily range): BP systolic 110–154; BP diastolic 64–92; PULSE 60–88; RESP 12–26; TEMP 36.1–36.8; O2SAT 94–100; BMI 40.1
[2022-10-31] MEDS: Hydrocortisone Sod Succinate 100 MG/2 ML Vial IV ×4 (05:37→23:25)
[2022-10-31] MEDS: 0.9% Saline Lock 10 ML Syringe IV ×4 (05:38→23:25)
[2022-10-31] MEDS: metroNIDAZOLE 500 MG Tablet PO ×3 (05:38→21:48)
[2022-10-31] MEDS: Gabapentin 100 MG Capsule PO (10:23)
[2022-10-31] MEDS: Sertraline 50 MG Tablet 25 MG PO (10:33)
[2022-10-31] MEDS: SEVELAMER CARBONATE 800 MG TABLET PO ×3 (10:33→17:25)
[2022-10-31] MEDS: Ferrous Sulfate 325 MG Tablet PO (10:33)
[2022-10-31] MEDS: Folic Acid/Vitamin B Comp W-C 1 Capsule 1 CAP PO (10:33)
[2022-10-31] MEDS: Pantoprazole Sodium 40 MG Tablet PO ×2 (10:34→21:48)
[2022-10-31] MEDS: Linezolid 600 MG Tablet PO ×2 (10:34→21:48)
[2022-10-31] MEDS: Menthol/Lanolin/Calamine/Znox 113 GM Tube 1 APPLIC TOPICAL ×2 (10:35→21:49)
[2022-10-31] MEDS: Midodrine HCl 5 MG Tablet 20 MG PO ×2 (10:35→11:54)
[2022-10-31] MEDS: DAKIN'S SOL HALF STRENGTH (=0.25%) 1 APPLIC TOPICAL (10:36)
[2022-10-31] MEDS: Heparin Injection (Vial) 5,000 UNIT/ML VIAL 5000 UNIT SC ×2 (10:36→21:48)
--- NOTE | 2022-10-31 13:21 | PCM.PN.HOSP ---
Reason for Visit Reason for Visit: Diagnoses Sepsis, unspecified organism (10/29/22) Pressure ulcer of unspecified site, unspecified stage (10/29/22) Urinary tract infection, site not specified (10/29/22) Bacteremia (10/29/22) Subjective Subjective Patient was seen and examined today, he denies any fevers or chills. Labs were not drawn on the patient today. Objective Data Objective Data Vital Signs: Vital Signs Temp Pulse Resp BP Pulse Ox O2 Del Method O2 Flow Rate 98.1 F 88 18 110/71 95 Room Air 2 10/31/22 12:00 10/31/22 12:00 10/31/22 12:00 10/31/22 12:00 10/31/22 12:00 10/31/22 12:00 10/30/22 19:47 FiO2 30 10/31/22 05:20 Oxygen Flow Rate (L/min) 2 Oxygen Delivery Method Room Air Weight: 99.5 kg Body Mass Index (BMI) 40.1 Intake & Output: Intake and Output for Last 24 Hours 10/29/22 10/30/22 10/31/22 23:59 23:59 23:59 Intake Total 2034 / 2034 780 / 780 410 / 410 Output Total 90 / 190 3100 / 3200 100 / 100 Balance 1945 / 1845 -2320 / -2420 310 / 310 Lab / Micro Data 10/29/22 03:40 10/29/22 03:40 Micro: Microbiology 10/30/22 09:00 Wound - Ischium Gram Stain - Final 10/30/22 09:00 Wound - Ischium Wound Culture - Preliminary Mixed Gram Pos & Gram Neg Org 10/30/22 08:00 Blood Culture (Wb) - Right Wrist Blood Culture - Preliminary 10/28/22 20:00 Blood Culture (Wb) - Anticubital Right Blood Culture - Final Staphylococcus aureus 10/28/22 21:17 Blood Culture (Wb) - Anticubital Right Bacteria Detection (PCR) - Final Staphylococcus aureus 10/28/22 21:17 Blood Culture (Wb) - Anticubital Right Blood Culture - Final Meth. resistant Staph. aureus 10/28/22 20:36 Urine Catheter - Catheter Urine Culture - Preliminary Acinetobacter baumannii 10/28/22 20:36 Stool C. difficile GDH Antigen & Toxins - Final 10/28/22 20:36 Stool C. difficile DNA Amplification - Final Radiography Diagnostic Testing: Radiology Impression Echocardiogram 10/29/22 15:24 Interpretation Summary Normal LV size. Left ventricular systolic function is normal. The estimated ejection fraction is 60 %. Pulmonary artery systolic pressure is 30 mmHg. Contrast injection was performed. Ordering Physician: Luis Amador Performed By: Ahsan Loredo RCS Physical Exam Narrative alert, oriented x3 and no apparent distress General Appearance: cooperative, well kempt and well developed Orientation / Consciousness: awake, oriented to person, oriented to place and oriented to time HEENT normocephalic and moist oral mucous membranes Eyes PERRL, EOMs intact bilaterally and conjunctivae normal Neck supple, no JVD, thyroid normal and no carotid bruits General: trachea midline Resp normal respiratory effort, no retractions, no use of accessory muscles and clear to auscultation bilaterally Auscultation: Negative for rales, rhonchi or wheezes Cardio regular rate, regular rhythm, S1 normal heart sound, S2 normal heart sound, no murmurs, no rub and no gallops GI normal to inspection, nondistended, normoactive bowel sounds, soft to palpation, non-tender and non-distended GI Narrative: Patient is morbidly obese, nephrostomy tube in place in the right lateral abdominal area Extremity Extremity Narrative: Generalized atrophy is noted over the lower extremities Neuro oriented x3, CN's II-XII intact bilaterally and no sensory deficits noted Sensorium / Orientation: awake, alert, oriented to person, oriented to place and oriented to time Speech: speech normal Psych affect normal Assessment & Plan Assessment/Plan (1) ESRD (end stage renal disease): (2) Bacteremia: PLAN: Plan 1. Methicillin sensitive Staph aureus bacteremia-possibly from ischial decubitus infection, continue antibiotic coverage per infectious diseases #2 right ischial decubitus with infection-continue antibiotic coverage per ID, plastic surgery will evaluate the patient in consultation #3 Acinetobacter urinary tract infection--this organism is resistant to many antibiotics, infectious diseases have requested additional susceptibilities #4 sepsis secondary to methicillin sensitive Staph aureus-continue antibiotic coverage per infectious diseases #5 end-stage renal disease on dialysis-nephrology is participating in his care #6 spina bifida with paraplegia-complicates care, medical course, recovery, and prognosis #7 morbid obesity-complicates care, medical course, recovery, and prognosis #8 obstructive sleep apnea-patient is on CPAP at night #9 right nephrostomy tube secondary to obstruction from renal calculi-I talked to urology yesterday, patient is at high risk for treatment of his right kidney stones here at the hospital, urology will not attempt any removal of stones at this hospital here. Total clinical time spent by myself addressing the patient's medical issues, reviewing all of his data, and collaborating with patient's care team: 35 minutes Charges/Coding Visit Charges Inpatient E&M: 18412 Subs Hosp L2
[2022-11-01] VITALS (9 sets, daily range): BP systolic 112–155; BP diastolic 62–98; PULSE 54–96; RESP 12–27; TEMP 36.3–36.7; O2SAT 94–100; BMI 41.0
[2022-11-01] MEDS: metroNIDAZOLE 500 MG Tablet PO ×3 (05:31→21:42)
[2022-11-01] MEDS: Hydrocortisone Sod Succinate 100 MG/2 ML Vial IV ×3 (05:33→17:44)
[2022-11-01 05:42] LABS: Absolute Lymphocyte Count 1.47 X10^3/uL (0.83-4.51); Absolute Neutrophil Count 12.1 X10^3/uL (2.0-7.7); Basophil# 0.02 X10^3/uL; Basophil% 0.1 % (0-1); Hematocrit 34.2 % (40-54); Hemoglobin 9.9 g/dL (13.0-16.5); Lymphocyte # 1.47 X10^3/ul (0.83-4.51); Lymphocyte % 10.3 % (19-41); Mean Corp Hgb Conc 28.9 g/dL (32-36); Mean Corpuscular Hgb 25.7 pg (27.0-32.0); Mean Corpuscular Volume 88.8 fL (80-94); Mean Platelet Vol. 9.9 fl (6.2-12.0); Monocyte# 0.62 X10^3/uL; Monocyte% 4.3 % (0-10); NRBC Flagged by Analyzer 0 % (0-5); Neutrophil # 12.06 X10^3/uL (2.7-7.7); Neutrophil % 84.5 % (47-70); Platelet Count 672 K/mm3 (150-450); RBC Distribution Width CV 17.8 % (11.6-14.6); RBC Distribution Width SD 57.1 fl (35.1-43.9); Red Blood Count 3.85 M/mm3 (4.6-6.2); White Blood Count 14.3 K/mm3 (4.4-11.0)
[2022-11-01] MEDS: Pantoprazole Sodium 40 MG Tablet PO ×2 (10:05→21:42)
[2022-11-01] MEDS: SEVELAMER CARBONATE 800 MG TABLET PO ×3 (10:05→17:44)
[2022-11-01] MEDS: Folic Acid/Vitamin B Comp W-C 1 Capsule 1 CAP PO (10:05)
[2022-11-01] MEDS: Sertraline 50 MG Tablet 25 MG PO (10:05)
[2022-11-01] MEDS: Menthol/Lanolin/Calamine/Znox 113 GM Tube 1 APPLIC TOPICAL ×2 (10:06→21:43)
[2022-11-01] MEDS: Ferrous Sulfate 325 MG Tablet PO (10:06)
[2022-11-01] MEDS: Gabapentin 100 MG Capsule PO (10:06)
[2022-11-01] MEDS: DAKIN'S SOL HALF STRENGTH (=0.25%) 1 APPLIC TOPICAL (10:07)
[2022-11-01] MEDS: Linezolid 600 MG Tablet PO ×2 (10:08→21:42)
[2022-11-01] MEDS: Heparin Injection (Vial) 5,000 UNIT/ML VIAL 5000 UNIT SC ×2 (10:08→21:42)
[2022-11-01] MEDS: Midodrine HCl 5 MG Tablet 20 MG PO (12:03)
--- NOTE | 2022-11-01 15:45 | PN.HOSP_ITS ---
Reason for Visit Reason for Visit: Diagnoses Sepsis, unspecified organism (10/29/22) Pressure ulcer of unspecified site, unspecified stage (10/29/22) End stage renal disease (10/29/22) Urinary tract infection, site not specified (10/29/22) Bacteremia (10/29/22) Subjective Subjective Patient was seen and examined today, he does not complain of any fevers or chills, patient's white blood cell count today was 14.3, hemoglobin was 9.9. Objective Data Objective Data Vital Signs: Vital Signs Temp Pulse Resp BP Pulse Ox O2 Del Method O2 Flow Rate 97.3 F L 96 18 112/69 96 Room Air 2 11/01/22 12:00 11/01/22 12:00 11/01/22 12:00 11/01/22 12:00 11/01/22 12:00 11/01/22 14:10 10/30/22 19:47 FiO2 30 11/01/22 03:20 Oxygen Flow Rate (L/min) 2 Oxygen Delivery Method Room Air Weight: 101.8 kg Body Mass Index (BMI) 41.0 Intake & Output: Intake and Output for Last 24 Hours 10/30/22 10/31/22 11/01/22 23:59 23:59 23:59 Intake Total 780 / 780 890 / 890 290 / 290 Output Total 3100 / 3200 100 / 100 125 / 125 Balance -2320 / -2420 790 / 790 165 / 165 Lab / Micro Data 11/01/22 05:10 10/29/22 03:40 Labs: Laboratory Results - last 24 hr 11/01/22 05:10: WBC 14.3 H, RBC 3.85 L, Hgb 9.9 L, Hct 34.2 L, MCV 88.8, MCH 25.7 L, MCHC 28.9 L, RDW Std Deviation 57.1 H, RDW Coeff of Francisco 17.8 H, Plt Count 672 H, MPV 9.9, Immature Gran % (Auto) 0.800, Neut % (Auto) 84.5 H, Lymph % (Auto) 10.3 L, Phelps % (Auto) 4.3, Eos % (Auto) 0.0, Baso % (Auto) 0.1, Absolute Neuts (auto) 12.1 H, Absolute Lymphs (auto) 1.47, Nucleated RBC % 0 Micro: Microbiology 10/30/22 09:00 Wound - Ischium Gram Stain - Final 10/30/22 09:00 Wound - Ischium Wound Culture - Preliminary Gram negative dl Gram negative dl#2 Gram negative dl#3 Staphylococcus species 10/30/22 09:00 Wound - Ischium Anaerobic Culture - Preliminary 10/31/22 06:11 Blood Culture (Wb) - Right Forearm Blood Culture - Preliminary No growth in 48 hours. 10/30/22 08:00 Blood Culture (Wb) - Right Wrist Blood Culture - Preliminary Staphylococcus aureus 10/28/22 20:00 Blood Culture (Wb) - Anticubital Right Blood Culture - Final Staphylococcus aureus 10/28/22 21:17 Blood Culture (Wb) - Anticubital Right Bacteria Detection (PCR) - Final Staphylococcus aureus 10/28/22 21:17 Blood Culture (Wb) - Anticubital Right Blood Culture - Final Meth. resistant Staph. aureus 10/28/22 20:36 Urine Catheter - Catheter Urine Culture - Preliminary Acinetobacter baumannii 10/28/22 20:36 Stool C. difficile GDH Antigen & Toxins - Final 10/28/22 20:36 Stool C. difficile DNA Amplification - Final Physical Exam Narrative alert, oriented x3 and no apparent distress General Appearance: cooperative, well kempt and well developed Orientation / Consciousness: awake, oriented to person, oriented to place and oriented to time HEENT normocephalic and moist oral mucous membranes Eyes PERRL, EOMs intact bilaterally and conjunctivae normal Neck supple, no JVD, thyroid normal and no carotid bruits General: trachea midline Resp normal respiratory effort, no retractions, no use of accessory muscles and clear to auscultation bilaterally Auscultation: Negative for rales, rhonchi or wheezes Cardio regular rate, regular rhythm, S1 normal heart sound, S2 normal heart sound, no murmurs, no rub and no gallops GI normal to inspection, nondistended, normoactive bowel sounds, soft to palpation, non-tender and non-distended GI Narrative: Patient is morbidly obese, nephrostomy tube in place in the right lateral ab dominal area Extremity Extremity Narrative: Generalized atrophy is noted over the lower extremities Neuro oriented x3, CN's II-XII intact bilaterally and no sensory deficits noted Sensorium / Orientation: awake, alert, oriented to person, oriented to place and oriented to time Speech: speech normal Psych affect normal Assessment & Plan Assessment/Plan (1) Bacteremia: (2) ESRD (end stage renal disease): PLAN: Plan 1. Methicillin sensitive Staph aureus bacteremia-possibly from ischial decubitus infection, continue antibiotic coverage per infectious diseases #2 right ischial decubitus with infection-continue antibiotic coverage per ID, plastic surgery will evaluate the patient in consultation, I have attempted to contact plastic surgery (Dr. Davalos) since yesterday without success, await contact from Dr. Davalos #3 Acinetobacter urinary tract infection--this organism is resistant to many antibiotics, infectious diseases have requested additional susceptibilities #4 sepsis secondary to methicillin sensitive Staph aureus-continue antibiotic coverage per infectious diseases #5 end-stage renal disease on dialysis-nephrology is participating in his care #6 spina bifida with paraplegia-complicates care, medical course, recovery, and prognosis #7 morbid obesity-complicates care, medical course, recovery, and prognosis #8 obstructive sleep apnea-patient is on CPAP at night #9 right nephrostomy tube secondary to obstruction from renal calculi-I talked to urology yesterday, patient is at high risk for treatment of his right kidney stones here at the hospital, urology will not attempt any removal of stones at this hospital here. Total clinical time spent by myself addressing the patient's medical issues, reviewing all of his data, and collaborating with patient's care team: 35 minutes Charges/Coding Visit Charges Inpatient E&M: 27846 Subs Hosp L2
[2022-11-01] MEDS: 0.9% Saline Lock 10 ML Syringe IV (17:44)
--- NOTE | 2022-11-01 18:48 | PCM.PN.REN ---
Objective Data Objective Data Vital Signs: Vital Signs Temp Pulse Resp BP Pulse Ox O2 Del Method O2 Flow Rate 98.0 F 62 16 155/98 H 94 Room Air 2 11/01/22 17:40 11/01/22 17:40 11/01/22 17:40 11/01/22 17:40 11/01/22 17:40 11/01/22 17:40 10/30/22 19:47 FiO2 30 11/01/22 03:20 Oxygen Flow Rate (L/min) 2 Oxygen Delivery Method Room Air Weight: 101.8 kg Body Mass Index (BMI) 41.0 Intake & Output: Intake and Output for Last 24 Hours 10/30/22 10/31/22 11/01/22 23:59 23:59 23:59 Intake Total 780 / 780 890 / 890 650 / 650 Output Total 3100 / 3200 100 / 100 125 / 125 Balance -2320 / -2420 790 / 790 525 / 525 Lab / Micro Data 11/01/22 05:10 10/29/22 03:40 Labs: Laboratory Results - last 24 hr 11/01/22 05:10: WBC 14.3 H, RBC 3.85 L, Hgb 9.9 L, Hct 34.2 L, MCV 88.8, MCH 25.7 L, MCHC 28.9 L, RDW Std Deviation 57.1 H, RDW Coeff of Francisco 17.8 H, Plt Count 672 H, MPV 9.9, Immature Gran % (Auto) 0.800, Neut % (Auto) 84.5 H, Lymph % (Auto) 10.3 L, Levy % (Auto) 4.3, Eos % (Auto) 0.0, Baso % (Auto) 0.1, Absolute Neuts (auto) 12.1 H, Absolute Lymphs (auto) 1.47, Nucleated RBC % 0 Micro: Microbiology 10/30/22 09:00 Wound - Ischium Gram Stain - Final 10/30/22 09:00 Wound - Ischium Wound Culture - Preliminary Gram negative dl Gram negative dl#2 Gram negative dl#3 Staphylococcus species 10/30/22 09:00 Wound - Ischium Anaerobic Culture - Preliminary 10/31/22 06:11 Blood Culture (Wb) - Right Forearm Blood Culture - Preliminary No growth in 48 hours. 10/30/22 08:00 Blood Culture (Wb) - Right Wrist Blood Culture - Preliminary Staphylococcus aureus 10/28/22 20:00 Blood Culture (Wb) - Anticubital Right Blood Culture - Final Staphylococcus aureus 10/28/22 21:17 Blood Culture (Wb) - Anticubital Right Bacteria Detection (PCR) - Final Staphylococcus aureus 10/28/22 21:17 Blood Culture (Wb) - Anticubital Right Blood Culture - Final Meth. resistant Staph. aureus 10/28/22 20:36 Urine Catheter - Catheter Urine Culture - Preliminary Acinetobacter baumannii 10/28/22 20:36 Stool C. difficile GDH Antigen & Toxins - Final 10/28/22 20:36 Stool C. difficile DNA Amplification - Final Physical Exam Narrative Alert oriented x3, no apparent distress S1, S2, RRR Lung sounds clear anteriorly and posteriorly. No wheezes, rhonchi rales noted No edema Right chest tunneled HD catheter dressing clean, dry and intact Left forearm AV fistula positive thrill and bruit noted Assessment & Plan Assessment/Plan (1) ESRD (end stage renal disease): (2) Bacteremia: (3) Decubitus ulcer: (4) UTI (urinary tract infection): (5) Hypotension: PLAN: Plan This is a pleasant 27-year-old male with past medical history significant for ESRD on hemodialysis who was brought to the emergency room for evaluation of fever and fatigue. Admitted for bacteremia. Nephrology consulted for hemodialysis needs. Patient currently dialyzes at [facility] on a Wednesday, Wednesday, , Wednesday schedule; however patient was due to be discharged from long term to home this weekend. His outpatient hemodialysis schedule is arranged at [facility] on a Wednesday, , Wednesday schedule. However, discharge plan is up in the air at this point because of his current infection. We will keep the patient on MWF schedule for now. We will plan for hemodialysis tomorrow and attempt fluid removal as patient/blood pressure tolerates. Patient currently has tunneled hemodialysis catheter that is being used for dialysis. The patient has left lower arm AV fistula that was created in June. It does not look like it is ready to be used and likely need further work. Per patient report this was created in June however he has not been able to follow-up with vascular due to conflict in schedule and hospitalizations. ID consulted. Blood cultures showing MSSA. Suspected source is deep right hip/ischial wound and possible osteo was seen on CT from 10/28. Repeat blood cultures pending. Echo pending. Patient is on IV antibiotics. Patient has history of chronic hypotension and is on midodrine 20 mg 3 times daily. Blood pressures acceptable. Patient has a history of anemia of chronic disease. We will monitor hemoglobin trends. Further orders forthcoming as hospitalization evolves, thank you for allowing us to participate in the care of Mr. Hammond.
[2022-11-02] VITALS (18 sets, daily range): BP systolic 117–247; BP diastolic 85–105; PULSE 57–85; RESP 12–24; TEMP 36.4–36.6; O2SAT 94–100; BMI 41.7; BMI 41.3
[2022-11-02] MEDS: Hydrocortisone Sod Succinate 100 MG/2 ML Vial IV ×3 (00:47→13:07)
[2022-11-02] MEDS: metroNIDAZOLE 500 MG Tablet PO ×3 (05:28→21:53)
[2022-11-02 08:49] LABS: Absolute Lymphocyte Count 0.95 X10^3/uL (0.83-4.51); Absolute Neutrophil Count 10.7 X10^3/uL (2.0-7.7); Basophil# 0.01 X10^3/uL; Basophil% 0.1 % (0-1); Hematocrit 34.9 % (40-54); Hemoglobin 10.5 g/dL (13.0-16.5); Lymphocyte # 0.95 X10^3/ul (0.83-4.51); Lymphocyte % 7.9 % (19-41); Mean Corp Hgb Conc 30.1 g/dL (32-36); Mean Corpuscular Hgb 26.2 pg (27.0-32.0); Mean Platelet Vol. 9.6 fl (6.2-12.0); Monocyte# 0.32 X10^3/uL; Monocyte% 2.7 % (0-10); NRBC Flagged by Analyzer 0 % (0-5); Neutrophil # 10.68 X10^3/uL (2.7-7.7); Neutrophil % 88.6 % (47-70); Platelet Count 659 K/mm3 (150-450); RBC Distribution Width CV 17.5 % (11.6-14.6); RBC Distribution Width SD 55.1 fl (35.1-43.9); Red Blood Count 4.01 M/mm3 (4.6-6.2); White Blood Count 12.1 K/mm3 (4.4-11.0)
[2022-11-02] MEDS: DAKIN'S SOL HALF STRENGTH (=0.25%) 1 APPLIC TOPICAL (09:47)
[2022-11-02 09:49] LABS: Anion Gap 11 (5-15); BUN 103 mg/dL (7-18); BUN/Creat Ratio 20.7 RATIO (10-20); Chloride 105 mmol/L (98-107); Creatinine, Serum 4.98 mg/dL (0.70-1.30); EST Glomerular Filtration Rate 15 mL/min (>60); Est Glom Filt Rate - Afr Amer 18 mL/min (>60); Glucose 127 mg/dL (74-106); Potassium 4.6 mmol/L (3.5-5.1); Sodium Level 137 mmol/L (136-145)
[2022-11-02] MEDS: SEVELAMER CARBONATE 800 MG TABLET PO ×3 (09:50→18:50)
[2022-11-02] MEDS: Sertraline 50 MG Tablet 25 MG PO (09:50)
[2022-11-02] MEDS: Linezolid 600 MG Tablet PO ×2 (09:50→21:55)
[2022-11-02] MEDS: Pantoprazole Sodium 40 MG Tablet PO ×2 (09:50→21:54)
[2022-11-02] MEDS: Midodrine HCl 5 MG Tablet 20 MG PO ×2 (09:50→13:07)
[2022-11-02] MEDS: Folic Acid/Vitamin B Comp W-C 1 Capsule 1 CAP PO (09:51)
[2022-11-02] MEDS: Ferrous Sulfate 325 MG Tablet PO (09:51)
[2022-11-02] MEDS: Heparin Injection (Vial) 5,000 UNIT/ML VIAL 5000 UNIT SC ×2 (09:52→21:53)
[2022-11-02] MEDS: Menthol/Lanolin/Calamine/Znox 113 GM Tube 1 APPLIC TOPICAL ×2 (09:52→21:55)
[2022-11-02] MEDS: Gabapentin 100 MG Capsule PO (10:40)
--- NOTE | 2022-11-02 10:40 | WOUNDNOTE ---
wound photo: right abdomen
[2022-11-02] MEDS: 0.9% Saline Lock 10 ML Syringe IV ×4 (10:41→21:56)
--- NOTE | 2022-11-02 10:41 | WOUNDNOTE ---
wound photo: right ischium
--- NOTE | 2022-11-02 10:42 | WOUNDNOTE ---
wound photo: left ischium
[2022-11-02] MEDS: PureFlow B 2K Dialysis Soln 1 BAG 6 BAG PF ×2 (14:41→14:42)
[2022-11-02] MEDS: 0.9% Normal Saline 1,000 ML IV.SOLN. 1000 ML OPERA.SITE (14:43)
--- NOTE | 2022-11-02 15:07 | PCM.PN.HOSP ---
Reason for Visit Reason for Visit: Fever Subjective Subjective Mr. Hammond is a 27-year-old white male with a history of spina bifida and paraplegia who presented to the emergency department on 10/28/2022 with fever. Patient was recently diagnosed with C. difficile infection and was placed on oral Flagyl. Treatment was about 10 days in duration prior to presentation. He evidently had a hypotension on the day of presentation with systolic pressures in the 90s. His oxygen saturation also dropped to 85%. Family indicated on presentation that they have let his infections go too long before getting addressed and he ended up with sepsis previously. They were concerned about sepsis and brought him in. He had been living at [facility] with plans to be transition to home. Vital signs on presentation showed a blood pressure of 81/45 at the nicole but did respond to IV fluids and did not require pressors. His serum creatinine and BUN are elevated however the patient is on dialysis at baseline. His urine was consistent with infection and he has chronic nephrostomy tubes per Dr. Cohen. CTA of the chest was performed due to mild hypoxia and was suboptimal but no definitive evidence of PE was noted. A CT of the abdomen pelvis was performed and was concerning for bowel wall thickening in the ascending to transverse colon with some concern for incarceration however the patient was seen by general surgery and no concern for incarceration was identified per their examination. Patient did have a large decubitus wound over the right posterior ischium with findings concerning for osteomyelitis as well as a moderate right hip joint effusion. He was admitted to the ICU and placed on broad-spectrum antibiotics. Consultations to pulmonary/critical care medicine, infectious disease, and nephrology were placed. He has been maintained on cefepime, oral Flagyl, and linezolid during his hospitalization. Urine culture demonstrated Acinetobacter that has multidrug resistance, blood cultures show Staph aureus that is methicillin resistant, and wound cultures show Klebsiella pneumonia, Acinetobacter, and Staph aureus. Infectious disease felt that the patient should be further evaluated by plastic surgery given the appearance of his wound and suggestion of osteomyelitis. Unfortunately, plastic surgery is not available for evaluation and he is being transferred to [facility] where he has had previous surgeries. Per discussion with the transfer center, they do feel that a bed may become available later today and if not today tomorrow. Patient is currently on a transfer list and they will call a bed becomes available. Objective Data Objective Data Vital Signs: Vital Signs Temp Pulse Resp BP Pulse Ox O2 Del Method O2 Flow Rate 97.6 F L 74 14 141/99 H 96 Room Air 2 11/02/22 14:10 11/02/22 14:58 11/02/22 14:58 11/02/22 14:58 11/02/22 14:58 11/02/22 14:58 10/30/22 19:47 FiO2 30 11/02/22 02:40 Oxygen Flow Rate (L/min) 2 Oxygen Delivery Method Room Air Weight: 103.5 kg Body Mass Index (BMI) 41.7 Intake & Output: Intake and Output for Last 24 Hours 10/31/22 11/01/22 11/02/22 23:59 23:59 23:59 Intake Total 890 / 890 650 / 650 50 / 50 Output Total 100 / 100 125 / 190 95 / 95 Balance 790 / 790 525 / 460 -45 / -45 Lab / Micro Data 11/02/22 08:29 11/02/22 08:29 Labs: Laboratory Results - last 24 hr 11/02/22 08:29: WBC 12.1 H, RBC 4.01 L, Hgb 10.5 L, Hct 34.9 L, MCV 87.0, MCH 26.2 L, MCHC 30.1 L, RDW Std Deviation 55.1 H, RDW Coeff of Francisco 17.5 H, Plt Count 659 H, MPV 9.6, Immature Gran % (Auto) 0.700, Neut % (Auto) 88.6 H, Lymph % (Auto) 7.9 L, [place] % (Auto) 2.7, Eos % (Auto) 0.0, Baso % (Auto) 0.1, Absolute Neuts (auto) 10.7 H, Absolute Lymphs (auto) 0.95, Nucleated RBC % 0, Sodium 137, Potassium 4.6, Chloride 105, Carbon Dioxide 21.0, Anion Gap 11, BUN 103 H*, Creatinine 4.98 H, Estim Creat Clear Calc 16.90, Est GFR (MDRD) Af Amer 18 L, Est GFR (MDRD) Non-Af 15 L, BUN/Creatinine Ratio 20.7 H, Glucose 127 H, Calcium 9.0 Micro: Microbiology 10/30/22 09:00 Wound - Ischium Gram Stain - Final 10/30/22 09:00 Wound - Ischium Wound Culture - Final Klebsiella pneumoniae sp pneum Acinetobacter baumannii Staphylococcus aureus 10/30/22 09:00 Wound - Ischium Anaerobic Culture - Final No anaerobic bacteria isolated. 10/31/22 06:11 Blood Culture (Wb) - Right Forearm Blood Culture - Preliminary No growth in 48 hours. 10/30/22 08:00 Blood Culture (Wb) - Right Wrist Blood Culture - Preliminary Staphylococcus aureus 10/28/22 20:00 Blood Culture (Wb) - Anticubital Right Blood Culture - Final Staphylococcus aureus 10/28/22 21:17 Blood Culture (Wb) - Anticubital Right Bacteria Detection (PCR) - Final Staphylococcus aureus 10/28/22 21:17 Blood Culture (Wb) - Anticubital Right Blood Culture - Final Meth. resistant Staph. aureus 10/28/22 20:36 Urine Catheter - Catheter Urine Culture - Preliminary Acinetobacter baumannii 10/28/22 20:36 Stool C. difficile GDH Antigen & Toxins - Final 10/28/22 20:36 Stool C. difficile DNA Amplification - Final Physical Exam Const alert, oriented x3, no apparent distress and well nourished Constitutional Narrative: Young, white male, sitting up in bed, morbidly obese, appears comfortable and nontoxic, nursing at bedside HEENT head/scalp atraumatic and moist oral mucous membranes HEENT Narrative: Mallampati 3, no thrush Head and Scalp: normocephalic Resp normal respiratory effort, no retractions, no use of accessory muscles and clear to auscultation bilaterally Cardio regular rate, regular rhythm, S1 normal heart sound, S2 normal heart sound, no murmurs, no rub, no gallops and no clicks GI normal to inspection, nondistended, normoactive bowel sounds, soft to palpation and non-tender GI Narrative: Right lower quadrant nephrostomy tube in place draining pale yellow urine Extremity Extremity Narrative: No clubbing cyanosis or edema, bilateral lower extremities with significantly decreased muscle mass in size reduction due to history of spina bifida Neuro oriented x3 and CN's II-XII intact bilaterally Neuro Narrative: Decreased movement in bilateral lower extremities, bilateral upper extremities with normal range of motion and intact Speech: speech normal Psych affect normal Psych Narrative: Very pleasant, appropriately interactive Assessment & Plan Assessment/Plan (1) Sepsis: (2) Bacteremia: (3) UTI (urinary tract infection): (4) Hydronephrosis: (5) Nephrolithiasis: (6) Decubitus ulcer: PLAN: Plan Sepsis-likely multifactorial -Suspect related to hip/ischium osteomyelitis/wound infection as well as complicated UTI -Sepsis has resolved -Plan to do stress dose steroids, midodrine and IV fluid resuscitation -Pressors required -New antibiotics as ordered -Appreciate infectious disease input Complicated UTI -Patient has nephrostomy tube on the right secondary to obstruction from renal calculi -Conversation with urology on 10/31/2022 and they indicated the patient was a high risk for treatment of his right kidney stones at this hospital and would defer to an outpatient at a different facility that was more tertiary in nature -Continue nephrostomy tubes currently placed -Urine culture shows Acinetobacter that is multidrug-resistant -Continue cefepime and linezolid per infectious disease recommendations Infected pressure ulcer/osteomyelitis -Polymicrobial -ID is amending further debridement and care with surgical consultation -Plastic surgery not available this week--> plan to transfer to tertiary center -Awaiting bed at [facility] -Continue broad-spectrum antibiotics as ordered by infectious disease MRSA bacteremia -Echocardiogram is unremarkable -Patient is unfortunately allergic to vancomycin -Currently on linezolid per infectious disease recommendations -Repeat blood cultures are pending for clearance Recent C. difficile and infection -Continue Flagyl p.o. -Patient with vancomycin allergy End-stage renal disease on HD -Nephrology is following and continue dialysis per nephrology recommendations Adrenal insufficiency -Wean hydrocortisone from 100 every 6 to 50 twice daily -Home hydrocortisone doses are 15 mg p.o. twice daily and 5 mg daily -Continue home midodrine GERD -Continue twice daily PPI Chronic anemia secondary to renal disease -Hemoglobin is stable Leukocytosis -Secondary to the above infections -White count is trending down Depression/insomnia -Continue home sertraline -Continue trial down -Continue home as needed Morbid obesity -BMI 41.7 -Complicates treatment, prognosis, outcomes -Recommend weight loss DVT prophylaxis -Continue heparin but increase to 3 times daily from twice daily dosing given morbid obesity CODE STATUS -Full code Charges/Coding Visit Charges Inpatient E&M: 26078 Subs Hosp L2
--- NOTE | 2022-11-02 15:41 | CASEMGMT ---
NATHALIA PETERSON called [facility] with referral and they are not able to accept the patient. Per hospitalist patient will need to be transfered. NATHALIA PETERSON to patient's room and his preference is [facility]. NATHALIA PETERSON updated hospitalist of choice. NAHTALIA PETERSON received message from patient's father Victor M. NATHALIA PETERSON called Victor M back and discussed transfer to another facility for plastics consult. NATHALIA PETERSON updated Victor M regarding [facility] declining patient. Victor M had no further questions or concerns at this time.
--- NOTE | 2022-11-02 17:22 | PCM.DC.SUM ---
Providers Date of Admission: 10/29/22 Primary Care Physician: Dr. Rebeca Stephenson MD Consultations 10/29/22 01:14 Consult: Infectious Disease Routine Consulting Provider: Luis Amador Reason for Consult: Recurrent UTI/?Pyelo EMERGENT Consult: No Notified: Yes Date Notified: 10/29/22 Time Notified: 00:09 Method of Notification: Text Consult: Service Center Assistant / Pulmonary Medicine Routine Consulting Provider: Laurent Bernal Reason for Consult: Sepsis, UTI/Pyel EMERGENT Consult: No Notified: Yes Date Notified: 10/29/22 Time Notified: 00:09 Method of Notification: Text Consult: Nephrology Routine Consulting Provider: Amarjit Estevez Reason for Consult: ESRD ON HD EMERGENT Consult: No Notified: Yes Date Notified: 10/29/22 Time Notified: 00:11 Method of Notification: Answering Service Consult: Onc/Wound/associate editor Routine Comment: Reason for Consult:: Would care and evaluation 11/02/22 08:07 Consult: Plastic Surgery Routine Consulting Provider: Nixon Davalos Reason for Consult: pressure ulcer R Ischial region EMERGENT Consult: No Notified: Yes Date Notified: 11/02/22 Time Notified: 08:44 Method of Notification: Text Reason For Visit: SEPSIS, UTI/PYELO Diagnosis Discharge Diagnosis (1) Sepsis: Status: Acute Code(s): A41.9 - Sepsis, unspecified organism (2) Bacteremia: Status: Acute Code(s): R78.81 - Bacteremia (3) UTI (urinary tract infection): Status: Acute Code(s): N39.0 - Urinary tract infection, site not specified (4) Hydronephrosis: Status: Acute Code(s): N13.30 - Unspecified hydronephrosis (5) Nephrolithiasis: Status: Acute Code(s): N20.0 - Calculus of kidney (6) Decubitus ulcer: Status: Acute Code(s): L89.90 - Pressure ulcer of unspecified site, unspecified stage Plan Sepsis-likely multifactorial -Suspect related to hip/ischium osteomyelitis/wound infection as well as complicated UTI -Sepsis has resolved -Plan to do stress dose steroids, midodrine and IV fluid resuscitation -Pressors required -New antibiotics as ordered -Appreciate infectious disease input Complicated UTI -Patient has nephrostomy tube on the right secondary to obstruction from renal calculi -Conversation with urology on 10/31/2022 and they indicated the patient was a high risk for treatment of his right kidney stones at this hospital and would defer to an outpatient at a different facility that was more tertiary in nature -Continue nephrostomy tubes currently placed -Urine culture shows Acinetobacter that is multidrug-resistant -Continue cefepime and linezolid per infectious disease recommendations Infected pressure ulcer/osteomyelitis -Polymicrobial -ID is amending further debridement and care with surgical consultation -Plastic surgery not available this week--> plan to transfer to tertiary center -Awaiting bed at [facility] -Continue broad-spectrum antibiotics as ordered by infectious disease MRSA bacteremia -Echocardiogram is unremarkable -Patient is unfortunately allergic to vancomycin -Currently on linezolid per infectious disease recommendations -Repeat blood cultures are pending for clearance Recent C. difficile and infection -Continue Flagyl p.o. -Patient with vancomycin allergy End-stage renal disease on HD -Nephrology is following and continue dialysis per nephrology recommendations Adrenal insufficiency -Wean hydrocortisone from 100 every 6 to 50 twice daily -Home hydrocortisone doses are 15 mg p.o. twice daily and 5 mg daily -Continue home midodrine GERD -Continue twice daily PPI Chronic anemia secondary to renal disease -Hemoglobin is stable Leukocytosis -Secondary to the above infections -White count is trending down Depression/insomnia -Continue home sertraline -Continue trial down -Continue home as needed Morbid obesity -BMI 41.7 -Complicates treatment, prognosis, outcomes -Recommend weight loss DVT prophylaxis -Continue heparin but increase to 3 times daily from twice daily dosing given morbid obesity CODE STATUS -Full code Medications at Discharge Home Medications acetaminophen 325 mg tablet 650 mg PO Q4H PRN PAIN/FEVER 09/17/22 acetaminophen 650 mg rectal suppository 650 mg WA Q4H PRN PAIN/FEVER 09/17/22 albuterol sulfate 2.5 mg/3 mL (0.083 %) solution for nebulization 2.5 mg inhalation Q4H PRN Shortness Of Breath 09/17/22 aluminum-magnesium hydroxide 225 mg-200 mg/5 mL oral suspension 30 ml PO Q4H PRN PRN GI DISTRESS 09/17/22 bisacodyl 10 mg rectal suppository 10 mg WA DAILY PRN Constipation 09/17/22 dextrose 40 % oral gel (Glucose Gel) 15 g PO Q15M PRN Hypoglycemia 09/17/22 ferrous sulfate 325 mg (65 mg iron) tablet 325 mg PO DAILY 09/17/22 gabapentin 100 mg capsule 100 mg PO DAILY 09/17/22 guaifenesin 200 mg/5 mL oral liquid 400 mg PO Q4H PRN Cough 09/17/22 guaifenesin 600 mg tablet, extended release 12 hr (Mucinex) 600 mg PO BID 09/17/22 heparin, porcine (PF) 5,000 unit/mL injection syringe 5,000 unit subcut Q8H 09/17/22 hydrocortisone 10 mg tablet 10 mg PO Q12H 09/17/22 hydrocortisone 5 mg tablet 5 mg PO DAILY 09/17/22 loperamide 2 mg tablet 2 mg PO Q6H PRN Diarrhea 09/17/22 magnesium hydroxide 400 mg/5 mL oral suspension (Milk of Magnesia) 400 mg PO DAILY PRN Constipation 09/17/22 melatonin 3 mg tablet 3 mg PO QHS PRN insomnia 09/17/22 midodrine 10 mg tablet 20 mg PO TID 09/17/22 pantoprazole 40 mg tablet,delayed release 40 mg PO BID 09/17/22 sertraline 25 mg tablet 25 mg PO DAILY 09/17/22 sodium hypochlorite 0.25 % solution (Dakin's Solution) 1 applic topical DAILY 09/17/22 sodium phosphates 19 gram-7 gram/118 mL enema (Fleet Enema) 118 ml WA DAILY PRN Constipation 09/17/22 trazodone 100 mg tablet 100 mg PO QHS 09/17/22 vitamin B complex-vitamin C-folic acid 0.8 mg tablet (Renal-Adal) 1 tab PO DAILY 09/17/22 levofloxacin 750 mg tablet 750 mg PO Q48H #5 tabs 09/19/22 Lactobacillus rhamnosus GG 10 billion cell capsule (Culturelle) 1 cap PO BID 10/28/22 digestive enzymes (Enzyme Digest capsule) 1 cap PO TID 10/28/22 metronidazole 500 mg tablet 500 mg PO TID 10/28/22 sevelamer carbonate 800 mg tablet (Renvela) 800 mg PO TID 10/28/22 simethicone 80 mg chewable tablet (Gas Relief (simethicone)) 80 mg PO BID PRN gi upset 10/28/22 Hospital Course Procedures 2-D Echocardiogram and - (CT of the chest abdomen pelvis/EKG) Summary of Care Provided Hospital Course: Mr. Hammond is a 27-year-old white male with a history of spina bifida and paraplegia who presented to the emergency department on 10/28/2022 with fever. Patient was recently diagnosed with C. difficile infection and was placed on oral Flagyl. Treatment was about 10 days in duration prior to presentation. He evidently had a hypotension on the day of presentation with systolic pressures in the 90s. His oxygen saturation also dropped to 85%. Family indicated on presentation that they have let his infections go too long before getting addressed and he ended up with sepsis previously. They were concerned about sepsis and brought him in. He had been living at [facility] with plans to be transition to home. Vital signs on presentation showed a blood pressure of 81/45 at the nicole but did respond to IV fluids and did not require pressors. His serum creatinine and BUN are elevated however the patient is on dialysis at baseline. His urine was consistent with infection and he has chronic nephrostomy tubes per Dr. Cohen. CTA of the chest was performed due to mild hypoxia and was suboptimal but no definitive evidence of PE was noted. A CT of the abdomen pelvis was performed and was concerning for bowel wall thickening in the ascending to transverse colon with some concern for incarceration however the patient was seen by general surgery and no concern for incarceration was identified per their examination. Patient did have a large decubitus wound over the right posterior ischium with findings concerning for osteomyelitis as well as a moderate right hip joint effusion. He was admitted to the ICU and placed on broad-spectrum antibiotics. Consultations to pulmonary/critical care medicine, infectious disease, and nephrology were placed. He has been maintained on cefepime, oral Flagyl, and linezolid during his hospitalization. Urine culture demonstrated Acinetobacter that has multidrug resistance, blood cultures show Staph aureus that is methicillin resistant, and wound cultures show Klebsiella pneumonia, Acinetobacter, and Staph aureus. Infectious disease felt that the patient should be further evaluated by plastic surgery given the appearance of his wound and suggestion of osteomyelitis. Unfortunately, plastic surgery is not available for evaluation and he is being transferred to [facility] where he has had previous surgeries. Is been on stress dose steroids 100 every 6 since admission for hypotension. These were weaned to 50 twice daily as his blood pressure was trending up and he no longer needed stress dose steroids on 11/02/2022. I would recommend a fast taper of his Solu-Medrol with daily reduction as long as he is hemodynamically stable and transition back to his oral zone. He was receiving dialysis on 11/02/2022. A bed became available at [facility] on 11/02/2022 and he was excepted for transfer to [facility]. He was discharged to tertiary center in stable condition. Discharge diagnoses/plan: Sepsis-likely multifactorial -Suspect related to hip/ischium osteomyelitis/wound infection as well as complicated UTI -Sepsis has resolved -Plan to do stress dose steroids, midodrine and IV fluid resuscitation -Pressors required -New antibiotics as ordered -Appreciate infectious disease input Complicated UTI -Patient has nephrostomy tube on the right secondary to obstruction from renal calculi -Conversation with urology on 10/31/2022 and they indicated the patient was a high risk for treatment of his right kidney stones at this hospital and would defer to an outpatient at a different facility that was more tertiary in nature -Continue nephrostomy tubes currently placed -Urine culture shows Acinetobacter that is multidrug-resistant -Continue cefepime and linezolid per infectious disease recommendations Infected pressure ulcer/osteomyelitis -Polymicrobial -ID is amending further debridement and care with surgical consultation -Plastic surgery not available this week--> plan to transfer to tertiary center -Awaiting bed at [facility] in [place] -Continue broad-spectrum antibiotics as ordered by infectious disease MRSA bacteremia -Echocardiogram is unremarkable -Patient is unfortunately allergic to vancomycin -Currently on linezolid per infectious disease recommendations -Repeat blood cultures are pending for clearance Recent C. difficile and infection -Continue Flagyl p.o. -Patient with vancomycin allergy End-stage renal disease on HD -Nephrology is following and continue dialysis per nephrology recommendations Adrenal insufficiency -Wean hydrocortisone from 100 every 6 to 50 twice daily -Home hydrocortisone doses are 15 mg p.o. twice daily and 5 mg daily -Continue home midodrine GERD -Continue twice daily PPI Chronic anemia secondary to renal disease -Hemoglobin is stable Leukocytosis -Secondary to the above infections -White count is trending down Depression/insomnia -Continue home sertraline -Continue trial down -Continue home as needed Morbid obesity -BMI 41.7 -Complicates treatment, prognosis, outcomes -Recommend weight loss DVT prophylaxis -Continue heparin but increase to 3 times daily from twice daily dosing given morbid obesity CODE STATUS -Full code Physical Exam Const alert, oriented x3, no apparent distress and well nourished Constitutional Narrative: Young, white male, sitting up in bed, morbidly obese, appears comfortable and nontoxic, nursing at bedside General Appearance: cooperative, well kempt and well developed Orientation / Consciousness: awake, oriented to person, oriented to place and oriented to time HEENT normocephalic, head/scalp atraumatic and moist oral mucous membranes Eyes PERRL, EOMs intact bilaterally and conjunctivae normal Neck supple, no JVD, thyroid normal and no carotid bruits General: trachea midline Resp normal respiratory effort, no retractions, no use of accessory muscles and clear to auscultation bilaterally Auscultation: Negative for rales, rhonchi or wheezes Cardio regular rate, regular rhythm, S1 normal heart sound, S2 normal heart sound, no murmurs, no rub, no gallops and no clicks GI normal to inspection, nondistended, normoactive bowel sounds, soft to palpation, non-tender and non-distended GI Narrative: Right lower quadrant nephrostomy tube in place draining pale yellow urine Extremity no clubbing, cyanosis or edema Extremity Narrative: No clubbing cyanosis or edema, bilateral lower extremities with significantly decreased muscle mass in size reduction due to history of spina bifida Skin no rashes or lesions noted General Skin Exam: no breakdown Neuro oriented x3, CN's II-XII intact bilaterally, no focal motor deficits and no sensory deficits noted Neuro Narrative: Decreased movement in bilateral lower extremities, bilateral upper extremities with normal range of motion and intact Sensorium / Orientation: awake, alert, oriented to person, oriented to place and oriented to time Speech: speech normal Psych affect normal Psych Narrative: Very pleasant, appropriately interactive Weight / BMI Weight Weight: 103.5 kg Body Mass Index (BMI) 41.7 ABG / Lab / Microbiology Data 11/02/22 08:29 11/02/22 08:29 Laboratory: Laboratory Results - last 24 hr 11/02/22 08:29: WBC 12.1 H, RBC 4.01 L, Hgb 10.5 L, Hct 34.9 L, MCV 87.0, MCH 26.2 L, MCHC 30.1 L, RDW Std Deviation 55.1 H, RDW Coeff of Francisco 17.5 H, Plt Count 659 H, MPV 9.6, Immature Gran % (Auto) 0.700, Neut % (Auto) 88.6 H, Lymph % (Auto) 7.9 L, [place] % (Auto) 2.7, Eos % (Auto) 0.0, Baso % (Auto) 0.1, Absolute Neuts (auto) 10.7 H, Absolute Lymphs (auto) 0.95, Nucleated RBC % 0, Sodium 137, Potassium 4.6, Chloride 105, Carbon Dioxide 21.0, Anion Gap 11, BUN 103 H*, Creatinine 4.98 H, Estim Creat Clear Calc 16.90, Est GFR (MDRD) Af Amer 18 L, Est GFR (MDRD) Non-Af 15 L, BUN/Creatinine Ratio 20.7 H, Glucose 127 H, Calcium 9.0 Microbiology: Microbiology 10/30/22 09:00 Wound - Ischium Gram Stain - Final 10/30/22 09:00 Wound - Ischium Wound Culture - Final Klebsiella pneumoniae sp pneum Acinetobacter baumannii Staphylococcus aureus 10/30/22 09:00 Wound - Ischium Anaerobic Culture - Final No anaerobic bacteria isolated. 10/31/22 06:11 Blood Culture (Wb) - Right Forearm Blood Culture - Preliminary No growth in 48 hours. 10/30/22 08:00 Blood Culture (Wb) - Right Wrist Blood Culture - Preliminary Staphylococcus aureus 10/28/22 20:00 Blood Culture (Wb) - Anticubital Right Blood Culture - Final Staphylococcus aureus 10/28/22 21:17 Blood Culture (Wb) - Anticubital Right Bacteria Detection (PCR) - Final Staphylococcus aureus 10/28/22 21:17 Blood Culture (Wb) - Anticubital Right Blood Culture - Final Meth. resistant Staph. aureus 10/28/22 20:36 Urine Catheter - Catheter Urine Culture - Preliminary Acinetobacter baumannii 10/28/22 20:36 Stool C. difficile GDH Antigen & Toxins - Final 10/28/22 20:36 Stool C. difficile DNA Amplification - Final D/C Instructions Discharge Diet: Low fat / Low cholesterol and Renal Diet Meaningful Use Info Meaningful Use Diagnoses (Choose all that apply): None applicable Discharge Plan Admission Admit Date/Time: 10/29/22 00:07 Primary Reason for Your Visit: Fever Attending Provider: Deisy Murcia Primary Care Provider: Gudla,Rebeca Consulting Providers: Maureen Ferguson; Luis Amador; Laurent Bernal; Amarjit Estevez; Cameron Mclean; Nixon Davalos Discharge Orders/Prescriptions Prescriptions: No Action hydrocortisone 5 mg Tablet 5 mg PO DAILY Hold Instructions: Resume on 09/23/22. Rx Instructions: MORNING WITH 10MNG TABLET acetaminophen 325 mg Tablet 650 mg PO Q4H PRN (Reason: PAIN/FEVER) acetaminophen 650 mg Suppository 650 mg WA Q4H PRN (Reason: PAIN/FEVER) albuterol sulfate 2.5 mg /3 mL (0.083 %) Solution For Nebulization 2.5 mg INHALATION Q4H PRN (Reason: Shortness Of Breath) dextrose [Glucose Gel] 40 % Gel 15 g PO Q15M PRN (Reason: Hypoglycemia) Rx Instructions: until symptoms of low blood sugar are controlled loperamide 2 mg Tablet 2 mg PO Q6H PRN (Reason: Diarrhea) melatonin 3 mg Tablet 3 mg PO QHS PRN (Reason: insomnia) magnesium hydroxide [Milk of Magnesia] 400 mg/5 mL Suspension 400 mg PO DAILY PRN (Reason: Constipation) trazodone 100 mg Tablet 100 mg PO QHS bisacodyl 10 mg Suppository 10 mg WA DAILY PRN (Reason: Constipation) pantoprazole 40 mg Tablet,Delayed Release (Dr/Ec) 40 mg PO BID ferrous sulfate 325 mg (65 mg iron) Tablet 325 mg PO DAILY aluminum-magnesium hydroxide 225-200 mg/5 mL Suspension 30 ml PO Q4H PRN PRN (Reason: GI DISTRESS) Fleet Enema 19-7 gram/118 mL Enema 118 ml WA DAILY PRN (Reason: Constipation) sertraline 25 mg Tablet 25 mg PO DAILY Renal-Adal 0.8 mg Tablet 1 tab PO DAILY gabapentin 100 mg Capsule 100 mg PO DAILY hydrocortisone 10 mg Tablet 10 mg PO Q12H Hold Instructions: Resume on 09/23/22. Dakin's Solution 0.25 % Solution 1 applic TOPICAL DAILY midodrine 10 mg Tablet 20 mg PO TID Rx Instructions: do not give last dose of day after 6PM or within 4 hrs of bedtime guaifenesin 200 mg/5 mL Liquid 400 mg PO Q4H PRN (Reason: Cough) heparin, porcine (PF) 5,000 unit/mL Syringe 5,000 unit SUBCUT Q8H guaifenesin [Mucinex] 600 mg Tablet Extended Release 12hr 600 mg PO BID levofloxacin 750 mg tablet 750 mg PO Q48H Qty: 5 0RF Rx Instructions: start 09/21/2022 metronidazole 500 mg tablet 500 mg PO TID Patient Comments: complete 11/04/22 Culturelle 10 billion cell capsule 1 cap PO BID Rx Instructions: x2 weeks end 11/07/22 Enzyme Digest Capsule 1 cap PO TID Rx Instructions: administer with food; swallow whole; do not crush/chew/dissolve/break/cut sevelamer carbonate [Renvela] 800 mg tablet 800 mg PO TID Rx Instructions: must administer with a meal/food simethicone [Gas Relief (simethicone)] 80 mg tablet,chewable 80 mg PO BID PRN (Reason: gi upset) Referrals / Follow Up: Rebeca Stephenson MD [Primary Care Provider] - Within 2 Weeks Disposition Disposition (needs filled in before D/C Order can be placed): Acute Care Hospital Charges/Coding Visit Charges Inpatient E&M: 53654 Disch Hosp >30min
--- NOTE | 2022-11-02 17:47 | NURSING ---
This RN informed Dr. Ingrid Murcia that patient blood pressure has been trending up during last hour of dialysis. Ultrafiltration goal for dialysis increased, but lungs are clear with no edema & increased fluid removal had no impact. Dr. Murcia stated to notify her if HTN remains unchanged. This RN contacted the community health promoter to notify Dr. Murcia
--- NOTE | 2022-11-02 19:17 | PN.RENAL_ITS ---
Subjective Subjective Following for ESRD. The patient seen during hemodialysis treatment. He denies chest pain, shortness of breath, or nausea. Objective Data Objective Data Vital Signs: Vital Signs Temp Pulse Resp BP Pulse Ox O2 Del Method O2 Flow Rate 97.9 F 59 L 18 159/102 H 98 Room Air 2 11/02/22 18:28 11/02/22 18:28 11/02/22 18:28 11/02/22 18:28 11/02/22 18:28 11/02/22 18:28 10/30/22 19:47 FiO2 30 11/02/22 02:40 Oxygen Flow Rate (L/min) 2 Oxygen Delivery Method Room Air Weight: 102 kg Body Mass Index (BMI) 41.3 Intake & Output: Intake and Output for Last 24 Hours 10/31/22 11/01/22 11/02/22 23:59 23:59 23:59 Intake Total 890 / 890 650 / 650 970 / 970 Output Total 100 / 100 125 / 190 2595 / 2595 Balance 790 / 790 525 / 460 -1625 / -1625 Lab / Micro Data 11/02/22 08:29 11/02/22 08:29 Labs: Laboratory Results - last 24 hr 11/02/22 08:29: WBC 12.1 H, RBC 4.01 L, Hgb 10.5 L, Hct 34.9 L, MCV 87.0, MCH 26.2 L, MCHC 30.1 L, RDW Std Deviation 55.1 H, RDW Coeff of Francisco 17.5 H, Plt Count 659 H, MPV 9.6, Immature Gran % (Auto) 0.700, Neut % (Auto) 88.6 H, Lymph % (Auto) 7.9 L, [place] % (Auto) 2.7, Eos % (Auto) 0.0, Baso % (Auto) 0.1, Absolute Neuts (auto) 10.7 H, Absolute Lymphs (auto) 0.95, Nucleated RBC % 0, Sodium 137, Potassium 4.6, Chloride 105, Carbon Dioxide 21.0, Anion Gap 11, BUN 103 H*, Creatinine 4.98 H, Estim Creat Clear Calc 16.90, Est GFR (MDRD) Af Amer 18 L, Est GFR (MDRD) Non-Af 15 L, BUN/Creatinine Ratio 20.7 H, Glucose 127 H, Calcium 9.0 Micro: Microbiology 10/30/22 09:00 Wound - Ischium Gram Stain - Final 10/30/22 09:00 Wound - Ischium Wound Culture - Final Klebsiella pneumoniae sp pneum Acinetobacter baumannii Staphylococcus aureus 10/30/22 09:00 Wound - Ischium Anaerobic Culture - Final No anaerobic bacteria isolated. 10/31/22 06:11 Blood Culture (Wb) - Right Forearm Blood Culture - Preliminary No growth in 48 hours. 10/30/22 08:00 Blood Culture (Wb) - Right Wrist Blood Culture - Preliminary Staphylococcus aureus 10/28/22 20:00 Blood Culture (Wb) - Anticubital Right Blood Culture - Final Staphylococcus aureus 10/28/22 21:17 Blood Culture (Wb) - Anticubital Right Bacteria Detection (PCR) - Final Staphylococcus aureus 10/28/22 21:17 Blood Culture (Wb) - Anticubital Right Blood Culture - Final Meth. resistant Staph. aureus 10/28/22 20:36 Urine Catheter - Catheter Urine Culture - Preliminary Acinetobacter baumannii 10/28/22 20:36 Stool C. difficile GDH Antigen & Toxins - Final 10/28/22 20:36 Stool C. difficile DNA Amplification - Final Physical Exam Narrative Alert oriented x3, no apparent distress S1, S2, RRR Lung sounds clear anteriorly and posteriorly. No wheezes, rhonchi rales noted No edema Right chest tunneled HD catheter dressing clean, dry and intact Left forearm AV fistula positive thrill and bruit noted, however, the real is only good at around arterial anastomosis at the wrist Assessment & Plan Assessment/Plan (1) ESRD (end stage renal disease): (2) Bacteremia: (3) Decubitus ulcer: (4) UTI (urinary tract infection): (5) Hypotension: PLAN: Plan This is a pleasant 27-year-old male with past medical history significant for ESRD on hemodialysis who was brought to the emergency room for evaluation of fever and fatigue. Admitted for bacteremia. Nephrology consulted for hemodialysis needs. Patient currently dialyzes at [facility] on a Wednesday, Wednesday, , Wednesday schedule; however patient was due to be discharged from intermediate to home this weekend. His outpatient hemodialysis schedule is arranged at [facility] on a Wednesday, , Wednesday schedule. However, discharge plan is up in the air at this point because of his current infection. We will keep the patient on MWF schedule for now. I saw the patient to hemodialysis today and he is tolerating treatment well. Patient currently has tunneled hemodialysis catheter that is being used for dialysis. The patient has left lower arm AV fistula that was created in June. It does not look like it is ready to be used and likely need further work. Per patient report this was created in June however he has not been able to follow-up with vascular due to conflict in schedule and hospitalizations. ID consulted. Blood cultures showing MSSA. Suspected source is deep right hip/ischial wound and possible osteo was seen on CT from 10/28. He is to be transferred to [facility] today for tertiary care and for plastic surgery needed.
[2022-11-02] MEDS: Hydrocortisone Sod Succinate 100 MG/2 ML Vial 50 MG IV (21:55)
== END 2022-11-02 23:50 | disposition short-term general hospital (02) | DRG 698 ==
LOC: ED 20:48 → ICU 10-29 01:10 → PCU 10-29 18:03
PROVIDERS: Internal Medicine; Admitting Provider Family Medicine; Emergency Provider Emergency Medicine; PCP Internal Medicine; Visit Provider Internal Medicine
DX: T83.511A Infection and inflammatory reaction due to indwelling urethral catheter, initial encounter (principal); A41.01 Sepsis due to Methicillin susceptible Staphylococcus aureus; N18.6 End stage renal disease; I31.39 Other pericardial effusion (noninflammatory); A04.72 Enterocolitis due to Clostridium difficile, not specified as recurrent; I13.2 Hypertensive heart and chronic kidney disease with heart failure and with stage 5 chronic kidney disease, or end stage renal disease; G82.20 Paraplegia, unspecified; E87.20 Acidosis, unspecified; E27.40 Unspecified adrenocortical insufficiency; Z68.41 Body mass index [BMI] 40.0-44.9, adult; I50.42 Chronic combined systolic (congestive) and diastolic (congestive) heart failure; M86.9 Osteomyelitis, unspecified; N10 Acute pyelonephritis; N13.6 Pyonephrosis; Z16.39 Resistance to other specified antimicrobial drug; L89.139 Pressure ulcer of right lower back, unspecified stage; I95.89 Other hypotension; L89.159 Pressure ulcer of sacral region, unspecified stage; I27.29 Other secondary pulmonary hypertension; I50.812 Chronic right heart failure; Q05.9 Spina bifida, unspecified; E66.01 Morbid (severe) obesity due to excess calories; Z99.2 Dependence on renal dialysis; T83.512A Infection and inflammatory reaction due to nephrostomy catheter, initial encounter; D63.8 Anemia in other chronic diseases classified elsewhere; D63.1 Anemia in chronic kidney disease; K40.90 Unilateral inguinal hernia, without obstruction or gangrene, not specified as recurrent; K52.9 Noninfective gastroenteritis and colitis, unspecified; D50.9 Iron deficiency anemia, unspecified; K21.9 Gastro-esophageal reflux disease without esophagitis; L89.319 Pressure ulcer of right buttock, unspecified stage; G47.33 Obstructive sleep apnea (adult) (pediatric); L89.219 Pressure ulcer of right hip, unspecified stage; Z79.01 Long term (current) use of anticoagulants; Z98.2 Presence of cerebrospinal fluid drainage device; R09.02 Hypoxemia; R16.0 Hepatomegaly, not elsewhere classified; G47.00 Insomnia, unspecified; B96.1 Klebsiella pneumoniae [K. pneumoniae] as the cause of diseases classified elsewhere; Z79.2 Long term (current) use of antibiotics
CPT/HCPCS: 36415; 71275; 74177; 80048; 80053; 81001; 83605; 85025; 85610; 85652; 85730; 86140; 87040; 87070; 87075; 87077; 87086; 87088; 87149; 87186; 87205; 87493; 90937; 93005; 93306; 94002; 94003; 94668; 94762; 97161; 97166; 99285; J7030; J7040; J7050; Q9957; Q9967; A4216; C8929; G0257

== ENCOUNTER 2022-11-27 17:53 | Emergency (ER) | payer MEDICARE, MEDICAID, SELFPAY ==
[2022-11-27 17:54] VITALS: BP 143/96; PULSE 90; RESP 17; TEMP 36.2; O2SAT 98
--- NOTE | 2022-11-27 19:47 | EX.ED.GENINJ ---
HPI <LEXX Loo - Last Filed: 11/27/22 21:00> History of Present Illness Chief Complaint: Laceration Narrative Narrative: Patient presenting today with a laceration to his right anterior lower leg that he got earlier this evening from his jessy lift strap catching against a skin tear on his right leg and tearing it even further. His tetanus is up-to-date. He denies any other injury. He is on heparin for DVT prevention. 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, stage 3 Pressure ulcer Right-sided heart failure Secondary pulmonary arterial hypertension Spina bifida Systolic CHF Umbilical hernia Home Medications acetaminophen 325 mg tablet 650 mg PO Q4H PRN PAIN/FEVER 09/17/22 [History Last Taken Unknown] acetaminophen 650 mg rectal suppository 650 mg SC Q4H PRN PAIN/FEVER 09/17/22 [History Last Taken Unknown] albuterol sulfate 2.5 mg/3 mL (0.083 %) solution for nebulization 2.5 mg inhalation Q4H PRN Shortness Of Breath 09/17/22 [History Last Taken Unknown] aluminum-magnesium hydroxide 225 mg-200 mg/5 mL oral suspension 30 ml PO Q4H PRN PRN GI DISTRESS 09/17/22 [History Last Taken Unknown] bisacodyl 10 mg rectal suppository 10 mg SC DAILY PRN Constipation 09/17/22 [History Last Taken Unknown] dextrose 40 % oral gel (Glucose Gel) 15 g PO Q15M PRN Hypoglycemia 09/17/22 [History Last Taken Unknown] ferrous sulfate 325 mg (65 mg iron) tablet 325 mg PO DAILY 09/17/22 [History Last Taken Unknown] gabapentin 100 mg capsule 100 mg PO DAILY 09/17/22 [History Last Taken Unknown] guaifenesin 200 mg/5 mL oral liquid 400 mg PO Q4H PRN Cough 09/17/22 [History Last Taken Unknown] guaifenesin 600 mg tablet, extended release 12 hr (Mucinex) 600 mg PO BID 09/17/22 [History Last Taken Unknown] heparin, porcine (PF) 5,000 unit/mL injection syringe 5,000 unit subcut Q8H 09/17/22 [History Last Taken Unknown] hydrocortisone 10 mg tablet 10 mg PO Q12H 09/17/22 [History Last Taken Unknown] hydrocortisone 5 mg tablet 5 mg PO DAILY 09/17/22 [History Last Taken Unknown] loperamide 2 mg tablet 2 mg PO Q6H PRN Diarrhea 09/17/22 [History Last Taken Unknown] magnesium hydroxide 400 mg/5 mL oral suspension (Milk of Magnesia) 400 mg PO DAILY PRN Constipation 09/17/22 [History Last Taken Unknown] melatonin 3 mg tablet 3 mg PO QHS PRN insomnia 09/17/22 [History Last Taken Unknown] midodrine 10 mg tablet 20 mg PO TID 09/17/22 [History Last Taken Unknown] pantoprazole 40 mg tablet,delayed release 40 mg PO BID 09/17/22 [History Last Taken Unknown] sertraline 25 mg tablet 25 mg PO DAILY 09/17/22 [History Last Taken Unknown] sodium hypochlorite 0.25 % solution (Dakin's Solution) 1 applic topical DAILY 09/17/22 [History Last Taken Unknown] sodium phosphates 19 gram-7 gram/118 mL enema (Fleet Enema) 118 ml SC DAILY PRN Constipation 09/17/22 [History Last Taken Unknown] trazodone 100 mg tablet 100 mg PO QHS 09/17/22 [History Last Taken Unknown] vitamin B complex-vitamin C-folic acid 0.8 mg tablet (Renal-Adal) 1 tab PO DAILY 09/17/22 [History Last Taken Unknown] levofloxacin 750 mg tablet 750 mg PO Q48H #5 tabs 09/19/22 [Rx Last Taken Unknown] Lactobacillus rhamnosus GG 10 billion cell capsule (Culturelle) 1 cap PO BID 10/28/22 [History Last Taken Unknown] digestive enzymes (Enzyme Digest capsule) 1 cap PO TID 10/28/22 [History Last Taken Unknown] metronidazole 500 mg tablet 500 mg PO TID 10/28/22 [History Last Taken Unknown] sevelamer carbonate 800 mg tablet (Renvela) 800 mg PO TID 10/28/22 [History Last Taken Unknown] simethicone 80 mg chewable tablet (Gas Relief (simethicone)) 80 mg PO BID PRN gi upset 10/28/22 [History Last Taken Unknown] Allergy/AdvReac Type Severity Reaction Status Date / Time ampicillin Allergy rash Verified 11/27/22 17:54 daptomycin Allergy Hives Verified 11/27/22 17:54 fentanyl Allergy Rash Verified 11/27/22 17:54 latex Allergy Hives Verified 11/27/22 17:54 meropenem Allergy rash Verified 11/27/22 17:54 morphine Allergy Hives Verified 11/27/22 17:54 sulbactam [From Unasyn] Allergy Hives Verified 11/27/22 17:54 vancomycin Allergy Hives Verified 11/27/22 17:54 Family History Grandfather Heart disease Father Hypertension Mother Hyperlipidemia Surgical History History of back surgery History of foot surgery History of kidney surgery History of ventriculoperitoneal shunting S/P cutaneous-vesicostomy S/P ureteral stent placement Status post laser lithotripsy of ureteral calculus Social History household members: family Smoking Status: Never smoker second hand exposure: Yes alcohol intake: never substance use type: does not use ROS <LEXX Loo - Last Filed: 11/27/22 21:00> ROS ED Constitutional Constitutional ED: Denies chills, fever(s) or sweats Eyes Eyes: Denies blurry vision Cardiovascular Cardiovascular: Denies chest pain Respiratory/Chest Respiratory/Chest: Denies cough or dyspnea Gastrointestinal Gastrointestinal: Denies abdominal pain, nausea or vomiting Musculoskeletal Musculoskeletal: Denies arthralgias or myalgias Integumentary Reports laceration Neurologic Neurologic: Denies confusion, dizziness or paresthesias EXAM <LEXX Loo - Last Filed: 11/27/22 21:00> Physical Exam Const Vital Signs: 11/27/22 17:54 11/27/22 21:12 Temperature 97.1 F L Temperature Source Temporal Pulse Rate 90 79 Respiratory Rate 17 16 Blood Pressure 143/96 H 145/67 H Blood Pressure Mean 111 Pulse Ox 98 98 Oxygen Delivery Method Room Air Positive well nourished, well developed and no apparent distress General Appearance ED: well developed HEENT Reports normocephalic and head/scalp atraumatic Mouth ED: Yes moist mucous membranes normal Eyes PERRL and EOMs intact bilaterally Neck full ROM and supple Chest Wall inspection of chest normal Resp normal respiratory effort and clear to auscultation bilaterally Cardio regular rate and regular rhythm GI soft to palpation, non-tender, non-distended and no masses Back/Spine normal ROM and normal to inspection Extremity normal to inspection and full ROM Extremity Narrative: 5 cm linear laceration to the right anterior lower leg. Neuro oriented x3, CN's II-XII intact bilaterally, moves all extremities, no focal motor deficits and no sensory deficits noted Sensorium / Orientation: awake and alert Psych mental status grossly normal and thought process normal Skin no rashes or lesions noted and no wounds <Dr. Eugenio Mayorga MD - Last Filed: 11/27/22 23:34> Physical Exam Const Vital Signs: 11/27/22 17:54 11/27/22 21:12 Temperature 97.1 F L Temperature Source Temporal Pulse Rate 90 79 Respiratory Rate 17 16 Blood Pressure 143/96 H 145/67 H Blood Pressure Mean 111 Pulse Ox 98 98 Oxygen Delivery Method Room Air PROC <LEXX Loo - Last Filed: 11/27/22 21:00> Procedures Lacerations laceration: Length: 1.97 in Depth: Sub Q Shape: Linear Prep: Chlorhexadine Laceration repair: Irrigated and Lidocaine with epi Number of Sutures/Empire: 11 Suture Information: Ethilon (5-0) and Simple MDM <LEXX Loo - Last Filed: 11/27/22 21:00> MDM MDM Narrative Medical decision making narrative: Patient presenting today with a linear laceration to his right anterior lower leg from a Jessy strap that caught a skin tear that was already existing in that area and teared it even further. It is about 5 cm in length and will need sutured. Tetanus is up-to-date. See procedure note. Patient tolerated procedure well. Wound was then wrapped with bacitracin ointment and a bandage. He has been educated on signs of infection to look out for and reasons to return. He is to have sutures removed in 10 to 14 days. He will be discharged home in stable condition and is comfortable plan. Mom is comfortable with plan <Dr. Eugenio Mayorga MD - Last Filed: 11/27/22 23:34> [facility] Narrative Medical decision making narrative: Patient presenting today with a linear laceration to his right anterior lower leg from a Jessy strap that caught a skin tear that was already existing in that area and teared it even further. It is about 5 cm in length and will need sutured. Tetanus is up-to-date. See procedure note. Patient tolerated procedure well. Wound was then wrapped with bacitracin ointment and a bandage. He has been educated on signs of infection to look out for and reasons to return. He is to have sutures removed in 10 to 14 days. He will be discharged home in stable condition and is comfortable plan. Mom is comfortable with plan Patient seen and evaluated with BASIL. I personally interviewed and examined the patient. I was involved in all aspects of patient's orders, interpretation of results, and treatment. Patient sustained laceration anterior right leg. Patient has a laceration anterior left leg. No active bleeding. There is no Novast compromise. The wound was repaired by the physician melrude under my guidance and supervision. Discharge Plan Triage Chief Complaint: Laceration ED Midlevel Provider: Sherice Conteh ED Provider: Eugenio Mayorga Dx/Rx/DC Orders Clinical Impression: Laceration Instructions: ED Laceration: All Closures Prescriptions: No Action hydrocortisone 5 mg Tablet 5 mg PO DAILY Hold Instructions: Resume on 09/23/22. Rx Instructions: MORNING WITH 10MNG TABLET acetaminophen 325 mg Tablet 650 mg PO Q4H PRN (Reason: PAIN/FEVER) acetaminophen 650 mg Suppository 650 mg SC Q4H PRN (Reason: PAIN/FEVER) albuterol sulfate 2.5 mg /3 mL (0.083 %) Solution For Nebulization 2.5 mg INHALATION Q4H PRN (Reason: Shortness Of Breath) dextrose [Glucose Gel] 40 % Gel 15 g PO Q15M PRN (Reason: Hypoglycemia) Rx Instructions: until symptoms of low blood sugar are controlled loperamide 2 mg Tablet 2 mg PO Q6H PRN (Reason: Diarrhea) melatonin 3 mg Tablet 3 mg PO QHS PRN (Reason: insomnia) magnesium hydroxide [Milk of Magnesia] 400 mg/5 mL Suspension 400 mg PO DAILY PRN (Reason: Constipation) trazodone 100 mg Tablet 100 mg PO QHS bisacodyl 10 mg Suppository 10 mg SC DAILY PRN (Reason: Constipation) pantoprazole 40 mg Tablet,Delayed Release (Dr/Ec) 40 mg PO BID ferrous sulfate 325 mg (65 mg iron) Tablet 325 mg PO DAILY aluminum-magnesium hydroxide 225-200 mg/5 mL Suspension 30 ml PO Q4H PRN PRN (Reason: GI DISTRESS) Fleet Enema 19-7 gram/118 mL Enema 118 ml SC DAILY PRN (Reason: Constipation) sertraline 25 mg Tablet 25 mg PO DAILY Renal-Adal 0.8 mg Tablet 1 tab PO DAILY gabapentin 100 mg Capsule 100 mg PO DAILY hydrocortisone 10 mg Tablet 10 mg PO Q12H Hold Instructions: Resume on 09/23/22. Dakin's Solution 0.25 % Solution 1 applic TOPICAL DAILY midodrine 10 mg Tablet 20 mg PO TID Rx Instructions: do not give last dose of day after 6PM or within 4 hrs of bedtime guaifenesin 200 mg/5 mL Liquid 400 mg PO Q4H PRN (Reason: Cough) heparin, porcine (PF) 5,000 unit/mL Syringe 5,000 unit SUBCUT Q8H guaifenesin [Mucinex] 600 mg Tablet Extended Release 12hr 600 mg PO BID levofloxacin 750 mg tablet 750 mg PO Q48H Qty: 5 0RF Rx Instructions: start 09/21/2022 metronidazole 500 mg tablet 500 mg PO TID Patient Comments: complete 11/04/22 Culturelle 10 billion cell capsule 1 cap PO BID Rx Instructions: x2 weeks end 11/07/22 Enzyme Digest Capsule 1 cap PO TID Rx Instructions: administer with food; swallow whole; do not crush/chew/dissolve/break/cut sevelamer carbonate [Renvela] 800 mg tablet 800 mg PO TID Rx Instructions: must administer with a meal/food simethicone [Gas Relief (simethicone)] 80 mg tablet,chewable 80 mg PO BID PRN (Reason: gi upset) Primary Care Provider: Cameron Romero Referrals: Cameron Romero DO [Primary Care Provider] - 10 Day for suture removal Activity Restrictions/Additional Instructions: Please follow-up to have the sutures removed in 10 to 14 days. Follow-up with your PCP. Please follow-up sooner for any signs of infection. Clean the area daily with mild soap and water and wrapped with a bandage and antibiotic ointment. Disposition Disposition: Home, Self Care Discharge Date/Time: 11/27/22 21:14
[2022-11-27] MEDS: Lidocaine 1% /Epi 1:100 (20ml) 20 ML Vial 10 ML INFILT (20:00)
[2022-11-27 21:12] VITALS: BP 145/67; PULSE 79; RESP 16; O2SAT 98
== END 2022-11-27 21:14 | disposition home or self-care (01) ==
PROVIDERS: Emergency Provider Emergency Medicine; PCP Family Medicine; Visit Provider Emergency Medicine
DX: S81.812A Laceration without foreign body, left lower leg, initial encounter (principal); I13.2 Hypertensive heart and chronic kidney disease with heart failure and with stage 5 chronic kidney disease, or end stage renal disease; I50.22 Chronic systolic (congestive) heart failure; N18.6 End stage renal disease; Z79.899 Other long term (current) drug therapy; Z79.01 Long term (current) use of anticoagulants; W31.89XA Contact with other specified machinery, initial encounter
CPT/HCPCS: 12002; 99284

== ENCOUNTER 2022-12-15 16:10 | Outpatient (RCR) | payer MEDICARE, MEDICAID, SELFPAY ==
[2022-12-15 16:37] LABS: Absolute Lymphocyte Count 1.77 X10^3/uL (0.83-4.51); Absolute Neutrophil Count 11.7 X10^3/uL (2.0-7.7); Basophil# 0.14 X10^3/uL; Basophil% 0.9 % (0-1); Eosinophil# 0.47 X10^3/uL; Hematocrit 33.6 % (40-54); Hemoglobin 9.9 g/dL (13.0-16.5); Lymphocyte # 1.77 X10^3/ul (0.83-4.51); Lymphocyte % 11.5 % (19-41); Mean Corp Hgb Conc 29.5 g/dL (32-36); Mean Corpuscular Hgb 26.9 pg (27.0-32.0); Mean Corpuscular Volume 91.3 fL (80-94); Monocyte# 1.08 X10^3/uL; NRBC Flagged by Analyzer 0 % (0-5); Neutrophil # 11.72 X10^3/uL (2.7-7.7); Neutrophil % 75.9 % (47-70); Platelet Count 533 K/mm3 (150-450); RBC Distribution Width CV 18.3 % (11.6-14.6); RBC Distribution Width SD 59.5 fl (35.1-43.9); Red Blood Count 3.68 M/mm3 (4.6-6.2); White Blood Count 15.4 K/mm3 (4.4-11.0)
== END 2022-12-31 23:59 ==
LOC: LABSPEC 16:10
PROVIDERS: PCP Family Medicine; Referring Provider Family Medicine; Visit Provider Family Medicine
DX: D64.9 Anemia, unspecified (principal)
CPT/HCPCS: 85025

== ENCOUNTER 2023-01-19 13:46 | Outpatient (RCR) | payer MEDICARE, MEDICAID, SELFPAY ==
[2023-01-19 15:05] LABS: Absolute Lymphocyte Count 1.67 X10^3/uL (0.83-4.51); Absolute Neutrophil Count 9.5 X10^3/uL (2.0-7.7); Basophil# 0.15 X10^3/uL; Basophil% 1.2 % (0-1); Eosinophil# 0.53 X10^3/uL; Eosinophils% 4.1 % (0-5); Hematocrit 38.1 % (40-54); Hemoglobin 10.9 g/dL (13.0-16.5); Lymphocyte # 1.67 X10^3/ul (0.83-4.51); Mean Corp Hgb Conc 28.6 g/dL (32-36); Mean Corpuscular Hgb 26.4 pg (27.0-32.0); Mean Corpuscular Volume 92.3 fL (80-94); NRBC Flagged by Analyzer 0 % (0-5); Neutrophil % 74.1 % (47-70); Platelet Count 457 K/mm3 (150-450); RBC Distribution Width CV 17.9 % (11.6-14.6); RBC Distribution Width SD 58.6 fl (35.1-43.9); Red Blood Count 4.13 M/mm3 (4.6-6.2); White Blood Count 12.8 K/mm3 (4.4-11.0)
== END 2023-01-30 23:59 ==
LOC: LABSPEC 13:46
PROVIDERS: PCP Family Medicine; Referring Provider Family Medicine; Visit Provider Family Medicine
DX: D64.9 Anemia, unspecified (principal)
CPT/HCPCS: 36415; 85025

== ENCOUNTER → 2023-01-19 | Outpatient (CLI) | payer MEDICARE, MEDICAID, SELFPAY ==
--- NOTE | 2023-01-19 12:59 | AVDS_ITS ---
Reason For Study: End Stage Renal Disease LEFT Lt Inflow - 110.4/71.9 cm/sec Lt Inflow - 232.2 ml/min Prox Anastomosis - 396.3/230.4 cm/s Prox Anastomosis - 415.0 ml/min Prox Graft - 86.8/57.3 cm/s Prox Graft - 701.0 ml/min Branch noted off graft near proximal portion Mid Graft - 38.9/25.9 cm/s Mid Graft - 629.6 ml/min Dist Graft - 44.2/29.3 cm/s Dist Graft - 751.6 ml/min Lt [place] - 57.3/38.1 cm/s Lt Outflow - -543.3 ml/min Bifurcation noted after outflow. Outflow appears to be Median Cubital. VL/AV Fistula/Dialysis Graft Scan Interpretation Summary Widely patent left AVG with no significant stenosis. Ordering Physician: Werner Bowie Referring Physician: Cameron Romero Performed By: Chase Cortes RVT
== END | disposition home or self-care (01) ==
LOC: CVS 12:58
PROVIDERS: PCP Family Medicine; Referring Provider Surgery; Visit Provider Surgery
DX: N18.6 End stage renal disease (principal)
CPT/HCPCS: 93990

== ENCOUNTER 2023-02-18 14:19 | Inpatient (IN) | payer MEDICARE, MEDICAID, SELFPAY ==
[2023-02-18] VITALS (13 sets, daily range): BP systolic 65–124; BP diastolic 34–82; PULSE 96–133; RESP 14–27; TEMP 36.8–38.8; O2SAT 92–100; BMI 43.4
--- NOTE | 2023-02-18 15:30 | EKG12_ITS ---
Test Reason : HYPOTENSION Blood Pressure : / mmHG Vent. Rate : 109 BPM Atrial Rate : 109 BPM P-R Int : 114 ms QRS Dur : 088 ms QT Int : 342 ms P-R-T Axes : 024 083 045 degrees QTc Int : 460 ms Sinus tachycardia Otherwise normal ECG Confirmed by ADA DANIEL, ZIGGY ([id number]), editor magazine SHERIE MASSEY ([id number]) on 02/23/2023 12:52:04 PM Referred By: Confirmed By:NICHOLAS CABALLERO MD
--- NOTE | 2023-02-18 15:30 | RAD_ITS ---
STUDY: X-RAY CHEST REASON FOR EXAM: Male, 27 years old. fever -- -- pt was gettting dialysis had hypotension and felt woosy. states took a midodriene and tylenol at en route. to ed. also concerned for fever. TECHNIQUE: Single PA view of the chest. COMPARISON: September 17, 2022 FINDINGS: No new opacities are seen. Stable right side PEDIATRIC PHYSICAL THERAPIST shunt catheter tubing. There are interstitial fibrotic changes of the lungs. There is no demonstrated pleural abnormality. There is mild cardiac enlargement. Normal mediastinum and akira. There is prominence of the pulmonary hilar arteries and peripheral pulmonary arteries, consistent with congestive heart failure (CHF). Normal visualized aortic arch and descending thoracic aorta. Stable spinal hardware. Stable osseous structures. There is no demonstrated abnormality of the visualized soft tissue structures of the upper abdomen. RAD/Chest 1 View (Portable) IMPRESSION: Chronic CHF. Electronically Signed: Luis Oneal MD at 16:26 EDT ,
[2023-02-18 16:03] LABS: Absolute Lymphocyte Count 0.92 X10^3/uL (0.83-4.51); Absolute Neutrophil Count 9.7 X10^3/uL (2.0-7.7); Basophil# 0.07 X10^3/uL; Basophil% 0.6 % (0-1); Eosinophil# 0.21 X10^3/uL; Eosinophils% 1.8 % (0-5); Hemoglobin 11.3 g/dL (13.0-16.5); Lymphocyte # 0.92 X10^3/ul (0.83-4.51); Mean Corp Hgb Conc 29.7 g/dL (32-36); Mean Corpuscular Hgb 26.2 pg (27.0-32.0); Mean Corpuscular Volume 88.2 fL (80-94); Mean Platelet Vol. 9.9 fl (6.2-12.0); Monocyte# 0.47 X10^3/uL; Monocyte% 4.1 % (0-10); NRBC Flagged by Analyzer 0 % (0-5); Neutrophil # 9.72 X10^3/uL (2.7-7.7); Neutrophil % 85.1 % (47-70); Platelet Count 313 K/mm3 (150-450); RBC Distribution Width CV 17.3 % (11.6-14.6); RBC Distribution Width SD 55.7 fl (35.1-43.9); Red Blood Count 4.31 M/mm3 (4.6-6.2); White Blood Count 11.4 K/mm3 (4.4-11.0)
--- NOTE | 2023-02-18 16:09 | EDS_ITS ---
HPI History of Present Illness Chief Complaint: Hypotension Narrative Narrative: 27-year-old male presenting for evaluation. He was at dialysis today and had a low blood pressure in the 70s. Patient states that he has midodrine for this issue and took it and his blood pressure responded. Patient also was told that he had a temperature of 100.4. This was not with an oral thermometer. This is with a temporal thermometer. Patient did state that he felt kind of off but he also was hypotensive. He states he feels good right now. He states he has been having cough and congestion as well as sinus issues for about 10 days. His primary care physician called him and doxycycline yesterday. Patient does have history of sacral decubitus ulcer secondary to spina bifida and paraplegia. Patient states he gets wound care at [facility] and these have been slowly improving. They go every 3 weeks for dressing changes and see wound care. Patient has not his nephrostomy tube changed 2 days ago by IR at [facility]. He states has been some blood in it but this is typical when they change it. His family states that they went a little bit deeper this time. They do believe that the urine is starting to clear up. 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, stage 3 Pressure ulcer Right-sided heart failure Secondary pulmonary arterial hypertension Spina bifida Systolic CHF Umbilical hernia Home Medications bisacodyl 10 mg rectal suppository 10 mg SD DAILY PRN Constipation 09/17/22 [History Last Taken Unknown] dextrose 40 % oral gel (Glucose Gel) 15 g PO Q15M PRN Hypoglycemia 09/17/22 [History Last Taken Unknown] gabapentin 100 mg capsule 100 mg PO DAILY 09/17/22 [History Last Taken Unknown] hydrocortisone 10 mg tablet 15 mg PO BID 09/17/22 [History Last Taken Unknown] loperamide 2 mg tablet 2 mg PO Q6H PRN Diarrhea 09/17/22 [History Last Taken Unknown] magnesium hydroxide 400 mg/5 mL oral suspension (Milk of Magnesia) 400 mg PO DAILY PRN Constipation 09/17/22 [History Last Taken Unknown] midodrine 10 mg tablet 10 mg PO .QID 09/17/22 [History Last Taken Unknown] sertraline 25 mg tablet 25 mg PO DAILY 09/17/22 [History Last Taken Unknown] sodium phosphates 19 gram-7 gram/118 mL enema (Fleet Enema) 118 ml SD DAILY PRN Constipation 09/17/22 [History Last Taken Unknown] trazodone 100 mg tablet 100 mg PO QHS 09/17/22 [History Last Taken Unknown] simethicone 80 mg chewable tablet (Gas Relief (simethicone)) 80 mg PO BID PRN gi upset 10/28/22 [History Last Taken Unknown] doxycycline monohydrate 100 mg tablet 100 mg PO BID 02/18/23 [History Last Taken Unknown] ferrous gluconate 240 mg (27 mg iron) tablet (Ferate) 240 mg PO BID 02/18/23 [History Last Taken Unknown] Allergy/AdvReac Type Severity Reaction Status Date / Time ampicillin Allergy rash Verified 02/18/23 14:20 daptomycin Allergy Hives Verified 02/18/23 14:20 fentanyl Allergy Rash Verified 02/18/23 14:20 latex Allergy Hives Verified 02/18/23 14:20 meropenem Allergy rash Verified 02/18/23 14:20 morphine Allergy Hives Verified 02/18/23 14:20 sulbactam [From Unasyn] Allergy Hives Verified 02/18/23 14:20 vancomycin Allergy Hives Verified 02/18/23 14:20 Family History Grandfather Heart disease Father Hypertension Mother Hyperlipidemia Surgical History History of back surgery History of foot surgery History of kidney surgery History of ventriculoperitoneal shunting S/P cutaneous-vesicostomy S/P ureteral stent placement Status post laser lithotripsy of ureteral calculus Social History household members: family Smoking Status: Never smoker second hand exposure: Yes alcohol intake: never substance use type: does not use ROS ROS ED Constitutional Constitutional ED: Reports fever(s); Denies chills or sweats Eyes Eyes: Denies blurry vision or change in vision ENT ENT ED: Reports rhinorrhea; Denies ear pain or sore throat Cardiovascular Cardiovascular: Denies chest pain, palpitations or racing heartbeat Respiratory/Chest Respiratory/Chest: Reports cough; Denies dyspnea or sputum Gastrointestinal Gastrointestinal: Denies abdominal pain, constipation, diarrhea, nausea or vom iting Genitourinary Genitourinary ED: Denies dysuria, hematuria or urinary frequency Musculoskeletal Musculoskeletal: Denies arthralgias, myalgias or neck pain Integumentary Denies abscess, Abrasions or rash Neurologic Neurologic: Denies headache(s), paresthesias or weakness Psychiatric Psychiatric: Denies anxiety, depression, suicidal ideation or suicidal thoughts Endocrine Endocrinology: Denies polydipsia or polyuria EXAM Physical Exam Const Vital Signs: 02/18/23 14:20 02/18/23 14:51 02/18/23 15:30 Temperature 98.3 F Temperature Source Temporal Pulse Rate 121 H Respiratory Rate 14 Respiratory Effort Normal Non-Labored Respiratory Pattern Normal Blood Pressure 106/63 Blood Pressure Mean 77 Pulse Ox 98 Oxygen Delivery Method Room Air Room Air 02/18/23 14:24 02/18/23 15:24 02/18/23 16:00 Temperature 98.3 F 98.7 F 98.9 F Temperature Source Temporal Temporal Temporal Pulse Rate 121 H 107 H 121 H Respiratory Rate 14 24 H 24 H Respiratory Effort Respiratory Pattern Blood Pressure 106/63 106/66 110/66 Blood Pressure Mean 77 79 80 Pulse Ox 98 96 97 Oxygen Delivery Method Room Air Room Air Room Air 02/18/23 17:00 02/18/23 17:55 Temperature Temperature Source Pulse Rate 120 H 124 H Respiratory Rate 27 H 23 H Respiratory Effort Respiratory Pattern Tachypnea Blood Pressure 108/70 Blood Pressure Mean 82 Pulse Ox Oxygen Delivery Method Positive well nourished General Appearance ED: NAD; Negative for pallor HEENT Reports moist mucous membranes Eyes PERRL and EOMs intact bilaterally Chest Wall inspection of chest normal and palpation of chest normal Resp normal respiratory effort and clear to auscultation bilaterally Cardio regular rhythm Rate: tachycardic GI normal to inspection, nondistended, normoactive bowel sounds Neuro oriented x3 and CN's II-XII intact bilaterally Sensorium / Orientation: alert Motor Exam: strength 5/5 throughout Psych mental status grossly normal Skin General Skin Exam: Negative for jaundice or pallor MDM MDM MDM Narrative Medical decision making narrative: Patient well-appearing. He had a fever at dialysis which is now not present. He was hypotensive but with midodrine his blood pressures have normalized. Given his history sepsis work-up was started. Patient pancultured. We obtained a urine from the to be 2. This does appear to be infected. It was sent for culture. CBC shows slight leukocytosis 11.4. Hemoglobin 1.3. Platelets 313. Creatinine is elevated at 3.66 consistent with end-stage renal disease. LFTs are normal. Lactic acid within normal limits at 1.6. High-sensitivity troponin is 9. EKG. EKG sinus tachycardia with ventricular rate of 109 bpm. No evidence of ischemia. This is on my interpretation. X-ray showing some chronic showing evidence of pulmonary vascular congestion. Radiologist interprets this is c hronic. Patient tells me that his nephrostomy tube which was placed 2 days ago and there are some blood in the line however this does not be reviewed consistent with infection. Spoke with the hospitalist who was able to speak with Dr. Cohen who will see the patient in the hospital if he is admitted. The hospitalist also spoke with infectious disease who recommends linezolid and cefepime given his previous urine cultures. Patient admitted. Impression: 1. Pyelonephritis 2. hypotension resolved 3. Febrile illness Lab Data Labs: Laboratory Results - last 24 hr 02/18/23 02/18/23 15:48 16:10 WBC 11.4 H RBC 4.31 L Hgb 11.3 L Hct 38.0 L MCV 88.2 MCH 26.2 L MCHC 29.7 L RDW Std Deviation 55.7 H RDW Coeff of [place] 17.3 H Plt Count 313 MPV 9.9 Immature Gran % (Auto) 0.400 Neut % (Auto) 85.1 H Lymph % (Auto) 8.0 L [place] % (Auto) 4.1 Eos % (Auto) 1.8 Baso % (Auto) 0.6 Absolute Neuts (auto) 9.7 H Absolute Lymphs (auto) 0.92 Nucleated RBC % 0 PT 15.2 H INR 1.2 APTT 39.0 H Sodium 136 Potassium 4.2 Chloride 97 L Carbon Dioxide 30.0 Anion Gap 9 BUN 39 H Creatinine 3.66 H Est GFR (MDRD) Af Amer 25 L Est GFR (MDRD) Non-Af 21 L BUN/Creatinine Ratio 10.7 Glucose 117 H Lactic Acid 1.6 Calcium 8.6 Total Bilirubin 0.50 AST 31 ALT 20 Alkaline Phosphatase 216 H Troponin I High Sens 9 Total Protein 8.1 Albumin 2.6 L Globulin 5.5 H Albumin/Globulin Ratio 0.5 L Urine Color Red Urine Clarity Turbid Urine pH 8.0 Ur Specific [place] 1.015 Urine Protein 500 H Urine Glucose (UA) Normal Urine Ketones 5 H Urine Occult Blood 250 H Urine Nitrite Negative Urine Bilirubin Negative Urine Urobilinogen Normal Ur Leukocyte Esterase 100 H Urine RBC > 100 SEEN Urine WBC 25-50 SEEN Ur Squamous Epith Cells 0 SEEN Urine Bacteria 1+ Urine Mucus 0 SEEN Radiography Diagnostic Testing: Clinical Impression(s) from Imaging Studies Chest X-Ray 02/18/23 15:30 IMPRESSION: Chronic CHF. Electronically Signed: Luis Oneal MD at 16:26 EDT Reading Location ID and State: [facility] / [place] , Service support , Discharge Plan Triage Chief Complaint: Hypotension ED Provider: Eliud Knight Dx/Rx/DC Orders Primary Care Provider: Cameron Romero
[2023-02-18 16:17] LABS: Mucous, Urine 0 SEEN /hpf (<or=2+); Squamous Epithelial Cells - UA 0 SEEN /hpf (0-5)
[2023-02-18 16:20] LABS: International Normalized Ratio 1.2; Prothrombin Time (Protime)PT. 15.2 SECONDS (11.7-14.9)
[2023-02-18 16:35] LABS: Lactic Acid 1.6 mmol/L (0.4-1.9)
[2023-02-18 16:41] LABS: Color, Urine Red (Yellow); Glucose, Dipstick Normal (Normal); Ketone-Dipstick 5 mg/dl (Negative); Leukocyte Esterase-Dipstick 100 /ul (Negative); Nitrite-Dipstick Negative (Negative); Occult Blood-Urine 250 /ul (Negative); Protein-Dipstick 500 mg/dl (Negative); Specific Gravity, Urine 1.015 (1.002-1.030); Urine Bilirubin Dipstick Negative (Negative); Urine Clarity Turbid (Clear); Urine Urobilinogen Normal (Normal)
[2023-02-18 16:42] LABS: ALB/GLOB Ratio 0.5 RATIO (0.9-2.4); AST(SGOT) 31 U/L (15-37); Alanine Aminotransfer ALT/SGPT 20 U/L (16-61); Albumin, Serum 2.6 g/dL (3.2-5.0); Alkaline Phosphatase 216 U/L (45-117); Anion Gap 9 (5-15); BUN 39 mg/dL (7-18); BUN/Creat Ratio 10.7 RATIO (10-20); Calcium,Total 8.6 mg/dL (8.5-10.1); Chloride 97 mmol/L (98-107); Creatinine, Serum 3.66 mg/dL (0.70-1.30); EST Glomerular Filtration Rate 21 mL/min (>60); Est Glom Filt Rate - Afr Amer 25 mL/min (>60); Globulin 5.5 g/dL (2.2-4.2); Glucose 117 mg/dL (74-106); Potassium 4.2 mmol/L (3.5-5.1); Protein, Total 8.1 g/dL (6.4-8.2); Sodium Level 136 mmol/L (136-145); Troponin-I HS 9 pg/mL (3.0-78.0)
[2023-02-18 16:49] LABS: Red Blood Cells-Urine > 100 SEEN /hpf (0-5)
[2023-02-18 16:50] LABS: Bacteria 1+ /hpf (None Seen); White Blood Cells 25-50 SEEN /hpf (0-5)
[2023-02-18] MEDS: Ipratropium/Albuterol Sulfate 3 ML AMPUL.NEB INHALATION (17:56)
[2023-02-18] MEDS: Ondansetron 4 MG/2 ML Vial IV (18:08)
--- NOTE | 2023-02-18 18:11 | PCM.HP.STD ---
HPI - General General Date of Admission: 02/18/23 Date of Service: 02/18/23 Chief Complaint: Fever, fatigue, turbid nephrostomy tube output, recently placed 2 days prior, cough, congestion x 10 days concurrently. HPI Narrative The patient is a 27 y/o M w/ PMHx: Chronic normocytic anemia/iron deficiency anemia, Chronic Systolic CHF, Hx Pericardial Effusion, Secondary Pulmonary HTN, SOPHIA, Morbid Obesity, Chronic Hypotension on Midodrine with suspected underlying adrenal insufficiency, ESRD on HD , Spina bifida s/p COMPUTER ENGINEERING PROFESSOR shunt (nonfunctional) w/ paraplegic immobility syndrome w/ chronic indwelling catheter following w/ Urologist at [facility] w/ history of nephrolithiasis w/ stents in the past and chronic right nephrostomy tube which was actually just changed 2 days prior at [place] per their report who presents to the [facility] ED on 02/18/23 with history of 10 days of ongoing persistent cough with no purulent sputum, fatigue, malaise, congestion and rhinorrhea with although his mother being recently sick with similar viral type symptoms however he is not improved and on day of presentation while at dialysis had onset of fever with low blood pressure however it resolved with administration of his usual midodrine dose but he continued to be significantly fatigued and febrile with turbid urine output from his nephrostomy tube prompting ED referral. Work-up in the ED included T98.3, heart rate 121, BP 106/63, respiratory rate 14, 98% on room air eventually transitioned to nasal cannula 4 L with a Tmax in the ED of 102, CBC with WBC 11.4, hemoglobin 11.3, MCV 88.2, platelet 313 with left shift, coags with PTT 39, PT 15.2, INR 1.2, CMP with chloride 97, BUN/creatinine 39/3.66, glucose 117, lactic acid 1.6, alk phos 216, troponin 9, urinalysis with turbid appearing urine, specific remedy 1.015, protein 500, ketone 5, occult blood 250, negative nitrite, leukocyte Estrace 100, urine RBCs greater than 100, urine WBCs 25-50 with 1+ urine bacteria, urine culture pending per ED, blood culture x2 pending per ED, rapid SARS COVID and influenza antigen negative however full respiratory panel and COVID PCR is pending, chest x-ray with stable right-sided COMPUTER ENGINEERING PROFESSOR shunt, interstitial fibrotic changes in the lung, chronic CHF appearance with no overt overload, EKG with ST with no acute evidence of ischemia. Given patient's significant antibiotic allergy history and previous resistance history discussed case with Dr. Amador and Dr. Knight and patient initiated on IV linezolid and IV cefepime until cultures resulted. [facility] Medical History Anxiety BiPAP (biphasic positive airway pressure) dependence Chronic hypotension Decubitus ulcer Dialysis patient ESRD (end stage renal disease) History of nephrolithiasis Hypotension Hypotensive episode Junctional escape rhythm Kidney disease Leukocytosis Morbid obesity Non-smoker Obstructive sleep apnea Paraplegic immobility syndrome Pericardial effusion (07/14/18) 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, stage 3 Pressure ulcer Right-sided heart failure Secondary pulmonary arterial hypertension Sleep apnea Spina bifida Systolic CHF Umbilical hernia Home Medications bisacodyl 10 mg rectal suppository 10 mg NE DAILY PRN Constipation 09/17/22 [History Last Taken Unknown] dextrose 40 % oral gel (Glucose Gel) 15 g PO Q15M PRN Hypoglycemia 09/17/22 [History Last Taken Unknown] gabapentin 100 mg capsule 100 mg PO DAILY 09/17/22 [History Last Taken Unknown] hydrocortisone 10 mg tablet 15 mg PO BID 09/17/22 [History Last Taken Unknown] loperamide 2 mg tablet 2 mg PO Q6H PRN Diarrhea 09/17/22 [History Last Taken Unknown] magnesium hydroxide 400 mg/5 mL oral suspension (Milk of Magnesia) 400 mg PO DAILY PRN Constipation 09/17/22 [History Last Taken Unknown] midodrine 10 mg tablet 10 mg PO .QID 09/17/22 [History Last Taken Unknown] sertraline 25 mg tablet 25 mg PO DAILY 09/17/22 [History Last Taken Unknown] sodium phosphates 19 gram-7 gram/118 mL enema (Fleet Enema) 118 ml NE DAILY PRN Constipation 09/17/22 [History Last Taken Unknown] trazodone 100 mg tablet 100 mg PO QHS 09/17/22 [History Last Taken Unknown] simethicone 80 mg chewable tablet (Gas Relief (simethicone)) 80 mg PO BID PRN gi upset 10/28/22 [History Last Taken Unknown] doxycycline monohydrate 100 mg tablet 100 mg PO BID 02/18/23 [History Last Taken Unknown] ferrous gluconate 240 mg (27 mg iron) tablet (Ferate) 240 mg PO BID 02/18/23 [History Last Taken Unknown] Allergy/AdvReac Type Severity Reaction Status Date / Time ampicillin Allergy rash Verified 02/18/23 14:20 daptomycin Allergy Hives Verified 02/18/23 14:20 fentanyl Allergy Rash Verified 02/18/23 14:20 latex Allergy Hives Verified 02/18/23 14:20 meropenem Allergy rash Verified 02/18/23 14:20 morphine Allergy Hives Verified 02/18/23 14:20 sulbactam [From Unasyn] Allergy Hives Verified 02/18/23 14:20 vancomycin Allergy Hives Verified 02/18/23 14:20 Family History Grandfather Heart disease Father Hypertension Mother Hyperlipidemia Surgical History History of back surgery History of foot surgery History of kidney surgery History of ventriculoperitoneal shunting S/P cutaneous-vesicostomy S/P ureteral stent placement Status post laser lithotripsy of ureteral calculus Social History household members: family Smoking Status: Never smoker second hand exposure: Yes alcohol intake: never substance use type: does not use ROS ROS Narrative Admission Review of Systems: CONSTITUTIONAL: No weight loss, + fever, chills, weakness or fatigue. HEENT: + Congestion, rhinorrhea. Eyes: No visual loss, blurred vision, double vision or yellow sclerae. Ears, Nose, Throat: No hearing loss, sneezing, sore throat. SKIN: + chronic stasis/decub ulcers, frequent intertrigo. CARDIOVASCULAR: + Chronic peripheral edema, unchanged. No chest pain, chest pressure or chest discomfort, palpitations, orthopnea, syncopal events. RESPIRATORY: + shortness of breath, cough without marked sputum, wheezing reported per patient. No hemoptysis. GASTROINTESTINAL: + anorexia, No nausea, vomiting or diarrhea, abdominal pain, melena, BRBPR. GENITOURINARY: + turbid urine, nephrostomy tube in place, placed 2 days prior. NEUROLOGICAL: + Spina bifida with chronic paraplegia. No headache, dizziness, syncope, change in bowel or bladder control, seizure. MUSCULOSKELETAL: No muscle, back pain, joint pain or stiffness. HEMATOLOGIC: + anemia, bleeding or bruising. LYMPHATICS: No enlarged nodes. No history of splenectomy. PSYCHIATRIC: No history of depression or anxiety. ENDOCRINOLOGIC: No reports of sweating, cold or heat intolerance. No polyuria or polydipsia. ALLERGIES: + history of hives. Vital Signs Vital Signs Vital Signs: 02/18/23 14:20 02/18/23 14:51 02/18/23 15:30 Temperature 98.3 F Temperature Source Temporal Pulse Rate 121 H Respiratory Rate 14 Respiratory Effort Normal Non-Labored Respiratory Pattern Normal Blood Pressure 106/63 Blood Pressure Mean 77 Pulse Ox 98 Oxygen Delivery Method Room Air Room Air 02/18/23 14:24 02/18/23 15:24 02/18/23 16:00 Temperature 98.3 F 98.7 F 98.9 F Temperature Source Temporal Temporal Temporal Pulse Rate 121 H 107 H 121 H Respiratory Rate 14 24 H 24 H Respiratory Effort Respiratory Pattern Blood Pressure 106/63 106/66 110/66 Blood Pressure Mean 77 79 80 Pulse Ox 98 96 97 Oxygen Delivery Method Room Air Room Air Room Air 02/18/23 17:00 02/18/23 17:55 Temperature Temperature Source Pulse Rate 120 H 124 H Respiratory Rate 27 H 23 H Respiratory Effort Respiratory Pattern Tachypnea Blood Pressure 108/70 Blood Pressure Mean 82 Pulse Ox Oxygen Delivery Method Physical Exam Narrative Physical Examination: General: Awakens to stimuli, alert once awoken, oriented x 3 and cooperative, seated upright in the ED bed, fatigued and ill appearing, no acute distress. Skin: Normal color, normal turgor, no icterus, no cyanosis except for bilateral lower extremity venous stasis skin changes, chronic stasis decubitus ulcers w/ BL ischial/abdominal region. HEENT: AT/NC, EOMI, PERRLA, mildly dry MM, no carotid bruits or JVD noted; however, thickened neck makes evaluation difficult. Lungs: Diminished, distant, mildly increased RR but no distress, no rales, ronchi or wheezing. Heart: Mildly tachycardic with regular rhythm; no gallop, rub audible. Abdomen: Soft, morbidly obese, NTTP, no obvious distention but habitus makes evaluation difficult, distant normal bowel sounds, unable to discern HSM secondary to habitus, nephrostomy tube in place laterally right side. Extremities: No cyanosis, no clubbing, see skin, pedal edema to mid juarez, similar to his prior presentation. Neurological: Patient awake, alert, oriented as noted, cognitive function appears baseline intact but fatigued and lethargic, pupils equally reactive to light and accommodation, cranial nerves grossly normal, chronic significant deficits with paraplegia secondary to underlying spina bifida, strength severely global decreased secondary to acute presentation and underlying chronic comorbidities Psychiatric: Affect appears fatigued, no acute evidence of depressive or anxiety feelings. Results Lab / Micro Data 02/18/23 15:48 02/18/23 15:48 Labs: Laboratory Results - last 24 hr 02/18/23 15:48: WBC 11.4 H, RBC 4.31 L, Hgb 11.3 L, Hct 38.0 L, MCV 88.2, MCH 26.2 L, MCHC 29.7 L, RDW Std Deviation 55.7 H, RDW Coeff of Francisco 17.3 H, Plt Count 313, MPV 9.9, Immature Gran % (Auto) 0.400, Neut % (Auto) 85.1 H, Lymph % (Auto) 8.0 L, [place] % (Auto) 4.1, Eos % (Auto) 1.8, Baso % (Auto) 0.6, Absolute Neuts (auto) 9.7 H, Absolute Lymphs (auto) 0.92, Nucleated RBC % 0, PT 15.2 H, INR 1.2, APTT 39.0 H, Sodium 136, Potassium 4.2, Chloride 97 L, Carbon Dioxide 30.0, Anion Gap 9, BUN 39 H, Creatinine 3.66 H, Est GFR (MDRD) Af Amer 25 L, Est GFR (MDRD) Non-Af 21 L, BUN/Creatinine Ratio 10.7, Glucose 117 H, Lactic Acid 1.6, Calcium 8.6, Total Bilirubin 0.50, AST 31, ALT 20, Alkaline Phosphatase 216 H, Troponin I High Sens 9, Total Protein 8.1, Albumin 2.6 L, Globulin 5.5 H, Albumin/Globulin Ratio 0.5 L 02/18/23 16:10: Urine Color Red, Urine Clarity Turbid, Urine pH 8.0, Ur Specific [place] 1.015, Urine Protein 500 H, Urine Glucose (UA) Normal, Urine Ketones 5 H, Urine Occult Blood 250 H, Urine Nitrite Negative, Urine Bilirubin Negative, Urine Urobilinogen Normal, Ur Leukocyte Esterase 100 H, Urine RBC > 100 SEEN, Urine WBC 25-50 SEEN, Ur Squamous Epith Cells 0 SEEN, Urine Bacteria 1+, Urine Mucus 0 SEEN Micro: Microbiology 02/18/23 15:48 Nasal Secretion SARS-CoV-2 & FLU Antigen (Rapid) - Final Radiology Impression Chest X-Ray 02/18/23 15:30 IMPRESSION: Chronic CHF. Electronically Signed: Luis Oneal MD at 16:26 EDT Reading Location ID and State: [facility] / [place] , Service support , Assessment & Plan Assessment/Plan (1) UTI (urinary tract infection): PLAN: Plan The patient is a 27 y/o M w/ PMHx: Chronic normocytic anemia/iron deficiency anemia, Chronic Systolic CHF, Hx Pericardial Effusion, Secondary Pulmonary HTN, SOPHIA, Morbid Obesity, Chronic Hypotension on Midodrine with suspected underlying adrenal insufficiency, ESRD on HD , Spina bifida s/p COMPUTER ENGINEERING PROFESSOR shunt (nonfunctional) w/ paraplegic immobility syndrome w/ chronic indwelling catheter following w/ Urologist at [facility] w/ history of nephrolithiasis w/ stents in the past and chronic right nephrostomy tube which was actually just changed 2 days prior at [place] per their report who presents to the [facility] ED on 02/18/23 with history of 10 days of ongoing persistent cough with no purulent sputum, fatigue, malaise, congestion and rhinorrhea with although his mother being recently sick with similar viral type symptoms however he is not improved and on day of presentation while at dialysis had onset of fever with low blood pressure however it resolved with administration of his usual midodrine dose but he continued to be significantly fatigued and febrile with turbid urine output from his nephrostomy tube prompting ED referral. #1. Acute pyelonephritis/Acute complicated UTI complicated by chronic nephrostomy tube with recent change 2 days prior: Will admit patient to the PCU to be cautious although patient does tend to run low in regard to BP and chronically appears mildly tachycardic, will continue judicious hydration given underlying CHF history, maintain on IV cefepime and linezolid per discussion with Dr. Amador infectious disease will be consulted and follow, discussed case also with Dr. Phillips urology given recent nephrostomy tube placement and he will also evaluate, stress dose steroids given chronic usage with adrenal insufficiency history, PT/OT/CM consultations for discharge planning, will consult zigzagger per protocol, maintain on fall and aspiration precautions. #2. Suspected acute viral syndrome concurrently: Full respiratory panel and COVID PCR pending, will contact specifically his mother has since improved, suspect presentation is in part due to this, continue conservative interventions, will place on budesonide scheduled regimen and as needed albuterol per patient strong request. #3. HFrEF previous chart history noted however most recent echocardiogram with normal EF/function: 10/29/2022 echocardiogram with normal LV size, LV systolic function normal, EF 60%, PASP 30 mmHg with no mention of any diastolic failure. We will continue judicious hydration, not on any regimen nor statin therapy, given hematuria will also defer aspirin at this time. #4. Chronic pressure ulcers/chronic osteomyelitis: Patient with chronic osteo, will continue frequent position changes, barrier cream, pre-Jyothi had utilized Dakin's solution with packing but verifying current home dressing changes and will continue, wound RN consultation. #5. ESRD: Patient continues to follow with Dr. Tinsley, patient last HD on day of presentation 02/18/2023, nephrology consulted, pending. #6. Chronic hypotension with underlying adrenal insufficiency: We will continue patient home chronic midodrine regimen, if clinically worsens low threshold to stress dose. #7. Chronic normocytic anemia/iron deficiency anemia: Admission hemoglobin 11.3, baseline hemoglobin appears more recently 9-10, repeat CBC in AM, continue supplementation. #8. Spina bifida w/ paraplegic: s/p COMPUTER ENGINEERING PROFESSOR shunt (nonfunctional), patient w/ as noted chronic indwelling catheter coupled with concurrent chronic nephrostomy tube, following w/ Urologist at [facility] w/ history of nephrolithiasis w/ stents/nephrostomy tube placement with most recent nephrostomy replacement 02/16/2023, unfortunately eventually transitioned given worsening renal disease to dialysis, per family plans potential transition to home regimen, will maintain on frequent positional changes, offloading, PT and OT assessments as well as case management for discharge planning. #9. Chronic bilateral lower extremity edema: Appears stable currently, if necessary may add cee wraps. #10. Morbid Obesity: Weight loss and lifestyle changes encouraged. #11. SOPHIA: We will continue CPAP nightly. #12. Anxiety and depression: We will continue patient home sertraline regimen. #13. GERD: We will continue patient home PPI. #14. DVT prophylaxis: Lovenox. #15. CODE STATUS: Full code. Charges/Coding Visit Charges Inpatient E&M: 26883 Init Hosp L3
[2023-02-18] MEDS: 0.9% Normal Saline (1000mL) 1,000 ML 75 ML IV (21:12)
[2023-02-18] MEDS: Menthol/Lanolin/Calamine/Znox 113 GM Tube 1 APPLIC TOPICAL (21:13)
[2023-02-18] MEDS: Hydrocortisone 10 MG Tablet 15 MG PO (21:13)
[2023-02-18] MEDS: Miconazole Nitrate 43 GM Bottle 1 APPLIC TOPICAL (21:13)
[2023-02-18] MEDS: traZODone 100 MG Tablet PO (21:13)
[2023-02-18] MEDS: Midodrine HCl 5 MG Tablet 10 MG PO (21:14)
[2023-02-18] MEDS: Ferrous Gluconate 324 MG Tablet PO (21:14)
[2023-02-18] MEDS: Acetaminophen 325 MG Tablet 650 MG PO (21:44)
[2023-02-18] MEDS: Lactated Ringers 1,000 ML 999 ML IV (22:27)
[2023-02-18] MEDS: Lactated Ringers 1,000 ML 150 ML IV (23:25)
[2023-02-19] VITALS (42 sets, daily range): BP systolic 71–219; BP diastolic 34–93; PULSE 76–118; RESP 14–28; TEMP 36.1–37.2; O2SAT 91–100; BMI 44.0; BMI 44.3
[2023-02-19] MEDS: Lactated Ringers 1,000 ML 999 ML IV (00:35)
[2023-02-19] MEDS: LACTATED RINGERS 500 ML 999 ML IV (01:45)
--- NOTE | 2023-02-19 02:29 | PCM.HOSP.N ---
Hospitalist Note 27-year-old gentleman who was admitted yesterday evening for hypotension. Patient was on dialysis and his blood pressure was in 70s. Patient had temperature 100.4 ?F. Patient has nephrostomy tube which gets changed every 3 to 4 weeks in [facility] last changed on 02/16/2023. In ED patient BP was under 6/63 but in the floor it got dropped in SBP 60s to 70s. His baseline blood pressure usually in 130s to 140s as recorded in October 2022. But it is dropped 216/71 on 12/31. Patient also has chronic adrenal insufficiency and is on hydrocortisone at home and chronic hypotension on midodrine 10 mg 4 times daily. Patient was admitted with suspicion of pyelonephritis with UA shows WBC 25-50 cells and RBC more than 100 cells. Patient on IV cefepime and linezolid after ID discussion with admitting hospitalist. On the floor patient was restricted with IV fluid Ringer lactate 30 mill per KG per distill blood pressure low in low 80s, 81/34 heart rate 106/min therefore transferred to ICU. There is suspicion of sepsis in appropriate clinical setting but patient has other confounding factors including chronic hypotension on midodrine and chronic adrenal insufficiency on hydrocortisone. The patient presented with sepsis due to with clinical indicators of tachycardia, fever, tachypnea, sick for about 10 days and leukocytosis mainly polymorphs most likely due to acute pyelonephritis/complicated UTI with chronic nephrostomy tube with acute sepsis-related organ dysfunction as evidenced by fluid resistant hypotension despite on oral hydrocortisone and midodrine Patient is started on IV Levophed. Brake Operator Helper consulted. ID, urologist, data input clerk are already consulted. On exam Patient was feeling dizzy before fluid boluses but dizziness is better. Blood pressure still low. Abdomen distended. Bowel sounds present. Soft. Bowel incontinence. : On hemodialysis. Nephrostomy tube. Lungs: Air entry diminished bilaterally. CPAP at night. Tachypnea on 4 L of oxygen. Total time of the visit including total time spent in counseling or coordination of care, (more than 50% of the total time, spent in obtaining medical information from nurses and other ancillary care providers,explaining to the patient about labs, imaging, diagnosis and management of active complex medical conditions), managing hypotension for more than 1 hours, review of labs and imaging is 70 minutes. Procedures Hospitalists Procedures: [id number]
[2023-02-19] MEDS: Norepinephrine 8 MG in 0.9% Normal Saline (250mL Bag) 242 ML 9.4 MG CONT INF (02:59)
[2023-02-19] MEDS: Hydrocortisone Sod Succinate 100 MG/2 ML Vial IV ×3 (03:00→21:22)
[2023-02-19] MEDS: 0.9% Saline Lock 10 ML Syringe IV ×3 (03:01→21:22)
--- NOTE | 2023-02-19 03:06 | SEPSISATNOTE ---
Sepsis Attestation Sepsis Alert: Yes Sepsis Attestation: Agree w/Sepsis Date exam was performed: 02/18/23 Time exam was performed: 10:15 Possible Source of Sepsis: Genitourinary Sepsis Organ Dysfunction Criteria Present: SBP < 90 mmHg or MAP < 65 mmHg, SBP decrease of more than 40 mmHg and Creatinine > 2.0 mg/dL Fluid Resuscitation Fluid Resuscitation ordered: 30 ml/kg fluid bolus ordered Sepsis Note Date exam was performed: 02/19/23 Time exam was performed: 03:08 Response to fluids: Non Fluid responsive hypotension and Vasopressors started
[2023-02-19 03:36] LABS: Absolute Lymphocyte Count 1.46 X10^3/uL (0.83-4.51); Absolute Neutrophil Count 9.8 X10^3/uL (2.0-7.7); Basophil# 0.09 X10^3/uL; Basophil% 0.7 % (0-1); Eosinophil# 0.05 X10^3/uL; Eosinophils% 0.4 % (0-5); Hematocrit 34.9 % (40-54); Lymphocyte # 1.46 X10^3/ul (0.83-4.51); Lymphocyte % 11.9 % (19-41); Mean Corp Hgb Conc 28.7 g/dL (32-36); Mean Corpuscular Volume 90.9 fL (80-94); Monocyte# 0.78 X10^3/uL; Monocyte% 6.4 % (0-10); NRBC Flagged by Analyzer 0 % (0-5); Neutrophil # 9.77 X10^3/uL (2.7-7.7); Neutrophil % 79.8 % (47-70); Platelet Count 297 K/mm3 (150-450); RBC Distribution Width CV 17.3 % (11.6-14.6); RBC Distribution Width SD 56.9 fl (35.1-43.9); Red Blood Count 3.84 M/mm3 (4.6-6.2); White Blood Count 12.3 K/mm3 (4.4-11.0)
[2023-02-19 03:59] LABS: ALB/GLOB Ratio 0.5 RATIO (0.9-2.4); AST(SGOT) 21 U/L (15-37); Alanine Aminotransfer ALT/SGPT 15 U/L (16-61); Albumin, Serum 2.3 g/dL (3.2-5.0); Alkaline Phosphatase 203 U/L (45-117); Anion Gap 5 (5-15); BUN 41 mg/dL (7-18); BUN/Creat Ratio 9.7 RATIO (10-20); Chloride 99 mmol/L (98-107); Creatinine, Serum 4.23 mg/dL (0.70-1.30); EST Glomerular Filtration Rate 18 mL/min (>60); Est Glom Filt Rate - Afr Amer 22 mL/min (>60); Glucose 137 mg/dL (74-106); Potassium 4.2 mmol/L (3.5-5.1); Protein, Total 7.3 g/dL (6.4-8.2); Sodium Level 133 mmol/L (136-145)
--- NOTE | 2023-02-19 06:27 | CON.PCM.CC_ITS ---
Assessment & Plan Assessment/Plan (1) Septic shock: PLAN: Plan RECOMMENDATIONS: 1. Continue empiric broad-spectrum antimicrobials. ID consultation is pending. 2. Continue Levophed to maintain a systolic blood pressure at or above 90 mmHg. 3. Continue scheduled midodrine and stress dose steroids. 4. Nephrology consultation for ongoing hemodialysis needs. 5. Continue PAP support with sleep. IMPRESSIONS: 1. Undifferentiated shock Most likely multifactorial in etiology with concern for underlying sepsis, intravascular volume depletion and adrenal insufficiency contributing. Pulmonary and/or genitourinary sources of infection are suspected. The patient has been adequately volume resuscitated. He does have a baseline low blood pressure with systolics in the 90 to 110 mmHg range. Therefore, we will titrate his Levophed to maintain a systolic pressure at or above 90 mmHg. I would hold off on additional fluid resuscitation, given his underlying renal insufficiency and need for dialysis. Continue scheduled midodrine and stress dose steroids as ordered. Once medically stabilized, the patient's stress dose steroids will be weaned as tolerated. The patient will be continued on empiric broad-spectrum antimicrobials. Infectious disease consultation is pending. 2. End-stage renal disease on hemodialysis Nephrology consultation is pending to assist with medical management. 3. History of adrenal insufficiency with persistent/chronic hypotension Continue scheduled midodrine. Continue stress dose steroids as ordered. 4. History of congestive heart failure/anemia/spina bifida with paraplegia/obesity/sleep apnea Complicates care, management, recovery and prognosis. Continue PAP therapy with sleep. Critical care time: 33 minutes, independent of procedures. HPI Consult Data Date of Consult: 02/20/23 HPI Narrative Reason for Consultation: Septic shock HPI Narrative: The patient is a 27-year-old male, with a history as outlined below, who presented to the emergency department on February 18 with fever, fatigue and cough. The patient reported that he initially felt that he was experiencing upper respiratory infection. The patient has a complex medical history including baseline spina bifida with immobility, end-stage renal disease on hemodialysis, anemia, chronic congestive heart failure, obstructive sleep apnea, chronic hypotension, and adrenal insufficiency. The patient has a right nephrostomy tube which was just changed 2 days prior to his hospitalization. The patient reported that his blood pressure at his baseline typically runs 90 to 110 mmHg systolic. On presentation to the emergency department, the patient was initially doc umented to be afebrile and hemodynamically stable. Initial laboratory evaluation revealed a white blood cell count of 11,000. Chemistry profile was notable for a creatinine of 3.6. Lactate was within normal limits. Urine analysis was positive for leukocyte esterase and 1+ urine bacteria. Chest x-ray demonstrated no acute cardiopulmonary process. The patient initially received supplemental IV fluid hydration and was started on broad-spectrum antimicrobials along with stress dose steroids. He was initially admitted to the progressive care unit. During the patient's most recent hospitalization in October 2022, he did demonstrate growth of Klebsiella, Acinetobacter and MRSA on cultures. Over the patient initially received supplemental IV fluid hydration following his admission to the hospital, he remained hypotensive. Therefore, overnight, the patient was transferred to the medical intensive care unit to be initiated on vasopressor support. 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, stage 3 Pressure ulcer Right-sided heart failure Secondary pulmonary arterial hypertension Sleep apnea Spina bifida Systolic CHF Umbilical hernia Home Medications bisacodyl 10 mg rectal suppository 10 mg ID DAILY PRN Constipation 09/17/22 [History Last Taken Unknown] dextrose 40 % oral gel (Glucose Gel) 15 g PO Q15M PRN Hypoglycemia 09/17/22 [History Last Taken Unknown] gabapentin 100 mg capsule 100 mg PO DAILY 09/17/22 [History Last Taken Unknown] hydrocortisone 10 mg tablet 15 mg PO BID 09/17/22 [History Last Taken Unknown] loperamide 2 mg tablet 2 mg PO Q6H PRN Diarrhea 09/17/22 [History Last Taken Unknown] magnesium hydroxide 400 mg/5 mL oral suspension (Milk of Magnesia) 400 mg PO DAILY PRN Constipation 09/17/22 [History Last Taken Unknown] midodrine 10 mg tablet 10 mg PO .QID 09/17/22 [History Last Taken Unknown] sertraline 25 mg tablet 25 mg PO DAILY 09/17/22 [History Last Taken Unknown] sodium phosphates 19 gram-7 gram/118 mL enema (Fleet Enema) 118 ml ID DAILY PRN Constipation 09/17/22 [History Last Taken Unknown] trazodone 100 mg tablet 100 mg PO QHS 09/17/22 [History Last Taken Unknown] simethicone 80 mg chewable tablet (Gas Relief (simethicone)) 80 mg PO BID PRN gi upset 10/28/22 [History Last Taken Unknown] doxycycline monohydrate 100 mg tablet 100 mg PO BID 02/18/23 [History Last Taken Unknown] ferrous gluconate 240 mg (27 mg iron) tablet (Ferate) 240 mg PO BID 02/18/23 [History Last Taken Unknown] Allergy/AdvReac Type Severity Reaction Status Date / Time ampicillin Allergy rash Verified 02/18/23 14:20 daptomycin Allergy Hives Verified 02/18/23 14:20 fentanyl Allergy Rash Verified 02/18/23 14:20 latex Allergy Hives Verified 02/18/23 14:20 meropenem Allergy rash Verified 02/18/23 14:20 morphine Allergy Hives Verified 02/18/23 14:20 sulbactam [From Unasyn] Allergy Hives Verified 02/18/23 14:20 vancomycin Allergy Hives Verified 02/18/23 14:20 Family History Grandfather Heart disease Father Hypertension Mother Hyperlipidemia Surgical History History of back surgery History of foot surgery History of kidney surgery History of ventriculoperitoneal shunting S/P cutaneous-vesicostomy S/P ureteral stent placement Status post laser lithotripsy of ureteral calculus Social History household members: family Smoking Status: Never smoker second hand exposure: Yes alcohol intake: never substance use type: does not use ROS ROS Narrative 10 systems were reviewed with pertinent positives as noted in the HPI above. Physical Exam Const alert and no apparent distress Constitutional Narrative: Obese. General Appearance: cooperative HEENT normocephalic and head/scalp atraumatic Eyes PERRL, EOMs intact bilaterally and conjunctivae normal Neck supple General: trachea midline Chest inspection of chest normal Resp normal respiratory effort Auscultation: diminished lung sounds; Negative for rales, rhonchi or wheezes Cardio regular rate and regular rhythm GI soft to palpation and non-tender Extremity General Extremity: edema; Negative for clubbing Skin Skin Narrative: Venous stasis dermatitis Neuro oriented x3 Neuro Narrative: Baseline paraplegia Psych cooperative and affect normal Lab / Micro Data 02/19/23 03:30 02/19/23 03:30 Labs: Laboratory Results - last 24 hr 02/18/23 15:48: WBC 11.4 H, RBC 4.31 L, Hgb 11.3 L, Hct 38.0 L, MCV 88.2, MCH 26.2 L, MCHC 29.7 L, RDW Std Deviation 55.7 H, RDW Coeff of [place] 17.3 H, Plt Count 313, MPV 9.9, Immature Gran % (Auto) 0.400, Neut % (Auto) 85.1 H, Lymph % (Auto) 8.0 L, [place] % (Auto) 4.1, Eos % (Auto) 1.8, Baso % (Auto) 0.6, Absolute Neuts (auto) 9.7 H, Absolute Lymphs (auto) 0.92, Nucleated RBC % 0, PT 15.2 H, INR 1.2, APTT 39.0 H, Sodium 136, Potassium 4.2, Chloride 97 L, Carbon Dioxide 30.0, Anion Gap 9, BUN 39 H, Creatinine 3.66 H, Est GFR (MDRD) Af Amer 25 L, Est GFR (MDRD) Non-Af 21 L, BUN/Creatinine Ratio 10.7, Glucose 117 H, Lactic Acid 1.6, Calcium 8.6, Total Bilirubin 0.50, AST 31, ALT 20, Alkaline Phosphatase 216 H, Troponin I High Sens 9, Total Protein 8.1, Albumin 2.6 L, Globulin 5.5 H, Albumin/Globulin Ratio 0.5 L 02/18/23 16:10: Urine Color Red, Urine Clarity Turbid, Urine pH 8.0, Ur Specific [place] 1.015, Urine Protein 500 H, Urine Glucose (UA) Normal, Urine Ketones 5 H , Urine Occult Blood 250 H, Urine Nitrite Negative, Urine Bilirubin Negative, Urine Urobilinogen Normal, Ur Leukocyte Esterase 100 H, Urine RBC > 100 SEEN, Urine WBC 25-50 SEEN, Ur Squamous Epith Cells 0 SEEN, Urine Bacteria 1+, Urine Mucus 0 SEEN 02/19/23 03:30: WBC 12.3 H, RBC 3.84 L, Hgb 10.0 L, Hct 34.9 L, MCV 90.9, MCH 26.0 L, MCHC 28.7 L, RDW Std Deviation 56.9 H, RDW Coeff of [place] 17.3 H, Plt Count 297, MPV 10.0, Immature Gran % (Auto) 0.800, Neut % (Auto) 79.8 H, Lymph % (Auto) 11.9 L, [place] % (Auto) 6.4, Eos % (Auto) 0.4, Baso % (Auto) 0.7, Absolute Neuts (auto) 9.8 H, Absolute Lymphs (auto) 1.46, Nucleated RBC % 0, Sodium 133 L , Potassium 4.2, Chloride 99, Carbon Dioxide 29.0, Anion Gap 5, BUN 41 H, Creatinine 4.23 H, Estim Creat Clear Calc 19.90, Est GFR (MDRD) Af Amer 22 L, Est GFR (MDRD) Non-Af 18 L, BUN/Creatinine Ratio 9.7 L, Glucose 137 H, Calcium 8.0 L, Total Bilirubin 0.50, AST 21, ALT 15 L, Alkaline Phosphatase 203 H, Total Protein 7.3, Albumin 2.3 L, Globulin 5.0 H, Albumin/Globulin Ratio 0.5 L Micro: Microbiology 02/18/23 18:04 Mucosa - Nasopharyngeal Coronavirus COVID-19 PCR - Final 02/18/23 18:04 Mucosa - Nasopharyngeal Respiratory Panel (PCR) - Final 02/18/23 15:48 Nasal Secretion SARS-CoV-2 & FLU Antigen (Rapid) - Final Radiology Impression Chest X-Ray 02/18/23 15:30 IMPRESSION: Chronic CHF. Electronically Signed: Luis Oneal MD at 16:26 EDT , Charges/Coding Procedures Hospitalists Procedures: [id number] Critial Care 1st Hr
[2023-02-19] MEDS: Budesonide Respules 0.5 MG/2 ML AMPUL.NEB. INHALATION ×2 (07:15→19:15)
[2023-02-19] MEDS: Menthol/Lanolin/Calamine/Znox 113 GM Tube 1 APPLIC TOPICAL ×4 (09:18→21:21)
[2023-02-19] MEDS: Cefepime HCl 2 GM in 0.9% Normal Saline (100mL MB+) 100 ML IV (09:18)
[2023-02-19] MEDS: 0.9% Normal Saline (250mL Bag) 250 ML 15 ML IV ×2 (09:18→22:03)
[2023-02-19] MEDS: Miconazole Nitrate 43 GM Bottle 1 APPLIC TOPICAL ×2 (09:18→21:20)
[2023-02-19] MEDS: Midodrine HCl 5 MG Tablet 10 MG PO ×4 (09:19→21:21)
[2023-02-19] MEDS: Gabapentin 100 MG Capsule PO (09:27)
--- NOTE | 2023-02-19 09:31 | CT_ITS ---
STUDY: CT ABDOMEN AND PELVIS WITHOUT CONTRAST REASON FOR EXAM: Male, 27 years old. Pyelonephritis. History of spina bifida. OVERNIGHT CAREGIVER shunt. RADIATION DOSAGE (If Supplied By Facility): CTDIvol = ( 31.72 ) mGy, DLP = ( 1529.38 ) mGycm TECHNIQUE: Transaxial images were obtained from the dome of the diaphragm to the symphysis pubis without oral contrast, and without intravenous contrast. Sagittal and coronal images were reconstructed. Individualized dose optimization techniques were used for this CT. COMPARISON: Comparison is made with prior study dated October 28, 2022. FINDINGS: The visualized lung bases are unremarkable. The visualized portions of the heart are within normal limits. Normal liver. Normal gallbladder and extrahepatic biliary system. Normal spleen. Normal pancreas. Normal bilateral adrenal glands. A right-sided percutaneous nephrostomy catheter is in situ. No evidence of hydronephrosis. Stable focal calcifications in the lower pole calyx of the right kidney suggestive of nonobstructive right intrarenal calculi. Stable atrophy of the left kidney. Normal visualized stomach. Normal small intestine. Normal colon. The appendix is visualized and appears normal. Normal abdominal aorta. Normal inferior vena cava. Normal retroperitoneum. Normal urinary bladder. Stable right inguinal hernia containing nondilated small bowel. Persistent ulceration overlying the buttocks bilaterally. There is evidence of a 4.1 cm x 3.3 cm fluid collection deep in the something is fat overlying the medial right buttock. A ventriculoperitoneal shunt tube is seen. The patient has a spina bifida. Chronic deformity of the pelvis and hip joints with subluxation. Focal sclerosis of the right ischium which is unchanged. Once again, surgical fixation hardware seen throughout the spine with marked degree of kyphoscoliosis. CT/Abdomen/Pelvis without Cont IMPRESSION: Right cutaneous nephrostomy catheter with the nonobstructive calculi in the lower pole calyx of the right kidney. No evidence of hydronephrosis. Stable cortical thinning in the left kidney. Stable changes in the posterior buttocks as described. Electronically Signed: Jesus Alberto Munoz MD at 10:30 EDT ,
--- NOTE | 2023-02-19 10:18 | PCM.CONS.GEN ---
Assessment & Plan Assessment/Plan (1) ESRD (end stage renal disease): (2) Septic shock: PLAN: Improved. Ucx and bcx pending. H/o MDR uti/pyelo in 10/2022, so will order isolation. Checking CT abd/pelvis. Cont linezolid/cefepime, adjusting dose due to ESRD. Will add gent while waiting on urine results. Will follow, thank you HPI Consult Data Date of Consult: 02/19/23 HPI Narrative Reason for Consultation: septic shock HPI Narrative: OKSANA DAMIAN, is a 27 M with ESRD on HD, spina bifida s/p ENTRY WRITER shunt, paraplegic, chonic molina, chronic R neph tube due to stones. Had URI for past 10 days or so, had been improving. Had neph tube changed 02/16, then with new onset fever, fatigue, not feeling well. No abd pain or back pain. Came to ED, admitted to icu on linezolid/cefepime. Feeling better this AM, BP improved. Full ROS performed and neg except as noted above. 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, stage 3 Pressure ulcer Right-sided heart failure Secondary pulmonary arterial hypertension Sleep apnea Spina bifida Systolic CHF Umbilical hernia Home Medications bisacodyl 10 mg rectal suppository 10 mg HI DAILY PRN Constipation 09/17/22 [History Last Taken Unknown] dextrose 40 % oral gel (Glucose Gel) 15 g PO Q15M PRN Hypoglycemia 09/17/22 [History Last Taken Unknown] gabapentin 100 mg capsule 100 mg PO DAILY 09/17/22 [History Last Taken Unknown] hydrocortisone 10 mg tablet 15 mg PO BID 09/17/22 [History Last Taken Unknown] loperamide 2 mg tablet 2 mg PO Q6H PRN Diarrhea 09/17/22 [History Last Taken Unknown] magnesium hydroxide 400 mg/5 mL oral suspension (Milk of Magnesia) 400 mg PO DAILY PRN Constipation 09/17/22 [History Last Taken Unknown] midodrine 10 mg tablet 10 mg PO .QID 09/17/22 [History Last Taken Unknown] sertraline 25 mg tablet 25 mg PO DAILY 09/17/22 [History Last Taken Unknown] sodium phosphates 19 gram-7 gram/118 mL enema (Fleet Enema) 118 ml HI DAILY PRN Constipation 09/17/22 [History Last Taken Unknown] trazodone 100 mg tablet 100 mg PO QHS 09/17/22 [History Last Taken Unknown] simethicone 80 mg chewable tablet (Gas Relief (simethicone)) 80 mg PO BID PRN gi upset 10/28/22 [History Last Taken Unknown] doxycycline monohydrate 100 mg tablet 100 mg PO BID 02/18/23 [History Last Taken Unknown] ferrous gluconate 240 mg (27 mg iron) tablet (Ferate) 240 mg PO BID 02/18/23 [History Last Taken Unknown] Allergy/AdvReac Type Severity Reaction Status Date / Time ampicillin Allergy rash Verified 02/18/23 14:20 daptomycin Allergy Hives Verified 02/18/23 14:20 fentanyl Allergy Rash Verified 02/18/23 14:20 latex Allergy Hives Verified 02/18/23 14:20 meropenem Allergy rash Verified 02/18/23 14:20 morphine Allergy Hives Verified 02/18/23 14:20 sulbactam [From Unasyn] Allergy Hives Verified 02/18/23 14:20 vancomycin Allergy Hives Verified 02/18/23 14:20 Family History Grandfather Heart disease Father Hypertension Mother Hyperlipidemia Surgical History History of back surgery History of foot surgery History of kidney surgery History of ventriculoperitoneal shunting S/P cutaneous-vesicostomy S/P ureteral stent placement Status post laser lithotripsy of ureteral calculus Social History household members: family Smoking Status: Never smoker second hand exposure: Yes alcohol intake: never substance use type: does not use Physical Exam Const alert, oriented x3 and no apparent distress General Appearance: cooperative HEENT normocephalic and head/scalp atraumatic Eyes PERRL and EOMs intact bilaterally Neck supple and No nodes Resp normal air movement and clear to auscultation bilaterally Cardio regular rate and regular rhythm GI soft to palpation and non-tender; Negative for non-distended Extremity General Extremity: edema Skin no rashes or lesions noted Neuro CN's II-XII intact bilaterally Lab / Micro Data Attestation: I reviewed the patient's lab results. 02/19/23 03:30 02/19/23 03:30 Labs: Laboratory Results - last 24 hr 02/18/23 15:48: WBC 11.4 H, RBC 4.31 L, Hgb 11.3 L, Hct 38.0 L, MCV 88.2, MCH 26.2 L, MCHC 29.7 L, RDW Std Deviation 55.7 H, RDW Coeff of [place] 17.3 H, Plt Count 313, MPV 9.9, Immature Gran % (Auto) 0.400, Neut % (Auto) 85.1 H, Lymph % (Auto) 8.0 L, [place] % (Auto) 4.1, Eos % (Auto) 1.8, Baso % (Auto) 0.6, Absolute Neuts (auto) 9.7 H, Absolute Lymphs (auto) 0.92, Nucleated RBC % 0, PT 15.2 H, INR 1.2, APTT 39.0 H, Sodium 136, Potassium 4.2, Chloride 97 L, Carbon Dioxide 30.0, Anion Gap 9, BUN 39 H, Creatinine 3.66 H, Est GFR (MDRD) Af Amer 25 L, Est GFR (MDRD) Non-Af 21 L, BUN/Creatinine Ratio 10.7, Glucose 117 H, Lactic Acid 1.6, Calcium 8.6, Total Bilirubin 0.50, AST 31, ALT 20, Alkaline Phosphatase 216 H, Troponin I High Sens 9, Total Protein 8.1, Albumin 2.6 L, Globulin 5.5 H, Albumin/Globulin Ratio 0.5 L 02/18/23 16:10: Urine Color Red, Urine Clarity Turbid, Urine pH 8.0, Ur Specific [place] 1.015, Urine Protein 500 H, Urine Glucose (UA) Normal, Urine Ketones 5 H, Urine Occult Blood 250 H, Urine Nitrite Negative, Urine Bilirubin Negative, Urine Urobilinogen Normal, Ur Leukocyte Esterase 100 H, Urine RBC > 100 SEEN, Urine WBC 25-50 SEEN, Ur Squamous Epith Cells 0 SEEN, Urine Bacteria 1+, Urine Mucus 0 SEEN 02/19/23 03:30: WBC 12.3 H, RBC 3.84 L, Hgb 10.0 L, Hct 34.9 L, MCV 90.9, MCH 26.0 L, MCHC 28.7 L, RDW Std Deviation 56.9 H, RDW Coeff of [place] 17.3 H, Plt Count 297, MPV 10.0, Immature Gran % (Auto) 0.800, Neut % (Auto) 79.8 H, Lymph % (Auto) 11.9 L, [place] % (Auto) 6.4, Eos % (Auto) 0.4, Baso % (Auto) 0.7, Absolute Neuts (auto) 9.8 H, Absolute Lymphs (auto) 1.46, Nucleated RBC % 0, Sodium 133 L, Potassium 4.2, Chloride 99, Carbon Dioxide 29.0, Anion Gap 5, BUN 41 H, Creatinine 4.23 H, Estim Creat Clear Calc 19.90, Est GFR (MDRD) Af Amer 22 L, Est GFR (MDRD) Non-Af 18 L, BUN/Creatinine Ratio 9.7 L, Glucose 137 H, Calcium 8.0 L, Total Bilirubin 0.50, AST 21, ALT 15 L, Alkaline Phosphatase 203 H, Total Protein 7.3, Albumin 2.3 L, Globulin 5.0 H, Albumin/Globulin Ratio 0.5 L Micro: Microbiology 02/18/23 18:04 Mucosa - Nasopharyngeal Coronavirus COVID-19 PCR - Final 02/18/23 18:04 Mucosa - Nasopharyngeal Respiratory Panel (PCR) - Final 02/18/23 15:48 Nasal Secretion SARS-CoV-2 & FLU Antigen (Rapid) - Final Radiology Impression Chest X-Ray 02/18/23 15:30 IMPRESSION: Chronic CHF. Electronically Signed: Luis Oneal MD at 16:26 EDT ,
--- NOTE | 2023-02-19 10:52 | PHA.PHARE_ITS ---
Consult Antibiotic Management Pharmacy has been consulted to manage selected antiobiotic: Gentamicin Type of Intervention Type of Consult: New start Suspected Infection Suspected Infection: Other (UTI) Prior Doses of Antibiotics Prior Doses of Antibiotics Received/Current Regimen: Initial gentamicin 380 mg IV dose given 02/19/23 @ 1031 Labs Labs: Sodium 133 mmol/L (136-145) L 02/19/23 03:30 Potassium 4.2 mmol/L (3.5-5.1) 02/19/23 03:30 Chloride 99 mmol/L (98-107) 02/19/23 03:30 Carbon Dioxide 29.0 mmol/L (21.0-32.0) 02/19/23 03:30 Anion Gap 5 (5-15) 02/19/23 03:30 BUN 41 mg/dL (7-18) H 02/19/23 03:30 Creatinine 4.23 mg/dL (0.70-1.30) H 02/19/23 03:30 Est GFR (MDRD) Af Amer 22 mL/min (>60) L 02/19/23 03:30 Est GFR (MDRD) Non-Af 18 mL/min (>60) L 02/19/23 03:30 BUN/Creatinine Ratio 9.7 RATIO (10-20) L 02/19/23 03:30 Glucose 137 mg/dL (74-106) H 02/19/23 03:30 Microbiology Microbiology: Microbiology 02/18/23 18:04 Mucosa - Nasopharyngeal Coronavirus COVID-19 PCR - Final 02/18/23 18:04 Mucosa - Nasopharyngeal Respiratory Panel (PCR) - Final 02/18/23 15:48 Nasal Secretion SARS-CoV-2 & FLU Antigen (Rapid) - Final Dosing Weight Weight used for dosin.5 kg Estimated Creatinine Clearance Estimated Creatinine Clearance: 28 Goal Trough Goal Trough: Other (extended interval gentamicin) Pharmacy Plan for Drug Dosing Pharmacy Plan for Drug Dosing: Initial dose of gentamicin 380 mg IV Q48H with a trough 10 hours after initial d ose. Pharmacy Service will continue to monitor and adjust dosing as required. Follow-Up Labs Follow-Up Labs: Trough: Gentamicin Date/Time Labs Ordered Labs to be done on [date and time ordered]: 02/19/23 @ 2030
[2023-02-19] MEDS: Linezolid 600 MG 600 MG/300 ML BAG 200 MG IV ×2 (11:08→22:00)
[2023-02-19] MEDS: PureFlow B 2K Dialysis Soln 1 BAG 6 BAG PF (12:54)
[2023-02-19] MEDS: 0.9% Normal Saline 1,000 ML IV.SOLN. 1000 ML OPERA.SITE (12:55)
--- NOTE | 2023-02-19 13:05 | CASEMGMT ---
NATHALIA PETERSON Assessment: Face to Face with pt for initial transition planning/care coordination assessment. NATHALIA PETERSON introduced self and role at [facility], pt voices understanding and consents to assessment. Pt is A&O x4 and answers all questions appropriately at this time. Pt lying in bed in no distress, receiving dialysis with oxygen on. Care providers, pharmacy, and demographics verified/updated. Admitting Dx: complicated UTI, recent nephrostomy PCP:[facility] Specialists: Manda, cardio; Justin, uro; Herb, nephro; Mega, pulm; Xavi at [facility]. Pt goes every 3 wks. Preferred Pharmacy: [facility] Insurance: [facility], [facility] Prescription Benefit: yes LNOK: Victor M Hammond, father; Maida Hammond, mother Living Arrangements: Pt lives with parents and 2 siblings in a two story home with a ramp to enter. Pt reports his parents perform all ADL/IADL's for him. Pt denies concerns at home. Transportation: Pt parents provide transportation for pt. DME:ceiling track/lift system, hospital bed with pressure relieving mattress, CPAP, power w/c, lift chair HHC/SNF: Pt has had [facility]HC and [facility]. Pt has been to [facility], [facility] and [facility] which he dc'd from in October. Pt states no concerns with going home at time of dc. Pt parents perform BID dressing changes with aquacel, gauze and ABD. Pt states his wounds are on bilat buttocks. Pt goes to [facility] for dialysis. He states they are going Mon-Fri as they are learning how to do home dialysis. Pt states no further concerns/needs. CM to follow. Advised pt to ask CM if any further question/concerns/needs arise, voices understanding. Pt Goal: Home with resumption of HHC Plan: Home with resumption of HHC, follow for any other needs.
--- NOTE | 2023-02-19 13:31 | PCM.PN.HOSP ---
Reason for Visit Reason for Visit: Diagnoses Sepsis, unspecified organism (02/18/23) End stage renal disease (02/18/23) Urinary tract infection, site not specified (02/18/23) Severe sepsis with septic shock (02/18/23) Subjective Subjective Patient was seen and examined today, he is currently off pressors, he is being seen by nephrology, critical care, and infectious diseases. I talked briefly with infectious diseases about his care. Objective Data Objective Data Vital Signs: Vital Signs Temp Pulse Resp BP Pulse Ox O2 Del Method O2 Flow Rate 98.2 F 91 20 H 98/54 L 99 Nasal Cannula 2 02/19/23 12:45 02/19/23 13:29 02/19/23 13:29 02/19/23 13:29 02/19/23 13:29 02/19/23 13:29 02/19/23 13:29 FiO2 30 02/19/23 04:15 Oxygen Flow Rate (L/min) 2 Oxygen Delivery Method Nasal Cannula Weight: 109.3 kg Body Mass Index (BMI) 44.3 Intake & Output: Intake and Output for Last 24 Hours 02/17/23 02/18/23 02/19/23 23:59 23:59 23:59 Intake Total 1092 / 1192 2804.31 / 2804.31 Balance 1092 / 1192 2804.31 / 2804.31 Lab / Micro Data 02/19/23 03:30 02/19/23 03:30 Labs: Laboratory Results - last 24 hr 02/18/23 15:48: WBC 11.4 H, RBC 4.31 L, Hgb 11.3 L, Hct 38.0 L, MCV 88.2, MCH 26.2 L, MCHC 29.7 L, RDW Std Deviation 55.7 H, RDW Coeff of [place] 17.3 H, Plt Count 313, MPV 9.9, Immature Gran % (Auto) 0.400, Neut % (Auto) 85.1 H, Lymph % (Auto) 8.0 L, [place] % (Auto) 4.1, Eos % (Auto) 1.8, Baso % (Auto) 0.6, Absolute Neuts (auto) 9.7 H, Absolute Lymphs (auto) 0.92, Nucleated RBC % 0, PT 15.2 H, INR 1.2, APTT 39.0 H, Sodium 136, Potassium 4.2, Chloride 97 L, Carbon Dioxide 30.0, Anion Gap 9, BUN 39 H, Creatinine 3.66 H, Est GFR (MDRD) Af Amer 25 L, Est GFR (MDRD) Non-Af 21 L, BUN/Creatinine Ratio 10.7, Glucose 117 H, Lactic Acid 1.6, Calcium 8.6, Total Bilirubin 0.50, AST 31, ALT 20, Alkaline Phosphatase 216 H, Troponin I High Sens 9, Total Protein 8.1, Albumin 2.6 L, Globulin 5.5 H, Albumin/Globulin Ratio 0.5 L 02/18/23 16:10: Urine Color Red, Urine Clarity Turbid, Urine pH 8.0, Ur Specific [place] 1.015, Urine Protein 500 H, Urine Glucose (UA) Normal, Urine Ketones 5 H, Urine Occult Blood 250 H, Urine Nitrite Negative, Urine Bilirubin Negative, Urine Urobilinogen Normal, Ur Leukocyte Esterase 100 H, Urine RBC > 100 SEEN, Urine WBC 25-50 SEEN, Ur Squamous Epith Cells 0 SEEN, Urine Bacteria 1+, Urine Mucus 0 SEEN 02/19/23 03:30: WBC 12.3 H, RBC 3.84 L, Hgb 10.0 L, Hct 34.9 L, MCV 90.9, MCH 26.0 L, MCHC 28.7 L, RDW Std Deviation 56.9 H, RDW Coeff of [place] 17.3 H, Plt Count 297, MPV 10.0, Immature Gran % (Auto) 0.800, Neut % (Auto) 79.8 H, Lymph % (Auto) 11.9 L, [place] % (Auto) 6.4, Eos % (Auto) 0.4, Baso % (Auto) 0.7, Absolute Neuts (auto) 9.8 H, Absolute Lymphs (auto) 1.46, Nucleated RBC % 0, Sodium 133 L, Potassium 4.2, Chloride 99, Carbon Dioxide 29.0, Anion Gap 5, BUN 41 H, Creatinine 4.23 H, Estim Creat Clear Calc 19.90, Est GFR (MDRD) Af Amer 22 L, Est GFR (MDRD) Non-Af 18 L, BUN/Creatinine Ratio 9.7 L, Glucose 137 H, Calcium 8.0 L, Total Bilirubin 0.50, AST 21, ALT 15 L, Alkaline Phosphatase 203 H, Total Protein 7.3, Albumin 2.3 L, Globulin 5.0 H, Albumin/Globulin Ratio 0.5 L Micro: Microbiology 02/18/23 16:10 Urine, Nephrostomy Urine Culture - Preliminary Culture exhibits no growth. 02/18/23 18:04 Mucosa - Nasopharyngeal Coronavirus COVID-19 PCR - Final 02/18/23 18:04 Mucosa - Nasopharyngeal Respiratory Panel (PCR) - Final 02/18/23 15:48 Nasal Secretion SARS-CoV-2 & FLU Antigen (Rapid) - Final Radiography Diagnostic Testing: Radiology Impression Chest X-Ray 02/18/23 15:30 IMPRESSION: Chronic CHF. Electronically Signed: Luis Oneal MD at 16:26 EDT , Abdomen/Pelvis CT 02/19/23 09:31 IMPRESSION: Right cutaneous nephrostomy catheter with the nonobstructive calculi in the lower pole calyx of the right kidney. No evidence of hydronephrosis. Stable cortical thinning in the left kidney. Stable changes in the posterior buttocks as described. Electronically Signed: Jesus Alberto Munoz MD at 10:30 EDT , Physical Exam Const alert, oriented x3 and no apparent distress General Appearance: cooperative, well kempt and well developed Orientation / Consciousness: awake, oriented to person, oriented to place and oriented to time HEENT normocephalic, head/scalp atraumatic and moist oral mucous membranes Eyes PERRL, EOMs intact bilaterally and conjunctivae normal Neck supple, no JVD and thyroid normal General: trachea midline Resp normal respiratory effort, no retractions, no use of accessory muscles and clear to auscultation bilaterally Auscultation: Negative for rales, rhonchi or wheezes Cardio regular rate, regular rhythm, S1 normal heart sound, S2 normal heart sound, no murmurs, no rub and no gallops GI normal to inspection, nondistended, normoactive bowel sounds, soft to palpation, non-tender and non-distended Extremity Extremity Narrative: Generalized stature she is noted in the lower extremities Neuro oriented x3 and CN's II-XII intact bilaterally Neuro Narrative: Patient has paraplegia Sensorium / Orientation: awake, alert, oriented to person, oriented to place and oriented to time Speech: speech normal Psych affect normal Assessment & Plan Assessment/Plan (1) Septic shock: PLAN: Plan #1 septic shock etiology unclear-patient is being seen by infectious diseases, he remains on IV antibiotics at this time, patient's blood culture is pending, his urine culture exhibits no growth at this time. Patient is currently on cefepime gentamicin, and linezolid #2 end-stage renal disease requiring dialysis-patient is being dialyzed today #3 spina bifida with paraplegia-complicates care, medical course, recovery, and prognosis #4 chronic respiratory failure with hypoxia and hypercapnia-patient requires use of ventilator at night and during the day as needed #5 secondary pulmonary arterial hypertension-complicates care, medical course, recovery, and prognosis #6 chronic pressure injuries-wound care nurse will see the patient today, I did not examine his ischial and sacral area Total clinical time spent by myself addressing the patient's medical issues, reviewing all of his data, and collaborating with patient's care team: 35 minutes Charges/Coding Visit Charges Inpatient E&M: 68567 Subs Hosp L2
--- NOTE | 2023-02-19 13:45 | CASEMGMT ---
Discharge Planning Resumption order sent to [facility] via [facility]. Kiera Miranda, Discharge Planning Asst.
--- NOTE | 2023-02-19 14:49 | PCM.CONS.R ---
Assessment & Plan Assessment/Plan (1) ESRD (end stage renal disease): (2) Septic shock: PLAN: Plan This is a very pleasant 27-year-old male with past medical history significant for ESRD on hemodialysis via AV fistula, history of spina bifida status post SMELTER CHARGER shunt (nonfunctional) with paraplegic immobility syndrome, chronic indwelling catheter followed by urologist at [facility] with history of nephrolithiasis with stents in past, chronic right nephrostomy tube which was recently changed few days ago by IR at [facility], chronic systolic heart failure, anemia of chronic disease who presented to the emergency room yesterday as at end of dialysis session patient became hypotensive, tachycardic with fever; admitted for septic shock with unclear etiology at this time, UTI and pyelonephritis. Nephrology consulted for hemodialysis needs. Patient is currently in transition from in center hemodialysis to at home hemodialysis. He will dialyze today and attempt fluid removal as patient/blood pressure tolerates. Patient's outpatient hemodialysis schedule Wednesday, Wednesday, , Wednesday. Patient EDW around 103 kg. Will plan for next hemodialysis session Wednesday unless acute need arises. CXR reviewed. He does have a history of chronic hypotension and is on midodrine. Blood pressures have improved, he is off Levophed drip and on oral midodrine at this time. ID consulted for antibiotics, patient is currently receiving cefepime, linezolid and gentamicin IV. Patient has history of anemia of chronic disease, current hemoglobin acceptable at 10. We will monitor hemoglobin trends. Further orders forthcoming as hospitalization evolves, thank you for allowing us to participate in the care of Mr. Damian. HPI Consult Data Date of Consult: 02/19/23 HPI Narrative HPI Narrative: OKSANA DAMIAN, is a 27 M with past medical history significant for ESRD on hemodialysis via AV fistula, history of spina bifida status post SMELTER CHARGER shunt (nonfunctional) with paraplegic immobility syndrome, chronic indwelling catheter followed by urologist at [facility] with history of nephrolithiasis with stents in past, chronic right nephrostomy tube which was recently changed few days ago by IR at [facility], chronic systolic heart failure, anemia of chronic disease who presented to the emergency room yesterday at end of dialysis session after patient became hypotensive, tachycardic with fever. Patient was admitted for further evaluation and treatment. Patient is compliant with dialysis. Patient and his family are currently in training to transition from in center hemodialysis to home hemodialysis. Patient reports he is feeling better today. Reports good appetite. 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, stage 3 Pressure ulcer Right-sided heart failure Secondary pulmonary arterial hypertension Sleep apnea Spina bifida Systolic CHF Umbilical hernia Home Medications bisacodyl 10 mg rectal suppository 10 mg DE DAILY PRN Constipation 09/17/22 [History Last Taken Unknown] dextrose 40 % oral gel (Glucose Gel) 15 g PO Q15M PRN Hypoglycemia 09/17/22 [History Last Taken Unknown] gabapentin 100 mg capsule 100 mg PO DAILY 09/17/22 [History Last Taken Unknown] hydrocortisone 10 mg tablet 15 mg PO BID 09/17/22 [History Last Taken Unknown] loperamide 2 mg tablet 2 mg PO Q6H PRN Diarrhea 09/17/22 [History Last Taken Unknown] magnesium hydroxide 400 mg/5 mL oral suspension (Milk of Magnesia) 400 mg PO DAILY PRN Constipation 09/17/22 [History Last Taken Unknown] midodrine 10 mg tablet 10 mg PO .QID 09/17/22 [History Last Taken Unknown] sertraline 25 mg tablet 25 mg PO DAILY 09/17/22 [History Last Taken Unknown] sodium phosphates 19 gram-7 gram/118 mL enema (Fleet Enema) 118 ml DE DAILY PRN Constipation 09/17/22 [History Last Taken Unknown] trazodone 100 mg tablet 100 mg PO QHS 09/17/22 [History Last Taken Unknown] simethicone 80 mg chewable tablet (Gas Relief (simethicone)) 80 mg PO BID PRN gi upset 10/28/22 [History Last Taken Unknown] doxycycline monohydrate 100 mg tablet 100 mg PO BID 02/18/23 [History Last Taken Unknown] ferrous gluconate 240 mg (27 mg iron) tablet (Ferate) 240 mg PO BID 02/18/23 [History Last Taken Unknown] Allergy/AdvReac Type Severity Reaction Status Date / Time ampicillin Allergy rash Verified 02/18/23 14:20 daptomycin Allergy Hives Verified 02/18/23 14:20 fentanyl Allergy Rash Verified 02/18/23 14:20 latex Allergy Hives Verified 02/18/23 14:20 meropenem Allergy rash Verified 02/18/23 14:20 morphine Allergy Hives Verified 02/18/23 14:20 sulbactam [From Unasyn] Allergy Hives Verified 02/18/23 14:20 vancomycin Allergy Hives Verified 02/18/23 14:20 Family History Grandfather Heart disease Father Hypertension Mother Hyperlipidemia Surgical History History of back surgery History of foot surgery History of kidney surgery History of ventriculoperitoneal shunting S/P cutaneous-vesicostomy S/P ureteral stent placement Status post laser lithotripsy of ureteral calculus Social History household members: family Smoking Status: Never smoker second hand exposure: Yes alcohol intake: never substance use type: does not use ROS ROS Narrative As in HPI past medical history Physical Exam Narrative Alert and oriented x3, no apparent distress S1, S2, RRR Lung sounds clear anteriorly, diminished breath sounds Abdomen soft, nontender No edema Left forearm AV fistula positive thrill and bruit Lab / Micro Data 02/19/23 03:30 02/19/23 03:30 Labs: Laboratory Results - last 24 hr 02/18/23 15:48: WBC 11.4 H, RBC 4.31 L, Hgb 11.3 L, Hct 38.0 L, MCV 88.2, MCH 26.2 L, MCHC 29.7 L, RDW Std Deviation 55.7 H, RDW Coeff of [place] 17.3 H, Plt Count 313, MPV 9.9, Immature Gran % (Auto) 0.400, Neut % (Auto) 85.1 H, Lymph % (Auto) 8.0 L, [place] % (Auto) 4.1, Eos % (Auto) 1.8, Baso % (Auto) 0.6, Absolute Neuts (auto) 9.7 H, Absolute Lymphs (auto) 0.92, Nucleated RBC % 0, PT 15.2 H, INR 1.2, APTT 39.0 H, Sodium 136, Potassium 4.2, Chloride 97 L, Carbon Dioxide 30.0, Anion Gap 9, BUN 39 H, Creatinine 3.66 H, Est GFR (MDRD) Af Amer 25 L, Est GFR (MDRD) Non-Af 21 L, BUN/Creatinine Ratio 10.7, Glucose 117 H, Lactic Acid 1.6, Calcium 8.6, Total Bilirubin 0.50, AST 31, ALT 20, Alkaline Phosphatase 216 H, Troponin I High Sens 9, Total Protein 8.1, Albumin 2.6 L, Globulin 5.5 H, Albumin/Globulin Ratio 0.5 L 02/18/23 16:10: Urine Color Red, Urine Clarity Turbid, Urine pH 8.0, Ur Specific [place] 1.015, Urine Protein 500 H, Urine Glucose (UA) Normal, Urine Ketones 5 H, Urine Occult Blood 250 H, Urine Nitrite Negative, Urine Bilirubin Negative, Urine Urobilinogen Normal, Ur Leukocyte Esterase 100 H, Urine RBC > 100 SEEN, Urine WBC 25-50 SEEN, Ur Squamous Epith Cells 0 SEEN, Urine Bacteria 1+, Urine Mucus 0 SEEN 02/19/23 03:30: WBC 12.3 H, RBC 3.84 L, Hgb 10.0 L, Hct 34.9 L, MCV 90.9, MCH 26.0 L, MCHC 28.7 L, RDW Std Deviation 56.9 H, RDW Coeff of [place] 17.3 H, Plt Count 297, MPV 10.0, Immature Gran % (Auto) 0.800, Neut % (Auto) 79.8 H, Lymph % (Auto) 11.9 L, [place] % (Auto) 6.4, Eos % (Auto) 0.4, Baso % (Auto) 0.7, Absolute Neuts (auto) 9.8 H, Absolute Lymphs (auto) 1.46, Nucleated RBC % 0, Sodium 133 L, Potassium 4.2, Chloride 99, Carbon Dioxide 29.0, Anion Gap 5, BUN 41 H, Creatinine 4.23 H, Estim Creat Clear Calc 19.90, Est GFR (MDRD) Af Amer 22 L, Est GFR (MDRD) Non-Af 18 L, BUN/Creatinine Ratio 9.7 L, Glucose 137 H, Calcium 8.0 L, Total Bilirubin 0.50, AST 21, ALT 15 L, Alkaline Phosphatase 203 H, Total Protein 7.3, Albumin 2.3 L, Globulin 5.0 H, Albumin/Globulin Ratio 0.5 L Micro: Microbiology 02/18/23 16:10 Urine, Nephrostomy Urine Culture - Preliminary Culture exhibits no growth. 02/18/23 18:04 Mucosa - Nasopharyngeal Coronavirus COVID-19 PCR - Final 02/18/23 18:04 Mucosa - Nasopharyngeal Respiratory Panel (PCR) - Final 02/18/23 15:48 Nasal Secretion SARS-CoV-2 & FLU Antigen (Rapid) - Final Radiology Impression Chest X-Ray 02/18/23 15:30 IMPRESSION: Chronic CHF. Electronically Signed: Luis Oneal MD at 16:26 EDT , Abdomen/Pelvis CT 02/19/23 09:31 IMPRESSION: Right cutaneous nephrostomy catheter with the nonobstructive calculi in the lower pole calyx of the right kidney. No evidence of hydronephrosis. Stable cortical thinning in the left kidney. Stable changes in the posterior buttocks as described. Electronically Signed: Jesus Alberto Munoz MD at 10:30 EDT ,
--- NOTE | 2023-02-19 15:03 | CON.PCM_ITS ---
Consult Date of Consult: 02/19/23 Reason for Consult Chronic nephrostomy tube 27-year-old male with spina bifida who is on end-stage renal disease multiple medical problems who has a chronic right nephrostomy tube is draining. Recently the two was changed and looks like he's was admitted for probably bacteremia after tube changed. 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 Review the CAT scan and the right nephrostomy tube is in good position. Given the fact that he's on end-stage renal dialysis with a chronically infected right kidney and the stone some could consider offering the patient intervention such as a simple nephrectomy but this would have to be done at a tertiary care center patient is too ill to consider this at [facility]. No intervention is necessary from my standpoint the prostate tubes in good position probably just needs a antibiotics and resusitation call with questions.
[2023-02-19] MEDS: DAKIN'S SOL HALF STRENGTH (=0.25%) 1 APPLIC TOPICAL (15:48)
--- NOTE | 2023-02-19 16:44 | WOUNDNOTE ---
wound photo: left ischium
--- NOTE | 2023-02-19 16:51 | WOUNDNOTE ---
wound photo: right ischium
[2023-02-19] MEDS: Influenza Virus Vac Quad 23-24 60 MCG/0.5 ML SYRINGE IM (17:50)
[2023-02-19] MEDS: Juven (unflavored) Packet 1 PACKET PO (17:51)
[2023-02-19] MEDS: traZODone 100 MG Tablet PO (21:21)
[2023-02-19] MEDS: Cefepime HCl 1 GM in 0.9% Normal Saline (50mL MB+) 50 ML IV (21:22)
[2023-02-20] VITALS (16 sets, daily range): BP systolic 113–150; BP diastolic 72–86; PULSE 66–93; RESP 14–25; TEMP 36.2–37; O2SAT 94–100; BMI 44.5
--- NOTE | 2023-02-20 03:30 | PCM.RX.CS ---
Consult Antibiotic Management Pharmacy has been consulted to manage selected antiobiotic: Gentamicin Type of Intervention Type of Consult: Follow-up Labs Labs: Sodium 133 mmol/L (136-145) L 02/19/23 03:30 Potassium 4.2 mmol/L (3.5-5.1) 02/19/23 03:30 Chloride 99 mmol/L (98-107) 02/19/23 03:30 Carbon Dioxide 29.0 mmol/L (21.0-32.0) 02/19/23 03:30 Anion Gap 5 (5-15) 02/19/23 03:30 BUN 41 mg/dL (7-18) H 02/19/23 03:30 Creatinine 4.23 mg/dL (0.70-1.30) H 02/19/23 03:30 Est GFR (MDRD) Af Amer 22 mL/min (>60) L 02/19/23 03:30 Est GFR (MDRD) Non-Af 18 mL/min (>60) L 02/19/23 03:30 BUN/Creatinine Ratio 9.7 RATIO (10-20) L 02/19/23 03:30 Glucose 137 mg/dL (74-106) H 02/19/23 03:30 Gentamicin Trough 8.0 ug/mL (<1.0) H* 02/19/23 20:35 Microbiology Microbiology: Microbiology 02/18/23 16:10 Urine, Nephrostomy Urine Culture - Preliminary Culture exhibits no growth. 02/18/23 18:04 Mucosa - Nasopharyngeal Coronavirus COVID-19 PCR - Final 02/18/23 18:04 Mucosa - Nasopharyngeal Respiratory Panel (PCR) - Final 02/18/23 15:48 Nasal Secretion SARS-CoV-2 & FLU Antigen (Rapid) - Final Pharmacy Plan for Drug Dosing Pharmacy Plan for Drug Dosing: Pharmacy Service will continue to monitor and adjust dosing as required. RANDOM GENT LEVEL 8. PER DOSING NOMOGRAM, CHANGE TO 380MG Q36H AND FOLLOW UP RANDOM LEVEL IN 10 HOURS Follow-Up Labs Follow-Up Labs: Trough: Gentamicin Date/Time Labs Ordered Labs to be done on [date and time ordered]: 02/21 @ 0830
[2023-02-20] MEDS: 0.9% Saline Lock 10 ML Syringe IV (06:06)
[2023-02-20] MEDS: Hydrocortisone Sod Succinate 100 MG/2 ML Vial IV ×3 (06:06→20:14)
--- NOTE | 2023-02-20 06:09 | PN.CC_ITS ---
Assessment & Plan Assessment/Plan (1) Septic shock: PLAN: Plan RECOMMENDATIONS: 1. Continue antimicrobials per ID recommendations. 2. Continue scheduled midodrine and stress dose steroids. Start to wean stress dose steroids beginning tomorrow if hemodynamically stable. 3. Nephrology following to assist with hemodialysis needs. 4. Continue PAP support with sleep. 5. The patient is medically stable for transfer out of the intensive care unit. IMPRESSIONS: 1. Undifferentiated shock Most likely multifactorial in etiology with concern for underlying sepsis, intravascular volume depletion and adrenal insufficiency contributing. Pulmonary and/or genitourinary sources of infection are suspected. The patient has been adequately volume resuscitated. He does have a baseline low blood pressure with systolics in the 90 to 110 mmHg range. The patient was maintained transiently on Levophed to maintain hemodynamic stability. He has since been weaned from vasopressor support and remains hemodynamically stable. Plan to con tinue scheduled midodrine and stress dose steroids. If the patient remains hemodynamically stable over the next 24 hours, his stress dose steroids will be weaned. The patient will be continued on antimicrobials per ID recommendations. 2. End-stage renal disease on hemodialysis Nephrology is following to assist with hemodialysis management. 3. History of adrenal insufficiency with persistent/chronic hypotension Continue scheduled midodrine. Continue stress dose steroids as ordered. 4. History of congestive heart failure/anemia/spina bifida with paraplegia/obesity/sleep apnea Complicates care, management, recovery and prognosis. Continue PAP therapy with sleep. This note was generated with [employer] dictation software. It may contain incorrect words, spelling, and punctuation that were not noted in checking the note before signing. Subjective Subjective The patient was seen and examined at the bedside this morning. Events from the last 24 hours have been reviewed. The patient is currently afebrile, hemodynamically stable and maintaining appropriate oxygen saturations on 2 L/min via nasal cannula. The patient has been weaned off of Levophed since yesterday. He is documented to be overall net +3 L for the hospitalization. The patient feels quite well this morning and has no specific complaints. Objective Data Objective Data The patient's most recent lab work, culture data and imaging studies have all been personally reviewed. Blood and urine cultures are pending. Vital Signs: Vital Signs Temp Pulse Resp BP Pulse Ox O2 Del Method O2 Flow Rate 97.6 F L 77 18 150/86 H 97 Nasal Cannula 2 02/20/23 04:00 02/20/23 05:00 02/20/23 05:00 02/20/23 05:00 02/20/23 05:00 02/20/23 05:00 02/20/23 05:00 FiO2 30 02/20/23 04:00 Oxygen Flow Rate (L/min) 2 Oxygen Delivery Method Nasal Cannula Weight: 241 lb 13.553 oz Body Mass Index (BMI) 44.5 Intake & Output: Intake and Output for Last 24 Hours 02/18/23 02/19/23 02/20/23 23:59 23:59 23:59 Intake Total 1092 / 1192 3645.81 / 3645.81 9.5 / 9.5 Output Total 1695 / 1700 15 15 Balance 1092 / 1192 1950.81 / 1945.81 -5.5 / -5.5 Lab / Micro Data Attestation: I reviewed the patient's lab results. 02/19/23 03:30 02/19/23 03:30 Labs: Laboratory Results - last 24 hr 02/19/23 20:35: Gentamicin Trough 8.0 H* Micro: Microbiology 02/18/23 16:10 Urine, Nephrostomy Urine Culture - Preliminary Culture exhibits no growth. 02/18/23 18:04 Mucosa - Nasopharyngeal Coronavirus COVID-19 PCR - Final 02/18/23 18:04 Mucosa - Nasopharyngeal Respiratory Panel (PCR) - Final 02/18/23 15:48 Nasal Secretion SARS-CoV-2 & FLU Antigen (Rapid) - Final Radiography Diagnostic Testing: Radiology Impression Abdomen/Pelvis CT 02/19/23 09:31 IMPRESSION: Right cutaneous nephrostomy catheter with the nonobstructive calculi in the lower pole calyx of the right kidney. No evidence of hydronephrosis. Stable cortical thinning in the left kidney. Stable changes in the posterior buttocks as described. Electronically Signed: Jesus Alberto Munoz MD at 10:30 EDT , Physical Exam Const alert and no apparent distress Constitutional Narrative: Obese. General Appearance: cooperative HEENT normocephalic and head/scalp atraumatic Eyes PERRL, EOMs intact bilaterally and conjunctivae normal Neck supple General: trachea midline Chest inspection of chest normal Resp normal respiratory effort Auscultation: diminished lung sounds; Negative for rales, rhonchi or wheezes Cardio regular rate and regular rhythm GI soft to palpation and non-tender Extremity General Extremity: edema; Negative for clubbing Skin Skin Narrative: Venous stasis dermatitis Neuro oriented x3 Neuro Narrative: Baseline paraplegia Psych cooperative and affect normal Charges/Coding Visit Charges Inpatient E&M: 97038 Subs Hosp L3
[2023-02-20] MEDS: Budesonide Respules 0.5 MG/2 ML AMPUL.NEB. INHALATION ×2 (07:00→19:00)
[2023-02-20] MEDS: Juven (unflavored) Packet 1 PACKET PO ×2 (08:10→17:36)
[2023-02-20] MEDS: Miconazole Nitrate 43 GM Bottle 1 APPLIC TOPICAL ×2 (08:10→20:22)
[2023-02-20] MEDS: Midodrine HCl 5 MG Tablet 10 MG PO ×2 (08:11→15:21)
[2023-02-20] MEDS: Menthol/Lanolin/Calamine/Znox 113 GM Tube 1 APPLIC TOPICAL ×5 (08:11→20:15)
[2023-02-20] MEDS: Gabapentin 100 MG Capsule PO (08:26)
--- NOTE | 2023-02-20 09:59 | PCM.PN.HOSP ---
Reason for Visit Reason for Visit: Diagnoses Sepsis, unspecified organism (02/18/23) End stage renal disease (02/18/23) Urinary tract infection, site not specified (02/18/23) Severe sepsis with septic shock (02/18/23) Subjective Subjective Patient was seen and examined today, he is not requiring any pressors, his blood pressure is good today, he has no complaints of any fevers or chills. Patient's blood culture still pending at the time of this dictation, preliminary urine culture shows no growth. Objective Data Objective Data Vital Signs: Vital Signs Temp Pulse Resp BP Pulse Ox O2 Del Method O2 Flow Rate 97.5 F L 85 16 131/82 H 94 Nasal Cannula 2 02/20/23 08:00 02/20/23 09:00 02/20/23 08:00 02/20/23 08:00 02/20/23 09:00 02/20/23 09:00 02/20/23 09:00 FiO2 30 02/20/23 04:00 Oxygen Flow Rate (L/min) 2 Oxygen Delivery Method Nasal Cannula Weight: 109.7 kg Body Mass Index (BMI) 44.5 Intake & Output: Intake and Output for Last 24 Hours 02/18/23 02/19/23 02/20/23 23:59 23:59 23:59 Intake Total 1092 / 1192 3645.81 / 3645.81 9.5 / 9.5 Output Total 1695 / 1700 15 / 15 Balance 1092 / 1192 1950.81 / 1945.81 -5.5 / -5.5 Lab / Micro Data 02/19/23 03:30 02/19/23 03:30 Labs: Laboratory Results - last 24 hr 02/19/23 20:35: Gentamicin Trough 8.0 H* Micro: Microbiology 02/18/23 15:48 Blood Culture (Wb) - Venous Blood Culture - Preliminary 02/18/23 16:10 Urine, Nephrostomy Urine Culture - Preliminary Culture exhibits no growth. 02/18/23 18:04 Mucosa - Nasopharyngeal Coronavirus COVID-19 PCR - Final 02/18/23 18:04 Mucosa - Nasopharyngeal Respiratory Panel (PCR) - Final 02/18/23 15:48 Nasal Secretion SARS-CoV-2 & FLU Antigen (Rapid) - Final Radiography Diagnostic Testing: Radiology Impression Abdomen/Pelvis CT 02/19/23 09:31 IMPRESSION: Right cutaneous nephrostomy catheter with the nonobstructive calculi in the lower pole calyx of the right kidney. No evidence of hydronephrosis. Stable cortical thinning in the left kidney. Stable changes in the posterior buttocks as described. Electronically Signed: Jesus Alberto Munoz MD at 10:30 EDT , Physical Exam Narrative alert, oriented x3 and no apparent distress General Appearance: cooperative, well kempt and well developed Orientation / Consciousness: awake, oriented to person, oriented to place and oriented to time HEENT normocephalic, head/scalp atraumatic and moist oral mucous membranes Eyes PERRL, EOMs intact bilaterally and conjunctivae normal Neck supple, no JVD and thyroid normal General: trachea midline Resp normal respiratory effort, no retractions, no use of accessory muscles and clear to auscultation bilaterally Auscultation: Negative for rales, rhonchi or wheezes Cardio regular rate, regular rhythm, S1 normal heart sound, S2 normal heart sound, no murmurs, no rub and no gallops GI normal to inspection, nondistended, normoactive bowel sounds, soft to palpation, non-tender and non-distended Extremity Extremity Narrative: Generalized stature she is noted in the lower extremities Neuro oriented x3 and CN's II-XII intact bilaterally Neuro Narrative: Patient has paraplegia Sensorium / Orientation: awake, alert, oriented to person, oriented to place and oriented to time Speech: speech normal Psych affect normal Assessment & Plan Assessment/Plan (1) Septic shock: PLAN: Plan #1 septic shock etiology unclear-patient is being seen by infectious diseases, he remains on IV antibiotics at this time, patient's blood culture is pending, his urine culture exhibits no growth at this time. Patient is currently on cefepime gentamicin, and linezolid, patient appears stable for transfer to PCU #2 end-stage renal disease requiring dialysis-nephrology is participating in his care #3 spina bifida with paraplegia-complicates care, medical course, recovery, and prognosis #4 chronic respiratory failure with hypoxia and hypercapnia-patient requires use of ventilator at night and during the day as needed #5 secondary pulmonary arterial hypertension-complicates care, medical course, recovery, and prognosis #6 chronic pressure injuries-wound care nurse saw the patient yesterday, I did not examine his ischial and sacral area for wounds Total clinical time spent by myself addressing the patient's medical issues, reviewing all of his data, and collaborating with patient's care team: 35 minutes Charges/Coding Visit Charges Inpatient E&M: 47007 Subs Hosp L2
[2023-02-20] MEDS: Linezolid 600 MG 600 MG/300 ML BAG 200 MG IV ×2 (10:29→22:14)
[2023-02-20] MEDS: DAKIN'S SOL HALF STRENGTH (=0.25%) 1 APPLIC TOPICAL (10:31)
--- NOTE | 2023-02-20 19:16 | PCM.PN.REN ---
Objective Data Objective Data Vital Signs: Vital Signs Temp Pulse Resp BP Pulse Ox O2 Del Method O2 Flow Rate 97.4 F L 84 21 H 125/76 H 97 Nasal Cannula 2 02/20/23 12:00 02/20/23 12:00 02/20/23 12:00 02/20/23 12:00 02/20/23 17:00 02/20/23 17:00 02/20/23 17:00 FiO2 30 02/20/23 04:00 Oxygen Flow Rate (L/min) 2 Oxygen Delivery Method Nasal Cannula Weight: 109.7 kg Body Mass Index (BMI) 44.5 Intake & Output: Intake and Output for Last 24 Hours 02/18/23 02/19/23 02/20/23 23:59 23:59 23:59 Intake Total 1092 / 1192 3645.81 / 3645.81 909.5 / 909.5 Output Total 1695 / 1700 65 / 65 Balance 1092 / 1192 1950.81 / 1945.81 844.5 / 844.5 Lab / Micro Data 02/19/23 03:30 02/19/23 03:30 Labs: Laboratory Results - last 24 hr 02/19/23 20:35: Gentamicin Trough 8.0 H* Micro: Microbiology 02/18/23 15:48 Blood Culture (Wb) - Venous Blood Culture - Preliminary 02/18/23 16:10 Urine, Nephrostomy Urine Culture - Preliminary Culture exhibits no growth. 02/18/23 18:04 Mucosa - Nasopharyngeal Coronavirus COVID-19 PCR - Final 02/18/23 18:04 Mucosa - Nasopharyngeal Respiratory Panel (PCR) - Final 02/18/23 15:48 Nasal Secretion SARS-CoV-2 & FLU Antigen (Rapid) - Final Physical Exam Narrative Alert and oriented x3, no apparent distress S1, S2, RRR Lung sounds clear anteriorly, diminished breath sounds Abdomen soft, nontender No edema Left forearm AV fistula positive thrill and bruit Assessment & Plan Assessment/Plan (1) ESRD (end stage renal disease): (2) Septic shock: PLAN: Plan This is a very pleasant 27-year-old male with past medical history significant for ESRD on hemodialysis via AV fistula, history of 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 Nephrology consulted for hemodialysis needs. ESRD. Patient is currently in transition from in center hemodialysis to at home hemodialysis after discharge. He dialyze yesterday and had fluid removal as patient/blood pressure tolerates. No need for dialysis today. While admitted, we will continue hemodialysis schedule Wednesday, Wednesday, , Wednesday. Patient EDW around 103 kg. Will plan for next hemodialysis session 02/22/23 unless acute need arises. Septic shock. He does have a history of chronic hypotension and is on midodrine. Blood pressures have improved, he is off Levophed drip and on oral midodrine at this time. ID consulted for antibiotics, patient is currently receiving cefepime, linezolid and gentamicin IV. Anemia in CKD. Patient has history of anemia of chronic disease, current hemoglobin acceptable at 10. We will monitor hemoglobin trends. Further orders forthcoming as hospitalization evolves, thank you for allowing us to participate in the care of Mr. Hammond.
--- NOTE | 2023-02-20 20:06 | PCM.PN.REN ---
Subjective Subjective Following for ESRD. The patient denies chest pain, shortness of breath, or nausea today. He tolerated dialysis well yesterday without cramping. Objective Data Objective Data Vital Signs: Vital Signs Temp Pulse Resp BP Pulse Ox O2 Del Method O2 Flow Rate 97.8 F 90 18 123/74 H 97 Nasal Cannula 2 02/20/23 19:00 02/20/23 19:00 02/20/23 19:00 02/20/23 19:00 02/20/23 19:00 02/20/23 19:00 02/20/23 19:00 FiO2 30 02/20/23 04:00 Oxygen Flow Rate (L/min) 2 Oxygen Delivery Method Nasal Cannula Weight: 109.7 kg Body Mass Index (BMI) 44.5 Intake & Output: Intake and Output for Last 24 Hours 02/18/23 02/19/23 02/20/23 23:59 23:59 23:59 Intake Total 1092 / 1192 3645.81 / 3645.81 909.5 / 909.5 Output Total 1695 / 1700 65 / 65 Balance 1092 / 1192 1950.81 / 1945.81 844.5 / 844.5 Lab / Micro Data 02/19/23 03:30 02/19/23 03:30 Labs: Laboratory Results - last 24 hr 02/19/23 20:35: Gentamicin Trough 8.0 H* Micro: Microbiology 02/18/23 15:48 Blood Culture (Wb) - Venous Blood Culture - Preliminary 02/18/23 16:10 Urine, Nephrostomy Urine Culture - Preliminary Culture exhibits no growth. 02/18/23 18:04 Mucosa - Nasopharyngeal Coronavirus COVID-19 PCR - Final 02/18/23 18:04 Mucosa - Nasopharyngeal Respiratory Panel (PCR) - Final 02/18/23 15:48 Nasal Secretion SARS-CoV-2 & FLU Antigen (Rapid) - Final Physical Exam Narrative Alert and oriented x3, no apparent distress S1, S2, RRR Lung sounds clear anteriorly, diminished breath sounds Abdomen soft, nontender No edema Left forearm AV fistula positive thrill and bruit Assessment & Plan Assessment/Plan (1) ESRD (end stage renal disease): (2) Septic shock: PLAN: Plan Impression/Plan: This is a very pleasant 27-year-old male with past medical history significant for ESRD on hemodialysis via AV fistula, history of 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 with history of nephrolithiasis with stents in past, chronic right nephrostomy tube which was recently changed few days ago by IR at [facility], chronic systolic heart failure, anemia of chronic disease who presented to the emergency room yesterday as at end of dialysis session patient became hypotensive, tachycardic with fever; admitted for septic shock with unclear etiology at this time, UTI and pyelonephritis. Nephrology consulted for hemodialysis needs. ESRD. Patient is currently in transition from in center hemodialysis to at home hemodialysis after discharge. He dialyze yesterday and had fluid removal as patient/blood pressure tolerates. No need for dialysis today. While admitted, we will continue hemodialysis schedule Wednesday, Wednesday, , Wednesday. Patient EDW around 103 kg. Will plan for next hemodialysis session 02/22/23 unless acute need arises. Septic shock. He does have a history of chronic hypotension and is on midodrine. Blood pressures have improved, he is off Levophed drip and on oral midodrine at this time. ID consulted for antibiotics, patient is currently receiving cefepime, linezolid and gentamicin IV. Anemia in CKD. Patient has history of anemia of chronic disease, current hemoglobin acceptable at 10. We will monitor hemoglobin trends. Further orders forthcoming as hospitalization evolves, thank you for allowing us to participate in the care of Mr. Hammond.
[2023-02-20] MEDS: Cefepime HCl 1 GM in 0.9% Normal Saline (50mL MB+) 50 ML IV (20:14)
[2023-02-20] MEDS: traZODone 100 MG Tablet PO (22:14)
[2023-02-21] VITALS (11 sets, daily range): BP systolic 114–120; BP diastolic 72–79; PULSE 60–94; RESP 12–24; TEMP 36.2–36.6; O2SAT 92–100; BMI 44.6
[2023-02-21] MEDS: Hydrocortisone Sod Succinate 100 MG/2 ML Vial IV ×2 (05:09→08:15)
--- NOTE | 2023-02-21 05:49 | PN.CC_ITS ---
Assessment & Plan Assessment/Plan (1) Septic shock: PLAN: Plan RECOMMENDATIONS: 1. Continue antimicrobials per ID recommendations. 2. Continue scheduled midodrine and continue to wean stress dose steroids as ordered. 3. Nephrology following to assist with hemodialysis needs. 4. Continue PAP support with sleep. 5. We will sign off from a critical care perspective. The patient should follow-up with Dr. Ayoub on April 29, as scheduled. IMPRESSIONS: 1. Undifferentiated shock Most likely multifactorial in etiology with concern for underlying sepsis, intravascular volume depletion and adrenal insufficiency contributing. Pulmonary and/or genitourinary sources of infection are suspected. The patient has been adequately volume resuscitated. He does have a baseline low blood pressure with systolics in the 90 to 110 mmHg range. The patient was maintained transiently on Levophed to maintain hemodynamic stability. He has since been weaned from vasopressor support and remains hemodynamically stable. Plan to continue scheduled midodrine, with ongoing weaning of stress dose steroids. Continue antimicrobials per ID recommendations. 2. End-stage renal disease on hemodialysis Nephrology is following to assist with hemodialysis management. 3. History of adrenal insufficiency with persistent/chronic hypotension Continue scheduled midodrine. Continue to wean stress dose steroids as ordered. 4. History of congestive heart failure/anemia/spina bifida with paraplegia/obesity/sleep apnea Complicates care, management, recovery and prognosis. Continue PAP therapy with sleep. The patient is scheduled to follow-up with Dr. Ayoub in the pulmonary medicine clinic on April 29. This note was generated with [employer] dictation software. It may contain incorrect words, spelling, and punctuation that were not noted in checking the note before signing. Subjective Subjective The patient was seen and examined at the bedside this morning. Events from the last 24 hours have been reviewed. The patient is currently afebrile, hemodynamically stable and maintaining appropriate oxygen saturations on 2 L/min via nasal cannula. The patient has remained compliant with the use of nocturnal PAP therapy. No overnight issues were identified. Objective Data Objective Data The patient's most recent lab work, culture data and imaging studies have all been personally reviewed. Blood and urine cultures have not demonstrated any growth to date. Vital Signs: Vital Signs Temp Pulse Resp BP Pulse Ox O2 Del Method O2 Flow Rate 97.3 F L 60 16 118/75 94 CPAP 2 02/21/23 04:00 02/21/23 05:11 02/21/23 05:11 02/21/23 04:00 02/21/23 05:11 02/21/23 04:00 02/20/23 22:00 FiO2 30 02/21/23 05:11 Oxygen Flow Rate (L/min) 2 Oxygen Delivery Method CPAP Weight: 242 lb 11.663 oz Body Mass Index (BMI) 44.6 Intake & Output: Intake and Output for Last 24 Hours 02/19/23 02/20/23 02/21/23 23:59 23:59 23:59 Intake Total 3645.81 / 3645.81 1319.0 / 1319.0 Output Total 1695 / 1700 65 / 65 10 Balance 1950.81 / 1945.81 1254.0 / 1254.0 - Lab / Micro Data Attestation: I reviewed the patient's lab results. 02/19/23 03:30 02/19/23 03:30 Labs: Laboratory Results - last 24 hr 02/19/23 20:35: Gentamicin Trough 8.0 H* Micro: Microbiology 02/18/23 15:48 Blood Culture (Wb) - Venous Blood Culture - Preliminary 02/18/23 16:10 Urine, Nephrostomy Urine Culture - Preliminary Culture exhibits no growth. 02/18/23 18:04 Mucosa - Nasopharyngeal Coronavirus COVID-19 PCR - Final 02/18/23 18:04 Mucosa - Nasopharyngeal Respiratory Panel (PCR) - Final 02/18/23 15:48 Nasal Secretion SARS-CoV-2 & FLU Antigen (Rapid) - Final Radiography Diagnostic Testing: Radiology Impression Abdomen/Pelvis CT 02/19/23 09:31 IMPRESSION: Right cutaneous nephrostomy catheter with the nonobstructive calculi in the lower pole calyx of the right kidney. No evidence of hydronephrosis. Stable cortical thinning in the left kidney. Stable changes in the posterior buttocks as described. Electronically Signed: Jesus Alberto Munoz MD at 10:30 EDT , Physical Exam Const alert and no apparent distress Constitutional Narrative: Obese. General Appearance: cooperative HEENT normocephalic and head/scalp atraumatic Eyes PERRL, EOMs intact bilaterally and conjunctivae normal Neck supple General: trachea midline Chest inspection of chest normal Resp normal respiratory effort Auscultation: diminished lung sounds; Negative for rales, rhonchi or wheezes Cardio regular rate and regular rhythm GI soft to palpation and non-tender Extremity General Extremity: edema; Negative for clubbing Skin Skin Narrative: Venous stasis dermatitis Neuro oriented x3 Neuro Narrative: Baseline paraplegia Psych cooperative and affect normal Charges/Coding Visit Charges Inpatient E&M: 43601 Subs Hosp L2
[2023-02-21] MEDS: Budesonide Respules 0.5 MG/2 ML AMPUL.NEB. INHALATION ×2 (07:03→19:24)
--- NOTE | 2023-02-21 07:38 | PCM.PN.HOSP ---
Reason for Visit Reason for Visit: Diagnoses Sepsis, unspecified organism (02/18/23) End stage renal disease (02/18/23) Urinary tract infection, site not specified (02/18/23) Severe sepsis with septic shock (02/18/23) Subjective Subjective Patient was seen in and examined today, he does not complain of any fevers or chills, blood pressure stable and is not on any pressor agents Objective Data Objective Data Vital Signs: Vital Signs Temp Pulse Resp BP Pulse Ox O2 Del Method O2 Flow Rate 97.3 F L 81 17 118/75 92 Nasal Cannula 2 02/21/23 04:00 02/21/23 07:09 02/21/23 07:09 02/21/23 04:00 02/21/23 07:09 02/21/23 07:09 02/21/23 07:09 FiO2 40 02/21/23 07:00 Oxygen Flow Rate (L/min) 2 Oxygen Delivery Method Nasal Cannula Weight: 110.1 kg Body Mass Index (BMI) 44.6 Intake & Output: Intake and Output for Last 24 Hours 02/19/23 02/20/23 02/21/23 23:59 23:59 23:59 Intake Total 3645.81 / 3645.81 1319.0 / 1319.0 Output Total 1695 / 1700 65 / 65 10 Balance 1950.81 / 1945.81 1254.0 / 1254.0 -10 Lab / Micro Data 02/19/23 03:30 02/19/23 03:30 Micro: Microbiology 02/18/23 15:48 Blood Culture (Wb) - Venous Blood Culture - Preliminary Coag Negative Staph 02/18/23 16:10 Urine, Nephrostomy Urine Culture - Preliminary Culture exhibits no growth. 02/18/23 18:04 Mucosa - Nasopharyngeal Coronavirus COVID-19 PCR - Final 02/18/23 18:04 Mucosa - Nasopharyngeal Respiratory Panel (PCR) - Final 02/18/23 15:48 Nasal Secretion SARS-CoV-2 & FLU Antigen (Rapid) - Final Physical Exam Narrative alert, oriented x3 and no apparent distress General Appearance: cooperative, well kempt and well developed Orientation / Consciousness: awake, oriented to person, oriented to place and oriented to time HEENT normocephalic, head/scalp atraumatic and moist oral mucous membranes Eyes PERRL, EOMs intact bilaterally and conjunctivae normal Neck supple, no JVD and thyroid normal General: trachea midline Resp normal respiratory effort, no retractions, no use of accessory muscles and clear to auscultation bilaterally Auscultation: Negative for rales, rhonchi or wheezes Cardio regular rate, regular rhythm, S1 normal heart sound, S2 normal heart sound, no murmurs, no rub and no gallops GI normal to inspection, nondistended, normoactive bowel sounds, soft to palpation, non-tender and non-distended Extremity Extremity Narrative: Generalized stature she is noted in the lower extremities Neuro oriented x3 and CN's II-XII intact bilaterally Neuro Narrative: Patient has paraplegia Sensorium / Orientation: awake, alert, oriented to person, oriented to place and oriented to time Speech: speech normal Psych affect normal Assessment & Plan Assessment/Plan (1) Septic shock: PLAN: Plan #1 septic shock etiology unclear-patient is being seen by infectious diseases, he remains on IV antibiotics at this time, patient's blood culture is pending, his urine culture exhibits no growth at this time. Patient is currently on cefepime gentamicin, and linezolid, patient is PCU status at this time #2 end-stage renal disease requiring dialysis-nephrology is participating in his care #3 spina bifida with paraplegia-complicates care, medical course, recovery, and prognosis #4 chronic respiratory failure with hypoxia and hypercapnia-patient requires use of ventilator at night and during the day as needed #5 secondary pulmonary arterial hypertension-complicates care, medical course, recovery, and prognosis #6 chronic pressure injuries-wound care nurse saw the patient yesterday, I did not examine his ischial and sacral area for wounds Total clinical time spent by myself addressing the patient's medical issues, reviewing all of his data, and collaborating with patient's care team: 25 minutes Charges/Coding Visit Charges Inpatient E&M: 28614 Subs Hosp L1
[2023-02-21] MEDS: Juven (unflavored) Packet 1 PACKET PO (08:10)
[2023-02-21] MEDS: Gabapentin 100 MG Capsule PO (08:10)
[2023-02-21] MEDS: Miconazole Nitrate 43 GM Bottle 1 APPLIC TOPICAL ×2 (08:12→21:00)
[2023-02-21] MEDS: Linezolid 600 MG 600 MG/300 ML BAG 200 MG IV ×2 (08:15→22:03)
[2023-02-21] MEDS: DAKIN'S SOL HALF STRENGTH (=0.25%) 1 APPLIC TOPICAL (08:16)
[2023-02-21 09:26] LABS: Gentamicin, Random 17.7 ug/mL
--- NOTE | 2023-02-21 10:18 | PCM.RX.CS ---
Consult Antibiotic Management Pharmacy has been consulted to manage selected antiobiotic: Gentamicin Type of Intervention Type of Consult: Follow-up Prior Doses of Antibiotics Prior Doses of Antibiotics Received/Current Regimen: CURRENT ORDER OF 380MG IV Q36H. Labs Labs: Sodium 133 mmol/L (136-145) L 02/19/23 03:30 Potassium 4.2 mmol/L (3.5-5.1) 02/19/23 03:30 Chloride 99 mmol/L (98-107) 02/19/23 03:30 Carbon Dioxide 29.0 mmol/L (21.0-32.0) 02/19/23 03:30 Anion Gap 5 (5-15) 02/19/23 03:30 BUN 41 mg/dL (7-18) H 02/19/23 03:30 Creatinine 4.23 mg/dL (0.70-1.30) H 02/19/23 03:30 Est GFR (MDRD) Af Amer 22 mL/min (>60) L 02/19/23 03:30 Est GFR (MDRD) Non-Af 18 mL/min (>60) L 02/19/23 03:30 BUN/Creatinine Ratio 9.7 RATIO (10-20) L 02/19/23 03:30 Glucose 137 mg/dL (74-106) H 02/19/23 03:30 Gentamicin Trough 8.0 ug/mL (<1.0) H* 02/19/23 20:35 Random Gentamicin 17.7 ug/mL H* 02/21/23 08:30 Microbiology Microbiology: Microbiology 02/18/23 16:10 Urine, Nephrostomy Urine Culture - Final Culture exhibits no growth. 02/18/23 15:48 Blood Culture (Wb) - Venous Blood Culture - Preliminary Coag Negative Staph 02/18/23 18:04 Mucosa - Nasopharyngeal Coronavirus COVID-19 PCR - Final 02/18/23 18:04 Mucosa - Nasopharyngeal Respiratory Panel (PCR) - Final 02/18/23 15:48 Nasal Secretion SARS-CoV-2 & FLU Antigen (Rapid) - Final Dosing Weight Weight used for dosin kg Estimated Creatinine Clearance Estimated Creatinine Clearance: HD Goal Trough Goal Trough: Other (<3-5 pre HD) Pharmacy Plan for Drug Dosing Pharmacy Plan for Drug Dosing: Level today ~12 hrs post dose was 17.7. Will stop any further dosing for now. Random level ordered for AM tomorrow pre dialysis. Pharmacy Service will continue to monitor and adjust dosing as required. Follow-Up Labs Follow-Up Labs: Trough: Gentamicin (02.22.23 0600)
--- NOTE | 2023-02-21 14:06 | NURSING ---
report called to pcu transferred per bed with belongings to room 107, father present
[2023-02-21] MEDS: Menthol/Lanolin/Calamine/Znox 113 GM Tube 1 APPLIC TOPICAL (21:00)
[2023-02-21] MEDS: Cefepime HCl 1 GM in 0.9% Normal Saline (50mL MB+) 50 ML IV (21:00)
[2023-02-21] MEDS: traZODone 100 MG Tablet PO (21:01)
[2023-02-22] VITALS (18 sets, daily range): BP systolic 87–310; BP diastolic 55–84; PULSE 55–100; RESP 12–20; TEMP 36.6–36.9; O2SAT 94–100; BMI 45.1; BMI 44.3
[2023-02-22 05:31] LABS: Absolute Lymphocyte Count 2.53 X10^3/uL (0.83-4.51); Absolute Neutrophil Count 8.2 X10^3/uL (2.0-7.7); Basophil# 0.07 X10^3/uL; Basophil% 0.6 % (0-1); Eosinophil# 0.03 X10^3/uL; Eosinophils% 0.3 % (0-5); Hemoglobin 9.5 g/dL (13.0-16.5); Lymphocyte # 2.53 X10^3/ul (0.83-4.51); Lymphocyte % 21.1 % (19-41); Mean Corp Hgb Conc 27.9 g/dL (32-36); Mean Corpuscular Hgb 25.7 pg (27.0-32.0); Mean Corpuscular Volume 91.9 fL (80-94); Mean Platelet Vol. 10.2 fl (6.2-12.0); Monocyte# 1.09 X10^3/uL; Monocyte% 9.1 % (0-10); NRBC Flagged by Analyzer 0 % (0-5); Neutrophil % 68.4 % (47-70); Platelet Count 372 K/mm3 (150-450); RBC Distribution Width CV 16.9 % (11.6-14.6)
[2023-02-22 06:07] LABS: ALB/GLOB Ratio 0.5 RATIO (0.9-2.4); AST(SGOT) 20 U/L (15-37); Alanine Aminotransfer ALT/SGPT 18 U/L (16-61); Albumin, Serum 2.4 g/dL (3.2-5.0); Alkaline Phosphatase 190 U/L (45-117); Anion Gap 10 (5-15); BUN 107 mg/dL (7-18); BUN/Creat Ratio 18.2 RATIO (10-20); Calcium,Total 7.9 mg/dL (8.5-10.1); Chloride 106 mmol/L (98-107); Creatinine, Serum 5.88 mg/dL (0.70-1.30); EST Glomerular Filtration Rate 12 mL/min (>60); Est Glom Filt Rate - Afr Amer 15 mL/min (>60); Estimated Creatinine Clearance 14.32 ml/min; Globulin 4.8 g/dL (2.2-4.2); Glucose 89 mg/dL (74-106); Potassium 4.6 mmol/L (3.5-5.1); Protein, Total 7.2 g/dL (6.4-8.2); Sodium Level 140 mmol/L (136-145)
[2023-02-22] MEDS: Budesonide Respules 0.5 MG/2 ML AMPUL.NEB. INHALATION ×2 (06:51→22:19)
[2023-02-22] MEDS: PureFlow B 2K Dialysis Soln 1 BAG 6 BAG PF (08:35)
[2023-02-22] MEDS: 0.9% Normal Saline 1,000 ML IV.SOLN. 1000 ML OPERA.SITE (08:37)
[2023-02-22] MEDS: Midodrine HCl 5 MG Tablet 10 MG PO ×3 (08:38→23:01)
--- NOTE | 2023-02-22 09:43 | PCM.PN.HOSP ---
Reason for Visit Reason for Visit: Diagnoses Sepsis, unspecified organism (02/18/23) End stage renal disease (02/18/23) Urinary tract infection, site not specified (02/18/23) Severe sepsis with septic shock (02/18/23) Subjective Subjective Feeling much better than he had been, no acute complaints today Objective Data Objective Data Vital Signs: Vital Signs Temp Pulse Resp BP Pulse Ox O2 Del Method O2 Flow Rate 97.8 F 55 L 18 97/55 L 100 Nasal Cannula 2 02/22/23 03:10 02/22/23 09:27 02/22/23 08:52 02/22/23 09:27 02/22/23 08:52 02/22/23 08:52 02/22/23 08:52 FiO2 30 02/22/23 03:22 Oxygen Flow Rate (L/min) 2 Oxygen Delivery Method Nasal Cannula Weight: 111.2 kg Body Mass Index (BMI) 45.1 Intake & Output: Intake and Output for Last 24 Hours 02/20/23 02/21/23 02/22/23 23:59 23:59 23:59 Intake Total 1319.0 / 1319.0 1190 / 1190 240 / 240 Output Total 65 / 65 1705 / 1705 Balance 1254.0 / 1254.0 -515 / -515 240 / 240 Lab / Micro Data 02/22/23 05:05 02/22/23 05:05 Labs: Laboratory Results - last 24 hr 02/22/23 05:05: WBC 12.0 H, RBC 3.70 L, Hgb 9.5 L, Hct 34.0 L, MCV 91.9, MCH 25.7 L, MCHC 27.9 L, RDW Std Deviation 57.0 H, RDW Coeff of Francisco 16.9 H, Plt Count 372, MPV 10.2, Immature Gran % (Auto) 0.500, Neut % (Auto) 68.4, Lymph % (Auto) 21.1, [place] % (Auto) 9.1, Eos % (Auto) 0.3, Baso % (Auto) 0.6, Absolute Neuts (auto) 8.2 H, Absolute Lymphs (auto) 2.53, Nucleated RBC % 0, Sodium 140, Potassium 4.6, Chloride 106, Carbon Dioxide 24.0, Anion Gap 10, BUN 107 H*, Creatinine 5.88 H, Estim Creat Clear Calc 14.32, Est GFR (MDRD) Af Amer 15 L, Est GFR (MDRD) Non-Af 12 L, BUN/Creatinine Ratio 18.2, Glucose 89, Calcium 7.9 L, Total Bilirubin 0.40, AST 20, ALT 18, Alkaline Phosphatase 190 H, Total Protein 7.2, Albumin 2.4 L, Globulin 4.8 H, Albumin/Globulin Ratio 0.5 L Micro: Microbiology 02/18/23 16:10 Blood Culture (Wb) - Anticubital Right Blood Culture - Preliminary No growth in 48 hours. 02/18/23 16:10 Urine, Nephrostomy Urine Culture - Final Culture exhibits no growth. 02/18/23 15:48 Blood Culture (Wb) - Venous Blood Culture - Preliminary Coag Negative Staph 02/18/23 18:04 Mucosa - Nasopharyngeal Coronavirus COVID-19 PCR - Final 02/18/23 18:04 Mucosa - Nasopharyngeal Respiratory Panel (PCR) - Final 02/18/23 15:48 Nasal Secretion SARS-CoV-2 & FLU Antigen (Rapid) - Final Physical Exam Narrative General: Alert, oriented, no apparent distress HEENT: Atraumatic, normocephalic Eyes: Normal conjunctiva Neck: Supple Respiratory: Clear to auscultation bilaterally, normal respiratory effort Cardiovascular: Regular rate and rhythm GI: Soft, nontender, nondistended Extremities: No edema Musculoskeletal: Moving upper extremities Neuro: No overt focal neurological deficits Skin: No rashes appreciated Psych: Cooperative Assessment & Plan Assessment/Plan (1) Septic shock: PLAN: Plan #1 Undifferentiated shock of unclear etiology -patient is being seen by infectious diseases, he remains on IV antibiotics at this time, patient's blood culture is pending, his urine culture exhibits no growth at this time. Patient is currently on cefepime gentamicin, and linezolid, patient is PCU status at this time -02/22: Suspect that patient may have had adrenal insufficiency and intravascular volume depletion +/- infection or combination of all of the above leading to presentation. Blood pressure stably low and not requiring pressors, continue midodrine, ICU recommended weaning stress dose steroids and has signed off. ID recommendations for antibiotics, 1 or 2 blood cultures coag negative staph likely contaminant, urine culture no growth to date. Additionally will check thyroid levels in a.m. #2 end-stage renal disease requiring dialysis-nephrology is participating in his care -02/22: Continue dialysis per nephrology management/recommendations #3 spina bifida with paraplegia-complicates care, medical course, recovery, and prognosis -02/22: Patient with wound care following, continue supportive care, patient functionally at baseline's has not been working further with physical therapy #4 chronic respiratory failure with hypoxia and hypercapnia-patient requires use of ventilator at night and during the day as needed -02/22: Stable, continue present management, follows up outpatient pulmonology #5 secondary pulmonary arterial hypertension-complicates care, medical course, recovery, and prognosis #6 chronic pressure injuries-wound care nurse saw the patient yesterday, I did not examine his ischial and sacral area for wounds -02/22: Wound care continue to monitor patient Total clinical time spent by myself addressing the patient's medical issues, reviewing all of his data, and collaborating with patient's care team: 36 minutes Charges/Coding Visit Charges Inpatient E&M: 38780 Subs Hosp L2
--- NOTE | 2023-02-22 11:20 | PCM.PN.REN ---
Subjective Subjective Seen on dialysis today. No new complaints Objective Data Objective Data Vital Signs: Vital Signs Temp Pulse Resp BP Pulse Ox O2 Del Method O2 Flow Rate 97.8 F 69 18 117/64 100 Nasal Cannula 2 02/22/23 03:10 02/22/23 10:57 02/22/23 10:57 02/22/23 10:57 02/22/23 08:52 02/22/23 08:52 02/22/23 08:52 FiO2 30 02/22/23 03:22 Oxygen Flow Rate (L/min) 2 Oxygen Delivery Method Nasal Cannula Weight: 111.2 kg Body Mass Index (BMI) 45.1 Intake & Output: Intake and Output for Last 24 Hours 02/20/23 02/21/23 02/22/23 23:59 23:59 23:59 Intake Total 1319.0 / 1319.0 1190 / 1190 240 / 240 Output Total 65 / 65 1705 / 1705 Balance 1254.0 / 1254.0 -515 / -515 240 / 240 Lab / Micro Data 02/22/23 05:05 02/22/23 05:05 Labs: Laboratory Results - last 24 hr 02/22/23 05:05: WBC 12.0 H, RBC 3.70 L, Hgb 9.5 L, Hct 34.0 L, MCV 91.9, MCH 25.7 L, MCHC 27.9 L, RDW Std Deviation 57.0 H, RDW Coeff of [place] 16.9 H, Plt Count 372, MPV 10.2, Immature Gran % (Auto) 0.500, Neut % (Auto) 68.4, Lymph % (Auto) 21.1, [place] % (Auto) 9.1, Eos % (Auto) 0.3, Baso % (Auto) 0.6, Absolute Neuts (auto) 8.2 H, Absolute Lymphs (auto) 2.53, Nucleated RBC % 0, Sodium 140, Potassium 4.6, Chloride 106, Carbon Dioxide 24.0, Anion Gap 10, BUN 107 H*, Creatinine 5.88 H, Estim Creat Clear Calc 14.32, Est GFR (MDRD) Af Amer 15 L, Est GFR (MDRD) Non-Af 12 L, BUN/Creatinine Ratio 18.2, Glucose 89, Calcium 7.9 L, Total Bilirubin 0.40, AST 20, ALT 18, Alkaline Phosphatase 190 H, Total Protein 7.2, Albumin 2.4 L, Globulin 4.8 H, Albumin/Globulin Ratio 0.5 L Micro: Microbiology 02/18/23 15:48 Blood Culture (Wb) - Venous Blood Culture - Final Coag Negative Staph 02/18/23 16:10 Blood Culture (Wb) - Anticubital Right Blood Culture - Preliminary No growth in 48 hours. 02/18/23 16:10 Urine, Nephrostomy Urine Culture - Final Culture exhibits no growth. 02/18/23 18:04 Mucosa - Nasopharyngeal Coronavirus COVID-19 PCR - Final 02/18/23 18:04 Mucosa - Nasopharyngeal Respiratory Panel (PCR) - Final 02/18/23 15:48 Nasal Secretion SARS-CoV-2 & FLU Antigen (Rapid) - Final Physical Exam Narrative Alert and oriented x3, no apparent distress S1, S2, RRR Lung sounds clear anteriorly, diminished breath sounds Abdomen soft, nontender No edema Left forearm AV fistula positive thrill and bruit Assessment & Plan Assessment/Plan (1) ESRD (end stage renal disease): (2) Septic shock: PLAN: Plan Impression/Plan: This is a very pleasant 27-year-old male with past medical history significant for ESRD on hemodialysis via AV fistula, history of spina bifida status post [employer]ELOPMENT REP shunt (nonfunctional) with paraplegic immobility syndrome, chronic indwelling catheter followed by urologist at [facility] with history of nephrolithiasis with stents in past, chronic right nephrostomy tube which was recently changed few days ago by IR at [facility], chronic systolic heart failure, anemia of chronic disease who presented to the emergency room yesterday as at end of dialysis session patient became hypotensive, tachycardic with fever; admitted for septic shock with unclear etiology at this time, UTI and pyelonephritis. Nephrology consulted for hemodialysis needs. ESRD. Patient is currently in transition from in center hemodialysis to at home hemodialysis after discharge. Seen on dialysis today. See orders. No complaints. Septic shock. He does have a history of chronic hypotension and is on midodrine. ID consulted for antibiotics Anemia in CKD. Patient has history of anemia of chronic disease, current hemoglobin acceptable at 10.
[2023-02-22 12:02] LABS: Gentamicin, Random 7.9 ug/mL
--- NOTE | 2023-02-22 12:23 | PCM.RX.CS ---
Consult Antibiotic Management Pharmacy has been consulted to manage selected antiobiotic: Gentamicin Type of Intervention Type of Consult: Follow-up Suspected Infection Suspected Infection: Other (UTI) Prior Doses of Antibiotics Prior Doses of Antibiotics Received/Current Regimen: last dose of gentamicin 380 mg given 02/20/23 @ 2059 Labs Labs: Sodium 140 mmol/L (136-145) 02/22/23 05:05 Potassium 4.6 mmol/L (3.5-5.1) 02/22/23 05:05 Chloride 106 mmol/L (98-107) 02/22/23 05:05 Carbon Dioxide 24.0 mmol/L (21.0-32.0) 02/22/23 05:05 Anion Gap 10 (5-15) 02/22/23 05:05 BUN 107 mg/dL (7-18) H* 02/22/23 05:05 Creatinine 5.88 mg/dL (0.70-1.30) H 02/22/23 05:05 Est GFR (MDRD) Af Amer 15 mL/min (>60) L 02/22/23 05:05 Est GFR (MDRD) Non-Af 12 mL/min (>60) L 02/22/23 05:05 BUN/Creatinine Ratio 18.2 RATIO (10-20) 02/22/23 05:05 Glucose 89 mg/dL (74-106) 02/22/23 05:05 Gentamicin Trough 8.0 ug/mL (<1.0) H* 02/19/23 20:35 Random Gentamicin 7.9 ug/mL 02/22/23 11:29 Microbiology Microbiology: Microbiology 02/18/23 15:48 Blood Culture (Wb) - Venous Blood Culture - Final Coag Negative Staph 02/18/23 16:10 Blood Culture (Wb) - Anticubital Right Blood Culture - Preliminary No growth in 48 hours. 02/18/23 16:10 Urine, Nephrostomy Urine Culture - Final Culture exhibits no growth. 02/18/23 18:04 Mucosa - Nasopharyngeal Coronavirus COVID-19 PCR - Final 02/18/23 18:04 Mucosa - Nasopharyngeal Respiratory Panel (PCR) - Final 02/18/23 15:48 Nasal Secretion SARS-CoV-2 & FLU Antigen (Rapid) - Final Dosing Weight Weight used for dosin.5 kg Estimated Creatinine Clearance Estimated Creatinine Clearance: on HD Pharmacy Plan for Drug Dosing Pharmacy Plan for Drug Dosing: Patients random level drawn during dialysis today @ 1129 = 7.9. Will not repeat dose today, will get another random level prior to next anticipated HD session on 02/24/23. Pharmacy Service will continue to monitor and adjust dosing as required. Follow-Up Labs Follow-Up Labs: Trough: Gentamicin (Random) Date/Time Labs Ordered Labs to be done on [date and time ordered]: 02/24/23 @ 0600
[2023-02-22] MEDS: DAKIN'S SOL HALF STRENGTH (=0.25%) 1 APPLIC TOPICAL (12:24)
[2023-02-22] MEDS: Gabapentin 100 MG Capsule PO (12:24)
[2023-02-22] MEDS: Miconazole Nitrate 43 GM Bottle 1 APPLIC TOPICAL ×2 (12:24→22:33)
[2023-02-22] MEDS: Hydrocortisone Sod Succinate 100 MG/2 ML Vial IV (12:24)
[2023-02-22] MEDS: Menthol/Lanolin/Calamine/Znox 113 GM Tube 1 APPLIC TOPICAL ×2 (12:25→22:32)
[2023-02-22] MEDS: 0.9% Saline Lock 10 ML Syringe IV (12:27)
[2023-02-22] MEDS: Linezolid 600 MG 600 MG/300 ML BAG 200 MG IV (12:29)
--- NOTE | 2023-02-22 15:58 | PCM.PN.ID ---
Physical Exam Narrative Feeling fine, no fever, no abd pain. Const alert and no apparent distress Resp normal air movement and clear to auscultation bilaterally Cardio regular rate and regular rhythm GI soft to palpation and non-tender GI Narrative: distended Skin no rashes or lesions noted ID ID: Route of nutrition/ use of supplements: [] Nutritional Intake: [] IV Site: [] Bonilla Catheter: [] Assessment & Plan Assessment/Plan (1) ESRD (end stage renal disease): (2) Septic shock: PLAN: Improved. Ucx and bcx neg here. H/o MDR uti/pyelo in 10/2022. Will stop linezolid and gent. Cont cefepime for now. Mildly elevated wbc, no fever. Now on HD. Will follow
[2023-02-22] MEDS: Cefepime HCl 1 GM in 0.9% Normal Saline (50mL MB+) 50 ML IV (23:00)
[2023-02-22] MEDS: traZODone 100 MG Tablet PO (23:01)
[2023-02-23] VITALS (10 sets, daily range): BP systolic 92–102; BP diastolic 48–56; PULSE 72–98; RESP 12–20; TEMP 36.6–37.1; O2SAT 84–99; BMI 44.8
[2023-02-23 05:54] LABS: Absolute Lymphocyte Count 2.45 X10^3/uL (0.83-4.51); Absolute Neutrophil Count 6.6 X10^3/uL (2.0-7.7); Basophil# 0.08 X10^3/uL; Basophil% 0.7 % (0-1); Eosinophil# 0.19 X10^3/uL; Eosinophils% 1.8 % (0-5); Hematocrit 33.5 % (40-54); Hemoglobin 9.4 g/dL (13.0-16.5); Lymphocyte # 2.45 X10^3/ul (0.83-4.51); Mean Corp Hgb Conc 28.1 g/dL (32-36); Mean Corpuscular Hgb 25.8 pg (27.0-32.0); Mean Platelet Vol. 10.3 fl (6.2-12.0); Monocyte# 1.26 X10^3/uL; Monocyte% 11.8 % (0-10); NRBC Flagged by Analyzer 0 % (0-5); Neutrophil % 61.9 % (47-70); Platelet Count 335 K/mm3 (150-450); RBC Distribution Width CV 17.2 % (11.6-14.6); RBC Distribution Width SD 57.1 fl (35.1-43.9); Red Blood Count 3.64 M/mm3 (4.6-6.2); White Blood Count 10.7 K/mm3 (4.4-11.0)
[2023-02-23 06:41] LABS: Anion Gap 7 (5-15); BUN 82 mg/dL (7-18); BUN/Creat Ratio 16.9 RATIO (10-20); Calcium,Total 8.2 mg/dL (8.5-10.1); Chloride 107 mmol/L (98-107); Creatinine, Serum 4.85 mg/dL (0.70-1.30); EST Glomerular Filtration Rate 15 mL/min (>60); Est Glom Filt Rate - Afr Amer 18 mL/min (>60); Estimated Creatinine Clearance 17.36 ml/min; Glucose 80 mg/dL (74-106); Potassium 4.5 mmol/L (3.5-5.1); Sodium Level 139 mmol/L (136-145); T4 Free Direct 0.98 ng/dL (0.76-1.46)
[2023-02-23] MEDS: Budesonide Respules 0.5 MG/2 ML AMPUL.NEB. INHALATION (07:22)
--- NOTE | 2023-02-23 08:07 | PCM.PN.HOSP ---
Reason for Visit Reason for Visit: Diagnoses Sepsis, unspecified organism (02/18/23) End stage renal disease (02/18/23) Urinary tract infection, site not specified (02/18/23) Severe sepsis with septic shock (02/18/23) Objective Data Objective Data Vital Signs: Vital Signs Temp Pulse Resp BP Pulse Ox O2 Del Method O2 Flow Rate 98.7 F 72 17 92/48 L 99 Nasal Cannula 2 02/23/23 04:30 02/23/23 07:22 02/23/23 07:22 02/23/23 04:30 02/23/23 07:27 02/23/23 07:37 02/23/23 07:37 FiO2 30 02/23/23 07:22 Oxygen Flow Rate (L/min) 2 Oxygen Delivery Method Nasal Cannula Weight: 109.3 kg Body Mass Index (BMI) 44.3 Intake & Output: Intake and Output for Last 24 Hours 02/21/23 02/22/23 02/23/23 23:59 23:59 23:59 Intake Total 1190 / 1190 1590 / 2050 460 / 460 Output Total 1705 / 1705 5210 / 5235 50 / 50 Balance -515 / -515 -3620 / -3185 410 / 410 Lab / Micro Data 02/23/23 05:10 02/23/23 05:10 Labs: Laboratory Results - last 24 hr 02/22/23 11:29: Random Gentamicin 7.9 02/23/23 05:10: WBC 10.7, RBC 3.64 L, Hgb 9.4 L, Hct 33.5 L, MCV 92.0, MCH 25.8 L, MCHC 28.1 L, RDW Std Deviation 57.1 H, RDW Coeff of [place] 17.2 H, Plt Count 335, MPV 10.3, Immature Gran % (Auto) 0.800, Neut % (Auto) 61.9, Lymph % (Auto) 23.0, [place] % (Auto) 11.8 H, Eos % (Auto) 1.8, Baso % (Auto) 0.7, Absolute Neuts (auto) 6.6, Absolute Lymphs (auto) 2.45, Nucleated RBC % 0, Sodium 139, Potassium 4.5, Chloride 107, Carbon Dioxide 25.0, Anion Gap 7, BUN 82 H, Creatinine 4.85 H, Estim Creat Clear Calc 17.36, Est GFR (MDRD) Af Amer 18 L, Est GFR (MDRD) Non-Af 15 L, BUN/Creatinine Ratio 16.9, Glucose 80, Calcium 8.2 L, TSH 10.50 H, Free T4 0.98 Micro: Microbiology 02/18/23 15:48 Blood Culture (Wb) - Venous Blood Culture - Final Coag Negative Staph 02/18/23 16:10 Blood Culture (Wb) - Anticubital Right Blood Culture - Preliminary No growth in 48 hours. 02/18/23 16:10 Urine, Nephrostomy Urine Culture - Final Culture exhibits no growth. 02/18/23 18:04 Mucosa - Nasopharyngeal Coronavirus COVID-19 PCR - Final 02/18/23 18:04 Mucosa - Nasopharyngeal Respiratory Panel (PCR) - Final 02/18/23 15:48 Nasal Secretion SARS-CoV-2 & FLU Antigen (Rapid) - Final Assessment & Plan Assessment/Plan (1) Septic shock: PLAN: Plan #1 Undifferentiated shock of unclear etiology -patient is being seen by infectious diseases, he remains on IV antibiotics at this time, patient's blood culture is pending, his urine culture exhibits no growth at this time. Patient is currently on cefepime gentamicin, and linezolid, patient is PCU status at this time -02/22: Suspect that patient may have had adrenal insufficiency and intravascular volume depletion +/- infection or combination of all of the above leading to presentation. Blood pressure stably low and not requiring pressors, continue midodrine, ICU recommended weaning stress dose steroids and has signed off. ID recommendations for antibiotics, 1 or 2 blood cultures coag negative staph likely contaminant, urine culture no growth to date. Additionally will check thyroid levels in a.m. -02/23: TSH elevated, free T4 within normal limits, hydrocortisone will decrease again tomorrow and then patient will be back to his home dose. Cultures here no growth and linezolid and gent stopped, presently on cefepime. Anticipate patient can be DC'd tomorrow with final antibiotic plan in place #2 end-stage renal disease requiring dialysis-nephrology is participating in his care -02/22: Continue dialysis per nephrology management/recommendations #3 spina bifida with paraplegia-complicates care, medical course, recovery, and prognosis -02/22: Patient with wound care following, continue supportive care, patient functionally at baseline's has not been working further with physical therapy #4 chronic respiratory failure with hypoxia and hypercapnia-patient requires use of ventilator at night and during the day as needed -02/22: Stable, continue present management, follows up outpatient pulmonology -02/23: Follow-up with Dr. Ayoub April 29 as previously scheduled #5 secondary pulmonary arterial hypertension-complicates care, medical course, recovery, and prognosis #6 chronic pressure injuries-wound care nurse saw the patient yesterday, I did not examine his ischial and sacral area for wounds -02/22: Wound care continue to monitor patient Total clinical time spent by myself addressing the patient's medical issues, reviewing all of his data, and collaborating with patient's care team: 36 minutes Charges/Coding Visit Charges Inpatient E&M: 52235 Subs Hosp L2
[2023-02-23] MEDS: Juven (unflavored) Packet 1 PACKET PO (08:35)
[2023-02-23] MEDS: Midodrine HCl 5 MG Tablet 10 MG PO ×2 (08:35→15:22)
[2023-02-23] MEDS: DAKIN'S SOL HALF STRENGTH (=0.25%) 1 APPLIC TOPICAL (08:35)
[2023-02-23] MEDS: Miconazole Nitrate 43 GM Bottle 1 APPLIC TOPICAL (08:36)
[2023-02-23] MEDS: Menthol/Lanolin/Calamine/Znox 113 GM Tube 1 APPLIC TOPICAL (08:36)
[2023-02-23] MEDS: Hydrocortisone Sod Succinate 100 MG/2 ML Vial 60 MG IV (08:44)
[2023-02-23] MEDS: Hydrocortisone Sod Succinate 100 MG/2 ML Vial 80 MG IV (09:47)
--- NOTE | 2023-02-23 09:52 | PCM.PN.REN ---
Subjective Subjective Resting in bed. No complaints. No overnight events. Objective Data Objective Data Vital Signs: Vital Signs Temp Pulse Resp BP Pulse Ox O2 Del Method O2 Flow Rate 97.8 F 85 14 94/54 L 99 Nasal Cannula 2 02/23/23 08:32 02/23/23 08:32 02/23/23 08:32 02/23/23 08:32 02/23/23 07:27 02/23/23 08:32 02/23/23 08:32 FiO2 30 02/23/23 07:22 Oxygen Flow Rate (L/min) 2 Oxygen Delivery Method Nasal Cannula Weight: 110.5 kg Body Mass Index (BMI) 44.8 Intake & Output: Intake and Output for Last 24 Hours 02/21/23 02/22/23 02/23/23 23:59 23:59 23:59 Intake Total 1190 / 1190 1590 / 2050 460 / 460 Output Total 1705 / 1705 5210 / 5235 50 / 50 Balance -515 / -515 -3620 / -3185 410 / 410 Lab / Micro Data 02/23/23 05:10 02/23/23 05:10 Labs: Laboratory Results - last 24 hr 02/22/23 11:29: Random Gentamicin 7.9 02/23/23 05:10: WBC 10.7, RBC 3.64 L, Hgb 9.4 L, Hct 33.5 L, MCV 92.0, MCH 25.8 L, MCHC 28.1 L, RDW Std Deviation 57.1 H, RDW Coeff of [place] 17.2 H, Plt Count 335, MPV 10.3, Immature Gran % (Auto) 0.800, Neut % (Auto) 61.9, Lymph % (Auto) 23.0, [place] % (Auto) 11.8 H, Eos % (Auto) 1.8, Baso % (Auto) 0.7, Absolute Neuts (auto) 6.6, Absolute Lymphs (auto) 2.45, Nucleated RBC % 0, Sodium 139, Potassium 4.5, Chloride 107, Carbon Dioxide 25.0, Anion Gap 7, BUN 82 H, Creatinine 4.85 H, Estim Creat Clear Calc 17.36, Est GFR (MDRD) Af Amer 18 L, Est GFR (MDRD) Non-Af 15 L, BUN/Creatinine Ratio 16.9, Glucose 80, Calcium 8.2 L, TSH 10.50 H, Free T4 0.98 Micro: Microbiology 02/18/23 15:48 Blood Culture (Wb) - Venous Blood Culture - Final Coag Negative Staph 02/18/23 16:10 Blood Culture (Wb) - Anticubital Right Blood Culture - Preliminary No growth in 48 hours. 02/18/23 16:10 Urine, Nephrostomy Urine Culture - Final Culture exhibits no growth. 02/18/23 18:04 Mucosa - Nasopharyngeal Coronavirus COVID-19 PCR - Final 02/18/23 18:04 Mucosa - Nasopharyngeal Respiratory Panel (PCR) - Final 02/18/23 15:48 Nasal Secretion SARS-CoV-2 & FLU Antigen (Rapid) - Final Physical Exam Narrative Alert and oriented x3, no apparent distress S1, S2, RRR Lung sounds clear anteriorly Abdomen soft, nontender No edema Left forearm AV fistula positive thrill and bruit Assessment & Plan Assessment/Plan (1) ESRD (end stage renal disease): (2) Septic shock: PLAN: Plan Impression/Plan: This is a very pleasant 27-year-old male with past medical history significant for ESRD on hemodialysis via AV fistula, history of spina bifida status post [employer]AFF EDUCATOR shunt (nonfunctional) with paraplegic immobility syndrome, chronic indwelling catheter followed by urologist at [facility] with history of nephrolithiasis with stents in past, chronic right nephrostomy tube which was recently changed few days ago by IR at [facility], chronic systolic heart failure, anemia of chronic disease who presented to the emergency room yesterday as at end of dialysis session patient became hypotensive, tachycardic with fever; admitted for septic shock with unclear etiology at this time, UTI and pyelonephritis. Nephrology consulted for hemodialysis needs. - ESRD: Patient is currently in transition from in center hemodialysis to at home hemodialysis after discharge. Patient underwent dialysis yesterday. No acute indication for BLOCK PILER today. Next dialysis tomorrow. - Septic shock. Urine cultures and blood cultures negative. ID consulted for antibiotics. Currently on cefepime. He does have a history of chronic hypotension and is on midodrine. - Anemia in CKD. Patient has history of anemia of chronic disease, current hemoglobin acceptable. Limit blood draws if able. Patient does receive CRISTIANO and iron with outpatient dialysis
--- NOTE | 2023-02-23 11:55 | CHAPLAIN ---
Type of Pastoral Visit _x__ Initial Visit ___ Follow-up Visit ___ On-call Visit ___ General Patient Visit ___ Spiritual Assessment ___ Family Conference ___ Bereavement ___ Rapid Response ___ Code Blue ___ Other (describe below) Pastoral Care Referral From _x__ Patient ___ Family ___ Nurse ___ Physician ___ Finger Buff Sewer ___ Web Developer ___ Other (describe below) Sacrament/Intervention _x__ Active listening ___ Anointing ___ Yazidi ___ Bereavement ___ Communion _x__ Ashley exploration ___ _x__ Life review _x__ Prayer ___ Reconciliation ___ Sacrament of Sick _x__ Supportive presence ___ Wedding ___ Other (describe below) Pastoral Comments patient is welcoming and talkative about his last year of hospitalizations and rehab admissions; pt also lost his grandmother recently and talks about her influence on his life for ashley matters; pt shares great appreciation for his parents and his brothers who are his main support and encouragement; pt recognizes how close he came to in last year and God spared me so there must be a reason; talk about how pt rio, his life perspective, and his ashley; pt welcomes prayers and visit of this records clerk
--- NOTE | 2023-02-23 12:22 | CASEMGMT ---
Social Work As per initial telephone surveyor, pt does not have LW/POA and declined further information. JAY Rai
--- NOTE | 2023-02-23 13:54 | DCINST_ITS ---
Discharge Instructions Diet Discharge Diet: Renal Diet Activity Discharge Activity: Return to Normal Activity Follow Up Care Test Results: Test results from this visit will be discussed in further detail at your follow- up appointment, if applicable. Discharge Plan Admission Admit Date/Time: 02/18/23 18:24 Primary Reason for Your Visit: Low blood pressure Attending Provider: Corinne Root Primary Care Provider: Cameron Romero Consulting Providers: Maureen Ferguson; Luis Amador; Amarjit Estevez; Michele Cohen; Cameron Mclean Instructions Patient Instructions: Hemodialysis Additional Instructions / Restrictions: DISCHARGE INSTRUCTIONS PLEASE READ *Please take this with you to your next doctors appointment* -You will need repeat thyroid function tests in the next several weeks to several months, if they are still abnormal you may need to be initiated on Synthroid -Please continue to follow with nephrology and hemodialysis as scheduled -Please take 30mg of your hydrocortisone twice daily tomorrow and return to your home dose of 15 twice daily thereafter -Please call your primary care provider's office upon discharge to schedule a hospital follow up within 1 week. -For any concerning signs or symptoms please call 911 or proceed to the nearest emergency department Discharge Orders/Prescriptions Prescriptions: Continued dextrose [Glucose Gel] 40 % Gel 15 g PO Q15M PRN (Reason: Hypoglycemia) Rx Instructions: until symptoms of low blood sugar are controlled loperamide 2 mg Tablet 2 mg PO Q6H PRN (Reason: Diarrhea) magnesium hydroxide [Milk of Magnesia] 400 mg/5 mL Suspension 400 mg PO DAILY PRN (Reason: Constipation) trazodone 100 mg Tablet 100 mg PO QHS bisacodyl 10 mg Suppository 10 mg [place] DAILY PRN (Reason: Constipation) Fleet Enema 19-7 gram/118 mL Enema 118 ml [place] DAILY PRN (Reason: Constipation) sertraline 25 mg Tablet 25 mg PO DAILY gabapentin 100 mg Capsule 100 mg PO DAILY hydrocortisone 10 mg Tablet 15 mg PO BID Hold Instructions: Resume on 09/23/22. midodrine 10 mg Tablet 10 mg PO .QID Rx Instructions: do not give last dose of day after 6PM or within 4 hrs of bedtime ferrous gluconate [Ferate] 240 mg (27 mg iron) tablet 240 mg PO BID Patient Comments: TAKE 1 TABLET BY MOUTH TWICE DAILY WITH WATER OR JUICE BETWEEN MEALS simethicone [Gas Relief (simethicone)] 80 mg tablet,chewable 80 mg PO BID PRN (Reason: gi upset) Discontinued doxycycline monohydrate 100 mg tablet 100 mg PO BID Rx Instructions: X10 DAYS Referrals / Follow Up: Cameron Romero DO [Primary Care Provider] - Within 1 Week Disposition Disposition (needs filled in before D/C Order can be placed): Home Health Service
--- NOTE | 2023-02-23 14:02 | PCM.DC.SUM ---
Providers Date of Admission: 02/18/23 Date of Discharge: 02/23/23 Primary Care Physician: Dr. Cameron Romero, Consultations 02/18/23 20:05 Consult: Infectious Disease Routine Consulting Provider: Luis Amador Reason for Consult: Complicated UTI EMERGENT Consult: No Notified: Yes Date Notified: 02/18/23 Time Notified: 18:26 Method of Notification: Verbal Consult: Nephrology Routine Consulting Provider: Amarjit Estevez Reason for Consult: ESRD on HD EMERGENT Consult: No Notified: Yes Date Notified: 02/19/23 Time Notified: 07:52 Method of Notification: Answering Service Consult: Onc/Wound/paper guillotine operator Routine Comment: Reason for Consult:: Chronic wounds Consult: Urology Routine Consulting Provider: Michele Cohen Reason for Consult: Nephrotomy placement->UTI EMERGENT Consult: No Notified: Yes Date Notified: 02/18/23 Time Notified: 19:39 Method of Notification: Verbal 02/19/23 03:09 Consult: Portal Architect / Pulmonary Medicine Routine Consulting Provider: Pulmonary Medicine [facility] Reason for Consult: sepsis requiring vasopressor EMERGENT Consult: No Notified: Yes Date Notified: 02/19/23 Time Notified: 03:09 Method of Notification: Text Reason For Visit: COMPLICATED UTI, RECENT NEPHROSTOMY, SUSPECTED Diagnosis Discharge Diagnosis (1) ESRD (end stage renal disease): Status: Acute Code(s): N18.6 - End stage renal disease (2) Septic shock: Status: Acute Code(s): A41.9 - Sepsis, unspecified organism; R65.21 - Severe sepsis with septic shock Plan #1 Undifferentiated shock of unclear etiology-likely multi etiology with intravascular volume depletion and adrenal insufficiency contributing #2 end-stage renal disease requiring dialysis-nephrology is participating in his care #3 spina bifida with paraplegia #4 chronic respiratory failure with hypoxia and hypercapnia #5 secondary pulmonary arterial hypertension #6 chronic pressure injuries Medications at Discharge Home Medications bisacodyl 10 mg rectal suppository 10 mg [place] DAILY PRN Constipation 09/17/22 dextrose 40 % oral gel (Glucose Gel) 15 g PO Q15M PRN Hypoglycemia 09/17/22 gabapentin 100 mg capsule 100 mg PO DAILY 09/17/22 hydrocortisone 10 mg tablet 15 mg PO BID 09/17/22 loperamide 2 mg tablet 2 mg PO Q6H PRN Diarrhea 09/17/22 magnesium hydroxide 400 mg/5 mL oral suspension (Milk of Magnesia) 400 mg PO DAILY PRN Constipation 09/17/22 midodrine 10 mg tablet 10 mg PO .QID 09/17/22 sertraline 25 mg tablet 25 mg PO DAILY 09/17/22 sodium phosphates 19 gram-7 gram/118 mL enema (Fleet Enema) 118 ml [place] DAILY PRN Constipation 09/17/22 trazodone 100 mg tablet 100 mg PO QHS 09/17/22 simethicone 80 mg chewable tablet (Gas Relief (simethicone)) 80 mg PO BID PRN gi upset 10/28/22 ferrous gluconate 240 mg (27 mg iron) tablet (Ferate) 240 mg PO BID 02/18/23 Hospital Course Summary of Care Provided Minutes Spent on Discharge: 35 Hospital Course: The patient is a 27 y/o M w/ PMHx: Chronic normocytic anemia/iron deficiency anemia, Chronic Systolic CHF, Hx Pericardial Effusion, Secondary Pulmonary HTN, SOPHIA, Morbid Obesity, Chronic Hypotension on Midodrine with suspected underlying adrenal insufficiency, ESRD on HD , 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 Patient was mildly tachycardic and hypotensive and there was concern for infection, ID was consulted due to history of resistant organisms and ultimately patient required ICU and Levophed administration and was diagnosed with undifferentiated shock. He improved with fluids, stress dose steroids and supportive care and is maintained on IV antibiotics per infectious disease however all cultures were no growth to date. Patient improved significantly and ultimately was deemed he did not need any further antibiotics on discharge. Prior to discharge he reported feeling much better and overall well with no acute complaints, he had put 2 L of O2 on as he said his pulse ox had been alarming but was not feeling short of breath and occasionally will have slight cough but with no significant sputum production and no purulence and no other complaints. He did qualify for small amount of O2. Does have chronic respiratory failure and uses NIPPV at night, follows with Dr. Ayoub. No new respiratory complaints, reviewing x-ray patient is very low lung volumes and concerned that this may be further progression of chronic problem. Given no acute respiratory distress or worsening respiratory status with patient consistently being on 2 L throughout his hospitalization feel it is reasonable to discharge home in stable condition with outpatient follow-up. Discharge instructions as follows: -You will need repeat thyroid function tests in the next several weeks to several months, if they are still abnormal you may need to be initiated on Synthroid -Please continue to follow with nephrology and hemodialysis as scheduled -Please take 30mg of your hydrocortisone twice daily tomorrow and return to your home dose of 15 twice daily thereafter -Please call your primary care provider's office upon discharge to schedule a hospital follow up within 1 week. -For any concerning signs or symptoms please call 911 or proceed to the nearest emergency department Physical Exam Narrative General: Alert, oriented, no apparent distress HEENT: Atraumatic, normocephalic Eyes: Normal conjunctiva Neck: Supple Respiratory: No wheezes or rhonchi appreciated, normal respiratory effort Cardiovascular: Regular rate and rhythm GI: Soft, nontender, nondistended Extremities: No edema Musculoskeletal: Moving upper extremities Neuro: No overt focal neurological deficits Skin: No rashes appreciated Psych: Cooperative Weight / BMI Weight Weight: 110.5 kg Body Mass Index (BMI) 44.8 ABG / Lab / Microbiology Data 02/23/23 05:10 02/23/23 05:10 Laboratory: Laboratory Results - last 24 hr 02/23/23 05:10: WBC 10.7, RBC 3.64 L, Hgb 9.4 L, Hct 33.5 L, MCV 92.0, MCH 25.8 L, MCHC 28.1 L, RDW Std Deviation 57.1 H, RDW Coeff of [place] 17.2 H, Plt Count 335, MPV 10.3, Immature Gran % (Auto) 0.800, Neut % (Auto) 61.9, Lymph % (Auto) 23.0, [place] % (Auto) 11.8 H, Eos % (Auto) 1.8, Baso % (Auto) 0.7, Absolute Neuts (auto) 6.6, Absolute Lymphs (auto) 2.45, Nucleated RBC % 0, Sodium 139, Potassium 4.5, Chloride 107, Carbon Dioxide 25.0, Anion Gap 7, BUN 82 H, Creatinine 4.85 H, Estim Creat Clear Calc 17.36, Est GFR (MDRD) Af Amer 18 L, Est GFR (MDRD) Non-Af 15 L, BUN/Creatinine Ratio 16.9, Glucose 80, Calcium 8.2 L, TSH 10.50 H, Free T4 0.98 Microbiology: Microbiology 02/18/23 15:48 Blood Culture (Wb) - Venous Blood Culture - Final Coag Negative Staph 02/18/23 16:10 Blood Culture (Wb) - Anticubital Right Blood Culture - Preliminary No growth in 48 hours. 02/18/23 16:10 Urine, Nephrostomy Urine Culture - Final Culture exhibits no growth. 02/18/23 18:04 Mucosa - Nasopharyngeal Coronavirus COVID-19 PCR - Final 02/18/23 18:04 Mucosa - Nasopharyngeal Respiratory Panel (PCR) - Final 02/18/23 15:48 Nasal Secretion SARS-CoV-2 & FLU Antigen (Rapid) - Final D/C Instructions Discharge Diet: Renal Diet Meaningful Use Info Meaningful Use Diagnoses (Choose all that apply): None applicable Discharge Plan Admission Admit Date/Time: 02/18/23 18:24 Primary Reason for Your Visit: Low blood pressure Attending Provider: Corinne Root Primary Care Provider: Cameron Romero Consulting Providers: Maureen Ferguson; Luis Amador; Amarjit Estevez; Michele Cohen; Cameron Mclean Instructions Patient Instructions: Hemodialysis Additional Instructions / Restrictions: DISCHARGE INSTRUCTIONS PLEASE READ *Please take this with you to your next doctors appointment* -You will need repeat thyroid function tests in the next several weeks to several months, if they are still abnormal you may need to be initiated on Synthroid -Please continue to follow with nephrology and hemodialysis as scheduled -Please take 30mg of your hydrocortisone twice daily tomorrow and return to your home dose of 15 twice daily thereafter -Please call your primary care provider's office upon discharge to schedule a hospital follow up within 1 week. -For any concerning signs or symptoms please call 911 or proceed to the nearest emergency department Discharge Orders/Prescriptions Prescriptions: Continued dextrose [Glucose Gel] 40 % Gel 15 g PO Q15M PRN (Reason: Hypoglycemia) Rx Instructions: until symptoms of low blood sugar are controlled loperamide 2 mg Tablet 2 mg PO Q6H PRN (Reason: Diarrhea) magnesium hydroxide [Milk of Magnesia] 400 mg/5 mL Suspension 400 mg PO DAILY PRN (Reason: Constipation) trazodone 100 mg Tablet 100 mg PO QHS bisacodyl 10 mg Suppository 10 mg [place] DAILY PRN (Reason: Constipation) Fleet Enema 19-7 gram/118 mL Enema 118 ml WA DAILY PRN (Reason: Constipation) sertraline 25 mg Tablet 25 mg PO DAILY gabapentin 100 mg Capsule 100 mg PO DAILY hydrocortisone 10 mg Tablet 15 mg PO BID Hold Instructions: Resume on 09/23/22. midodrine 10 mg Tablet 10 mg PO .QID Rx Instructions: do not give last dose of day after 6PM or within 4 hrs of bedtime ferrous gluconate [Ferate] 240 mg (27 mg iron) tablet 240 mg PO BID Patient Comments: TAKE 1 TABLET BY MOUTH TWICE DAILY WITH WATER OR JUICE BETWEEN MEALS simethicone [Gas Relief (simethicone)] 80 mg tablet,chewable 80 mg PO BID PRN (Reason: gi upset) Discontinued doxycycline monohydrate 100 mg tablet 100 mg PO BID Rx Instructions: X10 DAYS Referrals / Follow Up: Cameron Romero DO [Primary Care Provider] - 03/03/23 9:30 am Disposition Disposition (needs filled in before D/C Order can be placed): Home Health Service Charges/Coding Visit Charges Inpatient E&M: 58755 Disch Hosp >30min
--- NOTE | 2023-02-23 14:45 | PHA.DC.MR.R ---
Pharmacy [place] Med Reconciliation Pharmacy Service has performed discharge medication reconciliation for this patient. The patient's discharge medication list was reviewed for discrepancies and discrepancies were resolved. Medications at Discharge Home Medications bisacodyl 10 mg rectal suppository 10 mg [place] DAILY PRN Constipation 09/17/22 dextrose 40 % oral gel (Glucose Gel) 15 g PO Q15M PRN Hypoglycemia 09/17/22 gabapentin 100 mg capsule 100 mg PO DAILY 09/17/22 hydrocortisone 10 mg tablet 15 mg PO BID 09/17/22 loperamide 2 mg tablet 2 mg PO Q6H PRN Diarrhea 09/17/22 magnesium hydroxide 400 mg/5 mL oral suspension (Milk of Magnesia) 400 mg PO DAILY PRN Constipation 09/17/22 midodrine 10 mg tablet 10 mg PO .QID 09/17/22 sertraline 25 mg tablet 25 mg PO DAILY 09/17/22 sodium phosphates 19 gram-7 gram/118 mL enema (Fleet Enema) 118 ml [place] DAILY PRN Constipation 09/17/22 trazodone 100 mg tablet 100 mg PO QHS 09/17/22 simethicone 80 mg chewable tablet (Gas Relief (simethicone)) 80 mg PO BID PRN gi upset 10/28/22 ferrous gluconate 240 mg (27 mg iron) tablet (Ferate) 240 mg PO BID 02/18/23
--- NOTE | 2023-02-23 15:00 | CASEMGMT ---
NATHALIA PETERSON updated that patient will be discharging today. NATHALIA PETERSON in to discuss needs at discharge. Patient will need home oxygen at discharge. Patient states he prefers [employer]. Patient is active with [facility] and would like to resume services at discharge. Patient had no further questions or concerns at this time. NATHALIA PETERSON updated discharge business planning analyst. Script received for oxygen and referral placed to [employer] with portable tank arranged to be delivered to room.
== END 2023-02-23 17:37 | disposition home health service (06) | DRG 871 ==
LOC: ED 18:11 → PCU 18:36 → ICU 02-19 02:56 → PCU 02-19 02:56 → ICU 02-20 06:32 → PCU 02-21 14:06
PROVIDERS: Internal Medicine; Internal Medicine Infectious Disease; Admitting Provider Family Medicine; Emergency Provider Student in an Organized Health Care Education/Training Program; PCP Family Medicine; Visit Provider Internal Medicine
DX: A41.9 Sepsis, unspecified organism (principal); N18.6 End stage renal disease; R65.21 Severe sepsis with septic shock; J96.12 Chronic respiratory failure with hypercapnia; I13.2 Hypertensive heart and chronic kidney disease with heart failure and with stage 5 chronic kidney disease, or end stage renal disease; G82.20 Paraplegia, unspecified; E27.40 Unspecified adrenocortical insufficiency; Z68.42 Body mass index [BMI] 45.0-49.9, adult; T83.512A Infection and inflammatory reaction due to nephrostomy catheter, initial encounter; I50.22 Chronic systolic (congestive) heart failure; J96.11 Chronic respiratory failure with hypoxia; N10 Acute pyelonephritis; D63.1 Anemia in chronic kidney disease; L89.229 Pressure ulcer of left hip, unspecified stage; E66.01 Morbid (severe) obesity due to excess calories; I50.812 Chronic right heart failure; Z99.2 Dependence on renal dialysis; Q05.9 Spina bifida, unspecified; F32.A Depression, unspecified; D50.9 Iron deficiency anemia, unspecified; I95.89 Other hypotension; K21.9 Gastro-esophageal reflux disease without esophagitis; G47.33 Obstructive sleep apnea (adult) (pediatric); Z98.2 Presence of cerebrospinal fluid drainage device; Z79.2 Long term (current) use of antibiotics
CPT/HCPCS: 36415; 71045; 74176; 80048; 80053; 80170; 81001; 83605; 84439; 84443; 84484; 85025; 85610; 85730; 87040; 87086; 87428; 87633; 87635; 90937; 93005; 94002; 94003; 94640; 94660; 94668; 94762; 99285; J2020; J7030; J7050; J7120; 90686; A4216; G0257; J2405

== ENCOUNTER → 2023-03-03 | Outpatient (CLI) | payer MEDICARE, MEDICAID, SELFPAY ==
[2023-03-03 13:20] LABS: T4 Free Direct 1.22 ng/dL (0.76-1.46)
== END | disposition home or self-care (01) ==
LOC: BFHLAB 10:18
PROVIDERS: PCP Family Medicine; Referring Provider Family Medicine; Visit Provider Family Medicine
DX: R79.89 Other specified abnormal findings of blood chemistry (principal); R53.83 Other fatigue
CPT/HCPCS: 36415; 84439; 84443

== ENCOUNTER → 2023-03-04 | Outpatient (CLI) | payer MEDICARE, MEDICAID, SELFPAY ==
--- NOTE | 2023-03-04 14:42 | AVDS_ITS ---
Reason For Study: ESRD LEFT Lt Inflow - 187.5/110.4 cm/sec Lt Inflow - 373.6 ml/min Prox Anastomosis - 595.1/346.7 cm/s Prox Anastomosis - 743.8 ml/min Prox Graft - 257.6/139.9 cm/s Prox Graft - 2200 ml/min Mid Graft - 63.3/37 cm/s Mid Graft - 815.6 ml/min Dist Graft - 42.5/23.8 cm/s Dist Graft - 756.6 ml/min Lt [place] - 45.9/29.4 cm/s Lt Outflow - 835.5 ml/min. VL/AV Fistula/Dialysis Graft Scan Interpretation Summary Patent AVG and no significant stenosis. Ordering Physician: Werner Bowie Referring Physician: Cameron Romero Performed By: Cristina Galvan RVT
== END | disposition home or self-care (01) ==
LOC: CVS 14:41
PROVIDERS: PCP Family Medicine; Referring Provider Surgery; Visit Provider Surgery
DX: N18.6 End stage renal disease (principal)
CPT/HCPCS: 93990

== ENCOUNTER → 2023-03-12 | Outpatient (CLI) | payer MEDICARE, MEDICAID, SELFPAY ==
--- NOTE | 2023-03-12 14:05 | RAD_ITS ---
PROCEDURE: Right nephrostomy tube removal. DATE OF EXAMINATION: March 12, 2023. INDICATION: Male, 27 years old. Renal failure. RAD/Nephrostomy Tube Exchange IMPRESSION: Successful removal of the right percutaneous nephrostomy catheter. Electronically Signed: Jesus Alberto Munoz MD at 14:46 EST ,
--- NOTE | 2023-03-12 14:28 | PCM.OP.PRO ---
Procedure Report Date of Procedure: 03/12/23 The patient was transferred from wheelchair to cot via Jessy lift. The patient was then brought to fluoroscopy room number #2, transferred to the exam table, and positioned supine by the technologist staff. The right nephrostomy tube was cut with scissors from a sterile accessory kit. The nephrostomy tube was removed without difficulty. Fluoroscopy was not necessary. An OpSite dressing was applied to the right lower quadrant nephrostomy site. The tubing and leg bag was properly disposed of. The patient was then transferred back to cot and wheelchair again by assistance of the technologist staff and Jessy lift. Patient is to follow-up with providers as needed.
== END | disposition home or self-care (01) ==
LOC: RAD 13:49
PROVIDERS: PCP Family Medicine; Referring Provider Family Medicine; Visit Provider Family Medicine
DX: T83.83XA Hemorrhage due to genitourinary prosthetic devices, implants and grafts, initial encounter (principal)
CPT/HCPCS: 50435

== ENCOUNTER 2023-03-16 13:42 | Inpatient (IN) | payer MEDICARE, MEDICAID, SELFPAY ==
[2023-03-16] VITALS (25 sets, daily range): BP systolic 81–152; BP diastolic 40–80; PULSE 95–128; RESP 15–25; TEMP 36.3–37.8; O2SAT 88–100; BMI 44.9; BMI 45.4
--- NOTE | 2023-03-16 14:04 | EX.ED.DYSGE1 ---
HPI <LEXX Feliciano - Last Filed: 03/16/23 21:07> History of Present Illness Chief Complaint: Fever Narrative Narrative: 27-year-old male with past medical history of spina bifida, ESRD on home dialysis 5 days a week, orthostatic hypotension, states he developed a fever and fatigue yesterday. A home COVID test was positive. Today he felt off so he checked his blood pressure and it was low and he took tylenol and midodrine around 10:30 AM. He takes this as needed for hypotension. He denies cough or shortness of breath but was found to be hypoxic here and placed on 2 L O2. He states he has oxygen at home to use as needed but doesn't need it much. His last dialysis session was yesterday. He was supposed to have his weekly labs drawn today but did not due to illness. 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, stage 3 Pressure ulcer Right-sided heart failure Secondary pulmonary arterial hypertension Sleep apnea Spina bifida Systolic CHF Umbilical hernia Home Medications gabapentin 100 mg capsule 100 mg PO DAILY NEUROPATHY 09/17/22 [History Last Taken 03/16/23] hydrocortisone 10 mg tablet 15 mg PO DAILY ALLERGIES 09/17/22 [History Last Taken 03/16/23] loperamide 2 mg tablet 2 mg PO Q6H PRN DIARRHEA 09/17/22 [History Last Taken Unknown] magnesium hydroxide 400 mg/5 mL oral suspension (Milk of Magnesia) 400 mg PO DAILY PRN CONSTIPATION 09/17/22 [History Last Taken Unknown] midodrine 10 mg tablet 10 mg PO DAILY PRN DIZZINESS 09/17/22 [History Last Taken Unknown] sertraline 25 mg tablet 25 mg PO DAILY DEPRESSION 09/17/22 [History Last Taken 03/16/23] trazodone 100 mg tablet 100 mg PO QHS SLEEP 09/17/22 [History Last Taken 03/15/23] simethicone 80 mg chewable tablet (Gas Relief (simethicone)) 80 mg PO BID PRN GAS RELIEF 10/28/22 [History Last Taken Unknown] ferrous gluconate 240 mg (27 mg iron) tablet (Ferate) 240 mg PO BID SUPPLEMENT 02/18/23 [History Last Taken 03/16/23] hydrocortisone 10 mg tablet 10 mg PO QHS ALLERGIES 03/16/23 [History Last Taken 03/15/23] levothyroxine 75 mcg tablet 75 mcg PO DAILY THYROID 03/16/23 [History Last Taken 03/16/23] sevelamer carbonate 800 mg tablet 800 mg PO TIDCM KIDNEYS 03/16/23 [History Last Taken 03/16/23] Allergy/AdvReac Type Severity Reaction Status Date / Time ampicillin Allergy rash Verified 03/16/23 13:44 daptomycin Allergy Hives Verified 03/16/23 13:44 fentanyl Allergy Rash Verified 03/16/23 13:44 latex Allergy Hives Verified 03/16/23 13:44 meropenem Allergy rash Verified 03/16/23 13:44 morphine Allergy Hives Verified 03/16/23 13:44 sulbactam [From Unasyn] Allergy Hives Verified 03/16/23 13:44 vancomycin Allergy Hives Verified 03/16/23 13:44 Family History Grandfather Heart disease Father Hypertension Mother Hyperlipidemia Surgical History History of back surgery History of foot surgery History of kidney surgery History of ventriculoperitoneal shunting S/P cutaneous-vesicostomy S/P ureteral stent placement Status post laser lithotripsy of ureteral calculus Social History household members: family Smoking Status: Never smoker second hand exposure: Yes alcohol intake: never substance use type: does not use ROS <LEXX Feliciano - Last Filed: 03/16/23 21:07> ROS ED ROS Narrative Constitutional: Positive for fever, malaise. ENT: Negative for sore throat, ear pain, rhinorrhea. CVS: Negative for chest pain, syncope. Respiratory: Negative for shortness of breath, cough. GI: Negative for abdominal pain, nausea, vomiting, diarrhea. Neuro: Negative for headache. EXAM <LEXX Feliciano - Last Filed: 03/16/23 21:07> Physical Exam Narrative Exam Narrative: CONST: Obese male sitting in motorized wheelchair no distress EYES: Normal inspection. ENT: Normal inspection, moist mucous membranes. NECK: Normal inspection. RESP: No respiratory distress, CTAB. Wearing 2 L NC. CVS: Regular rate and rhythm, no murmur, no gallop. SKIN: Quarter-sized wound right inferior medial buttock with bloody serous drainage. No purulent drainage, no smell, no erythema or warmth. EXTREMITIES: Normal appearance. NEURO: Oriented x4. PSYCH: Normal affect. Const Vital Signs: 03/16/23 13:44 03/16/23 14:15 03/16/23 13:44 Temperature 100.0 F H Temperature Source Oral Pulse Rate 114 H 109 H Respiratory Rate 24 H 16 Respiratory Effort Short of Breath Respiratory Pattern Tachypnea Blood Pressure 92/56 L Blood Pressure Mean 68 Blood Pressure Position Blood Pressure Location Pulse Ox 88 94 Oxygen Delivery Method Room Air Room Air Oxygen Flow Rate (L/min) 2 03/16/23 14:20 03/16/23 14:41 03/16/23 14:41 Temperature 98.7 F 98.7 F Temperature Source Oral Oral Pulse Rate 110 H 114 H 115 H Respiratory Rate 20 H 15 15 Respiratory Effort Respiratory Pattern Blood Pressure 88/40 L 91/52 L 91/52 L Blood Pressure Mean 56 65 65 Blood Pressure Position Blood Pressure Location Pulse Ox 96 96 96 Oxygen Delivery Method Nasal Cannula Nasal Cannula Nasal Cannula Oxygen Flow Rate (L/min) 2 2 2 03/16/23 15:00 03/16/23 15:43 03/16/23 16:00 Temperature 97.3 F L Temperature Source Oral Pulse Rate 105 H 105 H 103 H Respiratory Rate 16 21 H 22 H Respiratory Effort Respiratory Pattern Blood Pressure 83/43 L 93/47 L 87/44 L Blood Pressure Mean 56 62 58 Blood Pressure Position Blood Pressure Location Pulse Ox 96 94 93 Oxygen Delivery Method Room Air Nasal Cannula Nasal Cannula Oxygen Flow Rate (L/min) 2 2 03/16/23 16:34 03/16/23 16:34 03/16/23 16:52 Temperature 97.3 F L 97.3 F L 98.6 F Temperature Source Oral Oral Oral Pulse Rate 101 H 101 H 95 Respiratory Rate 20 H 20 H 20 H Respiratory Effort Respiratory Pattern Blood Pressure 101/47 L 101/47 L 81/40 L Blood Pressure Mean 65 65 53 Blood Pressure Position Blood Pressure Location Pulse Ox 96 95 96 Oxygen Delivery Method Nasal Cannula Nasal Cannula Nasal Cannula Oxygen Flow Rate (L/min) 2 2 2 03/16/23 17:00 03/16/23 17:00 03/16/23 17:51 Temperature 97.3 F L Temperature Source Temporal Pulse Rate 96 98 95 Respiratory Rate 16 20 H 20 H Respiratory Effort Respiratory Pattern Blood Pressure 94/45 L 94/45 L 95/45 L Blood Pressure Mean 61 61 61 Blood Pressure Position Semi-Fowlers Blood Pressure Location Right Forearm Pulse Ox 98 96 97 Oxygen Delivery Method Nasal Cannula Nasal Cannula Nasal Cannula Oxygen Flow Rate (L/min) 2 2 2 03/16/23 18:00 03/16/23 18:00 03/16/23 18:43 Temperature 97.3 F L Temperature Source Temporal Pulse Rate 97 98 100 Respiratory Rate 22 H 23 H 21 H Respiratory Effort Respiratory Pattern Blood Pressure 111/53 L 111/53 L 116/57 L Blood Pressure Mean 72 72 76 Blood Pressure Position Semi-Fowlers Blood Pressure Location Right Forearm Pulse Ox 99 99 99 Oxygen Delivery Method Nasal Cannula Nasal Cannula Nasal Cannula Oxygen Flow Rate (L/min) 2 2 2 03/16/23 19:00 03/16/23 20:00 Temperature Temperature Source Pulse Rate 107 H 106 H Respiratory Rate 19 H 21 H Respiratory Effort Respiratory Pattern Blood Pressure 105/50 L 111/49 L Blood Pressure Mean 68 69 Blood Pressure Position Blood Pressure Location Pulse Ox 100 96 Oxygen Delivery Method Nasal Cannula Nasal Cannula Oxygen Flow Rate (L/min) 2 2 <Dr. Eugenio Mayorga MD - Last Filed: 03/16/23 20:30> Physical Exam Const Vital Signs: 03/16/23 13:44 03/16/23 14:15 03/16/23 13:44 Temperature 100.0 F H Temperature Source Oral Pulse Rate 114 H 109 H Respiratory Rate 24 H 16 Respiratory Effort Short of Breath Respiratory Pattern Tachypnea Blood Pressure 92/56 L Blood Pressure Mean 68 Blood Pressure Position Blood Pressure Location Pulse Ox 88 94 Oxygen Delivery Method Room Air Room Air Oxygen Flow Rate (L/min) 2 03/16/23 14:20 03/16/23 14:41 03/16/23 14:41 Temperature 98.7 F 98.7 F Temperature Source Oral Oral Pulse Rate 110 H 114 H 115 H Respiratory Rate 20 H 15 15 Respiratory Effort Respiratory Pattern Blood Pressure 88/40 L 91/52 L 91/52 L Blood Pressure Mean 56 65 65 Blood Pressure Position Blood Pressure Location Pulse Ox 96 96 96 Oxygen Delivery Method Nasal Cannula Nasal Cannula Nasal Cannula Oxygen Flow Rate (L/min) 2 2 2 03/16/23 15:00 03/16/23 15:43 03/16/23 16:00 Temperature 97.3 F L Temperature Source Oral Pulse Rate 105 H 105 H 103 H Respiratory Rate 16 21 H 22 H Respiratory Effort Respiratory Pattern Blood Pressure 83/43 L 93/47 L 87/44 L Blood Pressure Mean 56 62 58 Blood Pressure Position Blood Pressure Location Pulse Ox 96 94 93 Oxygen Delivery Method Room Air Nasal Cannula Nasal Cannula Oxygen Flow Rate (L/min) 2 2 03/16/23 16:34 03/16/23 16:34 03/16/23 16:52 Temperature 97.3 F L 97.3 F L 98.6 F Temperature Source Oral Oral Oral Pulse Rate 101 H 101 H 95 Respiratory Rate 20 H 20 H 20 H Respiratory Effort Respiratory Pattern Blood Pressure 101/47 L 101/47 L 81/40 L Blood Pressure Mean 65 65 53 Blood Pressure Position Blood Pressure Location Pulse Ox 96 95 96 Oxygen Delivery Method Nasal Cannula Nasal Cannula Nasal Cannula Oxygen Flow Rate (L/min) 2 2 2 03/16/23 17:00 03/16/23 17:00 03/16/23 17:51 Temperature 97.3 F L Temperature Source Temporal Pulse Rate 96 98 95 Respiratory Rate 16 20 H 20 H Respiratory Effort Respiratory Pattern Blood Pressure 94/45 L 94/45 L 95/45 L Blood Pressure Mean 61 61 61 Blood Pressure Position Semi-Fowlers Blood Pressure Location Right Forearm Pulse Ox 98 96 97 Oxygen Delivery Method Nasal Cannula Nasal Cannula Nasal Cannula Oxygen Flow Rate (L/min) 2 2 2 03/16/23 18:00 03/16/23 18:00 03/16/23 18:43 Temperature 97.3 F L Temperature Source Temporal Pulse Rate 97 98 100 Respiratory Rate 22 H 23 H 21 H Respiratory Effort Respiratory Pattern Blood Pressure 111/53 L 111/53 L 116/57 L Blood Pressure Mean 72 72 76 Blood Pressure Position Semi-Fowlers Blood Pressure Location Right Forearm Pulse Ox 99 99 99 Oxygen Delivery Method Nasal Cannula Nasal Cannula Nasal Cannula Oxygen Flow Rate (L/min) 2 2 2 03/16/23 19:00 03/16/23 20:00 Temperature Temperature Source Pulse Rate 107 H 106 H Respiratory Rate 19 H 21 H Respiratory Effort Respiratory Pattern Blood Pressure 105/50 L 111/49 L Blood Pressure Mean 68 69 Blood Pressure Position Blood Pressure Location Pulse Ox 100 96 Oxygen Delivery Method Nasal Cannula Nasal Cannula Oxygen Flow Rate (L/min) 2 2 Sepsis Attestation <Dr. Eugenio Mayorga MD - Last Filed: 03/16/23 20:30> Sepsis Alert: Yes Sepsis Attestation: Agree w/Sepsis Date exam was performed: 03/16/23 Time exam was performed: 14:46 Sepsis Organ Dysfunction Criteria Present: SBP < 90 mmHg or MAP < 65 mmHg and New/Unexplained change in mental status Fluid Resuscitation Fluid resuscitation indicated?: Yes Fluid Resuscitation ordered: Lesser volume fluid bolus ordered Amount of fluid ordered: 500 Reason for lesser fluid bolus:: Concern for fluid overload, Heart failure, Renal Failure and BP Responded to a lesser volume Sepsis Note Date exam was performed: 03/16/23 Time exam was performed: 16:15 Sepsis Attestation: Sepsis re-evaluation was performed Response to fluids: Fluid responsive hypotension MDM <LEXX Feliciano - Last Filed: 03/16/23 21:07> MDM MDM Narrative Medical decision making narrative: History gathered from patient and father Patient developed a fever and fatigue yesterday and had a positive COVID test. He presents for evaluation. He has no other associated symptoms. BP is 92/56, HR 114, RR 24, temperature 100.0 F, 80% on room air. He was placed on 2 L nasal cannula. He does have oxygen at home to wear as needed. He also has a history of orthostatic hypotension and took midodrine at 10:30 AM today. Clinically does not look toxic. Heart is rapid but regular. Lungs clear. Small sacral wound is quarter sized and does not appear acutely infected. There is no visible bone. He states open wound care settings improving. I ordered IV 500 cc bolus and a sepsis work-up. In the past he has been bacteremic and had several MRSA infections so I want to start empiric antibiotic coverage. He has multiple allergies so I ordered clindamycin and gentamicin. Labs show white count of 21. Hemoglobin 9.4 is stable. Creatinine 5.78 from ESRD with normal electrolytes. Lactate was 2.5 and after fluids improved to 0.7. CXR film is very limited so it is hard to discern if there is an infiltrate but it was read as no acute findings. COVID/flu negative. Patient's blood pressure continues to drop ranging anywhere from 70-90 systolic. He transiently responds to fluid boluses and is receiving 500 cc at a time. Currently had a total of 2 L. Patient requires admission to the ICU for persistent hypotension and sepsis with unknown source. Attending discussed with the hospitalist starting vasopressors. Peripheral Levophed was ordered as well as a CT abdomen/pelvis as he recently had a nephrostomy tube to rule out a renal source of infection. He had a nephrostomy tube for a kidney infection months ago placed at [facility] and the tube was never removed. His father states they were changing it regularly and it was removed last week. CT shows right hydronephrosis with hydroureter. He would likely need another nephrostomy tube and this may be the source of his infection. Patient was admitted to the ICU. His blood pressure has improved after peripheral Levophed and is now 134/73. 35 minutes of critical care time was consumed by session with patient and family, treatment and planning, discussion with sharepoint consultant I have personally performed a face to face assessment of the patient and have reviewed the BASIL Note. I performed a substantive portion of the visit including all aspects of the following. My martinez findings include: History is remarkable for history of end-stage renal disease on hemodialysis at home. Father states he is dialyzed 5 times a week. Fistula site appears normal per patient and father. He does have history of hypotension due to chronic systolic heart failure. Requiring midodrine. Reports he had a positive home COVID test last night. He is presently requiring oxygen. He does have oxygen at home. He occasionally does not need to use oxygen. He denies sputum production. He denies chest discomfort. He denies nausea vomiting. He has had diarrhea that started today. He has not noted any rash or lesions. He had a nephrostomy tube recently removed. Approximately 2 months ago he was bacteremic. Review of prior records indicates patient had several infections with MRSA as well as gram-negative organisms. Patient still makes urine. He does endorse fever and chills. Source of his last infection was unknown. Exam is an obese gentleman. He is febrile, tachycardic, tachypneic and hypotensive. He does not appear well. He is awake but not alert. Mucosa slightly dry. Head is atraumatic normocephalic. Ears are normal. Nares are patent. There is no tenderness over the frontal, ethmoid or maxillary sinuses. Neck is supple. He does have a scar secondary to prior tracheostomy. Lungs reveal diminished breath sounds. There is no obvious rales, rhonchi or wheezing. He does have adventitial breath sounds. Heart is rapid and regular. Abdomen is soft nontender. We will need to assess his sacral decubitus to rule out source of infection. Medical Decision Making concern patient is bacteremic/septic. Because of his history of chronic systolic congestive heart failure he was only given a 500 cc bolus of normal saline. Because of his allergies he was treated with clindamycin and gentamicin for gram-positive, anaerobic, MRSA and gram-negative coverage based on prior blood culture results and sensitivity. Other additions or changes: The wound has a small opening. It has bloody serous drainage. There is no purulent drainage noted. There is no erythema or warmth noted. There is no exposed bone. Patient does respond to IV fluids. Will start on low-dose Levophed peripherally., 1712. Patient had a significant drop in blood pressure and will receive an additional 500 cc bolus. Apparently patient/family wanted the nephrostomy tubes removed. In light of this and with no obvious source and on prior presentations a source was urologic will obtain CT of the abdomen pelvis to assess his kidneys for inflammation, hydronephrosis etc. Lab Data Attestation: I reviewed the patient's lab results. Labs: Laboratory Results - last 24 hr 03/16/23 03/16/23 03/16/23 14:20 14:30 19:07 WBC 21.0 H RBC 3.52 L Hgb 9.4 L Hct 32.1 L MCV 91.2 MCH 26.7 L MCHC 29.3 L RDW Std Deviation 57.6 H RDW Coeff of Francisco 17.3 H Plt Count 280 MPV 11.0 Immature Gran % (Auto) 0.600 Neut % (Auto) 79.8 H Lymph % (Auto) 7.4 L Thayer % (Auto) 10.5 H Eos % (Auto) 1.1 Baso % (Auto) 0.6 Absolute Neuts (auto) 16.7 H Absolute Lymphs (auto) 1.55 Nucleated RBC % 0 Differential Comment SCANNED Diff Path Review August Sodium 138 Potassium 4.2 Chloride 99 Carbon Dioxide 30.0 Anion Gap 9 BUN 61 H Creatinine 5.78 H Estim Creat Clear Calc 14.56 Est GFR (MDRD) Af Amer 15 L Est GFR (MDRD) Non-Af 12 L BUN/Creatinine Ratio 10.6 Glucose 152 H Lactic Acid 2.5 H* 0.7 Calcium 8.5 Radiography Diagnostic Testing: Clinical Impression(s) from Imaging Studies Chest X-Ray 03/16/23 14:13 IMPRESSION: Limited inspiratory effort due to the patient''s medical condition. No acute abnormality is seen. Electronically Signed: Jesus Alberto Munoz MD at 14:56 EST , Abdomen/Pelvis CT 03/16/23 16:59 IMPRESSION: Enlarged liver and spleen. No sign of bowel obstruction. Right hydronephrosis with right hydroureter. Nonobstructing right renal calculi. Electronically Signed: Lauro Galaviz DO at 20:19 EST , ED attending interpretation 1 view chest x-ray is very limited based on body habitus and poor inspiration, no acute infiltrate <Dr. Eugenio Mayorga MD - Last Filed: 03/16/23 20:30> [facility] Narrative Medical decision making narrative: History gathered from patient and father Patient developed a fever and fatigue yesterday and had a positive COVID test. He presents for evaluation. He has no other associated symptoms. BP is 92/56, HR 114, RR 24, temperature 100.0 F, 80% on room air. He was placed on 2 L nasal cannula. He does have oxygen at home to wear as needed. He also has a history of orthostatic hypotension and took midodrine at 10:30 AM today. Clinically does not look toxic. Heart is rapid but regular. Lungs clear. Small sacral wound is quarter sized and does not appear acutely infected. There is no visible bone. He states open wound care settings improving. I ordered IV 500 cc bolus and a sepsis work-up. In the past he has been bacteremic and had several MRSA infections so I want to start empiric antibiotic coverage. He has multiple allergies so I ordered clindamycin and gentamicin. Labs show white count of 21. Hemoglobin 9.4 is stable. Creatinine 5.78 from ESRD with normal electrolytes. Lactate 2.5. CXR film is very limited so it is hard to discern if there is an infiltrate but it was read as no acute findings. COVID/flu negative. Patient's blood pressure continues to drop ranging anywhere from 70-90 systolic. He does respond to fluid boluses and is receiving 500 cc at a time. Currently had a total of 1.5 L. Patient will require admission to the ICU for persistent hypotension and sepsis with unknown source. I have personally performed a face to face assessment of the patient and have reviewed the BASIL Note. I performed a substantive portion of the visit including all aspects of the following. My martinez findings include: History is remarkable for history of end-stage renal disease on hemodialysis at home. Father states he is dialyzed 5 times a week. Fistula site appears normal per patient and father. He does have history of hypotension due to chronic systolic heart failure. Requiring midodrine. Reports he had a positive home COVID test last night. He is presently requiring oxygen. He does have oxygen at home. He occasionally does not need to use oxygen. He denies sputum production. He denies chest discomfort. He denies nausea vomiting. He has had diarrhea that started today. He has not noted any rash or lesions. He had a nephrostomy tube recently removed. Approximately 2 months ago he was bacteremic. Review of prior records indicates patient had several infections with MRSA as well as gram-negative organisms. Patient still makes urine. He does endorse fever and chills. Source of his last infection was unknown. Exam is an obese gentleman. He is febrile, tachycardic, tachypneic and hypotensive. He does not appear well. He is awake but not alert. Mucosa slightly dry. Head is atraumatic normocephalic. Ears are normal. Nares are patent. There is no tenderness over the frontal, ethmoid or maxillary sinuses. Neck is supple. He does have a scar secondary to prior tracheostomy. Lungs reveal diminished breath sounds. There is no obvious rales, rhonchi or wheezing. He does have adventitial breath sounds. Heart is rapid and regular. Abdomen is soft nontender. We will need to assess his sacral decubitus to rule out source of infection. Medical Decision Making concern patient is bacteremic/septic. Because of his history of chronic systolic congestive heart failure he was only given a 500 cc bolus of normal saline. Because of his allergies he was treated with clindamycin and gentamicin for gram-positive, anaerobic, MRSA and gram-negative coverage based on prior blood culture results and sensitivity. Other additions or changes: The wound has a small opening. It has bloody serous drainage. There is no purulent drainage noted. There is no erythema or warmth noted. There is no exposed bone. Patient does respond to IV fluids. Will start on low-dose Levophed peripherally., 1712. Patient had a significant drop in blood pressure and will receive an additional 500 cc bolus. Apparently patient/family wanted the nephrostomy tubes removed. In light of this and with no obvious source and on prior presentations a source was urologic will obtain CT of the abdomen pelvis to assess his kidneys for inflammation, hydronephrosis etc. Lab Data Labs: Laboratory Results - last 24 hr 03/16/23 03/16/23 03/16/23 14:20 14:30 19:07 WBC 21.0 H RBC 3.52 L Hgb 9.4 L Hct 32.1 L MCV 91.2 MCH 26.7 L MCHC 29.3 L RDW Std Deviation 57.6 H RDW Coeff of Francisco 17.3 H Plt Count 280 MPV 11.0 Immature Gran % (Auto) 0.600 Neut % (Auto) 79.8 H Lymph % (Auto) 7.4 L Thayer % (Auto) 10.5 H Eos % (Auto) 1.1 Baso % (Auto) 0.6 Absolute Neuts (auto) 16.7 H Absolute Lymphs (auto) 1.55 Nucleated RBC % 0 Differential Comment SCANNED Diff Path Review May foll Sodium 138 Potassium 4.2 Chloride 99 Carbon Dioxide 30.0 Anion Gap 9 BUN 61 H Creatinine 5.78 H Estim Creat Clear Calc 14.56 Est GFR (MDRD) Af Amer 15 L Est GFR (MDRD) Non-Af 12 L BUN/Creatinine Ratio 10.6 Glucose 152 H Lactic Acid 2.5 H* 0.7 Calcium 8.5 Radiography Chest X-Ray - ED: 1 View and Read by ED Physician (Limited inspiratory volume. Only f4 ribs seen. Study is very limited. Medina rods noted. This was independently reviewed interpreted by me at 1450) Diagnostic Testing: Clinical Impression(s) from Imaging Studies Chest X-Ray 03/16/23 14:13 IMPRESSION: Limited inspiratory effort due to the patient''s medical condition. No acute abnormality is seen. Electronically Signed: Jesus Alberto Munoz MD at 14:56 EST , Abdomen/Pelvis CT 03/16/23 16:59 IMPRESSION: Enlarged liver and spleen. No sign of bowel obstruction. Right hydronephrosis with right hydroureter. Nonobstructing right renal calculi. Electronically Signed: Lauro Galaviz DO at 20:19 EST , Management Discussion w/another healthcare provider: Hospitalist <Dr. Eugenio Mayorga MD - Last Filed: 03/16/23 20:30> Critical Care Time Critical Care Time: Yes Critical care time (excluding procedures): 30-74 minutes (47), Including time spent: (History, physical, documentation, independent interpretation of labs results and chest x-ray and initiation of therapy for sepsis with endorgan dysfunction.), Discussing w/Patient &/or Family/Slab Installer (Patient and father have been informed of laboratory results and need for admission.), Discussing w/Consultants and Arranging Admission or Transfer Discharge Plan Dx/Rx/DC Orders Clinical Impression: SIRS due to infectious process with organ dysfunction, Paraplegia, Secondary pulmonary arterial hypertension, Chronic systolic (congestive) heart failure, Spina bifida, ESRD (end stage renal disease), Decubitus ulcer, Acute hypotension, Acute hypoxic respiratory failure, Hydronephrosis of right kidney Disposition Disposition: [facility]
--- NOTE | 2023-03-16 14:13 | RAD_ITS ---
STUDY: X-RAY CHEST REASON FOR EXAM: Male, 27 years old. Dyspnea TECHNIQUE: Single AP portable view of the chest. Limited study due to the patient''s condition. COMPARISON: Comparison is made with prior study February 18, 2023. FINDINGS: A right-sided ventriculoperitoneal shunt tube is seen. Poor inspiratory effort. No acute infiltrate is seen. There is no demonstrated pleural abnormality. Normal size heart. Normal mediastinum and akira. Normal visualized pulmonary arteries. Normal visualized aortic arch and descending thoracic aorta. Intramedullary dl fixation in the thoracic spine. Normal visualized ribs, clavicles, and shoulders. There is no demonstrated abnormality of the visualized soft tissue structures of the upper abdomen. RAD/Chest 1 View (Portable) IMPRESSION: Limited inspiratory effort due to the patient''s medical condition. No acute abnormality is seen. Electronically Signed: Jesus Alberto Munoz MD at 14:56 EST ,
[2023-03-16] MEDS: 0.9% Normal Saline (500mL Bag) 500 ML 999 ML IV ×4 (14:29→16:48)
[2023-03-16 14:35] LABS: Absolute Lymphocyte Count 1.55 X10^3/uL (0.83-4.51); Absolute Neutrophil Count 16.7 X10^3/uL (2.0-7.7); Basophil# 0.13 X10^3/uL; Basophil% 0.6 % (0-1); Eosinophil# 0.23 X10^3/uL; Eosinophils% 1.1 % (0-5); Hematocrit 32.1 % (40-54); Hemoglobin 9.4 g/dL (13.0-16.5); Lymphocyte # 1.55 X10^3/ul (0.83-4.51); Lymphocyte % 7.4 % (19-41); Mean Corp Hgb Conc 29.3 g/dL (32-36); Mean Corpuscular Hgb 26.7 pg (27.0-32.0); Mean Corpuscular Volume 91.2 fL (80-94); Monocyte% 10.5 % (0-10); NRBC Flagged by Analyzer 0 % (0-5); Neutrophil # 16.74 X10^3/uL (2.7-7.7); Neutrophil % 79.8 % (47-70); POSITIVE DIFFERENTIAL YES; Platelet Count 280 K/mm3 (150-450); RBC Distribution Width CV 17.3 % (11.6-14.6); RBC Distribution Width SD 57.6 fl (35.1-43.9); Red Blood Count 3.52 M/mm3 (4.6-6.2)
[2023-03-16 14:38] LABS: Differential Indicated SCAN CRITERIA MET
[2023-03-16 14:41] LABS: Anion Gap 9 (5-15); BUN 61 mg/dL (7-18); BUN/Creat Ratio 10.6 RATIO (10-20); Calcium,Total 8.5 mg/dL (8.5-10.1); Chloride 99 mmol/L (98-107); Creatinine, Serum 5.78 mg/dL (0.70-1.30); EST Glomerular Filtration Rate 12 mL/min (>60); Est Glom Filt Rate - Afr Amer 15 mL/min (>60); Estimated Creatinine Clearance 14.56 ml/min; Glucose 152 mg/dL (74-106); Potassium 4.2 mmol/L (3.5-5.1); Sodium Level 138 mmol/L (136-145)
[2023-03-16 15:19] LABS: Lactic Acid 2.5 mmol/L (0.4-1.9)
[2023-03-16 15:27] LABS: Differential Comment SCANNED
[2023-03-16] MEDS: Clindamycin 900 MG/50 ML BAG 75 MG IV (16:06)
--- NOTE | 2023-03-16 16:41 | PCM.HP.STD ---
HPI - General General Date of Admission: 03/16/23 Date of Service: 03/16/23 Chief Complaint: Fever, fatigue, malaise, + home COVID test. HPI Narrative The patient is a 27 y/o M w/ PMHx: Chronic normocytic anemia/iron deficiency anemia, Chronic Systolic CHF, Hx Pericardial Effusion, Secondary Pulmonary HTN, SOPHIA, Morbid Obesity, Chronic Hypotension on Midodrine with suspected underlying adrenal insufficiency, ESRD on HD , Spina bifida s/p AIR[employer] shunt (nonfunctional) w/ paraplegic immobility syndrome w/ chronic indwelling catheter following w/ Urologist at [facility] w/ history of nephrolithiasis w/ stents in the past and chronic right nephrostomy tube recently d/c 03/12/23 of note, recent discharge 02/23/2023 with complicated UTI with undifferentiated shock felt multifactorial evaluated per infectious disease and discharged on doxycycline 100 mg twice daily for an additional 10 days who now represents to the [facility] ED on 03/16/23 with history of onset again of fever and fatigue starting the day prior with a home COVID test noted to be positive with self blood pressure assessment noted to be low prompting him to take midodrine as well as Tylenol with no recent cough, dyspnea however in the ED he was noted to be hypoxic however he is on chronic supplementation at home with last dialysis noted to be the day prior prompting eventual ED evaluation. Work-up in the ED included Tmax 100, heart rate 114, BP 92/56, respiratory rate 24, initially 88% on room air with most recent vital signs T97.3, heart rate 101, BP 101/47, respiratory rate 20, 95% on 2 L nasal cannula, CBC with WBC 21, hemoglobin 9.4, MCV 91.2, platelet 280 with significant left shift, BMP with BUN/creatinine 61/5.78, glucose 152, lactic acid 2.5, chest x-ray with limited inspiratory effort secondary to patient habitus and condition, SARS COVID and influenza antigen negative, blood culture x2 pending per ED, full respiratory viral panel pending per ED. in the ED patient administered 2 L normal saline as well as IV clindamycin and gentamicin. Discussed current presentation with his PCP and he noted that family/patient had declined nephrostomy tube re-insertion with removal on 03/12/23. Given patient with no obvious pulmonary source and recent d/c nephrostomy tube with current presentation discussed with ED physician and CT A/P obtained with noted enlarged liver and spleen, no evidence of any bowel obstruction, right hydronephrosis and right hydroureter with a nonobstructing right renal calculi. Following aggressive ED hydration repeat lactic acid down to 0.7. Given persistent hypotension norepinephrine drip started per ED physician. Given findings on CT reviewed with Urology Dr. Cohen who agreed with plan and noted intention to evaluate. 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, stage 3 Pressure ulcer Right-sided heart failure Secondary pulmonary arterial hypertension Sleep apnea Spina bifida Systolic CHF Umbilical hernia Home Medications gabapentin 100 mg capsule 100 mg PO DAILY NEUROPATHY 09/17/22 [History Last Taken 03/16/23] hydrocortisone 10 mg tablet 15 mg PO DAILY ALLERGIES 09/17/22 [History Last Taken 03/16/23] loperamide 2 mg tablet 2 mg PO Q6H PRN DIARRHEA 09/17/22 [History Last Taken Unknown] magnesium hydroxide 400 mg/5 mL oral suspension (Milk of Magnesia) 400 mg PO DAILY PRN CONSTIPATION 09/17/22 [History Last Taken Unknown] midodrine 10 mg tablet 10 mg PO DAILY PRN DIZZINESS 09/17/22 [History Last Taken Unknown] sertraline 25 mg tablet 25 mg PO DAILY DEPRESSION 09/17/22 [History Last Taken 03/16/23] trazodone 100 mg tablet 100 mg PO QHS SLEEP 09/17/22 [History Last Taken 03/15/23] simethicone 80 mg chewable tablet (Gas Relief (simethicone)) 80 mg PO BID PRN GAS RELIEF 10/28/22 [History Last Taken Unknown] ferrous gluconate 240 mg (27 mg iron) tablet (Ferate) 240 mg PO BID SUPPLEMENT 02/18/23 [History Last Taken 03/16/23] hydrocortisone 10 mg tablet 10 mg PO QHS ALLERGIES 03/16/23 [History Last Taken 03/15/23] levothyroxine 75 mcg tablet 75 mcg PO DAILY THYROID 03/16/23 [History Last Taken 03/16/23] sevelamer carbonate 800 mg tablet 800 mg PO TIDCM KIDNEYS 03/16/23 [History Last Taken 03/16/23] Allergy/AdvReac Type Severity Reaction Status Date / Time ampicillin Allergy rash Verified 03/16/23 13:44 daptomycin Allergy Hives Verified 03/16/23 13:44 fentanyl Allergy Rash Verified 03/16/23 13:44 latex Allergy Hives Verified 03/16/23 13:44 meropenem Allergy rash Verified 03/16/23 13:44 morphine Allergy Hives Verified 03/16/23 13:44 sulbactam [From Unasyn] Allergy Hives Verified 03/16/23 13:44 vancomycin Allergy Hives Verified 03/16/23 13:44 Family History Grandfather Heart disease Father Hypertension Mother Hyperlipidemia Surgical History History of back surgery History of foot surgery History of kidney surgery History of ventriculoperitoneal shunting S/P cutaneous-vesicostomy S/P ureteral stent placement Status post laser lithotripsy of ureteral calculus Social History household members: family Smoking Status: Never smoker second hand exposure: Yes alcohol intake: never substance use type: does not use ROS ROS Narrative Admission Review of Systems: CONSTITUTIONAL: No weight loss, + fever, chills, weakness or fatigue. HEENT: Eyes: No visual loss, blurred vision, double vision or yellow sclerae. Ears, Nose, Throat: No hearing loss, sneezing, sore throat, congestion, rhinorrhea. SKIN: + chronic stasis/decub ulcers, frequent intertrigo. CARDIOVASCULAR: + Chronic peripheral edema, unchanged. No chest pain, chest pressure or chest discomfort, palpitations, orthopnea, syncopal events. RESPIRATORY: No marked dyspnea, cough, marked sputum, wheezing reported per patient. No hemoptysis. GASTROINTESTINAL: + anorexia, No nausea, vomiting or diarrhea, abdominal pain, melena, BRBPR. GENITOURINARY: s/p recent nephrostomy tube removal, unable to given decent history regarding urination patterns. NEUROLOGICAL: + Spina bifida with chronic paraplegia. No headache, dizziness, syncope, change in bowel or bladder control, seizure. MUSCULOSKELETAL: + muscle, back pain, joint pain or stiffness. HEMATOLOGIC: + anemia, bleeding or bruising. LYMPHATICS: No enlarged nodes. No history of splenectomy. PSYCHIATRIC: + history of depression or anxiety. ENDOCRINOLOGIC: No reports of sweating, cold or heat intolerance. No polyuria or polydipsia. ALLERGIES: + history of hives. Vital Signs Vital Signs Vital Signs: 03/16/23 13:44 03/16/23 14:15 03/16/23 13:44 Temperature 100.0 F H Temperature Source Oral Pulse Rate 114 H 109 H Respiratory Rate 24 H 16 Respiratory Effort Short of Breath Respiratory Pattern Tachypnea Blood Pressure 92/56 L Blood Pressure Mean 68 Pulse Ox 88 94 Oxygen Delivery Method Room Air Room Air Oxygen Flow Rate (L/min) 2 03/16/23 14:20 03/16/23 14:41 03/16/23 14:41 Temperature 98.7 F 98.7 F Temperature Source Oral Oral Pulse Rate 110 H 114 H 115 H Respiratory Rate 20 H 15 15 Respiratory Effort Respiratory Pattern Blood Pressure 88/40 L 91/52 L 91/52 L Blood Pressure Mean 56 65 65 Pulse Ox 96 96 96 Oxygen Delivery Method Nasal Cannula Nasal Cannula Nasal Cannula Oxygen Flow Rate (L/min) 2 2 2 03/16/23 15:00 03/16/23 15:43 03/16/23 16:00 Temperature 97.3 F L Temperature Source Oral Pulse Rate 105 H 105 H 103 H Respiratory Rate 16 21 H 22 H Respiratory Effort Respiratory Pattern Blood Pressure 83/43 L 93/47 L 87/44 L Blood Pressure Mean 56 62 58 Pulse Ox 96 94 93 Oxygen Delivery Method Room Air Nasal Cannula Nasal Cannula Oxygen Flow Rate (L/min) 2 2 03/16/23 16:34 03/16/23 16:34 Temperature 97.3 F L 97.3 F L Temperature Source Oral Oral Pulse Rate 101 H 101 H Respiratory Rate 20 H 20 H Respiratory Effort Respiratory Pattern Blood Pressure 101/47 L 101/47 L Blood Pressure Mean 65 65 Pulse Ox 96 95 Oxygen Delivery Method Nasal Cannula Nasal Cannula Oxygen Flow Rate (L/min) 2 2 Weight Weight: 245 lb 13.047 oz Body Mass Index (BMI) 44.9 Physical Exam Narrative Physical Examination: General: Awakens to stimuli, alert once awoken, oriented x 3 and cooperative, seated upright in the ED bed, fatigued and ill appearing, no acute distress. Skin: Normal color, normal turgor, no icterus, no cyanosis except for bilateral lower extremity venous stasis skin changes, chronic stasis decubitus ulcers w/ BL ischial/abdominal region. HEENT: AT/NC, EOMI, PERRLA, mildly dry MM, no carotid bruits or JVD noted; however, thickened neck makes evaluation difficult. Lungs: Diminished, distant, mildly increased RR but no distress, no rales, ronchi or wheezing. Heart: Mildly tachycardic with regular rhythm; no gallop, rub audible. Abdomen: Soft, morbidly obese, NTTP, no obvious distention but habitus makes evaluation difficult, distant normal bowel sounds, unable to discern HSM secondary to habitus, nephrostomy tube previously present has since been removed on 03/12/23. Extremities: No cyanosis, no clubbing, see skin, pedal edema to mid juarez, similar to his prior presentation. Neurological: Patient awake, alert, oriented as noted, cognitive function appears baseline intact but fatigued and lethargic, pupils equally reactive to light and accommodation, cranial nerves grossly normal, chronic significant deficits with paraplegia secondary to underlying spina bifida, strength severely global decreased secondary to acute presentation and underlying chronic comorbidities Psychiatric: Affect appears fatigued, no acute evidence of depressive or anxiety feelings. Results Lab / Micro Data 03/16/23 14:20 03/16/23 14:20 Labs: Laboratory Results - last 24 hr 03/16/23 14:20: WBC 21.0 H, RBC 3.52 L, Hgb 9.4 L, Hct 32.1 L, MCV 91.2, MCH 26.7 L, MCHC 29.3 L, RDW Std Deviation 57.6 H, RDW Coeff of Francisco 17.3 H, Plt Count 280, MPV 11.0, Immature Gran % (Auto) 0.600, Neut % (Auto) 79.8 H, Lymph % (Auto) 7.4 L, Robeson % (Auto) 10.5 H, Eos % (Auto) 1.1, Baso % (Auto) 0.6, Absolute Neuts (auto) 16.7 H, Absolute Lymphs (auto) 1.55, Nucleated RBC % 0, Differential Comment SCANNED, Diff Path Review May foll, Sodium 138, Potassium 4.2, Chloride 99, Carbon Dioxide 30.0, Anion Gap 9, BUN 61 H, Creatinine 5.78 H, Estim Creat Clear Calc 14.56, Est GFR (MDRD) Af Amer 15 L, Est GFR (MDRD) Non-Af 12 L, BUN/Creatinine Ratio 10.6, Glucose 152 H, Calcium 8.5 03/16/23 14:30: Lactic Acid 2.5 H* Micro: Microbiology 03/16/23 14:30 Nasal Secretion SARS-CoV-2 & FLU Antigen (Rapid) - Final Radiology Impression Chest X-Ray 03/16/23 14:13 IMPRESSION: Limited inspiratory effort due to the patient''s medical condition. No acute abnormality is seen. Electronically Signed: Jesus Alberto Munoz MD at 14:56 EST , Assessment & Plan Assessment/Plan (1) Hydronephrosis of right kidney: (2) Acute hypotension: PLAN: Plan The patient is a 27 y/o M w/ PMHx: Chronic normocytic anemia/iron deficiency anemia, Chronic Systolic CHF, Hx Pericardial Effusion, Secondary Pulmonary HTN, SOPHIA, Morbid Obesity, Chronic Hypotension on Midodrine with suspected underlying adrenal insufficiency, ESRD on HD , Spina bifida s/p AIR[employer]FT [employer]INTE[employer] IN[employer]CTOR shunt (nonfunctional) w/ paraplegic immobility syndrome w/ chronic indwelling catheter following w/ Urologist at [facility] w/ history of nephrolithiasis w/ stents in the past and chronic right nephrostomy tube recently d/c 03/12/23 of note, recent discharge 02/23/2023 with complicated UTI with undifferentiated shock felt multifactorial evaluated per infectious disease and discharged on doxycycline 100 mg twice daily for an additional 10 days who now represents to the [facility] ED on 03/16/23 with history of onset again of fever and fatigue starting the day prior with a home COVID test noted to be positive with self blood pressure assessment noted to be low prompting him to take midodrine as well as Tylenol with no recent cough, dyspnea however in the ED he was noted to be hypoxic however he is on chronic supplementation at home with last dialysis noted to be the day prior prompting eventual ED evaluation. #1. SIRS with Shock, presumed from Infectious source; however, cannot state exact source, possible Recurrent Acute Complicated UTI with noted Acute Right sided hydronephrosis new onset, new from most reecent prior CT 02/19/23, will admit to the ICU, will maintain on IV cefepime and linezolid based on previous antibiotic therapy toleration, request infectious disease consultation, consult IR for replacement nephrostomy tube, request urology consultation concurrently, given chronic usage of steroids will stress dose as patient does have history of adrenal insufficiency, will request consultation with yarder operator per protocol, maintain on fall and aspiration precautions, PT/OT/management consulted for discharge planning. To be cautious we will obtain COVID PCR as patient had noted home positive test however rapid antigen here is negative. #2. HFrEF previous chart history noted however most recent echocardiogram with normal EF/function: 10/29/2022 echocardiogram with normal LV size, LV systolic function normal, EF 60%, PASP 30 mmHg with no mention of any diastolic failure. We will continue judicious hydration, administered 30 cc/kg bolus in the ED thus monitor closely, currently on pressor low dose as noted, not on any regimen nor statin therapy. #4. Chronic pressure ulcers/chronic osteomyelitis: Patient with chronic osteomyelitis with stable appearing wounds, will continue frequent position changes, barrier cream, pre-Jyothi had utilized Dakin's solution with packing but verifying current home dressing changes and will continue, wound RN consultation. #5. ESRD: Patient continues to follow with Dr. Tinsley, patient last HD on day of presentation 03/15/23, nephrology consulted, pending. #6. Chronic hypotension with underlying adrenal insufficiency: We will continue patient home chronic midodrine regimen and will stress dose with steroids as noted. #7. Chronic normocytic anemia/iron deficiency anemia: Admission hemoglobin 9.4, MCV 91.2, baseline hemoglobin appears more recently 9-10, repeat CBC in AM, continue supplementation. Family has noted that patient has had notable hematuria with nephrostomy tube placements recently. #8. Spina bifida w/ paraplegic: s/p AIR[employer]TE[employer] IN[employer]CTOR shunt (nonfunctional), patient w/ as noted chronic indwelling catheter coupled with concurrent chronic nephrostomy tube, following w/ Urologist at [facility] w/ history of nephrolithiasis w/ stents/nephrostomy tube placement with most recent nephrostomy replacement 02/16/2023 eventually discontinued as noted 03/12/2023 with plan as noted above for replacement given hydronephrosis. Will continue nephrology consultation for dialysis, maintain frequent positional changes, offloading, PT and OT assessments as well as case management for discharge planning. #9. Chronic bilateral lower extremity edema: Appears stable currently, if necessary may add cee wraps. #10. Morbid Obesity: Weight loss and lifestyle changes encouraged. #11. SOPHIA: We will continue CPAP nightly. #12. Anxiety and depression: We will temporally hold low-dose sertraline given linezolid usage. #13. GERD: We will continue patient home PPI. #14. Hypothyroidism: We will continue patient home levothyroxine regimen. #15. DVT prophylaxis: SCDs, hold chemoprophylaxis for planned nephrostomy tube placement. #16. CODE STATUS: Full code. Charges/Coding Visit Charges Inpatient E&M: 56398 Init Hosp L3
--- NOTE | 2023-03-16 16:59 | CT_ITS ---
STUDY: CT ABDOMEN AND PELVIS WITH CONTRAST REASON FOR EXAM: Male, 27 years old. Fever, pain RADIATION DOSAGE (If Supplied By Facility): CTDIvol = ( 15.86 ) mGy, DLP = ( 1135.35 ) mGycm TECHNIQUE: Transaxial images were obtained from the dome of the diaphragm to the symphysis pubis without oral contrast. IV 100mL Isovue-300 was administered. Sagittal and coronal images were reconstructed. Individualized dose optimization techniques were used for this CT. COMPARISON: 02/19/2023. FINDINGS: Mild right basilar atelectasis. The visualized portions of the heart are within normal limits. Enlarged liver. Normal gallbladder and extrahepatic biliary system. Enlarged spleen. Normal pancreas. Normal bilateral adrenal glands. Up to 9 mm stones in the right kidney. Right hydronephrosis and right hydroureter. Some is seen. Normal left kidney. Normal visualized stomach. Normal small intestine. Normal colon. The appendix is visualized and appears normal. Mild fluid in the right lower quadrant. Normal abdominal aorta. Normal inferior vena cava. Normal retroperitoneum. Normal urinary bladder. Normal abdominal wall. Chronic deformity of the hips right more severe than left. Severe scoliosis with vertebral rods. CT/Abdomen/Pelvis W IV Cont ONLY IMPRESSION: Enlarged liver and spleen. No sign of bowel obstruction. Right hydronephrosis with right hydroureter. Nonobstructing right renal calculi. Electronically Signed: Lauro Galaviz DO at 20:19 EST ,
[2023-03-16] MEDS: Norepinephrine 8 MG in 0.9% Normal Saline (250mL Bag) 242 ML 9.4 MG CONT INF (17:51)
[2023-03-16 18:38] LABS: Reflex Lactate? Y
[2023-03-16 19:38] LABS: Lactic Acid 0.7 mmol/L (0.4-1.9)
[2023-03-16] MEDS: 0.9% Normal Saline (250mL Bag) 250 ML 15 ML IV (22:45)
[2023-03-16] MEDS: Cefepime HCl 1 GM in 0.9% Normal Saline (50mL MB+) 50 ML IV (22:50)
[2023-03-16] MEDS: MELATONIN 3 MG TABLET PO (23:41)
[2023-03-16] MEDS: Linezolid 600 MG 600 MG/300 ML BAG 200 MG IV (23:42)
[2023-03-16] MEDS: Hydrocortisone Sod Succinate 100 MG/2 ML Vial IV (23:45)
[2023-03-16] MEDS: Menthol/Lanolin/Calamine/Znox 113 GM Tube 1 APPLIC TOPICAL (23:45)
[2023-03-17] VITALS (40 sets, daily range): BP systolic 8–350; BP diastolic 36–86; PULSE 95–116; RESP 12–35; TEMP 36.8–37.3; O2SAT 94–100; BMI 45.5; BMI 45.4; BMI 44.7
[2023-03-17] MEDS: 0.9% Saline Lock 10 ML Syringe IV (04:25)
[2023-03-17] MEDS: TITRATION PARAMETER CHANGE 1 EACH IV (04:25)
[2023-03-17 04:37] LABS: Absolute Lymphocyte Count 2.16 X10^3/uL (0.83-4.51); Absolute Neutrophil Count 13.2 X10^3/uL (2.0-7.7); Basophil% 0.6 % (0-1); Eosinophil# 0.38 X10^3/uL; Eosinophils% 2.1 % (0-5); Hematocrit 28.9 % (40-54); Hemoglobin 8.1 g/dL (13.0-16.5); Lymphocyte # 2.16 X10^3/ul (0.83-4.51); Lymphocyte % 12.1 % (19-41); Mean Corpuscular Volume 92.6 fL (80-94); Mean Platelet Vol. 11.1 fl (6.2-12.0); Monocyte# 1.82 X10^3/uL; Monocyte% 10.2 % (0-10); NRBC Flagged by Analyzer 0 % (0-5); Neutrophil # 13.19 X10^3/uL (2.7-7.7); Neutrophil % 74.3 % (47-70); POSITIVE DIFFERENTIAL YES; Platelet Count 250 K/mm3 (150-450); RBC Distribution Width CV 17.2 % (11.6-14.6); RBC Distribution Width SD 58.4 fl (35.1-43.9); Red Blood Count 3.12 M/mm3 (4.6-6.2); White Blood Count 17.8 K/mm3 (4.4-11.0)
[2023-03-17 04:49] LABS: Differential Indicated SCAN CRITERIA MET
[2023-03-17 04:52] LABS: ALB/GLOB Ratio 0.5 RATIO (0.9-2.4); AST(SGOT) 10 U/L (15-37); Alanine Aminotransfer ALT/SGPT 10 U/L (16-61); Albumin, Serum 2.1 g/dL (3.2-5.0); Alkaline Phosphatase 205 U/L (45-117); Anion Gap 7 (5-15); BUN 60 mg/dL (7-18); BUN/Creat Ratio 10.9 RATIO (10-20); Calcium,Total 7.6 mg/dL (8.5-10.1); Chloride 105 mmol/L (98-107); Creatinine, Serum 5.49 mg/dL (0.70-1.30); EST Glomerular Filtration Rate 13 mL/min (>60); Est Glom Filt Rate - Afr Amer 16 mL/min (>60); Estimated Creatinine Clearance 15.33 ml/min; Globulin 4.4 g/dL (2.2-4.2); Glucose 99 mg/dL (74-106); Potassium 3.9 mmol/L (3.5-5.1); Protein, Total 6.5 g/dL (6.4-8.2); Sodium Level 139 mmol/L (136-145)
[2023-03-17 05:12] LABS: Differential Comment SCANNED; Hypochromasia 1+
[2023-03-17] MEDS: Hydrocortisone Sod Succinate 100 MG/2 ML Vial IV (05:31)
[2023-03-17] MEDS: Levothyroxine 75 MCG Tablet PO (05:31)
--- NOTE | 2023-03-17 06:33 | CON.PCM.CC_ITS ---
Assessment & Plan Assessment/Plan (1) Hydronephrosis of right kidney: PLAN: Plan RECOMMENDATIONS: 1. Wean Levophed to maintain a mean a systolic blood pressure at or above 90 mmHg. 2. Continue stress dose steroids. 3. Start scheduled midodrine 3 times daily. 4. Stop continuous IV fluids. 5. Continue empiric antimicrobials, while awaiting infectious diseases consultation. 6. Nephrology consultation to assist with hemodialysis needs. 7. IR consultation for nephrostomy tube placement. 8. Continue nocturnal PAP therapy per home regimen. IMPRESSIONS: 1. Septic shock Clinical concern once again for an underlying urinary tract source of infection, with hydronephrosis and hydroureter noted on CT imaging. The patient has been volume resuscitated. I would stop continuous IV fluids, given his underlying hemodialysis needs and continue vasopressor support to maintain a systolic pressure at or above 90 mmHg. Given that the patient has a history of adrenal insufficiency, plan to continue stress dose steroids. Scheduled midodrine will be initiated today as well. In the interim, continue empiric antibiotics, pending infectious diseases consultation. I agree with referral to interventional radiology for consideration of nephrostomy tube placement. 2. End-stage renal disease on hemodialysis Nephrology consultation to assist with hemodialysis management. 3. History of adrenal insufficiency with persistent/chronic hypotension Continue scheduled midodrine. Continue stress dose steroids as ordered. Once hemodynamic status improves, stress dose steroids will be weaned. 4. History of congestive heart failure/anemia/spina bifida with parap legia/obesity/sleep apnea Complicates care, management, recovery and prognosis. Continue PAP therapy with sleep. The patient is scheduled to follow-up with Dr. Ayoub in the pulmonary medicine clinic on April 29. TIME: 32 minutes of critical care time, independent of procedures, was spent addressing the patient's septic shock, end-stage renal disease on hemodialysis, adrenal insufficiency, review of all data and collaboration with the care team. HPI Consult Data Date of Consult: 03/17/23 HPI Narrative Reason for Consultation: Sepsis HPI Narrative: The patient is a 27-year-old male, with a history as outlined below, who presented to the emergency department on March 16 with fevers and chills in the setting of a recent positive home COVID test. The patient has a complex medical history including baseline spina bifida with immobility, end-stage renal disease on hemodialysis, anemia, chronic congestive heart failure, obstructive sleep apnea, chronic hypotension, adrenal insufficiency and chronic hypoxemic respiratory failure with a baseline 2 L/min oxygen requirement. The patient reported that approximately 1 week ago he had his nephrostomy tube removed after his PCP was concerned about his underlying anemia. The patient recently transition to doing his dialysis sessions at home 5 times per week. He is followed by Dr. Estevez of nephrology. The patient does have a history of frequent hospitalizations related to underlying urinary tract sources of infection. His last hospitalization occurred in January 2023. On presentation to the emergency department, the patient was documented to be febrile with a temperature of 100 ?F. He was tachycardic and tachypneic with a presenting blood pressure of 92/56 mmHg. The patient was documented to be saturating 88% on room air. Initial laboratory evaluation revealed a white blood cell count of 21,000. Hemoglobin was noted to be 9.4 g/dL. Chemistry profile was notable for a lactate of 2.5. COVID PCR and respiratory viral panel were negative. Blood cultures were obtained. Chest x-ray demonstrated no acute cardiopulmonary process. CT abdomen/pelvis demonstrated right-sided hydronephrosis and right hydroureter. The patient did receive supplemental IV fluids and was initiated on antimicrobials. The patient remained hypotensive and was subsequently placed on Levophed and admitted to the medical intensive care unit for further management. 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, stage 3 Pressure ulcer Right-sided heart failure Secondary pulmonary arterial hypertension Sleep apnea Spina bifida Systolic CHF Umbilical hernia Home Medications gabapentin 100 mg capsule 100 mg PO DAILY NEUROPATHY 09/17/22 [History Last Taken 03/16/23] hydrocortisone 10 mg tablet 15 mg PO DAILY ALLERGIES 09/17/22 [History Last Taken 03/16/23] loperamide 2 mg tablet 2 mg PO Q6H PRN DIARRHEA 09/17/22 [History Last Taken Unknown] magnesium hydroxide 400 mg/5 mL oral suspension (Milk of Magnesia) 400 mg PO DAILY PRN CONSTIPATION 09/17/22 [History Last Taken Unknown] midodrine 10 mg tablet 10 mg PO DAILY PRN DIZZINESS 09/17/22 [History Last Taken Unknown] sertraline 25 mg tablet 25 mg PO DAILY DEPRESSION 09/17/22 [History Last Taken 03/16/23] trazodone 100 mg tablet 100 mg PO QHS SLEEP 09/17/22 [History Last Taken 03/15/23] simethicone 80 mg chewable tablet (Gas Relief (simethicone)) 80 mg PO BID PRN GAS RELIEF 10/28/22 [History Last Taken Unknown] ferrous gluconate 240 mg (27 mg iron) tablet (Ferate) 240 mg PO BID SUPPLEMENT 02/18/23 [History Last Taken 03/16/23] hydrocortisone 10 mg tablet 10 mg PO QHS ALLERGIES 03/16/23 [History Last Taken 03/15/23] levothyroxine 75 mcg tablet 75 mcg PO DAILY THYROID 03/16/23 [History Last Taken 03/16/23] sevelamer carbonate 800 mg tablet 800 mg PO TIDCM KIDNEYS 03/16/23 [History Last Taken 03/16/23] Allergy/AdvReac Type Severity Reaction Status Date / Time ampicillin Allergy rash Verified 03/16/23 13:44 daptomycin Allergy Hives Verified 03/16/23 13:44 fentanyl Allergy Rash Verified 03/16/23 13:44 latex Allergy Hives Verified 03/16/23 13:44 meropenem Allergy rash Verified 03/16/23 13:44 morphine Allergy Hives Verified 03/16/23 13:44 sulbactam [From Unasyn] Allergy Hives Verified 03/16/23 13:44 vancomycin Allergy Hives Verified 03/16/23 13:44 Family History Grandfather Heart disease Father Hypertension Mother Hyperlipidemia Surgical History History of back surgery History of foot surgery History of kidney surgery History of ventriculoperitoneal shunting S/P cutaneous-vesicostomy S/P ureteral stent placement Status post laser lithotripsy of ureteral calculus Social History household members: family Smoking Status: Never smoker second hand exposure: Yes alcohol intake: never substance use type: does not use ROS ROS Narrative 10 systems were reviewed with pertinent positives as noted in the HPI above. Physical Exam Const alert and no apparent distress Constitutional Narrative: Obese. General Appearance: cooperative HEENT normocephalic and head/scalp atraumatic Eyes PERRL, EOMs intact bilaterally and conjunctivae normal Neck supple General: trachea midline Chest inspection of chest normal Resp normal respiratory effort Auscultation: diminished lung sounds; Negative for rales, rhonchi or wheezes Cardio regular rate and regular rhythm GI soft to palpation and non-tender Extremity General Extremity: edema; Negative for clubbing Skin Skin Narrative: Venous stasis dermatitis Neuro oriented x3 Neuro Narrative: Baseline paraplegia Psych cooperative and affect normal Lab / Micro Data 03/17/23 04:20 03/17/23 04:20 Labs: Laboratory Results - last 24 hr 03/16/23 14:20: WBC 21.0 H, RBC 3.52 L, Hgb 9.4 L, Hct 32.1 L, MCV 91.2, MCH 26.7 L, MCHC 29.3 L, RDW Std Deviation 57.6 H, RDW Coeff of Francisco 17.3 H, Plt Count 280, MPV 11.0, Immature Gran % (Auto) 0.600, Neut % (Auto) 79.8 H, Lymph % (Auto) 7.4 L, [place] % (Auto) 10.5 H, Eos % (Auto) 1.1, Baso % (Auto) 0.6, Absolute Neuts (auto) 16.7 H, Absolute Lymphs (auto) 1.55, Nucleated RBC % 0, Differential Comment SCANNED, Diff Path Review August, Sodium 138, Potassium 4.2, Chloride 99, Carbon Dioxide 30.0, Anion Gap 9, BUN 61 H, Creatinine 5.78 H, Estim Creat Clear Calc 14.56, Est GFR (MDRD) Af Amer 15 L, Est GFR (MDRD) Non-Af 12 L, BUN/Creatinine Ratio 10.6, Glucose 152 H, Calcium 8.5 03/16/23 14:30: Lactic Acid 2.5 H* 03/16/23 19:07: Lactic Acid 0.7 03/17/23 04:20: WBC 17.8 H, RBC 3.12 L, Hgb 8.1 L, Hct 28.9 L, MCV 92.6, MCH 26.0 L, MCHC 28.0 L, RDW Std Deviation 58.4 H, RDW Coeff of Francisco 17.2 H, Plt Count 250, MPV 11.1, Immature Gran % (Auto) 0.700, Neut % (Auto) 74.3 H, Lymph % (Auto) 12.1 L, [place] % (Auto) 10.2 H, Eos % (Auto) 2.1, Baso % (Auto) 0.6, Absolute Neuts (auto) 13.2 H, Absolute Lymphs (auto) 2.16, Nucleated RBC % 0, Differential Comment SCANNED, Diff Path Review August foll, Hypochromasia 1+, Sodium 139, Potassium 3.9, Chloride 105, Carbon Dioxide 27.0, Anion Gap 7, BUN 60 H, Creatinine 5.49 H, Estim Creat Clear Calc 15.33, Est GFR (MDRD) Af Amer 16 L, Est GFR (MDRD) Non-Af 13 L, BUN/Creatinine Ratio 10.9, Glucose 99, Calcium 7.6 L, Total Bilirubin 0.60, AST 10 L, ALT 10 L, Alkaline Phosphatase 205 H, Total Protein 6.5, Albumin 2.1 L, Globulin 4.4 H, Albumin/Globulin Ratio 0.5 L Micro: Microbiology 03/16/23 15:50 Mucosa - Nasopharyngeal Coronavirus COVID-19 PCR - Final 03/16/23 14:30 Nasal Secretion SARS-CoV-2 & FLU Antigen (Rapid) - Final Radiology Impression Chest X-Ray 03/16/23 14:13 IMPRESSION: Limited inspiratory effort due to the patient''s medical condition. No acute abnormality is seen. Electronically Signed: Jesus Alberto Munoz MD at 14:56 EST , Abdomen/Pelvis CT 03/16/23 16:59 IMPRESSION: Enlarged liver and spleen. No sign of bowel obstruction. Right hydronephrosis with right hydroureter. Nonobstructing right renal calculi. Electronically Signed: Lauro Galaviz DO at 20:19 EST , Charges/Coding Procedures Hospitalists Procedures: [id number] [facility] 1st Hr
[2023-03-17] MEDS: 0.9% Normal Saline 1,000 ML IV.SOLN. 1000 ML OPERA.SITE (07:37)
[2023-03-17] MEDS: PureFlow B 2K Dialysis Soln 1 BAG 6 BAG PF (07:38)
[2023-03-17] MEDS: Midodrine HCl 5 MG Tablet 10 MG PO (08:27)
[2023-03-17] MEDS: Ferrous Gluconate 324 MG Tablet PO (08:27)
[2023-03-17] MEDS: Gabapentin 100 MG Capsule PO (08:27)
[2023-03-17] MEDS: SEVELAMER CARBONATE 800 MG TABLET PO (08:27)
[2023-03-17 08:46] LABS: Magnesium 2.4 mg/dL (1.6-2.6)
[2023-03-17 08:55] LABS: Procalcitonin 18.37 ng/mL (0.00-0.09)
--- NOTE | 2023-03-17 10:30 | PCM.CONS.R ---
Assessment & Plan Assessment/Plan (1) ESRD (end stage renal disease): PLAN: Seen on dialysis today. Recently switched to home hemodialysis which was done by family members. AV fistula looks okay. Chronic history of adrenal insufficiency. On midodrine at home. Currently requiring low-dose pressors. Nephrostomy tube placement by IR recommended by ICU team. Discussed with dialysis staff. HPI Consult Data Date of Consult: 03/17/23 HPI Narrative Reason for Consultation: ESRD. HPI Narrative: OKSANA DAMIAN, is a 27 M who presents to the hospital with fever, chills. He has known history of repeated UTI often with MDR bugs. Last admission his urine culture was negative hence he was empirically treated. He had a nephrostomy tube which is periodically replaced by interventional radiology. Initially admitted for suspected sepsis. COVID negative. CT abdomen shows hydronephrosis. ICU recommending nephrostomy tube placement. Seen on dialysis today. Mostly sleepy. 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, stage 3 Pressure ulcer Right-sided heart failure Secondary pulmonary arterial hypertension Sleep apnea Spina bifida Systolic CHF Umbilical hernia Home Medications gabapentin 100 mg capsule 100 mg PO DAILY NEUROPATHY 09/17/22 [History Last Taken 03/16/23] hydrocortisone 10 mg tablet 15 mg PO DAILY ALLERGIES 09/17/22 [History Last Taken 03/16/23] loperamide 2 mg tablet 2 mg PO Q6H PRN DIARRHEA 09/17/22 [History Last Taken Unknown] magnesium hydroxide 400 mg/5 mL oral suspension (Milk of Magnesia) 400 mg PO DAILY PRN CONSTIPATION 09/17/22 [History Last Taken Unknown] midodrine 10 mg tablet 10 mg PO DAILY PRN DIZZINESS 09/17/22 [History Last Taken Unknown] sertraline 25 mg tablet 25 mg PO DAILY DEPRESSION 09/17/22 [History Last Taken 03/16/23] trazodone 100 mg tablet 100 mg PO QHS SLEEP 09/17/22 [History Last Taken 03/15/23] simethicone 80 mg chewable tablet (Gas Relief (simethicone)) 80 mg PO BID PRN GAS RELIEF 10/28/22 [History Last Taken Unknown] ferrous gluconate 240 mg (27 mg iron) tablet (Ferate) 240 mg PO BID SUPPLEMENT 02/18/23 [History Last Taken 03/16/23] hydrocortisone 10 mg tablet 10 mg PO QHS ALLERGIES 03/16/23 [History Last Taken 03/15/23] levothyroxine 75 mcg tablet 75 mcg PO DAILY THYROID 03/16/23 [History Last Taken 03/16/23] sevelamer carbonate 800 mg tablet 800 mg PO TIDCM KIDNEYS 03/16/23 [History Last Taken 03/16/23] Allergy/AdvReac Type Severity Reaction Status Date / Time ampicillin Allergy rash Verified 03/16/23 13:44 daptomycin Allergy Hives Verified 03/16/23 13:44 fentanyl Allergy Rash Verified 03/16/23 13:44 latex Allergy Hives Verified 03/16/23 13:44 meropenem Allergy rash Verified 03/16/23 13:44 morphine Allergy Hives Verified 03/16/23 13:44 sulbactam [From Unasyn] Allergy Hives Verified 03/16/23 13:44 vancomycin Allergy Hives Verified 03/16/23 13:44 Family History Grandfather Heart disease Father Hypertension Mother Hyperlipidemia Surgical History History of back surgery History of foot surgery History of kidney surgery History of ventriculoperitoneal shunting S/P cutaneous-vesicostomy S/P ureteral stent placement Status post laser lithotripsy of ureteral calculus Social History household members: family Smoking Status: Never smoker second hand exposure: Yes alcohol intake: never substance use type: does not use ROS ROS Narrative Negative except above Physical Exam Narrative no obvious distress no pallor no icterus no JVD s1s2 no murmurs lungs clear abdomen soft no organomegaly no edema no cyanosis molina + Lab / Micro Data 03/17/23 04:20 03/17/23 04:20 Labs: Laboratory Results - last 24 hr 03/16/23 14:20: WBC 21.0 H, RBC 3.52 L, Hgb 9.4 L, Hct 32.1 L, MCV 91.2, MCH 26.7 L, MCHC 29.3 L, RDW Std Deviation 57.6 H, RDW Coeff of Francisco 17.3 H, Plt Count 280, MPV 11.0, Immature Gran % (Auto) 0.600, Neut % (Auto) 79.8 H, Lymph % (Auto) 7.4 L, [place] % (Auto) 10.5 H, Eos % (Auto) 1.1, Baso % (Auto) 0.6, Absolute Neuts (auto) 16.7 H, Absolute Lymphs (auto) 1.55, Nucleated RBC % 0, Differential Comment SCANNED, Diff Path Review August foll, Sodium 138, Potassium 4.2, Chloride 99, Carbon Dioxide 30.0, Anion Gap 9, BUN 61 H, Creatinine 5.78 H, Estim Creat Clear Calc 14.56, Est GFR (MDRD) Af Amer 15 L, Est GFR (MDRD) Non-Af 12 L, BUN/Creatinine Ratio 10.6, Glucose 152 H, Calcium 8.5, Magnesium 2.4 03/16/23 14:30: Lactic Acid 2.5 H* 03/16/23 19:07: Lactic Acid 0.7 03/17/23 04:20: WBC 17.8 H, RBC 3.12 L, Hgb 8.1 L, Hct 28.9 L, MCV 92.6, MCH 26.0 L, MCHC 28.0 L, RDW Std Deviation 58.4 H, RDW Coeff of Francisco 17.2 H, Plt Count 250, MPV 11.1, Immature Gran % (Auto) 0.700, Neut % (Auto) 74.3 H, Lymph % (Auto) 12.1 L, [place] % (Auto) 10.2 H, Eos % (Auto) 2.1, Baso % (Auto) 0.6, Absolute Neuts (auto) 13.2 H, Absolute Lymphs (auto) 2.16, Nucleated RBC % 0, Differential Comment SCANNED, Diff Path Review August foll, Hypochromasia 1+, Sodium 139, Potassium 3.9, Chloride 105, Carbon Dioxide 27.0, Anion Gap 7, BUN 60 H, Creatinine 5.49 H, Estim Creat Clear Calc 15.33, Est GFR (MDRD) Af Amer 16 L, Est GFR (MDRD) Non-Af 13 L, BUN/Creatinine Ratio 10.9, Glucose 99, Calcium 7.6 L, Total Bilirubin 0.60, AST 10 L, ALT 10 L, Alkaline Phosphatase 205 H, Total Protein 6.5, Albumin 2.1 L, Globulin 4.4 H, Albumin/Globulin Ratio 0.5 L 03/17/23 08:20: Procalcitonin 18.37 H Micro: Microbiology 03/16/23 15:50 Mucosa - Nasopharyngeal Coronavirus COVID-19 PCR - Final 03/16/23 14:30 Nasal Secretion SARS-CoV-2 & FLU Antigen (Rapid) - Final Radiology Impression Chest X-Ray 03/16/23 14:13 IMPRESSION: Limited inspiratory effort due to the patient''s medical condition. No acute abnormality is seen. Electronically Signed: Jesus Alberto Munoz MD at 14:56 EST , Abdomen/Pelvis CT 03/16/23 16:59 IMPRESSION: Enlarged liver and spleen. No sign of bowel obstruction. Right hydronephrosis with right hydroureter. Nonobstructing right renal calculi. Electronically Signed: Lauro Galaviz DO at 20:19 EST ,
--- NOTE | 2023-03-17 10:52 | CON.PCM.UR_ITS ---
HPI Consult Data Date of Consult: 03/17/23 HPI Narrative HPI Narrative: OKSANA DAMIAN, is a 27 M who presents to the hospital with sepsis he has a chronically infected right kidney chronic hydronephrosis managed with a chronic nephrostomy tube the tube has been removed because the patient desired to go without the tube but unfortunately he came back to the hospital with an infection and sepsis he is better now and clinically stable in the ICU he is getting a transfer to an outside hospital to have the nephrostomy tube replaced he is a difficult placement for nephrostomy tube here in interventional radiology here declined to do the procedure so he can get transferred to outside institution. I spoke to the patient today I told him long-term he could always consider doing a right nephrectomy I think this would have to be done at a tertiary care center it would be a major surgery for him there is potential for morbidity mortality with such a surgery but his only way to get rid of this nephrostomy tube would be to have a nephrectomy. 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, stage 3 Pressure ulcer Right-sided heart failure Secondary pulmonary arterial hypertension Sleep apnea Spina bifida Systolic CHF Umbilical hernia Home Medications gabapentin 100 mg capsule 100 mg PO DAILY NEUROPATHY 09/17/22 [History Last T aken 03/16/23] hydrocortisone 10 mg tablet 15 mg PO DAILY ALLERGIES 09/17/22 [History Last Taken 03/16/23] loperamide 2 mg tablet 2 mg PO Q6H PRN DIARRHEA 09/17/22 [History Last Taken Unknown] magnesium hydroxide 400 mg/5 mL oral suspension (Milk of Magnesia) 400 mg PO DAILY PRN CONSTIPATION 09/17/22 [History Last Taken Unknown] midodrine 10 mg tablet 10 mg PO DAILY PRN DIZZINESS 09/17/22 [History Last Taken Unknown] sertraline 25 mg tablet 25 mg PO DAILY DEPRESSION 09/17/22 [History Last Taken 03/16/23] trazodone 100 mg tablet 100 mg PO QHS SLEEP 09/17/22 [History Last Taken 03/15/23] simethicone 80 mg chewable tablet (Gas Relief (simethicone)) 80 mg PO BID PRN GAS RELIEF 10/28/22 [History Last Taken Unknown] ferrous gluconate 240 mg (27 mg iron) tablet (Ferate) 240 mg PO BID SUPPLEMENT 1 [History Last Taken 03/16/23] hydrocortisone 10 mg tablet 10 mg PO QHS ALLERGIES 03/16/23 [History Last Taken 03/15/23] levothyroxine 75 mcg tablet 75 mcg PO DAILY THYROID 03/16/23 [History Last Taken 03/16/23] sevelamer carbonate 800 mg tablet 800 mg PO TIDCM KIDNEYS 03/16/23 [History Last Taken 03/16/23] Allergy/AdvReac Type Severity Reaction Status Date / Time ampicillin Allergy rash Verified 03/16/23 13:44 daptomycin Allergy Hives Verified 03/16/23 13:44 fentanyl Allergy Rash Verified 03/16/23 13:44 latex Allergy Hives Verified 03/16/23 13:44 meropenem Allergy rash Verified 03/16/23 13:44 morphine Allergy Hives Verified 03/16/23 13:44 sulbactam [From Unasyn] Allergy Hives Verified 03/16/23 13:44 vancomycin Allergy Hives Verified 03/16/23 13:44 Family History Grandfather Heart disease Father Hypertension Mother Hyperlipidemia Surgical History History of back surgery History of foot surgery History of kidney surgery History of ventriculoperitoneal shunting S/P cutaneous-vesicostomy S/P ureteral stent placement Status post laser lithotripsy of ureteral calculus Social History household members: family Smoking Status: Never smoker second hand exposure: Yes alcohol intake: never substance use type: does not use Lab / Micro Data 03/17/23 04:20 03/17/23 04:20 Labs: Laboratory Results - last 24 hr 03/16/23 14:20: WBC 21.0 H, RBC 3.52 L, Hgb 9.4 L, Hct 32.1 L, MCV 91.2, MCH 26.7 L, MCHC 29.3 L, RDW Std Deviation 57.6 H, RDW Coeff of Francisco 17.3 H, Plt Count 280, MPV 11.0, Immature Gran % (Auto) 0.600, Neut % (Auto) 79.8 H, Lymph % (Auto) 7.4 L, [place] % (Auto) 10.5 H, Eos % (Auto) 1.1, Baso % (Auto) 0.6, Absolute Neuts (auto) 16.7 H, Absolute Lymphs (auto) 1.55, Nucleated RBC % 0, Differential Comment SCANNED, Diff Path Review August foll, Sodium 138, Potassium 4.2, Chloride 99, Carbon Dioxide 30.0, Anion Gap 9, BUN 61 H, Creatinine 5.78 H, Estim Creat Clear Calc 14.56, Est GFR (MDRD) Af Amer 15 L, Est GFR (MDRD) Non-Af 12 L, BUN/Creatinine Ratio 10.6, Glucose 152 H, Calcium 8.5, Magnesium 2.4 03/16/23 14:30: Lactic Acid 2.5 H* 03/16/23 19:07: Lactic Acid 0.7 03/17/23 04:20: WBC 17.8 H, RBC 3.12 L, Hgb 8.1 L, Hct 28.9 L, MCV 92.6, MCH 26.0 L, MCHC 28.0 L, RDW Std Deviation 58.4 H, RDW Coeff of [place] 17.2 H, Plt Count 250, MPV 11.1, Immature Gran % (Auto) 0.700, Neut % (Auto) 74.3 H, Lymph % (Auto) 12.1 L, [place] % (Auto) 10.2 H, Eos % (Auto) 2.1, Baso % (Auto) 0.6, Absolute Neuts (auto) 13.2 H, Absolute Lymphs (auto) 2.16, Nucleated RBC % 0, Differential Comment SCANNED, Diff Path Review May foll, Hypochromasia 1+, Sodium 139, Potassium 3.9, Chloride 105, Carbon Dioxide 27.0, Anion Gap 7, BUN 60 H, Creatinine 5.49 H, Estim Creat Clear Calc 15.33, Est GFR (MDRD) Af Amer 16 L, Est GFR (MDRD) Non-Af 13 L, BUN/Creatinine Ratio 10.9, Glucose 99, Calcium 7.6 L, Total Bilirubin 0.60, AST 10 L, ALT 10 L, Alkaline Phosphatase 205 H, Total Protein 6.5, Albumin 2.1 L, Globulin 4.4 H, Albumin/Globulin Ratio 0.5 L 03/17/23 08:20: Procalcitonin 18.37 H Micro: Microbiology 03/16/23 15:50 Mucosa - Nasopharyngeal Coronavirus COVID-19 PCR - Final 03/16/23 14:30 Nasal Secretion SARS-CoV-2 & FLU Antigen (Rapid) - Final Radiology Impression Chest X-Ray 03/16/23 14:13 IMPRESSION: Limited inspiratory effort due to the patient''s medical condition. No acute abnormality is seen. Electronically Signed: Jesus Alberto Munoz MD at 14:56 EST , Abdomen/Pelvis CT 03/16/23 16:59 IMPRESSION: Enlarged liver and spleen. No sign of bowel obstruction. Right hydronephrosis with right hydroureter. Nonobstructing right renal calculi. Electronically Signed: Lauro Galaviz DO at 20:19 EST ,
[2023-03-17] MEDS: Linezolid 600 MG 600 MG/300 ML BAG 200 MG IV (10:58)
[2023-03-17] MEDS: Menthol/Lanolin/Calamine/Znox 113 GM Tube 1 APPLIC TOPICAL (10:58)
--- NOTE | 2023-03-17 11:20 | NURSING ---
Report given to Juan Campbell FOURCHETTE SEWER, all questions and concerns answered.
--- NOTE | 2023-03-17 11:32 | DCINST_ITS ---
Discharge Instructions Diet Discharge Diet: No restrictions Activity Discharge Activity: No Restrictions Weight Bearing Status: Weight bearing as tolerated Follow Up Care Test Results: Test results from this visit will be discussed in further detail at your follow- up appointment, if applicable. Discharge Plan Admission Admit Date/Time: 03/16/23 20:32 Primary Reason for Your Visit: Septic shock, pyelonephritis with right-sided hydronephrosis Attending Provider: Jm Holbrook Primary Care Provider: Cameron Romero Consulting Providers: Laurent Bernal; Michele Cohen; Maureen Ferguson; Luis Amador; Jesus Alberto Munoz; Cruz Ocampo Instructions Additional Instructions / Restrictions: Continue cefepime, linezolid and Levophed as needed at outside hospital. Continue all other home medications as prescribed. Discharge Orders/Prescriptions Prescriptions: Continued loperamide 2 mg Tablet 2 mg PO Q6H PRN (Reason: DIARRHEA ) magnesium hydroxide [Milk of Magnesia] 400 mg/5 mL Suspension 400 mg PO DAILY PRN (Reason: CONSTIPATION ) trazodone 100 mg Tablet 100 mg PO QHS sertraline 25 mg Tablet 25 mg PO DAILY gabapentin 100 mg Capsule 100 mg PO DAILY hydrocortisone 10 mg Tablet 15 mg PO DAILY Hold Instructions: Resume on 09/23/22. midodrine 10 mg Tablet 10 mg PO DAILY PRN (Reason: DIZZINESS ) Rx Instructions: (do not give last dose of day after 6PM or within 4 hrs of bedtime) ferrous gluconate [Ferate] 240 mg (27 mg iron) tablet 240 mg PO BID hydrocortisone 10 mg tablet 10 mg PO QHS levothyroxine 75 mcg tablet 75 mcg PO DAILY sevelamer carbonate 800 mg tablet 800 mg PO TIDCM simethicone [Gas Relief (simethicone)] 80 mg tablet,chewable 80 mg PO BID PRN (Reason: GAS RELIEF) Referrals / Follow Up: Cameron Romero DO [Primary Care Provider] - Disposition Disposition (needs filled in before D/C Order can be placed): [facility]
--- NOTE | 2023-03-17 11:35 | PCM.DC.SUM ---
Providers Date of Admission: 03/16/23 Date of Discharge: 03/17/23 Primary Care Physician: Dr. Cameron Romero, Consultations 03/16/23 20:51 Consult: Infectious Disease Routine Consulting Provider: Luis Amador Reason for Consult: Shock, presumed UTI EMERGENT Consult: No MD Notified: Yes Date Notified: 03/17/23 Time Notified: 08:05 Method of Notification: Text Consult: Sludge Control Attendant / Pulmonary Medicine Routine Consulting Provider: Laurent Bernal Reason for Consult: Shock presumed UTI EMERGENT Consult: No MD Notified: Yes Date Notified: 03/16/23 Time Notified: 20:36 Method of Notification: Text Consult: Nephrology Routine Consulting Provider: Cruz Ocampo Reason for Consult: ESRD on HD EMERGENT Consult: No Notified: Yes Date Notified: 03/17/23 Time Notified: 08:13 Method of Notification: Answering Service Consult: Onc/Wound/liquid natural gas plant operator Routine Comment: Reason for Consult:: posterior wounds Consult: Urology Routine Consulting Provider: Michele Cohen Reason for Consult: R hydro, shock, presume UTI EMERGENT Consult: No Notified: Yes Date Notified: 03/16/23 Time Notified: 20:38 Method of Notification: Verbal 03/17/23 08:08 Consult: Interventional Radiology Routine Consulting Provider: Jesus Alberto Munoz Reason for Consult: R sided nephrostomy tube placed, has hydro now, suspect UTI, need UA/UCx EMERGENT Consult: No Notified: Yes Date Notified: 03/16/23 Time Notified: 20:36 Method of Notification: Verbal Reason For Visit: SIRS, SHOCK, SUSPECTED COMPLICATED UTI, R SIDED HY Diagnosis Discharge Diagnosis (1) ESRD (end stage renal disease): Status: Acute Code(s): N18.6 - End stage renal disease Medications at Discharge Home Medications gabapentin 100 mg capsule 100 mg PO DAILY NEUROPATHY 09/17/22 hydrocortisone 10 mg tablet 15 mg PO DAILY ALLERGIES 09/17/22 loperamide 2 mg tablet 2 mg PO Q6H PRN DIARRHEA 09/17/22 magnesium hydroxide 400 mg/5 mL oral suspension (Milk of Magnesia) 400 mg PO DAILY PRN CONSTIPATION 09/17/22 midodrine 10 mg tablet 10 mg PO DAILY PRN DIZZINESS 09/17/22 sertraline 25 mg tablet 25 mg PO DAILY DEPRESSION 09/17/22 trazodone 100 mg tablet 100 mg PO QHS SLEEP 09/17/22 simethicone 80 mg chewable tablet (Gas Relief (simethicone)) 80 mg PO BID PRN GAS RELIEF 10/28/22 ferrous gluconate 240 mg (27 mg iron) tablet (Ferate) 240 mg PO BID SUPPLEMENT 02/18/23 hydrocortisone 10 mg tablet 10 mg PO QHS ALLERGIES 03/16/23 levothyroxine 75 mcg tablet 75 mcg PO DAILY THYROID 03/16/23 sevelamer carbonate 800 mg tablet 800 mg PO TIDCM KIDNEYS 03/16/23 Hospital Course Operations None Procedures Dialysis and - (Chest x-ray, CT abdomen pelvis with IV contrast) Summary of Care Provided Minutes Spent on Discharge: 35 Hospital Course: Patient is a 27-year-old male who presented to [facility] ED on 03/16/2023 with concern for septic shock. Short hospital course as noted below. Septic shock suspected secondary to pyelonephritis with right-sided hydronephrosis: Patient has history of spinal bifida with paraplegic immobility syndrome at baseline. Has chronic indwelling Bonilla catheter and previously followed with a urologist at [facility]. Also has history of nephrolithiasis with ureteral stent placement and chronic right nephrostomy tube placement. Per recent records, right nephrostomy tube was removed by interventional radiology on 03/12/2023. Patient notably was recently hospitalized for a complicated UTI with undifferentiated shock. On this admission, patient presented with subjective fevers at home and worsening fatigue starting the day prior to admission. Patient also noted that he was hypotensive at home. CT abdomen pelvis on admission showed acute right-sided hydronephrosis that was new from most recent prior CT on 02/19/2023. Patient was also found to hypotensive in the ED. Was admitted to the ICU and initiated on low-dose Levophed via peripheral IV as well as broad-spectrum antibiotics of cefepime and linezolid, which were chosen due to previous culture results. Patient had subjective improvement on hospital day 2 but was still requiring 5 to 6 mcg of Levophed to maintain his blood pressure. Patient was evaluated by interventional radiology, neurology, nephrology and buffing and sueding machine operator during short admission. Recommendation was for placement of right nephrostomy tube. Per radiology, noted that placement will be difficult and recommended that patient be transferred to an outside facility for tube placement. Patient was transferred to [facility] on 03/17 in stable condition. Discharge diagnoses: ? Septic shock suspected secondary to pyelonephritis with right-sided nephrosis ? HFrEF ? Chronic pressure ulcers with chronic osteomyelitis ? ESRD on HD ? Chronic hypotension with underlying adrenal insufficiency ? Chronic normocytic anemia with iron deficiency anemia ? Spina bifida with functional paraplegia ? Bilateral lower extremity edema ? Chronic urinary retention s/p chronic Bonilla catheter ? Morbid obesity ? SOPHIA ? Anxiety/depression ? GERD ? Hypothyroidism Total clinical time spent by myself addressing the patient's discharge needs: 35 minutes. Physical Exam Const alert, oriented x3 and no apparent distress Constitutional Narrative: Pleasant young male, morbidly obese, sitting comfortably in bed, conversing normally, no acute distress. General Appearance: cooperative and comfortable HEENT normocephalic, head/scalp atraumatic, hearing grossly normal bilaterally, nasal mucous membranes and turbinates normal and moist oral mucous membranes Eyes PERRL, EOMs intact bilaterally and conjunctivae normal Neck full ROM, no lymphadenopathy and supple Lymph Lymphatic: no lymphadenopathy noted Chest inspection of chest normal Resp normal respiratory effort, normal air movement, no use of accessory muscles and clear to auscultation bilaterally Cardio regular rate, regular rhythm, no murmurs and peripheral pulses 2+ throughout GI normal to inspection, nondistended, normoactive bowel sounds, soft to palpation, non-tender and non-distended Back/Spine normal ROM Extremity normal to inspection, full ROM and no pedal edema Skin no rashes or lesions noted Psych mental status grossly normal Weight / BMI Weight Weight: 110.3 kg Body Mass Index (BMI) 44.7 ABG / Lab / Microbiology Data 03/17/23 04:20 03/17/23 04:20 Laboratory: Laboratory Results - last 24 hr 03/16/23 14:20: WBC 21.0 H, RBC 3.52 L, Hgb 9.4 L, Hct 32.1 L, MCV 91.2, MCH 26.7 L, MCHC 29.3 L, RDW Std Deviation 57.6 H, RDW Coeff of Francisco 17.3 H, Plt Count 280, MPV 11.0, Immature Gran % (Auto) 0.600, Neut % (Auto) 79.8 H, Lymph % (Auto) 7.4 L, [place] % (Auto) 10.5 H, Eos % (Auto) 1.1, Baso % (Auto) 0.6, Absolute Neuts (auto) 16.7 H, Absolute Lymphs (auto) 1.55, Nucleated RBC % 0, Differential Comment SCANNED, Diff Path Review August foll, Sodium 138, Potassium 4.2, Chloride 99, Carbon Dioxide 30.0, Anion Gap 9, BUN 61 H, Creatinine 5.78 H, Estim Creat Clear Calc 14.56, Est GFR (MDRD) Af Amer 15 L, Est GFR (MDRD) Non-Af 12 L, BUN/Creatinine Ratio 10.6, Glucose 152 H, Calcium 8.5, Magnesium 2.4 03/16/23 14:30: Lactic Acid 2.5 H* 03/16/23 19:07: Lactic Acid 0.7 03/17/23 04:20: WBC 17.8 H, RBC 3.12 L, Hgb 8.1 L, Hct 28.9 L, MCV 92.6, MCH 26.0 L, MCHC 28.0 L, RDW Std Deviation 58.4 H, RDW Coeff of Francisco 17.2 H, Plt Count 250, MPV 11.1, Immature Gran % (Auto) 0.700, Neut % (Auto) 74.3 H, Lymph % (Auto) 12.1 L, [place] % (Auto) 10.2 H, Eos % (Auto) 2.1, Baso % (Auto) 0.6, Absolute Neuts (auto) 13.2 H, Absolute Lymphs (auto) 2.16, Nucleated RBC % 0, Differential Comment SCANNED, Diff Path Review August foll, Hypochromasia 1+, Sodium 139, Potassium 3.9, Chloride 105, Carbon Dioxide 27.0, Anion Gap 7, BUN 60 H, Creatinine 5.49 H, Estim Creat Clear Calc 15.33, Est GFR (MDRD) Af Amer 16 L, Est GFR (MDRD) Non-Af 13 L, BUN/Creatinine Ratio 10.9, Glucose 99, Calcium 7.6 L, Total Bilirubin 0.60, AST 10 L, ALT 10 L, Alkaline Phosphatase 205 H, Total Protein 6.5, Albumin 2.1 L, Globulin 4.4 H, Albumin/Globulin Ratio 0.5 L 03/17/23 08:20: Procalcitonin 18.37 H Microbiology: Microbiology 03/16/23 15:50 Mucosa - Nasopharyngeal Coronavirus COVID-19 PCR - Final 03/16/23 14:30 Nasal Secretion SARS-CoV-2 & FLU Antigen (Rapid) - Final Radiography Diagnostic Testing: Radiology Impression Chest X-Ray 03/16/23 14:13 IMPRESSION: Limited inspiratory effort due to the patient''s medical condition. No acute abnormality is seen. Electronically Signed: Jesus Alberto Munoz MD at 14:56 EST , Abdomen/Pelvis CT 03/16/23 16:59 IMPRESSION: Enlarged liver and spleen. No sign of bowel obstruction. Right hydronephrosis with right hydroureter. Nonobstructing right renal calculi. Electronically Signed: Lauro Galaviz DO at 20:19 EST , D/C Instructions Discharge Diet: No restrictions Weight Bearing Status: Weight bearing as tolerated Meaningful Use Info Meaningful Use Diagnoses (Choose all that apply): None applicable Discharge Plan Admission Admit Date/Time: 03/16/23 20:32 Primary Reason for Your Visit: Septic shock, pyelonephritis with right-sided hydronephrosis Attending Provider: Jm Holbrook Primary Care Provider: Cameron Romero Consulting Providers: Laurent Bernal; Michele Cohen; Maureen Ferguson; Luis Amador; Jesus Alberto Munoz; Cruz Ocampo Instructions Additional Instructions / Restrictions: Continue cefepime, linezolid and Levophed as needed at outside hospital. Continue all other home medications as prescribed. Discharge Orders/Prescriptions Prescriptions: Continued loperamide 2 mg Tablet 2 mg PO Q6H PRN (Reason: DIARRHEA ) magnesium hydroxide [Milk of Magnesia] 400 mg/5 mL Suspension 400 mg PO DAILY PRN (Reason: CONSTIPATION ) trazodone 100 mg Tablet 100 mg PO QHS sertraline 25 mg Tablet 25 mg PO DAILY gabapentin 100 mg Capsule 100 mg PO DAILY hydrocortisone 10 mg Tablet 15 mg PO DAILY Hold Instructions: Resume on 09/23/22. midodrine 10 mg Tablet 10 mg PO DAILY PRN (Reason: DIZZINESS ) Rx Instructions: (do not give last dose of day after 6PM or within 4 hrs of bedtime) ferrous gluconate [Ferate] 240 mg (27 mg iron) tablet 240 mg PO BID hydrocortisone 10 mg tablet 10 mg PO QHS levothyroxine 75 mcg tablet 75 mcg PO DAILY sevelamer carbonate 800 mg tablet 800 mg PO TIDCM simethicone [Gas Relief (simethicone)] 80 mg tablet,chewable 80 mg PO BID PRN (Reason: GAS RELIEF) Referrals / Follow Up: Cameron Romero DO [Primary Care Provider] - Disposition Disposition (needs filled in before D/C Order can be placed): Acute Care Hospital Charges/Coding Visit Charges Inpatient E&M: 67207 Disch Hosp >30min
--- NOTE | 2023-03-17 14:24 | CHAPLAIN ---
Type of Pastoral Visit _x__ Initial Visit ___ Follow-up Visit ___ On-call Visit ___ General Patient Visit ___ Spiritual Assessment ___ Family Conference ___ Bereavement ___ Rapid Response ___ Code Blue ___ Other (describe below) Pastoral Care Referral From _x__ Patient ___ Family ___ Nurse ___ Physician ___ [place] Blocker ___ Industrial Analyst ___ Other (describe below) Sacrament/Intervention _x__ Active listening ___ Anointing ___ Samaritan ___ Bereavement ___ Communion ___ Ashley exploration ___ ___ Life review _x__ Prayer ___ Reconciliation ___ Sacrament of Sick _x__ Supportive presence ___ Wedding ___ Other (describe below) Pastoral Comments patient will be transferred soon to another facility; pt has been seen in previous admissions and remembers this cabinet finisher; pt reports on his health and responds to how he is coping by saying that just have to go with what is needed; pt has family support; pt concerned for family that has to travel to see him; pt acknowledges the value of prayer and welcomes one spoken for him at this time
[2023-03-18 10:44] LABS: Pathologist Review Reviewed
[2023-03-18 10:48] LABS: Pathologist Review Reviewed
== END 2023-03-17 12:50 | disposition short-term general hospital (02) | DRG 871 ==
LOC: ED 20:30 → ICU 20:47
PROVIDERS: Physician Assistant; Admitting Provider Family Medicine; Emergency Provider Emergency Medicine; PCP Family Medicine; Visit Provider Hospitalist
DX: A41.9 Sepsis, unspecified organism (principal); R65.21 Severe sepsis with septic shock; L89.213 Pressure ulcer of right hip, stage 3; N18.6 End stage renal disease; I13.2 Hypertensive heart and chronic kidney disease with heart failure and with stage 5 chronic kidney disease, or end stage renal disease; G82.20 Paraplegia, unspecified; E27.40 Unspecified adrenocortical insufficiency; I50.22 Chronic systolic (congestive) heart failure; Z68.42 Body mass index [BMI] 45.0-49.9, adult; M86.68 Other chronic osteomyelitis, other site; N13.6 Pyonephrosis; I27.21 Secondary pulmonary arterial hypertension; E66.01 Morbid (severe) obesity due to excess calories; Q05.9 Spina bifida, unspecified; Z99.2 Dependence on renal dialysis; F32.A Depression, unspecified; D50.9 Iron deficiency anemia, unspecified; E03.9 Hypothyroidism, unspecified; K21.9 Gastro-esophageal reflux disease without esophagitis; G47.33 Obstructive sleep apnea (adult) (pediatric); F41.9 Anxiety disorder, unspecified; Z98.2 Presence of cerebrospinal fluid drainage device; Z20.822 Contact with and (suspected) exposure to COVID-19; R33.8 Other retention of urine; Z79.899 Other long term (current) drug therapy; Z79.890 Hormone replacement therapy
CPT/HCPCS: 71045; 74177; 80048; 80053; 83605; 83735; 84145; 85025; 87040; 87077; 87428; 87633; 87635; 90937; 94002; 94668; 97802; 99252; 99284; J2020; J7030; J7040; J7050; Q9967; A4216; G0257; G0463

== ENCOUNTER 2023-04-19 18:35 | Inpatient (IN) | payer MEDICARE, MEDICAID, SELFPAY ==
[2023-04-19 18:36] VITALS: BP 110/96; PULSE 105; RESP 26; TEMP 37.2; O2SAT 89
[2023-04-19 18:53] VITALS: O2SAT 87
--- NOTE | 2023-04-19 18:59 | EKG12_ITS ---
Test Reason : DYSRHYTHMIA Blood Pressure : / mmHG Vent. Rate : 097 BPM Atrial Rate : 097 BPM P-R Int : 124 ms QRS Dur : 086 ms QT Int : 358 ms P-R-T Axes : 000 177 176 degrees QTc Int : 454 ms Normal sinus rhythm Right axis deviation Inferior infarct , age undetermined Abnormal ECG Confirmed by EDITA DANIEL, MATEO ([id number]), map editor CHARITO WAGGONER ([id number]) on 04/20/2023 10:59:06 AM Referred By: Confirmed By:MATEO KOHLER MD
--- NOTE | 2023-04-19 19:14 | EX.ED.DYSGE1 ---
HPI <LEXX Feliciano - Last Filed: 04/19/23 21:01> History of Present Illness Chief Complaint: Fever Narrative Narrative: 27-year-old male has history of ESRD on HD, orthostatic hypotension, nephrostomy tube, chronic sacral decubitus ulcer secondary to spina bifida and paraplegia presents with 2 days of low-grade fever and congestion and cough. He felt short of breath was found to be hypoxic here. He does not wear home oxygen. He states he has a nephrostomy tube placed by [facility]. It has been draining some blood but that is typical when they change it. It does not seem to be draining urine into his bag today. 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, stage 3 Pressure ulcer Right-sided heart failure Secondary pulmonary arterial hypertension Sleep apnea Spina bifida Systolic CHF Umbilical hernia Home Medications gabapentin 100 mg capsule 100 mg PO DAILY NEUROPATHY 09/17/22 [History Last Taken 03/16/23] hydrocortisone 10 mg tablet 15 mg PO DAILY ALLERGIES 09/17/22 [History Last Taken 03/16/23] loperamide 2 mg tablet 2 mg PO Q6H PRN DIARRHEA 09/17/22 [History Last Taken Unknown] magnesium hydroxide 400 mg/5 mL oral suspension (Milk of Magnesia) 400 mg PO DAILY PRN CONSTIPATION 09/17/22 [History Last Taken Unknown] midodrine 10 mg tablet 10 mg PO DAILY PRN DIZZINESS 09/17/22 [History Last Taken Unknown] sertraline 25 mg tablet 25 mg PO DAILY DEPRESSION 09/17/22 [History Last Taken 03/16/23] trazodone 100 mg tablet 100 mg PO QHS SLEEP 09/17/22 [History Last Taken 03/15/23] simethicone 80 mg chewable tablet (Gas Relief (simethicone)) 80 mg PO BID PRN GAS RELIEF 10/28/22 [History Last Taken Unknown] ferrous gluconate 240 mg (27 mg iron) tablet (Ferate) 240 mg PO BID SUPPLEMENT 02/18/23 [History Last Taken 03/16/23] hydrocortisone 10 mg tablet 10 mg PO QHS ALLERGIES 03/16/23 [History Last Taken 03/15/23] levothyroxine 75 mcg tablet 75 mcg PO DAILY THYROID 03/16/23 [History Last Taken 03/16/23] sevelamer carbonate 800 mg tablet 800 mg PO TIDCM KIDNEYS 03/16/23 [History Last Taken 03/16/23] Allergy/AdvReac Type Severity Reaction Status Date / Time ampicillin Allergy rash Verified 03/16/23 13:44 daptomycin Allergy Hives Verified 03/16/23 13:44 fentanyl Allergy Rash Verified 03/16/23 13:44 latex Allergy Hives Verified 03/16/23 13:44 meropenem Allergy rash Verified 03/16/23 13:44 morphine Allergy Hives Verified 03/16/23 13:44 sulbactam [From Unasyn] Allergy Hives Verified 03/16/23 13:44 vancomycin Allergy Hives Verified 03/16/23 13:44 Family History Grandfather Heart disease Father Hypertension Mother Hyperlipidemia Surgical History History of back surgery History of foot surgery History of kidney surgery History of ventriculoperitoneal shunting S/P cutaneous-vesicostomy S/P ureteral stent placement Status post laser lithotripsy of ureteral calculus Social History household members: family Smoking Status: Never smoker second hand exposure: Yes alcohol intake: never substance use type: does not use ROS <LEXX Feliciano - Last Filed: 04/19/23 21:01> ROS ED ROS Narrative Constitutional: Positive for fever, malaise. ENT: Positive for rhinorrhea. CVS: Negative for palpitations, chest pain. Respiratory: Positive for shortness of breath, cough. GI: Negative for abdominal pain, nausea, vomiting. Neuro: Negative for headache. EXAM <LEXX Feliciano - Last Filed: 04/19/23 21:01> Physical Exam Narrative Exam Narrative: CONST: Patient sitting in motorized wheelchair in no acute distress. EYES: Normal inspection. ENT: Normal inspection, moist mucous membranes. NECK: Normal inspection. No meningismus. RESP: No respiratory distress, bibasilar wheezing. On nasal cannula 2 L. CVS: Regular rate and rhythm, no murmur, no gallop. ABD: Soft and nontender, no guarding or rebound. Ileostomy present. SKIN: Unable to do full skin exam as he cannot stand and Jessy lift not available to get in bed. NEURO: Oriented x4. PSYCH: Normal affect. Const Vital Signs: 04/19/23 18:36 04/19/23 18:53 04/19/23 19:45 Temperature 99 F Temperature Source Temporal Pulse Rate 105 H 94 Respiratory Rate 26 H 18 Respiratory Pattern Normal Blood Pressure 110/96 H Blood Pressure Mean 100 Pulse Ox 89 87 Oxygen Delivery Method Room Air Room Air <Dr. Eugenio Myaorga MD - Last Filed: 04/19/23 23:10> Physical Exam Const Vital Signs: 04/19/23 18:36 04/19/23 18:53 04/19/23 19:45 Temperature 99 F Temperature Source Temporal Pulse Rate 105 H 94 Respiratory Rate 26 H 18 Respiratory Pattern Normal Blood Pressure 110/96 H Blood Pressure Mean 100 Pulse Ox 89 87 Oxygen Delivery Method Room Air Room Air <Dr. Arias Hernandez MD - Last Filed: 04/19/23 19:25> Physical Exam Const Vital Signs: 04/19/23 18:36 04/19/23 18:53 04/19/23 19:45 Temperature 99 F Temperature Source Temporal Pulse Rate 105 H 94 Respiratory Rate 26 H 18 Respiratory Pattern Normal Blood Pressure 110/96 H Blood Pressure Mean 100 Pulse Ox 89 87 Oxygen Delivery Method Room Air Room Air MDM <LEXX Feliciano - Last Filed: 04/19/23 21:01> MDM MDM Narrative Medical decision making narrative: History gathered from: Parents, patient Patient had low-grade fevers, cough and congestion. Was 80% on room air and placed on 2 L. BP 100/70s. He appears ill but nontoxic. Bilateral lungs have faint wheezing so I ordered a DuoNeb. Labs show white count of 16.8, chronic anemia at 7.5, normal platelets at 246. He has end-stage renal disease with creatinine 5.77 and normal electrolytes. It looks like his alkaline phosphatase is always high with normal LFTs. CXR has very limited view due to his body habitus but shows no acute infiltrate and his COVID/influenza test is negative. He also had significant amount of diarrhea here according to nursing staff so stool culture was sent. Since no clear source of infection has been found a CT of the abdomen/pelvis was ordered since his nephrostomy tube has not been draining much urine today. This will rule out for obstruction as well as assess for lower lobe pneumonia. Tests are pending. I have personally performed a face to face assessment of the patient and have reviewed the BASIL Note. I performed a substantive portion of the visit including all aspects of the following. My martinez findings include: History is remarkable for shortness of breath and cough. Patient denies fever or chills. Patient is not on oxygen at home. He presents from home. He denies headache. He denies rhinorrhea or congestion. He denies ear pain. He denies exposure to anyone has been ill. He presented in his wheelchair. Unable to get him to a bed since the lift required is not available at this time. Exam is remarkable for tachycardia and tachypnea and hypoxia. He is not febrile. He is heavyset. Head is atraumatic normocephalic. Ears normal. Posterior pharynx normal. Trachea is midline. There is no in-store extra stridor. Patient has bilateral wheezing left greater than right. Question of end inspiratory rales on the left. Heart is rapid and regular. There is no murmur, gallop or rub. Abdomen benign. He has a ileostomy. There is little to no urine in his bag. He has no CVA tenderness. Unable to do a complete dermatologic exam since he cannot be lifted from his wheelchair. Medical Decision Making with cough, hypoxia tachycardia tachypnea concern patient has pneumonia and possible sepsis. Sepsis workup was undertaken. Will obtain chest x-ray, CBC to assess white count and H&H. Additional blood work was obtained to assess for endorgan dysfunction. Other additions or changes: [None] Lab Data Attestation: I reviewed the patient's lab results. Labs: Laboratory Results - last 24 hr 04/19/23 04/19/23 19:50 20:54 WBC 16.8 H RBC 2.67 L Hgb 7.5 L Hct 25.2 L MCV 94.4 H MCH 28.1 MCHC 29.8 L RDW Std Deviation 67.3 H RDW Coeff of Francisco 19.5 H Plt Count 246 MPV 10.6 Immature Gran % (Auto) 0.500 Neut % (Auto) 78.0 H Lymph % (Auto) 10.2 L [place] % (Auto) 9.4 Eos % (Auto) 1.2 Baso % (Auto) 0.7 Absolute Neuts (auto) 13.1 H Absolute Lymphs (auto) 1.71 Nucleated RBC % 0 Differential Comment SEE COMMENT Diff Path Review May foll Platelet Estimate ADEQUATE RBC Morphology N CHROM Hypochromasia 1+ Anisocytosis 1+ Macrocytosis 1+ PT 18.0 H INR 1.5 APTT 35.3 Sodium 138 Potassium 4.5 Chloride 104 Carbon Dioxide 28.0 Anion Gap 6 BUN 70 H Creatinine 5.77 H Est GFR (MDRD) Af Amer 15 L Est GFR (MDRD) Non-Af 12 L BUN/Creatinine Ratio 12.1 Glucose 116 H Lactic Acid 1.9 Calcium 8.7 Total Bilirubin 0.80 AST 14 L ALT 14 L Alkaline Phosphatase 300 H Total Protein 6.8 Albumin 2.1 L Globulin 4.7 H Albumin/Globulin Ratio 0.4 L Radiography Diagnostic Testing: Clinical Impression(s) from Imaging Studies Chest X-Ray 04/19/23 20:23 IMPRESSION: No acute interval change. Electronically Signed: Taylor Bustamante MD at 20:46 EST Reading Location ID and State: [email or web address] / [email or web address] , Service support , Chest/Abdomen/Pelvis CT 04/19/23 21:48 IMPRESSION: CT chest: Mild bilateral atelectasis otherwise no acute cardiac pulmonary disease. Status post right nephrostomy with mild hydronephrosis. Small stones within the right kidney, unchanged. No bowel obstruction or focal inflammatory process throughout the gastrointestinal tract, findings stable in the interval. Artifact versus trace ascites surrounding the liver, unchanged. Electronically Signed: Taylor Bustamante MD at 22:47 EST Reading Location ID and State: [id number] / [employer] , Service support , <Dr. Eugenio Mayorga MD - Last Filed: 04/19/23 23:10> MDM MDM Narrative Medical decision making narrative: History gathered from: Parents, patient Patient had low-grade fevers, cough and congestion. Was 80% on room air and placed on 2 L. BP 100/70s. He appears ill but nontoxic. Bilateral lungs have faint wheezing so I ordered a DuoNeb. Labs show white count of 16.8, chronic anemia at 7.5, normal platelets at 246. He has end-stage renal disease with creatinine 5.77 and normal electrolytes. It looks like his alkaline phosphatase is always high with normal LFTs. CXR has very limited view due to his body habitus but shows no acute infiltrate and his COVID/influenza test is negative. He also had significant amount of diarrhea here according to nursing staff so stool culture was sent. Since no clear source of infection has been found a CT of the abdomen/pelvis was ordered since his nephrostomy tube has not been draining much urine today. This will rule out for obstruction as well as assess for lower lobe pneumonia. Tests are pending. I have personally performed a face to face assessment of the patient and have reviewed the BASIL Note. I performed a substantive portion of the visit including all aspects of the following. My martinez findings include: History is remarkable for shortness of breath and cough. Patient denies fever or chills. Patient is not on oxygen at home. He presents from home. He denies headache. He denies rhinorrhea or congestion. He denies ear pain. He denies exposure to anyone has been ill. He presented in his wheelchair. Unable to get him to a bed since the lift required is not available at this time. Exam is remarkable for tachycardia and tachypnea and hypoxia. He is not febrile. He is heavyset. Head is atraumatic normocephalic. Ears normal. Posterior pharynx normal. Trachea is midline. There is no in-store extra stridor. Patient has bilateral wheezing left greater than right. Question of end inspiratory rales on the left. Heart is rapid and regular. There is no murmur, gallop or rub. Abdomen benign. He has a ileostomy. There is little to no urine in his bag. He has no CVA tenderness. Unable to do a complete dermatologic exam since he cannot be lifted from his wheelchair. Medical Decision Making with cough, hypoxia tachycardia tachypnea concern patient has pneumonia and possible sepsis. Sepsis workup was undertaken. Will obtain chest x-ray, CBC to assess white count and H&H. Additional blood work was obtained to assess for endorgan dysfunction. Other additions or changes: Single view portable chest x-ray is limited. He has limited inspiration. Unable to determine if he has cardiomegaly or not. X-ray was compared to prior and is unchanged. There is no effusion. There is no obvious infiltrate. There is no pneumothorax. Medina rods noted. Patient does have an elevated white count of 16.8 thousand. He also has anemia with an H&H 7.5 and 25.2. Indices are slightly elevated. Coags reveal PT of 18.0 and INR 1.5. Electrolyte panel is remarkable for BUN/creatinine of 70 and 5.77. Patient is on hemodialysis. Lactate is normal at 1.9. Hepatic enzymes reveal elevated alkaline phosphatase at 300. Patient has similar presentation and was found to have pyelonephritis with abscess. Since there is no obvious infiltrate patient is not making urine we will obtain CT to assess for pyelonephritis, intra-abdominal abscess, perinephric abscess. Lab Data Lab results narrative: H&H has slowly been declining over the past 2 months. There is approximately 2 to 2.5 g drop. This would explain shortness of breath would not explain his hypoxia. Labs: Laboratory Results - last 24 hr 04/19/23 04/19/23 19:50 20:54 WBC 16.8 H RBC 2.67 L Hgb 7.5 L Hct 25.2 L MCV 94.4 H MCH 28.1 MCHC 29.8 L RDW Std Deviation 67.3 H RDW Coeff of Francisco 19.5 H Plt Count 246 MPV 10.6 Immature Gran % (Auto) 0.500 Neut % (Auto) 78.0 H Lymph % (Auto) 10.2 L [place] % (Auto) 9.4 Eos % (Auto) 1.2 Baso % (Auto) 0.7 Absolute Neuts (auto) 13.1 H Absolute Lymphs (auto) 1.71 Nucleated RBC % 0 Differential Comment SEE COMMENT Diff Path Review May foll Platelet Estimate ADEQUATE RBC Morphology N CHROM Hypochromasia 1+ Anisocytosis 1+ Macrocytosis 1+ PT 18.0 H INR 1.5 APTT 35.3 Sodium 138 Potassium 4.5 Chloride 104 Carbon Dioxide 28.0 Anion Gap 6 BUN 70 H Creatinine 5.77 H Est GFR (MDRD) Af Amer 15 L Est GFR (MDRD) Non-Af 12 L BUN/Creatinine Ratio 12.1 Glucose 116 H Lactic Acid 1.9 Calcium 8.7 Total Bilirubin 0.80 AST 14 L ALT 14 L Alkaline Phosphatase 300 H Total Protein 6.8 Albumin 2.1 L Globulin 4.7 H Albumin/Globulin Ratio 0.4 L Radiography Diagnostic Testing: Clinical Impression(s) from Imaging Studies Chest X-Ray 04/19/23 20:23 IMPRESSION: No acute interval change. Electronically Signed: Taylor Bustamante MD at 20:46 EST , Chest/Abdomen/Pelvis CT 04/19/23 21:48 IMPRESSION: CT chest: Mild bilateral atelectasis otherwise no acute cardiac pulmonary disease. Status post right nephrostomy with mild hydronephrosis. Small stones within the right kidney, unchanged. No bowel obstruction or focal inflammatory process throughout the gastrointestinal tract, findings stable in the interval. Artifact versus trace ascites surrounding the liver, unchanged. Electronically Signed: Taylor Bustamante MD at 22:47 EST , Treatment and Re-Evaluation :: Case was discussed with hospitalist Dr. Silva. He requested a respiratory panel. Patient will be admitted for hypoxia. The etiology of his hypoxia is unknown. <Dr. Arias Hernandez MD - Last Filed: 04/19/23 19:25> [facility] Narrative Medical decision making narrative: I have personally performed a face to face assessment of the patient and have reviewed the BASIL Note. I performed a substantive portion of the visit including all aspects of the following. My martinez findings include: History is remarkable for shortness of breath and cough. Patient denies fever or chills. Patient is not on oxygen at home. He presents from home. He denies headache. He denies rhinorrhea or congestion. He denies ear pain. He denies exposure to anyone has been ill. He presented in his wheelchair. Unable to get him to a bed since the lift required is not available at this time. Exam is remarkable for tachycardia and tachypnea and hypoxia. He is not febrile. He is heavyset. Head is atraumatic normocephalic. Ears normal. Posterior pharynx normal. Trachea is midline. There is no in-store extra stridor. Patient has bilateral wheezing left greater than right. Question of end inspiratory rales on the left. Heart is rapid and regular. There is no murmur, gallop or rub. Abdomen benign. He has a ileostomy. There is little to no urine in his bag. He has no CVA tenderness. Unable to do a complete dermatologic exam since he cannot be lifted from his wheelchair. Medical Decision Making with cough, hypoxia tachycardia tachypnea concern patient has pneumonia and possible sepsis. Sepsis workup was undertaken. Will obtain chest x-ray, CBC to assess white count and H&H. Additional blood work was obtained to assess for endorgan dysfunction. Other additions or changes: [None] Lab Data Labs: Laboratory Results - last 24 hr 04/19/23 04/19/23 19:50 20:54 WBC 16.8 H RBC 2.67 L Hgb 7.5 L Hct 25.2 L MCV 94.4 H MCH 28.1 MCHC 29.8 L RDW Std Deviation 67.3 H RDW Coeff of Francisco 19.5 H Plt Count 246 MPV 10.6 Immature Gran % (Auto) 0.500 Neut % (Auto) 78.0 H Lymph % (Auto) 10.2 L [place] % (Auto) 9.4 Eos % (Auto) 1.2 Baso % (Auto) 0.7 Absolute Neuts (auto) 13.1 H Absolute Lymphs (auto) 1.71 Nucleated RBC % 0 Differential Comment SEE COMMENT Diff Path Review May foll Platelet Estimate ADEQUATE RBC Morphology N CHROM Hypochromasia 1+ Anisocytosis 1+ Macrocytosis 1+ PT 18.0 H INR 1.5 APTT 35.3 Sodium 138 Potassium 4.5 Chloride 104 Carbon Dioxide 28.0 Anion Gap 6 BUN 70 H Creatinine 5.77 H Est GFR (MDRD) Af Amer 15 L Est GFR (MDRD) Non-Af 12 L BUN/Creatinine Ratio 12.1 Glucose 116 H Lactic Acid 1.9 Calcium 8.7 Total Bilirubin 0.80 AST 14 L ALT 14 L Alkaline Phosphatase 300 H Total Protein 6.8 Albumin 2.1 L Globulin 4.7 H Albumin/Globulin Ratio 0.4 L Radiography Diagnostic Testing: Clinical Impression(s) from Imaging Studies Chest X-Ray 04/19/23 20:23 IMPRESSION: No acute interval change. Electronically Signed: Taylor Bustamante MD at 20:46 EST , Chest/Abdomen/Pelvis CT 04/19/23 21:48 IMPRESSION: CT chest: Mild bilateral atelectasis otherwise no acute cardiac pulmonary disease. Status post right nephrostomy with mild hydronephrosis. Small stones within the right kidney, unchanged. No bowel obstruction or focal inflammatory process throughout the gastrointestinal tract, findings stable in the interval. Artifact versus trace ascites surrounding the liver, unchanged. Electronically Signed: Taylor Bustamante MD at 22:47 EST , Discharge Plan Triage Chief Complaint: Fever ED Midlevel Provider: Ana Saunders ED Provider: Eugenio Mayorga Dx/Rx/DC Orders Clinical Impression: Upper respiratory infection, Leukocytosis, Hypoxia, Hydronephrosis, right, Malfunction of nephrostomy tube Prescriptions: No Action loperamide 2 mg Tablet 2 mg PO Q6H PRN (Reason: DIARRHEA ) magnesium hydroxide [Milk of Magnesia] 400 mg/5 mL Suspension 400 mg PO DAILY PRN (Reason: CONSTIPATION ) trazodone 100 mg Tablet 100 mg PO QHS sertraline 25 mg Tablet 25 mg PO DAILY gabapentin 100 mg Capsule 100 mg PO DAILY hydrocortisone 10 mg Tablet 15 mg PO DAILY Hold Instructions: Resume on 09/23/22. midodrine 10 mg Tablet 10 mg PO DAILY PRN (Reason: DIZZINESS ) Rx Instructions: (do not give last dose of day after 6PM or within 4 hrs of bedtime) ferrous gluconate [Ferate] 240 mg (27 mg iron) tablet 240 mg PO BID hydrocortisone 10 mg tablet 10 mg PO QHS levothyroxine 75 mcg tablet 75 mcg PO DAILY sevelamer carbonate 800 mg tablet 800 mg PO TIDCM simethicone [Gas Relief (simethicone)] 80 mg tablet,chewable 80 mg PO BID PRN (Reason: GAS RELIEF) Primary Care Provider: Cameron Romero Referrals: Cameron Romero DO [Primary Care Provider] - Disposition Disposition: Acute Care Hospital [facility]
[2023-04-19 19:45] VITALS: PULSE 94; RESP 18
[2023-04-19] MEDS: Ipratropium/Albuterol Sulfate 3 ML AMPUL.NEB INHALATION (19:45)
[2023-04-19 20:11] LABS: Absolute Lymphocyte Count 1.71 X10^3/uL (0.83-4.51); Absolute Neutrophil Count 13.1 X10^3/uL (2.0-7.7); Basophil# 0.12 X10^3/uL; Basophil% 0.7 % (0-1); Eosinophils% 1.2 % (0-5); Hematocrit 25.2 % (40-54); Hemoglobin 7.5 g/dL (13.0-16.5); Lymphocyte # 1.71 X10^3/ul (0.83-4.51); Lymphocyte % 10.2 % (19-41); Mean Corp Hgb Conc 29.8 g/dL (32-36); Mean Corpuscular Hgb 28.1 pg (27.0-32.0); Mean Corpuscular Volume 94.4 fL (80-94); Mean Platelet Vol. 10.6 fl (6.2-12.0); Monocyte# 1.58 X10^3/uL; Monocyte% 9.4 % (0-10); NRBC Flagged by Analyzer 0 % (0-5); Neutrophil # 13.06 X10^3/uL (2.7-7.7); POSITIVE DIFFERENTIAL YES; POSITIVE MORPHOLOGY YES; Platelet Count 246 K/mm3 (150-450); RBC Distribution Width CV 19.5 % (11.6-14.6); RBC Distribution Width SD 67.3 fl (35.1-43.9); Red Blood Count 2.67 M/mm3 (4.6-6.2); White Blood Count 16.8 K/mm3 (4.4-11.0)
[2023-04-19 20:14] LABS: International Normalized Ratio 1.5
[2023-04-19 20:15] LABS: Partial Thromboplast Time 35.3 Seconds (24.1-36.2)
[2023-04-19] MEDS: Loperamide 2 MG Capsule 4 MG PO (20:17)
[2023-04-19 20:19] LABS: Differential Indicated SCAN CRITERIA MET
[2023-04-19 20:23] LABS: ALB/GLOB Ratio 0.4 RATIO (0.9-2.4); AST(SGOT) 14 U/L (15-37); Alanine Aminotransfer ALT/SGPT 14 U/L (16-61); Albumin, Serum 2.1 g/dL (3.2-5.0); Alkaline Phosphatase 300 U/L (45-117); Anion Gap 6 (5-15); BUN 70 mg/dL (7-18); BUN/Creat Ratio 12.1 RATIO (10-20); Calcium,Total 8.7 mg/dL (8.5-10.1); Chloride 104 mmol/L (98-107); Creatinine, Serum 5.77 mg/dL (0.70-1.30); EST Glomerular Filtration Rate 12 mL/min (>60); Est Glom Filt Rate - Afr Amer 15 mL/min (>60); Globulin 4.7 g/dL (2.2-4.2); Glucose 116 mg/dL (74-106); Potassium 4.5 mmol/L (3.5-5.1); Protein, Total 6.8 g/dL (6.4-8.2); Sodium Level 138 mmol/L (136-145)
--- NOTE | 2023-04-19 20:23 | RAD_ITS ---
STUDY: X-RAY CHEST REASON FOR EXAM: Male, 27 years old. cough TECHNIQUE: Single AP portable view of the chest. The images are under penetrated. COMPARISON: 03/16/2023. FINDINGS: Decreased inspiration with vascular crowding, otherwise lung herman are clear. There is no demonstrated pleural abnormality. Normal size heart. Normal mediastinum and akira. Normal visualized pulmonary arteries. Normal visualized aortic arch and descending thoracic aorta. Intramedullary dl fixation through the thoracic spine, stable. Unchanged right-sided FAT [employer] shunt in place. Normal visualized ribs, clavicles, and shoulders. There is no demonstrated abnormality of the visualized soft tissue structures of the upper abdomen. RAD/Chest 1 View (Portable) IMPRESSION: No acute interval change. Electronically Signed: Taylor Bustamante MD at 20:46 EST ,
[2023-04-19] MEDS: 0.9% Normal Saline (1000mL) 1,000 ML 999 ML IV (20:24)
[2023-04-19 20:27] LABS: Platelet Estimate ADEQUATE (ADEQ); Red Cell Morphology N CHROM NORMAL (NORM C&C)
[2023-04-19 20:28] LABS: Anisocytosis 1+; Hypochromasia 1+; Macrocytosis 1+
[2023-04-19 21:26] LABS: Lactic Acid 1.9 mmol/L (0.4-1.9)
--- NOTE | 2023-04-19 21:48 | CT_ITS ---
STUDY: CT CHEST, ABDOMEN T PELVIS WITH CONTRAST REASON FOR EXAM: Male, 27 years old. fever, nephrostomy tube not draining RADIATION DOSAGE (If Supplied By Facility): CTDIvol = ( 16.22 ) mGy, DLP = ( 1543.92 ) mGycm TECHNIQUE: Transaxial imaging was performed following intravenous administration of IV 100mL Isovue-370. Individualized dose optimization techniques were used for this CT. COMPARISON: 03/16/2023. FINDINGS: CHEST The lungs are underexpanded with bilateral lower lobe and right upper lobe atelectasis. There is no demonstrated pleural abnormality. Normal heart and pericardium. Normal mediastinum. Normal hilar regions. Normal unenhanced pulmonary arteries. Normal aorta arch and descending thoracic aorta. Postoperative changes with posterior fusion/Medina rods throughout the thoracic and lumbar spine with congenital deformity. Upper abdomen described indeterminant accompanying CT of the abdomen and pelvis report. ABDOMEN Lung bases as described above. The visualized portions of the heart are within normal limits. Normal liver. Question will trace ascites surrounding the liver. Normal gallbladder and extrahepatic biliary system. Normal spleen. Normal pancreas. Normal bilateral adrenal glands. Right-sided nephrostomy tube in place with moderate hydronephrosis. There are few tiny stones within the lower pole of the right kidney, largest measuring 6 mm. Areas of scarring through the left kidney otherwise unremarkable left kidney with no hydronephrosis. Normal visualized stomach. Normal small intestine. Normal colon. There is questionable right-sided ostomy. Appendix not visualized. Normal abdominal aorta. Normal inferior vena cava. Normal retroperitoneum. Mild thickening of the skin throughout the lower anterior abdominal wall at the pelvis region with stranding of the subcutaneous fat suggestive of cellulitis. . 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 Deformity of bilateral hips. PELVIS Suboptimally seen urinary bladder. Normal visualized small intestine. Normal visualized colon. There is no pelvic fluid. There is no pelvic lymphadenopathy or mass lesion. Normal visualized pelvic arteries. Question right-sided ostomy in place with clinical correlation recommended. Extensive postoperative changes with Medina rods through the thoracic and lumbar spine. 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 CT/CT Chest, Abd, Pel w/Contrast IMPRESSION: CT chest: Mild bilateral atelectasis otherwise no acute cardiac pulmonary disease. Status post right nephrostomy with mild hydronephrosis. Small stones within the right kidney, unchanged. No bowel obstruction or focal inflammatory process throughout the gastrointestinal tract, findings stable in the interval. Artifact versus trace ascites surrounding the liver, unchanged. Electronically Signed: Taylor Bustamante MD at 22:47 EST ,
--- NOTE | 2023-04-19 23:02 | HP.PCM.HOS_ITS ---
[facility] - General General Date of Admission: 04/19/23 Date of Service: 04/19/23 Chief Complaint: SOB, low-grade fever, congestion and cough. HPI Narrative OKSANA DAMIAN, is a 27 M with a past medical history of end-stage renal disease on hemodialysis; followed by Dr. 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 Mr. Damian reports his symptoms began approximately 2-3 days prior to admission with a gradual onset of dyspnea on exertion that progressed to shortness of breath at rest. He also admits to decreased urinary output from his right nephrostomy tube placed at [facility] where he was transferred from here for placement on March 17, 2023 after being diagnosed with UTI and hypotension secondary to sepsis with his family expressing concerns that his wound care for his sacral decubitus ulcer was suboptimal during that admission resulting in an acute worsening of his chronic sacral decubitus wound. He also apparently was transfused 2 units of blood during his stay at [place] as well. His parents were present at the bedside in the ER and they reported that he was not able to undergo his routine home dialysis on Wednesday because of persistent hypotension in the ~70 to 80 mmHg range. They also admit to loose stools contaminating his chronic stage III decubitus ulcer that have made it acutely worse. Finally, his mother has noticed an increased tendency to cough while he is eating and drinking with a suspicion for possible aspiration - likely of thin liquids. In the ER he was noted to have a CTA of the chest that was negative for acute pathologic changes but he was clinically suspected to have acute bronchitis with leukocytosis 16.8 present on admission and acute hypoxic respiratory insufficiency with an oxygen saturation of ~80% on room air likely due to to aspiration of thin liquids complicated by suspected diarrhea contaminating and exacerbating his chronic stage III sacral decubitus ulcer with a normal lactate of 1.9 mmol/L present on admission and he was then admitted to the general medical floor for ongoing care for stay that is expected to be greater than 48 hours. [facility] Medical History (Updated 04/20/23 @ 00:[address] Victor M Bernstein, DO) Anxiety BiPAP (biphasic positive airway pressure) dependence Chronic hypotension Chronic systolic (congestive) heart failure Decubitus ulcer Decubitus ulcer Dialysis patient Diarrhea ESRD (end stage renal disease) History of nephrolithiasis Hypotension Hypotensive episode Junctional escape rhythm Kidney disease Leukocytosis Morbid obesity Non-smoker Obstructive sleep apnea Paraplegia Paraplegic immobility syndrome Pericardial effusion (07/14/18) 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, stage 3 Pressure ulcer Right-sided heart failure Secondary pulmonary arterial hypertension Sleep apnea Spina bifida Systolic CHF Umbilical hernia Home Medications gabapentin 100 mg capsule 100 mg PO DAILY NEUROPATHY 09/17/22 [History Last Tien en 03/16/23] hydrocortisone 10 mg tablet 15 mg PO DAILY ALLERGIES 09/17/22 [History Last Taken 03/16/23] loperamide 2 mg tablet 2 mg PO Q6H PRN DIARRHEA 09/17/22 [History Last Taken Unknown] magnesium hydroxide 400 mg/5 mL oral suspension (Milk of Magnesia) 400 mg PO DAILY PRN CONSTIPATION 09/17/22 [History Last Taken Unknown] midodrine 10 mg tablet 10 mg PO DAILY PRN DIZZINESS 09/17/22 [History Last Taken Unknown] sertraline 25 mg tablet 25 mg PO DAILY DEPRESSION 09/17/22 [History Last Taken 03/16/23] trazodone 100 mg tablet 100 mg PO QHS SLEEP 09/17/22 [History Last Taken 03/15/23] simethicone 80 mg chewable tablet (Gas Relief (simethicone)) 80 mg PO BID PRN GAS RELIEF 10/28/22 [History Last Taken Unknown] ferrous gluconate 240 mg (27 mg iron) tablet (Ferate) 240 mg PO BID SUPPLEMENT 02/18/23 [History Last Taken 03/16/23] hydrocortisone 10 mg tablet 10 mg PO QHS ALLERGIES 03/16/23 [History Last Taken 03/15/23] levothyroxine 75 mcg tablet 75 mcg PO DAILY THYROID 03/16/23 [History Last Taken 03/16/23] sevelamer carbonate 800 mg tablet 800 mg PO TIDCM KIDNEYS 03/16/23 [History Last Taken 03/16/23] Allergy/AdvReac Type Severity Reaction Status Date / Time ampicillin Allergy rash Verified 03/16/23 13:44 daptomycin Allergy Hives Verified 03/16/23 13:44 fentanyl Allergy Rash Verified 03/16/23 13:44 latex Allergy Hives Verified 03/16/23 13:44 meropenem Allergy rash Verified 03/16/23 13:44 morphine Allergy Hives Verified 03/16/23 13:44 sulbactam [From Unasyn] Allergy Hives Verified 03/16/23 13:44 vancomycin Allergy Hives Verified 03/16/23 13:44 Family History Grandfather Heart disease Father Hypertension Mother Hyperlipidemia Surgical History History of back surgery History of foot surgery History of kidney surgery History of ventriculoperitoneal shunting S/P cutaneous-vesicostomy S/P ureteral stent placement Status post laser lithotripsy of ureteral calculus Social History household members: family Smoking Status: Never smoker second hand exposure: Yes alcohol intake: never substance use type: does not use ROS ROS Narrative Review of systems: General: Patient admits to fever and malaise. HENT: Admits to runny nose but denies sore throat or headache. EYES: Denies changes in vision. Resp: Patient admits to shortness of breath and cough. Cardiac: Denies chest pain or palpitations. GI: Denies abdominal pain, denies changes in bowel, had some nausea : He has noted decreased urinary output from his right nephrostomy tube with a scant amount of blood noted which is not unusual for him. Extremity: Denies swelling Musculoskeletal: Feels somewhat generally weak and unwell Neuro: Denies any numbness/tingling Heme: Denies any bleeding or bruising Skin: Patient has a chronic stage III sacral decubitus ulcer. Psychiatric: No complaints voiced Endocrine: No polyuria The rest of the 14 point ROS was negative except for positives in HPI. Vital Signs Vital Signs Vital Signs: 04/19/23 18:36 04/19/23 18:53 04/19/23 19:45 Temperature 99 F Temperature Source Temporal Pulse Rate 105 H 94 Respiratory Rate 26 H 18 Respiratory Pattern Normal Blood Pressure 110/96 H Blood Pressure Mean 100 Pulse Ox 89 87 Oxygen Delivery Method Room Air Room Air Physical Exam Const alert and oriented x3 Constitutional Narrative: Patient is morbidly obese and paraplegic in a motorized wheelchair but in no acute distress. General Appearance: cooperative HEENT normocephalic, head/scalp atraumatic, hearing grossly normal bilaterally and moist oral mucous membranes Eyes PERRL and EOMs intact bilaterally Neck no lymphadenopathy, supple and no JVD Resp Resp Narrative: Diminished breath sounds throughout with bibasilar wheezing. Cardio regular rate and regular rhythm GI normal to inspection, nondistended, normoactive bowel sounds, soft to palpation, non-tender and non-distended GI Narrative: Patient has ileostomy in place with no acute signs of infection. Extremity normal to inspection Skin Skin Narrative: Patient has a chronic stage III sacral decubitus ulcer that cannot be examined at this time he will need a Jessy lift because he cannot get into bed. Neuro oriented x3 and CN's II-XII intact bilaterally Sensorium / Orientation: awake, alert, oriented to person, oriented to place and oriented to time Speech: speech normal Psych affect normal Results Medical Records Data Attestation: I reviewed the patient's medical records Lab / Micro Data Attestation: I reviewed the patient's lab results. 04/19/23 19:50 04/19/23 19:50 Labs: Laboratory Results - last 24 hr 04/19/23 19:50: WBC 16.8 H, RBC 2.67 L, Hgb 7.5 L, Hct 25.2 L, MCV 94.4 H, MCH 28.1, MCHC 29.8 L, RDW Std Deviation 67.3 H, RDW Coeff of Francisco 19.5 H, Plt Count 246, MPV 10.6, Immature Gran % (Auto) 0.500, Neut % (Auto) 78.0 H, Lymph % (Auto) 10.2 L, [place] % (Auto) 9.4, Eos % (Auto) 1.2, Baso % (Auto) 0.7, Absolute Neuts (auto) 13.1 H, Absolute Lymphs (auto) 1.71, Nucleated RBC % 0, Differential Comment SEE COMMENT, Diff Path Review August, Platelet Estimate ADEQUATE, RBC Morphology N CHROM, Hypochromasia 1+, Anisocytosis 1+, Macrocytosis 1+, PT 18.0 H, INR 1.5, APTT 35.3, Sodium 138, Potassium 4.5, Chloride 104, Carbon Dioxide 28.0, Anion Gap 6, BUN 70 H, Creatinine 5.77 H, Est GFR (MDRD) Af Amer 15 L, Est GFR (MDRD) Non-Af 12 L, BUN/Creatinine Ratio 12.1, Glucose 116 H, Calcium 8.7, Total Bilirubin 0.80, AST 14 L, ALT 14 L, Alkaline Phosphatase 300 H, Total Protein 6.8, Albumin 2.1 L, Globulin 4.7 H, Albumin/Globulin Ratio 0.4 L 04/19/23 20:54: Lactic Acid 1.9 Micro: Microbiology 04/19/23 18:55 Nasal Secretion SARS-CoV-2 & FLU Antigen (Rapid) - Final Imagaing Radiology Impression Chest X-Ray 04/19/23 20:23 IMPRESSION: No acute interval change. Electronically Signed: Taylor Bustamante MD at 20:46 EST Reading Location ID and State: [employer] Information / [employer] , Service support , Chest/Abdomen/Pelvis CT 04/19/23 21:48 IMPRESSION: CT chest: Mild bilateral atelectasis otherwise no acute cardiac pulmonary disease. Status post right nephrostomy with mild hydronephrosis. Small stones within the right kidney, unchanged. No bowel obstruction or focal inflammatory process throughout the gastrointestinal tract, findings stable in the interval. Artifact versus trace ascites surrounding the liver, unchanged. Electronically Signed: Taylor Bustamante MD at 22:47 EST , Assessment & Plan Assessment/Plan (1) Acute bronchitis: QUALIFIERS: Bronchitis organism: unspecified organism Qualified Code(s): J20.9 - Acute bronchitis, unspecified (2) Acute respiratory insufficiency: (3) Leukocytosis: QUALIFIERS: Leukocytosis type: unspecified Qualified Code(s): D72.829 - Elevated white blood cell count, unspecified (4) Diarrhea: QUALIFIERS: Diarrhea type: presumed infectious Qualified Code(s): R19.7 - Diarrhea, unspecified PLAN: Plan 1. Acute bronchitis with leukocytosis of 16.8 present on admission in the setting of numerous antibiotic allergies (ampicillin, daptomycin, Merrem, Unasyn and vancomycin) in addition to allergies to both morphine and fentanyl - Admit to general medical floor and await final results of respiratory viral panel. Continue IV doxycycline and as needed nebulizer treatments. Give Tylenol as needed pain or fever and avoid both morphine and fentanyl. Give IV Zofran as needed nausea. Give Mucinex scheduled twice daily to help mobilize secretions. 2. Acute hypoxic respiratory insufficiency arising from #1 with suspected aspiration in the setting of known chronic secondary pulmonary arterial hypertension and morbid obesity; with BMI of 46.8 present on admission plus SOPHIA - Wean supplemental oxygen as tolerated. Weight loss will be recommended. Continue BiPAP as previous. Finally, we will consult speech therapy for video-based swallow evaluation to confirm our clinical suspicion with help appreciated in advance. 3. Diarrhea adding to the pathology of #1 & #2 - Place on enteric precautions and check stool studies: For C. difficile toxin A & B PCR, stool ova and parasites, fecal leukocytes and Hemoccult. We will start oral Flagyl if test returns positive. 4. Spina bifida; with paraplegia and chronic stage III decubitus ulcer status post ileostomy with known history of MRSA/MDRO made much worse by recent diarrhea compounding #1 - #3 - Continue supportive care. Finally, we will consult wound nurse to see this patient in the a.m. on rounds for further recommendations with help appreciated in advance. 5. Recent admission here for right renal calculus with UTI and sepsis; status post right nephrostomy tube placed at [facility] along with a transfusion of 2 units of packed red blood cells - Noted. CT this admission is showing no signs of acute infection or obstruction. 6. End-stage renal disease on hemodialysis; followed by Dr. Estevez of nephrology adding to the pathology of #1 - #5 - We we will consult Dr. Estevez to see this patient on rounds in the a.m. for further recommendations for resuming dialysis in the a.m. with help appreciated in advance. 7. History of CAUSTIC PUMP OPERATOR shunt - Noted. 8. Chronic right-sided systolic CHF - Stable with no evidence of recurrence at this time. 9. Hypothyroidism - Continue Synthroid and check TSH this admission. 10. Iron deficiency anemia - Resume oral iron supplementation as previous. 11. History of orthostatic hypotension; on midodrine - Continue Midodrine. 12. Depression with anxiety - Resume home regimen plus give Xanax as needed for breakthrough symptoms. 13. DVT prophylaxis - Heparin 5,000 units SQ 3 times daily plus SCDs. Total time: Approximately 55 minutes. Charges/Coding Visit Charges Inpatient E&M: 25157 Init Hosp L2
[2023-04-19 23:24] VITALS: BP 103/54; PULSE 89; RESP 16; O2SAT 96; O2SAT 97; BMI 46.7
[2023-04-20] VITALS (21 sets, daily range): BP systolic 79–295; BP diastolic 41–69; PULSE 67–103; RESP 14–20; TEMP 36.5–37.9; O2SAT 95–100; BMI 44.3; BMI 44.6; BMI 43.7
[2023-04-20] MEDS: traZODone 100 MG Tablet PO (01:58)
[2023-04-20] MEDS: Contrast Allergy Safety Check IV (06:21)
[2023-04-20] MEDS: Heparin Injection (Vial) 5,000 UNIT/ML VIAL 5000 UNIT SC (06:21)
[2023-04-20 06:42] LABS: Absolute Neutrophil Count 10.2 X10^3/uL (2.0-7.7); Basophil# 0.12 X10^3/uL; Basophil% 0.9 % (0-1); Eosinophil# 0.46 X10^3/uL; Eosinophils% 3.3 % (0-5); Hemoglobin 6.5 g/dL (13.0-16.5); Lymphocyte % 13.7 % (19-41); Mean Corp Hgb Conc 28.3 g/dL (32-36); Mean Corpuscular Hgb 26.4 pg (27.0-32.0); Mean Corpuscular Volume 93.5 fL (80-94); Mean Platelet Vol. 10.6 fl (6.2-12.0); Monocyte# 1.11 X10^3/uL; NRBC Flagged by Analyzer 0 % (0-5); Neutrophil % 73.5 % (47-70); POSITIVE MORPHOLOGY YES; Platelet Count 222 K/mm3 (150-450); RBC Distribution Width CV 19.2 % (11.6-14.6); RBC Distribution Width SD 65.9 fl (35.1-43.9); Red Blood Count 2.46 M/mm3 (4.6-6.2); White Blood Count 13.9 K/mm3 (4.4-11.0)
[2023-04-20] MEDS: Acetaminophen 325 MG Tablet 650 MG PO (06:48)
[2023-04-20] MEDS: Levothyroxine 75 MCG Tablet PO (06:49)
[2023-04-20 07:06] LABS: ALB/GLOB Ratio 0.5 RATIO (0.9-2.4); AST(SGOT) 17 U/L (15-37); Alanine Aminotransfer ALT/SGPT 11 U/L (16-61); Alkaline Phosphatase 274 U/L (45-117); Anion Gap 10 (5-15); BUN 76 mg/dL (7-18); BUN/Creat Ratio 12.4 RATIO (10-20); Calcium,Total 7.8 mg/dL (8.5-10.1); Chloride 105 mmol/L (98-107); Creatinine, Serum 6.13 mg/dL (0.70-1.30); EST Glomerular Filtration Rate 12 mL/min (>60); Est Glom Filt Rate - Afr Amer 14 mL/min (>60); Estimated Creatinine Clearance 13.73 ml/min; Globulin 4.3 g/dL (2.2-4.2); Glucose 72 mg/dL (74-106); Magnesium 2.4 mg/dL (1.6-2.6); Potassium 5.4 mmol/L (3.5-5.1); Protein, Total 6.3 g/dL (6.4-8.2); Sodium Level 142 mmol/L (136-145); Thyroid Stim Hormone (TSH) 3.39 uIU/mL (0.358-3.74)
--- NOTE | 2023-04-20 07:31 | PN.HOSP_ITS ---
Reason for Visit Reason for Visit: Diagnoses Elevated white blood cell count, unspecified (04/19/23) Acute bronchitis, unspecified (04/19/23) Other abnormalities of breathing (04/19/23) Diarrhea, unspecified (04/19/23) Subjective Subjective Patient is a 27-year-old gentleman with history of spina bifida, end-stage renal disease on hemodialysis, history of right-sided nephrostomy tube, chronic sacral decubitus paraplegia who presented with 2-day history of low-grade fever congestion on cough.CT chest: Mild bilateral atelectasis otherwise no acute cardiac pulmonary disease. Admitted to regular nursing floor for further management Objective Data Objective Data Vital Signs: Vital Signs Temp Pulse Resp BP Pulse Ox O2 Del Method O2 Flow Rate 100.2 F H 103 H 20 H 87/47 L 96 Nasal Cannula 2 04/20/23 06:16 04/20/23 06:16 04/20/23 06:16 04/20/23 06:16 04/20/23 06:16 04/20/23 06:25 04/20/23 06:25 FiO2 2 04/19/23 23:24 Oxygen Flow Rate (L/min) 2 Oxygen Delivery Method Nasal Cannula Weight: 109.9 kg Body Mass Index (BMI) 44.3 Intake & Output: Intake and Output for Last 24 Hours 04/18/23 04/19/23 04/20/23 23:59 23:59 23:59 Intake Total 1000 / 1000 Output Total 100 / 100 Balance 1000 / 1000 -100 / -100 Lab / Micro Data 04/20/23 06:01 04/20/23 06:01 Labs: Laboratory Results - last 24 hr 04/19/23 19:50: WBC 16.8 H, RBC 2.67 L, Hgb 7.5 L, Hct 25.2 L, MCV 94.4 H, MCH 28.1, MCHC 29.8 L, RDW Std Deviation 67.3 H, RDW Coeff of Francisco 19.5 H, Plt Count 246, MPV 10.6, Immature Gran % (Auto) 0.500, Neut % (Auto) 78.0 H, Lymph % (Auto) 10.2 L, [place] % (Auto) 9.4, Eos % (Auto) 1.2, Baso % (Auto) 0.7, Absolute Neuts (auto) 13.1 H, Absolute Lymphs (auto) 1.71, Nucleated RBC % 0, Differential Comment SEE COMMENT, Diff Path Review May foll, Platelet Estimate ADEQUATE, RBC Morphology N CHROM, Hypochromasia 1+, Anisocytosis 1+, Macrocytosis 1+, PT 18.0 H, INR 1.5, APTT 35.3, Sodium 138, Potassium 4.5, Chloride 104, Carbon Dioxide 28.0, Anion Gap 6, BUN 70 H, Creatinine 5.77 H, Est GFR (MDRD) Af Amer 15 L, Est GFR (MDRD) Non-Af 12 L, BUN/Creatinine Ratio 12.1, Glucose 116 H, Calcium 8.7, Total Bilirubin 0.80, AST 14 L, ALT 14 L, Alkaline Phosphatase 300 H, Total Protein 6.8, Albumin 2.1 L, Globulin 4.7 H, Albumin/Globulin Ratio 0.4 L 04/19/23 20:54: Lactic Acid 1.9 04/20/23 06:01: Sodium 142, Potassium 5.4 H, Chloride 105, Carbon Dioxide 27.0, Anion Gap 10, BUN 76 H, Creatinine 6.13 H, Estim Creat Clear Calc 13.73, Est GFR (MDRD) Af Amer 14 L, Est GFR (MDRD) Non-Af 12 L, BUN/Creatinine Ratio 12.4, Glucose 72 L, Calcium 7.8 L, Magnesium 2.4, Total Bilirubin 0.80, AST 17, ALT 11 L, Alkaline Phosphatase 274 H, Total Protein 6.3 L, Albumin 2.0 L, Globulin 4.3 H, Albumin/Globulin Ratio 0.5 L, TSH 3.39 Micro: Microbiology 04/19/23 18:55 Nasal Secretion SARS-CoV-2 & FLU Antigen (Rapid) - Final Radiography Diagnostic Testing: Radiology Impression Chest X-Ray 04/19/23 20:23 IMPRESSION: No acute interval change. Electronically Signed: Taylor Bustamante MD at 20:46 EST , Chest/Abdomen/Pelvis CT 04/19/23 21:48 IMPRESSION: CT chest: Mild bilateral atelectasis otherwise no acute cardiac pulmonary disease. Status post right nephrostomy with mild hydronephrosis. Small stones within the right kidney, unchanged. No bowel obstruction or focal inflammatory process throughout the gastrointestinal tract, findings stable in the interval. Artifact versus trace ascites surrounding the liver, unchanged. Electronically Signed: Taylor Bustamante MD at 22:47 EST , Physical Exam Narrative GENERAL: cooperative HEENT: Atraumatic; normocephalic EYES; Anicteric, Normal Conjunctiva NECK; supple, normal thyroid, RESPIRATORY: Diminished to auscultation CARDIOVASCULAR: Regular S1 S2, GI: soft, normoactive bowel sounds, : Right-sided nephrostomy tube EXTREMITIES: Contractures, MUSCULOSKELETAL: no muscle wasting NEURO: Awake; oriented to place and person SKIN: No Rash PSYCH; Flat affect Assessment & Plan Assessment/Plan (1) Acute bronchitis: QUALIFIERS: Bronchitis organism: unspecified organism Qualified Code(s): J20.9 - Acute bronchitis, unspecified (2) Acute respiratory insufficiency: (3) Leukocytosis: QUALIFIERS: Leukocytosis type: unspecified Qualified Code(s): D72.829 - Elevated white blood cell count, unspecified (4) Diarrhea: QUALIFIERS: Diarrhea type: presumed infectious Qualified Code(s): R19.7 - Diarrhea, unspecified PLAN: Plan Patient is a 27-year-old gentleman with history of spina bifida, end-stage renal disease on hemodialysis, history of right-sided nephrostomy tube, chronic sacral decubitus paraplegia who presented with 2-day history of low-grade fever congestion on cough.CT chest: Mild bilateral atelectasis otherwise no acute cardiac pulmonary disease. Admitted to regular nursing floor for further management 1. Acute febrile illness ? To be secondary to bronchitis. CT did not show pneumonia did demonstrate bilateral atelectasis. Patient was started on doxycycline cultures sent 2. Acute hypoxia ? Secondary to above placed on supplemental oxygen 3. Diarrhea ? Stool for C. difficile signs 4. History of nephrostomy tube placement ? Recent admission here for right renal calculus with UTI and sepsis; patient was transferred to [facility] for placement/exchange of nephrostomy tube. CT this admission is showing no signs of acute infection or obstruction.Patient nephrostomy site had lot of discharge, consulted wound care nurse for dressing changes 5. Severe anemia ? Secondary to anemia secondary to ESRD , an order was given for patient to be transfused with 1 unit PRBC. Post posttransfusion H&H ordered 6. Spina bifida ? With paraplegia?continue supportive care 7. Chronic stage III decubitus ulcer ? Present on admission consult placed wound care nurse 8. 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 Chronic orthostatic hypotension ? Patient is on midodrine and hydrocortisone 10. Hypothyroidism - Patient is on levothyroxine home dose continued 11. Depression with anxiety ? Patient is on SSRI continue 12. DVT prophylaxis ? Patient was started on heparin on admission discontinued given significant decrease in his hemoglobin level Time spent in the patient's overall evaluation,decision-making process, review of diagnostic data, adjustment of management, discussion with other providers, nursing nursing and ancillary staff involved in patient's care documentation, 50 Minutes Charges/Coding Visit Charges Inpatient E&M: 70856 [facility] Hosp L3
[2023-04-20] MEDS: Midodrine HCl 5 MG Tablet 10 MG PO (07:39)
[2023-04-20 07:45] LABS: Differential Comment SCANNED; Differential Indicated SCAN CRITERIA MET; Hypochromasia 2+; Polychromasia RARE
[2023-04-20 07:46] LABS: Anisocytosis 2+; Macrocytosis 1+; Microcytosis 1+
--- NOTE | 2023-04-20 09:05 | WOUNDNOTE ---
wound photo: right buttock/ischium
--- NOTE | 2023-04-20 09:05 | WOUNDNOTE ---
nephrostomy tube dressing on admission
--- NOTE | 2023-04-20 09:06 | WOUNDNOTE ---
wound photo: left ischium
--- NOTE | 2023-04-20 09:18 | WOUNDNOTE ---
Pt states he had a new nephrostomy tube placed approx 4 weeks ago at [place]. the tube in located in the right lower abdomen d/t patient's body habitus. there was a large amount of thick nelson drainage noted to the dressing and surrounding skin. no redness noted at the insertion site. dressing removed. cleansed skin with soap and water. pat dry. applied a new split gauze followed by a 4x4 gauze. secured dressing with Medipore tape. pt tolerated well.
[2023-04-20] MEDS: Ferrous Gluconate 324 MG Tablet PO ×2 (09:59→17:09)
[2023-04-20] MEDS: Hydrocortisone 10 MG Tablet 15 MG PO (10:00)
[2023-04-20] MEDS: Sertraline 50 MG Tablet 25 MG PO (10:00)
[2023-04-20] MEDS: Gabapentin 100 MG Capsule PO (10:00)
[2023-04-20] MEDS: SEVELAMER CARBONATE 800 MG TABLET PO (10:00)
[2023-04-20] MEDS: Doxycycline 100 MG in Dextrose 5%-Water (250mL Bag) 250 ML 250 MG IV ×2 (10:00→22:00)
[2023-04-20] MEDS: PureFlow B 2K Dialysis Soln 1 BAG 6 BAG PF (11:56)
[2023-04-20] MEDS: 0.9% Normal Saline 1,000 ML IV.SOLN. 1000 ML OPERA.SITE (11:56)
--- NOTE | 2023-04-20 12:08 | CASEMGMT ---
NATHALIA PETERSON Assessment: Face to Face with pt for initial transition planning/care coordination assessment. NATHALIA PETERSON introduced self and role at [facility], pt voices understanding and consents to assessment. Pt is A&O x4 and answers all questions appropriately at this time. Pt sitting up in bed receiving dialysis. Care providers, pharmacy, and demographics verified/updated. Admitting Dx: acute bronchitis with acute hypoxic respiratory PCP:Nick Specialists:Manda, cardio; Justin, uro; Herb, nephro; Mega, pulm; Xavi at [facility] Preferred Pharmacy: [facility] Insurance: [employer] MAR[employer] Prescription Benefit: yes LNOK: Victor M and Maida Hammond, parents Living Arrangements: Pt lives with parents and 2 siblings in a two story home with a ramp to enter. Pt reports his parents does all ADL/IADL's. Pt denies concerns at home. Transportation: Parents provide transportation for pt. DME:[employer], oxygen through [employer], pt states he is only using PRN and has a portable tank that his parents can bring in upon dc, ceiling track lift system, hospital bed with pressure relieving mattress, power w/c, lift chair, wound care supplies and nephrostomy supplies HHC/SNF: Pt states he is not sure if he is active with [facility] or if he has been dc'd because he was hospitalized. Also has had [facility] HHC in the past. Pt has been to [facility] and [facility]. Pt states no concerns with going home at time of dc. Pt would like [facility] to be involved in his care again. Pt states his parents change his dressings to his wounds 1-2x/day. Pt states they are doing dialysis at home Wed- Wed with talks of taking Wednesdays off for medical appts. DC engineer first assistant will send referral to [facility] to confirm if pt is active or not. Pt states no further concerns/needs. CM to follow. Advised pt to ask CM if any further question/concerns/needs arise, voices understanding. Pt states his parents will be in this evening and they may have questions. Wrote name and extension on white board in pt room. Pt Goal: Home with [facility] HHC and parents caring for pt as prior Plan: Home with [facility] H[facility] and parents caring for pt as prior, pending acceptance or resumption from [facility]
--- NOTE | 2023-04-20 12:34 | CASEMGMT ---
Received confirmation that pt was to be started with [facility] today, C order entered for new SOC. They are willing to accept pt.
--- NOTE | 2023-04-20 12:40 | CASEMGMT ---
Addendum entered by Kiera Miranda 04/21/23 15:49: Discharge Planning [facility] updated via [facility] that patient is being transferred to [facility]. Kiera Miranda, Discharge Planning Asst. Original Note: Discharge Planning HH referral sent to [facility] via [facility]. Kiera Miranda, Discharge Planning Asst.
[2023-04-20] MEDS: 0.9% Saline Lock 10 ML Syringe IV (21:58)
[2023-04-20] MEDS: Hydrocortisone 10 MG Tablet PO (22:03)
[2023-04-21] VITALS (21 sets, daily range): BP systolic 74–274; BP diastolic 37–60; PULSE 69–85; RESP 14–18; TEMP 36.6–37.3; O2SAT 85–100; BMI 43.7; BMI 43.2
[2023-04-21] MEDS: Midodrine HCl 5 MG Tablet 10 MG PO ×3 (00:22→23:02)
[2023-04-21] MEDS: Levothyroxine 75 MCG Tablet PO (06:05)
[2023-04-21 06:42] LABS: Absolute Lymphocyte Count 1.23 X10^3/uL (0.83-4.51); Absolute Neutrophil Count 9.4 X10^3/uL (2.0-7.7); Basophil# 0.09 X10^3/uL; Basophil% 0.8 % (0-1); Eosinophil# 0.26 X10^3/uL; Eosinophils% 2.2 % (0-5); Hematocrit 25.2 % (40-54); Hemoglobin 7.5 g/dL (13.0-16.5); Lymphocyte # 1.23 X10^3/ul (0.83-4.51); Lymphocyte % 10.3 % (19-41); Mean Corp Hgb Conc 29.8 g/dL (32-36); Mean Corpuscular Volume 90.6 fL (80-94); Mean Platelet Vol. 10.5 fl (6.2-12.0); Monocyte# 0.93 X10^3/uL; Monocyte% 7.8 % (0-10); NRBC Flagged by Analyzer 0 % (0-5); Neutrophil # 9.36 X10^3/uL (2.7-7.7); Neutrophil % 78.3 % (47-70); POSITIVE MORPHOLOGY YES; Platelet Count 221 K/mm3 (150-450); RBC Distribution Width CV 20.5 % (11.6-14.6); RBC Distribution Width SD 67.6 fl (35.1-43.9); Red Blood Count 2.78 M/mm3 (4.6-6.2); White Blood Count 11.9 K/mm3 (4.4-11.0)
[2023-04-21 06:57] LABS: Differential Indicated SCAN CRITERIA MET
[2023-04-21 07:10] LABS: Anion Gap 6 (5-15); BUN 54 mg/dL (7-18); BUN/Creat Ratio 11.7 RATIO (10-20); Calcium,Total 8.5 mg/dL (8.5-10.1); Chloride 102 mmol/L (98-107); Creatinine, Serum 4.61 mg/dL (0.70-1.30); EST Glomerular Filtration Rate 16 mL/min (>60); Est Glom Filt Rate - Afr Amer 19 mL/min (>60); Estimated Creatinine Clearance 18.26 ml/min; Glucose 69 mg/dL (74-106); Magnesium 2.2 mg/dL (1.6-2.6); Phosphorus 5.4 mg/dL (2.5-4.9); Potassium 4.9 mmol/L (3.5-5.1); Sodium Level 136 mmol/L (136-145)
[2023-04-21 08:06] LABS: Anisocytosis 1+
[2023-04-21] MEDS: Sertraline 50 MG Tablet 25 MG PO (08:39)
[2023-04-21] MEDS: Hydrocortisone 10 MG Tablet 15 MG PO (08:39)
[2023-04-21] MEDS: Gabapentin 100 MG Capsule PO (08:39)
[2023-04-21] MEDS: Ferrous Gluconate 324 MG Tablet PO ×2 (08:39→16:19)
[2023-04-21] MEDS: SEVELAMER CARBONATE 800 MG TABLET PO ×3 (08:39→16:19)
[2023-04-21] MEDS: Doxycycline 100 MG in Dextrose 5%-Water (250mL Bag) 250 ML 250 MG IV (10:24)
[2023-04-21] MEDS: 0.9% Saline Lock 10 ML Syringe IV ×2 (10:24→16:19)
[2023-04-21 10:58] LABS: Pathologist Review Reviewed
--- NOTE | 2023-04-21 12:22 | SP.MBSS_ITS ---
Modified Barium Swallow Patient Information Study Date: 04/21/23 Study Time: 09:00 Direct Billable Minutes: 130 Total Minutes procedure & reportin Diagnosis: Acute respiratory insufficiency R06.89; URI J06.9 Referring Physician: Victor M Bernstein Reason for Referral: Objectively assess swallow function, assess risk for aspiration, and determine recommendations for least restrictive diet textures and compensatory strategies to improve safety of swallow. Medical History: The patient is a 27-year-old male with significant PMH below who presented to [facility] ED 04/19/23 with SOB, low-grade fever, congestion, and cough. He is now admitted to [facility] for management of acute bronchitis with acute hypoxic respiratory insufficiency and leukocytosis. BSE 04/20/2023 recommended NPO prior to MBSS due to SOB with oral intake, s/s of aspiration with oral intake, and decline in SpO2 1X with trials of thin water. Patient reports history of dysphagia s/p intubation for sepsis secondary to UTI in January 2022. Patient required a tracheostomy. He has participated in at least 2 FEES ([facility] and [facility]), which he originally failed, but then was placed on a modified diet with thin liquids. After continued participation in dysphagia therapy, he was advanced to a regular diet with thin liquids. His trach was removed in August of 2022. PMH: ESRD on hemodialysis, history of renal calculi; status post right nephrostomy tube with recent admission for UTI and sepsis, chronic stage III sacral decubitus ulcer; secondary to spina bifida with paraplegia with patient mobilizing in wheelchair and status post ileostomy, history of MRSA/MDRO, history of BREAD BAKER shunt, chronic right-sided systolic CHF, hypothyroidism, morbid obesity, SOPHIA, secondary pulmonary arterial HTN, iron deficiency anemia, history of orthostatic hypotension; on midodrine, depression with anxiety and numerous antibiotic allergies (ampicillin, daptomycin, Merrem, Unasyn and vancomycin) in addition to allergies to both morphine and fentanyl. Current Diet Ordered: NPO with sips and chips supervised Dentition: Natural Teeth Mental Status: WNL Respiratory Status: Oxygenating on 2L/M nasal cannula Penetration-Aspiration Scale Penetration-Aspiration Scale: OBJECTIVE ASSESSMENT OF SWALLOW FUNCTION (QUANTITATIVE ? PER TRIAL): PENETRATION / ASPIRATION SCALE (DESIR): 1 = does not enter airway 2 = enters airway/above vocal folds/ejected 3 = enters airway/above vocal folds/not ejected 4 = enters airway/contacts vocal folds/ejected 5 = enters airway/contacts vocal folds/not ejected 6 = enters airway/below vocal folds/ejected 7 = enters airway/below vocal folds/not ejected despite effort 8 = enters airway/below vocal folds/no effort VIDEOFLOROSCOPIC SCALE SCORE (DESIR): Grade I = aspiration of material that has penetrated into the laryngeal vestibule, intact cough reflex Grade II = aspiration < 10 % of the bolus, intact cough reflex Grade III = aspiration of < 10 % of the bolus, reduced cough reflex or aspiration of > 10 % of the bolus, intact cough reflex Grade IV = aspiration of > 10 % of the bolus, reduced cough reflex Penetration-Aspiration Scale Score Thin Liquid via teaspoon: Result: 1= does not enter airway Thin Liquid via teaspoon Trial 2: Result: 1= does not enter airway Thin Liquid via large single sip: cup: Result: 1= does not enter airway [place] Thick Liquid via large single sip: cup: Result: 1= does not enter airway Pudding via teaspoon: Result: 1= does not enter airway Thin Liquid via single sip: straw: Result: 2= enter airway/above vocal folds/ejected 1/2 Cookie: Result: 1= does not enter airway Thin Liquid via sequential sips:straw: Result: 1= does not enter airway Oral Phase Labial Seal: No Labial Escape Tongue Control During Bolus Hold: Posterior escape of less than half of bolus Bolus Preparation/Mastication: Timely and efficient chewing and mashing Bolus Transport/Lingual Motion: Delayed initiation of tongue motion Oral Residue: Residue collection on oral structures Pharyngeal Phase Initiation of Pharyngeal Swallow: Bolus head in pyriforms Soft Palate Elevation: No bolus between soft palate and pharyngeal wall Laryngeal Elevation: Comp. Superior move thyroid cart w/comp. apprx arytenoid cart-epig pet Anterior Hyoid Excursion: Partial anterior movement (little to no anterior movement) Epiglottic Movement: Complete inversion Laryngeal Vestibule Closure at Height of Swallow: Incomplete; narrow column of air/contrast in laryngeal vestibule (trace laryngeal penetration with full ejection) Pharyngeal Stripping Wave: Present - complete (for superior and medial pharyngeal constrictor - unable to view inferior) Tongue Base Retraction: Trace column of contrast between tongue base & post. pharyngeal wall Pharyngeal Residue: Trace residue within or on pharyngeal structures Diagnosis/Impression Diagnosis: Mild oropharyngeal dysphagia R13.12 Impression: C-arm was used due to patient's body habitus. For all the above mentioned trials, CLINICAL DOCUMENTATION CONSULTANT could not definitively rule out aspiration due to limited view of the pharynx/larynx given patient's stature. Of note, today's trials with CLINICAL DOCUMENTATION CONSULTANT were consumed with no overt s/s of aspiration or changes in breathing. Patient denied shortness of breath after trials. The oral phase is primarily marked by... ->1/2 of the bolus spilling posteriorly to the posterior surface of the epiglottis prior to swallow onset observed with thin liquids especially. -Delayed tongue motion for A-P transport. -Piecemeal deglutition of cookie. The pharyngeal phase is primarily marked by... -Poor anterior hyoid excursion; however, patient appeared to have complete laryngeal elevation - although view of pharynx/larynx is somewhat limited due to patient's body habitus. -Trace laryngeal penetration of sequential sips of thin liquids via straw with complete ejection. No aspiration observed. Recommendations Diet: Regular Textures and Thin Liquids Comment: STOP meal if increased s/s of aspiration and resume meal at a later time Compensatory Strategies: Small Bites, Small Sips, Slow Rate, Alternate bites/solids and sips/liquids, Sitting upright and Remain sitting upright for 30 minutes after PO intake Recommend Repeat Modified Barium Swallow: No Need for Skilled Speech Therapy Services: Yes Comment: Follow 2-3X during acute stay to ensure diet tolerance and monitor respiratory status due to limited views of pharynx/larynx obtained during MBSS. Will recommend maintenance oropharyngeal exercise program given recent history of dysphagia ([place], CTAR, Effortful breath hold and swallow). If further concerns for aspiration in upcoming sessions, please consider use of Fiberoptic Endoscopic Evaluation of Swallowing (FEES) to re-assess swallow function and aspiration risk. Recommended Referrals: GI Consult (OP GI consult due to complaints of frequent belching with oral intake. CLINICAL DOCUMENTATION CONSULTANT unable to complete esophageal screen due to use of C-arm for study.) Education Completed: 1. Described result of evaluation. and 2. Pt understands evaluation & agrees with goals and treatment plan. Status Active ST Patient: Active Contact Information [facility] Speech Therapy:: Noelle Arroyo M.A. [facility]-CLINICAL DOCUMENTATION CONSULTANT Speech-Language Pathologist [facility] [address] [place] [address] [email or web address] [phone]
[2023-04-21] MEDS: PureFlow B 2K Dialysis Soln 1 BAG 6 BAG PF (13:13)
[2023-04-21] MEDS: 0.9% Normal Saline 1,000 ML IV.SOLN. 1000 ML OPERA.SITE (13:13)
--- NOTE | 2023-04-21 15:13 | PCM.PN.REN ---
Subjective Subjective Seen and examined during dialysis today. Tolerating treatment well. No complaints. Objective Data Objective Data Vital Signs: Vital Signs Temp Pulse Resp BP Pulse Ox O2 Del Method O2 Flow Rate 97.9 F 73 14 100/56 L 97 Nasal Cannula 2 04/21/23 11:36 04/21/23 14:53 04/21/23 14:53 04/21/23 14:53 04/21/23 12:45 04/21/23 14:53 04/21/23 14:53 FiO2 2 04/19/23 23:24 Oxygen Flow Rate (L/min) 2 Oxygen Delivery Method Nasal Cannula Weight: 107.7 kg Body Mass Index (BMI) 43.7 Intake & Output: Intake and Output for Last 24 Hours 04/19/23 04/20/23 04/21/23 23:59 23:59 23:59 Intake Total 1000 / 1000 580 / 580 267.5 / 267.5 Output Total 2200 / 2200 0 / 0 Balance 1000 / 1000 -1620 / -1620 267.5 / 267.5 Lab / Micro Data 04/21/23 06:13 04/21/23 06:13 Labs: Laboratory Results - last 24 hr 04/19/23 19:50: Diff Path Review Reviewed 04/20/23 10:50: Blood Type A POSITIVE, Antibody Screen NEGATIVE, Crossmatch See Detail 04/21/23 06:13: WBC 11.9 H, RBC 2.78 L, Hgb 7.5 L, Hct 25.2 L, MCV 90.6, MCH 27.0, MCHC 29.8 L D, RDW Std Deviation 67.6 H, RDW Coeff of Francisco 20.5 H, Plt Count 221, MPV 10.5, Immature Gran % (Auto) 0.600, Neut % (Auto) 78.3 H, Lymph % (Auto) 10.3 L, [place] % (Auto) 7.8, Eos % (Auto) 2.2, Baso % (Auto) 0.8, Absolute Neuts (auto) 9.4 H, Absolute Lymphs (auto) 1.23, Nucleated RBC % 0, Anisocytosis 1+, Sodium 136, Potassium 4.9, Chloride 102, Carbon Dioxide 28.0, Anion Gap 6, BUN 54 H, Creatinine 4.61 H, Estim Creat Clear Calc 18.26, Est GFR (MDRD) Af Amer 19 L, Est GFR (MDRD) Non-Af 16 L, BUN/Creatinine Ratio 11.7, Glucose 69 L, Calcium 8.5, Phosphorus 5.4 H, Magnesium 2.2 Micro: Microbiology 04/21/23 09:40 Stool Stool Lactoferrin - Final 04/19/23 20:32 Mucosa - Nasopharyngeal Respiratory Panel (PCR) - Final 04/19/23 18:55 Nasal Secretion SARS-CoV-2 & FLU Antigen (Rapid) - Final Physical Exam Narrative Alert and orient x 3, no apparent distress S1, S2, RRR Lung sounds clear Abdomen soft, nontender No edema AV fistula left forearm positive thrill and bruit; accessed for hemodialysis Assessment & Plan Assessment/Plan (1) ESRD (end stage renal disease): (2) Anemia of chronic disease: (3) Leukocytosis: QUALIFIERS: Leukocytosis type: unspecified Qualified Code(s): D72.829 - Elevated white blood cell count, unspecified PLAN: Plan - ESRD on home hemodialysis Wednesday through Wednesday schedule. Patient tolerated dialysis yesterday, for dialysis again today with around 2 L fluid removal. Likely next dialysis will be Wednesday unless acute need arises -Anemia of chronic disease status post PRBC. Patient to receive CRISTIANO with dialysis today. Hemoglobin improved 7.5 -Leukocytosis with drainage around nephrostomy tube. Considering transfer to tertiary center. Blood cultures pending. Patient is on IV antibiotics, cefepime -History of intradialytic hypotension on midodrine. Continue midodrine -Discussed nephrology plan with Dr. Mclean
[2023-04-21] MEDS: Epoetin Alfa epbx 10,000 UNITS/ML 20000 UNIT IV (15:29)
--- NOTE | 2023-04-21 15:42 | PCM.PN.HOSP ---
Reason for Visit Reason for Visit: Diagnoses Diarrhea, unspecified (04/19/23) Subjective Subjective Patient was seen and examined today, I talked with the wound care nurse and it appears patient has purulent drainage coming from around his nephrostomy site, it was recommended that this tube be changed, also patient is no longer complaining of any upper respiratory symptoms, I have elected to take him off doxycycline and place him on cefepime for the infected nephrostomy site. Since the tube cannot be replaced here (radiology states that they recommend patient be transferred to another facility for changing of the tube-the tube was placed at [place]), I have made steps to have the patient transferred to [facility], he has been accepted at this point but we have yet to find out about the availability of a bed. Modified barium swallow was performed today, speech therapy feels that the patient has mild oropharyngeal dysphagia, regular textures and thin liquids were recommended. Objective Data Objective Data Vital Signs: Vital Signs Temp Pulse Resp BP Pulse Ox O2 Del Method O2 Flow Rate 97.9 F 69 14 102/56 L 97 Nasal Cannula 2 04/21/23 11:36 04/21/23 15:21 04/21/23 15:21 04/21/23 15:21 04/21/23 12:45 04/21/23 15:21 04/21/23 15:21 FiO2 2 04/19/23 23:24 Oxygen Flow Rate (L/min) 2 Oxygen Delivery Method Nasal Cannula Weight: 107.7 kg Body Mass Index (BMI) 43.7 Intake & Output: Intake and Output for Last 24 Hours 04/19/23 04/20/23 04/21/23 23:59 23:59 23:59 Intake Total 1000 / 1000 580 / 580 267.5 / 267.5 Output Total 2200 / 2200 0 / 0 Balance 1000 / 1000 -1620 / -1620 267.5 / 267.5 Lab / Micro Data 04/21/23 06:13 04/21/23 06:13 Labs: Laboratory Results - last 24 hr 04/19/23 19:50: Diff Path Review Reviewed 04/20/23 10:50: Blood Type A POSITIVE, Antibody Screen NEGATIVE, Crossmatch See Detail 04/21/23 06:13: WBC 11.9 H, RBC 2.78 L, Hgb 7.5 L, Hct 25.2 L, MCV 90.6, MCH 27.0, MCHC 29.8 L D, RDW Std Deviation 67.6 H, RDW Coeff of Francisco 20.5 H, Plt Count 221, MPV 10.5, Immature Gran % (Auto) 0.600, Neut % (Auto) 78.3 H, Lymph % (Auto) 10.3 L, [place] % (Auto) 7.8, Eos % (Auto) 2.2, Baso % (Auto) 0.8, Absolute Neuts (auto) 9.4 H, Absolute Lymphs (auto) 1.23, Nucleated RBC % 0, Anisocytosis 1+, Sodium 136, Potassium 4.9, Chloride 102, Carbon Dioxide 28.0, Anion Gap 6, BUN 54 H, Creatinine 4.61 H, Estim Creat Clear Calc 18.26, Est GFR (MDRD) Af Amer 19 L, Est GFR (MDRD) Non-Af 16 L, BUN/Creatinine Ratio 11.7, Glucose 69 L, Calcium 8.5, Phosphorus 5.4 H, Magnesium 2.2 Micro: Microbiology 04/21/23 09:40 Stool Stool Lactoferrin - Final 04/19/23 20:32 Mucosa - Nasopharyngeal Respiratory Panel (PCR) - Final 04/19/23 18:55 Nasal Secretion SARS-CoV-2 & FLU Antigen (Rapid) - Final Physical Exam Const alert, oriented x3 and no apparent distress Constitutional Narrative: Patient exhibits structural deformity secondary to his spinal bifida General Appearance: cooperative, well kempt and well developed Orientation / Consciousness: awake, oriented to person, oriented to place and oriented to time HEENT normocephalic and moist oral mucous membranes Eyes PERRL, EOMs intact bilaterally and conjunctivae normal Neck supple, no JVD, thyroid normal and no carotid bruits General: trachea midline Resp normal respiratory effort, no retractions, no use of accessory muscles and clear to auscultation bilaterally Auscultation: Negative for rales, rhonchi or wheezes Cardio regular rate, regular rhythm, S1 normal heart sound, S2 normal heart sound, no murmurs, no rub and no gallops GI normal to inspection, nondistended, normoactive bowel sounds, soft to palpation, non-tender and non-distended GI Narrative: There is a nephrostomy tube located in the mid lateral abdomen Extremity Extremity Narrative: Generalized atrophy is noted in the lower extremities Skin no rashes or lesions noted General Skin Exam: no breakdown Neuro oriented x3 and CN's II-XII intact bilaterally Neuro Narrative: Patient has paraplegia Sensorium / Orientation: awake and alert Speech: speech normal Psych affect normal Assessment & Plan Assessment/Plan (1) ESRD (end stage renal disease): PLAN: Plan 1. Infected nephrostomy tube site-patient's antibiotic was changed to cefepime today, again arrangements are being made for the patient to be transferred for nephrostomy tube replacement at [facility] #2 end-stage renal disease-patient will be dialyzed today #3 hypoxia-etiology unclear, probably secondary to atelectasis, monitor pulse ox and adjust oxygen accordingly #4 spina bifida with paraplegia-complicates care, medical course, recovery, and prognosis #5 chronic respiratory failure with hypoxia and hypercapnia-patient requires use of BiPAP at night #6 secondary pulmonary arterial hypertension Total clinical time spent by myself addressing the patient's medical issues, reviewing all of his data, and collaborating with patient's care team: 35 minutes Charges/Coding Visit Charges Inpatient E&M: 24478 Subs Hosp L2
[2023-04-21] MEDS: Cefepime HCl 1 GM in 0.9% Normal Saline (50mL MB+) 50 ML IV (16:19)
[2023-04-21] MEDS: traZODone 100 MG Tablet PO (22:58)
[2023-04-21] MEDS: Hydrocortisone 10 MG Tablet PO (22:58)
[2023-04-22] VITALS (7 sets, daily range): BP systolic 88–98; BP diastolic 44–57; PULSE 79–91; RESP 12–24; TEMP 37.2–37.3; O2SAT 94–99; BMI 43.6
[2023-04-22] MEDS: Midodrine HCl 5 MG Tablet 10 MG PO (05:47)
[2023-04-22] MEDS: Levothyroxine 75 MCG Tablet PO (05:47)
[2023-04-22 07:53] LABS: Absolute Lymphocyte Count 1.05 X10^3/uL (0.83-4.51); Absolute Neutrophil Count 6.6 X10^3/uL (2.0-7.7); Basophil# 0.06 X10^3/uL; Basophil% 0.7 % (0-1); Eosinophil# 0.37 X10^3/uL; Eosinophils% 4.2 % (0-5); Hematocrit 25.9 % (40-54); Hemoglobin 7.5 g/dL (13.0-16.5); Lymphocyte # 1.05 X10^3/ul (0.83-4.51); Lymphocyte % 11.9 % (19-41); Mean Corpuscular Hgb 26.1 pg (27.0-32.0); Mean Corpuscular Volume 90.2 fL (80-94); Mean Platelet Vol. 10.6 fl (6.2-12.0); Monocyte% 7.9 % (0-10); NRBC Flagged by Analyzer 0 % (0-5); Neutrophil # 6.59 X10^3/uL (2.7-7.7); Neutrophil % 74.5 % (47-70); POSITIVE MORPHOLOGY YES; Platelet Count 249 K/mm3 (150-450); RBC Distribution Width CV 20.2 % (11.6-14.6); RBC Distribution Width SD 66.5 fl (35.1-43.9); Red Blood Count 2.87 M/mm3 (4.6-6.2); White Blood Count 8.8 K/mm3 (4.4-11.0)
[2023-04-22 08:00] LABS: Differential Indicated SCAN CRITERIA MET
[2023-04-22 08:06] LABS: Anion Gap 8 (5-15); BUN 41 mg/dL (7-18); BUN/Creat Ratio 10.2 RATIO (10-20); Calcium,Total 8.6 mg/dL (8.5-10.1); Chloride 103 mmol/L (98-107); EST Glomerular Filtration Rate 19 mL/min (>60); Est Glom Filt Rate - Afr Amer 23 mL/min (>60); Estimated Creatinine Clearance 21.04 ml/min; Glucose 108 mg/dL (74-106); Potassium 3.8 mmol/L (3.5-5.1); Sodium Level 139 mmol/L (136-145)
[2023-04-22] MEDS: Sertraline 50 MG Tablet 25 MG PO (08:15)
[2023-04-22] MEDS: Hydrocortisone 10 MG Tablet 15 MG PO (08:15)
[2023-04-22] MEDS: SEVELAMER CARBONATE 800 MG TABLET PO ×3 (08:16→17:05)
[2023-04-22] MEDS: Ferrous Gluconate 324 MG Tablet PO ×2 (08:16→17:04)
[2023-04-22] MEDS: Gabapentin 100 MG Capsule PO (08:19)
[2023-04-22 08:41] LABS: Anisocytosis 2+; Differential Comment SCANNED; Macrocytosis 1+; Microcytosis 1+
--- NOTE | 2023-04-22 10:57 | PCM.PN.HOSP ---
Reason for Visit Reason for Visit: Diagnoses End stage renal disease (04/19/23) Diarrhea, unspecified (04/19/23) Objective Data Objective Data Vital Signs: Vital Signs Temp Pulse Resp BP Pulse Ox O2 Del Method O2 Flow Rate 99.1 F 91 16 91/49 L 95 Nasal Cannula 2 04/22/23 10:20 04/22/23 10:20 04/22/23 10:20 04/22/23 10:20 04/22/23 10:20 04/22/23 10:20 04/22/23 10:20 FiO2 30 04/22/23 03:20 Oxygen Flow Rate (L/min) 2 Oxygen Delivery Method Nasal Cannula Weight: 237 lb 3.478 oz Body Mass Index (BMI) 43.6 Intake & Output: Intake and Output for Last 24 Hours 04/20/23 04/21/23 04/22/23 23:59 23:59 23:59 Intake Total 580 / 580 317.5 / 317.5 Output Total 2200 / 2200 1970 / 1970 0 / 0 Balance -1620 / -1620 -1652.5 / -1652.5 0 / 0 Lab / Micro Data 04/22/23 07:23 04/22/23 07:23 Labs: Laboratory Results - last 24 hr 04/19/23 19:50: Diff Path Review Reviewed 04/22/23 07:23: WBC 8.8, RBC 2.87 L, Hgb 7.5 L, Hct 25.9 L, MCV 90.2, MCH 26.1 L, MCHC 29.0 L, RDW Std Deviation 66.5 H, RDW Coeff of Francisco 20.2 H, Plt Count 249, MPV 10.6, Immature Gran % (Auto) 0.800, Neut % (Auto) 74.5 H, Lymph % (Auto) 11.9 L, [place] % (Auto) 7.9, Eos % (Auto) 4.2, Baso % (Auto) 0.7, Absolute Neuts (auto) 6.6, Absolute Lymphs (auto) 1.05, Nucleated RBC % 0, Differential Comment SCANNED, Anisocytosis 2+, Microcytosis 1+, Macrocytosis 1+, Sodium 139, Potassium 3.8, Chloride 103, Carbon Dioxide 28.0, Anion Gap 8, BUN 41 H, Creatinine 4.00 H, Estim Creat Clear Calc 21.04, Est GFR (MDRD) Af Amer 23 L, Est GFR (MDRD) Non-Af 19 L, BUN/Creatinine Ratio 10.2, Glucose 108 H, Calcium 8.6 Micro: Microbiology 04/19/23 20:54 Blood Culture (Wb) - Right Wrist Blood Culture - Preliminary No growth in 48 hours. 04/19/23 19:50 Blood Culture (Wb) - Right Forearm Blood Culture - Preliminary No growth in 48 hours. 04/21/23 09:40 Stool Stool Lactoferrin - Final 04/21/23 09:40 Stool Enteric Bacteriology - Final 04/19/23 20:32 Mucosa - Nasopharyngeal Respiratory Panel (PCR) - Final 04/19/23 18:55 Nasal Secretion SARS-CoV-2 & FLU Antigen (Rapid) - Final Physical Exam Narrative Seen and examined. Talk to the patient and his father over the phone. Patient stated he wants to go home on antibiotic. No acute symptoms. Patient is physically compromised with spina bifida and morbid obesity. Patient stated he also had hole in the bladder. Physical examination: General: Alert, Oriented x3, Cooperative HEENT: Atraumatic, PERRLA, EOMI, Normocephalic Oral: No Gingival or Mucosal Lesions/ Ulcerations Neck: Supple, No JVD, Negative Carotid Bruits Lungs: Air entry diminished in bilateral lung bases. No crepitation/rhonchi Cardiovascular: Regular rate, Regular Rhythm, Normal S1, Normal S2, No murmurs Abdomen: Large abdomen with fat. Large panniculus hanging over lower abdomen covering the perineum and upper thigh up to knee level. : Could not see suprapubic region or perineal region. Nephrostomy tube on right. No urine on the back. Small purulent/thick secretion in the tube Extremities: No edema, Capillary Refill Less than 3 Seconds Skin: Wound photo reviewed. Returns ulcer on the buttock region, mainly in the right buttock region. Musculoskeletal: Spinal by few to no Tenderness to Palpation of Joints or Extremities Neurological: Cranial nerves II-XII grossly intact, DTR 2+/4. Paraplegia. Nonambulatory. Psych/Mental Status: flat affect Assessment & Plan Assessment/Plan (1) ESRD (end stage renal disease): PLAN: Plan This1. Infected nephrostomy tube site-the patient does not have any urine to send for UA or culture. Patient nursing staff and send the nephrostomy tube secretions. ID consulted. His father wanted to discharge the patient go home and then see urologist for nephrostomy tube change as an outpatient in [facility]. Discussed with the ID. Patient is on home dialysis Wednesday to Wednesday. He recommended cefepime 1 g Wednesday to and 2 g on Wednesday. #2 end-stage renal disease-on dialysis regimen as per the motor and generator assembler. At home he is on home dialysis as mentioned above. #3 hypoxia-etiology unclear, probably secondary to atelectasis, monitor pulse ox and adjust oxygen accordingly. On 2 L of oxygen #4 spina bifida with paraplegia-complicates care, medical course, recovery, and prognosis #5 chronic respiratory failure with hypoxia and hypercapnia-patient requires use of BiPAP at night #6 secondary pulmonary arterial hypertension Charges/Coding Visit Charges Inpatient E&M: 86430 Subs Hosp L2
--- NOTE | 2023-04-22 11:07 | PN.RENAL_ITS ---
Subjective Subjective Sitting up in bed. No complaints. No overnight events Objective Data Objective Data Vital Signs: Vital Signs Temp Pulse Resp BP Pulse Ox O2 Del Method O2 Flow Rate 99.1 F 91 16 91/49 L 95 Nasal Cannula 2 04/22/23 10:20 04/22/23 10:20 04/22/23 10:20 04/22/23 10:20 04/22/23 10:20 04/22/23 10:20 04/22/23 10:20 FiO2 30 04/22/23 03:20 Oxygen Flow Rate (L/min) 2 Oxygen Delivery Method Nasal Cannula Weight: 107.6 kg Body Mass Index (BMI) 43.6 Intake & Output: Intake and Output for Last 24 Hours 04/20/23 04/21/23 04/22/23 23:59 23:59 23:59 Intake Total 580 / 580 317.5 / 317.5 Output Total 2200 / 2200 1969 / 1970 0 / 0 Balance -1620 / -1620 -1652.5 / -1652.5 0 / 0 Lab / Micro Data 04/22/23 07:23 04/22/23 07:23 Labs: Laboratory Results - last 24 hr 04/22/23 07:23: WBC 8.8, RBC 2.87 L, Hgb 7.5 L, Hct 25.9 L, MCV 90.2, MCH 26.1 L , MCHC 29.0 L, RDW Std Deviation 66.5 H, RDW Coeff of Francisco 20.2 H, Plt Count 249, MPV 10.6, Immature Gran % (Auto) 0.800, Neut % (Auto) 74.5 H, Lymph % (Auto) 11.9 L, [place] % (Auto) 7.9, Eos % (Auto) 4.2, Baso % (Auto) 0.7, Absolute Neuts (auto) 6.6, Absolute Lymphs (auto) 1.05, Nucleated RBC % 0, Differential Comment SCANNED, Anisocytosis 2+, Microcytosis 1+, Macrocytosis 1+, Sodium 139, Potassium 3.8, Chloride 103, Carbon Dioxide 28.0, Anion Gap 8, BUN 41 H, Creatinine 4.00 H, Estim Creat Clear Calc 21.04, Est GFR (MDRD) Af Amer 23 L, Est GFR (MDRD) Non-Af 19 L, BUN/Creatinine Ratio 10.2, Glucose 108 H, Calcium 8.6 Micro: Microbiology 04/19/23 20:54 Blood Culture (Wb) - Right Wrist Blood Culture - Preliminary No growth in 48 hours. 04/19/23 19:50 Blood Culture (Wb) - Right Forearm Blood Culture - Preliminary No growth in 48 hours. 04/21/23 09:40 Stool Stool Lactoferrin - Final 04/21/23 09:40 Stool Enteric Bacteriology - Final 04/19/23 20:32 Mucosa - Nasopharyngeal Respiratory Panel (PCR) - Final 04/19/23 18:55 Nasal Secretion SARS-CoV-2 & FLU Antigen (Rapid) - Final Physical Exam Narrative Alert and orient x 3, no apparent distress S1, S2, RRR Lung sounds clear Abdomen soft, nontender No edema AV fistula left forearm positive thrill and bruit Assessment & Plan Assessment/Plan (1) ESRD (end stage renal disease): (2) Anemia of chronic disease: (3) Leukocytosis: QUALIFIERS: Leukocytosis type: unspecified Qualified Code(s): D72.829 - Elevated white blood cell count, unspecified PLAN: Plan - ESRD on home hemodialysis Wednesday through Wednesday schedule. Patient tolerated dialysis yesterday. No acute indication for BASEBALL INSPECTOR today. Next dialysis for Wednesday. -Anemia of chronic disease status post PRBC. Patient received CRISTIANO with HD yesterday. Hemoglobin 7.5 again today. Will try and limit blood draws. -Leukocytosis with purulent drainage around nephrostomy tube. Considering transfer to [facility]. Blood cultures pending. White blood count trending down. Patient is on IV antibiotics, cefepime -History of intradialytic hypotension on midodrine. Continue midodrine -Discussed nephrology plan with Dr. Fajardo.
[2023-04-22] MEDS: Cefepime HCl 0.5 GM in 0.9% Normal Saline (50mL MB+) 50 ML IV (14:26)
[2023-04-22] MEDS: 0.9% Saline Lock 10 ML Syringe IV (14:28)
--- NOTE | 2023-04-22 15:15 | CASEMGMT ---
Hospitalist called and states pt will dc home with IV atb with dialysis. Made aware that currently pt is doing home dialysis 5 days per week. Hospitalist confirmed dose with ID and then asked for rx to be tubed to ER. Tubed at this time. NATHALIA PETERSON into pt room to discuss with pt. Pt on phone with father who states they have not decided if they will be transferring or going home to f/u as outpt. He states he is awaiting his options. Father then was getting a call from [facility] and asked to call back to pt. RN KRISTEN stepped out of room. 1600-RN KRISTEN back into pt room, pt father states if pt can be dc'd this date, he could have a procedure tomorrow as early as 10am as an outpt. Pt and father aware that IV atb could not be set up at this time for dc today yet. Pt father states pt needs to be trf'd then to [facility]. Pt is agreeable to this. Updated pt nurse and charge nurse who will update hospitalist.
--- NOTE | 2023-04-22 15:36 | CASEMGMT ---
Social Work SW met with pt to discuss advance directives. Pt's father on speaker phone participating in conversation.? Pt confirms he has completed a health care POA naming his father Victor M Hammond. Pt has not completed a living will. SW requested pt's father bring HCPOA to hospital for scanning into the EMR.? PAZ Stanford
--- NOTE | 2023-04-22 16:48 | DS.PCM_ITS ---
Providers Date of Admission: 04/19/23 Date of Discharge: 04/22/23 Primary Care Physician: Dr. Cameron Romero, Consultations 04/19/23 23:41 Consult: Nephrology Routine Consulting Provider: Amarjit Estevez Reason for Consult: End-stage renal disease on hemodialysis EMERGENT Consult: No MD Notified: Yes Date Notified: 04/20/23 Time Notified: 06:26 Method of Notification: Answering Service 04/20/23 00:05 Consult: Onc/Wound/circulation representative Routine Comment: Reason for Consult:: Chronic Stage III Sacral Decubitus Ulcer 04/22/23 12:51 Consult: Infectious Disease Routine Consulting Provider: Luis Amador Reason for Consult: LEUKOCYSTOSIS, INFECTED NEPHROSTOMY EMERGENT Consult: No Notified: Yes Date Notified: 04/22/23 Time Notified: 12:51 Method of Notification: Verbal Reason For Visit: ACUTE BRONCHITIS WITH ACUTE HYPOXIC RESPIRATORY Diagnosis Discharge Diagnosis (1) ESRD (end stage renal disease): Status: Acute Code(s): N18.6 - End stage renal disease Plan 27-year-old gentleman with multiple chronic comorbidities and spina bifid with buttock region sacral decubitus ulcer and paraplegia was admitted with low-grade fever for 2 days, chest congestion and cough. Patient also has nephrostomy tube but not making good urine/seems blocked. Patient on hemodialysis. 1. Infected nephrostomy tube site-the patient does not have any urine to send for UA or culture. Patient nursing staff and send the nephrostomy tube secretions. ID consulted. His father wanted to discharge the patient go home and then see urologist for nephrostomy tube change as an outpatient in [facility] [place]. Discussed with the ID. Patient is on home dialysis Wednesday to Wednesday. He recommended cefepime 1 g Wednesday to and 2 g on Wednesday. Fortunately, [facility] called as they have the bed. Patient is going to be transferred to [facility] [place] to change the nephrostomy tube. 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 At home he is on home dialysis as mentioned above. #3 hypoxia-etiology unclear, probably secondary to atelectasis, monitor pulse ox and adjust oxygen accordingly. On 2 L of oxygen #4 spina bifida with paraplegia-complicates care, medical course, recovery, and prognosis #5 chronic respiratory failure with hypoxia and hypercapnia-patient requires use of BiPAP at night #6 secondary pulmonary arterial hypertension Transfer process with the patient and his father and all questions were answered to patient's satisfaction. Follow with PCP in 1 to 2 weeks Total time spent, exact 35 minutes on discharge meds reconciliation, examination, coordination of care with nurses and ancillary staff, review of imaging and blood test and discussion with the patient on follow-up instruc tions. Medications at Discharge Home Medications gabapentin 100 mg capsule 100 mg PO DAILY NEUROPATHY 09/17/22 hydrocortisone 10 mg tablet 15 mg PO DAILY ALLERGIES 09/17/22 loperamide 2 mg tablet 2 mg PO Q6H PRN DIARRHEA 09/17/22 midodrine 10 mg tablet 10 mg PO TID PRN PRN DIZZINESS 09/17/22 sertraline 25 mg tablet 25 mg PO DAILY DEPRESSION 09/17/22 trazodone 100 mg tablet 100 mg PO QHS SLEEP 09/17/22 simethicone 80 mg chewable tablet (Gas Relief (simethicone)) 80 mg PO BID PRN GAS RELIEF 10/28/22 ferrous gluconate 240 mg (27 mg iron) tablet (Ferate) 240 mg PO BID SUPPLEMENT 02/18/23 hydrocortisone 10 mg tablet 10 mg PO QHS ALLERGIES 03/16/23 levothyroxine 75 mcg tablet 75 mcg PO DAILY THYROID 03/16/23 sevelamer carbonate 800 mg tablet 800 mg PO TIDCM KIDNEYS 03/16/23 cefepime 2 gram solution for injection 2 g IV .HEMODILAYSIS 2 weeks 04/22/23 Physical Exam Narrative Please see the exam finding on the same day. Weight / BMI Weight Weight: 237 lb 3.478 oz Body Mass Index (BMI) 43.6 ABG / Lab / Microbiology Data 04/22/23 07:23 04/22/23 07:23 Laboratory: Laboratory Results - last 24 hr 04/22/23 07:23: WBC 8.8, RBC 2.87 L, Hgb 7.5 L, Hct 25.9 L, MCV 90.2, MCH 26.1 L , MCHC 29.0 L, RDW Std Deviation 66.5 H, RDW Coeff of Francisco 20.2 H, Plt Count 249, MPV 10.6, Immature Gran % (Auto) 0.800, Neut % (Auto) 74.5 H, Lymph % (Auto) 11.9 L, [place] % (Auto) 7.9, Eos % (Auto) 4.2, Baso % (Auto) 0.7, Absolute Neuts (auto) 6.6, Absolute Lymphs (auto) 1.05, Nucleated RBC % 0, Differential Comment SCANNED, Anisocytosis 2+, Microcytosis 1+, Macrocytosis 1+, Sodium 139, Potassium 3.8, Chloride 103, Carbon Dioxide 28.0, Anion Gap 8, BUN 41 H, Creati nine 4.00 H, Estim Creat Clear Calc 21.04, Est GFR (MDRD) Af Amer 23 L, Est GFR (MDRD) Non-Af 19 L, BUN/Creatinine Ratio 10.2, Glucose 108 H, Calcium 8.6 Microbiology: Microbiology 04/19/23 20:54 Blood Culture (Wb) - Right Wrist Blood Culture - Preliminary No growth in 48 hours. 04/19/23 19:50 Blood Culture (Wb) - Right Forearm Blood Culture - Preliminary No growth in 48 hours. 04/21/23 09:40 Stool Stool Lactoferrin - Final 04/21/23 09:40 Stool Enteric Bacteriology - Final 04/19/23 20:32 Mucosa - Nasopharyngeal Respiratory Panel (PCR) - Final 04/19/23 18:55 Nasal Secretion SARS-CoV-2 & FLU Antigen (Rapid) - Final Meaningful Use Info Meaningful Use Diagnoses (Choose all that apply): None applicable Discharge Plan Admission Admit Date/Time: 04/19/23 23:32 Attending Provider: Reuben Fajardo Primary Care Provider: Cameron Romero Consulting Providers: Amarjit Estevez; Victor M Bernstein; Victor M Acevedo; Cameron Mclean; Luis Amador Discharge Orders/Prescriptions Prescriptions: New cefepime 2 gram recon soln 2 g IV .HEMODILAYSIS 14 Days Rx Instructions: 2 g with each hemodialysis session for 2 weeks. Total 6 vials No Action loperamide 2 mg Tablet 2 mg PO Q6H PRN (Reason: DIARRHEA ) trazodone 100 mg Tablet 100 mg PO QHS sertraline 25 mg Tablet 25 mg PO DAILY gabapentin 100 mg Capsule 100 mg PO DAILY hydrocortisone 10 mg Tablet 15 mg PO DAILY Hold Instructions: Resume on 09/23/22. midodrine 10 mg Tablet 10 mg PO TID PRN PRN (Reason: DIZZINESS ) Rx Instructions: (do not give last dose of day after 6PM or within 4 hrs of bedtime) ferrous gluconate [Ferate] 240 mg (27 mg iron) tablet 240 mg PO BID hydrocortisone 10 mg tablet 10 mg PO QHS levothyroxine 75 mcg tablet 75 mcg PO DAILY sevelamer carbonate 800 mg tablet 800 mg PO TIDCM simethicone [Gas Relief (simethicone)] 80 mg tablet,chewable 80 mg PO BID PRN (Reason: GAS RELIEF) Referrals / Follow Up: Cameron Romero DO [Primary Care Provider] - Disposition Disposition (needs filled in before D/C Order can be placed): Acute Care Hospital Charges/Coding Addendum Addendum: Please cancel the billing charge progress note today. Visit Charges Inpatient E&M: [id number] Disch Hosp >30min
[2023-04-22] MEDS: Juven (unflavored) Packet 1 PACKET PO (17:05)
== END 2023-04-22 20:24 | disposition short-term general hospital (02) | DRG 698 ==
LOC: ED 23:10 → MS3 23:48
PROVIDERS: Internal Medicine; Physician Assistant; Admitting Provider Internal Medicine; Emergency Provider Emergency Medicine; PCP Family Medicine; Visit Provider Internal Medicine
DX: T83.512A Infection and inflammatory reaction due to nephrostomy catheter, initial encounter (principal); N18.6 End stage renal disease; L89.153 Pressure ulcer of sacral region, stage 3; J96.12 Chronic respiratory failure with hypercapnia; I13.2 Hypertensive heart and chronic kidney disease with heart failure and with stage 5 chronic kidney disease, or end stage renal disease; G82.20 Paraplegia, unspecified; Z68.42 Body mass index [BMI] 45.0-49.9, adult; I50.22 Chronic systolic (congestive) heart failure; J96.11 Chronic respiratory failure with hypoxia; N13.2 Hydronephrosis with renal and ureteral calculous obstruction; D63.1 Anemia in chronic kidney disease; I95.89 Other hypotension; I50.812 Chronic right heart failure; E66.01 Morbid (severe) obesity due to excess calories; Z99.2 Dependence on renal dialysis; Q05.9 Spina bifida, unspecified; Z93.2 Ileostomy status; E03.9 Hypothyroidism, unspecified; J20.9 Acute bronchitis, unspecified; D50.9 Iron deficiency anemia, unspecified; R19.7 Diarrhea, unspecified; F41.8 Other specified anxiety disorders; Z98.2 Presence of cerebrospinal fluid drainage device
CPT/HCPCS: 36415; 71045; 71260; 74177; 74230; 80048; 80053; 83605; 83630; 83735; 84100; 84443; 85025; 85610; 85730; 86850; 86900; 86901; 86920; 86922; 87040; 87177; 87209; 87428; 87506; 87633; 90937; 92526; 92610; 92611; 93005; 94002; 94640; 97802; 97803; 99285; J7030; J7040; P9040; Q9967; A4216; G0257; Q5106

== ENCOUNTER → 2023-06-28 | Outpatient (CLI) | payer MEDICARE, MEDICAID, SELFPAY ==
[2023-06-28 13:49] LABS: Absolute Lymphocyte Count 0.79 X10^3/uL (0.83-4.51); Absolute Neutrophil Count 6.1 X10^3/uL (2.0-7.7); Basophil# 0.08 X10^3/uL; Eosinophil# 0.41 X10^3/uL; Eosinophils% 5.1 % (0-5); Hematocrit 27.7 % (40-54); Lymphocyte # 0.79 X10^3/ul (0.83-4.51); Lymphocyte % 9.8 % (19-41); Mean Corp Hgb Conc 28.9 g/dL (32-36); Mean Corpuscular Hgb 25.8 pg (27.0-32.0); Mean Corpuscular Volume 89.4 fL (80-94); Monocyte% 8.7 % (0-10); NRBC Flagged by Analyzer 0 % (0-5); Neutrophil # 6.07 X10^3/uL (2.7-7.7); Platelet Count 303 K/mm3 (150-450); RBC Distribution Width CV 17.5 % (11.6-14.6); RBC Distribution Width SD 57.3 fl (35.1-43.9); White Blood Count 8.1 K/mm3 (4.4-11.0)
== END | disposition home or self-care (01) ==
LOC: LAB.FUTURE 13:38
PROVIDERS: PCP Family Medicine; Visit Provider Family Medicine
DX: D72.829 Elevated white blood cell count, unspecified (principal)
CPT/HCPCS: 85025

== ENCOUNTER → 2023-07-05 | Outpatient (CLI) | payer MEDICARE, MEDICAID, SELFPAY ==
--- NOTE | 2023-07-05 12:59 | AVDS_ITS ---
Reason For Study: ESRD LEFT Lt Inflow - 173/117 cm/sec Lt Inflow - 526 ml/min Prox Anastomosis - 773/392 cm/s Prox Anastomosis - 1706 ml/min Prox Graft - 193/101 cm/s Prox Graft - 874 ml/min Mid Graft - 169/91 cm/s Mid Graft - 787 ml/min Dist Graft - 61/33 cm/s Dist Graft - 952 ml/min Lt [place] - 55/36 cm/s Lt Outflow - 1034 ml/min. VL/AV Fistula/Dialysis Graft Scan Interpretation Summary Mild inflow stenosis at 3.6mm with good flow noted throughout. Ordering Physician: Werner Bowie Referring Physician: Cameron Romero Performed By: Lola Dong, LEATHACS, RVT
[2023-07-05 15:20] LABS: Absolute Lymphocyte Count 1.19 X10^3/uL (0.83-4.51); Absolute Neutrophil Count 8.3 X10^3/uL (2.0-7.7); Basophil# 0.12 X10^3/uL; Eosinophil# 0.89 X10^3/uL; Eosinophils% 7.7 % (0-5); Hematocrit 28.8 % (40-54); Hemoglobin 8.2 g/dL (13.0-16.5); Lymphocyte # 1.19 X10^3/ul (0.83-4.51); Lymphocyte % 10.4 % (19-41); Mean Corp Hgb Conc 28.5 g/dL (32-36); Mean Corpuscular Hgb 25.1 pg (27.0-32.0); Mean Corpuscular Volume 88.1 fL (80-94); Monocyte# 0.87 X10^3/uL; Monocyte% 7.6 % (0-10); NRBC Flagged by Analyzer 0 % (0-5); Neutrophil # 8.34 X10^3/uL (2.7-7.7); Neutrophil % 72.6 % (47-70); Platelet Count 329 K/mm3 (150-450); RBC Distribution Width CV 17.2 % (11.6-14.6); Red Blood Count 3.27 M/mm3 (4.6-6.2); White Blood Count 11.5 K/mm3 (4.4-11.0)
== END | disposition home or self-care (01) ==
PROVIDERS: PCP Family Medicine; Referring Provider Surgery; Visit Provider Surgery
DX: D50.9 Iron deficiency anemia, unspecified (principal); N18.6 End stage renal disease
CPT/HCPCS: 36415; 85025; 93990

== ENCOUNTER → 2023-07-09 | Outpatient (CLI) | payer MEDICARE, MEDICAID, SELFPAY ==
[2023-07-09 16:34] LABS: Absolute Lymphocyte Count 0.79 X10^3/uL (0.83-4.51); Absolute Neutrophil Count 8.3 X10^3/uL (2.0-7.7); Basophil# 0.09 X10^3/uL; Basophil% 0.9 % (0-1); Eosinophil# 0.28 X10^3/uL; Eosinophils% 2.8 % (0-5); Hematocrit 29.6 % (40-54); Hemoglobin 8.6 g/dL (13.0-16.5); Lymphocyte # 0.79 X10^3/ul (0.83-4.51); Lymphocyte % 7.8 % (19-41); Mean Corp Hgb Conc 29.1 g/dL (32-36); Mean Corpuscular Hgb 25.3 pg (27.0-32.0); Mean Corpuscular Volume 87.1 fL (80-94); Monocyte# 0.59 X10^3/uL; Monocyte% 5.8 % (0-10); NRBC Flagged by Analyzer 0 % (0-5); Neutrophil # 8.26 X10^3/uL (2.7-7.7); Neutrophil % 81.7 % (47-70); Platelet Count 390 K/mm3 (150-450); RBC Distribution Width SD 53.2 fl (35.1-43.9); White Blood Count 10.1 K/mm3 (4.4-11.0)
== END | disposition home or self-care (01) ==
LOC: LABSPEC 16:26
PROVIDERS: PCP Family Medicine; Visit Provider Family Medicine
DX: D72.829 Elevated white blood cell count, unspecified (principal)
CPT/HCPCS: 85025

== ENCOUNTER → 2023-07-16 | Outpatient (CLI) | payer MEDICARE, MEDICAID, SELFPAY ==
[2023-07-16 18:02] LABS: Absolute Lymphocyte Count 0.92 X10^3/uL (0.83-4.51); Basophil% 0.9 % (0-1); Eosinophil# 0.22 X10^3/uL; Hematocrit 30.4 % (40-54); Hemoglobin 8.9 g/dL (13.0-16.5); Lymphocyte # 0.92 X10^3/ul (0.83-4.51); Lymphocyte % 8.5 % (19-41); Mean Corp Hgb Conc 29.3 g/dL (32-36); Mean Corpuscular Hgb 25.3 pg (27.0-32.0); Mean Corpuscular Volume 86.4 fL (80-94); Mean Platelet Vol. 10.1 fl (6.2-12.0); Monocyte# 0.52 X10^3/uL; Monocyte% 4.8 % (0-10); NRBC Flagged by Analyzer 0 % (0-5); Neutrophil # 8.98 X10^3/uL (2.7-7.7); Neutrophil % 83.3 % (47-70); Platelet Count 359 K/mm3 (150-450); RBC Distribution Width CV 17.8 % (11.6-14.6); Red Blood Count 3.52 M/mm3 (4.6-6.2); White Blood Count 10.8 K/mm3 (4.4-11.0)
== END | disposition home or self-care (01) ==
PROVIDERS: PCP Family Medicine; Visit Provider Family Medicine
DX: D50.9 Iron deficiency anemia, unspecified (principal); R79.89 Other specified abnormal findings of blood chemistry
CPT/HCPCS: 85025

== ENCOUNTER 2023-08-02 13:11 | Emergency (ER) | payer MEDICARE, MEDICAID, SELFPAY ==
[2023-08-02] VITALS (23 sets, daily range): BP systolic 35–135; BP diastolic 17–90; PULSE 61–128; RESP 10–37; TEMP 37.2; O2SAT 46–100; BMI 43.9
--- NOTE | 2023-08-02 13:27 | EKG12_ITS ---
Test Reason : SOB Blood Pressure : / mmHG Vent. Rate : 115 BPM Atrial Rate : 115 BPM P-R Int : 122 ms QRS Dur : 088 ms QT Int : 334 ms P-R-T Axes : 004 048 031 degrees QTc Int : 462 ms Sinus tachycardia Otherwise normal ECG Confirmed by Rojelio Reyes ([id number]), editor news CHARITO WAGGONER ([id number]) on 08/03/2023 10:16:45 AM Referred By: ELVIA/MEGHNA Confirmed By:Rojelio Reyes
--- NOTE | 2023-08-02 13:33 | EX.ED.DYSGE1 ---
HPI History of Present Illness Chief Complaint: General Illness Informant: patient (Patient unable to give me any history due to his overall medical condition.) and family Onset/Context/Timing Onset: Days Context: Gradual Onset Timing: Continuous Current Severity: Moderate Maximum Severity: Moderate Narrative Narrative: 27-year-old male history of paraplegia due to spina bifida. History of BiPAP at home. CHF, end-stage renal disease on dialysis he gets home dialysis 4 times a week last time was on Wednesday. He has had cloudy urine out of his nephrostomy tube and a fever of 101.8 yesterday. He is also developed diarrhea and increased lethargy according to the gentleman is in the room. Patient himself is unable to give me any history. He has been receiving Tylenol for fever. 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, stage 3 Pressure ulcer Right-sided heart failure Secondary pulmonary arterial hypertension Sleep apnea Spina bifida Systolic CHF Umbilical hernia Home Medications gabapentin 100 mg capsule 100 mg PO DAILY NEUROPATHY 09/17/22 [History Last Taken 08/01/23] hydrocortisone 10 mg tablet 15 mg PO DAILY ALLERGIES 09/17/22 [History Last Taken 08/01/23] loperamide 2 mg tablet 2 mg PO Q6H PRN DIARRHEA 09/17/22 [History Last Taken Unknown] midodrine 10 mg tablet 10 mg PO TID PRN PRN DIZZINESS 09/17/22 [History Last Taken 04/20/23 08:39] sertraline 25 mg tablet 25 mg PO DAILY DEPRESSION 09/17/22 [History Last Taken 08/01/23] trazodone 100 mg tablet 100 mg PO QHS SLEEP 09/17/22 [History Last Taken 08/01/23] simethicone 80 mg chewable tablet (Gas Relief (simethicone)) 80 mg PO BID PRN GAS RELIEF 10/28/22 [History Last Taken Unknown] hydrocortisone 10 mg tablet 10 mg PO QHS ALLERGIES 03/16/23 [History Last Taken 08/01/23] cefepime 2 gram solution for injection 2 g IV .HEMODILAYSIS 2 weeks 04/22/23 [Rx Last Taken 07/31/23] levothyroxine 88 mcg tablet 88 mcg PO DAILY 08/02/23 [History Last Taken 08/01/23] vitamin B complex-vitamin C-folic acid 0.8 mg tablet (Dora-Adal) 1 tab PO DAILY 08/02/23 [History Last Taken 08/01/23] Allergy/AdvReac Type Severity Reaction Status Date / Time ampicillin Allergy rash Verified 08/02/23 13:13 daptomycin Allergy Hives Verified 08/02/23 13:13 fentanyl Allergy Rash Verified 08/02/23 13:13 latex Allergy Hives Verified 08/02/23 13:13 meropenem Allergy rash Verified 08/02/23 13:13 morphine Allergy Hives Verified 08/02/23 13:13 sulbactam [From Unasyn] Allergy Hives Verified 08/02/23 13:13 vancomycin Allergy Hives Verified 08/02/23 13:13 Family History Grandfather Heart disease Father Hypertension Mother Hyperlipidemia Surgical History History of back surgery History of foot surgery History of kidney surgery History of ventriculoperitoneal shunting S/P cutaneous-vesicostomy S/P ureteral stent placement Status post laser lithotripsy of ureteral calculus Social History household members: family Smoking Status: Never smoker second hand exposure: Yes alcohol intake: never substance use type: does not use ROS ROS ED ROS Narrative Fever. Cloudy urine. Unable to obtain from patient due to mental status.Review of systems per family. Review of Systems ROS Unobtainable: due to encephalopathy Constitutional Constitutional ED: Reports fever(s) Eyes Eyes: Denies blurry vision ENT ENT ED: Denies ear pain Cardiovascular Cardiovascular: Denies chest pain Respiratory/Chest Respiratory/Chest: Denies cough or dyspnea Gastrointestinal Gastrointestinal: Reports diarrhea; Denies abdominal pain, constipation, nausea or vomiting Genitourinary Genitourinary ED: Denies dysuria or hematuria Musculoskeletal Musculoskeletal: Denies arthralgias or back pain Integumentary Denies abscess Neurologic Neurologic: Denies headache(s) Psychiatric Psychiatric: Denies anxiety Endocrine Endocrinology: Denies cold intolerance Hematologic/Lymphatic Hematologic/Lymphatic: Reports none Allergic/Immunologic Allergic/Immunologic ED: Denies mouth swelling, tongue swelling or urticaria EXAM Physical Exam Narrative Exam Narrative: 27-year-old male initial temperature is 99 degrees orally. He is hypotensive his initial pressure 78/67. H EENT exam eyes are closed. Dry mucous membranes. No facial trauma. Neck nontender no lymphadenopathy. Lungs clear to auscultation bilaterally. Heart tachycardic rate about 120 no appreciable murmur. Abdomen soft, nontender, nondistended, normal bowel sounds without peritoneal signs. He is flaccid bilateral lower extremities. He is currently moving his upper extremities. Neurologically his eyes are closed. Currently he is not responding to commands. Const Vital Signs: 08/02/23 13:13 08/02/23 13:18 08/02/23 13:39 Temperature 99 F Temperature Source Oral Pulse Rate 119 H Respiratory Rate 37 H Respiratory Effort Short of Breath Labored Respiratory Depth Respiratory Pattern Tachypnea Blood Pressure Blood Pressure Mean Pulse Ox 97 Oxygen Delivery Method Nasal Cannula Venturi Mask Oxygen Flow Rate (L/min) 2 Fraction of Inspired Oxygen (FIO2) 08/02/23 13:33 08/02/23 13:30 08/02/23 13:45 Temperature Temperature Source Pulse Rate 117 H 116 H Respiratory Rate 21 H 33 H Respiratory Effort Respiratory Depth Respiratory Pattern Blood Pressure 78/67 L 135/90 H Blood Pressure Mean 70 102 Pulse Ox 95 100 96 Oxygen Delivery Method Venturi Mask Venturi Mask Venturi Mask Oxygen Flow Rate (L/min) 6 Fraction of Inspired Oxygen (FIO2) 31 08/02/23 13:13 08/02/23 14:14 08/02/23 14:00 Temperature 99 F 99 F Temperature Source Oral Oral Pulse Rate 119 H 115 H 115 H Respiratory Rate 37 H 36 H 36 H Respiratory Effort Respiratory Depth Respiratory Pattern Blood Pressure 78/67 L 93/47 L 93/47 L Blood Pressure Mean 70 62 62 Pulse Ox 97 91 91 Oxygen Delivery Method Nasal Cannula Venturi Mask Oxygen Flow Rate (L/min) 6 Fraction of Inspired Oxygen (FIO2) 31 08/02/23 14:30 08/02/23 14:43 08/02/23 14:45 Temperature Temperature Source Pulse Rate 116 H 106 H Respiratory Rate 37 H 26 H Respiratory Effort [place] Respiratory Depth Shallow Respiratory Pattern Tachypnea Blood Pressure 92/32 L 74/34 L Blood Pressure Mean 52 48 Pulse Ox 81 95 Oxygen Delivery Method Venturi Mask Oxygen Flow Rate (L/min) Fraction of Inspired Oxygen (FIO2) 08/02/23 14:54 08/02/23 14:55 Temperature Temperature Source Pulse Rate 91 86 Respiratory Rate 26 H 18 Respiratory Effort Respiratory Depth Respiratory Pattern Blood Pressure 88/69 L Blood Pressure Mean 76 Pulse Ox 90 76 Oxygen Delivery Method Oxygen Flow Rate (L/min) Fraction of Inspired Oxygen (FIO2) 100 Positive well nourished, well developed and obese; Negative for cachectic, contractures or unkempt General Appearance ED: well developed and pallor; Negative for unkempt, cachectic, contractures, cyanotic, diaphoretic or NAD Nutritional Appearance: obese; Negative for cachectic HEENT Reports dry mucous membranes Negative for trauma or tenderness Mouth ED: Yes dry mucous membranes Mouth: dry mucous membranes Eyes PERRL and EOMs intact bilaterally General Eye ED: Negative for pale conjunctiva, scleral icterus or other Neck no lymphadenopathy, supple and no JVD General: Negative for tenderness Lymph Lymphatic: Negative for other Chest Wall inspection of chest normal and palpation of chest normal Chest: Negative for other Resp normal respiratory effort and clear to auscultation bilaterally Effort and Inspection: Negative for retractions or pain with movement Auscultation: Negative for rales, rhonchi or wheezes Cardio regular rhythm, S1 normal heart sound, S2 normal heart sound and no murmurs; Negative for regular rate Rate: tachycardic GI normal to inspection, nondistended, normoactive bowel sounds, non-tender, non-distended and no masses Inspection: Negative for abdominal distention Auscultation: normoactive bowel sounds Palpation: soft; Negative for tender Back/Spine no CVA tenderness General Back: Negative for CVA tenderness Cervical Spine: Negative for cervical spine tenderness Thoracic Spine / Upper Back: Negative for thoracic spinal tenderness or paraspinal muscle tenderness Lumbar Spine / Lower Back: Negative for lumbar spinal tenderness Extremity Negative for normal to inspection Extremity Narrative: Not moving his upper extremities currently. Chronic flaccid paralysis in lower extremities due to spina bifida. General Extremety ED: Negative for edema or tenderness General Extremity: Negative for edema Neuro No oriented x3 Neuro Narrative: Decreased mental status. Not following commands. Not answering questions. Sensorium / Orientation: orientation impaired; Negative for alert Motor Exam: general weakness and strength abnormal; Negative for strength 5/5 throughout Psych Negative for mental status grossly normal Psych Narrative: Decreased mental status. Unable to assess Appearance: Negative for unkempt Skin no rashes or lesions noted and no wounds General Skin Exam: pallor; Negative for jaundice Lesions: No lesion noted Rashes: No rashes noted Trauma: Negative for abrasion Wounds: Negative for wounds noted MDM MDM MDM Narrative Medical decision making narrative: 27-year-old gentleman with paraplegia due to spina bifida though. Reportedly had a fever as high as 101.8 at home last several days with cloudy urine. Concern is UTI or urosepsis or sepsis from another etiology. He is hypotensive and received IV fluids. Oriented to family members here he is full go and if he needs to be they would like him intubated. Currently his vital signs on his hypotension he is protecting his airway and he is not hypoxic. Patient received IV fluids. Sepsis workup. Admission and IV antibiotics eventually. Patient progressively worsened in the emergency department. Initially responded to IV fluids and his pressure was improving and his pressure went in the 70s and his mental status has progressively gotten worse. He was intubated using a 7 and half ET tube. Currently to 25 at the lip sounds to see the chest x-ray if need be we will adjust it. I was intubated on the first attempt. It is a tough intubation. He is anterior there is a lot of posterior secretions. But we do a bilateral breath sounds and his pulse ox currently is 94%. His initial blood gas were assuming is a venous gas. Patient has been started on cefepime and Zyvox. Hospitalist has been contacted. He is down will be evaluating the patient. He is also already spoken with the telephone interceptor operator. Awaiting ICU transfer patient became bradycardic bradycardia down and went into PEA while I was talking with family in the waiting room. Nurses came and got me. We immediately started CPR. He was given atropine and then 1 mg of epinephrine. Drugs were cycled. He was also given an ampule of etomidate. Currently he has a strong carotid pulse at about 120. Blood pressure is around 93/58. Or awaiting the ICU bed. I will start Levophed peripherally. PICC line is currently working on a potential line placement in his right arm. Patient but extremely difficult central line placement due to his body habitus. Currently he is stable with a strong carotid pulse. Blood pressure is at least 80 if not stronger. His heart rates in the 80s. As O2 pulse ox saturation is in the mid to high 90s. He is resting on the vent. He will go to the ICU once again a PICC line. Family is aware how sick he is. They know that we had to restart his heart with medications and CPR. Currently he is full go. Around 4 PM the patient bradycardia down again. He was then given another dose of atropine and epinephrine. We were able to get his heart restarted again. Currently he has a carotid pulse. The PICC line nurse is attempting to place the PICC line in his right arm. There is Levophed running. IV antibiotics are running. I again went out in the waiting room discussed the patient's care with his mother and father. They reiterated that he is full go and he would want everything attempted to save his life. History & Record Review Discussion w/independent historian: Patient Additional record(s) reviewed:: Prior inpatient record, Prior outpatient record, Prior ED visit and Prior labs Lab Data Attestation: I reviewed the patient's lab results. Lab results narrative: CBC shows elevated white count of 17.0. H&H 9.1 and 31.9. Platelets 211. Electrolytes show a gap of 14. BUN of 52 creatinine 5.61. He does have a history of end-stage renal disease and dialysis. He clinically looks dehydrated. Liver enzymes show an alk phos of 237. His lactic acid is elevated at 5.2. Urinalysis shows greater than 100 white cells. No nitrates. 4+ bacteria. Culture will be sent. Labs: Laboratory Results - last 24 hr 08/02/23 08/02/23 13:15 13:35 WBC 17.0 H RBC 3.58 L Hgb 9.1 L Hct 31.9 L MCV 89.1 MCH 25.4 L MCHC 28.5 L RDW Std Deviation 58.6 H RDW Coeff of [place] 18.1 H Plt Count 211 MPV 10.9 Immature Gran % (Auto) 0.800 Neut % (Auto) 86.8 H Lymph % (Auto) 7.1 L [place] % (Auto) 3.1 Eos % (Auto) 1.4 Baso % (Auto) 0.8 Absolute Neuts (auto) 14.8 H Absolute Lymphs (auto) 1.20 Nucleated RBC % 0.2 PT 21.7 H INR 1.9 APTT 48.2 H Sodium 136 Potassium 3.8 Chloride 97 L Carbon Dioxide 25.0 Anion Gap 14 BUN 52 H Creatinine 5.61 H Estim Creat Clear Calc 20.98 Est GFR (MDRD) Af Amer 15 L Est GFR (MDRD) Non-Af 13 L BUN/Creatinine Ratio 9.3 L Glucose 62 L Lactic Acid 5.2 H* Calcium 8.6 Total Bilirubin 0.90 AST 37 ALT 18 Alkaline Phosphatase 237 H Total Protein 8.1 Albumin 2.2 L Globulin 5.9 H Albumin/Globulin Ratio 0.4 L Urine Color SEE COMMENT BELOW Urine Clarity Turbid Urine pH 7.0 Ur Specific [place] 1.015 Urine Protein 500 H Urine Glucose (UA) 50 H Urine Ketones Negative Urine Occult Blood 150 H Urine Nitrite Negative Urine Bilirubin Negative Urine Urobilinogen Normal Ur Leukocyte Esterase 100 H Urine RBC 0 SEEN Urine WBC >100 SEEN Ur Squamous Epith Cells 0 SEEN Amorphous Sediment 4+ Urine Bacteria 0 SEEN Urine Mucus 0 SEEN ABG Data ABG results: ABG 08/02/23 14:41 Specimen Type RACHEL Sample Site R Brach O2 % 31.0 VBG pH 7.21 L VBG pO2 50 H VBG HCO3 20 L VBG Total CO2 22 L VBG O2 Sat (Calc) 76 H VBG Base Excess -8 L POC Mix VBG pCO2 Pt Tmp 51.2 H O2 Delivery Device Venti Mask Crit Call To/Read Back Yes Blood Gas Notified Whom spencer Blood Gas Notified Time 14:44:29 Radiography Chest X-Ray - ED: 1 View, Read by ED Physician, Heart, Lungs, Mediastinum, Bony Structures, No Acute Disease and Chronic Changes Diagnostic Testing: Clinical Impression(s) from Imaging Studies Chest X-Ray 08/02/23 13:45 IMPRESSION: Stable chest with no acute or emergent finding. Study compromised by patient''s habitus, as outlined above. Electronically Signed: Laurent Springer MD at 14:21 EDT , Chest X-Ray 08/02/23 14:50 IMPRESSION: Endotracheal tube below the antionette and should be withdrawn at least 4-[address] cm. Discussed case with Dr. Spencer after the second chest x-ray performed later today. Dr. Spencer reported that there were bilateral breath sounds present. See discussion above. N.B. : The above Results were Read Back by Laurent Springer MD to Arias Spencer MD, and understanding confirmed on 08/02/2023 15:38:58 (ET). Electronically Signed: Laurent Springer MD at 15:40 EDT Reading Location ID and State: [address] [place] [address] , Service support , ADDENDUM: 08/02/23 1547 IMPRESSION: Endotracheal tube below the antionette and should be withdrawn at least 4-5 cm. Discussed case with Dr. Spencer after the second chest x-ray performed later today. Dr. Spencer reported that there were bilateral breath sounds present. See discussion above. N.B. : The above Results were Read Back by Laurent Springer MD to Arias Spencer MD, and understanding confirmed on 08/02/2023 15:38:58 (ET). Electronically Signed: Laurent Springer MD at 15:40 EDT Reading Location ID and State: [facility] / [place] , Service support , Chest x-ray portable single view interpreted by myself shows no acute abnormality. No obvious pneumonia. Is a limited study. Limited inspiration. He does have thoracic metallic spinal rods in place. No obvious pneumonia. Not no obvious effusion. Rhythm Strip Rhythm Strip: Sinus Tach Rate: 115 Ectopy: None EKG Initial EKG: Attestation: I personally reviewed and interpreted this EKG as follows: Interpretation: No Acute Injury Pattern and Sinus Tachycardia Comments: Sinus tachycardia rate 115 no acute signs of MS or ischemia. There is a pressure injury to the patient's sacrum approximately Critical Care Time Critical Care Time: Yes Critical care time (excluding procedures): 30-74 minutes, Discussing w/Consultants and - (55 min.) Discharge Plan Dx/Rx/DC Orders Clinical Impression: Sepsis, Acute hypotension, Acute dehydration, Metabolic acidosis, End stage chronic kidney disease, Acute UTI, Respiratory failure, Hypotension, Hx of spina bifida Disposition Disposition: Acute Care [facility]
[2023-08-02] MEDS: 0.9% Normal Saline (1000mL) 1,000 ML 999 ML IV ×3 (13:39→15:08)
[2023-08-02 13:40] LABS: Bacteria 0 SEEN /hpf (None Seen); Mucous, Urine 0 SEEN /hpf (<or=2+); Red Blood Cells-Urine 0 SEEN /hpf (0-5); Squamous Epithelial Cells - UA 0 SEEN /hpf (0-5)
[2023-08-02 13:45] LABS: Absolute Neutrophil Count 14.8 X10^3/uL (2.0-7.7); Basophil# 0.13 X10^3/uL; Basophil% 0.8 % (0-1); Eosinophil# 0.24 X10^3/uL; Eosinophils% 1.4 % (0-5); Hematocrit 31.9 % (40-54); Hemoglobin 9.1 g/dL (13.0-16.5); Lymphocyte % 7.1 % (19-41); Mean Corp Hgb Conc 28.5 g/dL (32-36); Mean Corpuscular Hgb 25.4 pg (27.0-32.0); Mean Corpuscular Volume 89.1 fL (80-94); Mean Platelet Vol. 10.9 fl (6.2-12.0); Monocyte# 0.53 X10^3/uL; Monocyte% 3.1 % (0-10); NRBC Flagged by Analyzer 0.2 % (0-5); Neutrophil # 14.76 X10^3/uL (2.7-7.7); Neutrophil % 86.8 % (47-70); Platelet Count 211 K/mm3 (150-450); RBC Distribution Width CV 18.1 % (11.6-14.6); RBC Distribution Width SD 58.6 fl (35.1-43.9); Red Blood Count 3.58 M/mm3 (4.6-6.2)
--- NOTE | 2023-08-02 13:45 | RAD_ITS ---
STUDY: X-RAY CHEST REASON FOR EXAM: Male, 27 years old. Dyspnea. TECHNIQUE: Single frontal view of the chest on T2 images. COMPARISON: 04/19/2023 FINDINGS: Marked thoracolumbar scoliosis with [place] rods and extremely low volume inspiration compromises the study. No interval change in marked elevation of the hemidiaphragms, marked vascular crowding and diffuse interstitial prominence. No acute or emergent finding. No abnormality of the visualized soft tissue structures of the upper abdomen. RAD/Chest 1 View (Portable) IMPRESSION: Stable chest with no acute or emergent finding. Study compromised by patient''s habitus, as outlined above. Electronically Signed: Laurent Springer MD at 14:21 EDT ,
[2023-08-02 13:47] LABS: Glucose, Dipstick 50 mg/dl (Normal); Ketone-Dipstick Negative (Negative); Leukocyte Esterase-Dipstick 100 /ul (Negative); Nitrite-Dipstick Negative (Negative); Occult Blood-Urine 150 /ul (Negative); Protein-Dipstick 500 mg/dl (Negative); Specific Gravity, Urine 1.015 (1.002-1.030); Urine Bilirubin Dipstick Negative (Negative); Urine Clarity Turbid (Clear); Urine Urobilinogen Normal (Normal)
[2023-08-02 13:57] LABS: Partial Thromboplast Time 48.2 Seconds (24.1-36.2)
[2023-08-02 14:03] LABS: ALB/GLOB Ratio 0.4 RATIO (0.9-2.4); AST(SGOT) 37 U/L (15-37); Alanine Aminotransfer ALT/SGPT 18 U/L (16-61); Albumin, Serum 2.2 g/dL (3.2-5.0); Alkaline Phosphatase 237 U/L (45-117); Anion Gap 14 (5-15); BUN 52 mg/dL (7-18); BUN/Creat Ratio 9.3 RATIO (10-20); Calcium,Total 8.6 mg/dL (8.5-10.1); Chloride 97 mmol/L (98-107); Creatinine, Serum 5.61 mg/dL (0.70-1.30); EST Glomerular Filtration Rate 13 mL/min (>60); Est Glom Filt Rate - Afr Amer 15 mL/min (>60); Estimated Creatinine Clearance 20.98 ml/min; Globulin 5.9 g/dL (2.2-4.2); Glucose 62 mg/dL (74-106); Potassium 3.8 mmol/L (3.5-5.1); Protein, Total 8.1 g/dL (6.4-8.2); Sodium Level 136 mmol/L (136-145)
[2023-08-02 14:09] LABS: Lactic Acid 5.2 mmol/L (0.4-1.9)
[2023-08-02 14:18] LABS: International Normalized Ratio 1.9; Prothrombin Time (Protime)PT. 21.7 SECONDS (11.7-14.9)
[2023-08-02 14:22] LABS: Color, Urine SEE COMMENT BELOW (Yellow); White Blood Cells >100 SEEN /hpf (0-5)
[2023-08-02 14:23] LABS: Amorphous Sediment 4+
[2023-08-02 14:47] LABS: Blood Gas Specimen Type VEN; O2 Delivery Device Venti Mask; SITE R Brach; Time Given 14:44:29; VBG BASE EXCESS -8 mmol/L (-1.0-3.5); VBG Bicarbonate 20 mmol/L (22-26); VBG PO2 50 mmHg (25-40); VBG SO2 76 % (50-70); VBG TCO2 22 mmol/L (23-33); VBG pCO2 51.2 mmHg (41-51); VBG pH 7.21 (7.32-7.42)
--- NOTE | 2023-08-02 14:50 | RAD_ITS ---
STUDY: X-RAY CHEST REASON FOR EXAM: Male, 27 years old. Endotracheal tube placement. TECHNIQUE: Single frontal view of the chest. COMPARISON: Earlier in the day. FINDINGS: Endotracheal tube placed and appears to be just beyond the antionette. Tube should be withdrawn at least 4-5 cm. Stable marked thoracolumbar scoliosis and elevation of the hemidiaphragms with vascular crowding and diffuse interstitial pattern. No abnormality of the visualized soft tissue structures of the upper abdomen. RAD/Chest 1 View (Portable) IMPRESSION: Endotracheal tube below the antionette and should be withdrawn at least 4-[address] Discuss[address] case [address] Hernandez after the second chest x-ray performed later today. Dr. Hernandez reported that there were bilateral breath sounds present. See discussion above. N.B. : The above Results were Read Back by Laurent Springer MD to Arias Hernandez MD, and understanding confirmed on 08/02/2023 15:38:58 (ET). Electronically Signed: Laurent Springer MD at 15:40 EDT ,
--- NOTE | 2023-08-02 15:05 | RAD_ITS ---
STUDY: X-RAY CHEST REASON FOR EXAM: Male, 27 years old. Endotracheal tube placement after slight withdrawal. TECHNIQUE: Single frontal view of the chest. COMPARISON: Earlier in the day. FINDINGS: Endotracheal tube at the antionette. Dr. Hernandez reported that there were bilateral breath sounds with the tube at its present location when I called him about the first chest x-ray. Stable chest otherwise. No abnormality of the visualized soft tissue structures of the upper abdomen. RAD/Chest 1 View (Portable) IMPRESSION: Tip of endotracheal tube now at the antionette. Dr. Hernandez reports bilateral breast sounds. See discussion above. Electronically Signed: Laurent Springer MD at 15:39 EDT ,
[2023-08-02] MEDS: Etomidate 20 MG/10 ML Vial 10 MG IV (15:29)
[2023-08-02] MEDS: Norepinephrine 8 MG in 0.9% Normal Saline (250mL Bag) 242 ML 9.4 MG CONT INF (15:30)
--- NOTE | 2023-08-02 15:30 | CASEMGMT ---
Emergency Department Group Exercise Manager Sw responded to code blue for patient in Emergency Department. Sw presented to ED and met with parents of patient. Sw provided emotional support. Sw offered to call additional family members should parents wish, however they declined. Cordage Sales Representative Ray also present providing parents with ongoing emotional and spiritual support. Patient's father expressed medical concern for patient's mother should patient . Sw utilized active listening and continued to provide ongoing emotional support for parents. While sw was present parents were understandably upset and emotional, but contained. Parents asking appropriate questions with understandable amount of anxiety due to current circumstances. Tiburcio Lees, NUTRIENT MANAGEMENT SPECIALIST, RICE FIELD WORKER
[2023-08-02] MEDS: Linezolid 600 MG 600 MG/300 ML BAG 200 MG IV (15:42)
[2023-08-02] MEDS: Cefepime 1 GM in 0.9% NS 50 ML Minibag Q12 IV (15:42)
--- NOTE | 2023-08-02 17:06 | RAD_ITS ---
We are attempting to reach an attending provider to discuss findings. An addendum with communication details will be sent when the communication is complete. STUDY: X-RAY CHEST REASON FOR EXAM: Male, 27 years old. post left arm picc-line placed TECHNIQUE: AP portable COMPARISON: August 02, 2023 3 01:00 PM FINDINGS: Poor inspiratory effort is seen. Bilateral perihilar infiltrate or pulmonary edema more pronounced on the left. There is no demonstrated pleural abnormality. Endotracheal tube noted with tip 1.5 cm proximal to antionette and should be pulled back a couple centimeters. Heart is enlarged Normal mediastinum and akira. Normal visualized pulmonary arteries. Normal visualized aortic arch and descending thoracic aorta. Postsurgical changes status post thoracolumbar scoliosis correction surgery. Normal visualized ribs, clavicles, and shoulders. There is no PICC line seen on the left. There is a line projecting over the right upper chest wall possibly representing PICC line in the subclavian. There is no demonstrated abnormality of the visualized soft tissue structures of the upper abdomen. RAD/Chest 1 View (Portable) IMPRESSION: Poor inspiratory effort and bibasilar infiltrate or pulmonary edema more severe on the left Low-lying endotracheal tube which should be withdrawn 2 to 3 cm. Nonvisualized left PICC line. Possible right-sided PICC line with tip in the mid subclavian. Clinical correlation recommended Electronically Signed: Morris Savage MD at 17:28 EDT ,
--- NOTE | 2023-08-02 17:06 | EX.ED.DYSGE1 ---
HPI History of Present Illness Chief Complaint: General Illness [facility] Medical History Anxiety BiPAP (biphasic positive airway pressure) dependence Chronic hypotension Chronic systolic (congestive) heart failure Decubitus ulcer Decubitus ulcer Dialysis patient Diarrhea ESRD (end stage renal disease) History of nephrolithiasis Hypotension Hypotensive episode Junctional escape rhythm Kidney disease Leukocytosis Malfunction of nephrostomy tube Morbid obesity Non-smoker Obstructive sleep apnea Paraplegia Paraplegic immobility syndrome Pericardial effusion (07/14/18) 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, stage 3 Pressure ulcer Right-sided heart failure Secondary pulmonary arterial hypertension Sleep apnea Spina bifida Systolic CHF Umbilical hernia Home Medications gabapentin 100 mg capsule 100 mg PO DAILY NEUROPATHY 09/17/22 [History Last Taken 08/01/23] hydrocortisone 10 mg tablet 15 mg PO DAILY ALLERGIES 09/17/22 [History Last Taken 08/01/23] loperamide 2 mg tablet 2 mg PO Q6H PRN DIARRHEA 09/17/22 [History Last Taken Unknown] midodrine 10 mg tablet 10 mg PO TID PRN PRN DIZZINESS 09/17/22 [History Last Taken 04/20/23 08:39] sertraline 25 mg tablet 25 mg PO DAILY DEPRESSION 09/17/22 [History Last Taken 08/01/23] trazodone 100 mg tablet 100 mg PO QHS SLEEP 09/17/22 [History Last Taken 08/01/23] simethicone 80 mg chewable tablet (Gas Relief (simethicone)) 80 mg PO BID PRN GAS RELIEF 10/28/22 [History Last Taken Unknown] hydrocortisone 10 mg tablet 10 mg PO QHS ALLERGIES 03/16/23 [History Last Taken 08/01/23] cefepime 2 gram solution for injection 2 g IV .HEMODILAYSIS 2 weeks 04/22/23 [Rx Last Taken 07/31/23] levothyroxine 88 mcg tablet 88 mcg PO DAILY 08/02/23 [History Last Taken 08/01/23] vitamin B complex-vitamin C-folic acid 0.8 mg tablet (Dora-Adal) 1 tab PO DAILY 08/02/23 [History Last Taken 08/01/23] Allergy/AdvReac Type Severity Reaction Status Date / Time ampicillin Allergy rash Verified 08/02/23 13:13 daptomycin Allergy Hives Verified 08/02/23 13:13 fentanyl Allergy Rash Verified 08/02/23 13:13 latex Allergy Hives Verified 08/02/23 13:13 meropenem Allergy rash Verified 08/02/23 13:13 morphine Allergy Hives Verified 08/02/23 13:13 sulbactam [From Unasyn] Allergy Hives Verified 08/02/23 13:13 vancomycin Allergy Hives Verified 08/02/23 13:13 Family History Grandfather Heart disease Father Hypertension Mother Hyperlipidemia Surgical History History of back surgery History of foot surgery History of kidney surgery History of ventriculoperitoneal shunting S/P cutaneous-vesicostomy S/P ureteral stent placement Status post laser lithotripsy of ureteral calculus Social History household members: family Smoking Status: Never smoker second hand exposure: Yes alcohol intake: never substance use type: does not use EXAM Physical Exam Const Vital Signs: 08/02/23 13:13 08/02/23 13:18 08/02/23 13:39 Temperature 99 F Temperature Source Oral Pulse Rate 119 H Respiratory Rate 37 H Respiratory Effort Short of Breath Labored Respiratory Depth Respiratory Pattern Tachypnea Blood Pressure Blood Pressure Mean Pulse Ox 97 Oxygen Delivery Method Nasal Cannula Venturi Mask Oxygen Flow Rate (L/min) 2 Fraction of Inspired Oxygen (FIO2) 08/02/23 13:33 08/02/23 13:30 08/02/23 13:45 Temperature Temperature Source Pulse Rate 117 H 116 H Respiratory Rate 21 H 33 H Respiratory Effort Respiratory Depth Respiratory Pattern Blood Pressure 78/67 L 135/90 H Blood Pressure Mean 70 102 Pulse Ox 95 100 96 Oxygen Delivery Method Venturi Mask Venturi Mask Venturi Mask Oxygen Flow Rate (L/min) 6 Fraction of Inspired Oxygen (FIO2) 31 08/02/23 13:13 08/02/23 14:14 08/02/23 14:00 Temperature 99 F 99 F Temperature Source Oral Oral Pulse Rate 119 H 115 H 115 H Respiratory Rate 37 H 36 H 36 H Respiratory Effort Respiratory Depth Respiratory Pattern Blood Pressure 78/67 L 93/47 L 93/47 L Blood Pressure Mean 70 62 62 Pulse Ox 97 91 91 Oxygen Delivery Method Nasal Cannula Venturi Mask Oxygen Flow Rate (L/min) 6 Fraction of Inspired Oxygen (FIO2) 31 08/02/23 14:30 08/02/23 14:43 08/02/23 14:45 Temperature Temperature Source Pulse Rate 116 H 106 H Respiratory Rate 37 H 26 H Respiratory Effort [place] Respiratory Depth Shallow Respiratory Pattern Tachypnea Blood Pressure 92/32 L 74/34 L Blood Pressure Mean 52 48 Pulse Ox 81 95 Oxygen Delivery Method Venturi Mask Oxygen Flow Rate (L/min) Fraction of Inspired Oxygen (FIO2) 08/02/23 14:54 08/02/23 14:55 Temperature Temperature Source Pulse Rate 91 86 Respiratory Rate 26 H 18 Respiratory Effort Respiratory Depth Respiratory Pattern Blood Pressure 88/69 L Blood Pressure Mean 76 Pulse Ox 90 76 Oxygen Delivery Method Oxygen Flow Rate (L/min) Fraction of Inspired Oxygen (FIO2) 100 MDM MDM MDM Narrative Medical decision making narrative: Patient coded a third time. Again was given epinephrine and atropine CPR was resumed. We continued CPR for about 10 minutes. We were able to regain a carotid pulse. We are awaiting transfer to the ICU. He did have a portable chest x-ray done which shows that the PICC line appears to be in the midportion of the right subclavian. That is currently being used for the Levophed. He also has IV fluids and IV antibiotics running through his peripheral lines. Lab Data Labs: Laboratory Results - last 24 hr 08/02/23 08/02/23 13:15 13:35 WBC 17.0 H RBC 3.58 L Hgb 9.1 L Hct 31.9 L MCV 89.1 MCH 25.4 L MCHC 28.5 L RDW Std Deviation 58.6 H RDW Coeff of [place] 18.1 H Plt Count 211 MPV 10.9 Immature Gran % (Auto) 0.800 Neut % (Auto) 86.8 H Lymph % (Auto) 7.1 L Ponce % (Auto) 3.1 Eos % (Auto) 1.4 Baso % (Auto) 0.8 Absolute Neuts (auto) 14.8 H Absolute Lymphs (auto) 1.20 Nucleated RBC % 0.2 PT 21.7 H INR 1.9 APTT 48.2 H Sodium 136 Potassium 3.8 Chloride 97 L Carbon Dioxide 25.0 Anion Gap 14 BUN 52 H Creatinine 5.61 H Estim Creat Clear Calc 20.98 Est GFR (MDRD) Af Amer 15 L Est GFR (MDRD) Non-Af 13 L BUN/Creatinine Ratio 9.3 L Glucose 62 L Lactic Acid 5.2 H* Calcium 8.6 Total Bilirubin 0.90 AST 37 ALT 18 Alkaline Phosphatase 237 H Total Protein 8.1 Albumin 2.2 L Globulin 5.9 H Albumin/Globulin Ratio 0.4 L Urine Color SEE COMMENT BELOW Urine Clarity Turbid Urine pH 7.0 Ur Specific [place] 1.015 Urine Protein 500 H Urine Glucose (UA) 50 H Urine Ketones Negative Urine Occult Blood 150 H Urine Nitrite Negative Urine Bilirubin Negative Urine Urobilinogen Normal Ur Leukocyte Esterase 100 H Urine RBC 0 SEEN Urine WBC >100 SEEN Ur Squamous Epith Cells 0 SEEN Amorphous Sediment 4+ Urine Bacteria 0 SEEN Urine Mucus 0 SEEN ABG Data ABG results: ABG 08/02/23 14:41 Specimen Type RACHEL Sample Site R Brach O2 % 31.0 VBG pH 7.21 L VBG pO2 50 H VBG HCO3 20 L VBG Total CO2 22 L VBG O2 Sat (Calc) 76 H VBG Base Excess -8 L POC Mix VBG pCO2 Pt Tmp 51.2 H O2 Delivery Device Venti Mask Crit Call To/Read Back Yes Blood Gas Notified Whom tj Blood Gas Notified Time 14:44:29 Radiography Diagnostic Testing: Clinical Impression(s) from Imaging Studies Chest X-Ray 08/02/23 13:45 IMPRESSION: Stable chest with no acute or emergent finding. Study compromised by patient''s habitus, as outlined above. Electronically Signed: Laurent Springer MD at 14:21 EDT , Chest X-Ray 08/02/23 14:50 IMPRESSION: Endotracheal tube below the antionette and should be withdrawn at least 4-5 cm. Discussed case with Dr. Hernandez after the second chest x-ray performed later today. Dr. Hernandez reported that there were bilateral breath sounds present. See discussion above. N.B. : The above Results were Read Back by Laurent Springer MD to Arias Hernandez MD, and understanding confirmed on 08/02/2023 15:38:58 (ET). Electronically Signed: Laurent Springer MD at 15:40 EDT , ADDENDUM: 08/02/23 1547 IMPRESSION: Endotracheal tube below the antionette and should be withdrawn at least 4-[address]iscuss[address] case [address] Hernandez after the second chest x-ray performed later today. Dr. Hernandez reported that there were bilateral breath sounds present. See discussion above. N.B. : The above Results were Read Back by Laurent Springer MD to Arias Hernandez MD, and understanding confirmed on 08/02/2023 15:38:58 (ET). Electronically Signed: Laurent Springer MD at 15:40 EDT , Rhythm Strip Rhythm Strip: Sinus Tach Rate: 115 Ectopy: None Discharge Plan Dx/Rx/DC Orders Clinical Impression: Sepsis, Acute hypotension, Acute dehydration, Metabolic acidosis, End stage chronic kidney disease, Acute UTI, Respiratory failure, Hypotension, Hx of spina bifida, Bradycardia, Septic shock, Ventricular tachycardia, Pulseless electrical activity Disposition Disposition: Acute Care [facility]
[2023-08-02 17:33] LABS: Reflex Lactate? Y
--- NOTE | 2023-08-02 18:45 | CHAPLAIN ---
Type of Pastoral Visit ___ Initial Visit ___ Follow-up Visit ___ On-call Visit ___ General Patient Visit ___ Spiritual Assessment ___ Family Conference _x__ Bereavement ___ Rapid Response _x__ Code Blue ___ Other (describe below) Pastoral Care Referral From ___ Patient ___ Family ___ Nurse ___ Physician ___ Electric Deicer Inspector ___ Filter Pulp Washer _x__ Other (describe below) Sacrament/Intervention _x__ Active listening ___ Anointing ___ Muslim _x__ Bereavement ___ Communion ___ Ashley exploration ___ _x__ Life review _x__ Prayer ___ Reconciliation ___ Sacrament of Sick _x__ Supportive presence ___ Wedding ___ Other (describe below) Pastoral Comments responded to code blue in the ED and met with parents of the patient who were very distraught; offered presence and support throughout the afternoon as the patient was intubated and coded three additional times; family desired for aggressive measures and medical team was active; this propulsion systems engineer went back and forth between medical team and family to give updates and offer beverages, presence, opportunities to talk and express themselves, asking about patient's life and interest, and giving prayers; parents were joined by other sons and again spiritual and emotional support was offered; pt did and gave time then for family to process, escorted them into room, waited for additional family members to arrive, offered prayers and scriptures at bedside; assisted in moving people in and out of room; offered support to staff as well
--- NOTE | 2023-08-02 20:41 | ED.RN ---
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
== END 2023-08-02 20:30 ==
LOC: ED 14:05 → ICU 15:18
PROVIDERS: Emergency Medicine; Emergency Provider Internal Medicine; PCP Family Medicine; Visit Provider Internal Medicine
DX: J96.90 Respiratory failure, unspecified, unspecified whether with hypoxia or hypercapnia (principal); I13.2 Hypertensive heart and chronic kidney disease with heart failure and with stage 5 chronic kidney disease, or end stage renal disease; G82.20 Paraplegia, unspecified; N18.6 End stage renal disease; Z93.6 Other artificial openings of urinary tract status; A41.9 Sepsis, unspecified organism; Q05.9 Spina bifida, unspecified; I50.22 Chronic systolic (congestive) heart failure; I95.9 Hypotension, unspecified; E87.20 Acidosis, unspecified; N39.0 Urinary tract infection, site not specified; E86.0 Dehydration; Z99.2 Dependence on renal dialysis; G47.33 Obstructive sleep apnea (adult) (pediatric); Z99.89 Dependence on other enabling machines and devices; F41.9 Anxiety disorder, unspecified; Z79.899 Other long term (current) drug therapy
CPT/HCPCS: 36556; 31500; 71045; 80053; 81001; 82803; 83605; 85025; 85610; 85730; 87040; 87077; 87086; 87088; 87149; 87631; 92950; 93005; 94002; 99252; 99284; J2020; J7030; J7050; A4216; G0463